=== PATIENT | female | born 1960 | race Caucasian/White ===

== ENCOUNTER 2024-01-07 12:20 | Inpatient (IN) | payer MEDICARE, SELFPAY ==
[2024-01-07] VITALS (14 sets, daily range): BP systolic 92–132; BP diastolic 70–115; PULSE 88–144; RESP 14–25; TEMP 36.1–37.1; O2SAT 94–100; BMI 53.1
--- NOTE | ~2024-01-07 | XR_ITS ---
EXAMINATION: XR chest PICC line Exam Date/Time: 01/12/2024 16:25 CDT HISTORY: PICC line placement Comparison: 01/07/2024. RESULT: Lines, tubes, and devices: New right upper extremity PICC which doubles back into an upper extremity vein, tip excluded from the [id number]. Lungs and pleura: Clear. Cardiomediastinal silhouette: Stable. Other: No acute osseous or upper abdominal finding. IMPRESSION: Malpositioned right upper extremity PICC. Discussed with technologist, practitioner aware at the time of the procedure, PICC apparently removed with a plan to place a central line. Reviewed, dictated and finalized at location K. IMPRESSION: Malpositioned right upper extremity PICC. Discussed with technologist, nigeltiti marli aware at the time of the procedure, PICC apparently removed with a plan to place a central line.
--- NOTE | ~2024-01-07 | US_ITS ---
EXAMINATION: US venous doppler [facility] DATE: 01/08/2024 09:13 INDICATION: Bilateral lower limb pain, swelling and erythema TECHNIQUE: Grayscale ultrasound images without and with compression and Doppler ultrasound images of the bilateral lower extremity veins were obtained. COMPARISON: None. FINDINGS: The visualized portions of right common femoral vein, profunda (deep) femoral vein, femoral vein, pop liteal vein, posterior tibial veins, peroneal veins, gastrocnemius vein and greater saphenous vein ou tflow are patent. The visualized portions of left common femoral vein, profunda femoral vein, femoral vein, popliteal v ein, posterior tibial veins, peroneal veins, gastrocnemius vein and greater saphenous vein outflow ar e patent. IMPRESSION: 1. No deep venous thrombosis in either lower limb. Reviewed, dictated and finalized at location B.
--- NOTE | ~2024-01-07 | XR_ITS ---
EXAMINATION: XR chest 1V portable Exam Date/Time: 01/07/2024 22:35 CDT HISTORY: rapid atrial fibrillation Comparison: None. RESULT: Lines, tubes, and devices: None. Lungs and pleura: Lordotic positioning. No focal consolidation, pleural effusion, or pneumothorax. Cardiomediastinal silhouette: Normal heart size. Somewhat nodular opacities over the left hilum. Other: No acute osseous or upper abdominal finding. IMPRESSION: Left hilar opacities may represent pulmonary arterial enlargement, as can be seen with pulmonary laurel rial hypertension, and/or lymphadenopathy. Reviewed, dictated and finalized at location K. IMPRESSION: Left hilar opacities may represent pulmonary arterial enlargement, as can be se en with pulmonary arterial hypertension, and/or lymphadenopathy.
--- NOTE | ~2024-01-07 | US_ITS ---
EXAMINATION: US renal BI DATE: 01/08/2024 09:13 INDICATION: Renal insufficiency. TECHNIQUE: Multiple ultrasound grayscale images of the kidneys were obtained. COMPARISON: None. FINDINGS: The right kidney measures 10.8 x 5.3 x 5.5 cm. The left kidney measures 9.8 x 6.0 x 4.3 cm. The kidne ys demonstrate normal echogenicity. There is no hydronephrosis in either kidney. No stones identifie d. The bladder is is not visualized, likely decompressed with patient reportedly recently voided. IMPRESSION: 1. Normal kidneys without hydronephrosis. Reviewed, dictated and finalized at location B.
--- NOTE | 2024-01-07 12:58 | PC.NURSE ---
spoke with RN in wound clinic. will come down for evaluation
--- NOTE | 2024-01-07 13:06 | ED.WOUNDLAC ---
HPI - Wound/Laceration General Chief Complaint: Wound/Laceration Stated Complaint: weird growth on my legs Time Seen by Provider: 01/07/24 12:39 History of Present Illness HPI narrative: Patient is a 63-year-old female presenting with wounds on her legs. Patient states that for the last 5-6 weeks she has had wounds on both of her lower legs. States that they started out as small blisters that then expanded and have not gone away. States that they slough a lot of white material when she cleans them with certain products. States that they do not bleed when she does this. States that she is concerned about infection. She does not have a PCP. She has had some intermittent nausea but denies other systemic symptoms. Related Data Home Medications Medication Instructions Recorded Confirmed sotalol 80 mg tablet 80 mg PO DAILY 01/07/24 01/07/24 Allergies Allergy/AdvReac Type Severity Reaction Status Date / Time codeine Allergy Unknown Other Verified 01/07/24 12:21 diazepam Allergy Unknown Other Verified 01/07/24 12:21 Review of Systems Review of Systems: All systems reviewed & are unremarkable except as noted in HPI and below PMFSH Past Medical History Medical History Cervical cancer (2011) Paroxysmal atrial fibrillation Surgical History Surgical History History of hysterectomy (2011) For cervical cancer. Family History Family History Mother CKD (chronic kidney disease) Father Lung cancer Sibling Non-Hodgkin lymphoma Social History Social History Social History: Surrogate medical decision maker: Kishan Forrester, brother. Code status: Full code. Smoking status: Never smoker Alcohol intake: never Substance use: never Do You Feel Safe in your Home?: Yes Lack of Transportation: YES Lack of Food: Never True Current Housing: I Have Housing Concerned About Future Housing: No Difficulty Paying Gas/Electric Bills: No Difficulty Paying for Meds: No Currently Unemployed: No Education: Master's Degree or Higher Difficulty w/ Childcare or Family Care: No Additional living arrangements comments: The patient lives in her own home in [place]. She has a boxer named Dana. 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. 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: No Exam Narrative: GENERAL: Nontoxic, no acute distress HEAD: Normocephalic, atraumatic. EYES: PERRLA and EOMI. ENT: grossly unremarkable NECK: Supple. CHEST: Clear to auscultation. No respiratory distress. HEART: Regular rate and rhythm ABDOMEN: Soft, nontender, nondistended EXTREMITIES: bilateral pitting edema lower legs SKIN: Warm, large superficial wounds anterior shins with thick white fibrous material sloughing off in varying degrees, some weeping of serous fluid, no bleeding NEURO: No focal deficits. Alert and oriented x3. PSYCH: Normal mood and affect. Course Vital Signs Vital signs: Vital Signs Temperature 96.9 F L 01/07/24 12:22 Pulse Rate 124 H 01/07/24 12:22 Respiratory Rate 20 01/07/24 12:22 Blood Pressure 132/115 H 01/07/24 12:22 Pulse Oximetry 98 01/07/24 12:22 Oxygen Delivery Room Air 01/07/24 12:22 Temperature 97 F L 01/14/24 05:56 Pulse Rate 84 01/14/24 12:00 Respiratory Rate 18 01/14/24 05:56 Blood Pressure 110/82 01/14/24 05:56 Pulse Oximetry 97 01/14/24 05:56 Oxygen Delivery Room Air 01/14/24 08:00 MDM - Wound/Laceration MDM Narrative Medical decision making narrative: 63-year-old female presenting with bilateral leg wounds. Patient is tachycardic, otherwise vitals are within normal limits. EKG per my interpretation shows AFib with RVR. Wound care graciously came to see the pat
--- NOTE | 2024-01-07 13:23 | ECG_ITS ---
Measurements Intervals [place] Rate: 148 P: TN: 0 QRS: 56 QRSD: 100 T: 29 QT: 303 QTc: 477 Interpretive Statements ATRIAL FIBRILLATION WITH RAPID VENTRICULAR RESPONSE INCOMPLETE RIGHT BUNDLE BRANCH BLOCK LOW QRS VOLTAGE IN PRECORDIAL LEADS BASELINE ARTIFACT- II, III, AVF ABNORMAL ECG NO PREVIOUS ECG AVAILABLE FOR COMPARISON Electronically Signed On 01-07-2024 13:44:42 CDT by Vernon Mcgowan D.O.
[2024-01-07 13:32] LABS: Basophils Absolute Auto 0.1 K/mm3 (0.0-0.1); Basophils Percent Auto 0.5 % (0.2-1.2); Eosinophils Absolute Auto 0.1 K/mm3 (0-0.3); Eosinophils Percent Auto 0.5 % (0-4.4); Hematocrit 44.2 % (37.0-47.0); Hemoglobin 14.7 g/dL (12.0-15.0); Immature Granulocyte Absolute 0.07 K/mm3 (0.00-0.031); Immature Granulocyte Percent A 0.7 % (0-0.5); Lymphocytes Absolute Auto 1.07 K/mm3 (0.9-3.2); Lymphocytes Percent Auto 10.6 % (18.3-44.2); Mean Corpuscular HGB Conc 33.3 g/dl (32-36); Mean Corpuscular Hemoglobin 30.4 pg (26-34); Mean Corpuscular Volume 91.5 fl (80-100); Mean Platelet Volume 9.2 fl (7.4-10.4); Monocytes Absolute Auto 0.7 K/mm3 (0.1-0.6); Monocytes Percent Auto 7.3 % (2.6-8.5); Neutrophils Absolute Auto 8.1 K/mm3 (1.3-6.7); Neutrophils Percent Auto 80.4 % (45.5-73.1); Platelet Count Result 390 k/mm3 (150-375); Red Blood Count 4.83 M/mm3 (4.2-5.4); Red Cell Distribution Width 13.9 % (11.5-14.5); White Blood Count 10.1 K/mm3 (4.5-10.0)
[2024-01-07] MEDS: SODIUM CHLORIDE 0.9% IV 1,000 ML 999 ML IV CONT ×2 (13:38→14:58)
[2024-01-07 13:39] LABS: Lactic Acid Reflex 1.2 mmol/L (0.7-2.0)
[2024-01-07] MEDS: KETOROLAC 30 MG/ML VIAL (*BKC) IV PUSH (13:39)
[2024-01-07 13:42] LABS: Alanine Aminotransferase 23 U/L (6-35); Albumin Level 3.9 g/dL (3.5-5.1); Alkaline Phosphatase 154 U/L (38-126); Anion Gap 10 mmol/L (8-16); Aspartate Amino Transferase 34 U/L (14-36); Bilirubin,Total 1.6 mg/dL (0.2-1.3); Blood Urea Nitrogen 45 mg/dL (7-17); Calcium 9.3 mg/dL (8.4-10.2); Carbon Dioxide 19 mmol/L (22-30); Chloride 102 mmol/L (98-107); Estimated Glomerular Filt Rate 45; Glucose 102 mg/dL (65-110); Potassium 5.3 mmol/L (3.4-5.0); Sodium 131 mmol/L (137-145)
--- NOTE | 2024-01-07 14:09 | PC.NURSE ---
wound clinic RN cleansed and dressed bilateral leg wounds, patient called out screaming that it was painful. offered pain medications to get over initial pain and patient refused. get them off of me . dressings removed and provider aware.
[2024-01-07] MEDS: CEFEPIME 1 GM/NS 50 ML 1 GM/50 ML BAG IVPB (14:55)
[2024-01-07] MEDS: dilTIAZem HCl INJ 25 MG/5 ML VIAL 10 MG IV PUSH (15:29)
[2024-01-07] MEDS: dilTIAZem 100 MG/100 ML 100 MG/100 ML BAG IV CONT ×2 (15:34→20:21)
[2024-01-07] MEDS: VANCOMYCIN 1,500 MG/NS 500 ML 1,500 MG/500 ML BAG 250 MG IVPB (15:56)
--- NOTE | 2024-01-07 16:47 | ADMGEN ---
This patient, Pili Forrester, was admitted to IMU Room 210-01. Patient/family oriented to hospital policies and general routines including ID bracelet, bed and alarms, visiting hours, pain management, procedures, bathroom and other care routines, personal items, smoking policy, room service/diet, and visiting hours. Information on how to activate the Rapid Response Team has been discussed. Patient/Family are encouraged to report perceived risks to care and to ask questions if they do not understand what they are told or what they should do.
--- NOTE | 2024-01-07 22:15 | PM.IMHP ---
H&P: HPI History of Present Illness Date/Time: 01/07/24 19:30 Chief Complaint: Lower extremity wounds. Narrative: This is a pleasant 63-year-old female with paroxysmal atrial fibrillation and cervical cancer in 2011 who presented to the emergency department via private vehicle from home for evaluation of lower extremity wounds. The patient provides the following history. About 6 weeks ago she developed a couple of small blisters on her shins which progressed in size rapidly along with swelling in her legs. Eventually the blisters burst on their own and drained serous fluid. Since that time they have been quite painful and she has noticed white/yellow plaquing around the periphery. She has been trying to care for them at home using Betadine but the areas have not improved and she decided to come in today for evaluation to rule out infection. She has otherwise been feeling okay. On arrival to the emergency department she was found to be in atrial fibrillation with rapid ventricular response and she admits that she has had palpitations and racing heart with activity for an unknown period of time. She is a patient of Dr. Pfeiffer and he prescribes her sotalol however she does not take it as prescribed, only taking 40 mg daily due to ongoing issues with low blood pressures. She has not been on anticoagulation for quite some time. Her appetite has been okay. She has no known history of congestive heart failure or venous thromboembolism. She denies fever, chills, sweats, chest pain, pleuritic pain, cough, shortness of breath, nausea, vomiting, diarrhea, and dysuria. In the ED: She was afebrile on arrival and was in atrial fibrillation with rapid ventricular response as above. Blood pressures have been towards the lower end of normal. Labs were significant for a WBC count of 10.1, sodium 131, potassium 5.3, BUN 45, creatinine 1.20, lactic acid 1.2. EKG showed atrial fibrillation with rapid ventricular response and incomplete right bundle-branch block. She was started on a diltiazem drip with improvement in her rate. She was given a dose of cefepime and vancomycin for possible infection of the legs. She is being admitted in this setting for further treatment and evaluation. Review of Systems Review of Systems: Twelve systems were reviewed and are negative except for as per HPI. [facility] Past Medical History Medical History (Updated 01/08/24 @ 00:10 by Leonor Garcia PA-C) Cervical cancer (2012) Paroxysmal atrial fibrillation Surgical History Surgical History (Updated 01/07/24 @ 22:21 by Leonor Garcia PA-C) History of hysterectomy (2012) For cervical cancer. Family History Family History Mother CKD (chronic kidney disease) Father Lung cancer Sibling Non-Hodgkin lymphoma Social History Social History (Updated 01/07/24 @ 22:22 by Leonor Garcia PA-C) Social History: Surrogate medical decision maker: Kishan Forrester, brother. Code status: Full code. Smoking status: Never smoker Alcohol intake: never Substance use: never Do You Feel Safe in your Home?: Yes Lack of Transportation: YES Lack of Food: Never True Current Housing: I Have Housing Concerned About Future Housing: No Difficulty Paying Gas/Electric Bills: No Difficulty Paying for Meds: No Currently Unemployed: No Education: Master's Degree or Higher Difficulty w/ Childcare or Family Care: No Additional living arrangements comments: The patient lives in her own home in [place]. She has a boxer named Dana. 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: No Meds Home Medications and Allergies Home Medications Medication Instructions Recorded Confirmed Type sotalol 80 mg tablet 80 mg PO DAILY 01/07/24 01/07/24 History Allergies Allergy/AdvReac Type Severity Reaction Status Date / Time c
[2024-01-07 23:22] LABS: Anion Gap 11 mmol/L (8-16); Blood Urea Nitrogen 44 mg/dL (7-17); Carbon Dioxide 13 mmol/L (22-30); Chloride 109 mmol/L (98-107); Potassium 4.7 mmol/L (3.4-5.0); Sodium 133 mmol/L (137-145)
[2024-01-07 23:23] LABS: Creatine Kinase 30 U/L (30-135); Estimated CRCL calculation 67 ml/min; Estimated Glomerular Filt Rate 56; Glucose 89 mg/dL (65-110); Magnesium 2.3 mg/dL (1.6-2.3)
[2024-01-07 23:31] LABS: NT Pro B Type Natriuretic Pept 6160 pg/mL (19.9-100)
[2024-01-07] MEDS: ACETAMINOPHEN 325 MG TABLET 650 MG PO (23:53)
[2024-01-08] VITALS (22 sets, daily range): BP systolic 96–120; BP diastolic 56–83; PULSE 78–135; RESP 12–18; TEMP 36.1–36.7; O2SAT 94–100
--- NOTE | 2024-01-08 01:49 | PC.NURSE ---
Pt attempted to get out of bed on her own. Bed alarm going off. Talked to pt about the importance of safety while in the hospital. Pt stated her legs are really hurting and she wants to get up. Recliner brought to pt's room. Pt agreeable to using the recliner. Pt given call light prior to nurse leaving the room and reminded to use it. Chair alarm in place.
[2024-01-08 05:11] LABS: Estimated CRCL calculation 67 ml/min; Estimated Glomerular Filt Rate 56
[2024-01-08 05:43] LABS: Free T4 Free Thyroxine Reflex 1.16 ng/dL (0.78-2.19)
[2024-01-08 06:30] LABS: Total Triiodothyronine (T3) 0.89 NG/ML (0.97-1.69)
[2024-01-08] MEDS: ACETAMINOPHEN 325 MG TABLET 650 MG PO (09:23)
[2024-01-08] MEDS: ENOXAPARIN 40 MG/0.4 ML SYRINGE SUB-Q (09:23)
[2024-01-08] MEDS: VANCOMYCIN 1,500 MG/NS 500 ML 1,500 MG/500 ML BAG 250 MG IVPB (09:43)
--- NOTE | 2024-01-08 10:47 | PM.CNCAR ---
Assessment and Plan Assessment and plan (1) Atrial fibrillation with rapid ventricular response: Code(s): I48.91 - Unspecified atrial fibrillation Status: Acute Assessment and Plan: Patient has longstanding complicated history with atrial flutter status post caval tricuspid isthmus ablation 2012 with paroxysmal atrial fibrillation subsequently. She was previously seen by electrophysiology many years ago but was lost to follow-up and then was seen again in our office in 2020 with last visit August 2022. CHADS2 Vasc score 2 female, age 65 or older). Therefore, according to the most recent guidelines aspirin daily is acceptable less additional risk factor identified such as hypertension, CHF, diabetes mellitus, CAD/PAD, CVA etc. as such, continue aspirin 81 mg daily without resume Xarelto unless BP tender cardioversion or to be undertaken. Given her complex and longstanding history this will not be our plan is likelihood for success more main is sinus rhythm with cardioversion expected to be very low. Unfortunately, complicated management for multiple reasons including hypertensive response to various medications, noncompliance with follow-up and medications with AFib with RVR in setting of multiple painful lower extremity wounds and clinical suspicion for cellulitis. Patient is relatively asymptomatic with atrial fibrillation. She is tolerating diltiazem 2.5 milligram/hour continuous infusion at this time. Sotalol 80 mg daily which she was taking was not controlling her atrial fibrillation with regards to rhythm therefore continuation of her prior home regimen less likely to be effective or recommended. We discussed very stops quitting AV nikky blocking agents, antiarrhythmics including but not limited to amiodarone, dronedarone, sotalol. Patient has intolerance to flecainide in the past. If patient unable to tolerate specific antiarrhythmic and her AV nikky blocking agent due to hypotension, which were limited in this regard. Dronedarone may be a reasonable option although this is a b.i.d. medication the must be taken with food and require at least 3-4 day washout of sotalol prior to initiation. If she is able to tolerate oral diltiazem with adequate heart rate control this may be reasonable. For now as she has only just begun receiving IV antibiotics for painful lower extremity leg wounds will continue IV diltiazem 2.5 milligram/hour for the time being with plans to transition to oral regimen as tolerated tomorrow. ED continue to monitor BP closely. Local wound care. I suspect her heart rate control may be somewhat more manageable once her pain is improved and underlying infection treated. Furthermore, considering mildly abnormal thyroid with TSH 6.960 would prefer to avoid amiodarone in any event. -goal for management will be heart rate control strategy as opposed to rhythm control provided she is relatively asymptomatic and tolerating medical therapy. As above, management complicated due to recorded tolerance is, failures a prior medical therapy including AV nikky blocking agents and antiarrhythmic therapy. She may benefit from outpatient electrophysiology consultation for further recommendations in this regard. Unlikely she has an AFib ablation candidate given her history and duration of atrial fibrillation. -obtain 2D echo to assess LV size/function, valve pathology, chamber size and pulmonary pressures. Recommendations to follow. -apnea link overnight to screen for sleep apnea. (2) Wounds, multiple: Code(s): T07.XXXA - Unspecified multiple injuries, initial encounter Status: Acute Assessment and Plan: As above, continue IV vancomycin and ceftriaxone. Cultures pending. Wound care. Per primary service. (3) Edema of both legs: Code(s): R60.0 - Localized edema Status: Acute Assessment and Plan: Local wound management. Patient is not clinically in decompensated heart failure present. Elevate l
[2024-01-08] MEDS: SODIUM CHLORIDE 0.9% IV 1,000 ML 100 ML IV CONT (12:30)
[2024-01-08] MEDS: MORPHINE SULFATE (*CRX) 4 MG/ML INJ IV PUSH (12:31)
[2024-01-08] MEDS: HYDROcodone/acetaminophen (*CRX) 5-325 MG TABLET 1 TAB PO (14:09)
--- NOTE | 2024-01-08 14:28 | PCPTNOTE ---
pt reports she is having pain in her feet and is not feeling up to PT today, but plans to participate tomorrow
[2024-01-08] MEDS: ONDANSETRON INJ 4 MG/2 ML VIAL IV PUSH (15:55)
--- NOTE | 2024-01-08 17:05 | PM.IMPN ---
Progress Note: A&P Assessment and Plan (1) Hypothyroidism: Code(s): E03.9 - Hypothyroidism, unspecified Status: Acute (2) Morbid obesity with BMI of 50.0-59.9, adult: Code(s): E66.01 - Morbid (severe) obesity due to excess calories; Z68.43 - Body mass index [BMI] 50.0-59.9, adult Status: Acute (3) Noncompliance w/medication treatment due to intermit use of medication: Code(s): Z91.148 - Patient's other noncompliance with medication regimen for other reason Status: Acute (4) Edema of both legs: Code(s): R60.0 - Localized edema Status: Acute (5) Wounds, multiple: Code(s): T07.XXXA - Unspecified multiple injuries, initial encounter Status: Acute (6) Renal insufficiency: Code(s): N28.9 - Disorder of kidney and ureter, unspecified Status: Acute (7) Electrolyte abnormality: Code(s): E87.8 - Other disorders of electrolyte and fluid balance, not elsewhere classified Status: Acute (8) Atrial fibrillation with rapid ventricular response: Code(s): I48.91 - Unspecified atrial fibrillation Status: Acute Plan Patient placed under director traffic and planning, advanced to full inpatient status She has multiple issues going on and she admits to be a non-compliant with meds at home Continuous cardiac tele-monitoring Continue with IV Cardizem drip to be titrated to keep heart rate around 100 Monitor cardiac enzymes ?3 Full 2-D echo with color-flow and doppler ordered in am to evaluate cardiac structure and function Cardiology consultation for evaluation, further treatment recommendations and work up Patient has bilateral lower leg weeping ulcers without much intervention over the last few weeks Continue with IV antibiotics in the form of IV vancomycin and Rocephin 9 dressing changes as per wound care Strictly advised patient to be compliant with treatment for her medical issues and bilateral lower leg wounds Patient has mild hypothyroidism and she will be started on low-dose Synthroid PT/OT evaluation ordered ? Patient seen and examined at bedside during my morning rounds ? Collaborated with patient's nurse at the bedside in detail and addressed all concerns ? Labs, electrolytes, radiology, investigations and test results reviewed ? Consult/Nursing/Ancilliary notes on the chart reviewed and appreciated ? Spoke with patient/family at the bedside and answered all the questions that they had Repeat labs in a.m. Electrolyte replacement as per protocol. Patient will be monitored very closely on the floor. Further recommendations as per the hospital course. Personal history of noncompliance with medical treatment and regimen: STRICTLY advised patient to be compliant with meds and medical recommendations. Advised patient to get established with a PCP upon discharge, take care of meds, diet and bring patient's life back on track. Time Spent With Patient Time with patient: 15 - 25 minutes Subjective Date/time seen: 01/08/24 17:05 Interval history: Patient seen and evaluated bedside. She has bilateral swelling of her legs with weeping ulcers for multiple weeks without much medical intervention. On low-dose IV Cardizem drip for A.fib control. Review of Systems Review of Systems: 14 systems were reviewed with pertinent positives and negatives per HPI. Except as documented in the HPI/progress notes, all other systems were reviewed and are negative. All systems reviewed & are unremarkable except as noted in HPI and below Exam Narrative: PHYSICAL EXAMINATION: Vital signs: Please see the chart General physical exam: Super morbidly obese female, sitting on chair at bedside, complains of being tired and fatigued Head/eyes: Atraumatic, EOMI, PERRLA ENT: Moist mucous membranes, nasal passages clear Neck: Supple, full range of motion, trachea midline CVS: S1 + S2, irregularly irregular rate and rhythm Respiratory: Bilaterally decreased air entry in both lung hurt
--- NOTE | 2024-01-08 18:17 | PC.NURSE ---
Patient appears to be more lethargic and have a dusky but clammy skin tone when this nurse entered room. Blood sugar and vital signs obtained. Patient states she just feels tired and still nauseated. Dr. Madrid called and notified of blood pressure and that the patient still isn't feeling well, nauseated and looks dusky and clammy. He states to just watch her for now and that he will swing by to see her in a bit.
[2024-01-08 18:23] LABS: Glucose Point of Care 91 mg/dl (65-105)
[2024-01-08] MEDS: dilTIAZem 100 MG/100 ML 100 MG/100 ML BAG IV CONT (21:46)
[2024-01-09] VITALS (22 sets, daily range): BP systolic 94–108; BP diastolic 53–68; PULSE 65–141; RESP 17–22; TEMP 35.8–36.7; O2SAT 95–100
[2024-01-09] MEDS: SODIUM CHLORIDE 0.9% IV 1,000 ML 75 ML IV CONT (02:05)
[2024-01-09] MEDS: dilTIAZem 100 MG/100 ML 100 MG/100 ML BAG IV CONT (02:51)
--- NOTE | 2024-01-09 02:52 | PC.NURSE ---
Addendum entered by Lisa Roca, RN 01/09/24 02:56: Pt. did not receive 0400 dose of vanco due to no IV access. aware. Original Note: Consulted MD for recommendation on pt.'s cardizem gtt. We lost all IV access, and are unable to get another one, even with our [employer] efforts. MD ordered 60 mg Cardizem PO to hold her over through the night.
[2024-01-09] MEDS: dilTIAZem HCL 60 MG TABLET PO ×4 (03:58→21:50)
[2024-01-09 04:56] LABS: Basophils Absolute Auto 0.1 K/mm3 (0.0-0.1); Basophils Percent Auto 0.5 % (0.2-1.2); Eosinophils Absolute Auto 0.1 K/mm3 (0-0.3); Eosinophils Percent Auto 1.4 % (0-4.4); Hemoglobin 13.9 g/dL (12.0-15.0); Immature Granulocyte Absolute 0.08 K/mm3 (0.00-0.031); Immature Granulocyte Percent A 0.8 % (0-0.5); Lymphocytes Absolute Auto 0.93 K/mm3 (0.9-3.2); Lymphocytes Percent Auto 9.4 % (18.3-44.2); Mean Corpuscular HGB Conc 32.3 g/dl (32-36); Mean Corpuscular Hemoglobin 30.5 pg (26-34); Mean Corpuscular Volume 94.5 fl (80-100); Mean Platelet Volume 9.3 fl (7.4-10.4); Monocytes Absolute Auto 0.9 K/mm3 (0.1-0.6); Monocytes Percent Auto 9.4 % (2.6-8.5); Neutrophils Absolute Auto 7.8 K/mm3 (1.3-6.7); Neutrophils Percent Auto 78.5 % (45.5-73.1); Platelet Count Result 335 k/mm3 (150-375); Red Blood Count 4.55 M/mm3 (4.2-5.4); Red Cell Distribution Width 14.1 % (11.5-14.5); White Blood Count 9.9 K/mm3 (4.5-10.0)
[2024-01-09 05:20] LABS: Anion Gap 7 mmol/L (8-16); Blood Urea Nitrogen 27 mg/dL (7-17); Carbon Dioxide 19 mmol/L (22-30); Chloride 108 mmol/L (98-107); Estimated CRCL calculation 94 ml/min; Estimated Glomerular Filt Rate > 60; Glucose 97 mg/dL (65-110); Phosphorus 3.7 mg/dL (2.5-4.5); Sodium 134 mmol/L (137-145)
[2024-01-09] MEDS: ENOXAPARIN 40 MG/0.4 ML SYRINGE SUB-Q (09:01)
[2024-01-09] MEDS: PERFLUTREN LIPID MICROSPHERES 1.5 ML VIAL DILUTED TO 10 ML TOTAL VOLUME IV PUSH (09:45)
[2024-01-09] MEDS: VANCOMYCIN 1,500 MG/NS 500 ML 1,500 MG/500 ML BAG 250 MG IVPB (10:13)
--- NOTE | 2024-01-09 10:50 | PM.PNCARD ---
Progress Note: A&P Assessment and Plan (1) Atrial fibrillation with rapid ventricular response: Code(s): I48.91 - Unspecified atrial fibrillation Status: Acute Assessment and Plan: Patient has longstanding complicated history with atrial flutter status post caval tricuspid isthmus ablation 2012 with paroxysmal atrial fibrillation subsequently. She was previously seen by electrophysiology many years ago but was lost to follow-up and then was seen again in our office in 2020 with last visit August 2022. Sotalol discontinued Pursuing rate control with Diltiazem - rate generally controlled in the 70's - 80's Discontinue Diltiazem gtt and continue p.o. diltiazem 60mg q6h [id number] score is 2 - she had been anticoagulated in the past and stopped taking Xarelto for unknown reasons. Will discuss risks and benefits further with patient and may restart DOAC prior to discharge. (2) Wounds, multiple: Code(s): T07.XXXA - Unspecified multiple injuries, initial encounter Status: Acute Assessment and Plan: As above, continue IV vancomycin and ceftriaxone. Cultures pending. Wound care. Per primary service. (3) Edema of both legs: Code(s): R60.0 - Localized edema Status: Acute Assessment and Plan: Local wound management. Patient is not clinically in decompensated heart failure present. Elevate legs, continue IV antibiotics. (4) Noncompliance w/medication treatment due to intermit use of medication: Code(s): Z91.148 - Patient's other noncompliance with medication regimen for other reason Status: Acute Assessment and Plan: Noncompliance with Xarelto in the past (5) Morbid obesity with BMI of 50.0-59.9, adult: Code(s): E66.01 - Morbid (severe) obesity due to excess calories; Z68.43 - Body mass index [BMI] 50.0-59.9, adult Status: Acute (6) Hypothyroidism: Code(s): E03.9 - Hypothyroidism, unspecified Status: Acute Assessment and Plan: New diagnosis elevated TSH likely subclinical but need to factor in with regards to medical therapy. Defer to primary service for definitive management. Unlikely this is contributing significantly to atrial fibrillation her arrhythmia history is longstanding. Subjective Date/time seen: 01/09/24 10:50 Interval history: Cardiology follow up for atrial fibrillation Feels better today. No palpitations, shortness of breath, or chest pain. Review of Systems Review of Systems: Remainder of the review of systems is otherwise negative aside from that noted in the HPI. All systems reviewed & are unremarkable except as noted in HPI and below Constitutional: Constitutional: Reports as per HPI and Reports no additional constitutional complaints Eyes: Eyes: Reports as per HPI and Reports no additional eye complaints ENT: Reports system reviewed and no additional complaints, except as documented and Reports as per HPI Cardiovascular: Cardiovascular: Reports as per HPI and Reports no additional cardiovascular complaints Respiratory: Respiratory: Reports as per HPI and Reports no additional respiratory complaints Gastrointestinal: Gastrointestinal: Reports as per HPI and Reports no additional gastrointestinal complaints Genitourinary: Genitourinary: Reports as per HPI Musculoskeletal: Musculoskeletal: Reports no additional musculoskeletal complaints and Reports as per HPI Integumentary/Breasts: Skin/Breast: Reports system reviewed and no additional complaints, except as docu and Reports as per HPI Neurologic: Reports system reviewed and no additional complaints, except as documented and Reports as per HPI Psychiatric: Psychiatric: Reports no additional psychiatric complaints and Reports as per HPI Endocrine: Endocrine: Reports no additional endocrine complaints and Reports as per HPI Hematologic/Lymphatic: Hematologic/Lymphatic: Reports no additional hematologic/lymphatic complaints and Repor
[2024-01-09] MEDS: MORPHINE SULFATE (*CRX) 4 MG/ML INJ IV PUSH (11:07)
--- NOTE | 2024-01-09 11:42 | PCOTNOTE ---
Addendum entered by Judith Davis, OT 01/09/24 13:41: Attempted 3rd time today and pt has been nauseous and just had an episode of emesis. Will attempt to see pt tomorrow as time allows. Original Note: Attempted to see pt twice this am. First attempt, pt was getting an Echo and on the second attempt, RN is getting ready to do a dressing change on BLEs which are weeping and RN asks that she not get up until dressing change completed. Will continue to follow.
[2024-01-09] MEDS: ONDANSETRON INJ 4 MG/2 ML VIAL IV PUSH (14:15)
--- NOTE | 2024-01-09 17:31 | PM.IMPN ---
Progress Note: A&P Assessment and Plan (1) Hypothyroidism: Code(s): E03.9 - Hypothyroidism, unspecified Status: Acute (2) Morbid obesity with BMI of 50.0-59.9, adult: Code(s): E66.01 - Morbid (severe) obesity due to excess calories; Z68.43 - Body mass index [BMI] 50.0-59.9, adult Status: Acute (3) Noncompliance w/medication treatment due to intermit use of medication: Code(s): Z91.148 - Patient's other noncompliance with medication regimen for other reason Status: Acute (4) Edema of both legs: Code(s): R60.0 - Localized edema Status: Acute (5) Wounds, multiple: Code(s): T07.XXXA - Unspecified multiple injuries, initial encounter Status: Acute (6) Renal insufficiency: Code(s): N28.9 - Disorder of kidney and ureter, unspecified Status: Acute (7) Electrolyte abnormality: Code(s): E87.8 - Other disorders of electrolyte and fluid balance, not elsewhere classified Status: Acute (8) Atrial fibrillation with rapid ventricular response: Code(s): I48.91 - Unspecified atrial fibrillation Status: Acute Plan Patient placed under motorcycle tester, advanced to full inpatient status She has multiple issues going on and she admits to be non-compliant with meds at home Continuous cardiac tele-monitoring AFib now under control control with heart rate 70-80 DC IV Cardizem drip, started patient on oral Cardizem as per Cardiology Monitor heart rate and blood pressure closely Full 2-D echo with color-flow and doppler ordered to evaluate cardiac structure and function which showed preserved left ventricular function with EF 50-55% Patient has bilateral lower leg weeping ulcers without much intervention over the last few weeks Continue with IV antibiotics in the form of IV vancomycin and Rocephin Dressing changes as per wound care ... A sweet dressing changes to Q 8-12 hours as she has consistently weeping wounds Wound cultures ordered from both left and right lower legs Strictly advised patient to be compliant with treatment for her medical issues and caring for bilateral lower leg wounds Patient has mild hypothyroidism hence started on low-dose Synthroid, which she refused as she has fluctuating thyroid levels and follows up with Endocrinology PT/OT evaluation ordered ? Patient seen and examined at bedside during my morning rounds ? Collaborated with patient's nurse at the bedside in detail and addressed all concerns ? Labs, electrolytes, radiology, investigations and test results reviewed ? Consult/Nursing/Ancilliary notes on the chart reviewed and appreciated ? Spoke with patient/family at the bedside and answered all the questions that they had Repeat labs in a.m. Electrolyte replacement as per protocol. Patient will be monitored very closely on the floor. Further recommendations as per the hospital course. Personal history of noncompliance with medical treatment and regimen: STRICTLY advised patient to be compliant with meds and medical recommendations. Advised patient to get established with a PCP upon discharge, take care of meds, diet and bring patient's life back on track. Time Spent With Patient Time with patient: 15 - 25 minutes Subjective Date/time seen: 01/09/24 17:31 Interval history: Patient lying in bed during my morning rounds. Feels tired and fatigued. Complains of weeping wounds in both legs. AFib is under control. IV Cardizem switched to p.o. Review of Systems Review of Systems: 14 systems were reviewed with pertinent positives and negatives per HPI. Except as documented in the HPI/progress notes, all other systems were reviewed and are negative. All systems reviewed & are unremarkable except as noted in HPI and below Exam Narrative: PHYSICAL EXAMINATION: Vital signs: Please see the chart General physical exam: Super morbidly obese female, sitting on chair at bedside, complains of being tired and fatigued Head/eyes: At
--- NOTE | 2024-01-09 18:18 | PC.NURSE ---
Transferred from IMU per hospital bed. No complaints voiced.
--- NOTE | 2024-01-09 18:25 | PC.NURSE ---
Addendum entered by Mercedes Gonzalez RN 01/09/24 18:28: This patient, Pili Forrester, was transferred to [ [facility]] on 01/09/24 at 1817. Personal belongings sent with patient. Report given to [Kelley ]. Appropriate documentation sent with patient. Original Note: This patient, Pili Forrester, was transferred to [ ] on 01/09/24 at 1825. Personal belongings sent with patient. Report given to [ ]. Appropriate documentation sent with patient.
--- NOTE | 2024-01-09 22:29 | ECHO_ITS ---
Patient Info Name: Pili Forrester Age: 63 years : 1960 Gender: Female Ht: 63 in Wt: 300 lbs BSA: 2.55 m2 HR: 76 bpm BP: 100 / 90 mmHg Heart Rhythm: Atrial Fibrillation Technical Quality: Good Exam Date: 01/09/2024 9:27 AM Exam Location: Echo Lab Patient Status: Inpatient Admit Date: 01/08/2024 Staff Ordering Physician: Leonor Garcia PA-C Vp Product Marketing: Jasmin Mckenna RDCS Attending Provider: Dennis Madrid MD Referring Physician: Edgar Correa MD; Exam Type: CA echo dop color flow w con Study Info Indications - suspected congestive heart failure, a fib Complete two-dimensional, color flow and Doppler transthoracic echocardiogram is performed with contrast to opacify the left ventricle and to improve the deliniation of the left ventricle endocardial borders. Contrast/Agitated Saline Contrast/Ag. Saline: Definity Amount: 3.00 ml Summary 1. Left ventricular chamber dimension is normal. 2. Left ventricular systolic function is normal, estimated at 50-55%. 3. Right ventricular chamber dimension is mildly enlarged. 4. Right ventricular systolic function is normal. 5. Left atrial chamber dimension is severely enlarged. 6. Right atrial chamber dimension is severely enlarged. 7. There is moderate to severe mitral valve regurgitation. This may be underestimated due to the eccentricity of the jet. 8. There is moderate tricuspid valve regurgitation. Left Ventricle Left ventricular chamber dimension is normal. Left ventricular systolic function is normal, estimated at 50-55%. There is no increased left ventricular wall thickness. Right Ventricle Right ventricular chamber dimension is mildly enlarged. Right ventricular systolic function is normal. Left Atria Left atrial chamber dimension is severely enlarged. Right Atria Right atrial chamber dimension is severely enlarged. Atrial Septum Intact interatrial septum visualized by color flow imaging. Aortic Valve The aortic valve is not well visualized. There is no aortic valve stenosis. There is trace aortic valve regurgitation. There is mild aortic valve calcification. Pulmonic Valve The pulmonic valve is not well visualized. There is trace pulmonic regurgitation. Mitral Valve There is moderate to severe mitral valve regurgitation. This may be underestimated due to the eccentricity of the jet. Tricuspid Valve There is moderate tricuspid valve regurgitation. Pericardium/Pleural There is no pericardial effusion. Inferior Vena Cava Dilated inferior vena cava with <50% collapse upon inspiration consistent with elevated right atrial pressure, 8 mmHg. Aorta The aortic root size at the sinus of Valsalva is normal. Left Ventricular Outflow Tract Name Value Normal LVOT 2D LVOT Diameter 1.75 cm LVOT Doppler LVOT Peak Gradient 4 mmHg LVOT Mean Gradient 2 mmHg LVOT VTI 24.12 cm LVOT VTI/AV VTI Ratio 0.90 LVOT Stroke Volume 58.22 ml LVOT CO 3.95 l/min LVOT CI 1.55 L/min/m2 Pulmonic Valv
[2024-01-10] VITALS (9 sets, daily range): BP systolic 99–131; BP diastolic 64–72; PULSE 60–91; RESP 14–16; TEMP 36.3–36.8; O2SAT 98–99
[2024-01-10] MEDS: SODIUM CHLORIDE 0.9% IV 1,000 ML 75 ML IV CONT ×2 (04:06→15:59)
[2024-01-10] MEDS: dilTIAZem HCL 60 MG TABLET PO ×4 (04:06→21:27)
[2024-01-10 04:39] LABS: Basophils Absolute Auto 0.1 K/mm3 (0.0-0.1); Basophils Percent Auto 0.7 % (0.2-1.2); Eosinophils Absolute Auto 0.2 K/mm3 (0-0.3); Eosinophils Percent Auto 2.8 % (0-4.4); Hematocrit 37.8 % (37.0-47.0); Hemoglobin 12.2 g/dL (12.0-15.0); Immature Granulocyte Absolute 0.05 K/mm3 (0.00-0.031); Immature Granulocyte Percent A 0.6 % (0-0.5); Lymphocytes Absolute Auto 1.22 K/mm3 (0.9-3.2); Lymphocytes Percent Auto 14.5 % (18.3-44.2); Mean Corpuscular HGB Conc 32.3 g/dl (32-36); Mean Corpuscular Hemoglobin 30.4 pg (26-34); Mean Corpuscular Volume 94.3 fl (80-100); Mean Platelet Volume 9.3 fl (7.4-10.4); Monocytes Percent Auto 11.6 % (2.6-8.5); Neutrophils Absolute Auto 5.9 K/mm3 (1.3-6.7); Neutrophils Percent Auto 69.8 % (45.5-73.1); Platelet Count Result 310 k/mm3 (150-375); Red Blood Count 4.01 M/mm3 (4.2-5.4); Red Cell Distribution Width 14.1 % (11.5-14.5); White Blood Count 8.4 K/mm3 (4.5-10.0)
[2024-01-10 04:45] LABS: Anion Gap 6 mmol/L (8-16); Blood Urea Nitrogen 23 mg/dL (7-17); Calcium 8.6 mg/dL (8.4-10.2); Carbon Dioxide 17 mmol/L (22-30); Chloride 109 mmol/L (98-107); Estimated CRCL calculation 94 ml/min; Estimated Glomerular Filt Rate > 60; Glucose 87 mg/dL (65-110); Potassium 4.4 mmol/L (3.4-5.0); Sodium 132 mmol/L (137-145)
[2024-01-10 04:51] LABS: Vancomycin Trough 12.4 ug/mL (10.0-20.0)
[2024-01-10] MEDS: VANCOMYCIN 1,500 MG/NS 500 ML 1,500 MG/500 ML BAG 250 MG IVPB (05:41)
[2024-01-10] MEDS: ENOXAPARIN 40 MG/0.4 ML SYRINGE SUB-Q (08:07)
[2024-01-10] MEDS: SODIUM BICARBONATE TAB 650 MG TABLET PO ×2 (09:32→15:58)
--- NOTE | 2024-01-10 09:49 | PM.PNCARD ---
Progress Note: A&P Assessment and Plan (1) Atrial fibrillation with rapid ventricular response: Code(s): I48.91 - Unspecified atrial fibrillation Status: Acute Assessment and Plan: Patient has longstanding complicated history with atrial flutter status post caval tricuspid isthmus ablation 2012 with paroxysmal atrial fibrillation subsequently. She was previously seen by electrophysiology many years ago but was lost to follow-up and then was seen again in our office in 2020 with last visit August 2022. Sotalol discontinued Pursuing rate control with Diltiazem - rate generally controlled in the 70's - 80's. Some transient tachycardia with activity. Will shift from short acting to extended release Diltiazem for dosing convenience. [id number] score is 2. With newest guidelines, a/c not necessary in this situation unless she develops another risk factor. (2) Wounds, multiple: Code(s): T07.XXXA - Unspecified multiple injuries, initial encounter Status: Acute Assessment and Plan: As above, continue IV vancomycin and ceftriaxone. Cultures pending. Wound care. Per primary service. (3) Edema of both legs: Code(s): R60.0 - Localized edema Status: Acute Assessment and Plan: Local wound management. Patient is not clinically in decompensated heart failure present. Elevate legs, continue IV antibiotics. (4) Noncompliance w/medication treatment due to intermit use of medication: Code(s): Z91.148 - Patient's other noncompliance with medication regimen for other reason Status: Acute Assessment and Plan: Noncompliance with Xarelto in the past (5) Morbid obesity with BMI of 50.0-59.9, adult: Code(s): E66.01 - Morbid (severe) obesity due to excess calories; Z68.43 - Body mass index [BMI] 50.0-59.9, adult Status: Acute (6) Hypothyroidism: Code(s): E03.9 - Hypothyroidism, unspecified Status: Acute Assessment and Plan: New diagnosis elevated TSH likely subclinical but need to factor in with regards to medical therapy. Defer to primary service for definitive management. Subjective Date/time seen: 01/10/24 09:49 Interval history: Cardiology follow up for atrial fibrillation Feels better today. No palpitations, shortness of breath, or chest pain. Date of service 01/10/2024: Not feeling well today - she is complaining of severe pain in her legs which are now open to air and bleeding from bandage removal, ambulation. She has also been feeling dizzy. Heart rate generally is controlled, but she does have some tachycardia with activity. Review of Systems Review of Systems: Remainder of the review of systems is otherwise negative aside from that noted in the HPI. All systems reviewed & are unremarkable except as noted in HPI and below Constitutional: Constitutional: Reports as per HPI and Reports no additional constitutional complaints Eyes: Eyes: Reports as per HPI and Reports no additional eye complaints ENT: Reports system reviewed and no additional complaints, except as documented and Reports as per HPI Cardiovascular: Cardiovascular: Reports as per HPI and Reports no additional cardiovascular complaints Respiratory: Respiratory: Reports as per HPI and Reports no additional respiratory complaints Gastrointestinal: Gastrointestinal: Reports as per HPI and Reports no additional gastrointestinal complaints Genitourinary: Genitourinary: Reports as per HPI Musculoskeletal: Musculoskeletal: Reports no additional musculoskeletal complaints and Reports as per HPI Integumentary/Breasts: Skin/Breast: Reports system reviewed and no additional complaints, except as docu and Reports as per HPI Neurologic: Reports system reviewed and no additional complaints, except as documented and Reports as per HPI Psychiatric: Psychiatric: Reports no additional psychiatric complaints and Reports as per HPI Endocrine: Endocrine: Reports
--- NOTE | 2024-01-10 12:30 | PHA.ABX.ID ---
Pharmacy ID Consult - Stewardship Interventions Type of Interventions: Other Pharmacy ID Note: Subjective Pharmacy was consulted by Coty Madrid regarding infectious diseases for Pili Forrester. Pili Forrester is a 63 year old F with concerns regarding potential cellulitis and wound infection. Background The patient is currently receiving Ceftriaxone 1g q12h and Vancomycin 1500 mg q18h (pharmacy to dose) (day 4 of antibiotics overall). The patient's PMH includes chronic wounds that are actively weeping. Cultures have been obtained with initial gram stain showing gram-negative rods. Other history per provider notes. No history of previous cultures. Appears no current concern of deeper/bone infection. Microbiology 01/09/24 12:03 Leg Left Wound Culture - Preliminary 01/07/24 14:53 Blood Blood Culture - Preliminary 01/07/24 14:18 Blood Blood Culture - Preliminary Laboratory Tests 01/07/24 01/07/24 01/08/24 13:22 13:22 04:35 WBC 10.1 H Creatinine 1.20 H 1.00 Estim Creat Clear Calc Lactic Acid 1.2 01/09/24 01/10/24 01/10/24 04:31 04:00 04:00 WBC 9.9 8.4 Creatinine 0.70 Estim Creat Clear Calc 94 Lactic Acid Assessment/Recommendation/Discussion Spoke very briefly with provider. Currently, would recommend following culture results to help guide targeted therapy. If any source control for wounds is needed, consider doing so. Duration of therapy should be from most recent source control. With a wound infection with this chronicity with no signs of systemic infection, often times a brief course of antibiotics are recommended - consider a 7-10 day course of targeted therapy after any applicable source control. With no culture history, consider targeted therapy from culture results (will follow for these results). Consider Ceftriaxone 2g q24h IV or a combination of oral therapy if appropriate as more information comes to light. Continue current therapy and consider targeted therapy when more information comes to light. Will continue to follow as appropriate. Please reach out if more information comes to light. Delvis Kidd, PharmD Infectious Disease/Antimicrobial Stewardship Pharmacist 01/10/24; 1230 WBC 8.4 K/mm3 (4.5-10.0) 01/10/24 04:00 Creatinine 0.70 mg/dL (0.7-1.0) 01/10/24 04:00 Estim Creat Clear Calc 94 ml/min 01/10/24 04:00
--- NOTE | 2024-01-10 13:26 | PCPTNOTE ---
Addendum entered by Hannah Brunner, SENIOR [employer] APPLICATION DEVELOPER 01/10/24 13:29: Pt was educated on mobility and increasing circulation will aid in decreasing her overall pain and improve her healing process to inturn leave the hospital sooner. Original Note: Pt refused therapy this afternoon due to open sores on B LE. Pt states she does not like being confined to her room but the alarms will not let her get up. She states she wants to walk around when she is ready and not when someone else is ready to walk her.
--- NOTE | 2024-01-10 13:46 | IVDEFINITY ---
Prior to administration of IV Definity the patient was educated on the risks and benefits of the imaging enhancing agent including potential adverse side effects. The patient verbalized understanding. Allergies were verified. No exclusion criteria were identified and at least one of the following inclusion criteria were met: 1) physician request, 2) patient technically difficult to image (per the [place] [employer] guidelines of two or more segments not discernable within the apical view), or 3) questionable left ventricular function. ?
[2024-01-10] MEDS: HYDROcodone/acetaminophen (*CRX) 5-325 MG TABLET 1 TAB PO (15:58)
[2024-01-10] MEDS: ONDANSETRON INJ 4 MG/2 ML VIAL IV PUSH (15:59)
--- NOTE | 2024-01-10 18:05 | PM.IMPN ---
Progress Note: A&P Assessment and Plan (1) Hypothyroidism: Code(s): E03.9 - Hypothyroidism, unspecified Status: Acute (2) Morbid obesity with BMI of 50.0-59.9, adult: Code(s): E66.01 - Morbid (severe) obesity due to excess calories; Z68.43 - Body mass index [BMI] 50.0-59.9, adult Status: Acute (3) Noncompliance w/medication treatment due to intermit use of medication: Code(s): Z91.148 - Patient's other noncompliance with medication regimen for other reason Status: Acute (4) Edema of both legs: Code(s): R60.0 - Localized edema Status: Acute (5) Wounds, multiple: Code(s): T07.XXXA - Unspecified multiple injuries, initial encounter Status: Acute (6) Renal insufficiency: Code(s): N28.9 - Disorder of kidney and ureter, unspecified Status: Acute (7) Electrolyte abnormality: Code(s): E87.8 - Other disorders of electrolyte and fluid balance, not elsewhere classified Status: Acute (8) Atrial fibrillation with rapid ventricular response: Code(s): I48.91 - Unspecified atrial fibrillation Status: Acute Plan Patient placed under vice president and portfolio manager, advanced to full inpatient status She has multiple issues going on and she admits to be non-compliant with meds at home Continuous cardiac tele-monitoring AFib now under control control with heart rate 70-80 DC IV Cardizem drip, started patient on oral Cardizem as per Cardiology Monitor heart rate and blood pressure closely Full 2-D echo with color-flow and doppler ordered to evaluate cardiac structure and function which showed preserved left ventricular function with EF 50-55% Started on oral sodium bicarb to address borderline low bicarb and sodium levels Patient has bilateral lower leg weeping ulcers without much intervention over the last few weeks Continue with IV antibiotics in the form of IV vancomycin and Rocephin Dressing changes as per wound care ... Recommended dressing changes to Q 8-12 hours as she has consistently weeping wounds Wound cultures ordered from both left and right lower legs which are growing Gram-negative rods with the ID and sensitivities pending Patient may likely require IV antibiotics upon discharge based on sensitivities Strictly advised patient to be compliant with treatment for her medical issues and caring for bilateral lower leg wounds Patient has mild hypothyroidism hence started on low-dose Synthroid, which she refused as she has fluctuating thyroid levels and follows up with Endocrinology Continue with PT/OT Spoke with care coordination regarding arranging intermediate facility transfer for a couple of weeks for rehabilitation and IV antibiotics ? Patient seen and examined at bedside during my morning rounds ? Collaborated with patient's nurse at the bedside in detail and addressed all concerns ? Labs, electrolytes, radiology, investigations and test results reviewed ? Consult/Nursing/Ancilliary notes on the chart reviewed and appreciated ? Spoke with patient/family at the bedside and answered all the questions that they had Repeat labs in a.m. Electrolyte replacement as per protocol. Patient will be monitored very closely on the floor. Further recommendations as per the hospital course. Personal history of noncompliance with medical treatment and regimen: STRICTLY advised patient to be compliant with meds and medical recommendations. Advised patient to get established with a PCP upon discharge, take care of meds, diet and bring patient's life back on track. Time Spent With Patient Time with patient: 15 - 25 minutes Subjective Date/time seen: 01/10/24 18:05 Interval history: Patient sitting in chair during my morning rounds. She is having dressing changes more frequently. Ordered oral bicarbonate for borderline low bicarb and sodium levels. Spoke with care coordination and ID hospitalist for discharge planning possibly on IV antibiotics. Review of Systems Review
[2024-01-10] MEDS: VANCOMYCIN 1,500 MG/NS 500 ML 1,500 MG/500 ML BAG 200 MG IVPB (23:32)
[2024-01-11] VITALS (9 sets, daily range): BP systolic 100–110; BP diastolic 54–62; PULSE 70–88; RESP 14–16; TEMP 36.3–36.4; O2SAT 98–100
[2024-01-11] MEDS: SODIUM CHLORIDE 0.9% IV 1,000 ML 75 ML IV CONT (06:52)
[2024-01-11 07:00] LABS: Basophils Absolute Auto 0.1 K/mm3 (0.0-0.1); Basophils Percent Auto 0.9 % (0.2-1.2); Eosinophils Absolute Auto 0.3 K/mm3 (0-0.3); Hematocrit 40.6 % (37.0-47.0); Immature Granulocyte Absolute 0.05 K/mm3 (0.00-0.031); Immature Granulocyte Percent A 0.6 % (0-0.5); Lymphocytes Absolute Auto 1.31 K/mm3 (0.9-3.2); Lymphocytes Percent Auto 16.5 % (18.3-44.2); Mean Corpuscular Hemoglobin 30.5 pg (26-34); Mean Corpuscular Volume 95.3 fl (80-100); Mean Platelet Volume 9.4 fl (7.4-10.4); Monocytes Absolute Auto 0.8 K/mm3 (0.1-0.6); Monocytes Percent Auto 10.6 % (2.6-8.5); Neutrophils Absolute Auto 5.4 K/mm3 (1.3-6.7); Neutrophils Percent Auto 67.4 % (45.5-73.1); Platelet Count Result 352 k/mm3 (150-375); Red Blood Count 4.26 M/mm3 (4.2-5.4); Red Cell Distribution Width 14.1 % (11.5-14.5)
[2024-01-11 07:04] LABS: Anion Gap 5 mmol/L (8-16); Blood Urea Nitrogen 21 mg/dL (7-17); Calcium 8.9 mg/dL (8.4-10.2); Carbon Dioxide 19 mmol/L (22-30); Chloride 109 mmol/L (98-107); Estimated CRCL calculation 96 ml/min; Estimated Glomerular Filt Rate > 60; Glucose 87 mg/dL (65-110); Potassium 4.2 mmol/L (3.4-5.0); Sodium 133 mmol/L (137-145)
[2024-01-11] MEDS: SODIUM BICARBONATE TAB 650 MG TABLET PO ×2 (09:43→16:59)
[2024-01-11] MEDS: dilTIAZem HCL CD 240 MG CAP.24HR PO (09:43)
[2024-01-11] MEDS: ENOXAPARIN 40 MG/0.4 ML SYRINGE SUB-Q (09:44)
[2024-01-11] MEDS: ACETAMINOPHEN 325 MG TABLET 650 MG PO (10:20)
--- NOTE | 2024-01-11 11:12 | PM.PNCARD ---
Progress Note: A&P Assessment and Plan (1) Atrial fibrillation with rapid ventricular response: Code(s): I48.91 - Unspecified atrial fibrillation Status: Acute Plan 63-year-old lady with: Chronic atrial fibrillation with adequate rate control with anticoagulation. The patient had been not seen in my office for follow-up of this for about a year and a half as she has failed appointments and did not call to reschedule. She is now on diltiazem for rate control and for the most part is doing well. She had a for prior previous prescription for sotalol which has been discontinued as she will no longer be in sinus rhythm and the last time I saw her in August of 2022 any to declined any option at attempting to restore sinus rhythm at that time. For that reason obviously rhythm control is no longer an option for her. We will continue heard diltiazem treatment and follow with you while she is in the hospital. Nik Pfeiffer MD [facility] Subjective Date/time seen: Date of service: 01/11/24 11:12 Interval history: Cardiology follow up for atrial fibrillation Feels better today. No palpitations, shortness of breath, or chest pain. Date of service 01/10/2024: Not feeling well today - she is complaining of severe pain in her legs which are now open to air and bleeding from bandage removal, ambulation. She has also been feeling dizzy. Heart rate generally is controlled, but she does have some tachycardia with activity. Date of service 01/11/2024: No cardiovascular complaints at this time. Patient continues to be hospitalized receiving wound treatment and antibiotics for lower extremity ulcers/wounds. Atrial fibrillation appears to be largely well rate controlled with diltiazem. Exam Narrative: General: Morbidly obese female sitting upright in chair, well developed, alert and oriented x3. No apparent distress, comfortable, pleasant, and cooperative. Head: atraumatic, normocephalic Eyes: EOM intact, sclerae anicteric, conjunctivae unremarkable Ears/Nose: external inspection of ears and nose were grossly normal Mouth/Throat: oral mucosa pink and moist Neck: supple, normal range of motion, no jugular venous distention or carotid bruits, thyroid nonpalpable, trachea midline. Cardiac: Irregularly irregular, tachycardic rate and rhythm, normal S1-S2, soft systolic murmur Lungs: Diminished breath sounds diffusely, no rales, wheezes, or rhonchi. Abdomen: Morbidly obese, soft, nontender, nondistended, positive bowel sounds throughout. No appreciable hepatosplenomegaly, rebound guarding or rigidity noted. Abdominal aorta nonpalpable, no appreciable bruits. Extremities: One to 2+ bilateral equal pitting lower extremity edema, no clubbing, or cyanosis. Extremities warm and well perfused. Skin: Warm erythema bilateral lower extremities, open wounds serous drainage Musculoskeletal: Muscle strength and tone intact throughout without obvious deformities. Vascular: Carotid upstrokes 2+ bilaterally, radial pulses 2+ bilaterally, dorsalis pedis pulses 1+ bilaterally Neurologic: Cranial nerves 2-12 grossly intact, examination grossly nonfocal Psychiatric: Mood calm and appropriate. Const: General: comfortable, no acute distress, alert and awake Orientation/consciousness: patient oriented x3 HENMT: Head: normal to inspection Eyes: General: appearance normal, both eyes and all related structures Pupils: Equal, round and reactive pupils present Neck: Neck: normal visual inspection, supple and no JVD Carotids: normal carotid upstroke Resp: Effort & Inspection: normal respiratory effort Auscultation: clear to auscultation bilaterally Cardio: Rate: regular rate Rhythm: abnormal rhythm irregularly irregular Heart sounds: S1 normal heart sound present, S2 normal heart sound present and Murmur heart sound present systolic GI: Auscultation: normal bowel sounds Skin: G
--- NOTE | 2024-01-11 15:32 | PCPTNOTE ---
Patient declined therapy this date stating she wants to rest up for her dressing change. Patient agreed to therapy in morning.
--- NOTE | 2024-01-11 16:38 | PM.IMPN ---
Progress Note: A&P Assessment and Plan (1) Hypothyroidism: Code(s): E03.9 - Hypothyroidism, unspecified Status: Acute (2) Morbid obesity with BMI of 50.0-59.9, adult: Code(s): E66.01 - Morbid (severe) obesity due to excess calories; Z68.43 - Body mass index [BMI] 50.0-59.9, adult Status: Acute (3) Noncompliance w/medication treatment due to intermit use of medication: Code(s): Z91.148 - Patient's other noncompliance with medication regimen for other reason Status: Acute (4) Edema of both legs: Code(s): R60.0 - Localized edema Status: Acute (5) Wounds, multiple: Code(s): T07.XXXA - Unspecified multiple injuries, initial encounter Status: Acute (6) Renal insufficiency: Code(s): N28.9 - Disorder of kidney and ureter, unspecified Status: Acute (7) Electrolyte abnormality: Code(s): E87.8 - Other disorders of electrolyte and fluid balance, not elsewhere classified Status: Acute (8) Atrial fibrillation with rapid ventricular response: Code(s): I48.91 - Unspecified atrial fibrillation Status: Acute Plan Patient placed under public affairs manager, advanced to full inpatient status She has multiple issues going on and she admits to be non-compliant with meds at home Continuous cardiac tele-monitoring AFib now under control control with heart rate 70-80 DC IV Cardizem drip, started patient on oral Cardizem as per Cardiology Monitor heart rate and blood pressure closely Adjust oral Cardizem dosing as per Cardiology to maintain SBP above 100 Full 2-D echo with color-flow and doppler ordered to evaluate cardiac structure and function which showed preserved left ventricular function with EF 50-55% Started on oral sodium bicarb to address borderline low bicarb and sodium levels Patient has bilateral lower leg weeping ulcers without much intervention over the last few weeks Continue with IV antibiotics in the form of IV vancomycin and Rocephin Dressing changes as per wound care ... Recommended dressing changes to Q 8-12 hours as she has consistently weeping wounds Wound cultures ordered from both left and right lower legs which are growing Gram-negative rods with the ID and sensitivities pending Patient may likely require IV antibiotics upon discharge based on sensitivities Strictly advised patient to be compliant with treatment for her medical issues and caring for bilateral lower leg wounds Patient has mild hypothyroidism hence recommended her to start low-dose Synthroid, which she refused as she has fluctuating thyroid levels and follows up with Endocrinology Continue with PT/OT Spoke with care coordination regarding arranging [facility] facility transfer for a couple of weeks for rehabilitation and IV antibiotics ? Patient seen and examined at bedside during my morning rounds ? Collaborated with patient's nurse at the bedside in detail and addressed all concerns ? Labs, electrolytes, radiology, investigations and test results reviewed ? Consult/Nursing/Ancilliary notes on the chart reviewed and appreciated ? Spoke with patient/family at the bedside and answered all the questions that they had Repeat labs in a.m. Electrolyte replacement as per protocol. Patient will be monitored very closely on the floor. Further recommendations as per the hospital course. Personal history of noncompliance with medical treatment and regimen: STRICTLY advised patient to be compliant with meds and medical recommendations. Advised patient to get established with a PCP upon discharge, take care of meds, diet and bring patient's life back on track. Time Spent With Patient Time with patient: 15 - 25 minutes Subjective Date/time seen: 01/11/24 16:38 Interval history: Patient feels tired and fatigued with low blood pressures caused by Cardizem. She feels that her leg ulcers are slowly improving Review of Systems Review of Systems: 14 systems were reviewed with pertinent
[2024-01-11] MEDS: VANCOMYCIN 1,500 MG/NS 500 ML 1,500 MG/500 ML BAG 200 MG IVPB (16:59)
[2024-01-11] MEDS: MORPHINE SULFATE (*CRX) 4 MG/ML INJ IV PUSH (17:05)
[2024-01-11] MEDS: ONDANSETRON INJ 4 MG/2 ML VIAL IV PUSH (17:05)
[2024-01-12] VITALS (9 sets, daily range): BP systolic 103–120; BP diastolic 66–87; PULSE 74–108; RESP 14–24; TEMP 36.8–36.9; O2SAT 97–100
--- NOTE | 2024-01-12 01:05 | PC.NURSE ---
2100 Ceftriaxone administered late due to longer administration of Vanc administration. Pt IV is positional, it was ultrasound place. Pt will need new IV site for longer IV use; especially vancomycin. Continued monitoring.
[2024-01-12] MEDS: SODIUM CHLORIDE 0.9% IV 1,000 ML 75 ML IV CONT (01:09)
[2024-01-12 06:33] LABS: Basophils Absolute Auto 0.1 K/mm3 (0.0-0.1); Eosinophils Absolute Auto 0.3 K/mm3 (0-0.3); Eosinophils Percent Auto 4.7 % (0-4.4); Hematocrit 41.8 % (37.0-47.0); Hemoglobin 13.6 g/dL (12.0-15.0); Immature Granulocyte Absolute 0.07 K/mm3 (0.00-0.031); Lymphocytes Absolute Auto 1.22 K/mm3 (0.9-3.2); Lymphocytes Percent Auto 16.7 % (18.3-44.2); Mean Corpuscular HGB Conc 32.5 g/dl (32-36); Mean Corpuscular Hemoglobin 30.5 pg (26-34); Mean Corpuscular Volume 93.7 fl (80-100); Mean Platelet Volume 9.1 fl (7.4-10.4); Monocytes Absolute Auto 0.7 K/mm3 (0.1-0.6); Monocytes Percent Auto 9.8 % (2.6-8.5); Neutrophils Absolute Auto 4.9 K/mm3 (1.3-6.7); Neutrophils Percent Auto 66.8 % (45.5-73.1); Platelet Count Result 352 k/mm3 (150-375); Red Blood Count 4.46 M/mm3 (4.2-5.4); Red Cell Distribution Width 14.3 % (11.5-14.5); White Blood Count 7.3 K/mm3 (4.5-10.0)
[2024-01-12] MEDS: dilTIAZem HCL CD 240 MG CAP.24HR PO (09:20)
[2024-01-12] MEDS: SODIUM BICARBONATE TAB 650 MG TABLET PO ×2 (09:22→19:09)
[2024-01-12] MEDS: ENOXAPARIN 40 MG/0.4 ML SYRINGE SUB-Q (09:22)
[2024-01-12] MEDS: ACETAMINOPHEN 325 MG TABLET 650 MG PO (09:28)
[2024-01-12 10:13] LABS: Anion Gap 4 mmol/L (8-16); Blood Urea Nitrogen 17 mg/dL (7-17); Carbon Dioxide 23 mmol/L (22-30); Chloride 107 mmol/L (98-107); Estimated CRCL calculation 96 ml/min; Estimated Glomerular Filt Rate > 60; Glucose 116 mg/dL (65-110); Potassium 4.2 mmol/L (3.4-5.0); Sodium 134 mmol/L (137-145)
[2024-01-12 10:24] LABS: Vancomycin Trough 15.7 ug/mL (10.0-20.0)
--- NOTE | 2024-01-12 15:54 | PM.IMPN ---
Progress Note: A&P Assessment and Plan (1) Hypothyroidism: Code(s): E03.9 - Hypothyroidism, unspecified Status: Acute (2) Morbid obesity with BMI of 50.0-59.9, adult: Code(s): E66.01 - Morbid (severe) obesity due to excess calories; Z68.43 - Body mass index [BMI] 50.0-59.9, adult Status: Acute (3) Noncompliance w/medication treatment due to intermit use of medication: Code(s): Z91.148 - Patient's other noncompliance with medication regimen for other reason Status: Acute (4) Edema of both legs: Code(s): R60.0 - Localized edema Status: Acute (5) Wounds, multiple: Code(s): T07.XXXA - Unspecified multiple injuries, initial encounter Status: Acute (6) Renal insufficiency: Code(s): N28.9 - Disorder of kidney and ureter, unspecified Status: Acute (7) Electrolyte abnormality: Code(s): E87.8 - Other disorders of electrolyte and fluid balance, not elsewhere classified Status: Acute (8) Atrial fibrillation with rapid ventricular response: Code(s): I48.91 - Unspecified atrial fibrillation Status: Acute Plan Patient placed under house repairer, advanced to full inpatient status She has multiple issues going on and she admits to be non-compliant with meds at home Continuous cardiac tele-monitoring AFib now under control control with heart rate 70-80 DC IV Cardizem drip, started patient on oral Cardizem as per Cardiology Monitor heart rate and blood pressure closely Adjust oral Cardizem dosing as per Cardiology to maintain SBP above 100 Full 2-D echo with color-flow and doppler ordered to evaluate cardiac structure and function which showed preserved left ventricular function with EF 50-55% Started on oral sodium bicarb to address borderline low bicarb and sodium levels Sodium and bicarbonate levels are slowly improving Patient has bilateral lower leg weeping ulcers without much intervention over the last few weeks Continue with IV antibiotics in the form of IV vancomycin and Rocephin Dressing changes as per wound care ... Recommended dressing changes to Q 8-12 hours as she has consistently weeping wounds Wound cultures ordered from both left and right lower legs which are growing skin geri Repeat wound cultures ordered from both legs Patient may likely require IV antibiotics upon discharge based on sensitivities PICC line ordered for better IV access Strictly advised patient to be compliant with treatment for her medical issues and caring for bilateral lower leg wounds Patient has mild hypothyroidism hence recommended her to start low-dose Synthroid, which she refused as she has fluctuating thyroid levels and follows up with Endocrinology Continue with PT/OT Spoke with care coordination regarding arranging retirement facility transfer for a couple of weeks for rehabilitation and IV antibiotics ? Patient seen and examined at bedside during my morning rounds ? Collaborated with patient's nurse at the bedside in detail and addressed all concerns ? Labs, electrolytes, radiology, investigations and test results reviewed ? Consult/Nursing/Ancilliary notes on the chart reviewed and appreciated ? Spoke with patient/family at the bedside and answered all the questions that they had Repeat labs in a.m. Electrolyte replacement as per protocol. Patient will be monitored very closely on the floor. Further recommendations as per the hospital course. Personal history of noncompliance with medical treatment and regimen: STRICTLY advised patient to be compliant with meds and medical recommendations. Advised patient to get established with a PCP upon discharge, take care of meds, diet and bring patient's life back on track. Time Spent With Patient Time with patient: 15 - 25 minutes Subjective Date/time seen: 01/12/24 15:54 Interval history: Patient seen and evaluated at bedside. Blood pressures are under better control. No major issues Review of Systems Re
[2024-01-12] MEDS: VANCOMYCIN 1,750 MG/NS 500 ML 1,750 MG/500 ML BAG 250 MG IVPB (19:00)
[2024-01-12] MEDS: HYDROcodone/acetaminophen (*CRX) 5-325 MG TABLET 1 TAB PO (19:07)
[2024-01-12] MEDS: SALINE LOCK FLUSH 10 ML IV PUSH (20:30)
[2024-01-13] VITALS (9 sets, daily range): BP systolic 101–116; BP diastolic 66–78; PULSE 70–91; RESP 16–18; TEMP 36.2–36.6; O2SAT 97–100
[2024-01-13] MEDS: SODIUM CHLORIDE 0.9% IV 1,000 ML 75 ML IV CONT ×2 (05:18→22:40)
--- NOTE | 2024-01-13 05:25 | PC.NURSE ---
Patient refuses dressing change this morning. Explained to patient that the orders are for her to get the dressings changed every 8 hours. Patient says that she wants to wait until 10 am and wants the dressings removed so her legs can air dry and it works better that way.
[2024-01-13] MEDS: SALINE LOCK FLUSH 10 ML IV PUSH ×2 (05:27→14:05)
[2024-01-13 06:48] LABS: Basophils Absolute Auto 0.1 K/mm3 (0.0-0.1); Basophils Percent Auto 1.5 % (0.2-1.2); Eosinophils Absolute Auto 0.3 K/mm3 (0-0.3); Eosinophils Percent Auto 4.3 % (0-4.4); Hematocrit 42.1 % (37.0-47.0); Hemoglobin 13.3 g/dL (12.0-15.0); Immature Granulocyte Absolute 0.05 K/mm3 (0.00-0.031); Immature Granulocyte Percent A 0.7 % (0-0.5); Lymphocytes Absolute Auto 1.03 K/mm3 (0.9-3.2); Lymphocytes Percent Auto 15.3 % (18.3-44.2); Mean Corpuscular HGB Conc 31.6 g/dl (32-36); Mean Corpuscular Hemoglobin 30.7 pg (26-34); Mean Corpuscular Volume 97.2 fl (80-100); Mean Platelet Volume 9.1 fl (7.4-10.4); Monocytes Absolute Auto 0.7 K/mm3 (0.1-0.6); Monocytes Percent Auto 10.7 % (2.6-8.5); Neutrophils Absolute Auto 4.5 K/mm3 (1.3-6.7); Neutrophils Percent Auto 67.5 % (45.5-73.1); Platelet Count Result 332 k/mm3 (150-375); Red Blood Count 4.33 M/mm3 (4.2-5.4); White Blood Count 6.7 K/mm3 (4.5-10.0)
[2024-01-13] MEDS: dilTIAZem HCL CD 240 MG CAP.24HR PO (09:03)
[2024-01-13] MEDS: SODIUM BICARBONATE TAB 650 MG TABLET PO ×2 (09:03→17:43)
[2024-01-13 09:04] LABS: Anion Gap 8 mmol/L (8-16); Blood Urea Nitrogen 17 mg/dL (7-17); Calcium 9.4 mg/dL (8.4-10.2); Carbon Dioxide 19 mmol/L (22-30); Chloride 108 mmol/L (98-107); Estimated CRCL calculation 96 ml/min; Estimated Glomerular Filt Rate > 60; Glucose 101 mg/dL (65-110); Potassium 4.9 mmol/L (3.4-5.0); Sodium 135 mmol/L (137-145)
[2024-01-13] MEDS: ENOXAPARIN 40 MG/0.4 ML SYRINGE SUB-Q (09:08)
[2024-01-13] MEDS: MORPHINE SULFATE (*CRX) 4 MG/ML INJ IV PUSH (14:18)
[2024-01-13] MEDS: ONDANSETRON INJ 4 MG/2 ML VIAL IV PUSH (14:19)
[2024-01-13] MEDS: ACETAMINOPHEN 325 MG TABLET 650 MG PO (15:02)
--- NOTE | 2024-01-13 17:11 | PM.IMPN ---
Progress Note: A&P Assessment and Plan (1) Hypothyroidism: Code(s): E03.9 - Hypothyroidism, unspecified Status: Acute (2) Morbid obesity with BMI of 50.0-59.9, adult: Code(s): E66.01 - Morbid (severe) obesity due to excess calories; Z68.43 - Body mass index [BMI] 50.0-59.9, adult Status: Acute (3) Noncompliance w/medication treatment due to intermit use of medication: Code(s): Z91.148 - Patient's other noncompliance with medication regimen for other reason Status: Acute (4) Edema of both legs: Code(s): R60.0 - Localized edema Status: Acute (5) Wounds, multiple: Code(s): T07.XXXA - Unspecified multiple injuries, initial encounter Status: Acute (6) Renal insufficiency: Code(s): N28.9 - Disorder of kidney and ureter, unspecified Status: Acute (7) Electrolyte abnormality: Code(s): E87.8 - Other disorders of electrolyte and fluid balance, not elsewhere classified Status: Acute (8) Atrial fibrillation with rapid ventricular response: Code(s): I48.91 - Unspecified atrial fibrillation Status: Acute Plan Advanced patient to full inpatient status She has multiple issues going on and she admits to be non-compliant with meds at home AFib now under control control with heart rate 70-80 DC IV Cardizem drip, started patient on oral Cardizem as per Cardiology DC Cardiopulmonary manager pmo heart rate and blood pressure closely Adjust oral Cardizem dosing as per Cardiology to maintain SBP above 100 Full 2-D echo with color-flow and doppler ordered to evaluate cardiac structure and function which showed preserved left ventricular function with EF 50-55% Started on oral sodium bicarb to address borderline low bicarb and sodium levels Sodium and bicarbonate levels are slowly improving Patient has bilateral lower leg weeping ulcers without much intervention over the last few weeks Continue with IV antibiotics in the form of IV vancomycin and Rocephin ... Day 7 for both Dressing changes as per wound care ... Recommended dressing changes to Q 8-12 hours as she has consistently weeping wounds 01/08/2024: Wound cultures ordered from both left and right lower legs which are growing skin geri 01/12/2024: Repeat wound cultures ordered from both legs which are being followed Midline ordered for better IV access Patient may require IV antibiotics for 14 days ending 01/20/2024 if she has positive wound cultures Strictly advised patient to be compliant with treatment for her medical issues and caring for bilateral lower leg wounds Patient has mild hypothyroidism hence recommended her to start low-dose Synthroid, which she refused as she has fluctuating thyroid levels and follows up with Endocrinology Continue with PT/OT Spoke with care coordination regarding arranging retirement facility transfer for a couple of weeks for rehabilitation and IV antibiotics ? Patient seen and examined at bedside during my morning rounds ? Collaborated with patient's nurse at the bedside in detail and addressed all concerns ? Labs, electrolytes, radiology, investigations and test results reviewed ? Consult/Nursing/Ancilliary notes on the chart reviewed and appreciated ? Spoke with patient/family at the bedside and answered all the questions that they had Repeat labs in a.m. Electrolyte replacement as per protocol. Patient will be monitored very closely on the floor. Further recommendations as per the hospital course. I am signing off. Patient's medical care will be taken over by my covering hospitalist attending in am. Personal history of noncompliance with medical treatment and regimen: STRICTLY advised patient to be compliant with meds and medical recommendations. Advised patient to get established with a PCP upon discharge, take care of meds, diet and bring patient's life back on track. Time Spent With Patient Time with patient: 15 - 25 minutes Subjective Date/time seen:
[2024-01-13] MEDS: VANCOMYCIN 1,750 MG/NS 500 ML 1,750 MG/500 ML BAG 250 MG IVPB (20:23)
[2024-01-14] VITALS (9 sets, daily range): BP systolic 110–119; BP diastolic 62–82; PULSE 74–113; RESP 18–19; TEMP 36.1–36.5; O2SAT 93–98
[2024-01-14] MEDS: HYDROcodone/acetaminophen (*CRX) 5-325 MG TABLET 1 TAB PO ×2 (06:58→16:12)
[2024-01-14 08:02] LABS: Basophils Absolute Auto 0.1 K/mm3 (0.0-0.1); Basophils Percent Auto 1.2 % (0.2-1.2); Eosinophils Absolute Auto 0.3 K/mm3 (0-0.3); Eosinophils Percent Auto 4.7 % (0-4.4); Hematocrit 41.5 % (37.0-47.0); Hemoglobin 13.5 g/dL (12.0-15.0); Immature Granulocyte Absolute 0.02 K/mm3 (0.00-0.031); Immature Granulocyte Percent A 0.3 % (0-0.5); Lymphocytes Absolute Auto 0.92 K/mm3 (0.9-3.2); Lymphocytes Percent Auto 13.9 % (18.3-44.2); Mean Corpuscular HGB Conc 32.5 g/dl (32-36); Mean Corpuscular Hemoglobin 30.9 pg (26-34); Mean Platelet Volume 8.8 fl (7.4-10.4); Monocytes Absolute Auto 0.7 K/mm3 (0.1-0.6); Neutrophils Absolute Auto 4.6 K/mm3 (1.3-6.7); Neutrophils Percent Auto 69.9 % (45.5-73.1); Platelet Count Result 357 k/mm3 (150-375); Red Blood Count 4.37 M/mm3 (4.2-5.4); Red Cell Distribution Width 14.1 % (11.5-14.5); White Blood Count 6.6 K/mm3 (4.5-10.0)
[2024-01-14 08:14] LABS: Anion Gap 6 mmol/L (8-16); Blood Urea Nitrogen 17 mg/dL (7-17); Carbon Dioxide 22 mmol/L (22-30); Chloride 108 mmol/L (98-107); Estimated CRCL calculation 85 ml/min; Estimated Glomerular Filt Rate > 60; Glucose 95 mg/dL (65-110); Potassium 3.9 mmol/L (3.4-5.0); Sodium 136 mmol/L (137-145)
[2024-01-14] MEDS: ENOXAPARIN 40 MG/0.4 ML SYRINGE SUB-Q (09:00)
[2024-01-14] MEDS: dilTIAZem HCL CD 240 MG CAP.24HR PO (09:00)
[2024-01-14] MEDS: FUROSEMIDE INJ 40 MG/4 ML VIAL 20 MG IV PUSH (09:01)
[2024-01-14] MEDS: SODIUM BICARBONATE TAB 650 MG TABLET PO ×2 (09:01→17:11)
--- NOTE | 2024-01-14 13:00 | PM.IMPN ---
Progress Note: A&P Assessment and Plan (1) Hypothyroidism: Code(s): E03.9 - Hypothyroidism, unspecified Status: Acute (2) Morbid obesity with BMI of 50.0-59.9, adult: Code(s): E66.01 - Morbid (severe) obesity due to excess calories; Z68.43 - Body mass index [BMI] 50.0-59.9, adult Status: Acute (3) Noncompliance w/medication treatment due to intermit use of medication: Code(s): Z91.148 - Patient's other noncompliance with medication regimen for other reason Status: Acute (4) Edema of both legs: Code(s): R60.0 - Localized edema Status: Acute (5) Wounds, multiple: Code(s): T07.XXXA - Unspecified multiple injuries, initial encounter Status: Acute (6) Renal insufficiency: Code(s): N28.9 - Disorder of kidney and ureter, unspecified Status: Acute (7) Electrolyte abnormality: Code(s): E87.8 - Other disorders of electrolyte and fluid balance, not elsewhere classified Status: Acute (8) Atrial fibrillation with rapid ventricular response: Code(s): I48.91 - Unspecified atrial fibrillation Status: Acute Plan ?63-year-old female with paroxysmal atrial fibrillation and cervical cancer in 2011 who presented to the emergency department via private vehicle from home for evaluation of lower extremity wounds.? In ER she was noted to be in AFib with RVR. , was started on Cardizem drip. Will. 1. AFib with RVR: Appreciate Cardiology help AFib now in a controlled Currently on oral Cardizem 2D echo with color Doppler showed preserved left ventricular function with EF of 50-55% Noncompliant with outpatient follow-up with Cardiology 2. Bilateral lower extremity wounds with possible cellulitis: Wound cultures have been growing skin geri Local wound care Discontinue IV fluids Will give a dose of IV Lasix Continue with vancomycin and ceftriaxone, will continue antibiotics for total 14 days, last day would be 01/20/2024 3. DVT prophylaxis: Lovenox 4. Code status: Full 5. Disposition: Anticipate discharge in next 24-48 hours, can switch to oral antibiotics upon discharge Time Spent With Patient Time with patient: 15 - 25 minutes Subjective Date/time seen: 01/14/24 13:00 Interval history: Complains of chili room, has several warm blankets on herself sent Review of Systems Review of Systems: 14 systems were reviewed with pertinent positives and negatives per HPI. Except as documented in the HPI/progress notes, all other systems were reviewed and are negative. Exam Narrative: General physical exam: Super morbidly obese female, sitting on chair at bedside, complains of being tired and fatigued Head/eyes: Atraumatic, EOMI, PERRLA ENT: Moist mucous membranes, nasal passages clear Neck: Supple, full range of motion, trachea midline CVS: S1 + S2, irregularly irregular rate and rhythm Respiratory: Bilaterally decreased air entry in both lung hurt, mild B/L crackles, symmetric chest expansion, no distress Abdomen: Soft, non-tender, bowel sounds +ve, no organomegaly Extremities: No clubbing, no cyanosis, ++++ bilateral lower leg edema, no calf tenderness Musculoskeletal: Moves all, decreased range of motion, no muscle spasms Skin: Warm, dry, no jaundice, no cyanosis, +++ erythema/scab/weeping wounds bilateral lower legs Neurological: Awake, alert, oriented x 3, cranial nerves II-XII intact, no focal neurological deficits Psychiatric: Normal mood, non suicidal Objective Data Vital Signs Vital Signs: Vital Signs - 24 hr 01/13/24 14:00 01/13/24 16:00 01/13/24 21:23 Temperature 97.4 F L 97.8 F Pulse Rate 84 90 76 Respiratory Rate 18 18 Blood Pressure 101/78 116/75 Pulse Oximetry 97 99 Oxygen Delivery 01/13/24 20:00 01/14/24 00:00 01/14/24 04:00 Temperature Pulse Rate 70 113 H 74 Respiratory Rate Blood Pressure Pulse Oximetry Oxygen Delivery 01/14/24 05:56 01/14/24 08:00 01/14/24 08
[2024-01-14] MEDS: SALINE LOCK FLUSH 10 ML IV PUSH ×2 (13:47→20:33)
[2024-01-14] MEDS: VANCOMYCIN 1,750 MG/NS 500 ML 1,750 MG/500 ML BAG 250 MG IVPB (18:23)
[2024-01-15] VITALS (9 sets, daily range): BP systolic 104–111; BP diastolic 70–78; PULSE 86–100; RESP 18–20; TEMP 36.2–36.4; O2SAT 95–100
[2024-01-15] MEDS: MORPHINE SULFATE (*CRX) 4 MG/ML INJ IV PUSH (02:17)
[2024-01-15] MEDS: ONDANSETRON INJ 4 MG/2 ML VIAL IV PUSH (02:18)
[2024-01-15] MEDS: ACETAMINOPHEN 325 MG TABLET 650 MG PO (02:53)
[2024-01-15 07:16] LABS: Basophils Absolute Auto 0.1 K/mm3 (0.0-0.1); Basophils Percent Auto 1.4 % (0.2-1.2); Eosinophils Absolute Auto 0.3 K/mm3 (0-0.3); Eosinophils Percent Auto 4.5 % (0-4.4); Hematocrit 42.6 % (37.0-47.0); Hemoglobin 13.8 g/dL (12.0-15.0); Immature Granulocyte Absolute 0.03 K/mm3 (0.00-0.031); Immature Granulocyte Percent A 0.4 % (0-0.5); Lymphocytes Absolute Auto 1.05 K/mm3 (0.9-3.2); Lymphocytes Percent Auto 14.5 % (18.3-44.2); Mean Corpuscular HGB Conc 32.4 g/dl (32-36); Mean Corpuscular Hemoglobin 30.5 pg (26-34); Mean Corpuscular Volume 94.2 fl (80-100); Mean Platelet Volume 8.8 fl (7.4-10.4); Monocytes Absolute Auto 0.7 K/mm3 (0.1-0.6); Monocytes Percent Auto 9.8 % (2.6-8.5); Neutrophils Percent Auto 69.4 % (45.5-73.1); Platelet Count Result 354 k/mm3 (150-375); Red Blood Count 4.52 M/mm3 (4.2-5.4); Red Cell Distribution Width 14.2 % (11.5-14.5); White Blood Count 7.3 K/mm3 (4.5-10.0)
[2024-01-15 07:43] LABS: Anion Gap 7 mmol/L (8-16); Blood Urea Nitrogen 21 mg/dL (7-17); Calcium 9.2 mg/dL (8.4-10.2); Carbon Dioxide 21 mmol/L (22-30); Chloride 108 mmol/L (98-107); Estimated CRCL calculation 85 ml/min; Estimated Glomerular Filt Rate > 60; Glucose 103 mg/dL (65-110); Potassium 3.9 mmol/L (3.4-5.0); Sodium 136 mmol/L (137-145)
--- NOTE | 2024-01-15 08:47 | PCNWS ---
Weekly nutritional screen. Patient is tolerating current diet with adequate intake. No weight loss reported. No nutritional needs at this time.
[2024-01-15] MEDS: FUROSEMIDE INJ 40 MG/4 ML VIAL 20 MG IV PUSH (09:05)
[2024-01-15] MEDS: SODIUM BICARBONATE TAB 650 MG TABLET PO ×2 (09:05→16:20)
[2024-01-15] MEDS: dilTIAZem HCL CD 240 MG CAP.24HR PO (09:05)
[2024-01-15] MEDS: ENOXAPARIN 40 MG/0.4 ML SYRINGE SUB-Q (09:06)
--- NOTE | 2024-01-15 12:17 | PM.IMPN ---
Progress Note: A&P Assessment and Plan (1) Hypothyroidism: Code(s): E03.9 - Hypothyroidism, unspecified Status: Acute (2) Morbid obesity with BMI of 50.0-59.9, adult: Code(s): E66.01 - Morbid (severe) obesity due to excess calories; Z68.43 - Body mass index [BMI] 50.0-59.9, adult Status: Acute (3) Noncompliance w/medication treatment due to intermit use of medication: Code(s): Z91.148 - Patient's other noncompliance with medication regimen for other reason Status: Acute (4) Edema of both legs: Code(s): R60.0 - Localized edema Status: Acute (5) Wounds, multiple: Code(s): T07.XXXA - Unspecified multiple injuries, initial encounter Status: Acute (6) Renal insufficiency: Code(s): N28.9 - Disorder of kidney and ureter, unspecified Status: Acute (7) Electrolyte abnormality: Code(s): E87.8 - Other disorders of electrolyte and fluid balance, not elsewhere classified Status: Acute (8) Atrial fibrillation with rapid ventricular response: Code(s): I48.91 - Unspecified atrial fibrillation Status: Acute Plan ?63-year-old female with paroxysmal atrial fibrillation and cervical cancer in 2011 who presented to the emergency department via private vehicle from home for evaluation of lower extremity wounds.? In ER she was noted to be in AFib with RVR. , was started on Cardizem drip. Will. 1. AFib with RVR: Appreciate Cardiology help AFib now in a controlled Currently on oral Cardizem 2D echo with color Doppler showed preserved left ventricular function with EF of 50-55% Noncompliant with outpatient follow-up with Cardiology 2. Bilateral lower extremity wounds with possible cellulitis: Wound cultures have been growing skin geri Local wound care Discontinue IV fluids Will give a dose of IV Lasix All cultures have been negative till date, discontinue vancomycin and ceftriaxone will start on Ceftin and doxycycline to complete a total 14 day course, last day would be 01/20/2024 3. DVT prophylaxis: Lovenox 4. Code status: Full 5. Disposition: Patient would benefit from SNF placement which would allow good local wound care. Anticipate discharge in next 24-48 hours Time Spent With Patient Time with patient: 15 - 25 minutes Subjective Date/time seen: 01/15/24 12:17 Interval history: No acute events overnight Review of Systems Review of Systems: 14 systems were reviewed with pertinent positives and negatives per HPI. Except as documented in the HPI/progress notes, all other systems were reviewed and are negative. Exam Narrative: General physical exam: Super morbidly obese female, sitting on chair at bedside, complains of being tired and fatigued Head/eyes: Atraumatic, EOMI, PERRLA ENT: Moist mucous membranes, nasal passages clear Neck: Supple, full range of motion, trachea midline CVS: S1 + S2, irregularly irregular rate and rhythm Respiratory: Bilaterally decreased air entry in both lung hurt, mild B/L crackles, symmetric chest expansion, no distress Abdomen: Soft, non-tender, bowel sounds +ve, no organomegaly Extremities: No clubbing, no cyanosis, ++++ bilateral lower leg edema, no calf tenderness Musculoskeletal: Moves all, decreased range of motion, no muscle spasms Skin: Warm, dry, no jaundice, no cyanosis, +++ erythema/scab/weeping wounds bilateral lower legs Neurological: Awake, alert, oriented x 3, cranial nerves II-XII intact, no focal neurological deficits Psychiatric: Normal mood, non suicidal Objective Data Vital Signs Vital Signs: Vital Signs - 24 hr 01/14/24 14:00 01/14/24 16:00 01/14/24 21:25 Temperature 97.7 F 97.2 F L Pulse Rate 94 97 90 Respiratory Rate 18 19 Blood Pressure 118/72 119/62 Pulse Oximetry 98 93 Oxygen Delivery 01/14/24 20:00 01/15/24 00:00 01/15/24 04:00 Temperature Pulse Rate 84 88 91 Respiratory Rate Blood Pressure Pulse Oximetry Oxygen D
[2024-01-15] MEDS: HYDROcodone/acetaminophen (*CRX) 5-325 MG TABLET 1 TAB PO (16:20)
[2024-01-15] MEDS: SALINE LOCK FLUSH 10 ML IV PUSH ×2 (16:21→21:55)
[2024-01-15] MEDS: DOXYCYCLINE HYCLATE 100 MG TABLET PO (21:15)
[2024-01-15] MEDS: cefuroxime axetiL 250 MG TABLET 500 MG PO (21:53)
[2024-01-16] VITALS: PULSE 89
[2024-01-16 05:52] VITALS: BP 113/74; PULSE 98; RESP 18; TEMP 36.4; O2SAT 99
[2024-01-16] MEDS: SALINE LOCK FLUSH 10 ML IV PUSH ×3 (06:11→20:25)
[2024-01-16 06:56] LABS: Basophils Absolute Auto 0.1 K/mm3 (0.0-0.1); Basophils Percent Auto 0.9 % (0.2-1.2); Eosinophils Absolute Auto 0.3 K/mm3 (0-0.3); Eosinophils Percent Auto 3.8 % (0-4.4); Hematocrit 44.7 % (37.0-47.0); Hemoglobin 14.7 g/dL (12.0-15.0); Immature Granulocyte Absolute 0.04 K/mm3 (0.00-0.031); Immature Granulocyte Percent A 0.5 % (0-0.5); Lymphocytes Percent Auto 13.5 % (18.3-44.2); Mean Corpuscular HGB Conc 32.9 g/dl (32-36); Mean Corpuscular Hemoglobin 30.6 pg (26-34); Mean Corpuscular Volume 93.1 fl (80-100); Mean Platelet Volume 9.1 fl (7.4-10.4); Monocytes Absolute Auto 0.7 K/mm3 (0.1-0.6); Monocytes Percent Auto 8.8 % (2.6-8.5); Neutrophils Absolute Auto 5.4 K/mm3 (1.3-6.7); Neutrophils Percent Auto 72.5 % (45.5-73.1); Platelet Count Result 353 k/mm3 (150-375); Red Cell Distribution Width 14.3 % (11.5-14.5); White Blood Count 7.4 K/mm3 (4.5-10.0)
[2024-01-16 07:26] LABS: Anion Gap 7 mmol/L (8-16); Blood Urea Nitrogen 24 mg/dL (7-17); Calcium 9.7 mg/dL (8.4-10.2); Carbon Dioxide 24 mmol/L (22-30); Chloride 104 mmol/L (98-107); Estimated CRCL calculation 85 ml/min; Estimated Glomerular Filt Rate > 60; Glucose 112 mg/dL (65-110); Potassium 3.7 mmol/L (3.4-5.0); Sodium 135 mmol/L (137-145)
--- NOTE | 2024-01-16 07:53 | P.PNINF_ITS ---
Pharmacy ID Consult - Stewardship Interventions Type of Interventions: Other Pharmacy ID Note: 01/15: Update - noted patient currently on course to finish a 14 day total course with oral antibiotics (cefuroxime/doxycycline). Wound cultures have finalized out with no growth. Will sign off at this time. Consider reconsultation if needed. WBC 7.4 K/mm3 (4.5-10.0) 01/16/24 06:31 Creatinine 0.80 mg/dL (0.7-1.0) 01/16/24 06:31 Estim Creat Clear Calc 85 ml/min 01/16/24 06:31 Subjective Pharmacy was consulted by Coty Madrid regarding infectious diseases for Pili Forrester. Pili Forrester is a 63 year old F with concerns regarding potential cellulitis and wound infection. Background The patient is currently receiving Ceftriaxone 1g q12h and Vancomycin 1500 mg q18h (pharmacy to dose) (day 4 of antibiotics overall). The patient's PMH includes chronic wounds that are actively weeping. Cultures have been obtained with initial gram stain showing gram-negative rods. Other history per provider notes. No history of previous cultures. Appears no current concern of deeper/bone infection. Microbiology 01/09/24 12:03 Leg Left Wound Culture - Preliminary 01/07/24 14:53 Blood Blood Culture - Preliminary 01/07/24 14:18 Blood Blood Culture - Preliminary Laboratory Tests 01/07/24 01/07/24 01/08/24 13:22 13:22 04:35 WBC 10.1 H Creatinine 1.20 H 1.00 Estim Creat Clear Calc Lactic Acid 1.2 01/09/24 01/10/24 01/10/24 04:31 04:00 04:00 WBC 9.9 8.4 Creatinine 0.70 Estim Creat Clear Calc 94 Lactic Acid Assessment/Recommendation/Discussion Spoke very briefly with provider. Currently, would recommend following culture results to help guide targeted therapy. If any source control for wounds is needed, consider doing so. Duration of therapy should be from most recent source control. With a wound infection with this chronicity with no signs of systemic infection, often times a brief course of antibiotics are recommended - consider a 7-10 day course of targeted therapy after any applicable source control. With no culture history, consider targeted therapy from culture results (will follow for these results). Consider Ceftriaxone 2g q24h IV or a combination of oral therapy if appropriate as more information comes to light. Continue current therapy and consider targeted therapy when more information comes to light. Will continue to follow as appropriate. Please reach out if more information comes to light. Delvis Kidd, PharmD Infectious Disease/Antimicrobial Stewardship Pharmacist 01/10/24; [id number]
[2024-01-16] MEDS: FUROSEMIDE INJ 40 MG/4 ML VIAL IV PUSH (08:58)
[2024-01-16] MEDS: SODIUM BICARBONATE TAB 650 MG TABLET PO ×2 (08:59→18:17)
[2024-01-16] MEDS: dilTIAZem HCL CD 240 MG CAP.24HR PO (08:59)
[2024-01-16] MEDS: DOXYCYCLINE HYCLATE 100 MG TABLET PO ×2 (08:59→20:24)
[2024-01-16] MEDS: cefuroxime axetiL 250 MG TABLET 500 MG PO ×2 (08:59→20:24)
[2024-01-16] MEDS: ENOXAPARIN 40 MG/0.4 ML SYRINGE SUB-Q (08:59)
[2024-01-16 10:41] VITALS: O2SAT 94
--- NOTE | 2024-01-16 13:34 | PM.IMPN ---
Progress Note: A&P Assessment and Plan (1) Hypothyroidism: Code(s): E03.9 - Hypothyroidism, unspecified Status: Acute (2) Morbid obesity with BMI of 50.0-59.9, adult: Code(s): E66.01 - Morbid (severe) obesity due to excess calories; Z68.43 - Body mass index [BMI] 50.0-59.9, adult Status: Acute (3) Noncompliance w/medication treatment due to intermit use of medication: Code(s): Z91.148 - Patient's other noncompliance with medication regimen for other reason Status: Acute (4) Edema of both legs: Code(s): R60.0 - Localized edema Status: Acute (5) Wounds, multiple: Code(s): T07.XXXA - Unspecified multiple injuries, initial encounter Status: Acute (6) Renal insufficiency: Code(s): N28.9 - Disorder of kidney and ureter, unspecified Status: Acute (7) Electrolyte abnormality: Code(s): E87.8 - Other disorders of electrolyte and fluid balance, not elsewhere classified Status: Acute (8) Atrial fibrillation with rapid ventricular response: Code(s): I48.91 - Unspecified atrial fibrillation Status: Acute Plan ?63-year-old female with paroxysmal atrial fibrillation and cervical cancer in 2011 who presented to the emergency department via private vehicle from home for evaluation of lower extremity wounds.? In ER she was noted to be in AFib with RVR. , was started on Cardizem drip. Will. 1. AFib with RVR: Appreciate Cardiology help AFib now in a controlled Currently on oral Cardizem 2D echo with color Doppler showed preserved left ventricular function with EF of 50-55% Noncompliant with outpatient follow-up with Cardiology 2. Bilateral lower extremity wounds with possible cellulitis: Wound cultures have been growing skin geri Local wound care Will give a dose of IV Lasix All cultures have been negative till date, discontinue vancomycin and ceftriaxone will start on Ceftin and doxycycline to complete a total 14 day course, last day would be 01/20/2024 3. DVT prophylaxis: Lovenox 4. Code status: Full 5. Disposition: Patient would benefit from SNF placement which would allow good local wound care. Insurance denied SNF care. Plan to discharge her home with home health. Plan for discharge tomorrow morning. Time Spent With Patient Time with patient: 15 - 25 minutes Subjective Date/time seen: 01/16/24 13:34 Interval history: No acute events overnight Review of Systems Review of Systems: 14 systems were reviewed with pertinent positives and negatives per HPI. Except as documented in the HPI/progress notes, all other systems were reviewed and are negative. Exam Narrative: General physical exam: Super morbidly obese female, sitting on chair at bedside, complains of being tired and fatigued Head/eyes: Atraumatic, EOMI, PERRLA ENT: Moist mucous membranes, nasal passages clear Neck: Supple, full range of motion, trachea midline CVS: S1 + S2, irregularly irregular rate and rhythm Respiratory: Bilaterally decreased air entry in both lung hurt, mild B/L crackles, symmetric chest expansion, no distress Abdomen: Soft, non-tender, bowel sounds +ve, no organomegaly Extremities: No clubbing, no cyanosis, ++++ bilateral lower leg edema, no calf tenderness Musculoskeletal: Moves all, decreased range of motion, no muscle spasms Skin: Warm, dry, no jaundice, no cyanosis, +++ erythema/scab/weeping wounds bilateral lower legs Neurological: Awake, alert, oriented x 3, cranial nerves II-XII intact, no focal neurological deficits Psychiatric: Normal mood, non suicidal Objective Data Vital Signs Vital Signs: Vital Signs - 24 hr 01/15/24 13:55 01/15/24 16:00 01/15/24 21:21 Temperature 97.3 F L 97.5 F L Pulse Rate 88 95 86 Respiratory Rate 18 20 Blood Pressure 109/76 104/78 Pulse Oximetry 100 99 Oxygen Delivery 01/15/24 20:00 01/15/24 20:00 01/16/24 00:00 Temperature Pulse Rate 94 89 Respiratory Rate
--- NOTE | 2024-01-16 13:46 | PCPTNOTE ---
Patient declined PT this afternoon stating she would like to get up and walk but does feel like she could make a lot of progress due to receiving lasix this morning and is frequently needing to urinate. PT will continue to follow per plan of care.
--- NOTE | 2024-01-16 13:58 | PC.NURSE ---
During morning med pass, pt sitting in recliner at 0835, refusing to take meds until later . Pt finally took medications at 1025. Pt refusing dressing changes this AM at 0835, again with med pass (1025), 1130, and 1345. Pt educated on necessity of wound care to ensure wound cleanliness and healing. Pt voices understanding, but she says she can't right now. Offered pain medications, but pt states she needs to pee too much and she will let me know when I am able to do dressings.
[2024-01-16 14:00] VITALS: BP 123/92; PULSE 97; RESP 18; TEMP 36.2; O2SAT 100
[2024-01-16 16:00] VITALS: PULSE 84
[2024-01-16] MEDS: ACETAMINOPHEN 325 MG TABLET 650 MG PO (18:16)
[2024-01-16 21:07] VITALS: BP 109/61; PULSE 96; RESP 14; TEMP 36.8; O2SAT 98
[2024-01-17 04:00] VITALS: PULSE 85
[2024-01-17 05:49] VITALS: BP 121/70; PULSE 89; RESP 12; TEMP 36.5; O2SAT 98
[2024-01-17 08:00] VITALS: PULSE 96
[2024-01-17] MEDS: dilTIAZem HCL CD 240 MG CAP.24HR PO (11:03)
[2024-01-17] MEDS: SODIUM BICARBONATE TAB 650 MG TABLET PO (11:03)
[2024-01-17] MEDS: DOXYCYCLINE HYCLATE 100 MG TABLET PO (11:03)
[2024-01-17] MEDS: cefuroxime axetiL 250 MG TABLET 500 MG PO (11:06)
--- NOTE | 2024-01-17 11:34 | PCPTNOTE ---
Patient declined PT at this time stating she has weeping from LE's and will need LE dressings changed before participating in PT. PT will continue to follow per plan of care. RN aware.
[2024-01-17 12:00] VITALS: PULSE 100
[2024-01-17 14:00] VITALS: BP 108/61; PULSE 83; RESP 22; TEMP 36.6; O2SAT 98
--- NOTE | 2024-01-17 15:22 | PM.DS ---
DS: Admitting Diagnosis Discharge Date January 17, 2024 Admitting Diagnosis Wounds of the lower extremity DS: Discharge Diagnosis Discharge Diagnosis (1) Morbid obesity with BMI of 50.0-59.9, adult: Code(s): E66.01 - Morbid (severe) obesity due to excess calories; Z68.43 - Body mass index [BMI] 50.0-59.9, adult Status: Acute (2) Hypothyroidism: Code(s): E03.9 - Hypothyroidism, unspecified Status: Acute (3) Noncompliance w/medication treatment due to intermit use of medication: Code(s): Z91.148 - Patient's other noncompliance with medication regimen for other reason Status: Acute (4) Edema of both legs: Code(s): R60.0 - Localized edema Status: Acute (5) Atrial fibrillation with rapid ventricular response: Code(s): I48.91 - Unspecified atrial fibrillation Status: Acute (6) Electrolyte abnormality: Code(s): E87.8 - Other disorders of electrolyte and fluid balance, not elsewhere classified Status: Acute DS: Summary Hospital Course Hospital Course: 63-year-old female with a history of paroxysmal atrial fibrillation and cervical cancer in 2011 and morbid obesity presents with complaint of lower extremity wounds and worsening swelling. She also arrived in AFib with RVR. She has been noncompliant with therapy and discontinue diltiazem. She was on sotalol and discontinue Xarelto has well. The patient has been educated but has been resistant to provided recommendations. None the less she has been started on diltiazem 240 mg p.o. q.a.m. which has rate controlled her. Educated on the risk and benefits of taking anticoagulation an even antiplatelet however the patient prefers to manage on her own and forego further therapy. As for her leg swelling she has been heavily counseled on weight lost and the therapies for chronic stasis such as elevation of the legs and compression stockings. She is being set up with a new PCP and she knows to follow up with wound care as well. He will also be prescribed cefuroxime and doxycycline for another 3 days to complete a 14 day course for possible cellulitis. Wound cultures taken on 01/08 and 01/11 menstruating normal skin geri and blood cultures taken on 01/06 demonstrating no growth. She will have repeat BMP in 3 days for mild electrolyte abnormalities. She was found to have a elevated TSH normal T4 and decreased total T3. Again with her other therapies we hope she can follow up with primary care. On 01/17/2024 the patient is stable for discharge to home with home health. Time Spent with Patient Time attestation: Total time spent providing and/or coordinating discharge services: Exam Const: General: comfortable and no acute distress Other: A&O x3. Morbidly obese female Eyes: Pupils: Equal, round and reactive pupils present Neck: Neck: supple Resp: Effort & Inspection: normal respiratory effort Auscultation: crackles (Mild at the bases) and diminished lung sounds Cardio: Rate: regular rate Rhythm: abnormal rhythm Heart sounds: no gallops, no murmurs and no rubs GI: GI Palp: Yes Soft to palpation and No Tenderness to palpation present (GI) Extrem: General: edema (Severe edema chronic stasis changes and venous insufficiency wounds) Discharge Plan Discharge Attending physician on discharge: India Hudson Consulting providers: Laura Brooks Discharging Clinician: India Hudson Patient Disposition: Home Health Service Activity: may shower Diet: heart healthy Discharge Instructions: Patient has an appointment with: Dr. Yuri Lugo MD on 01/23/24 at 10:00 am. [address] [facility] [address] [place] [address] Please arrive 15 minutes prior to the appointment to complete paper work and bring a photo ID and insurance card. Pt is requesting home health services with [facility] once she has been seen and please fax order to [facility] [employer] production manager eleni
[2024-01-17] MEDS: NEOMYCIN/POLYMYXIN/BACITRACIN OINTMENT PACKET 1 PACKET (15:45)
== END 2024-01-17 17:26 | disposition home or self-care (01) | DRG 300 ==
LOC: ANHED 16:36 → ANHIMU 17:09 → ANH3MEDSUR 01-16 13:34 → ANHIMU 01-20 16:55
PROVIDERS: Family Medicine; Physician Assistant; Admitting Provider Internal Medicine; Emergency Provider Emergency Medicine; Referring Provider Emergency Medicine; Visit Provider General Practice
DX: I87.2 Venous insufficiency (chronic) (peripheral) (principal); L03.115 Cellulitis of right lower limb; L03.116 Cellulitis of left lower limb; L97.229 Non-pressure chronic ulcer of left calf with unspecified severity; Z68.43 Body mass index [BMI] 50.0-59.9, adult; L97.219 Non-pressure chronic ulcer of right calf with unspecified severity; I48.0 Paroxysmal atrial fibrillation; E66.01 Morbid (severe) obesity due to excess calories; E03.9 Hypothyroidism, unspecified; R60.0 Localized edema; Z91.148 Patient's other noncompliance with medication regimen for other reason; Z85.41 Personal history of malignant neoplasm of cervix uteri; Z90.710 Acquired absence of both cervix and uterus; Z79.01 Long term (current) use of anticoagulants; Z86.16 Personal history of COVID-19; Z28.21 Immunization not carried out because of patient refusal
CPT/HCPCS: 36415; 36569; 71045; 76775; 80048; 80053; 80202; 82550; 82565; 82948; 83605; 83735; 83880; 84100; 84439; 84443; 84480; 85025; 85055; 87040; 87070; 87205; 93005; 93970; 94762; 96361; 96365; 96366; 96367; 96372; 96375; 96376; 97161; 97165; 97530; 97535; 99285; A9270; C1751; C8929; G0378; J0692; J0696; J1650; J1885; J1940; J2270; J2405; J3370; J7030; Q9957

== ENCOUNTER 2024-02-08 16:40 | Observation (INO) | payer MEDICARE, SELFPAY ==
[2024-02-08] VITALS (15 sets, daily range): BP systolic 114–138; BP diastolic 68–100; PULSE 100–169; RESP 18–26; TEMP 36.6; O2SAT 97–100
--- NOTE | ~2024-02-08 | US_ITS ---
EXAMINATION: US renal BI DATE: 02/09/2024 08:35 INDICATION: Hematuria TECHNIQUE: Multiple ultrasound grayscale images of the kidneys were obtained. COMPARISON: 01/08/2024 FINDINGS: The right kidney measures 10.3 x 5.6 x 5.7 cm. The left kidney measures 12.1 x 5.8 x 4.7 cm. The kidn eys demonstrate normal echogenicity. Mild left hydronephrosis.. There is no hydronephrosis of the rig ht kidney. No stones identified. There is mild diffuse bladder wall thickening. IMPRESSION: 1. Mild left hydronephrosis. 2. Diffuse mild bladder wall thickening which can be seen with chronic outlet obstruction, neurogenic bladder or cystitis either acute or chronic. Correlate with urinalysis. Reviewed, dictated and finalized at location A. IMPRESSION: 1. Mild left hydronephrosis. 2. Diffuse mild bladder wall thickening which can be seen with chronic outlet o bstruction, neurogenic bladder or cystitis either acute or chronic. Correlate w ith urinalysis.
--- NOTE | ~2024-02-08 | XR_ITS ---
EXAMINATION: XR abdomen/kub 1V DATE: 02/08/2024 21:19 INDICATION: Left flank pain. TECHNIQUE: A supine view of the abdomen on 3 radiographs was obtained. COMPARISON: None. FINDINGS: There are no dilated loops of bowel. There is a moderate volume of stool in the colon. Ther e is no visible urolithiasis. IMPRESSION: 1. Normal bowel gas pattern. Reviewed, dictated and finalized at location E.
--- NOTE | 2024-02-08 19:17 | ECG_ITS ---
SEE SCANNED COPY FOR CONFIRMED REPORT MTDD
--- NOTE | 2024-02-08 19:21 | ED.FEMALEGU ---
HPI - Female Genitourinary General Chief complaint: Urogenital-Female Stated complaint: peeing blood L back pain Time Seen by Provider: 02/08/24 18:36 Source: patient Mode of arrival: ambulatory Limitations: no limitations History of Present Illness HPI Narrative: this is a 63-year-old female with PMH of a hip, morbid obesity, chronic lower leg wounds who presents to the ED for chief complaint of hematuria. Reports it started last night she has had 2 separate episodes of blood tinged urine. Also reports she is developing abdominal pain with left-sided flank pain. Reports the pain is 7/10 and it comes in waves. Reports nausea comes in waves as well. Denies fevers, chills, diarrhea, cough, Related Data Allergies Allergy/AdvReac Type Severity Reaction Status Date / Time codeine Allergy Unknown Other Verified 02/08/24 19:03 diazepam Allergy Unknown Other Verified 02/08/24 19:03 Review of Systems Review of Systems: All systems as dictated in HPI [facility] Past Medical History Medical History Cervical cancer (2011) Paroxysmal atrial fibrillation Surgical History Surgical History History of hysterectomy (2011) For cervical cancer. Family History Family History Mother CKD (chronic kidney disease) Father Lung cancer Sibling Non-Hodgkin lymphoma Social History Social History Social History: Surrogate medical decision maker: Kishan Forrester, brother. Code status: Full code. Smoking status: Never smoker Alcohol intake: never Substance use: never Do You Feel Safe in your Home?: Yes Lack of Transportation: YES Lack of Food: Never True Current Housing: I Have Housing Concerned About Future Housing: No Difficulty Paying Gas/Electric Bills: No Difficulty Paying for Meds: No Currently Unemployed: No Education: Master's Degree or Higher Difficulty w/ Childcare or Family Care: No Additional living arrangements comments: The patient lives in her own home in [place]. She has a boxer named Dana. 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: No Exam Narrative: GENERAL: morbidly obese. Resting comfortably. HEAD: Normocephalic, atraumatic. EYES: PERRLA and EOMI. ENT: Nares clear, no rhinorrhea or epistaxis. Mucous membranes moist. Oropharynx without tonsillar hypertrophy exudate or other lesions. NECK: Supple. No adenopathy or masses. CHEST: No respiratory distress. Clear to auscultation. No wheezes rales or rhonchi HEART: Regular rate and rhythm. No murmur heard. Normal peripheral pulses. ABDOMEN: Mild left-sided abdominal tenderness and left flank tenderness. Soft, nondistended, normal active bowel sounds. MSK: Normal range of motion. No edema. SKIN: Warm, dry, no rash. NEURO: Alert and oriented x3. No focal deficits. PSYCH: Normal mood and affect. Course Vital Signs Vital signs: Vital Signs Temperature 97.9 F 02/08/24 16:55 Pulse Rate 108 H 02/08/24 16:55 Respiratory Rate 18 02/08/24 16:55 Blood Pressure 138/100 H 02/08/24 16:55 Pulse Oximetry 100 02/08/24 16:55 Oxygen Delivery Room Air 02/08/24 16:55 Temperature 97.9 F 02/08/24 16:55 Pulse Rate 118 H 02/08/24 23:51 Respiratory Rate 20 02/08/24 23:51 Blood Pressure 114/76 02/08/24 23:51 Pulse Oximetry 98 02/08/24 23:51 Oxygen Delivery Room Air 02/08/24 16:55 MDM - Female Genitourinary MDM Narrative Medical decision making narrative: This is a 63-year-old female who presents to the ED for chief complaint of hematuria and flank pain. Vitals show initial tachycardia and mild hypertension. No fever. EKG remarkable for AFib with RVR. Exam does show left flank tender
[2024-02-08] MEDS: SODIUM CHLORIDE 0.9% IV 1,000 ML 999 ML IV CONT ×2 (19:30→20:38)
--- NOTE | 2024-02-08 19:30 | PC.NURSE ---
Patient declining dilaudid and zofran at this time. Wants to hold until in pain.
[2024-02-08 19:43] LABS: Basophils Absolute Auto 0.1 K/mm3 (0.0-0.1); Basophils Percent Auto 0.4 % (0.2-1.2); Eosinophils Percent Auto 0.2 % (0-4.4); Hematocrit 38.2 % (37.0-47.0); Hemoglobin 12.6 g/dL (12.0-15.0); Immature Granulocyte Absolute 0.04 K/mm3 (0.00-0.031); Immature Granulocyte Percent A 0.3 % (0-0.5); Lymphocytes Absolute Auto 1.28 K/mm3 (0.9-3.2); Lymphocytes Percent Auto 10.3 % (18.3-44.2); Mean Corpuscular Hemoglobin 31.1 pg (26-34); Mean Corpuscular Volume 94.3 fl (80-100); Mean Platelet Volume 10.8 fl (7.4-10.4); Monocytes Absolute Auto 1.1 K/mm3 (0.1-0.6); Monocytes Percent Auto 9.2 % (2.6-8.5); Neutrophils Absolute Auto 9.9 K/mm3 (1.3-6.7); Neutrophils Percent Auto 79.6 % (45.5-73.1); Platelet Count Result 291 k/mm3 (150-375); Red Blood Count 4.05 M/mm3 (4.2-5.4); Red Cell Distribution Width 15.5 % (11.5-14.5); White Blood Count 12.5 K/mm3 (4.5-10.0)
[2024-02-08 19:54] LABS: INR 1.1; Prothrombin Time 14.9 Seconds (11.1-14.7)
[2024-02-08 19:55] LABS: Partial Thromboplastin Time 28.5 Seconds (22.3-36.8)
[2024-02-08 19:58] LABS: Appearance Urine Cloudy (Clear); Bacteria Urine None Seen /hpf; Bilirubin Urine 1+ (Negative); Blood Urine 3+ (Negative); Budding Yeast Urine Present /hpf; Calcium Oxalate Crystals Urine Present /hpf; Color Urine Dark Yellow (Yellow); Glucose Urine UA Negative (Negative); Ketones Urine Trace mg/dL (Negative); Leukocyte Esterase Ur Trace LEU/UL (Negative); Mucus Urine Present /lpf; Need Manual Microscopic Reviewed; Nitrate Urine Negative (Negative); Protein Urine 1+ mg/dL (Negative); RBC Urine >100 /hpf (0-2); Specific Grav Ur 1.019 (1.001-1.035); Squamous Epithelial Cell Urine Few /hpf (Few); WBC Urine 0-5 /hpf (0-3); pH Urine 5.5 (5.0-9.0)
[2024-02-08 19:59] LABS: Add Urine Microscopic? YES
[2024-02-08 20:52] LABS: Alanine Aminotransferase 18 U/L (6-35); Alkaline Phosphatase 126 U/L (38-126); Anion Gap 8 mmol/L (4-12); Aspartate Amino Transferase 25 U/L (14-36); Bilirubin,Total 1.5 mg/dL (0.2-1.3); Blood Urea Nitrogen 17 mg/dL (7-17); Calcium 9.4 mg/dL (8.4-10.2); Carbon Dioxide 25 mmol/L (22-30); Chloride 106 mmol/L (98-107); Estimated CRCL calculation 71 ml/min; Estimated Glomerular Filt Rate 50; Glucose 96 mg/dL (65-110); Lactic Acid Reflex 1.9 mmol/L (0.7-2.0); Lipase 118 U/L (23-300); Potassium 3.9 mmol/L (3.4-5.0); Sodium 139 mmol/L (137-145)
[2024-02-08] MEDS: dilTIAZem HCl INJ 25 MG/5 ML VIAL 10 MG IV PUSH (21:51)
[2024-02-08] MEDS: dilTIAZem 100 MG/100 ML 100 MG/100 ML BAG IV CONT (23:36)
--- NOTE | 2024-02-08 23:55 | PM.IMHP ---
H&P: HPI History of Present Illness Date/Time: 02/08/24 22:30 Chief Complaint: Left flank pain and blood in urine Narrative: 63-year-old female with a past medical history of cervical cancer status post hysterectomy, super morbid obesity, chronic lymphedema and longstanding paroxysmal atrial fibrillation (not on anticoagulation) and family history of kidney stones who presented to the ER via private vehicle due to left flank pain and blood in her urine. The patient reports that in the middle the night she began having pain in her left lower flank. The pain is constant with occasional episodes of increased intensity up to a 7/10. She reports the pain seemed to improve when she would get up and ambulate. She denied any specific eliciting factors. She denies history of kidney stones but does have a significant family history of kidney stones. She had associated symptoms of acute fatigue and just not feeling well the day prior. She denies any dysuria or changes in urinary frequency. She reports that she solid collection of blood at the bottom of the toilet but denied having any active clots. She had 2 episodes of hematuria prior to coming to the ER. She has not had any fevers. She has chronic chills. She reports that the ER his freezing because she keeps her house at 75? all the time. She used to be on sotalol for AFib but in December was hospitalized for chronic venous stasis wound and AFib RVR. She reports that her wounds have been doing better since her last hospitalization but she is upset that she has not had a chance to change her dressings today. She is still having weeping from her extremities. She did complete her 14 day course of cefuroxime and doxycycline. He she was on sotalol prior to her recent hospitalization but this was discontinued it was not controlling her AFib. She was subsequently switched to Cardizem 240 mg daily. She was noted to be in AFib RVR on presentation to the ER with heart rates anywhere between 110 and 160. The patient reports that she does not really feel when she is in AFib in denies any shortness of breath chest pain or palpitations. She is frustrated that providers rate when discussing her AFib since she was not coming in complaining of symptoms of such. She is not on chronic anticoagulation based on most recent guidelines. It is unclear if the patient has been taking the daily recommend 81 mg aspirin as is not listed on her home med rec. She denies history of obstructive sleep apnea. She has had significant weight gain since her last polysomnogram many years ago. She denies daytime fatigue except for in the setting of acute illness. She denies any known history of snoring but lives alone. Review of Systems Review of Systems: 12 systems were reviewed with pertinent positives and negatives per HPI. Except as documented in the HPI, all other systems were reviewed and are negative. 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 Moderate tricuspid valve regurgitation Morbid obesity with BMI of 60.0-69.9, adult Paroxysmal atrial fibrillation Severe mitral valve regurgitation Surgical History Surgical History (Updated 02/09/24 @ 04:36 by Isabel Welch DO) History of total abdominal hysterectomy and bilateral salpingo-oophorectomy (2011) Family History Family History (Updated 02/09/24 @ 04:37 by Isabel Welch DO) Mother CKD (chronic kidney disease), Onset Age: 18 Glomerular nephritis Father Lung cancer Sibling Non-Hodgkin lymphoma Recurrent kidney stones Social History Social History (Updated 02/09/24 @ 04:39 by Isabel Welch DO) Social History: Surrogate medical decision maker: Kishan Forrester, brother. Code status: DNR/DNI Smoking status: Never smoker Second hand tobacco smoke exposure: No Alcohol intake: never Substance use: never Do You Feel Safe
--- NOTE | 2024-02-08 23:57 | PC.NURSE ---
Dilaudid and zofran held until patient wanted them. Not given in ED(see MAR), patient has PRN orders place by hospitalist.
[2024-02-09] VITALS (23 sets, daily range): BP systolic 99–120; BP diastolic 52–70; PULSE 86–150; RESP 16–20; TEMP 36.3–37.2; O2SAT 95–97; BMI 62.8
[2024-02-09 00:54] LABS: Procalcitonin 0.1 ng/mL
--- NOTE | 2024-02-09 02:46 | ADMGEN ---
This patient, Pili Forrester, was admitted to IMU Room 209-01. Patient/family oriented to hospital policies and general routines including ID bracelet, bed and alarms, visiting hours, pain management, procedures, bathroom and other care routines, personal items, smoking policy, room service/diet, and visiting hours. Information on how to activate the Rapid Response Team has been discussed. Patient/Family are encouraged to report perceived risks to care and to ask questions if they do not understand what they are told or what they should do.
[2024-02-09] MEDS: SODIUM CHLORIDE 0.9% IV 1,000 ML 100 ML IV CONT ×2 (03:10→13:58)
--- NOTE | 2024-02-09 03:10 | PC.NURSE ---
Dr Welch made aware of patient history of SI many years ago while taking zoloft. No hx of SI attempt, no suicidal ideation since. No need for suicide precautions.
[2024-02-09] MEDS: ACETAMINOPHEN 325 MG TABLET 650 MG PO ×2 (03:21→22:10)
[2024-02-09 06:03] LABS: Hematocrit 34.3 % (37.0-47.0); Hemoglobin 10.7 g/dL (12.0-15.0); Mean Corpuscular HGB Conc 31.2 g/dl (32-36); Mean Corpuscular Hemoglobin 30.8 pg (26-34); Mean Corpuscular Volume 98.8 fl (80-100); Mean Platelet Volume 9.4 fl (7.4-10.4); Platelet Count Result 289 k/mm3 (150-375); Red Blood Count 3.47 M/mm3 (4.2-5.4); Red Cell Distribution Width 15.6 % (11.5-14.5); White Blood Count 10.9 K/mm3 (4.5-10.0)
[2024-02-09 06:16] LABS: Anion Gap 8 mmol/L (4-12); Blood Urea Nitrogen 17 mg/dL (7-17); Calcium 8.6 mg/dL (8.4-10.2); Carbon Dioxide 20 mmol/L (22-30); Chloride 111 mmol/L (98-107); Estimated CRCL calculation 80 ml/min; Estimated Glomerular Filt Rate > 60; Glucose 92 mg/dL (65-110); Potassium 3.5 mmol/L (3.4-5.0); Sodium 139 mmol/L (137-145)
[2024-02-09] MEDS: dilTIAZem HCL CD 240 MG CAP.24HR PO (08:50)
[2024-02-09] MEDS: MULTIVITAMINS /C LUTEIN (CENTRUM SILVER) TABLET *BKC 1 TAB PO (08:50)
--- NOTE | 2024-02-09 09:30 | PM.IMPN ---
Progress Note: A&P Assessment and Plan (1) Abnormal finding on urinalysis: Code(s): R82.90 - Unspecified abnormal findings in urine Status: Acute Assessment and Plan: Urine culture was sent report pending. Will continue with IV antibiotics. (2) Acute kidney injury: Code(s): N17.9 - Acute kidney failure, unspecified Status: Acute Assessment and Plan: Will continue with fluids and monitor creatinine closely. (3) Leukocytosis: Qualifiers: Leukocytosis type: unspecified Qualified Code(s): D72.829 - Elevated white blood cell count, unspecified Code(s): D72.829 - Elevated white blood cell count, unspecified Status: Acute Assessment and Plan: Probably secondary to increased UTI. Will continue with IV antibiotics and monitor closely (4) Atrial fibrillation with rapid ventricular response: Code(s): I48.91 - Unspecified atrial fibrillation Status: Acute Assessment and Plan: Stable on current medications, will continue current treat (5) Morbid obesity with BMI of 60.0-69.9, adult: Code(s): E66.01 - Morbid (severe) obesity due to excess calories; Z68.44 - Body mass index [BMI] 60.0-69.9, adult Status: Acute Assessment and Plan: Diet instructions. 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 (7) Wounds, multiple: Code(s): T07.XXXA - Unspecified multiple injuries, initial encounter Status: Acute Assessment and Plan: Wound care consult. Plan The patient is having flank pain and has urine that demonstrated significant hematuria with greater than 100 rbc's. Patient denies known history of kidney stones. She had prior renal ultrasound in December which demonstrated no significant pathology. It would be nice to see teeth patient for a kidney stone unfortunately her body habitus prohibits CT scan. She is below the weight limit for the CT scanner but the maximum circumference that would fit into the CT scanner is 27 in in the patient's waist circumference is 35 in and her circumference to her hips is even larger. KUB performed in the ER did not demonstrate any evidence of stones. Patient's urine did not seem overtly suggestive of infection but patient does have some mild leukocytosis. Original UA did not reflex to culture however I have placed a separate order for urine culture. Patient was started on empiric antibiotic therapy with Rocephin. Patient does have some mild acute kidney injury. Patient been placed on gentle IV fluid hydration. Again concern for possible kidney stone. Will strain urine. Given that we cannot imaged the patient will consult Urology for possible evaluation for kidney stone versus bladder pathology and subsequent recommendations The patient does have history of paroxysmal AFib in is in AFib RVR. When patient insist upon standing and ambulating to the bathroom patient's heart rate is jumping up to 190. At rest patient's heart rate [id number]. Patient reportedly took her home Cardizem. Will continue patient's home Cardizem and place patient on a Cardizem drip as well. Cardizem drip has now been increased to 10 with only minimal improvement in heart rate control. Will consult cardiology for further recommendations and management. Will monitor strict I&O's and daily weights. Patient has chronic lymphedema chronic wounds. Patient would benefit from further outpatient lymphedema management but has difficulty with mobility and has had a history of noncompliance with follow-up in the past. Will consult wound care and continue with dressing changes. No evidence of acute infection. Patient does have morbid obesity. Instead of her weight going down since her last hospitalization (which significant diet lifestyle modification was recommended at that
[2024-02-09] MEDS: dilTIAZem 100 MG/100 ML 100 MG/100 ML BAG 10 MG IV CONT (10:00)
--- NOTE | 2024-02-09 11:25 | WPDURCON ---
Assessment and Plan Assessment and plan (1) Gross hematuria: Code(s): R31.0 - Gross hematuria Status: Acute Assessment and Plan: patient's presenting complaint which started overnight 02/08/2024. - Discussed with patient the differential diagnosis for gross hematuria which could include infection, stones in the bladder kidney, vascular conditions, inflammatory conditions, tumor in the kidney, ureter, bladder, urethra. - Her hematuria is new reportedly somewhat mild associated with mild left flank pain which is now essentially resolved - discussed with her the general workup for hematuria would include CT urogram and cystoscopy. Of note due to body habitus the patient is unable to obtain inpatient CT scan here at [facility] and thus our workup is significantly limited. We did obtain a renal ultrasound this morning that demonstrated no obvious mass lesions there is may be very mild left hydronephrosis, no obvious stones were identified. No large mass visualized within the bladder or clot. - Given the hematuria seems to be improved this morning would monitor closely however do not think she has an urgent / emergent indication for transfer or more aggressive workup at this point time. If hematuria continues to be improved hopefully we can get her a CT at another facility as an outpatient and she can follow up for outpatient cystoscopy (2) Left flank pain: Code(s): R10.9 - Unspecified abdominal pain Status: Acute Assessment and Plan: resolved this morning in the setting of mild left hydronephrosis on ultrasound it is possible this was due to either clot or perhaps a small kidney stone. Would monitor for return of pain, but for now do not think this needs urgent investigation given we cannot get a CT scan. (3) Hydronephrosis, left: Code(s): N13.30 - Unspecified hydronephrosis Status: Acute Assessment and Plan: As above (4) UTI (urinary tract infection): Code(s): N39.0 - Urinary tract infection, site not specified Status: Acute Assessment and Plan: straight cath urine from the ER does not show bacteria and is nitrite negative, it was positive for yeast. In light of her new hematuria and mild leukocytosis agree with empiric antibiotics, follow-up culture. Would also consider adding Diflucan until cultures resolved given yeast on urine sample albeit there is a high probability of contamination given patient's body habitus. Should the patient develop fevers, chills, other signs of more substantial clinical instability please notify our service as at that point we may consider taking her urgently for empiric stent placement given the mild left hydronephrosis, however with pain resolved and patient overall appearing quite stable this morning I am not certain this is warranted at this point time Urology Consult Note HPI Date Seen: 02/09/24 Requesting Physician: Isabel Welch DO Primary Care Provider: WHEELCHAIR RENTAL CLERK PHYSICIAN Consult Narrative Narrative: Pili Forrester is a 63 year old female with history of AFib, morbid obesity, chronic lower extremity leg wounds, endometrial cancer status post hysterectomy who presented to the emergency department yesterday with complaint of new gross hematuria and left flank pain that began Saturday night. She reports feeling about her baseline and Saturday night noticed some mild left flank and left lower quadrant pain, overnight into Saturday morning she noticed some bloody urine with possibly small clot like debris then cleared over the day. Pain worsened yesterday was the main reason she came to the emergency department. In the emergency department she was assessed in is seen to have mild left flank pain, vital signs were largely normal except for she is in AFib which is a chronic state for her with her rate mostly around 100 although overnight did have several episodes of RVR with her a size 190. Straight cath urine demonst
--- NOTE | 2024-02-09 11:39 | WPDURCON ---
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 Moderate tricuspid valve regurgitation Morbid obesity with BMI of 60.0-69.9, adult Paroxysmal atrial fibrillation Severe mitral valve regurgitation Surgical History Surgical History (Updated 02/09/24 @ 04:36 by Isabel Welch DO) History of total abdominal hysterectomy and bilateral salpingo-oophorectomy (2011) Family History Family History (Updated 02/09/24 @ 04:37 by Isabel Welch DO) Mother CKD (chronic kidney disease), Onset Age: 18 Glomerular nephritis Father Lung cancer Sibling Non-Hodgkin lymphoma Recurrent kidney stones Social History Social History (Updated 02/09/24 @ 04:39 by Isabel Welch DO) Social History: Surrogate medical decision maker: Kishan Forrester, brother. Code status: DNR/DNI Smoking status: Never smoker Second hand tobacco smoke exposure: No Alcohol intake: never Substance use: never Do You Feel Safe in your Home?: Yes Lack of Transportation: No Lack of Food: Never True Current Housing: I Have Housing Concerned About Future Housing: No Difficulty Paying Gas/Electric Bills: No Difficulty Paying for Meds: No Currently Unemployed: No Education: Master's Degree or Higher Difficulty w/ Childcare or Family Care: No Additional living arrangements comments: The patient lives in her own home in [place]. She has a boxer named Dana. She does not have any children. 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: No Meds Home Medications and Allergies Home Medications Medication Instructions Recorded Confirmed Type diltiazem HCl 240 mg 240 mg PO QAM #30 caps 01/17/24 02/09/24 Rx capsule,extended release 24 hr, controlled multivit with minerals-iron 18 1 tablet PO DAILY 02/09/24 02/09/24 History mg-folic ac 400 mcg-vit K 25 mcg tablet (Adults Multivitamin) Allergies Allergy/AdvReac Type Severity Reaction Status Date / Time codeine Allergy Unknown Other Verified 02/08/24 19:03 diazepam Allergy Unknown Other Verified 02/08/24 19:03 Vital Signs Vital Signs - 24 hr 02/08/24 16:55 02/08/24 19:02 02/08/24 19:16 Temperature 36.6 C Pulse Rate 108 H 156 H 169 H Respiratory Rate 18 19 20 Blood Pressure 138/100 H 120/87 131/99 H Pulse Oximetry 100 99 Oxygen Delivery Room Air 02/08/24 19:32 02/08/24 19:46 02/08/24 20:01 Temperature Pulse Rate 141 H 141 H 129 H Respiratory Rate 20 Blood Pressure 116/82 126/87 126/68 Pulse Oximetry 97 Oxygen Delivery 02/08/24 20:36 02/08/24 21:00 02/08/24 21:01 Temperature Pulse Rate 132 H 114 H 142 H Respiratory Rate 21 H 26 H 25 H Blood Pressure 121/90 119/92 H Pulse Oximetry 98 Oxygen Delivery 02/08/24 21:52 02/08/24 22:01 02/08/24 22:30 Temperature Pulse Rate 138 H 100 121 H Respiratory Rate 23 H 20 Blood Pressure 121/89 120/82 Pulse Oximetry 97 Oxygen Delivery 02/08/24 22:32 02/08/24 23:36 02/08/24 23:51 Temperature Pulse Rate 133 H 143 H 118 H Respiratory Rate 22 H 20 Blood Pressure 117/87 114/82 114/76 Pulse Oximetry 98 Oxygen Delivery 02/09/24 04:29 02/09/24 04:00 02/09/24 00:30 Temperature 36.6 C Pulse Rate 120 H 108 H Respiratory Rate 16 Blood Pressure 114/70 114/70 Pulse Oximetry 96 Oxygen Delivery Room Air 02/09/24 06:11 02/09/24 00:11 02/09/24 04:00 Temperature 36.9 C Pulse Rate 104 H 124 H Respiratory Rate 20 Blood Pressure 112/52 L 120/70 Pulse Oximetry 97 Oxygen Delivery Room Air 02/09/24 06:00 02/09/24 02:00 02/09/24 04:00 Temperature Pu
--- NOTE | 2024-02-09 11:42 | PM.CNCAR ---
Assessment and Plan Assessment and plan (1) Atrial fibrillation with rapid ventricular response: Code(s): I48.91 - Unspecified atrial fibrillation Status: Acute Plan Persistent atrial fibrillation with RVR Likely ventricular rate is uncontrolled in the setting of sepsis and bleeding with discomfort Hematuria possible kidney stones Bilateral extremity cellulitis Plan Continue diltiazem 240 mg daily Add metoprolol 25 mg b.i.d. Consider oral anticoagulation were discussed bleeding is low History of Present Illness History of Present Illness Consult date/time: 02/09/24 11:42 Reason For Visit: Hematuria, Atrial fibrillation with RVR Narrative: 63 years old female patient presents to the hospital because of left flank pain. Pain was moderate to severe and was admitted. She was admitted for workup for possible stone versus urine tract infection. She has history of atrial fibrillation and has not been on oral anticoagulation. She has been subtle for the past that was discontinued and has been on diltiazem since then. She she has been receiving treatment for lower extremity bilateral lower extremity cellulitis for last month. She knows she has been having more frequent episodes of AFib. Since hospital admission patient was noted to have atrial fibrillation that is relatively controlled at rest increase significantly was walking to a heart rate up to 180 beats per minute. 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 Moderate tricuspid valve regurgitation Morbid obesity with BMI of 60.0-69.9, adult Paroxysmal atrial fibrillation Severe mitral valve regurgitation Surgical History Surgical History (Updated 02/09/24 @ 04:36 by Isabel Welch DO) History of total abdominal hysterectomy and bilateral salpingo-oophorectomy (2011) Family History Family History (Updated 02/09/24 @ 04:37 by Isabel Welch DO) Mother CKD (chronic kidney disease), Onset Age: 18 Glomerular nephritis Father Lung cancer Sibling Non-Hodgkin lymphoma Recurrent kidney stones Social History Social History (Updated 02/09/24 @ 04:39 by Isabel Welch DO) Social History: Surrogate medical decision maker: Kishan Forrester, brother. Code status: DNR/DNI Smoking status: Never smoker Second hand tobacco smoke exposure: No Alcohol intake: never Substance use: never Do You Feel Safe in your Home?: Yes Lack of Transportation: No Lack of Food: Never True Current Housing: I Have Housing Concerned About Future Housing: No Difficulty Paying Gas/Electric Bills: No Difficulty Paying for Meds: No Currently Unemployed: No Education: Master's Degree or Higher Difficulty w/ Childcare or Family Care: No Additional living arrangements comments: The patient lives in her own home in [place]. She has a boxer named Dana. She does not have any children. 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: No Meds Home Medications and Allergies Home Medications Medication Instructions Recorded Confirmed Type diltiazem HCl 240 mg 240 mg PO QAM #30 caps 01/17/24 02/09/24 Rx capsule,extended release 24 hr, controlled multivit with minerals-iron 18 1 tablet PO DAILY 02/09/24 02/09/24 History mg-folic ac 400 mcg-vit K 25 mcg tablet (Adults Multivitamin) Allergies Allergy/AdvReac Type Severity Reaction Status Date / Time codeine Allergy Unknown Other Verified 02/08/24 19:03 diazepam Allergy Unknown Other Verified 02/08/24 19:03 Vital Signs Vital Signs - 24 hr 02/08/24 16:55 02/08/24 19:02 02/08/24 19:16 Temperature 36.6 C Pulse Rate 108 H 156 H 169 H Respiratory Rate
--- NOTE | 2024-02-09 13:00 | PC.NURSE ---
Updated patient and visitor on plan of care per Dr. Lerma. Reviewed fall precautions with patient and reason external catheter was placed on patient.
--- NOTE | 2024-02-09 16:45 | PC.NURSE ---
RN and CCT to bedside. Patient continues to refuse basic perineal care including external catheter care.
--- NOTE | 2024-02-09 20:07 | PCRCNOTE ---
Pt refusing apnea link this evening. Pt stated that she had an apnea link study last time she was here and doesn't want to do it again. RN aware.
[2024-02-09] MEDS: METOPROLOL TARTRATE 25 MG TABLET PO (20:18)
[2024-02-09] MEDS: dilTIAZem 100 MG/100 ML 100 MG/100 ML BAG IV CONT (20:19)
--- NOTE | 2024-02-09 23:40 | PC.NURSE ---
After receiving po metoprolol and with diltiazem drip at 5mg/hr, pt able to ambulate to BR with elevation in HR to only mid 150's.
[2024-02-10] VITALS (22 sets, daily range): BP systolic 94–118; BP diastolic 57–69; PULSE 74–105; RESP 16–20; TEMP 36.7–37.3; O2SAT 94–96
[2024-02-10] MEDS: SODIUM CHLORIDE 0.9% IV 1,000 ML 100 ML IV CONT ×3 (02:03→21:26)
--- NOTE | 2024-02-10 07:48 | WPDUROPN2 ---
Progress Note: A&P Assessment and Plan (1) Gross hematuria: Code(s): R31.0 - Gross hematuria Status: Acute Assessment and Plan: Resolved. Etiology unknown. Question if she passed a stone. Will sign off. Outpatient follow-up (2) Left flank pain: Code(s): R10.9 - Unspecified abdominal pain Status: Acute Assessment and Plan: Resolved Subjective Subjective Date/Time Seen: 02/10/24 07:48 Interval history: She states hematuria has resolved. There is no flank pain or nausea. No urologic complaints at this time Exam Narrative: Obese No acute distress Is using an external urine collection device Objective Data Vital Signs Vital Signs: Vital Signs - 24 hr 02/09/24 08:00 02/09/24 08:00 02/09/24 08:00 Temperature Pulse Rate 90 96 Respiratory Rate Blood Pressure 103/63 Pulse Oximetry 96 Oxygen Delivery Room Air 02/09/24 09:57 02/09/24 10:00 02/09/24 10:00 Temperature Pulse Rate 110 H 102 H 102 H Respiratory Rate Blood Pressure 101/63 101/63 101/63 Pulse Oximetry Oxygen Delivery 02/09/24 10:00 02/09/24 11:36 02/09/24 12:00 Temperature 97.6 F Pulse Rate 102 H 108 H 98 Respiratory Rate 16 Blood Pressure 113/65 Pulse Oximetry 96 Oxygen Delivery 02/09/24 12:00 02/09/24 12:00 02/09/24 14:00 Temperature Pulse Rate 108 H 94 Respiratory Rate Blood Pressure 113/65 99/60 L Pulse Oximetry 97 Oxygen Delivery Room Air 02/09/24 14:00 02/09/24 14:00 02/09/24 16:00 Temperature 99 F Pulse Rate 94 94 86 Respiratory Rate 18 Blood Pressure 99/60 L 105/64 Pulse Oximetry 96 Oxygen Delivery 02/09/24 16:00 02/09/24 16:00 02/09/24 16:00 Temperature Pulse Rate 91 94 Respiratory Rate Blood Pressure 105/64 Pulse Oximetry 96 Oxygen Delivery Room Air 02/09/24 18:00 02/09/24 18:00 02/09/24 18:00 Temperature Pulse Rate 98 107 H 107 H Respiratory Rate Blood Pressure 103/68 103/68 Pulse Oximetry Oxygen Delivery 02/09/24 19:53 02/09/24 20:00 02/09/24 20:18 Temperature 98.8 F Pulse Rate 102 H 102 H 105 H Respiratory Rate 16 Blood Pressure 103/68 103/68 Pulse Oximetry 95 Oxygen Delivery 02/09/24 20:19 02/09/24 20:19 02/09/24 20:24 Temperature 98.8 F Pulse Rate 103 H 103 H 102 H Respiratory Rate 16 Blood Pressure 103/68 Pulse Oximetry 95 Oxygen Delivery 02/09/24 22:03 02/09/24 20:00 02/10/24 00:19 Temperature 98.0 F Pulse Rate 102 H 95 Respiratory Rate 20 Blood Pressure 111/67 110/61 Pulse Oximetry 94 Oxygen Delivery Room Air 02/10/24 00:00 02/09/24 20:00 02/09/24 22:00 Temperature Pulse Rate 106 H 105 H Respiratory Rate Blood Pressure Pulse Oximetry Oxygen Delivery Room Air 02/10/24 00:00 02/10/24 02:00 02/10/24 02:00 Temperature Pulse Rate 98 96 84 Respiratory Rate Blood Pressure 105/61 Pulse Oximetry Oxygen Delivery 02/10/24 04:15 02/10/24 04:00 02/10/24 04:00 Temperature 98.1 F Pulse Rate 89 84 Respiratory Rate 20 Blood Pressure 107/66 Pulse Oximetry 96 Oxygen Delivery Room Air 02/10/24 06:06 02/10/24 06:00 Temperature Pulse Rate 85 84 Respiratory Rate Blood Pressure 94/61 L Pulse Oximetry Oxygen Delivery Intake/Output Intake/Output: Intake & Output 02/07/24 02/08/24 02/09/24 02/10/24 23:59 23:59 23:59 23:59 Intake Total 1999 3051.9 465.3 Output Total 600 150 Balance 1999 2451.9 315.3 Meds/Results Medications: Active Medications Generic Name Dose Route Start Last Admin Trade Name Freq PRN Reason Stop Dose Admin Acetaminophen 650 mg 02/09/24 02:50 02/09/24 22:10 Acetaminophen 325 Mg Tablet PO 650 mg Q6H PRN Administration Mild Pain (1-3) or Fever Diltiazem HCl 240 mg 02/09/24 09:00 02/09/24 08:50 Diltiazem Hcl Cd 240 Mg Cap.24hr PO 240 mg QAM YONI Administration Enoxaparin So
[2024-02-10] MEDS: METOPROLOL TARTRATE 25 MG TABLET PO ×2 (08:28→21:26)
[2024-02-10] MEDS: ENOXAPARIN 40 MG/0.4 ML SYRINGE SUB-Q (08:28)
[2024-02-10] MEDS: MULTIVITAMINS /C LUTEIN (CENTRUM SILVER) TABLET *BKC 1 TAB PO (08:28)
[2024-02-10] MEDS: dilTIAZem HCL CD 240 MG CAP.24HR PO (08:29)
--- NOTE | 2024-02-10 09:00 | PM.PNCARD ---
Progress Note: A&P Assessment and Plan (1) Atrial fibrillation with rapid ventricular response: Code(s): I48.91 - Unspecified atrial fibrillation Status: Acute Assessment and Plan: Persistent atrial fibrillation now with RVR in the setting of pain, kidney stones, cellulitis. Rate control with diltiazem and metoprolol Rate better controlled with the addition of metoprolol D/c diltiazem gtt and up titrate metoprolol as need be [id number] score is 2. With newest guidelines, a/c not necessary in this situation unless she develops another risk factor. This was discussed again today. Continue telemetry Subjective Date/time seen: 02/10/24 09:00 Interval history: Cardiology follow up for atrial fibrillation Date of service 02/10/2024: She feels better today. Flank pain has resolved. Still has pain in her lower legs bilaterally. Denies any palpitations, shortness of breath, chest pain. Review of Systems Review of Systems: All systems reviewed & are unremarkable except as noted in HPI and below Exam Const: General: comfortable and no acute distress Other: Able to lie flat HENMT: Face/Nose/Sinus: Normal nares present and no epistaxis Mouth: Yes moist mucous membranes Eyes: Sclera: sclerae normal Pupils: Equal, round and reactive pupils present Neck: Neck: supple Carotids: no bruits Other: unable to assess for JVD due to body habitus Resp: Auscultation: clear to auscultation bilaterally and lung sounds not diminished Other: No chest wall tenderness Cardio: Rate: abnormal rate Rhythm: abnormal rhythm Heart sounds: no gallops, no murmurs and no rubs GI: Auscultation: normal bowel sounds Skin: General skin exam: normal color, erythema and wounds noted Other: bilateral LE edema and erythema, wounds. Neuro: Cranial nerves: Yes Equal, round and reactive pupils present Speech: normal speech Other: No obvious focal deficit or facial asymmetry Extrem: General: edema bilateral Other: Erythema both lower extremities Objective Data Vital Signs Vital Signs: Vital Signs - 24 hr 02/09/24 09:57 02/09/24 10:00 02/09/24 10:00 Temperature Pulse Rate 110 H 102 H 102 H Respiratory Rate Blood Pressure 101/63 101/63 101/63 Pulse Oximetry Oxygen Delivery 02/09/24 10:00 02/09/24 11:36 02/09/24 12:00 Temperature 36.4 C Pulse Rate 102 H 108 H 98 Respiratory Rate 16 Blood Pressure 113/65 Pulse Oximetry 96 Oxygen Delivery 02/09/24 12:00 02/09/24 12:00 02/09/24 14:00 Temperature Pulse Rate 108 H 94 Respiratory Rate Blood Pressure 113/65 99/60 L Pulse Oximetry 97 Oxygen Delivery Room Air 02/09/24 14:00 02/09/24 14:00 02/09/24 16:00 Temperature 37.2 C Pulse Rate 94 94 86 Respiratory Rate 18 Blood Pressure 99/60 L 105/64 Pulse Oximetry 96 Oxygen Delivery 02/09/24 16:00 02/09/24 16:00 02/09/24 16:00 Temperature Pulse Rate 91 94 Respiratory Rate Blood Pressure 105/64 Pulse Oximetry 96 Oxygen Delivery Room Air 02/09/24 18:00 02/09/24 18:00 02/09/24 18:00 Temperature Pulse Rate 98 107 H 107 H Respiratory Rate Blood Pressure 103/68 103/68 Pulse Oximetry Oxygen Delivery 02/09/24 19:53 02/09/24 20:00 02/09/24 20:18 Temperature 37.1 C Pulse Rate 102 H 102 H 105 H Respiratory Rate 16 Blood Pressure 103/68 103/68 Pulse Oximetry 95 Oxygen Delivery 02/09/24 20:19 02/09/24 20:19 02/09/24 20:24 Temperature 37.1 C Pulse Rate 103 H 103 H 102 H Respiratory Rate 16 Blood Pressure 103/68 Pulse Oximetry 95 Oxygen Delivery 02/09/24 22:03 02/09/24 20:00 02/10/24 00:19 Temperature 36.7 C Pulse Rate 102 H 95 Respiratory Rate 20 Blood Pressure 111/67 110/61 Pulse Oximetry 94 Oxygen Delivery Room Air 02/10/24 00:00 02/09/24 20:00 02/09/24 22:00 Temperature Pulse Rate 106 H 105 H Respiratory Rate Blood P
--- NOTE | 2024-02-10 11:04 | PM.IMPN ---
Progress Note: A&P Assessment and Plan (1) Abnormal finding on urinalysis: Code(s): R82.90 - Unspecified abnormal findings in urine Status: Acute (2) Acute kidney injury: Code(s): N17.9 - Acute kidney failure, unspecified Status: Acute (3) Leukocytosis: Qualifiers: Leukocytosis type: unspecified Qualified Code(s): D72.829 - Elevated white blood cell count, unspecified Code(s): D72.829 - Elevated white blood cell count, unspecified Status: Acute (4) Atrial fibrillation with rapid ventricular response: Code(s): I48.91 - Unspecified atrial fibrillation Status: Acute (5) Morbid obesity with BMI of 60.0-69.9, adult: Code(s): E66.01 - Morbid (severe) obesity due to excess calories; Z68.44 - Body mass index [BMI] 60.0-69.9, adult Status: Acute (6) 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 She was noted to be tachycardic and mildly hypertensive on presentation to the ER. EKG revealed AFib with RVR. Lab work revealed mild leukocytosis at 12.5 CMP unremarkable lactic acid was normal UA showed [address] abdomen pelvis could not be done due to her work KUB did not show any acute findings For atrial fibrillation with rapid ventricular rate she was given IV push diltiazem with decent control she was started on diltiazem drip Urology and cardiology was consulted. She has been placed on Rocephin for possible UTI. She was noted to have mild CARIDAD on presentation Her hematuria has resolved supportive treatment and hence plans to further workup as an outpatient basis. Renal ultrasound with mild left hydronephrosis. Diffuse mild bladder wall thickening which can be seen with chronic outlet obstruction neurogenic bladder cystitis. Cardiology plans to taper off Cardizem drip and stone oral metoprolol. Chronic lymphedema and/or venous insufficiency with chronic lower extremity wound, seems venous ulcers. Follows with wound care with dressing changes no signs of acute infection venous duplex 01/18 was negative for DVT. Echo 01/18 with moderate to severe MR moderate TR Morbid obesity Atrial fibrillation with history of ablation in the past. Has not been on oral anticoagulation. Moderate to severe mitral valve regurgitation she lied to follow-up with cardiology as an outpatient Moderate tricuspid regurgitation Code status DNR Subjective Date/time seen: 02/10/24 11:04 Interval history: No overnight events. Remains on Cardizem drip. Blood pressure borderline discussed with Cardiology plan to taper off Cardizem drip she used to be on sotalol history of ablation in the past. Leg wound ongoing since November has lower extremity swelling she tries to elevate her legs Review of Systems Review of Systems: All systems reviewed & are unremarkable except as noted in HPI and below Exam Narrative: ?GENERAL:? morbidly obese.? Resting comfortably. HEAD: Normocephalic, atraumatic. EYES: PERRLA and EOMI. ENT: Nares clear, no rhinorrhea or epistaxis.? Mucous membranes moist. NECK: Supple.? No adenopathy or masses.? CHEST: No respiratory distress. Clear to auscultation. No wheezes rales or rhonchi HEART: Regular rate and rhythm.? No murmur heard.? Normal peripheral pulses. ABDOMEN:? Soft nontender MSK: Normal range of motion.? Bilateral lower extremity edema with ulceration noted in her buenrostro bilaterally SKIN: Warm, dry, no rash. NEURO: Alert and oriented x3. No focal deficits.? PSYCH: Normal mood and affect. Objective Data Vital Signs Vital Signs: Vital Signs - 24 hr 02/09/24 11
[2024-02-10] MEDS: ACETAMINOPHEN 325 MG TABLET 650 MG PO ×2 (12:47→23:01)
--- NOTE | 2024-02-10 21:29 | PCRCNOTE ---
Patient refuses apnea link this evening. Patient states she had one completed at her last admission and would not like to complete another one. Nurse is aware.
[2024-02-11] VITALS (14 sets, daily range): BP systolic 99–111; BP diastolic 56–71; PULSE 73–104; RESP 18–28; TEMP 36.4–36.8; O2SAT 92–97
[2024-02-11 04:35] LABS: Basophils Absolute Auto 0.1 K/mm3 (0.0-0.1); Basophils Percent Auto 0.6 % (0.2-1.2); Eosinophils Absolute Auto 0.2 K/mm3 (0-0.3); Hematocrit 32.8 % (37.0-47.0); Hemoglobin 10.5 g/dL (12.0-15.0); Immature Granulocyte Absolute 0.06 K/mm3 (0.00-0.031); Immature Granulocyte Percent A 0.6 % (0-0.5); Lymphocytes Absolute Auto 1.08 K/mm3 (0.9-3.2); Lymphocytes Percent Auto 10.5 % (18.3-44.2); Mean Corpuscular Hemoglobin 31.3 pg (26-34); Mean Corpuscular Volume 97.9 fl (80-100); Mean Platelet Volume 9.7 fl (7.4-10.4); Monocytes Absolute Auto 0.8 K/mm3 (0.1-0.6); Monocytes Percent Auto 7.7 % (2.6-8.5); Neutrophils Absolute Auto 8.1 K/mm3 (1.3-6.7); Neutrophils Percent Auto 78.6 % (45.5-73.1); Platelet Count Result 241 k/mm3 (150-375); Red Blood Count 3.35 M/mm3 (4.2-5.4); Red Cell Distribution Width 15.9 % (11.5-14.5); White Blood Count 10.3 K/mm3 (4.5-10.0)
[2024-02-11 07:22] LABS: Alanine Aminotransferase 13 U/L (6-35); Albumin Level 3.2 g/dL (3.5-5.1); Alkaline Phosphatase 94 U/L (38-126); Anion Gap 8 mmol/L (4-12); Aspartate Amino Transferase 29 U/L (14-36); Bilirubin,Total 1.1 mg/dL (0.2-1.3); Blood Urea Nitrogen 20 mg/dL (7-17); Calcium 8.5 mg/dL (8.4-10.2); Carbon Dioxide 19 mmol/L (22-30); Chloride 112 mmol/L (98-107); Estimated CRCL calculation 92 ml/min; Estimated Glomerular Filt Rate > 60; Glucose 114 mg/dL (65-110); Magnesium 2.2 mg/dL (1.6-2.3); Potassium 3.7 mmol/L (3.4-5.0); Sodium 139 mmol/L (137-145)
--- NOTE | 2024-02-11 08:06 | PM.PNCARD ---
Progress Note: A&P Assessment and Plan (1) Atrial fibrillation with rapid ventricular response: Code(s): I48.91 - Unspecified atrial fibrillation Status: Acute Assessment and Plan: Persistent atrial fibrillation now with RVR in the setting of pain, kidney stones, cellulitis. Diltiazem gtt d/c'd 02/10/24 Rate control with diltiazem and metoprolol [id number] score is 2. With newest guidelines, a/c not necessary in this situation unless she develops another risk factor. This was discussed again today. Continue telemetry Cardiology will follow along on an as needed basis. Please call with questions. Subjective Date/time seen: 02/11/24 08:06 Interval history: Cardiology follow up for atrial fibrillation Date of service 02/10/2024: She feels better today. Flank pain has resolved. Still has pain in her lower legs bilaterally. Denies any palpitations, shortness of breath, chest pain. Date of service 02/11/2024: Doing better today. Rate remains well controlled. Review of Systems Review of Systems: All systems reviewed & are unremarkable except as noted in HPI and below Exam Const: General: comfortable and no acute distress Other: Able to lie flat HENMT: Face/Nose/Sinus: Normal nares present and no epistaxis Mouth: Yes moist mucous membranes Eyes: Sclera: sclerae normal Pupils: Equal, round and reactive pupils present Neck: Neck: supple and no JVD Carotids: no bruits Other: unable to assess for JVD due to body habitus Resp: Auscultation: clear to auscultation bilaterally and lung sounds not diminished Other: No chest wall tenderness Cardio: Rate: regular rate Rhythm: abnormal rhythm Heart sounds: no gallops, no murmurs and no rubs GI: Auscultation: normal bowel sounds Skin: General skin exam: normal color, rashes and/or lesions noted, erythema and wounds noted Wounds: wounds noted Other: bilateral LE edema and erythema, wounds. Neuro: Cranial nerves: Yes Equal, round and reactive pupils present Speech: normal speech Other: No obvious focal deficit or facial asymmetry Extrem: General: edema bilateral Other: Erythema both lower extremities Objective Data Vital Signs Vital Signs: Vital Signs - 24 hr 02/10/24 08:28 02/10/24 09:35 02/10/24 10:00 Temperature Pulse Rate 100 89 78 Respiratory Rate Blood Pressure Pulse Oximetry Oxygen Delivery 02/10/24 11:34 02/10/24 12:00 02/10/24 12:00 Temperature 37.3 C Pulse Rate 76 74 Respiratory Rate 20 Blood Pressure 105/69 Pulse Oximetry 95 Oxygen Delivery Room Air 02/10/24 15:38 02/10/24 14:00 02/10/24 16:00 Temperature 37.3 C Pulse Rate 83 82 94 Respiratory Rate 20 Blood Pressure 108/64 Pulse Oximetry 94 Oxygen Delivery 02/10/24 16:00 02/10/24 18:00 02/10/24 20:22 Temperature 37.1 C Pulse Rate 78 105 H Respiratory Rate 16 Blood Pressure 118/63 Pulse Oximetry 95 Oxygen Delivery Room Air 02/10/24 21:26 02/11/24 00:18 02/10/24 20:00 Temperature 36.4 C Pulse Rate 91 95 103 H Respiratory Rate 21 H Blood Pressure 111/66 Pulse Oximetry 92 Oxygen Delivery 02/10/24 22:00 02/11/24 00:00 02/10/24 20:00 Temperature Pulse Rate 85 94 Respiratory Rate Blood Pressure Pulse Oximetry Oxygen Delivery Room Air 02/11/24 00:00 02/11/24 02:00 02/11/24 04:00 Temperature Pulse Rate 78 83 Respiratory Rate Blood Pressure Pulse Oximetry Oxygen Delivery Room Air 02/11/24 04:00 02/11/24 04:00 02/11/24 06:00 Temperature 36.8 C Pulse Rate 86 73 Respiratory Rate 19 Blood Pressure 99/56 L Pulse Oximetry 95 Oxygen Delivery Room Air Intake/Output Intake/Output: Intake & Output 02/08/24 02/09/24 02/10/24 02/11/24 23:59 23:59 23:59 23:59 Intake Total 1999 3101.9 5114.4 350 Output Total 600 300 Balance 1999 2501.9 4814.4 350 Meds/Results M
[2024-02-11] MEDS: SODIUM CHLORIDE 0.9% IV 1,000 ML 100 ML IV CONT (08:34)
[2024-02-11] MEDS: dilTIAZem HCL CD 240 MG CAP.24HR PO (09:52)
[2024-02-11] MEDS: MULTIVITAMINS /C LUTEIN (CENTRUM SILVER) TABLET *BKC 1 TAB PO (09:52)
[2024-02-11] MEDS: METOPROLOL TARTRATE 25 MG TABLET PO ×2 (09:52→20:27)
[2024-02-11] MEDS: ENOXAPARIN 40 MG/0.4 ML SYRINGE SUB-Q (09:53)
--- NOTE | 2024-02-11 10:21 | PCPTNOTE ---
Spoke with hospitalist, Janneth Mensah APRN, who is OK with removal of bedrest orders for pt. Will make RN aware.
--- NOTE | 2024-02-11 15:02 | P.PNIM_ITS ---
Progress Note: A&P Assessment and Plan (1) UTI (urinary tract infection): Code(s): N39.0 - Urinary tract infection, site not specified Status: Acute Assessment and Plan: 02/11/2024: * UA shown 1+ protein, trace ketone, 3+ urine blood, 1+ urine bili, trace leukocytes, greater than 100 urine RBCs * Urine culture showing E coli which is pansensitive * Currently on Rocephin, Will switch to oral cefdinir today * Urology was consulted and following * Renal ultrasound was essentially normal * Will likely need outpatient cystoscopy in the near future. We were unable to get a CT scan here in [place] due to a body habitus and we are currently limited. * Hematuria resolving, urology feels that she may have passed a stone (2) Gross hematuria: Code(s): R31.0 - Gross hematuria Status: Acute Assessment and Plan: See above plan of care (3) Left flank pain: Code(s): R10.9 - Unspecified abdominal pain Status: Acute Assessment and Plan: See above plan of care (4) Atrial fibrillation with rapid ventricular response: Code(s): I48.91 - Unspecified atrial fibrillation Status: Acute Assessment and Plan: 02/11/2024: * Patient has history of AFib * EKG shown AFib with RVR with a rate of 148, right bundle branch block * Currently in AFib in the 80s to 90s however when she is up moving around her heart rate goes up to 120s * Continue with cardiac monitoring * Continue metoprolol and diltiazem * Patient does not appear to be on any blood thinners * Cardiology was consulted and following * Echo from 01/09/2024 was reviewed and shown normal LV systolic function with an estimated EF of 50-55%, normal RV systolic function, moderate to severe mitral regurgitation, moderate tricuspid regurgitation. (5) Morbid obesity with BMI of 60.0-69.9, adult: Code(s): E66.01 - Morbid (severe) obesity due to excess calories; Z68.44 - Body mass index [BMI] 60.0-69.9, adult Status: Chronic Assessment and Plan: 02/11/2024: * BMI 65.9, 163.5 kg * Dietitian consulted * Patient's weight fluctuates due to fluid shifts * Ensure compact b.i.d. 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: Code(s): I89.0 - Lymphedema, not elsewhere classified; R60.9 - Edema, unspecified Status: Chronic Assessment and Plan: 02/11/2024: * Bilateral lower extremity lymphedema with chronic wounds * 4+ pitting * Lymphedema wraps ordered (7) Wounds, multiple: Code(s): T07.XXXA - Unspecified multiple injuries, initial encounter Status: Chronic Assessment and Plan: 02/11/2024: * See pictures in chart * Wound consulted Time Spent With Patient Time with patient: Greater than 35 minutes Subjective Date/time seen: 02/11/24 15:02 Interval history: This is a 63-year-old female presented to the hospital on 02/08/2024 with left flank pain and blood in the urine. Workup in the hospital included Abdominal x- ray showing normal gas pattern. Renal ultrasound showing mild left hydronephrosis, diffuse mild bladder with wall thickening which can be seen with chronic outlet obstruction versus cystitis. Initial labs showed a white blood cell count of 12.5, creatinine 1.1 a, lactic acid was 1 point night, total bili was 1.5, liver enzymes are normal, lipase was 118, pro count was 0.1. UA was performed which showed 1+ urine protein, trace ketones, 3+ urine blood, 1+ urine bili, trace leukocytes, greater than 100 urine RBCs, and yeast was present. Blood cultures are showing no growth on preliminary read. Urine culture showing E col
--- NOTE | 2024-02-11 15:02 | PM.IMPN ---
Progress Note: A&P Assessment and Plan (1) UTI (urinary tract infection): Code(s): N39.0 - Urinary tract infection, site not specified Status: Acute Assessment and Plan: 02/11/2024: UA shown 1+ protein, trace ketone, 3+ urine blood, 1+ urine bili, trace leukocytes, greater than 100 urine RBCs Urine culture showing E coli which is pansensitive Currently on Rocephin, Will switch to oral cefdinir today Urology was consulted and following Renal ultrasound was essentially normal Will likely need outpatient cystoscopy in the near future. We were unable to get a CT scan here in [place] due to a body habitus and we are currently limited. Hematuria resolving, urology feels that she may have passed a stone (2) Gross hematuria: Code(s): R31.0 - Gross hematuria Status: Acute Assessment and Plan: See above plan of care (3) Left flank pain: Code(s): R10.9 - Unspecified abdominal pain Status: Acute Assessment and Plan: See above plan of care (4) Atrial fibrillation with rapid ventricular response: Code(s): I48.91 - Unspecified atrial fibrillation Status: Acute Assessment and Plan: 02/11/2024: Patient has history of AFib EKG shown AFib with RVR with a rate of 148, right bundle branch block Currently in AFib in the 80s to 90s however when she is up moving around her heart rate goes up to 120s Continue with cardiac monitoring Continue metoprolol and diltiazem Patient does not appear to be on any blood thinners Cardiology was consulted and following Echo from 01/09/2024 was reviewed and shown normal LV systolic function with an estimated EF of 50-55%, normal RV systolic function, moderate to severe mitral regurgitation, moderate tricuspid regurgitation. (5) Morbid obesity with BMI of 60.0-69.9, adult: Code(s): E66.01 - Morbid (severe) obesity due to excess calories; Z68.44 - Body mass index [BMI] 60.0-69.9, adult Status: Chronic Assessment and Plan: 02/11/2024: BMI 65.9, 163.5 kg Dietitian consulted Patient's weight fluctuates due to fluid shifts Ensure compact b.i.d. 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: Code(s): I89.0 - Lymphedema, not elsewhere classified; R60.9 - Edema, unspecified Status: Chronic Assessment and Plan: 02/11/2024: Bilateral lower extremity lymphedema with chronic wounds 4+ pitting Lymphedema wraps ordered (7) Wounds, multiple: Code(s): T07.XXXA - Unspecified multiple injuries, initial encounter Status: Chronic Assessment and Plan: 02/11/2024: See pictures in chart Wound consulted Time Spent With Patient Time with patient: Greater than 35 minutes Subjective Date/time seen: 02/11/24 15:02 Interval history: This is a 63-year-old female presented to the hospital on 02/08/2024 with left flank pain and blood in the urine. Workup in the hospital included Abdominal x-ray showing normal gas pattern. Renal ultrasound showing mild left hydronephrosis, diffuse mild bladder with wall thickening which can be seen with chronic outlet obstruction versus cystitis. Initial labs showed a white blood cell count of 12.5, creatinine 1.1 a, lactic acid was 1 point night, total bili was 1.5, liver enzymes are normal, lipase was 118, pro count was 0.1. UA was performed which showed 1+ urine protein, trace ketones, 3+ urine blood, 1+ urine bili, trace leukocytes, greater than 100 urine RBCs, and yeast was present. Blood cultures are showing no growth on preliminary read. Urine culture showing E coli on final read which is pansensitive. Last echo was reviewed 01/09/2024 showing LV systolic function normal with an estimated EF of 50-55%, moderate tricuspid valve regurgitation normal, moderate to severe mitral valve regurgitation RV systolic function. Patient was given pain medication and nausea medication while in the ED. urology and Cardiology were consulted. Patient was started Rocephin.
[2024-02-12] VITALS (10 sets, daily range): BP systolic 105–110; BP diastolic 62–74; PULSE 78–97; RESP 16–22; TEMP 36.4–36.6; O2SAT 94–98
[2024-02-12] MEDS: ACETAMINOPHEN 325 MG TABLET 650 MG PO (06:45)
[2024-02-12 07:55] LABS: Basophils Absolute Auto 0.1 K/mm3 (0.0-0.1); Basophils Percent Auto 0.9 % (0.2-1.2); Eosinophils Absolute Auto 0.4 K/mm3 (0-0.3); Eosinophils Percent Auto 5.2 % (0-4.4); Hematocrit 35.1 % (37.0-47.0); Hemoglobin 11.1 g/dL (12.0-15.0); Immature Granulocyte Absolute 0.04 K/mm3 (0.00-0.031); Immature Granulocyte Percent A 0.5 % (0-0.5); Lymphocytes Absolute Auto 1.24 K/mm3 (0.9-3.2); Lymphocytes Percent Auto 16.3 % (18.3-44.2); Mean Corpuscular HGB Conc 31.6 g/dl (32-36); Mean Corpuscular Hemoglobin 30.7 pg (26-34); Mean Platelet Volume 9.6 fl (7.4-10.4); Monocytes Absolute Auto 0.6 K/mm3 (0.1-0.6); Monocytes Percent Auto 8.4 % (2.6-8.5); Neutrophils Absolute Auto 5.2 K/mm3 (1.3-6.7); Neutrophils Percent Auto 68.7 % (45.5-73.1); Platelet Count Result 285 k/mm3 (150-375); Red Blood Count 3.62 M/mm3 (4.2-5.4); Red Cell Distribution Width 15.7 % (11.5-14.5); White Blood Count 7.6 K/mm3 (4.5-10.0)
[2024-02-12] MEDS: ENOXAPARIN 40 MG/0.4 ML SYRINGE SUB-Q (08:03)
[2024-02-12] MEDS: MULTIVITAMINS /C LUTEIN (CENTRUM SILVER) TABLET *BKC 1 TAB PO (08:03)
[2024-02-12] MEDS: dilTIAZem HCL CD 240 MG CAP.24HR PO (08:03)
[2024-02-12] MEDS: METOPROLOL TARTRATE 25 MG TABLET PO (08:04)
[2024-02-12 08:05] LABS: Alanine Aminotransferase 12 U/L (6-35); Albumin Level 3.4 g/dL (3.5-5.1); Alkaline Phosphatase 111 U/L (38-126); Anion Gap 5 mmol/L (4-12); Aspartate Amino Transferase 20 U/L (14-36); Blood Urea Nitrogen 19 mg/dL (7-17); Calcium 8.8 mg/dL (8.4-10.2); Carbon Dioxide 22 mmol/L (22-30); Chloride 110 mmol/L (98-107); Estimated CRCL calculation 92 ml/min; Estimated Glomerular Filt Rate > 60; Glucose 91 mg/dL (65-110); Potassium 3.6 mmol/L (3.4-5.0); Sodium 137 mmol/L (137-145)
--- NOTE | 2024-02-12 11:37 | PM.PNCARD ---
Progress Note: A&P Assessment and Plan (1) Atrial fibrillation with rapid ventricular response: Code(s): I48.91 - Unspecified atrial fibrillation Status: Acute Assessment and Plan: Persistent atrial fibrillation now with RVR in the setting of pain, kidney stones, cellulitis. Diltiazem gtt d/c'd 02/10/24 Rate control with diltiazem and metoprolol In my opinion she has a chads Vasc score of 3. This is based upon age, gender and heart failure. She does have moderate to severe mitral regurgitation and a low ejection fraction given the severity of her mitral regurgitation and therefore a cardiomyopathy which is equivalent to heart failure as another risk factor. She should be anticoagulated in my opinion. She has severe left atrial enlargement also. Will start her on Xarelto 20 mg daily. Continue telemetry Continue rate control (2) Edema of both legs: Code(s): R60.0 - Localized edema Status: Acute Assessment and Plan: She has significant lower extremity edema. Furosemide 40 mg IV x1 (3) Electrolyte abnormality: Code(s): E87.8 - Other disorders of electrolyte and fluid balance, not elsewhere classified Status: Acute Assessment and Plan: KCL 40 mEq p.o. x1 (4) Morbid obesity with BMI of 50.0-59.9, adult: Code(s): E66.01 - Morbid (severe) obesity due to excess calories; Z68.43 - Body mass index [BMI] 50.0-59.9, adult Status: Acute Assessment and Plan: Dietary and lifestyle modification for weight loss (5) Nonrheumatic mitral valve regurgitation: Code(s): I34.0 - Nonrheumatic mitral (valve) insufficiency Status: Acute Assessment and Plan: Moderate to severe Subjective Date/time seen: 02/12/24 11:37 Interval history: Cardiology follow up for atrial fibrillation Date of service 02/10/2024: She feels better today. Flank pain has resolved. Still has pain in her lower legs bilaterally. Denies any palpitations, shortness of breath, chest pain. Date of service 02/12/2024: Wants to go home. Has significant lower extremity edema. No chest pain or shortness of breath Review of Systems Constitutional: Constitutional: Denies body ache(s) Cardiovascular: Cardiovascular: Denies chest pain and Reports leg edema Exam Narrative: Awake alert oriented appears stated age Const: General: comfortable and no acute distress Other: Able to lie flat HENMT: Face/Nose/Sinus: Normal nares present and no epistaxis Mouth: Yes moist mucous membranes Eyes: General: appearance normal, both eyes and all related structures Sclera: sclerae normal Neck: Neck: supple and no JVD Carotids: no bruits Other: unable to assess for JVD due to body habitus Resp: Auscultation: clear to auscultation bilaterally and lung sounds not diminished Other: No chest wall tenderness Cardio: Rate: regular rate Rhythm: abnormal rhythm and abnormal rhythm irregularly irregular Heart sounds: no gallops, no murmurs and no rubs GI: Auscultation: normal bowel sounds Skin: General skin exam: normal color, rashes and/or lesions noted, erythema and wounds noted Wounds: wounds noted Other: bilateral LE edema and erythema, wounds. Neuro: Speech: normal speech Other: No obvious focal deficit or facial asymmetry Extrem: General: edema bilateral Other: Erythema both lower extremities Psych: Mental Status: mental status grossly normal Objective Data Vital Signs Vital Signs: Vital Signs - 24 hr 02/11/24 11:53 02/11/24 12:00 02/11/24 12:00 Temperature 36.6 C Pulse Rate 87 Respiratory Rate 28 H Blood Pressure 103/64 Pulse Oximetry 96 Oxygen Delivery Room Air Room Air 02/11/24 12:00 02/11/24 14:00 02/11/24 16:00 Temperature Pulse Rate 95 80 86 Respiratory Rate Blood Pressure Pulse Oximetry Oxygen Delivery 02/11/24 16:00 02/11/24 19:36 02/11/24 20:27 Temperature 36.7 C
--- NOTE | 2024-02-12 12:16 | PM.DS ---
DS: Admitting Diagnosis Discharge Date 02/12/24 Admitting Diagnosis Abnormal Findings urinalysis Acute kidney injury Leukocytosis AFib with RVR Morbid obesity Lymphedema Multiple wounds DS: Discharge Diagnosis Discharge Diagnosis (1) UTI (urinary tract infection): Code(s): N39.0 - Urinary tract infection, site not specified Status: Acute (2) Gross hematuria: Code(s): R31.0 - Gross hematuria Status: Acute (3) Left flank pain: Code(s): R10.9 - Unspecified abdominal pain Status: Acute (4) Atrial fibrillation with rapid ventricular response: Code(s): I48.91 - Unspecified atrial fibrillation Status: Acute (5) Morbid obesity with BMI of 60.0-69.9, adult: Code(s): E66.01 - Morbid (severe) obesity due to excess calories; Z68.44 - Body mass index [BMI] 60.0-69.9, adult Status: Chronic (6) 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 Workup in the hospital included Abdominal x-ray showing normal gas pattern.? Renal ultrasound showing mild left hydronephrosis, diffuse mild bladder with wall thickening which can be seen with chronic outlet obstruction versus cystitis.? Initial labs showed a white blood cell count of 12.5, creatinine 1.1 a, lactic acid was 1 point night, total bili was 1.5, liver enzymes are normal, lipase was 118, pro count was 0.1.? UA was performed which showed 1+ urine protein, trace ketones, 3+ urine blood, 1+ urine bili, trace leukocytes, greater than 100 urine RBCs, and yeast was present.? Blood cultures are showing no growth on preliminary read.? Urine culture showing E coli on final read which is pansensitive.? Last echo was reviewed 01/09/2024 showing LV systolic function normal with an estimated EF of 50-55%, moderate tricuspid valve regurgitation normal, moderate to severe mitral valve regurgitation RV systolic function.? Patient was given pain medication and nausea medication while in the ED. urology and Cardiology were consulted.? Patient was started Rocephin.? Last apnea link was reviewed as well which was performed on 01/10/2024 which showed an AHI of 7.1, [place] of 10.4.? On exam today patient states she is feeling much better.? She is still in AFib which is chronic for her.? At rest her heart rate is in the 80s to 90s, whenever she is up moving around her heart rate gets up to 120.? Patient states she has a long history of these bouts of AFib where her heart rate goes up and she contributes that to be around the same time of hormone changes.? She tried getting workup with an border measurer and cutter however was unable to get in when she was actually having the symptoms at the same time.? I will discuss with Case coordination to see if we can find a new border measurer and cutter for her before discharge.? She denies any fever, chills, nausea, vomiting, diarrhea, abdominal pain, chest pain, shortness a breath. 01/12/24: Patient denies any new complaints today. Labs today show a hemoglobin of 11.1, otherwise essentially normal. Patient is stable for discharge at this time. She will continue on metoprolol, Xarelto, Cardizem for her atrial fibrillation. She will need to follow up with Cardiology in 2 weeks. She also was found to have a urinary tract infection and was thought to possibly passed a stone which was causing her hematuria. She was started on Rocephin and switched over to cefdinir oral today and she will need to finish his antibiotic
[2024-02-12] MEDS: CEFDINIR 300 MG CAPSULE PO (12:35)
--- NOTE | 2024-02-18 08:30 | PC.NURSE ---
Blood cx are negative.
== END 2024-02-12 14:13 | disposition home or self-care (01) ==
LOC: ANHED 23:27 → ANHIMU 02-09 00:28
PROVIDERS: Internal Medicine; Nurse Practitioner Acute Care; Admitting Provider Internal Medicine; Emergency Provider Physician Assistant; PCP Family Medicine; Visit Provider Family Medicine
DX: N39.0 Urinary tract infection, site not specified (principal); B96.20 Unspecified Escherichia coli [E. coli] as the cause of diseases classified elsewhere; R31.0 Gross hematuria; N17.9 Acute kidney failure, unspecified; I48.91 Unspecified atrial fibrillation; E66.01 Morbid (severe) obesity due to excess calories; Z68.44 Body mass index [BMI] 60.0-69.9, adult; L97.909 Non-pressure chronic ulcer of unspecified part of unspecified lower leg with unspecified severity; L03.116 Cellulitis of left lower limb; L03.115 Cellulitis of right lower limb; R60.0 Localized edema; I89.0 Lymphedema, not elsewhere classified; E87.8 Other disorders of electrolyte and fluid balance, not elsewhere classified; N13.30 Unspecified hydronephrosis; R53.83 Other fatigue; I08.1 Rheumatic disorders of both mitral and tricuspid valves; Z90.710 Acquired absence of both cervix and uterus; Z66 Do not resuscitate; Z79.899 Other long term (current) drug therapy; Z85.41 Personal history of malignant neoplasm of cervix uteri; Z84.1 Family history of disorders of kidney and ureter
CPT/HCPCS: 36415; 74018; 76775; 80048; 80053; 81001; 83605; 83690; 83735; 84145; 85025; 85027; 85610; 85730; 87040; 87077; 87086; 87088; 87186; 93005; 96361; 96365; 96366; 96372; 96375; 96376; 97161; 97165; 99285; A9270; G0378; J0696; J1650; J7030

== ENCOUNTER 2024-04-11 15:34 | Inpatient (IN) | payer MEDICARE, SELFPAY ==
[2024-04-11] VITALS (15 sets, daily range): BP systolic 105–131; BP diastolic 73–95; PULSE 99–143; RESP 13–37; TEMP 36.1–37.1; O2SAT 93–97; BMI 59.1
--- NOTE | ~2024-04-11 | XR_ITS ---
XR chest PICC line Ordering provider: Maribel Siddiqui APRN History: 63 years Female with . PICC line placement . Comparison: April 11, 2024 FINDINGS: MEDIASTINUM: The cardiac silhouette is slightly enlarged. Congestive delfino. LUNGS: No pneumothorax. Opacification in the left lung base suggestive of atelectasis versus pneumoni a. Pleural effusion cannot be excluded. Prominent markings in the right lung base. OTHER: No free air under the diaphragm. Degenerative changes of the spine. IMPRESSION: Left basal atelectasis versus pneumonia. Left Minimal effusion is not excluded. Reviewed, dictated and finalized at location A. IMPRESSION: Left basal atelectasis versus pneumonia. Left Minimal effusion is not excluded .
--- NOTE | ~2024-04-11 | US_ITS ---
Abdominal wall ULTRASOUND (Doppler ultrasound interrogation techniques used as needed for this exam.) Ordering provider: Maribel Siddiqui APRN History: . pannus, assess for necrotizing fasciitis . Comparison: None. FINDINGS/impression: No definite abnormality seen. The subcutaneous fat is normal in echogenicity. Reviewed, dictated and finalized at location A.
--- NOTE | ~2024-04-11 | US_ITS ---
EXAMINATION: US venous doppler [facility] DATE: 04/12/2024 17:59 INDICATION: Lower limb edema. TECHNIQUE: Grayscale ultrasound images without and with compression and Doppler ultrasound images of the bilateral lower extremity veins were obtained. COMPARISON: Ultrasound 01/08/2024 FINDINGS: The visualized portions of right common femoral vein, profunda (deep) femoral vein, femoral vein, pop liteal vein, and greater saphenous vein outflow are patent. The calf veins are not well visualized. The visualized portions of left common femoral vein, profunda femoral vein, femoral vein, popliteal v ein, and greater saphenous vein outflow are patent. The calf veins are not well visualized. IMPRESSION: 1. No deep venous thrombosis. Reviewed, dictated and finalized at location E.
--- NOTE | ~2024-04-11 | US_ITS ---
EXAMINATION: US renal BI DATE: 04/13/2024 16:51 INDICATION: Elevated creatinine. Urinary tract infection. Prior nephrolithiasis. TECHNIQUE: Multiple ultrasound grayscale images of the kidneys were obtained. COMPARISON: None. FINDINGS: The right kidney measures 11.8 x 5.6 x 6.3 cm. The left kidney measures 10.4 x 5.8 x 4.8 cm. The kidn eys demonstrate normal echogenicity. There is no hydronephrosis in either kidney. No stones identifi ed. The bladder is partially decompressed which limits evaluation. Appears be a small amount of ascit es in the pelvis. IMPRESSION: 1. Normal kidneys without hydronephrosis. 2. Possible small amount of ascites in the pelvis. Reviewed, dictated and finalized at location A.
--- NOTE | ~2024-04-11 | CT_ITS ---
CT brain wo con Ordering provider: Jennifer Orellana PA-C History: 63 years Female with . AMS . Comparison: None. Technique: CT of the head without contrast. FINDINGS: BRAIN PARENCHYMA AND CSF SPACES: No midline shift, mass effect or hemorrhage. The brain parenchyma a nd CSF spaces are otherwise normal. The posterior fossa cannot be properly evaluated due to artifacts . VISUALIZED PARANASAL SINUSES: Bilateral ethmoid and frontal sinus disease. Right maxillary sinus dise ase. MASTOIDS: Well aerated. BONES: No definite bony fracture. SOFT TISSUES: Visualized nasopharynx is normal. Subgaleal Hematoma in the both frontal scalp and bot h parieto-occipital scalp. Otherwise, Superficial soft tissues are normal. Air is seen in the area posterior to the right maxillary sinus and the temporal soft tissue area. The re is also seen anterior to the right maxillary sinus. IMPRESSION: No acute intracranial findings. Huge scalp hematoma involving the posterior frontal, parietal and occipital scalp. Reviewed, dictated and finalized at location A. IMPRESSION: No acute intracranial findings. Huge scalp hematoma involving the posterior frontal, parietal and occipital sca lp.
--- NOTE | ~2024-04-11 | XR_ITS ---
EXAMINATION: XR chest 1V portable DATE: 04/14/2024 06:07 INDICATION: Hypotension. TECHNIQUE: A single frontal view of the chest was obtained. COMPARISON: Chest single view 04/13/2024 FINDINGS: There is mild atelectasis in left mid and lower lung zones. There is a small left pleural e ffusion. No pneumothorax. Cardiomegaly is noted. A left upper extremity peripherally inserted central venous catheter (PICC) is seen with tip in the superior vena cava. IMPRESSION: 1. Mild atelectasis in left mid lower lung zones. 2. Stable small left pleural effusion. 3. Cardiomegaly. Reviewed, dictated and finalized at location E.
--- NOTE | ~2024-04-11 | XR_ITS ---
EXAMINATION: XR chest PICC line Exam Date/Time: 04/13/2024 14:55 CDT HISTORY: PICC line placement Comparison: 04/13/2020 4:25 PM. RESULT: Lines, tubes, and devices: Interval left upper extremity PICC replacement, tip terminating in the mi d SVC. Lungs and pleura: Streaky left basilar opacities with mild left costophrenic angle blunting. No pneu mothorax. Cardiomediastinal silhouette: Stable. Other: No acute osseous or upper abdominal finding. IMPRESSION: Left upper extremity PICC in good position. Left basilar opacities may represent atelectasis/scar. Possible small left pleural effusion. Reviewed, dictated and finalized at location K. IMPRESSION: Left upper extremity PICC in good position. Left basilar opacities may represent atelectasis/scar. Possible small left pleu ral effusion.
--- NOTE | ~2024-04-11 | XR_ITS ---
XR chest 1V Ordering provider: Jennifer Orellana PA-C History: 63 years Female with . weakness . Comparison: January 12, 2024 FINDINGS: MEDIASTINUM: The cardiac silhouette is moderately enlarged. Congestive delfino. LUNGS: No effusion or pneumothorax. Opacification the left lung base is seen suggestive of atelectasi s versus pneumonia. OTHER: No free air under the diaphragm. Degenerative spine. IMPRESSION: Left basilar atelectasis versus pneumonia. Cardiomegaly. Reviewed, dictated and finalized at location A.
--- NOTE | 2024-04-11 15:54 | ECG_ITS ---
Test Date: 2024-04-11 16:03:33 Measurements Intervals [facility] Rate: 142 P: 0 RI: 0 QRS: 85 QRSD: 87 T: 0 QT: 309 QTc: 475 Interpretive Statements ATRIAL FIBRILLATION WITH RAPID VENTRICULAR RESPONSE LOW QRS VOLTAGE IN PRECORDIAL LEADS [QRS DEFLECTION < 1.0 mV IN CHEST LEADS] ANTEROSEPTAL MYOCARDIAL INFARCTION , PROBABLY OLD [40+ ms Q WAVE IN V1-V4] No previous ECG available for comparison Electronically Signed On 04-12-2024 12:58:10 CDT by Vahe Almonte M.D.
--- NOTE | 2024-04-11 15:58 | ED.FALL ---
HPI - Fall General Chief Complaint: Fall <Jennifer Orellana PA-C - Last Filed: 04/11/24 22:43> Stated Complaint: FALL <PRICILA Hay Last Filed: 04/11/24 22:43> Time Seen by Provider: 04/11/24 15:43 <PRICILA Hay Last Filed: 04/11/24 22:43> Source: patient <PRICILA Hay Last Filed: 04/11/24 22:43> Mode of arrival: EMS <PRICILA Hay Last Filed: 04/11/24 22:43> Limitations: clinical condition <PRICILA Hay Last Filed: 04/11/24 22:43> History of Present Illness HPI Narrative: This is a 63 year old female that presents to the ER after being found on the floor by her brother. Reports she has been on the floor for days. Patient mildly altered, unable to provide much history. Covered in urine and bed sores. <PRICILA Hay Last Filed: 04/11/24 22:43> Related Data Home Medications: Home Medications Medication Instructions Recorded Confirmed multivit with minerals-iron 18 1 tablet PO DAILY 02/09/24 04/12/24 mg-folic ac 400 mcg-vit K 25 mcg tablet (Adults Multivitamin) diltiazem HCl 240 mg capsule,24 240 mg PO DAILY 04/12/24 04/12/24 hr,extended release <PRICILA Hay Last Filed: 04/11/24 22:43> Allergies/Adverse Reactions: Allergies Allergy/AdvReac Type Severity Reaction Status Date / Time codeine Allergy Unknown Other Verified 04/12/24 00:21 diazepam Allergy Unknown Other Verified 04/12/24 00:21 <PRICILA Hay Last Filed: 04/11/24 22:43> Review of Systems Review of Systems: ROS unobtainable: Yes unobtainable due to mental status <PRICILA Hay Last Filed: 04/11/24 22:43> [facility] Past Medical History Medical History: Medical History (Updated 04/12/24 @ 09:30 by Maribel Siddiqui APRN) Cervical cancer (2012) 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 Moderate tricuspid valve regurgitation Morbid obesity with BMI of 60.0-69.9, adult Paroxysmal atrial fibrillation Severe mitral valve regurgitation <Jennifer Orellana PA-C - Last Filed: 04/11/24 22:43> Surgical History Surgical History: Surgical History (Updated 02/09/24 @ 04:36 by Isabel Welch DO) History of total abdominal hysterectomy and bilateral salpingo-oophorectomy (2011) <Jennifer Orellana PA-C - Last Filed: 04/11/24 22:43> Family History Family History: Family History Mother CKD (chronic kidney disease), Onset Age: 18 Glomerular nephritis Father Lung cancer Sibling Non-Hodgkin lymphoma Recurrent kidney stones <Jennifer Orellana PA-C - Last Filed: 04/11/24 22:43> Social History Social History: Social History (Updated 02/09/24 @ 04:39 by Isabel Welch DO) Social History: Surrogate medical decision maker: Kishan Forrester, brother. Code status: DNR/DNI Smoking status: Never smoker Second hand tobacco smoke exposure: No Alcohol intake: never Substance use: never Do You Feel Safe in your Home?: Yes Lack of Transportation: No Lack of Food: Never True Current Housing: I Have Housing Concerned About Future Housing: No Difficulty Paying Gas/Electric Bills: No Difficulty Paying for Meds: No Currently Unemployed: No Education: Master's Degree or Higher Difficulty w/ Childcare or Family Care: No Additional living arrangements comments: The patient lives in her own home in [place]. She has a boxer named Dana. She does not have any children. 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: No <Jennifer Orellana PA-C - Last Filed: 04/11/24 22:43> Exam Narrative: GENERAL: Lethargic, obese, dishevelled HEAD: Normocephalic, atraumatic. EYES: PERRLA and EOMI. ENT: Nares clear, no rhinorrhea or epistaxis. Mucous membranes moist. Oropharynx without tonsillar hypertrophy exudate or other lesions. Bilateral
[2024-04-11] MEDS: SODIUM CHLORIDE 0.9% IV 1,000 ML 999 ML IV CONT (16:20)
[2024-04-11] MEDS: dilTIAZem HCl INJ 25 MG/5 ML VIAL 10 MG IV PUSH (17:21)
[2024-04-11 18:00] LABS: Appearance Urine Cloudy (Clear); Bacteria Urine 4+ /hpf; Bilirubin Urine 2+ (Negative); Blood Urine Negative (Negative); Color Urine Dark Yellow (Yellow); Glucose Urine UA Negative (Negative); Ketones Urine Trace mg/dL (Negative); Leukocyte Esterase Ur 1+ LEU/UL (Negative); Need Manual Microscopic Reviewed; Nitrate Urine Negative (Negative); Protein Urine 1+ mg/dL (Negative); Specific Grav Ur 1.026 (1.001-1.035); Squamous Epithelial Cell Urine Few /hpf (Few); pH Urine 5.5 (5.0-9.0)
[2024-04-11 18:02] LABS: Add Urine Microscopic? YES
[2024-04-11 19:01] LABS: Basophils Percent Auto 0.2 % (0.2-1.2); Eosinophils Percent Auto 0.4 % (0-4.4); Hematocrit 42.4 % (37.0-47.0); Hemoglobin 13.3 g/dL (12.0-15.0); Immature Granulocyte Absolute 0.08 K/mm3 (0.00-0.031); Immature Granulocyte Percent A 0.8 % (0-0.5); Lymphocytes Absolute Auto 1.04 K/mm3 (0.9-3.2); Lymphocytes Percent Auto 10.9 % (18.3-44.2); Mean Corpuscular HGB Conc 31.4 g/dl (32-36); Mean Corpuscular Hemoglobin 31.5 pg (26-34); Mean Corpuscular Volume 100.5 fl (80-100); Mean Platelet Volume 10.6 fl (7.4-10.4); Monocytes Absolute Auto 0.8 K/mm3 (0.1-0.6); Monocytes Percent Auto 8.1 % (2.6-8.5); Neutrophils Absolute Auto 7.6 K/mm3 (1.3-6.7); Neutrophils Percent Auto 79.6 % (45.5-73.1); Nucleated Red Blood Cells Perc 0.4 % (0.0-0.2); Platelet Count Result 212 k/mm3 (150-375); Red Blood Count 4.22 M/mm3 (4.2-5.4); Red Cell Distribution Width 16.6 % (11.5-14.5); White Blood Count 9.5 K/mm3 (4.5-10.0)
[2024-04-11 19:13] LABS: Alanine Aminotransferase 31 U/L (6-35); Albumin Level 3.3 g/dL (3.5-5.1); Alkaline Phosphatase 83 U/L (38-126); Anion Gap 13 mmol/L (4-12); Aspartate Amino Transferase 38 U/L (14-36); Blood Urea Nitrogen 33 mg/dL (7-17); CRP 6.9 mg/dL (<1.0); Calcium 8.8 mg/dL (8.4-10.2); Carbon Dioxide 20 mmol/L (22-30); Chloride 121 mmol/L (98-107); Creatine Kinase 65 U/L (30-135); Estimated CRCL calculation 75 ml/min; Estimated Glomerular Filt Rate > 60; Glucose 95 mg/dL (65-110); Potassium 3.7 mmol/L (3.4-5.0); Sodium 154 mmol/L (137-145)
[2024-04-11 19:30] LABS: Lipase 191 U/L (23-300)
[2024-04-11] MEDS: dilTIAZem 100 MG/100 ML 100 MG/100 ML BAG IV CONT (19:50)
--- NOTE | 2024-04-11 19:55 | PM.IMHP ---
H&P: HPI History of Present Illness Date/Time: 04/11/24 19:55 Chief Complaint: Fall Narrative: This is a 63-year-old female with past medical history significant for morbid obesity, cervical cancer, chronic lymphedema, paroxysmal atrial fibrillation, severe mitral valve regurgitation. Patient presents to the emergency room after she was found down by her brother who came to do a wellness checkup on her last time he had seen her was over 2 weeks before, patient is unable to contribute in a meaningful way to history taking. Preliminary workup was significant for chemistry panel with sodium of 154, chloride 121, a chest x-ray showed a left basilar infiltrate. patient is been admitted for further evaluation management and treatment. CT brain wo con Ordering provider: Jennifer Orellana PA-C History: 63 years Female with . AMS . Comparison: None. Technique: CT of the head without contrast. FINDINGS: BRAIN PARENCHYMA AND CSF SPACES: No midline shift, mass effect or hemorrhage. The brain parenchyma and CSF spaces are otherwise normal. The posterior fossa cannot be properly evaluated due to artifacts. VISUALIZED PARANASAL SINUSES: Bilateral ethmoid and frontal sinus disease. Right maxillary sinus disease. MASTOIDS: Well aerated. BONES: No definite bony fracture. SOFT TISSUES: Visualized nasopharynx is normal. Subgaleal Hematoma in the both frontal scalp and both parieto-occipital scalp. Otherwise, Superficial soft tissues are normal. Air is seen in the area posterior to the right maxillary sinus and the temporal soft tissue area. There is also seen anterior to the right maxillary sinus. IMPRESSION: No acute intracranial findings. Huge scalp hematoma involving the posterior frontal, parietal and occipital scalp. XR chest 1V Ordering provider: Jennifer Orellana PA-C History: 63 years Female with . weakness . Comparison: January 12, 2024 FINDINGS: MEDIASTINUM: The cardiac silhouette is moderately enlarged. Congestive delfino. LUNGS: No effusion or pneumothorax. Opacification the left lung base is seen suggestive of atelectasis versus pneumonia. OTHER: No free air under the diaphragm. Degenerative spine. IMPRESSION: Left basilar atelectasis versus pneumonia. Cardiomegaly. 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 Moderate tricuspid valve regurgitation Morbid obesity with BMI of 60.0-69.9, adult Paroxysmal atrial fibrillation Severe mitral valve regurgitation Surgical History Surgical History (Updated 02/09/24 @ 04:36 by Isabel Welch DO) History of total abdominal hysterectomy and bilateral salpingo-oophorectomy (2011) Family History Family History Mother CKD (chronic kidney disease), Onset Age: 18 Glomerular nephritis Father Lung cancer Sibling Non-Hodgkin lymphoma Recurrent kidney stones Social History Social History (Updated 02/09/24 @ 04:39 by Isabel Welch DO) Social History: Surrogate medical decision maker: Kishan Forrester, brother. Code status: DNR/DNI Smoking status: Never smoker Second hand tobacco smoke exposure: No Alcohol intake: never Substance use: never Do You Feel Safe in your Home?: Yes Lack of Transportation: No Lack of Food: Never True Current Housing: I Have Housing Concerned About Future Housing: No Difficulty Paying Gas/Electric Bills: No Difficulty Paying for Meds: No Currently Unemployed: No Education: Master's Degree or Higher Difficulty w/ Childcare or Family Care: No Additional living arrangements comments: The patient lives in her own home in [place]. She has a boxer named Dana. She does not have any children.
[2024-04-11] MEDS: LACTATED RINGERS 1,000 ML 999 ML IV CONT (20:24)
[2024-04-11 20:41] LABS: Lactic Acid Reflex 2.7 mmol/L (0.7-2.0)
[2024-04-11] MEDS: AZITHROMYCIN 500 MG/NS 250 ML 500 MG/250 ML BAG 250 MG IVPB (21:25)
--- NOTE | 2024-04-11 22:39 | PC.NURSE ---
This patient, Pili Forrester, was admitted to IMU Room 205-02 at 2239. Patient/family oriented to hospital policies and general routines including ID bracelet, bed and alarms, visiting hours, pain management, procedures, bathroom and other care routines, personal items, smoking policy, room service/diet, and visiting hours. Information on how to activate the Rapid Response Team has been discussed. Patient/Family are encouraged to report perceived risks to care and to ask questions if they do not understand what they are told or what they should do.
[2024-04-11 23:26] LABS: Reflex Lactic Acid Yes or No Add Lactic
[2024-04-12] VITALS (20 sets, daily range): BP systolic 86–130; BP diastolic 53–83; PULSE 78–110; RESP 16–22; TEMP 36.3–36.6; O2SAT 96–100
[2024-04-12 00:13] LABS: Lactic Acid 2.5 mmol/L (0.7-2.0)
[2024-04-12 02:12] LABS: Anion Gap 9 mmol/L (4-12); Blood Urea Nitrogen 31 mg/dL (7-17); Calcium 8.6 mg/dL (8.4-10.2); Carbon Dioxide 25 mmol/L (22-30); Chloride 121 mmol/L (98-107); Estimated CRCL calculation 77 ml/min; Estimated Glomerular Filt Rate > 60; Glucose 91 mg/dL (65-110); Magnesium 2.3 mg/dL (1.6-2.3); Phosphorus 3.8 mg/dL (2.5-4.5); Potassium 3.5 mmol/L (3.4-5.0); Sodium 155 mmol/L (137-145)
[2024-04-12] MEDS: dilTIAZem 100 MG/100 ML 100 MG/100 ML BAG 10 MG IV CONT (03:40)
[2024-04-12] MEDS: DEXTROSE 5%/0.45% SOD CHL 1,000 ML 75 ML IV CONT (03:52)
[2024-04-12 08:10] LABS: Sodium 154 mmol/L (137-145)
--- NOTE | 2024-04-12 09:02 | P.PNIM_ITS ---
Progress Note: A&P Assessment and Plan (1) CAP (community acquired pneumonia): Code(s): J18.9 - Pneumonia, unspecified organism Status: Acute Assessment and Plan: Imaging concerns for possible left basilar atelectasis versus pneumonia * Patient reports congested cough with yellow phlegm * Subjective fever and chills * White count is normal but neutrophils elevated * Initially was started on Rocephin azithromycin however antibiotics were escalated to cefepime and vanc given both recent hospitalization and concerns for possible abdominal infection * Incentive spirometry, pep * Guaifenesin b.i.d. * Region antigen, mycoplasma IgM, pneumococcal antigen pending * Albuterol nebulizer p.r.n. q.4 (2) Atrial fibrillation with RVR: Code(s): I48.91 - Unspecified atrial fibrillation Status: Acute Assessment and Plan: Atrial fibrillation with RVR on admission with a rate in the 130s * typically on diltiazem 240 mg daily * started on diltiazem gtt * Will start oral diltiazem 60 mg QID per cards * Continue with her metoprolol 25 mg * BNP elevated but likely from demand * TSH normal * Recent echo from December 2023 reviewed shows normal LV function with EF estimated at 50-55%. Moderate to severe mitral valve regurgitation. Moderate tricuspid regurgitation. * Xarelto currently on hold in case she needs surgical intervention for abdominal wound * Lovenox DVT prophylaxis (3) Hypernatremia: Code(s): E87.0 - Hyperosmolality and hypernatremia Status: Acute Assessment and Plan: Sodium 154 on admission. Patient has been down at home for 5 days * tacky mucous membranes * ED gave LR and D51/2 NS---stopped and started D5W @ 100 ml per hour * Repeat BMP this afternoon at 1500 (4) UTI (urinary tract infection): Code(s): N39.0 - Urinary tract infection, site not specified Status: Acute Assessment and Plan: UA concerning for infection * Blood and urine culture pending * Procalcitonin negative * initially was started on Rocephin for azithromycin for HAP * Switched to Cefepime and Vancomycin for abdominal coverage of possible necrotizing fasciitis * None the less antibiotics will cover for urinary bug * Lynch in place--urine is clear (5) Wounds, multiple: Code(s): T07.XXXA - Unspecified multiple injuries, initial encounter Status: Chronic Assessment and Plan: * Photos were taken * BLE wounds in various stages of healing--clean with soap and water, apply thin layer of silver gel to open areas with yellow slough, cover with Vaseline or Adaptic gauze, ABD pad and then wrap with Kerlix. Change dressing b.i.d. or as needed * Wounds to bilateral arms covered with Mepilex * Abdominal wound with c/o necrotic tissue, yellow and pale pink wound bed with foul smell. * CT was ordered to assess for possible necrotizing fasciitis. Unable to do CT due to body habitus. * US ordered instead * CRP elevated * Wound consult placed and rec's appreciated (6) Fall: Code(s): W19.XXXA - Unspecified fall, initial encounter Status: Acute Assessment and Plan: Mechanical fall at home * Urine drug screen pending * Ethanol less than 10 * PT OT consult * Patient is likely going to need SNF placement Plan Feeding: Heart healthy diet Analgesia: Tylenol Thromboembolic prophylaxis: Lovenox Lines: PIV Antibiotics: Cefepime, vancomycin Disposition: Likely SNF Subjective Date/time seen: 04/12/24 09:02 Interval history: This is a 63-year-old female wi
--- NOTE | 2024-04-12 09:02 | PM.IMPN ---
Progress Note: A&P Assessment and Plan (1) CAP (community acquired pneumonia): Code(s): J18.9 - Pneumonia, unspecified organism Status: Acute Assessment and Plan: Imaging concerns for possible left basilar atelectasis versus pneumonia Patient reports congested cough with yellow phlegm Subjective fever and chills White count is normal but neutrophils elevated Initially was started on Rocephin azithromycin however antibiotics were escalated to cefepime and vanc given both recent hospitalization and concerns for possible abdominal infection Incentive spirometry, pep Guaifenesin b.i.d. Region antigen, mycoplasma IgM, pneumococcal antigen pending Albuterol nebulizer p.r.n. q.4 (2) Atrial fibrillation with RVR: Code(s): I48.91 - Unspecified atrial fibrillation Status: Acute Assessment and Plan: Atrial fibrillation with RVR on admission with a rate in the 130s typically on diltiazem 240 mg daily started on diltiazem gtt Will start oral diltiazem 60 mg QID per cards Continue with her metoprolol 25 mg BNP elevated but likely from demand TSH normal Recent echo from December 2023 reviewed shows normal LV function with EF estimated at 50-55%. Moderate to severe mitral valve regurgitation. Moderate tricuspid regurgitation. Xarelto currently on hold in case she needs surgical intervention for abdominal wound Lovenox DVT prophylaxis (3) Hypernatremia: Code(s): E87.0 - Hyperosmolality and hypernatremia Status: Acute Assessment and Plan: Sodium 154 on admission. Patient has been down at home for 5 days tacky mucous membranes ED gave LR and D51/2 NS---stopped and started D5W @ 100 ml per hour Repeat BMP this afternoon at 1500 (4) UTI (urinary tract infection): Code(s): N39.0 - Urinary tract infection, site not specified Status: Acute Assessment and Plan: UA concerning for infection Blood and urine culture pending Procalcitonin negative initially was started on Rocephin for azithromycin for HAP Switched to Cefepime and Vancomycin for abdominal coverage of possible necrotizing fasciitis None the less antibiotics will cover for urinary bug Lynch in place--urine is clear (5) Wounds, multiple: Code(s): T07.XXXA - Unspecified multiple injuries, initial encounter Status: Chronic Assessment and Plan: Photos were taken BLE wounds in various stages of healing--clean with soap and water, apply thin layer of silver gel to open areas with yellow slough, cover with Vaseline or Adaptic gauze, ABD pad and then wrap with Kerlix. Change dressing b.i.d. or as needed Wounds to bilateral arms covered with Mepilex Abdominal wound with c/o necrotic tissue, yellow and pale pink wound bed with foul smell. CT was ordered to assess for possible necrotizing fasciitis. Unable to do CT due to body habitus. US ordered instead CRP elevated Wound consult placed and rec's appreciated (6) Fall: Code(s): W19.XXXA - Unspecified fall, initial encounter Status: Acute Assessment and Plan: Mechanical fall at home Urine drug screen pending Ethanol less than 10 PT OT consult Patient is likely going to need SNF placement Plan Feeding: Heart healthy diet Analgesia: Tylenol Thromboembolic prophylaxis: Lovenox Lines: PIV Antibiotics: Cefepime, vancomycin Disposition: Likely SNF Subjective Date/time seen: 04/12/24 09:02 Interval history: This is a 63-year-old female with a past medical history of cervical cancer status post hysterectomy, super morbid obesity, chronic lymphedema and longstanding paroxysmal atrial fibrillation (not on anticoagulation) and family history of kidney stones who presented to the ER via EMS after being found down at home by her brother. The patient provides the following information but she is somewhat a difficult historian so some of the information is supplemented through chart review. Th
[2024-04-12 09:25] LABS: Basophils Percent Auto 0.2 % (0.2-1.2); Eosinophils Absolute Auto 0.1 K/mm3 (0-0.3); Eosinophils Percent Auto 0.7 % (0-4.4); Hematocrit 42.6 % (37.0-47.0); Hemoglobin 12.8 g/dL (12.0-15.0); Immature Granulocyte Absolute 0.07 K/mm3 (0.00-0.031); Immature Granulocyte Percent A 0.8 % (0-0.5); Lymphocytes Absolute Auto 1.09 K/mm3 (0.9-3.2); Lymphocytes Percent Auto 12.1 % (18.3-44.2); Mean Corpuscular Volume 103.1 fl (80-100); Mean Platelet Volume 10.6 fl (7.4-10.4); Monocytes Absolute Auto 0.7 K/mm3 (0.1-0.6); Monocytes Percent Auto 7.9 % (2.6-8.5); Neutrophils Percent Auto 78.3 % (45.5-73.1); Nucleated Red Blood Cells Perc 0.4 % (0.0-0.2); Platelet Count Result 186 k/mm3 (150-375); Red Blood Count 4.13 M/mm3 (4.2-5.4); Red Cell Distribution Width 17.2 % (11.5-14.5)
[2024-04-12 10:43] LABS: Alanine Aminotransferase 26 U/L (6-35); Albumin Level 2.7 g/dL (3.5-5.1); Alkaline Phosphatase 65 U/L (38-126); Anion Gap 5 mmol/L (4-12); Aspartate Amino Transferase 35 U/L (14-36); Bilirubin,Total 2.8 mg/dL (0.2-1.3); Blood Urea Nitrogen 32 mg/dL (7-17); Calcium 8.4 mg/dL (8.4-10.2); Carbon Dioxide 24 mmol/L (22-30); Chloride 124 mmol/L (98-107); Estimated CRCL calculation 85 ml/min; Estimated Glomerular Filt Rate > 60; Glucose 97 mg/dL (65-110); Magnesium 2.3 mg/dL (1.6-2.3); Potassium 3.7 mmol/L (3.4-5.0); Sodium 153 mmol/L (137-145)
[2024-04-12] MEDS: CEFEPIME 2 GM/NS 50 ML 2 GM/50 ML BAG IVPB ×2 (10:56→20:50)
[2024-04-12] MEDS: DEXTROSE 5% 1,000 ML 1,000 ML 100 ML IV CONT (10:58)
[2024-04-12 11:26] LABS: Creatine Kinase 51 U/L (30-135)
[2024-04-12 11:27] LABS: Lactic Acid Reflex 1.6 mmol/L (0.7-2.0)
[2024-04-12 11:29] LABS: Ethanol < 10 mg/dL (<10)
[2024-04-12 11:38] LABS: NT Pro B Type Natriuretic Pept 7290 pg/mL (19.9-100)
[2024-04-12 11:58] LABS: Procalcitonin 0.1 ng/mL
[2024-04-12] MEDS: VANCOMYCIN 1,250 MG/NS 250 ML 1,250 MG/250 ML BAG 166.67 MG IVPB ×2 (11:59→13:35)
--- NOTE | 2024-04-12 12:16 | PCPTNOTE ---
attempted PT evaluation. Pt refused, stated just not up to it, do not have it in me today. Discussed sitting on edge of bed, doing LE exercises, she continued to refuse.
--- NOTE | 2024-04-12 12:19 | PM.CNCAR ---
Assessment and Plan Assessment and plan (1) Atrial fibrillation with RVR: Code(s): I48.91 - Unspecified atrial fibrillation Status: Acute Plan Persistent atrial fibrillation Status post fall mechanical Morbid obesity Dehydration on presentation Hyponatremia presented Echocardiogram Start diltiazem 60 mg q.i.d. Continue metoprolol Oral anticoagulation with rivaroxaban 20 mg daily History of Present Illness History of Present Illness Consult date/time: 04/12/24 12:19 Reason For Visit: AFib with RVR, dehydration Narrative: 63-year-old female patient presented to the hospital with a fall. She had a mechanical fall few days ago at home. She denies any dizziness or loss of consciousness. However after fall she was very weak going to get out of the floor. she chiquita't get seek medical help. She stayed in floor for several days until her family members came for visit. She was admitted with dehydration and electrolyte abnormalities. She was noted to have AF rate controlled with Diltiazem 10 mg per hour. 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 Moderate tricuspid valve regurgitation Morbid obesity with BMI of 60.0-69.9, adult Paroxysmal atrial fibrillation Severe mitral valve regurgitation Surgical History Surgical History (Updated 02/09/24 @ 04:36 by Isabel Welch DO) History of total abdominal hysterectomy and bilateral salpingo-oophorectomy (2011) Family History Family History Mother CKD (chronic kidney disease), Onset Age: 18 Glomerular nephritis Father Lung cancer Sibling Non-Hodgkin lymphoma Recurrent kidney stones Social History Social History (Updated 02/09/24 @ 04:39 by Isabel Welch DO) Social History: Surrogate medical decision maker: Kishan Forrester, brother. Code status: DNR/DNI Smoking status: Never smoker Second hand tobacco smoke exposure: No Alcohol intake: never Substance use: never Do You Feel Safe in your Home?: Yes Lack of Transportation: No Lack of Food: Never True Current Housing: I Have Housing Concerned About Future Housing: No Difficulty Paying Gas/Electric Bills: No Difficulty Paying for Meds: No Currently Unemployed: No Education: Master's Degree or Higher Difficulty w/ Childcare or Family Care: No Additional living arrangements comments: The patient lives in her own home in [place]. She has a boxer named Dana. She does not have any children. 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. 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: No Meds Home Medications and Allergies Home Medications Medication Instructions Recorded Confirmed Type multivit with minerals-iron 18 1 tablet PO DAILY 02/09/24 04/12/24 History mg-folic ac 400 mcg-vit K 25 mcg tablet (Adults Multivitamin) metoprolol tartrate 25 mg tablet 25 mg PO Q12HR #60 tabs 02/12/24 04/12/24 Rx rivaroxaban 20 mg tablet (Xarelto) 20 mg PO DAILY@1700 #30 tabs 02/12/24 04/12/24 Rx diltiazem HCl 240 mg capsule,24 240 mg PO DAILY 04/12/24 04/12/24 History hr,extended release Allergies Allergy/AdvReac Type Severity Reaction Status Date / Time codeine Allergy Unknown Other Verified 04/12/24 00:21 diazepam Allergy Unknown Other Verified 04/12/24 00:21 Vital Signs Vital Signs - 24 hr 04/11/24 16:07 04/11/24 17:23 04/11/24 17:27 Temperature 36.1 C L 37.0 C 37.0 C Pulse Rate 143 H 123 H 118 H Respiratory Rate 19 19 34 H Blood Pressure 122/87 105/85 Pulse Oximetry 93 97 Oxygen Delivery Room Air 04/11/24 17:30 04/11/24 17:31 04/11/24 17:49 Temperature 37.0 C 37.1 C 37.0 C Pulse Rate 109 H 99 123 H Respiratory R
[2024-04-12] MEDS: dilTIAZem HCL 60 MG TABLET PO ×2 (12:40→18:36)
--- NOTE | 2024-04-12 15:26 | PCOTNOTE ---
Attempted to see pt. for occupational therapy evaluation. Pt. declined therapy on this date due to pain and fatigue. Nursing aware. Following.
[2024-04-12 15:54] LABS: Sodium 151 mmol/L (137-145)
[2024-04-12 17:48] LABS: Amphetamine Screen Urine Negative (Negative); Barbiturate Screen Urine Negative (Negative); Benzodiazepines Screen Urine Negative (Negative); Cannabinoid Screen Urine Negative (Negative); Cocaine Screen Urine Negative (Negative); Methadone Screen Urine Negative (Negative); Opiate Screen Urine Negative (Negative); Phencyclidine Screen Urine Negative (Negative)
[2024-04-12] MEDS: METOPROLOL TARTRATE 25 MG TABLET PO (20:50)
[2024-04-12] MEDS: guaiFENesin 12 HR 600 MG TABCR 1200 MG PO (20:52)
[2024-04-13] VITALS (19 sets, daily range): BP systolic 90–103; BP diastolic 50–79; PULSE 74–97; RESP 20–24; TEMP 36.1–37; O2SAT 96–98; BMI 10.0
[2024-04-13 04:42] LABS: Basophils Absolute Auto 0.1 K/mm3 (0.0-0.1); Basophils Percent Auto 0.6 % (0.2-1.2); Eosinophils Absolute Auto 0.4 K/mm3 (0-0.3); Hematocrit 44.7 % (37.0-47.0); Hemoglobin 13.5 g/dL (12.0-15.0); Immature Granulocyte Absolute 0.22 K/mm3 (0.00-0.031); Immature Granulocyte Percent A 1.8 % (0-0.5); Lymphocytes Absolute Auto 1.22 K/mm3 (0.9-3.2); Lymphocytes Percent Auto 9.8 % (18.3-44.2); Mean Corpuscular HGB Conc 30.2 g/dl (32-36); Mean Corpuscular Hemoglobin 31.3 pg (26-34); Mean Corpuscular Volume 103.7 fl (80-100); Mean Platelet Volume 10.2 fl (7.4-10.4); Neutrophils Absolute Auto 9.6 K/mm3 (1.3-6.7); Neutrophils Percent Auto 76.8 % (45.5-73.1); Nucleated Red Blood Cells Perc 0.6 % (0.0-0.2); Platelet Count Result 164 k/mm3 (150-375); Red Blood Count 4.31 M/mm3 (4.2-5.4); Red Cell Distribution Width 16.5 % (11.5-14.5); White Blood Count 12.5 K/mm3 (4.5-10.0)
[2024-04-13 04:50] LABS: Hemoglobin A1C 4.8 % (<5.7)
[2024-04-13 04:52] LABS: Partial Thromboplastin Time 31.6 Seconds (22.3-36.8)
[2024-04-13 04:54] LABS: Alanine Aminotransferase 25 U/L (6-35); Albumin Level 3.2 g/dL (3.5-5.1); Alkaline Phosphatase 83 U/L (38-126); Anion Gap 10 mmol/L (4-12); Aspartate Amino Transferase 30 U/L (14-36); Blood Urea Nitrogen 32 mg/dL (7-17); CRP 5.7 mg/dL (<1.0); Calcium 8.2 mg/dL (8.4-10.2); Carbon Dioxide 20 mmol/L (22-30); Chloride 112 mmol/L (98-107); Estimated CRCL calculation 65 ml/min; Estimated Glomerular Filt Rate 50; Glucose 135 mg/dL (65-110); Magnesium 2.2 mg/dL (1.6-2.3); Potassium 3.7 mmol/L (3.4-5.0); Sodium 142 mmol/L (137-145)
[2024-04-13 04:56] LABS: Lactic Acid Reflex 2.9 mmol/L (0.7-2.0)
[2024-04-13] MEDS: VANCOMYCIN 1,500 MG/NS 500 ML 1,500 MG/500 ML BAG 250 MG IVPB (05:48)
[2024-04-13] MEDS: dilTIAZem HCL 60 MG TABLET PO ×2 (05:48)
[2024-04-13 07:37] LABS: Reflex Lactic Acid Yes or No Add Lactic
[2024-04-13 08:24] LABS: Lactic Acid 2.5 mmol/L (0.7-2.0)
--- NOTE | 2024-04-13 09:28 | P.PNIM_ITS ---
Progress Note: A&P Assessment and Plan (1) CAP (community acquired pneumonia): Code(s): J18.9 - Pneumonia, unspecified organism Status: Acute Assessment and Plan: Imaging concerns for possible left basilar atelectasis versus pneumonia * Patient reports congested cough with yellow phlegm * Subjective fever and chills * White count is normal but neutrophils elevated * Initially was started on Rocephin azithromycin however antibiotics were escalated to cefepime and vanc given both recent hospitalization and concerns for possible abdominal infection * Incentive spirometry, pep * Guaifenesin b.i.d. * legionella antigen, mycoplasma IgM, pneumococcal antigen pending * Albuterol nebulizer p.r.n. q.4 04/13: * Continue cefepime, vancomycin * Initial blood cultures have 1/2 bottle with staph epidermis. Repeat cultures ordered * Urine culture pending * WBC slightly increased today 12.5, Cr 1.1, Tbili 3.0 (2) Atrial fibrillation with RVR: Code(s): I48.91 - Unspecified atrial fibrillation Status: Acute Assessment and Plan: Atrial fibrillation with RVR on admission with a rate in the 130s * typically on diltiazem 240 mg daily * started on diltiazem gtt * Will start oral diltiazem 60 mg QID per cards * Continue with her metoprolol 25 mg * BNP elevated but likely from demand * TSH normal * Recent echo from December 2023 reviewed shows normal LV function with EF estimated at 50-55%. Moderate to severe mitral valve regurgitation. Moderate tricuspid regurgitation. * Lovenox DVT prophylaxis 04/13: * a-fib, heart rate in the 70's * diltiazem on hold after hypotensive episode this morning * Continue with metoprolol but do not give if SBP less than 110 mm hg (3) UTI (urinary tract infection): Code(s): N39.0 - Urinary tract infection, site not specified Status: Acute Assessment and Plan: UA concerning for infection * Blood and urine culture pending * Procalcitonin negative * initially was started on Rocephin for azithromycin for HAP * Switched to Cefepime and Vancomycin for abdominal coverage of possible necrotizing fasciitis * None the less antibiotics will cover for urinary bug * Lynch in place--urine is clear 04/13: * Urine culture pending * Urine today is pink and cloudy * Will get renal US today (4) Hypernatremia: Code(s): E87.0 - Hyperosmolality and hypernatremia Status: Acute Assessment and Plan: Sodium 154 on admission. Patient has been down at home for 5 days * tacky mucous membranes * ED gave LR and D51/2 NS---stopped and started D5W @ 100 ml per hour * Repeat BMP this afternoon at 1500 04/13: * Sodium has improved. Na+ 142 (5) Wounds, multiple: Code(s): T07.XXXA - Unspecified multiple injuries, initial encounter Status: Chronic Assessment and Plan: * Photos were taken * BLE wounds in various stages of healing--clean with soap and water, apply thin layer of silver gel to open areas with yellow slough, cover with Vaseline or Adaptic gauze, ABD pad and then wrap with Kerlix. Change dressing b.i.d. or as needed * Wounds to bilateral arms covered with Mepilex * Abdominal wound with c/o necrotic tissue, yellow and pale pink wound bed with foul smell. * US ordered instead * CRP elevated * Wound consult placed and rec's appreciated (6) Fall: Code(s): W19.XXXA - Unspecified fall, initial encounter Status: Acute Assessment and Plan: Mechanical fall at home * Urine drug screen pending * Ethanol le
--- NOTE | 2024-04-13 09:28 | PM.IMPN ---
Progress Note: A&P Assessment and Plan (1) CAP (community acquired pneumonia): Code(s): J18.9 - Pneumonia, unspecified organism Status: Acute Assessment and Plan: Imaging concerns for possible left basilar atelectasis versus pneumonia Patient reports congested cough with yellow phlegm Subjective fever and chills White count is normal but neutrophils elevated Initially was started on Rocephin azithromycin however antibiotics were escalated to cefepime and vanc given both recent hospitalization and concerns for possible abdominal infection Incentive spirometry, pep Guaifenesin b.i.d. legionella antigen, mycoplasma IgM, pneumococcal antigen pending Albuterol nebulizer p.r.n. q.4 04/13: Continue cefepime, vancomycin Initial blood cultures have 1/2 bottle with staph epidermis. Repeat cultures ordered Urine culture pending WBC slightly increased today 12.5, Cr 1.1, Tbili 3.0 (2) Atrial fibrillation with RVR: Code(s): I48.91 - Unspecified atrial fibrillation Status: Acute Assessment and Plan: Atrial fibrillation with RVR on admission with a rate in the 130s typically on diltiazem 240 mg daily started on diltiazem gtt Will start oral diltiazem 60 mg QID per cards Continue with her metoprolol 25 mg BNP elevated but likely from demand TSH normal Recent echo from December 2023 reviewed shows normal LV function with EF estimated at 50-55%. Moderate to severe mitral valve regurgitation. Moderate tricuspid regurgitation. Lovenox DVT prophylaxis 04/13: a-fib, heart rate in the 70's diltiazem on hold after hypotensive episode this morning Continue with metoprolol but do not give if SBP less than 110 mm hg (3) UTI (urinary tract infection): Code(s): N39.0 - Urinary tract infection, site not specified Status: Acute Assessment and Plan: UA concerning for infection Blood and urine culture pending Procalcitonin negative initially was started on Rocephin for azithromycin for HAP Switched to Cefepime and Vancomycin for abdominal coverage of possible necrotizing fasciitis None the less antibiotics will cover for urinary bug Lynch in place--urine is clear 04/13: Urine culture pending Urine today is pink and cloudy Will get renal US today (4) Hypernatremia: Code(s): E87.0 - Hyperosmolality and hypernatremia Status: Acute Assessment and Plan: Sodium 154 on admission. Patient has been down at home for 5 days tacky mucous membranes ED gave LR and D51/2 NS---stopped and started D5W @ 100 ml per hour Repeat BMP this afternoon at 1500 04/13: Sodium has improved. Na+ 142 (5) Wounds, multiple: Code(s): T07.XXXA - Unspecified multiple injuries, initial encounter Status: Chronic Assessment and Plan: Photos were taken BLE wounds in various stages of healing--clean with soap and water, apply thin layer of silver gel to open areas with yellow slough, cover with Vaseline or Adaptic gauze, ABD pad and then wrap with Kerlix. Change dressing b.i.d. or as needed Wounds to bilateral arms covered with Mepilex Abdominal wound with c/o necrotic tissue, yellow and pale pink wound bed with foul smell. US ordered instead CRP elevated Wound consult placed and rec's appreciated (6) Fall: Code(s): W19.XXXA - Unspecified fall, initial encounter Status: Acute Assessment and Plan: Mechanical fall at home Urine drug screen pending Ethanol less than 10 PT OT consult Patient is likely going to need SNF placement Plan Feeding: Heart healthy diet Analgesia: Tylenol Thromboembolic prophylaxis: Lovenox Lines: PIV Antibiotics: Cefepime, vancomycin Disposition: Likely SNF Subjective Date/time seen: 04/13/24 09:28 Interval history: This is a 63-year-old female with a past medical history of cervical cancer status post hysterectomy, super morbid obesity, chronic lymphedema and l
--- NOTE | 2024-04-13 09:54 | PM.PNCARD ---
Progress Note: A&P Assessment and Plan (1) Atrial fibrillation with RVR: Code(s): I48.91 - Unspecified atrial fibrillation Status: Acute Plan Persistent atrial fibrillation Status post fall mechanical Morbid obesity Dehydration on presentation Echocardiogram pending Continue diltiazem 60mg q6h Continue metoprolol Oral anticoagulation with rivaroxaban 20 mg daily Subjective Date/time seen: 04/13/24 09:54 Interval history: Cardiology follow up for atrial fibrillation She is currently rate controlled on current regimen. No cardiac complaints. Review of Systems Review of Systems: All systems reviewed & are unremarkable except as noted in HPI and below Exam Const: General: comfortable and no acute distress Other: Able to lie flat, morbidly obese HENMT: Face/Nose/Sinus: Normal nares present and no epistaxis Mouth: Yes moist mucous membranes Other: Bruising seen on her neck Eyes: Sclera: sclerae normal Pupils: Equal, round and reactive pupils present Neck: Neck: supple Carotids: no bruits Resp: Auscultation: clear to auscultation bilaterally and lung sounds not diminished Other: No chest wall tenderness Cardio: Rate: regular rate Rhythm: abnormal rhythm irregularly irregular Heart sounds: no gallops, no murmurs and no rubs GI: Auscultation: normal bowel sounds Skin: General skin exam: normal color, rashes and/or lesions noted and no erythema Other: Warm Neuro: Cranial nerves: Yes Equal, round and reactive pupils present Speech: normal speech Other: No obvious focal deficit or facial asymmetry Extrem: General: no edema Other: Normal capillary refills Intact distal pulses. Objective Data Vital Signs Vital Signs: Vital Signs - 24 hr 04/12/24 10:00 04/12/24 12:00 04/12/24 12:00 Temperature 36.4 C L Pulse Rate 79 87 104 H Respiratory Rate 20 20 Blood Pressure 100/79 Pulse Oximetry 97 97 Oxygen Delivery Room Air 04/12/24 12:00 04/12/24 14:00 04/12/24 16:00 Temperature 36.6 C 36.4 C L Pulse Rate 94 84 91 Respiratory Rate 16 20 Blood Pressure 97/83 L 86/53 L Pulse Oximetry 96 97 Oxygen Delivery 04/12/24 16:00 04/12/24 16:00 04/12/24 20:37 Temperature 36.6 C Pulse Rate 82 91 91 Respiratory Rate 20 20 Blood Pressure 100/65 Pulse Oximetry 97 98 Oxygen Delivery Room Air 04/12/24 20:50 04/12/24 20:00 04/12/24 20:45 Temperature Pulse Rate 99 85 Respiratory Rate Blood Pressure Pulse Oximetry Oxygen Delivery Room Air 04/12/24 22:00 04/12/24 23:36 04/13/24 00:00 Temperature 36.4 C Pulse Rate 105 H 95 86 Respiratory Rate 18 Blood Pressure 130/81 Pulse Oximetry 100 Oxygen Delivery 04/13/24 00:00 04/13/24 02:00 04/13/24 04:21 Temperature 36.4 C Pulse Rate 94 83 Respiratory Rate 22 H Blood Pressure 103/69 Pulse Oximetry 97 Oxygen Delivery Room Air 04/13/24 04:00 04/13/24 04:00 04/13/24 06:00 Temperature Pulse Rate 86 87 Respiratory Rate Blood Pressure Pulse Oximetry Oxygen Delivery Room Air 04/13/24 07:48 Temperature 36.8 C Pulse Rate 88 Respiratory Rate 24 H Blood Pressure Pulse Oximetry 96 Oxygen Delivery Intake/Output Intake/Output: Intake & Output 04/10/24 04/11/24 04/12/24 04/13/24 23:59 23:59 23:59 23:59 Intake Total 2308.4 1851.8 1960 Output Total 800 0 Balance 2308.4 1051.8 1959 Meds/Results Medications: Active Medications Generic Name Dose Route Start Last Admin Trade Name Freq PRN Reason Stop Dose Admin Acetaminophen 650 mg 04/12/24 14:11 Acetaminophen 325 Mg Tablet PO Q4H PRN Headache Albuterol 2.5 mg 04/12/24 14:15 Albuterol Sulfate Neb 2.5 Mg/3 Ml Inh INHALATION Q4HRT PRN Shortness Of Breath Diltiazem HCl 60 mg 04/12/24 12:35 04/13/24 05:48 Diltiazem Hcl 60 Mg Tablet PO 60 mg Q6HR YONI Administration Enoxaparin Sodium 15
[2024-04-13] MEDS: CEFEPIME 2 GM/NS 50 ML 2 GM/50 ML BAG IVPB ×2 (10:08→21:12)
[2024-04-13] MEDS: guaiFENesin 12 HR 600 MG TABCR 1200 MG PO ×2 (10:08→21:10)
[2024-04-13] MEDS: ENOXAPARIN 80 MG/0.8 ML SYRINGE 150 MG SUB-Q (10:08)
[2024-04-13] MEDS: LACTATED RINGERS 1,000 ML 999 ML IV CONT ×2 (10:08→11:45)
[2024-04-13] MEDS: METOPROLOL TARTRATE 25 MG TABLET PO (10:09)
[2024-04-13] MEDS: LIDOCAINE HCL 1% PF INJ 5 ML VIAL INFILTRATE (13:00)
[2024-04-13] MEDS: DEXTROSE 5% 1,000 ML 1,000 ML 100 ML IV CONT ×2 (16:14)
[2024-04-13 17:45] LABS: Lactic Acid Reflex 1.9 mmol/L (0.7-2.0)
[2024-04-13] MEDS: TOLNAFTATE 1% POWDER 45 GM BTL 1 APPLIC TOPICAL (18:40)
[2024-04-13 20:04] LABS: Anion Gap 6 mmol/L (4-12); Blood Urea Nitrogen 33 mg/dL (7-17); Calcium 8.1 mg/dL (8.4-10.2); Carbon Dioxide 25 mmol/L (22-30); Chloride 109 mmol/L (98-107); Estimated CRCL calculation 57 ml/min; Estimated Glomerular Filt Rate 41; Glucose 163 mg/dL (65-110); Potassium 3.5 mmol/L (3.4-5.0); Sodium 140 mmol/L (137-145)
[2024-04-13 20:10] LABS: MRSA (PCR) NOT DETECTED (NOT DETECTE)
[2024-04-13] MEDS: CENTRAL LINE FLUSH 10 ML IV PUSH (23:02)
[2024-04-14] VITALS (17 sets, daily range): BP systolic 86–117; BP diastolic 65–86; PULSE 61–98; RESP 16–20; TEMP 36.3–36.6; O2SAT 95–98
[2024-04-14 00:47] LABS: Vancomycin Trough 18.3 ug/mL (10.0-20.0)
[2024-04-14] MEDS: DEXTROSE 5% 1,000 ML 1,000 ML 100 ML IV CONT (02:42)
[2024-04-14] MEDS: VANCOMYCIN 1,500 MG/NS 500 ML 1,500 MG/500 ML BAG 250 MG IVPB (02:43)
[2024-04-14] MEDS: TOLNAFTATE 1% POWDER 45 GM BTL 1 APPLIC TOPICAL ×3 (02:44→21:01)
[2024-04-14] MEDS: CENTRAL LINE FLUSH 10 ML IV PUSH ×3 (05:03→21:08)
[2024-04-14 05:06] LABS: Basophils Absolute Auto 0.1 K/mm3 (0.0-0.1); Basophils Percent Auto 0.4 % (0.2-1.2); Eosinophils Absolute Auto 0.5 K/mm3 (0-0.3); Eosinophils Percent Auto 4.3 % (0-4.4); Hematocrit 38.3 % (37.0-47.0); Hemoglobin 12.1 g/dL (12.0-15.0); Immature Granulocyte Absolute 0.25 K/mm3 (0.00-0.031); Immature Granulocyte Percent A 2.2 % (0-0.5); Lymphocytes Absolute Auto 1.68 K/mm3 (0.9-3.2); Lymphocytes Percent Auto 14.7 % (18.3-44.2); Mean Corpuscular HGB Conc 31.6 g/dl (32-36); Mean Corpuscular Hemoglobin 31.2 pg (26-34); Mean Corpuscular Volume 98.7 fl (80-100); Mean Platelet Volume 10.7 fl (7.4-10.4); Monocytes Percent Auto 8.7 % (2.6-8.5); Neutrophils Percent Auto 69.7 % (45.5-73.1); Platelet Count Result 144 k/mm3 (150-375); Red Blood Count 3.88 M/mm3 (4.2-5.4); Red Cell Distribution Width 16.4 % (11.5-14.5); White Blood Count 11.5 K/mm3 (4.5-10.0)
[2024-04-14 05:17] LABS: INR 1.6; Prothrombin Time 19.7 Seconds (11.1-14.7)
[2024-04-14 05:23] LABS: Alanine Aminotransferase 20 U/L (6-35); Albumin Level 2.7 g/dL (3.5-5.1); Alkaline Phosphatase 73 U/L (38-126); Anion Gap 7 mmol/L (4-12); Aspartate Amino Transferase 26 U/L (14-36); Bilirubin,Total 2.3 mg/dL (0.2-1.3); Blood Urea Nitrogen 33 mg/dL (7-17); CRP 4.8 mg/dL (<1.0); Carbon Dioxide 22 mmol/L (22-30); Chloride 110 mmol/L (98-107); Estimated CRCL calculation 61 ml/min; Estimated Glomerular Filt Rate 45; Glucose 110 mg/dL (65-110); Potassium 3.4 mmol/L (3.4-5.0); Sodium 139 mmol/L (137-145)
[2024-04-14] MEDS: SODIUM CHLORIDE 0.9% IV 1,000 ML 100 ML IV CONT ×2 (06:31→20:53)
[2024-04-14] MEDS: SODIUM CHLORIDE 0.9% IV 500 ML IV CONT (06:31)
[2024-04-14 06:46] LABS: Lactic Acid Reflex 2.1 mmol/L (0.7-2.0)
[2024-04-14] MEDS: CEFEPIME 2 GM/NS 50 ML 2 GM/50 ML BAG IVPB (08:48)
[2024-04-14] MEDS: dilTIAZem HCL 60 MG TABLET PO ×3 (08:48→16:47)
[2024-04-14] MEDS: METOPROLOL TARTRATE 25 MG TABLET PO ×2 (08:49→20:59)
[2024-04-14] MEDS: guaiFENesin 12 HR 600 MG TABCR 1200 MG PO ×2 (08:49→20:59)
[2024-04-14 09:33] LABS: Reflex Lactic Acid Yes or No Add Lactic
[2024-04-14 10:20] LABS: Lactic Acid 1.4 mmol/L (0.7-2.0)
--- NOTE | 2024-04-14 10:35 | PCPTNOTE ---
Attempted to see aptient for PT, however patient refused. Patient reported she had a rough night and did not want to work with PT at this time.
--- NOTE | 2024-04-14 10:51 | P.PNIM_ITS ---
Progress Note: A&P Assessment and Plan (1) CAP (community acquired pneumonia): Code(s): J18.9 - Pneumonia, unspecified organism Status: Acute Assessment and Plan: Imaging concerns for possible left basilar atelectasis versus pneumonia * Patient reports congested cough with yellow phlegm * Subjective fever and chills * White count is normal but neutrophils elevated * Initially was started on Rocephin azithromycin however antibiotics were escalated to cefepime and vanc given both recent hospitalization and concerns for possible abdominal infection * Incentive spirometry, pep * Guaifenesin b.i.d. * legionella antigen, mycoplasma IgM, pneumococcal antigen pending * Albuterol nebulizer p.r.n. q.4 04/13: * Continue cefepime, vancomycin * Initial blood cultures have 1/2 bottle with staph epidermis. Repeat cultures ordered * Urine culture pending * WBC slightly increased today 12.5, Cr 1.1, Tbili 3.0 04/14: * E-coli growing in urine culture * Repeat Blood cultures pending * WBC 11.5 today * Afebrile overnight * Can d/c vancomycin today, continue cefepime, azithromycin 5 days (2) Atrial fibrillation with RVR: Code(s): I48.91 - Unspecified atrial fibrillation Status: Acute Assessment and Plan: Atrial fibrillation with RVR on admission with a rate in the 130s * typically on diltiazem 240 mg daily * started on diltiazem gtt * Will start oral diltiazem 60 mg QID per cards * Continue with her metoprolol 25 mg * BNP elevated but likely from demand * TSH normal * Recent echo from December 2023 reviewed shows normal LV function with EF estimated at 50-55%. Moderate to severe mitral valve regurgitation. Moderate tricuspid regurgitation. * Lovenox DVT prophylaxis 04/13: * a-fib, heart rate in the 70's * diltiazem on hold after hypotensive episode this morning * Continue with metoprolol but do not give if SBP less than 110 mm hg 04/14: * A-fib, rate controlled in the 80's * Diltiazem 60 mg QID, hold if SBP less than 100 mm hg (3) Elevated brain natriuretic peptide (BNP) level: Code(s): R79.89 - Other specified abnormal findings of blood chemistry Status: Acute Assessment and Plan: BNP elevated on admission at 7290 * likely secondary to demand from a-fib RVR * also morbidly obese * small, left pleural effusion seen on chest XR today 04/14 * Monitor for fluid overload with IV infusion * ECHO from 12/2023 shows normal LV, RV systolic function with estimated EF at 50-55%, moderate to severe mitral valve regurg, moderate tricuspid regurg (4) UTI (urinary tract infection): Code(s): N39.0 - Urinary tract infection, site not specified Status: Acute Assessment and Plan: UA concerning for infection * Blood and urine culture pending * Procalcitonin negative * initially was started on Rocephin for azithromycin for HAP * Switched to Cefepime and Vancomycin for abdominal coverage of possible necrotizing fasciitis * None the less antibiotics will cover for urinary bug * Lynch in place--urine is clear 04/13: * Urine culture pending * Urine today is pink and cloudy * Will get renal US today 04/14: * UA growing ecoli * renal US shows normal kidneys and possible small amount of ascites in the pelvis * Lynch continues (5) Hypernatremia: Code(s): E87.0 - Hyperosmolality and hypernatremia Status: Acute Assessment and Plan: Sodium 154 on admission. Patient has been down at home for 5 days * tacky mucous membranes * ED gave LR and
--- NOTE | 2024-04-14 10:51 | PM.IMPN ---
Progress Note: A&P Assessment and Plan (1) CAP (community acquired pneumonia): Code(s): J18.9 - Pneumonia, unspecified organism Status: Acute Assessment and Plan: Imaging concerns for possible left basilar atelectasis versus pneumonia Patient reports congested cough with yellow phlegm Subjective fever and chills White count is normal but neutrophils elevated Initially was started on Rocephin azithromycin however antibiotics were escalated to cefepime and vanc given both recent hospitalization and concerns for possible abdominal infection Incentive spirometry, pep Guaifenesin b.i.d. legionella antigen, mycoplasma IgM, pneumococcal antigen pending Albuterol nebulizer p.r.n. q.4 04/13: Continue cefepime, vancomycin Initial blood cultures have 1/2 bottle with staph epidermis. Repeat cultures ordered Urine culture pending WBC slightly increased today 12.5, Cr 1.1, Tbili 3.0 04/14: E-coli growing in urine culture Repeat Blood cultures pending WBC 11.5 today Afebrile overnight Can d/c vancomycin today, continue cefepime, azithromycin 5 days (2) Atrial fibrillation with RVR: Code(s): I48.91 - Unspecified atrial fibrillation Status: Acute Assessment and Plan: Atrial fibrillation with RVR on admission with a rate in the 130s typically on diltiazem 240 mg daily started on diltiazem gtt Will start oral diltiazem 60 mg QID per cards Continue with her metoprolol 25 mg BNP elevated but likely from demand TSH normal Recent echo from December 2023 reviewed shows normal LV function with EF estimated at 50-55%. Moderate to severe mitral valve regurgitation. Moderate tricuspid regurgitation. Lovenox DVT prophylaxis 04/13: a-fib, heart rate in the 70's diltiazem on hold after hypotensive episode this morning Continue with metoprolol but do not give if SBP less than 110 mm hg 04/14: A-fib, rate controlled in the 80's Diltiazem 60 mg QID, hold if SBP less than 100 mm hg (3) Elevated brain natriuretic peptide (BNP) level: Code(s): R79.89 - Other specified abnormal findings of blood chemistry Status: Acute Assessment and Plan: BNP elevated on admission at 7290 likely secondary to demand from a-fib RVR also morbidly obese small, left pleural effusion seen on chest XR today 04/14 Monitor for fluid overload with IV infusion ECHO from 12/2023 shows normal LV, RV systolic function with estimated EF at 50-55%, moderate to severe mitral valve regurg, moderate tricuspid regurg (4) UTI (urinary tract infection): Code(s): N39.0 - Urinary tract infection, site not specified Status: Acute Assessment and Plan: UA concerning for infection Blood and urine culture pending Procalcitonin negative initially was started on Rocephin for azithromycin for HAP Switched to Cefepime and Vancomycin for abdominal coverage of possible necrotizing fasciitis None the less antibiotics will cover for urinary bug Lynch in place--urine is clear 04/13: Urine culture pending Urine today is pink and cloudy Will get renal US today 04/14: UA growing ecoli renal US shows normal kidneys and possible small amount of ascites in the pelvis Lynch continues (5) Hypernatremia: Code(s): E87.0 - Hyperosmolality and hypernatremia Status: Acute Assessment and Plan: Sodium 154 on admission. Patient has been down at home for 5 days tacky mucous membranes ED gave LR and D51/2 NS---stopped and started D5W @ 100 ml per hour Repeat BMP this afternoon at 1500 04/13: Sodium has improved. Na+ 142 RESOLVED (6) Wounds, multiple: Code(s): T07.XXXA - Unspecified multiple injuries, initial encounter Status: Chronic Assessment and Plan: Photos were taken BLE wounds in various stages of healing--clean with soap and water, apply thin layer of silver gel to open areas with yellow slough, cover with
[2024-04-14] MEDS: AZITHROMYCIN 250 MG TABLET 500 MG PO (12:17)
--- NOTE | 2024-04-14 15:07 | PCOTNOTE ---
The patient treatment was not able to be completed at 14:56 on this date due to working with PT at this time. Will plan to continue treatment per plan of care.
[2024-04-14] MEDS: RIVAROXABAN 20 MG TABLET PO (16:47)
[2024-04-14] MEDS: cefTRIAXone 2 GM/NS 100 ML 2 GM/100 ML BAG IVPB (20:54)
[2024-04-15] VITALS (12 sets, daily range): BP systolic 100–119; BP diastolic 59–83; PULSE 69–89; RESP 18–26; TEMP 36.2–37; O2SAT 95–100
[2024-04-15 05:06] LABS: Basophils Absolute Auto 0.1 K/mm3 (0.0-0.1); Basophils Percent Auto 0.5 % (0.2-1.2); Eosinophils Absolute Auto 0.6 K/mm3 (0-0.3); Eosinophils Percent Auto 5.2 % (0-4.4); Hematocrit 36.2 % (37.0-47.0); Hemoglobin 11.2 g/dL (12.0-15.0); Immature Granulocyte Absolute 0.21 K/mm3 (0.00-0.031); Immature Granulocyte Percent A 1.9 % (0-0.5); Lymphocytes Absolute Auto 1.34 K/mm3 (0.9-3.2); Lymphocytes Percent Auto 11.8 % (18.3-44.2); Mean Corpuscular HGB Conc 30.9 g/dl (32-36); Mean Corpuscular Hemoglobin 30.7 pg (26-34); Mean Corpuscular Volume 99.2 fl (80-100); Mean Platelet Volume 10.7 fl (7.4-10.4); Monocytes Percent Auto 8.8 % (2.6-8.5); Neutrophils Absolute Auto 8.2 K/mm3 (1.3-6.7); Neutrophils Percent Auto 71.8 % (45.5-73.1); Platelet Count Result 140 k/mm3 (150-375); Red Blood Count 3.65 M/mm3 (4.2-5.4); Red Cell Distribution Width 16.4 % (11.5-14.5); White Blood Count 11.4 K/mm3 (4.5-10.0)
[2024-04-15 05:21] LABS: Alanine Aminotransferase 16 U/L (6-35); Albumin Level 2.4 g/dL (3.5-5.1); Alkaline Phosphatase 77 U/L (38-126); Anion Gap 6 mmol/L (4-12); Aspartate Amino Transferase 22 U/L (14-36); Bilirubin,Total 1.5 mg/dL (0.2-1.3); Blood Urea Nitrogen 30 mg/dL (7-17); CRP 3.4 mg/dL (<1.0); Calcium 6.8 mg/dL (8.4-10.2); Carbon Dioxide 20 mmol/L (22-30); Chloride 112 mmol/L (98-107); Estimated CRCL calculation 74 ml/min; Estimated Glomerular Filt Rate 56; Glucose 110 mg/dL (65-110); Potassium 2.9 mmol/L (3.4-5.0); Sodium 138 mmol/L (137-145)
[2024-04-15] MEDS: SODIUM CHLORIDE 0.9% IV 1,000 ML 100 ML IV CONT ×2 (06:47→14:25)
[2024-04-15] MEDS: CENTRAL LINE FLUSH 10 ML IV PUSH ×3 (06:48→22:47)
[2024-04-15] MEDS: dilTIAZem HCL 60 MG TABLET PO ×3 (06:49→17:15)
[2024-04-15] MEDS: AZITHROMYCIN 250 MG TABLET 500 MG PO (08:45)
[2024-04-15] MEDS: METOPROLOL TARTRATE 25 MG TABLET PO ×2 (08:46→20:58)
[2024-04-15] MEDS: guaiFENesin 12 HR 600 MG TABCR 1200 MG PO ×2 (09:00→20:59)
--- NOTE | 2024-04-15 09:49 | P.PNIM_ITS ---
Progress Note: A&P Assessment and Plan (1) CAP (community acquired pneumonia): Code(s): J18.9 - Pneumonia, unspecified organism Status: Acute Assessment and Plan: Imaging concerns for possible left basilar atelectasis versus pneumonia * Subjective fever and chills * White count is normal but neutrophils elevated * Initially was started on Rocephin azithromycin however antibiotics were escalated to cefepime and vanc given both recent hospitalization and concerns for possible abdominal infection * Incentive spirometry, pep * Guaifenesin b.i.d. * Region antigen, mycoplasma IgM, pneumococcal antigen pending * Albuterol nebulizer p.r.n. q.4 (2) Atrial fibrillation with RVR: Code(s): I48.91 - Unspecified atrial fibrillation Status: Acute Assessment and Plan: Atrial fibrillation with RVR on admission with a rate in the 130s * typically on diltiazem 240 mg daily * started on diltiazem gtt * Will start oral diltiazem 60 mg QID per cards * Continue with her metoprolol 25 mg * BNP elevated but likely from demand * TSH normal * Recent echo from December 2023 reviewed shows normal LV function with EF estimated at 50-55%. Moderate to severe mitral valve regurgitation. Moderate tricuspid regurgitation. * Xarelto currently on hold in case she needs surgical intervention for abdominal wound * Lovenox DVT prophylaxis * * card consulted- Rate controlled. Continue diltiazem 60mg q6h. Can switch this to her long-acting Diltiazem upon discharge. Continue metoprolol. Oral anticoagulation with rivaroxaban 20 mg daily. (3) Elevated brain natriuretic peptide (BNP) level: Code(s): R79.89 - Other specified abnormal findings of blood chemistry Status: Acute (4) UTI (urinary tract infection): Code(s): N39.0 - Urinary tract infection, site not specified Status: Acute Assessment and Plan: UA concerning for infection * Blood and urine culture pending * Procalcitonin negative * initially was started on Rocephin for azithromycin for HAP * Switched to Cefepime and Vancomycin for abdominal coverage of possible necrotizing fasciitis * None the less antibiotics will cover for urinary bug * Lynch in place--urine is clear (5) Hypernatremia: Code(s): E87.0 - Hyperosmolality and hypernatremia Status: Acute Assessment and Plan: Sodium 154 on admission. Patient has been down at home for 5 days * NS @ 100 ml per hour * monitor (6) Wounds, multiple: Code(s): T07.XXXA - Unspecified multiple injuries, initial encounter Status: Chronic Assessment and Plan: * Photos were taken * BLE wounds in various stages of healing--clean with soap and water, apply thin layer of silver gel to open areas with yellow slough, cover with Vaseline or Adaptic gauze, ABD pad and then wrap with Kerlix. Change dressing b.i.d. or as needed * Wounds to bilateral arms covered with Mepilex * Abdominal wound with c/o necrotic tissue, yellow and pale pink wound bed with foul smell. * CT was ordered to assess for possible necrotizing fasciitis. Unable to do CT due to body habitus. * US ordered instead * CRP elevated * Wound consult placed and rec's appreciated (7) Fall: Code(s): W19.XXXA - Unspecified fall, initial encounter Status: Acute Assessment and Plan: Mechanical fall at home * Urine drug screen pending * Ethanol less than 10 * PT OT consult * Patient is likely going to need SNF placement Plan Feeding: Heart healthy diet Analgesia: Tylenol Thrombo
--- NOTE | 2024-04-15 09:49 | PM.IMPN ---
Progress Note: A&P Assessment and Plan (1) CAP (community acquired pneumonia): Code(s): J18.9 - Pneumonia, unspecified organism Status: Acute Assessment and Plan: Imaging concerns for possible left basilar atelectasis versus pneumonia Subjective fever and chills White count is normal but neutrophils elevated Initially was started on Rocephin azithromycin however antibiotics were escalated to cefepime and vanc given both recent hospitalization and concerns for possible abdominal infection Incentive spirometry, pep Guaifenesin b.i.d. Region antigen, mycoplasma IgM, pneumococcal antigen pending Albuterol nebulizer p.r.n. q.4 (2) Atrial fibrillation with RVR: Code(s): I48.91 - Unspecified atrial fibrillation Status: Acute Assessment and Plan: Atrial fibrillation with RVR on admission with a rate in the 130s typically on diltiazem 240 mg daily started on diltiazem gtt Will start oral diltiazem 60 mg QID per cards Continue with her metoprolol 25 mg BNP elevated but likely from demand TSH normal Recent echo from December 2023 reviewed shows normal LV function with EF estimated at 50-55%. Moderate to severe mitral valve regurgitation. Moderate tricuspid regurgitation. Xarelto currently on hold in case she needs surgical intervention for abdominal wound Lovenox DVT prophylaxis card consulted- Rate controlled. Continue diltiazem 60mg q6h. Can switch this to her long-acting Diltiazem upon discharge. Continue metoprolol. Oral anticoagulation with rivaroxaban 20 mg daily. (3) Elevated brain natriuretic peptide (BNP) level: Code(s): R79.89 - Other specified abnormal findings of blood chemistry Status: Acute (4) UTI (urinary tract infection): Code(s): N39.0 - Urinary tract infection, site not specified Status: Acute Assessment and Plan: UA concerning for infection Blood and urine culture pending Procalcitonin negative initially was started on Rocephin for azithromycin for HAP Switched to Cefepime and Vancomycin for abdominal coverage of possible necrotizing fasciitis None the less antibiotics will cover for urinary bug Lynch in place--urine is clear (5) Hypernatremia: Code(s): E87.0 - Hyperosmolality and hypernatremia Status: Acute Assessment and Plan: Sodium 154 on admission. Patient has been down at home for 5 days NS @ 100 ml per hour monitor (6) Wounds, multiple: Code(s): T07.XXXA - Unspecified multiple injuries, initial encounter Status: Chronic Assessment and Plan: Photos were taken BLE wounds in various stages of healing--clean with soap and water, apply thin layer of silver gel to open areas with yellow slough, cover with Vaseline or Adaptic gauze, ABD pad and then wrap with Kerlix. Change dressing b.i.d. or as needed Wounds to bilateral arms covered with Mepilex Abdominal wound with c/o necrotic tissue, yellow and pale pink wound bed with foul smell. CT was ordered to assess for possible necrotizing fasciitis. Unable to do CT due to body habitus. US ordered instead CRP elevated Wound consult placed and rec's appreciated (7) Fall: Code(s): W19.XXXA - Unspecified fall, initial encounter Status: Acute Assessment and Plan: Mechanical fall at home Urine drug screen pending Ethanol less than 10 PT OT consult Patient is likely going to need SNF placement Plan Feeding: Heart healthy diet Analgesia: Tylenol Thromboembolic prophylaxis: Lovenox Lines: PIV Antibiotics: Cefepime, vancomycin Disposition: Likely SNF Time Spent With Patient Time with patient: 25 - 35 minutes Subjective Date/time seen: 04/15/24 09:49 Interval history: This is a 63-year-old female with a past medical history of cervical cancer status post hysterectomy, super morbid obesity, chronic lymphedema and longstanding paroxysmal atrial fibrillation (not on anticoagulation) and
[2024-04-15] MEDS: TOLNAFTATE 1% POWDER 45 GM BTL 1 APPLIC TOPICAL (10:00)
[2024-04-15] MEDS: KCL 20 MEQ/SW 100 ML 100 ML 50 MEQ IVPB (13:00)
--- NOTE | 2024-04-15 13:01 | PM.PNCARD ---
Progress Note: A&P Assessment and Plan (1) Atrial fibrillation with RVR: Code(s): I48.91 - Unspecified atrial fibrillation Status: Acute Plan Persistent atrial fibrillation Status post fall mechanical Morbid obesity Dehydration on presentation PLAN: Rate controlled. Continue Continue diltiazem 60mg q6h. Can switch this to her long-acting Diltiazem upon discharge. Continue metoprolol. Oral anticoagulation with rivaroxaban 20 mg daily. Okay for discharge from a cardiology standpoint. Will arrange for outpatient follow up. Recommendations and plan discussed with Hospitalist. Cardiology will sign off at this time. Subjective Date/time seen: 04/15/24 13:01 Interval history: Cardiology follow up for atrial fibrillation She is currently rate controlled on current regimen. Quite sleepy today, but reports she is feeling well. Review of Systems Review of Systems: All systems reviewed & are unremarkable except as noted in HPI and below (HPI) Exam Const: General: comfortable and no acute distress HENMT: Mouth: Yes moist mucous membranes Eyes: General: appearance normal, both eyes and all related structures Sclera: sclerae normal Resp: Effort & Inspection: normal respiratory effort Cardio: Rhythm: abnormal rhythm irregularly irregular Skin: General skin exam: normal color Neuro: Speech: normal speech Psych: Mental Status: mental status grossly normal Affect: normal affect Objective Data Vital Signs Vital Signs: Vital Signs - 24 hr 04/14/24 14:00 04/14/24 16:00 04/14/24 16:00 Temperature 36.6 C Pulse Rate 92 82 82 Respiratory Rate 20 Blood Pressure 117/86 Pulse Oximetry 95 Oxygen Delivery 04/14/24 18:00 04/14/24 16:00 04/14/24 19:59 Temperature 36.4 C Pulse Rate 71 61 Respiratory Rate 20 Blood Pressure 114/72 Pulse Oximetry 97 Oxygen Delivery Room Air 04/14/24 20:00 04/14/24 22:00 04/15/24 00:48 Temperature 36.6 C Pulse Rate 78 76 69 Respiratory Rate 20 Blood Pressure 100/66 Pulse Oximetry 99 Oxygen Delivery 04/15/24 02:00 04/15/24 04:00 04/15/24 05:29 Temperature Pulse Rate 70 82 71 Respiratory Rate Blood Pressure Pulse Oximetry Oxygen Delivery 04/15/24 04:00 04/15/24 08:46 04/15/24 08:00 Temperature 36.6 C 36.4 C L Pulse Rate 86 89 82 Respiratory Rate 18 26 H Blood Pressure 104/74 112/72 Pulse Oximetry 99 97 Oxygen Delivery 04/15/24 08:00 04/15/24 08:00 Temperature Pulse Rate 89 Respiratory Rate Blood Pressure Pulse Oximetry Oxygen Delivery Room Air Intake/Output Intake/Output: Intake & Output 04/12/24 04/13/24 04/14/24 04/15/24 23:59 23:59 23:59 23:59 Intake Total 1851.8 4240 3675 1230 Output Total 800 475 125 400 Balance 1051.8 3765 3550 830 Meds/Results Medications: Active Medications Generic Name Dose Route Start Last Admin Trade Name Freq PRN Reason Stop Dose Admin Acetaminophen 650 mg 04/12/24 14:11 Acetaminophen 325 Mg Tablet PO Q4H PRN Headache Albuterol 2.5 mg 04/12/24 14:15 Albuterol Sulfate Neb 2.5 Mg/3 Ml Inh INHALATION Q4HRT PRN Shortness Of Breath Azithromycin 500 mg 04/14/24 10:55 04/15/24 08:45 Azithromycin 250 Mg Tablet PO 04/18/24 21:00 500 mg DAILY YONI Administration Diltiazem HCl 60 mg 04/14/24 09:00 04/15/24 06:49 Diltiazem Hcl 60 Mg Tablet PO 60 mg Q6HR YONI Administration Guaifenesin 1,200 mg 04/12/24 14:30 04/15/24 08:46 Guaifenesin 12 Hr 600 Mg Tabcr PO 1,200 mg Q12HR YONI Administration Sodium Chloride 1,000 mls @ 100 mls/hr 04/14/24 05:50 04/15/24 06:47 Normal Saline Iv IV CONT 100 mls/hr .Q10H YONI Administration Ceftriaxone Sodium 2 gm in 100 mls @ 200 mls/hr 04/14/24 21:00 04/14/24 20:54 Rocephin 2 Gm/Ns 100 Ml IVPB 200 mls/hr Q24H YONI Administration Metoprolol Tartrate 25 mg 04/12/24 21:00 04/15/24 08:46 Metoprolol Tartrate
[2024-04-15] MEDS: RIVAROXABAN 20 MG TABLET PO (17:14)
--- NOTE | 2024-04-15 17:58 | PC.NURSE ---
This patient, Pili Forrester, was received from [[facility]] on 04/15/24 at 1758. Patient/family oriented to unit policies and routine. Report from Missy
[2024-04-15 18:38] LABS: Pneumococcal Antigen Urine NOT DETECTED
[2024-04-15] MEDS: cefTRIAXone 2 GM/NS 100 ML 2 GM/100 ML BAG IVPB (20:57)
[2024-04-16] VITALS (11 sets, daily range): BP systolic 99–108; BP diastolic 69–90; PULSE 56–83; RESP 20–22; TEMP 36.1–36.8; O2SAT 91–100
[2024-04-16] MEDS: TOLNAFTATE 1% POWDER 45 GM BTL 1 APPLIC TOPICAL ×3 (00:46→20:25)
[2024-04-16] MEDS: SODIUM CHLORIDE 0.9% IV 1,000 ML 100 ML IV CONT (00:46)
[2024-04-16] MEDS: dilTIAZem HCL 60 MG TABLET PO ×5 (00:46→23:39)
[2024-04-16 05:35] LABS: Basophils Percent Auto 0.4 % (0.2-1.2); Eosinophils Absolute Auto 0.6 K/mm3 (0-0.3); Eosinophils Percent Auto 5.4 % (0-4.4); Hematocrit 38.7 % (37.0-47.0); Hemoglobin 12.3 g/dL (12.0-15.0); Immature Granulocyte Absolute 0.15 K/mm3 (0.00-0.031); Immature Granulocyte Percent A 1.4 % (0-0.5); Lymphocytes Absolute Auto 1.32 K/mm3 (0.9-3.2); Lymphocytes Percent Auto 12.5 % (18.3-44.2); Mean Corpuscular HGB Conc 31.8 g/dl (32-36); Mean Corpuscular Hemoglobin 31.1 pg (26-34); Mean Platelet Volume 10.5 fl (7.4-10.4); Monocytes Percent Auto 9.6 % (2.6-8.5); Neutrophils Absolute Auto 7.5 K/mm3 (1.3-6.7); Neutrophils Percent Auto 70.7 % (45.5-73.1); Platelet Count Result 177 k/mm3 (150-375); Red Blood Count 3.95 M/mm3 (4.2-5.4); Red Cell Distribution Width 16.8 % (11.5-14.5); White Blood Count 10.5 K/mm3 (4.5-10.0)
[2024-04-16 05:50] LABS: Alanine Aminotransferase 21 U/L (6-35); Alkaline Phosphatase 105 U/L (38-126); Anion Gap 5 mmol/L (4-12); Aspartate Amino Transferase 32 U/L (14-36); Bilirubin,Total 1.5 mg/dL (0.2-1.3); Blood Urea Nitrogen 31 mg/dL (7-17); CRP 2.6 mg/dL (<1.0); Carbon Dioxide 22 mmol/L (22-30); Chloride 108 mmol/L (98-107); Estimated CRCL calculation 69 ml/min; Estimated Glomerular Filt Rate 50; Glucose 92 mg/dL (65-110); Magnesium 2.1 mg/dL (1.6-2.3); Potassium 3.6 mmol/L (3.4-5.0); Sodium 135 mmol/L (137-145)
--- NOTE | 2024-04-16 07:31 | P.PNIM_ITS ---
Progress Note: A&P Assessment and Plan (1) CAP (community acquired pneumonia): Code(s): J18.9 - Pneumonia, unspecified organism Status: Acute Assessment and Plan: Imaging concerns for possible left basilar atelectasis versus pneumonia * Subjective fever and chills * White count is normal but neutrophils elevated * Initially was started on Rocephin azithromycin however antibiotics were escalated to cefepime and vanc given both recent hospitalization and concerns for possible abdominal infection * Incentive spirometry, pep * Guaifenesin b.i.d. * Region antigen, mycoplasma IgM, pneumococcal antigen pending * Albuterol nebulizer p.r.n. q.4 04/16-complete zithromax-last dose on continue IS, ambulation (2) Atrial fibrillation with RVR: Code(s): I48.91 - Unspecified atrial fibrillation Status: Acute Assessment and Plan: Atrial fibrillation with RVR on admission with a rate in the 130s * typically on diltiazem 240 mg daily * started on diltiazem gtt * Will start oral diltiazem 60 mg QID per cards * Continue with her metoprolol 25 mg * BNP elevated but likely from demand * TSH normal * Recent echo from December 2023 reviewed shows normal LV function with EF estimated at 50-55%. Moderate to severe mitral valve regurgitation. Moderate tricuspid regurgitation. * Xarelto currently on hold in case she needs surgical intervention for abdominal wound * Lovenox DVT prophylaxis * * card consulted- Rate controlled. Continue diltiazem 60mg q6h. Can switch this to her long-acting Diltiazem upon discharge. Continue metoprolol. Oral anticoagulation with rivaroxaban 20 mg daily. 04/16- stable- continue cardizem (3) Elevated brain natriuretic peptide (BNP) level: Code(s): R79.89 - Other specified abnormal findings of blood chemistry Status: Acute (4) UTI (urinary tract infection): Code(s): N39.0 - Urinary tract infection, site not specified Status: Acute Assessment and Plan: UA concerning for infection * Blood and urine culture pending * Procalcitonin negative * initially was started on Rocephin for azithromycin for HAP * Switched to Cefepime and Vancomycin for abdominal coverage of possible necrotizing fasciitis * None the less antibiotics will cover for urinary bug * Lynch in place--urine is clear * - 04/16-continue antibiotics for UTI (5) Wounds, multiple: Code(s): T07.XXXA - Unspecified multiple injuries, initial encounter Status: Chronic Assessment and Plan: * Photos were taken * BLE wounds in various stages of healing--clean with soap and water, apply thin layer of silver gel to open areas with yellow slough, cover with Vaseline or Adaptic gauze, ABD pad and then wrap with Kerlix. Change dressing b.i.d. or as needed * Wounds to bilateral arms covered with Mepilex * Abdominal wound with c/o necrotic tissue, yellow and pale pink wound bed with foul smell. * CT was ordered to assess for possible necrotizing fasciitis. Unable to do CT due to body habitus. * US ordered instead * CRP elevated * Wound consult placed and rec's appreciated (6) Fall: Code(s): W19.XXXA - Unspecified fall, initial encounter Status: Acute Assessment and Plan: Mechanical fall at home * Urine drug screen pending * Ethanol less than 10 * PT OT consult * Patient is likely going to need SNF placement Plan Feeding: Heart healthy diet Analgesia: Tylenol Thromboembolic prophylaxis: Lovenox Lines: PIV Antibiotics: Cefepime, vancomycin Disposition: Likely SNF Time S
--- NOTE | 2024-04-16 07:31 | PM.IMPN ---
Progress Note: A&P Assessment and Plan (1) CAP (community acquired pneumonia): Code(s): J18.9 - Pneumonia, unspecified organism Status: Acute Assessment and Plan: Imaging concerns for possible left basilar atelectasis versus pneumonia Subjective fever and chills White count is normal but neutrophils elevated Initially was started on Rocephin azithromycin however antibiotics were escalated to cefepime and vanc given both recent hospitalization and concerns for possible abdominal infection Incentive spirometry, pep Guaifenesin b.i.d. Region antigen, mycoplasma IgM, pneumococcal antigen pending Albuterol nebulizer p.r.n. q.4 04/16-complete zithromax-last dose on continue IS, ambulation (2) Atrial fibrillation with RVR: Code(s): I48.91 - Unspecified atrial fibrillation Status: Acute Assessment and Plan: Atrial fibrillation with RVR on admission with a rate in the 130s typically on diltiazem 240 mg daily started on diltiazem gtt Will start oral diltiazem 60 mg QID per cards Continue with her metoprolol 25 mg BNP elevated but likely from demand TSH normal Recent echo from December 2023 reviewed shows normal LV function with EF estimated at 50-55%. Moderate to severe mitral valve regurgitation. Moderate tricuspid regurgitation. Xarelto currently on hold in case she needs surgical intervention for abdominal wound Lovenox DVT prophylaxis card consulted- Rate controlled. Continue diltiazem 60mg q6h. Can switch this to her long-acting Diltiazem upon discharge. Continue metoprolol. Oral anticoagulation with rivaroxaban 20 mg daily. 04/16- stable- continue cardizem (3) Elevated brain natriuretic peptide (BNP) level: Code(s): R79.89 - Other specified abnormal findings of blood chemistry Status: Acute (4) UTI (urinary tract infection): Code(s): N39.0 - Urinary tract infection, site not specified Status: Acute Assessment and Plan: UA concerning for infection Blood and urine culture pending Procalcitonin negative initially was started on Rocephin for azithromycin for HAP Switched to Cefepime and Vancomycin for abdominal coverage of possible necrotizing fasciitis None the less antibiotics will cover for urinary bug Lynch in place--urine is clear - 04/16-continue antibiotics for UTI (5) Wounds, multiple: Code(s): T07.XXXA - Unspecified multiple injuries, initial encounter Status: Chronic Assessment and Plan: Photos were taken BLE wounds in various stages of healing--clean with soap and water, apply thin layer of silver gel to open areas with yellow slough, cover with Vaseline or Adaptic gauze, ABD pad and then wrap with Kerlix. Change dressing b.i.d. or as needed Wounds to bilateral arms covered with Mepilex Abdominal wound with c/o necrotic tissue, yellow and pale pink wound bed with foul smell. CT was ordered to assess for possible necrotizing fasciitis. Unable to do CT due to body habitus. US ordered instead CRP elevated Wound consult placed and rec's appreciated (6) Fall: Code(s): W19.XXXA - Unspecified fall, initial encounter Status: Acute Assessment and Plan: Mechanical fall at home Urine drug screen pending Ethanol less than 10 PT OT consult Patient is likely going to need SNF placement Plan Feeding: Heart healthy diet Analgesia: Tylenol Thromboembolic prophylaxis: Lovenox Lines: PIV Antibiotics: Cefepime, vancomycin Disposition: Likely SNF Time Spent With Patient Time with patient: 25 - 35 minutes Subjective Date/time seen: 04/16/24 07:31 Interval history: This is a 63-year-old female with a past medical history of cervical cancer status post hysterectomy, super morbid obesity, chronic lymphedema and longstanding paroxysmal atrial fibrillation (not on anticoagulation) and family history of kidney stones who presented to the ER via EMS after being found down at home by
[2024-04-16] MEDS: POTASSIUM CHLORIDE 20 MEQ PACKET (FOR LIQUID) 40 MEQ PO (09:18)
[2024-04-16] MEDS: METOPROLOL TARTRATE 25 MG TABLET PO ×2 (09:19→20:23)
[2024-04-16] MEDS: AZITHROMYCIN 250 MG TABLET 500 MG PO (09:19)
[2024-04-16] MEDS: guaiFENesin 12 HR 600 MG TABCR 1200 MG PO ×2 (09:19→20:23)
--- NOTE | 2024-04-16 11:52 | PCPTNOTE ---
Attempted to see patient for PT, however patient was eating lunch.
[2024-04-16] MEDS: CENTRAL LINE FLUSH 10 ML IV PUSH ×2 (13:16→20:26)
--- NOTE | 2024-04-16 14:19 | PCPTNOTE ---
Attempted to see patient for PT, however patient declined. 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
[2024-04-16] MEDS: RIVAROXABAN 20 MG TABLET PO (17:09)
[2024-04-16] MEDS: AMOXICILLIN/CLAVULANATE K 875-125 MG TAB 1 TABLET PO (20:23)
[2024-04-17] VITALS (10 sets, daily range): BP systolic 102–117; BP diastolic 68–75; PULSE 62–100; RESP 19–22; TEMP 36.1–36.3; O2SAT 97–100
[2024-04-17] MEDS: dilTIAZem HCL 60 MG TABLET PO (05:31)
[2024-04-17] MEDS: CENTRAL LINE FLUSH 10 ML IV PUSH ×3 (05:35→21:10)
[2024-04-17 06:35] LABS: Basophils Absolute Auto 0.1 K/mm3 (0.0-0.1); Basophils Percent Auto 0.6 % (0.2-1.2); Eosinophils Absolute Auto 0.4 K/mm3 (0-0.3); Eosinophils Percent Auto 4.6 % (0-4.4); Hematocrit 38.3 % (37.0-47.0); Hemoglobin 11.8 g/dL (12.0-15.0); Immature Granulocyte Absolute 0.13 K/mm3 (0.00-0.031); Immature Granulocyte Percent A 1.4 % (0-0.5); Lymphocytes Absolute Auto 1.27 K/mm3 (0.9-3.2); Lymphocytes Percent Auto 13.5 % (18.3-44.2); Mean Corpuscular HGB Conc 30.8 g/dl (32-36); Mean Corpuscular Hemoglobin 31.1 pg (26-34); Mean Corpuscular Volume 100.8 fl (80-100); Mean Platelet Volume 10.9 fl (7.4-10.4); Monocytes Percent Auto 10.1 % (2.6-8.5); Neutrophils Absolute Auto 6.6 K/mm3 (1.3-6.7); Neutrophils Percent Auto 69.8 % (45.5-73.1); Platelet Count Result 197 k/mm3 (150-375); Red Cell Distribution Width 17.2 % (11.5-14.5); White Blood Count 9.4 K/mm3 (4.5-10.0)
[2024-04-17 06:48] LABS: Alanine Aminotransferase 21 U/L (6-35); Albumin Level 2.8 g/dL (3.5-5.1); Alkaline Phosphatase 103 U/L (38-126); Anion Gap 6 mmol/L (4-12); Aspartate Amino Transferase 35 U/L (14-36); Bilirubin,Total 1.5 mg/dL (0.2-1.3); Blood Urea Nitrogen 33 mg/dL (7-17); CRP 1.7 mg/dL (<1.0); Calcium 8.1 mg/dL (8.4-10.2); Carbon Dioxide 21 mmol/L (22-30); Chloride 108 mmol/L (98-107); Estimated CRCL calculation 77 ml/min; Estimated Glomerular Filt Rate 56; Glucose 91 mg/dL (65-110); Potassium 3.8 mmol/L (3.4-5.0); Sodium 135 mmol/L (137-145)
--- NOTE | 2024-04-17 08:02 | P.PNIM_ITS ---
Progress Note: A&P Assessment and Plan (1) CAP (community acquired pneumonia): Code(s): J18.9 - Pneumonia, unspecified organism Status: Acute Assessment and Plan: * Initially was started on Rocephin azithromycin however antibiotics were escalated to cefepime and vanc given both recent hospitalization and concerns for possible abdominal infection * Incentive spirometry, pep * Guaifenesin b.i.d. * Region antigen, mycoplasma IgM, pneumococcal antigen pending * Albuterol nebulizer p.r.n. q.4 04/16-complete zithromax-last dose on - continue IS, ambulation (2) Atrial fibrillation with RVR: Code(s): I48.91 - Unspecified atrial fibrillation Status: Acute Assessment and Plan: Atrial fibrillation with RVR on admission with a rate in the 130s * typically on diltiazem 240 mg daily * started on diltiazem gtt * Will start oral diltiazem 60 mg QID per cards * Continue with her metoprolol 25 mg * BNP elevated but likely from demand * TSH normal * Recent echo from December 2023 reviewed shows normal LV function with EF estimated at 50-55%. Moderate to severe mitral valve regurgitation. Moderate tricuspid regurgitation. * Xarelto currently on hold in case she needs surgical intervention for abdominal wound * Lovenox DVT prophylaxis * * card consulted- Rate controlled. Continue diltiazem 60mg q6h. Can switch this to her long-acting Diltiazem upon discharge. Continue metoprolol. Oral anticoagulation with rivaroxaban 20 mg daily. 04/16- stable- continue cardizem 04/17- stable-continue (3) Elevated brain natriuretic peptide (BNP) level: Code(s): R79.89 - Other specified abnormal findings of blood chemistry Status: Acute (4) UTI (urinary tract infection): Code(s): N39.0 - Urinary tract infection, site not specified Status: Acute Assessment and Plan: UA concerning for infection * Blood and urine culture pending * Procalcitonin negative * initially was started on Rocephin for azithromycin for HAP * Switched to Cefepime and Vancomycin for abdominal coverage of possible necrotizing fasciitis * None the less antibiotics will cover for urinary bug * Lynch in place--urine is clear * 04/16-continue antibiotics for UTI * 04/17- improving-continue - remove Lynch (5) Wounds, multiple: Code(s): T07.XXXA - Unspecified multiple injuries, initial encounter Status: Chronic Assessment and Plan: * Photos were taken * BLE wounds in various stages of healing--clean with soap and water, apply thin layer of silver gel to open areas with yellow slough, cover with Vaseline or Adaptic gauze, ABD pad and then wrap with Kerlix. Change dressing b.i.d. or as needed * Wounds to bilateral arms covered with Mepilex * Abdominal wound with c/o necrotic tissue, yellow and pale pink wound bed with foul smell. * CT was ordered to assess for possible necrotizing fasciitis. Unable to do CT due to body habitus. * US completed * CRP elevated-but trending down now * Wound consulted and rec's appreciated (6) Fall: Code(s): W19.XXXA - Unspecified fall, initial encounter Status: Acute Assessment and Plan: Mechanical fall at home * Ethanol less than 10 * PT OT * SNF placement Plan Feeding: Heart healthy diet Analgesia: Tylenol Thromboembolic prophylaxis: Lovenox Lines: PIV Antibiotics: Cefepime, vancomycin Disposition: Likely SNF Time Spent With Patient Time with patient: 25 - 35 minutes Subjective Date/time seen: 04/17/24 08:02 Interval h
--- NOTE | 2024-04-17 08:02 | PM.IMPN ---
Progress Note: A&P Assessment and Plan (1) CAP (community acquired pneumonia): Code(s): J18.9 - Pneumonia, unspecified organism Status: Acute Assessment and Plan: Initially was started on Rocephin azithromycin however antibiotics were escalated to cefepime and vanc given both recent hospitalization and concerns for possible abdominal infection Incentive spirometry, pep Guaifenesin b.i.d. Region antigen, mycoplasma IgM, pneumococcal antigen pending Albuterol nebulizer p.r.n. q.4 04/16-complete zithromax-last dose on - continue IS, ambulation (2) Atrial fibrillation with RVR: Code(s): I48.91 - Unspecified atrial fibrillation Status: Acute Assessment and Plan: Atrial fibrillation with RVR on admission with a rate in the 130s typically on diltiazem 240 mg daily started on diltiazem gtt Will start oral diltiazem 60 mg QID per cards Continue with her metoprolol 25 mg BNP elevated but likely from demand TSH normal Recent echo from December 2023 reviewed shows normal LV function with EF estimated at 50-55%. Moderate to severe mitral valve regurgitation. Moderate tricuspid regurgitation. Xarelto currently on hold in case she needs surgical intervention for abdominal wound Lovenox DVT prophylaxis card consulted- Rate controlled. Continue diltiazem 60mg q6h. Can switch this to her long-acting Diltiazem upon discharge. Continue metoprolol. Oral anticoagulation with rivaroxaban 20 mg daily. 04/16- stable- continue cardizem 04/17- stable-continue (3) Elevated brain natriuretic peptide (BNP) level: Code(s): R79.89 - Other specified abnormal findings of blood chemistry Status: Acute (4) UTI (urinary tract infection): Code(s): N39.0 - Urinary tract infection, site not specified Status: Acute Assessment and Plan: UA concerning for infection Blood and urine culture pending Procalcitonin negative initially was started on Rocephin for azithromycin for HAP Switched to Cefepime and Vancomycin for abdominal coverage of possible necrotizing fasciitis None the less antibiotics will cover for urinary bug Lynch in place--urine is clear 04/16-continue antibiotics for UTI 04/17- improving-continue - remove Lynch (5) Wounds, multiple: Code(s): T07.XXXA - Unspecified multiple injuries, initial encounter Status: Chronic Assessment and Plan: Photos were taken BLE wounds in various stages of healing--clean with soap and water, apply thin layer of silver gel to open areas with yellow slough, cover with Vaseline or Adaptic gauze, ABD pad and then wrap with Kerlix. Change dressing b.i.d. or as needed Wounds to bilateral arms covered with Mepilex Abdominal wound with c/o necrotic tissue, yellow and pale pink wound bed with foul smell. CT was ordered to assess for possible necrotizing fasciitis. Unable to do CT due to body habitus. US completed CRP elevated-but trending down now Wound consulted and rec's appreciated (6) Fall: Code(s): W19.XXXA - Unspecified fall, initial encounter Status: Acute Assessment and Plan: Mechanical fall at home Ethanol less than 10 PT OT SNF placement Plan Feeding: Heart healthy diet Analgesia: Tylenol Thromboembolic prophylaxis: Lovenox Lines: PIV Antibiotics: Cefepime, vancomycin Disposition: Likely SNF Time Spent With Patient Time with patient: 25 - 35 minutes Subjective Date/time seen: 04/17/24 08:02 Interval history: This is a 63-year-old female with a past medical history of cervical cancer status post hysterectomy, super morbid obesity, chronic lymphedema and longstanding paroxysmal atrial fibrillation (not on anticoagulation) and family history of kidney stones who presented to the ER via EMS after being found down at home by her brother. The patient provides the following information but she is somewhat a difficult historian so some of the information is supplemen
[2024-04-17] MEDS: AMOXICILLIN/CLAVULANATE K 875-125 MG TAB 1 TABLET PO ×2 (08:55→21:06)
[2024-04-17] MEDS: AZITHROMYCIN 250 MG TABLET 500 MG PO (08:55)
[2024-04-17] MEDS: METOPROLOL TARTRATE 25 MG TABLET PO ×2 (08:55→21:07)
[2024-04-17] MEDS: POTASSIUM CHLORIDE 20 MEQ PACKET (FOR LIQUID) 40 MEQ PO (08:56)
[2024-04-17] MEDS: TOLNAFTATE 1% POWDER 45 GM BTL 1 APPLIC TOPICAL ×2 (08:57→21:07)
--- NOTE | 2024-04-17 11:05 | PM.PNCARD ---
Progress Note: A&P Assessment and Plan (1) Atrial fibrillation with RVR: Code(s): I48.91 - Unspecified atrial fibrillation Status: Acute Plan will discontinue diltiazem and transition to diltiazem CD 2 140 mg daily which was her maintenance dosage. Patient has no other active cardiovascular problems at this time. She states plans are to discharge her to a rehab facility which certainly sounds appropriate with her propensity to fall and significant injury risk while she is anticoagulated with morbid obese Nik Pfeiffer MD [facility] Subjective Date/time seen: Date of service:04/17/24 11:05 Interval history: Follow-up visit in this 63-year-old woman with: Chronic atrial fibrillation managed with rate control and anticoagulation. Compliance with medication is certainly questionable. While on diltiazem heart rate control is excellent. She has no cardiovascular complaints today. Discussed transitioning her back to long-acting diltiazem Exam Const: General: comfortable and no acute distress Other: Able to lie flat, morbidly obese HENMT: Face/Nose/Sinus: Normal nares present and no epistaxis Mouth: Yes moist mucous membranes Other: Bruising seen on her neck Eyes: General: appearance normal, both eyes and all related structures Sclera: sclerae normal Pupils: Equal, round and reactive pupils present Neck: Neck: supple and no JVD Carotids: no bruits Resp: Effort & Inspection: normal respiratory effort Auscultation: clear to auscultation bilaterally and lung sounds not diminished Other: No chest wall tenderness Cardio: Rate: regular rate Rhythm: abnormal rhythm irregularly irregular Heart sounds: no gallops, no murmurs and no rubs GI: Auscultation: normal bowel sounds Skin: General skin exam: normal color, rashes and/or lesions noted and no erythema Other: Warm Neuro: Cranial nerves: Yes Equal, round and reactive pupils present Speech: normal speech Other: No obvious focal deficit or facial asymmetry Extrem: General: no edema Other: Normal capillary refills Intact distal pulses. Psych: Mental Status: mental status grossly normal Affect: normal affect Objective Data Vital Signs Vital Signs: Vital Signs - 24 hr 04/16/24 12:00 04/16/24 14:00 04/16/24 15:49 Temperature 36.1 C L Pulse Rate 82 76 Respiratory Rate 21 H Blood Pressure 99/69 L 108/90 Pulse Oximetry 100 04/16/24 16:00 04/16/24 20:23 04/16/24 21:15 Temperature 36.8 C Pulse Rate 80 80 77 Respiratory Rate 20 Blood Pressure 106/79 Pulse Oximetry 98 04/17/24 00:00 04/17/24 04:00 04/17/24 06:22 Temperature 36.1 C L Pulse Rate 78 62 73 Respiratory Rate 22 H Blood Pressure 102/68 Pulse Oximetry 100 04/17/24 08:55 04/17/24 08:00 Temperature Pulse Rate 73 67 Respiratory Rate Blood Pressure Pulse Oximetry Intake/Output Intake/Output: Intake & Output 04/14/24 04/15/24 04/16/24 04/17/24 23:59 23:59 23:59 23:59 Intake Total 3775 2833.3 3236 180 Output Total 125 1400 1150 300 Balance 3650 1433.3 2086 -120 Meds/Results Medications: Active Medications Generic Name Dose Route Start Last Admin Trade Name Freq PRN Reason Stop Dose Admin Acetaminophen 650 mg 04/12/24 14:11 Acetaminophen 325 Mg Tablet PO Q4H PRN Headache Albuterol 2.5 mg 04/12/24 14:15 Albuterol Sulfate Neb 2.5 Mg/3 Ml Inh INHALATION Q4HRT PRN Shortness Of Breath Amoxicillin/Clavulanate Potassium 1 tablet 04/16/24 21:00 04/17/24 08:55 Amoxicillin/Clavulanate K 875-125 Mg Tab PO 04/21/24 09:01 1 tablet Q12HR YONI Administration Azithromycin 500 mg 04/14/24 10:55 04/17/24 08:55 Azithromycin 250 Mg Tablet PO 04/18/24 21:00 500 mg DAILY YONI Administration Diltiazem HCl 240 mg 04/18/24 09:00 Diltiazem Hcl Cd 240 Mg Cap.24hr PO QAM YONI Guaifenesin 1,200 mg 04/12/24 14:30 04/16/24 20:
--- NOTE | 2024-04-17 12:20 | PCPTNOTE ---
Attempted to see patient for Physical Therapy, however patient was not able to be seen due to her eating lunch.
[2024-04-17] MEDS: guaiFENesin 12 HR 600 MG TABCR 1200 MG PO ×2 (15:26→21:07)
[2024-04-17] MEDS: RIVAROXABAN 20 MG TABLET PO (17:16)
[2024-04-17] MEDS: ACETAMINOPHEN 325 MG TABLET 650 MG PO (21:07)
[2024-04-18] VITALS (9 sets, daily range): BP systolic 98–101; BP diastolic 58–75; PULSE 72–86; RESP 16–20; TEMP 36.7–37.2; O2SAT 97–99
[2024-04-18] MEDS: CENTRAL LINE FLUSH 10 ML IV PUSH ×2 (06:13→13:28)
[2024-04-18 06:41] LABS: Basophils Absolute Auto 0.1 K/mm3 (0.0-0.1); Basophils Percent Auto 1.2 % (0.2-1.2); Eosinophils Absolute Auto 0.5 K/mm3 (0-0.3); Eosinophils Percent Auto 5.9 % (0-4.4); Hematocrit 37.5 % (37.0-47.0); Hemoglobin 11.5 g/dL (12.0-15.0); Immature Granulocyte Percent A 1.3 % (0-0.5); Lymphocytes Absolute Auto 1.31 K/mm3 (0.9-3.2); Lymphocytes Percent Auto 16.8 % (18.3-44.2); Mean Corpuscular HGB Conc 30.7 g/dl (32-36); Mean Corpuscular Hemoglobin 30.5 pg (26-34); Mean Corpuscular Volume 99.5 fl (80-100); Mean Platelet Volume 10.2 fl (7.4-10.4); Monocytes Absolute Auto 0.9 K/mm3 (0.1-0.6); Monocytes Percent Auto 11.2 % (2.6-8.5); Neutrophils Percent Auto 63.6 % (45.5-73.1); Platelet Count Result 199 k/mm3 (150-375); Red Blood Count 3.77 M/mm3 (4.2-5.4); White Blood Count 7.8 K/mm3 (4.5-10.0)
[2024-04-18 06:56] LABS: Alanine Aminotransferase 31 U/L (6-35); Albumin Level 2.8 g/dL (3.5-5.1); Alkaline Phosphatase 121 U/L (38-126); Anion Gap 3 mmol/L (4-12); Aspartate Amino Transferase 46 U/L (14-36); Bilirubin,Total 1.6 mg/dL (0.2-1.3); Blood Urea Nitrogen 31 mg/dL (7-17); Calcium 8.3 mg/dL (8.4-10.2); Carbon Dioxide 23 mmol/L (22-30); Chloride 109 mmol/L (98-107); Estimated CRCL calculation 85 ml/min; Estimated Glomerular Filt Rate > 60; Glucose 81 mg/dL (65-110); Potassium 4.3 mmol/L (3.4-5.0); Sodium 135 mmol/L (137-145)
[2024-04-18] MEDS: METOPROLOL TARTRATE 25 MG TABLET PO ×2 (08:31→20:22)
[2024-04-18] MEDS: AZITHROMYCIN 250 MG TABLET 500 MG PO (08:31)
[2024-04-18] MEDS: ACETAMINOPHEN 325 MG TABLET 650 MG PO (08:31)
[2024-04-18] MEDS: AMOXICILLIN/CLAVULANATE K 875-125 MG TAB 1 TABLET PO ×2 (08:31→20:22)
[2024-04-18] MEDS: guaiFENesin 12 HR 600 MG TABCR 1200 MG PO ×2 (08:31→20:21)
[2024-04-18] MEDS: dilTIAZem HCL CD 240 MG CAP.24HR PO (08:31)
[2024-04-18] MEDS: POTASSIUM CHLORIDE 20 MEQ PACKET (FOR LIQUID) 40 MEQ PO (08:32)
[2024-04-18] MEDS: TOLNAFTATE 1% POWDER 45 GM BTL 1 APPLIC TOPICAL ×2 (08:32→20:22)
--- NOTE | 2024-04-18 08:33 | P.PNIM_ITS ---
Progress Note: A&P Assessment and Plan (1) CAP (community acquired pneumonia): Code(s): J18.9 - Pneumonia, unspecified organism Status: Acute Assessment and Plan: * Initially was started on Rocephin azithromycin however antibiotics were escalated to cefepime and vanc given both recent hospitalization and concerns for possible abdominal infection * Incentive spirometry, pep * Guaifenesin b.i.d. * Region antigen, mycoplasma IgM, pneumococcal antigen pending * Albuterol nebulizer p.r.n. q.4 04/16-complete zithromax-last dose on - continue IS, ambulation 04/18- IS, up to the chair TID (2) Atrial fibrillation with RVR: Code(s): I48.91 - Unspecified atrial fibrillation Status: Acute Assessment and Plan: Atrial fibrillation with RVR on admission with a rate in the 130s * typically on diltiazem 240 mg daily * started on diltiazem gtt * Will start oral diltiazem 60 mg QID per cards * Continue with her metoprolol 25 mg * BNP elevated but likely from demand * TSH normal * Recent echo from December 2023 reviewed shows normal LV function with EF estimated at 50-55%. Moderate to severe mitral valve regurgitation. Moderate tricuspid regurgitation. * Xarelto currently on hold in case she needs surgical intervention for abdominal wound * Lovenox DVT prophylaxis * * card consulted- Rate controlled. Continue diltiazem 60mg q6h. Can switch this to her long-acting Diltiazem upon discharge. Continue metoprolol. Oral anticoagulation with rivaroxaban 20 mg daily. 04/16- stable- continue cardizem 04/17- stable-continue (3) Elevated brain natriuretic peptide (BNP) level: Code(s): R79.89 - Other specified abnormal findings of blood chemistry Status: Acute (4) UTI (urinary tract infection): Code(s): N39.0 - Urinary tract infection, site not specified Status: Acute Assessment and Plan: UA concerning for infection * Blood and urine culture pending * Procalcitonin negative * initially was started on Rocephin for azithromycin for HAP * Switched to Cefepime and Vancomycin for abdominal coverage of possible necrotizing fasciitis * None the less antibiotics will cover for urinary bug * Mathis in place--urine is clear * 04/16-continue antibiotics for UTI * 04/17- improving-continue - remove Mathis * 04/18- pt refused mathis removal yesterday- will discuss again today. aware of risks of leaving mathis in like cauti, retentions, etc (5) Wounds, multiple: Code(s): T07.XXXA - Unspecified multiple injuries, initial encounter Status: Chronic Assessment and Plan: * Photos were taken * BLE wounds in various stages of healing--clean with soap and water, apply thin layer of silver gel to open areas with yellow slough, cover with Vaseline or Adaptic gauze, ABD pad and then wrap with Kerlix. Change dressing b.i.d. or as needed * Wounds to bilateral arms covered with Mepilex * Abdominal wound with c/o necrotic tissue, yellow and pale pink wound bed with foul smell. * CT was ordered to assess for possible necrotizing fasciitis. Unable to do CT due to body habitus. * US completed * CRP elevated-but trending down now * Wound consulted and rec's appreciated * - continue wound care : clear antifungal barrier cream- ok to leave open to air (6) Fall: Code(s): W19.XXXA - Unspecified fall, initial encounter Status: Acute Assessment and Plan: Mechanical fall at home * Ethanol less than 10 * PT OT * SNF placement Plan Feeding: Heart healthy diet Analgesia: Tylenol Thromb
--- NOTE | 2024-04-18 08:33 | PM.IMPN ---
Progress Note: A&P Assessment and Plan (1) CAP (community acquired pneumonia): Code(s): J18.9 - Pneumonia, unspecified organism Status: Acute Assessment and Plan: Initially was started on Rocephin azithromycin however antibiotics were escalated to cefepime and vanc given both recent hospitalization and concerns for possible abdominal infection Incentive spirometry, pep Guaifenesin b.i.d. Region antigen, mycoplasma IgM, pneumococcal antigen pending Albuterol nebulizer p.r.n. q.4 04/16-complete zithromax-last dose on - continue IS, ambulation 04/18- IS, up to the chair TID (2) Atrial fibrillation with RVR: Code(s): I48.91 - Unspecified atrial fibrillation Status: Acute Assessment and Plan: Atrial fibrillation with RVR on admission with a rate in the 130s typically on diltiazem 240 mg daily started on diltiazem gtt Will start oral diltiazem 60 mg QID per cards Continue with her metoprolol 25 mg BNP elevated but likely from demand TSH normal Recent echo from December 2023 reviewed shows normal LV function with EF estimated at 50-55%. Moderate to severe mitral valve regurgitation. Moderate tricuspid regurgitation. Xarelto currently on hold in case she needs surgical intervention for abdominal wound Lovenox DVT prophylaxis card consulted- Rate controlled. Continue diltiazem 60mg q6h. Can switch this to her long-acting Diltiazem upon discharge. Continue metoprolol. Oral anticoagulation with rivaroxaban 20 mg daily. 04/16- stable- continue cardizem 04/17- stable-continue (3) Elevated brain natriuretic peptide (BNP) level: Code(s): R79.89 - Other specified abnormal findings of blood chemistry Status: Acute (4) UTI (urinary tract infection): Code(s): N39.0 - Urinary tract infection, site not specified Status: Acute Assessment and Plan: UA concerning for infection Blood and urine culture pending Procalcitonin negative initially was started on Rocephin for azithromycin for HAP Switched to Cefepime and Vancomycin for abdominal coverage of possible necrotizing fasciitis None the less antibiotics will cover for urinary bug Mathis in place--urine is clear 04/16-continue antibiotics for UTI 04/17- improving-continue - remove Mathis 04/18- pt refused mathis removal yesterday- will discuss again today. aware of risks of leaving mathis in like cauti, retentions, etc (5) Wounds, multiple: Code(s): T07.XXXA - Unspecified multiple injuries, initial encounter Status: Chronic Assessment and Plan: Photos were taken BLE wounds in various stages of healing--clean with soap and water, apply thin layer of silver gel to open areas with yellow slough, cover with Vaseline or Adaptic gauze, ABD pad and then wrap with Kerlix. Change dressing b.i.d. or as needed Wounds to bilateral arms covered with Mepilex Abdominal wound with c/o necrotic tissue, yellow and pale pink wound bed with foul smell. CT was ordered to assess for possible necrotizing fasciitis. Unable to do CT due to body habitus. US completed CRP elevated-but trending down now Wound consulted and rec's appreciated - continue wound care : clear antifungal barrier cream- ok to leave open to air (6) Fall: Code(s): W19.XXXA - Unspecified fall, initial encounter Status: Acute Assessment and Plan: Mechanical fall at home Ethanol less than 10 PT OT SNF placement Plan Feeding: Heart healthy diet Analgesia: Tylenol Thromboembolic prophylaxis: Lovenox Lines: PIV Antibiotics: Cefepime, vancomycin Disposition: Likely SNF Time Spent With Patient Time with patient: 15 - 25 minutes Subjective Date/time seen: 04/18/24 08:33 Interval history: This is a 63-year-old female with a past medical history of cervical cancer status post hysterectomy, super morbid obesity, chronic lymphedema and longstanding paroxysmal atrial fibrillation (not on anticoagulation
--- NOTE | 2024-04-18 13:56 | P.DS_ITS ---
DS: Admitting Diagnosis Discharge Date 04/18/24 Admitting Diagnosis fall, uti, pneumonia DS: Discharge Diagnosis Discharge Diagnosis (1) CAP (community acquired pneumonia): Code(s): J18.9 - Pneumonia, unspecified organism Status: Acute Assessment and Plan: * Initially was started on Rocephin azithromycin however antibiotics were escalated to cefepime and vanc given both recent hospitalization and concerns for possible abdominal infection * Incentive spirometry, pep * Guaifenesin b.i.d. * Region antigen, mycoplasma IgM, pneumococcal antigen pending * Albuterol nebulizer p.r.n. q.4 04/16-complete zithromax-last dose on - continue IS, ambulation 04/18- IS, up to the chair TID (2) Atrial fibrillation with RVR: Code(s): I48.91 - Unspecified atrial fibrillation Status: Acute Assessment and Plan: Atrial fibrillation with RVR on admission with a rate in the 130s * typically on diltiazem 240 mg daily * started on diltiazem gtt * Will start oral diltiazem 60 mg QID per cards * Continue with her metoprolol 25 mg * BNP elevated but likely from demand * TSH normal * Recent echo from December 2023 reviewed shows normal LV function with EF estimated at 50-55%. Moderate to severe mitral valve regurgitation. Moderate tricuspid regurgitation. * Xarelto currently on hold in case she needs surgical intervention for a bdominal wound * Lovenox DVT prophylaxis * * card consulted- Rate controlled. Continue diltiazem 60mg q6h. Can switch this to her long-acting Diltiazem upon discharge. Continue metoprolol. Oral antico agulation with rivaroxaban 20 mg daily. 04/16- stable- continue cardizem 04/17- stable-continue (3) Elevated brain natriuretic peptide (BNP) level: Code(s): R79.89 - Other specified abnormal findings of blood chemistry Status: Acute (4) UTI (urinary tract infection): Code(s): N39.0 - Urinary tract infection, site not specified Status: Acute Assessment and Plan: UA concerning for infection * Blood and urine culture pending * Procalcitonin negative * initially was started on Rocephin for azithromycin for HAP * Switched to Cefepime and Vancomycin for abdominal coverage of possible necrotizing fasciitis * None the less antibiotics will cover for urinary bug * Mathis in place--urine is clear * 04/16-continue antibiotics for UTI * 04/17- improving-continue - remove Mathis * 04/18- pt refused mathis removal yesterday- will discuss again today. aware of risks of leaving mathis in like cauti, retentions, etc (5) Wounds, multiple: Code(s): T07.XXXA - Unspecified multiple injuries, initial encounter Status: Chronic Assessment and Plan: * Photos were taken * BLE wounds in various stages of healing--clean with soap and water, apply thin layer of silver gel to open areas with yellow slough, cover with Vaseline or Adaptic gauze, ABD pad and then wrap with Kerlix. Change dressing b.i.d. or as needed * Wounds to bilateral arms covered with Mepilex * Abdominal wound with c/o necrotic tissue, yellow and pale pink wound bed with foul smell. * CT was ordered to assess for possible necrotizing fasciitis. Unable to do CT due to body habitus. * US completed * CRP elevated-but trending down now * Wound consulted and rec's appreciated * - continue wound care : clear antifungal barrier cream- ok to leave open to air (6) Fall: Code(s): W19.XXXA - Unspecified fall, initial encounter Status: Acute Assessment and Plan: Mechanical fall at home * Ethanol less than
--- NOTE | 2024-04-18 13:56 | PM.DS ---
DS: Admitting Diagnosis Discharge Date 04/18/24 Admitting Diagnosis fall, uti, pneumonia DS: Discharge Diagnosis Discharge Diagnosis (1) CAP (community acquired pneumonia): Code(s): J18.9 - Pneumonia, unspecified organism Status: Acute Assessment and Plan: Initially was started on Rocephin azithromycin however antibiotics were escalated to cefepime and vanc given both recent hospitalization and concerns for possible abdominal infection Incentive spirometry, pep Guaifenesin b.i.d. Region antigen, mycoplasma IgM, pneumococcal antigen pending Albuterol nebulizer p.r.n. q.4 04/16-complete zithromax-last dose on - continue IS, ambulation 04/18- IS, up to the chair TID (2) Atrial fibrillation with RVR: Code(s): I48.91 - Unspecified atrial fibrillation Status: Acute Assessment and Plan: Atrial fibrillation with RVR on admission with a rate in the 130s typically on diltiazem 240 mg daily started on diltiazem gtt Will start oral diltiazem 60 mg QID per cards Continue with her metoprolol 25 mg BNP elevated but likely from demand TSH normal Recent echo from December 2023 reviewed shows normal LV function with EF estimated at 50-55%. Moderate to severe mitral valve regurgitation. Moderate tricuspid regurgitation. Xarelto currently on hold in case she needs surgical intervention for abdominal wound Lovenox DVT prophylaxis card consulted- Rate controlled. Continue diltiazem 60mg q6h. Can switch this to her long-acting Diltiazem upon discharge. Continue metoprolol. Oral anticoagulation with rivaroxaban 20 mg daily. 04/16- stable- continue cardizem 04/17- stable-continue (3) Elevated brain natriuretic peptide (BNP) level: Code(s): R79.89 - Other specified abnormal findings of blood chemistry Status: Acute (4) UTI (urinary tract infection): Code(s): N39.0 - Urinary tract infection, site not specified Status: Acute Assessment and Plan: UA concerning for infection Blood and urine culture pending Procalcitonin negative initially was started on Rocephin for azithromycin for HAP Switched to Cefepime and Vancomycin for abdominal coverage of possible necrotizing fasciitis None the less antibiotics will cover for urinary bug Mathis in place--urine is clear 04/16-continue antibiotics for UTI 04/17- improving-continue - remove Mathis 04/18- pt refused mathis removal yesterday- will discuss again today. aware of risks of leaving mathis in like cauti, retentions, etc (5) Wounds, multiple: Code(s): T07.XXXA - Unspecified multiple injuries, initial encounter Status: Chronic Assessment and Plan: Photos were taken BLE wounds in various stages of healing--clean with soap and water, apply thin layer of silver gel to open areas with yellow slough, cover with Vaseline or Adaptic gauze, ABD pad and then wrap with Kerlix. Change dressing b.i.d. or as needed Wounds to bilateral arms covered with Mepilex Abdominal wound with c/o necrotic tissue, yellow and pale pink wound bed with foul smell. CT was ordered to assess for possible necrotizing fasciitis. Unable to do CT due to body habitus. US completed CRP elevated-but trending down now Wound consulted and rec's appreciated - continue wound care : clear antifungal barrier cream- ok to leave open to air (6) Fall: Code(s): W19.XXXA - Unspecified fall, initial encounter Status: Acute Assessment and Plan: Mechanical fall at home Ethanol less than 10 PT OT SNF placement Plan Feeding: Heart healthy diet Analgesia: Tylenol Thromboembolic prophylaxis: Lovenox Lines: PIV Antibiotics: Cefepime, vancomycin Disposition: Likely SNF DS: Summary Hospital Course Hospital Course: Interval history: This is a 63-year-old female with a past medical history of cervical cancer status post hysterectomy, super morbid obesity, chronic lymphedema and longstanding paroxysmal atri
[2024-04-18] MEDS: SODIUM CHLORIDE 0.9% IV 250 ML 999 ML IV CONT (15:23)
[2024-04-18] MEDS: RIVAROXABAN 20 MG TABLET PO (16:38)
[2024-04-19 22:43] LABS: Mycoplasma IgM Antibody Titer 115 U/mL
[2024-04-28 15:49] LABS: Parathyroid Hormone Related Pr 7 pg/mL (11-20)
[2024-04-30 02:03] LABS: Legionella pneumophila Ag Ur NOT DETECTED
== END 2024-04-18 23:15 | DRG 193 ==
LOC: ANHED 15:46 → ANHIMU 20:45 → ANH3MEDSUR 04-18 14:04 → ANHIMU 04-20 14:07
PROVIDERS: Internal Medicine; Nurse Practitioner Acute Care; Admitting Provider Internal Medicine; Emergency Provider Physician Assistant; PCP Family Medicine; Visit Provider Nurse Practitioner
DX: J18.9 Pneumonia, unspecified organism (principal); M72.6 Necrotizing fasciitis; E87.0 Hyperosmolality and hypernatremia; Z68.44 Body mass index [BMI] 60.0-69.9, adult; J98.11 Atelectasis; I48.19 Other persistent atrial fibrillation; N39.0 Urinary tract infection, site not specified; B96.20 Unspecified Escherichia coli [E. coli] as the cause of diseases classified elsewhere; E86.0 Dehydration; W01.0XXA Fall on same level from slipping, tripping and stumbling without subsequent striking against object, initial encounter; E66.01 Morbid (severe) obesity due to excess calories; R91.8 Other nonspecific abnormal finding of lung field; I89.0 Lymphedema, not elsewhere classified; Z85.41 Personal history of malignant neoplasm of cervix uteri; Z90.710 Acquired absence of both cervix and uterus; Z90.722 Acquired absence of ovaries, bilateral
CPT/HCPCS: 36415; 36569; 70450; 71045; 76705; 76775; 80048; 80053; 80202; 80307; 81001; 82306; 82550; 83036; 83519; 83605; 83690; 83735; 83880; 84100; 84145; 84295; 84443; 85025; 85610; 85730; 86140; 86738; 87040; 87077; 87086; 87088; 87181; 87186; 87449; 87641; 87899; 93005; 93970; 96361; 96365; 96366; 96367; 96372; 96375; 96376; 97161; 97165; 97530; 97535; 99285; A9270; G0378; J0456; J0692; J0696; J1650; J3370; J3480; J7030; J7040; J7070; J7120

== ENCOUNTER 2024-06-26 07:14 | Outpatient (RCR) | payer MEDICARE, SELFPAY ==
[2024-06-19 12:43] VITALS: BMI 69.0
--- NOTE | 2024-06-30 12:55 | PCWOUND ---
WOCN NOTE Patient called to cancel for today and Saturday. States she twisted her back and can not get around. I instructed her to remove her compression wraps from both legs and start doing daily dressing changes daily she she had done previously. She stated she has removed the left leg but not the right one. Reinforced to remove both and start previous daily changes, patient expressed understanding. Patient states she will call back to reschedule when she is ready for another appointment.
== END 2024-08-10 14:45 | disposition home or self-care (01) ==
LOC: ANHWOC 07:14
PROVIDERS: PCP Family Medicine; Visit Provider Family Medicine
DX: I83.10 Varicose veins of unspecified lower extremity with inflammation (principal); I10 Essential (primary) hypertension; E66.9 Obesity, unspecified; R20.8 Other disturbances of skin sensation
CPT/HCPCS: 29581; A9270

== ENCOUNTER 2024-07-09 20:23 | Inpatient (IN) | payer MEDICARE, SELFPAY ==
[2024-07-09] VITALS (26 sets, daily range): BP systolic 63–107; BP diastolic 42–95; PULSE 107–182; RESP 17–28; TEMP 36.4; O2SAT 92–100
--- NOTE | ~2024-07-09 | US_ITS ---
EXAMINATION: US renal BI DATE: 07/10/2024 14:15 INDICATION: Acute kidney injury. TECHNIQUE: Multiple ultrasound grayscale images of the kidneys were obtained. COMPARISON: Ultrasound 04/13/2024 FINDINGS: The right kidney measures 11.0 x 5.9 x 4.8 cm. The left kidney measures 11.6 x 5.9 x 4.8 cm. The kidn eys demonstrate normal parenchymal echogenicity. There is no hydronephrosis. The bladder is decompres sed by a Lynch catheter. IMPRESSION: 1. Normal kidneys. No hydronephrosis. Reviewed, dictated and finalized at location A.
--- NOTE | ~2024-07-09 | US_ITS ---
EXAMINATION: US right upper quadrant DATE: 07/12/2024 10:32 INDICATION: Hyperbilirubinemia TECHNIQUE: Multiple grayscale and Doppler ultrasound images of the abdomen were obtained. COMPARISON: None FINDINGS: The pancreatic head and body are normal in appearance. The pancreatic tail is not visualized. Liver has normal echogenicity and contour, with a smooth surface. No liver lesion identified. No intrahepat ic biliary duct dilation suspected. Portal venous flow was seen in the hepatopetal, normal direction with increased venous pulsatility. The gallbladder is normal in appearance. There is no cholelithias is. The common bile duct measures 3-4 mm, which is normal. Sonographic Ames sign was reported as ne gative by the management rep. IMPRESSION: 1. Increased portal venous pulsatility which can be seen with tricuspid regurgitation, right heart fa ilure or other causes of elevated right heart pressures. Reviewed, dictated and finalized at location A. IMPRESSION: 1. Increased portal venous pulsatility which can be seen with tricuspid regurgi tation, right heart failure or other causes of elevated right heart pressures.
--- NOTE | ~2024-07-09 | XR_ITS ---
XR tibia fibula RT 2V Ordering provider: Beto Moreau History: . wounds TO ENTIRE B/L LOWER LEG . Comparison: None. FINDINGS: BONES: No acute fracture or dislocation. JOINT SPACES: Normal. SOFT TISSUES: Normal. IMPRESSION: No acute osseous abnormality right leg. Reviewed, dictated and finalized at location A.
--- NOTE | ~2024-07-09 | XR_ITS ---
XR chest 1V portable Ordering provider: Beto Moreau MD History: 63 years Female with . chest palpitations . Comparison: April 14, 2024 FINDINGS: MEDIASTINUM: The cardiac silhouette is grossly enlarged. Congestive delfino. LUNGS: No infiltrates, effusions or pneumothorax. Prominent markings in the lower lobes. OTHER: No free air under the diaphragm. Dextroscoliosis. IMPRESSION: Cardiomegaly. Prominent markings in the left lower lobe.Atelectasis versus early pneumonia is not excluded. Reviewed, dictated and finalized at location A.
--- NOTE | ~2024-07-09 | US_ITS ---
EXAMINATION: US venous doppler [facility] DATE: 07/12/2024 10:33 INDICATION: Lower limb swelling TECHNIQUE: Grayscale ultrasound images without and with compression and Doppler ultrasound images of the bilateral lower extremity veins were obtained. COMPARISON: None. FINDINGS: Vascular flow seen on color Doppler in the right common femoral vein, profunda (deep) femoral vein, f emoral vein, popliteal vein, posterior tibial veins, peroneal vein and greater saphenous vein outflow . The vessels are however unable to be clearly visualized on the grayscale imaging due to patient bod y habitus which is limits assessment for nonocclusive thrombus. Vascular flow is also seen on color Doppler in the left common femoral vein, profunda femoral vein, f emoral vein, popliteal vein, posterior tibial veins, peroneal vein and greater saphenous vein, again with none. IMPRESSION: 1. Vascular flow is identified in the deep veins of both lower limbs with no completely thrombosed v essels identified. The vessel are however unable to be clearly visualized on grayscale imaging preclu ding assessment for compressibility and non occlusive thrombus. Reviewed, dictated and finalized at location A. IMPRESSION: 1. Vascular flow is identified in the deep veins of both lower limbs with no c ompletely thrombosed vessels identified. The vessel are however unable to be cl early visualized on grayscale imaging precluding assessment for compressibility and non occlusive thrombus.
--- NOTE | ~2024-07-09 | XR_ITS ---
EXAMINATION: XR chest PICC line DATE: 07/10/2024 10:30 INDICATION: PICC line placement TECHNIQUE: frontal view of the chest was obtained. COMPARISON: Chest radiograph dated 07/09/2024 FINDINGS: Right upper extremity peripherally inserted central venous catheter (PICC) tip at the base of the ri ght neck along side the right-sided the trachea likely within either the right internal jugular vein or a smaller branch vein. Lungs are clear with no focal airspace opacities, pulmonary edema, pleural effusion or pneumothorax. Cardiomegaly. IMPRESSION: 1. Right upper extremity PICC line tip at the right base of the neck likely within either the right i nternal jugular vein or a smaller branch vein. Consider repositioning. 2. No acute cardiopulmonary disease. Reviewed, dictated and finalized at location B. IMPRESSION: 1. Right upper extremity PICC line tip at the right base of the neck likely wit hin either the right internal jugular vein or a smaller branch vein. Consider r epositioning. 2. No acute cardiopulmonary disease.
--- NOTE | ~2024-07-09 | XR_ITS ---
XR tibia fibula LT 2V Ordering provider: Beto Moreau MD History: . wounds . Comparison: None. FINDINGS: BONES: No acute fracture or dislocation. Calcaneal spur. JOINT SPACES: Normal. SOFT TISSUES: Normal. IMPRESSION: No acute osseous abnormality left leg. Reviewed, dictated and finalized at location A.
--- NOTE | 2024-07-09 20:30 | ECG_ITS ---
Test Date: 2024-07-09 20:31:43 Measurements Intervals [place] Rate: 185 P: 0 SC: 0 QRS: 72 QRSD: 90 T: -4 QT: 224 QTc: 394 Interpretive Statements ATRIAL FIBRILLATION WITH RAPID VENTRICULAR RESPONSE LOW QRS VOLTAGE IN PRECORDIAL LEADS ANTEROSEPTAL INFARCT, AGE INDETERMINATE BORDERLINE ST-T WAVE ABNORMALITY- DIFFUSE LEADS BASELINE WANDER- II, III, AVF ABNORMAL ECG Compared to ECG 04/11/2024 16:03:33 HEART RATE HAS INCREASED Electronically Signed On 07-10-2024 06:40:43 CDT by Vernon Mcgowan D.O.
[2024-07-09] MEDS: ASPIRIN 81 MG CHEWABLE TABLET 324 MG PO ×2 (20:56→23:42)
[2024-07-09] MEDS: dilTIAZem HCl INJ 25 MG/5 ML VIAL 20 MG IV PUSH (20:59)
[2024-07-09] MEDS: SODIUM CHLORIDE 0.9% IV 1,000 ML 999 ML IV CONT ×3 (21:12→23:59)
[2024-07-09] MEDS: dilTIAZem 100 MG/100 ML 100 MG/100 ML BAG IV CONT (21:13)
[2024-07-09 22:50] LABS: Basophils Absolute Auto 0.1 K/mm3 (0.0-0.1); Basophils Percent Auto 0.5 % (0.2-1.2); Eosinophils Absolute Auto 0.1 K/mm3 (0-0.3); Eosinophils Percent Auto 0.6 % (0-4.4); Hematocrit 34.1 % (37.0-47.0); Hemoglobin 11.2 g/dL (12.0-15.0); Immature Granulocyte Absolute 0.09 K/mm3 (0.00-0.031); Immature Granulocyte Percent A 0.6 % (0-0.5); Lymphocytes Absolute Auto 0.24 K/mm3 (0.9-3.2); Lymphocytes Percent Auto 1.7 % (18.3-44.2); Mean Corpuscular HGB Conc 32.8 g/dl (32-36); Mean Corpuscular Hemoglobin 30.9 pg (26-34); Mean Corpuscular Volume 93.9 fl (80-100); Mean Platelet Volume 9.3 fl (7.4-10.4); Monocytes Absolute Auto 0.4 K/mm3 (0.1-0.6); Monocytes Percent Auto 2.7 % (2.6-8.5); Neutrophils Absolute Auto 13.1 K/mm3 (1.3-6.7); Neutrophils Percent Auto 93.9 % (45.5-73.1); Platelet Count Result 284 k/mm3 (150-375); Red Blood Count 3.63 M/mm3 (4.2-5.4); Red Cell Distribution Width 15.8 % (11.5-14.5)
[2024-07-09 23:00] LABS: Alanine Aminotransferase 20 U/L (6-35); Albumin Level 3.1 g/dL (3.5-5.1); Alkaline Phosphatase 126 U/L (38-126); Anion Gap 12 mmol/L (4-12); Aspartate Amino Transferase 42 U/L (14-36); Bilirubin,Total 4.4 mg/dL (0.2-1.3); Blood Urea Nitrogen 48 mg/dL (7-17); Calcium 8.1 mg/dL (8.4-10.2); Carbon Dioxide 18 mmol/L (22-30); Chloride 98 mmol/L (98-107); Estimated Glomerular Filt Rate 35; Glucose 74 mg/dL (65-110); Lipase 56 U/L (23-300); Potassium 4.9 mmol/L (3.4-5.0); Sodium 128 mmol/L (137-145)
[2024-07-09 23:04] LABS: INR 1.8; Prothrombin Time 21.5 Seconds (11.1-14.7)
[2024-07-09 23:05] LABS: Partial Thromboplastin Time 33.1 Seconds (22.3-36.8)
[2024-07-09 23:13] LABS: Troponin I 0.071 ng/mL (0.000-0.034)
--- NOTE | 2024-07-09 23:14 | ED.GENADULT ---
HPI - General Adult General Chief complaint: Arrhythmia/Palpitations Stated complaint: MULTIPLE C/O Time Seen by Provider: 07/09/24 20:41 History of Present Illness HPI narrative: patient is a 63-year-old female who presents emergency department with chief complaint of bilateral lower extremity infection. The patient reports she was recently hospitalized for both dehydration AFib with RVR and ulcerations or lower extremities the patient is morbidly obese and has been recently hospitalized the patient states she has been home her legs have started to swell more she has had weeping from her ulcerations on her legs. Patient denies abdominal pain reports that she feels as though her heart is beating fast Related Data Home Medications Medication Instructions Recorded Confirmed multivit with minerals-iron 18 1 tablet PO DAILY 02/09/24 06/19/24 mg-folic ac 400 mcg-vit K 25 mcg tablet (Adults Multivitamin) Allergies Allergy/AdvReac Type Severity Reaction Status Date / Time codeine Allergy Unknown Other Verified 06/19/24 14:21 diazepam Allergy Unknown Other Verified 06/19/24 14:21 Review of Systems Review of Systems: A 10 system review of systems was completed on the patient and is negative except for what is stated in the HPI. Nursing and ancillary documentation was reviewed. [facility] Past Medical History Medical History Cervical cancer (2011) 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 Moderate tricuspid valve regurgitation Morbid obesity with BMI of 60.0-69.9, adult Paroxysmal atrial fibrillation Severe mitral valve regurgitation Surgical History Surgical History History of total abdominal hysterectomy and bilateral salpingo-oophorectomy (2011) Family History Family History Mother CKD (chronic kidney disease), Onset Age: 18 Glomerular nephritis Father Lung cancer Sibling Non-Hodgkin lymphoma Recurrent kidney stones Social History Social History Social History: Surrogate medical decision maker: Kishan Forrester, brother. Code status: DNR/DNI Smoking status: Never smoker Second hand tobacco smoke exposure: No Alcohol intake: never Substance use: never Do You Feel Safe in your Home?: Yes Lack of Transportation: No Lack of Food: Never True Current Housing: I Have Housing Concerned About Future Housing: No Difficulty Paying Gas/Electric Bills: No Difficulty Paying for Meds: No Currently Unemployed: No Education: Master's Degree or Higher Difficulty w/ Childcare or Family Care: No Additional living arrangements comments: The patient lives in her own home in [place]. She has a boxer named Dana. She does not have any children. 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: No Exam Narrative: GENERAL: ill-appearing, morbidly obese, and in no acute distress. HEAD: Normocephalic, atraumatic. EYES: PERRLA and EOMI. ENT: Nares clear, no rhinorrhea or epistaxis. Mucous membranes moist. NECK: Supple. CHEST: Clear to auscultation. No respiratory distress. HEART: tachycardic rate and rhythm. No murmur heard. Normal peripheral pulses. ABDOMEN: Soft, nontender, nondistended, normal active bowel sounds. EXTREMITIES: Normal range of motion. No edema. SKIN: Warm, dry, redness and weeping of the lower extremities below the knees malodorous drainage. NEURO: No focal deficits. Alert and oriented x3. PSYCH: Normal mood and affect. Course Vital Signs Vital signs: Vital Signs Temperature 36.4 C 07/09/24 20:22 Pulse Rate 182 H 07/09/24 20:22 Respiratory Rate 17 07/09/24 20:22 Blood Pressure 107/95 H 07/09/24 20:22 Pulse Oximetry 96
[2024-07-09 23:18] LABS: Procalcitonin 8.3 ng/mL
[2024-07-09 23:32] LABS: CRP 31.6 mg/dL (<1.0)
[2024-07-09 23:33] LABS: Erythrocyte Sedimentation Rate 85 mm/hr (0-20)
[2024-07-09] MEDS: CEFEPIME 2 GM/NS 50 ML 2 GM/50 ML BAG IVPB (23:42)
[2024-07-09 23:54] LABS: Influenza A QL RT-PCR Negative (Negative); Influenza B QL RT-PCR Negative (Negative); RSV RNA, RT-PCR Negative (Negative); SARS-CoV-2 RNA PCR Negative (Negative)
[2024-07-10] VITALS (52 sets, daily range): BP systolic 61–105; BP diastolic 41–84; PULSE 91–146; RESP 15–33; TEMP 35.9–38; O2SAT 82–100; BMI 59.4
--- NOTE | 2024-07-10 01:26 | PC.NURSE ---
temp mathis placed at this time.
[2024-07-10] MEDS: VANCOMYCIN 2,000 MG/NS 500 ML 2,000 MG/500 ML BAG 250 MG IVPB (01:27)
[2024-07-10 01:48] LABS: Reflex Lactic Acid Yes or No Add Lactic
[2024-07-10 01:54] LABS: Add Urine Microscopic? YES; Appearance Urine Cloudy (Clear); Bacteria Urine None Seen /hpf; Bilirubin Urine 1+ (Negative); Blood Urine Negative (Negative); Color Urine Dark Yellow (Yellow); Glucose Urine UA Negative (Negative); Ketones Urine Negative (Negative); Leukocyte Esterase Ur Trace LEU/UL (Negative); Need Manual Microscopic Reviewed; Nitrate Urine Positive (Negative); Protein Urine 1+ mg/dL (Negative); Specific Grav Ur 1.025 (1.001-1.035); Squamous Epithelial Cell Urine Few /hpf (Few); WBC Urine 0-5 /hpf (0-3)
--- NOTE | 2024-07-10 02:42 | PC.NURSE ---
Report recieved from GAMALIEL Oquendo.
[2024-07-10] MEDS: SODIUM CHLORIDE 0.9% IV 1,000 ML 125 ML IV CONT (04:08)
[2024-07-10 04:54] LABS: Lactic Acid 2.6 mmol/L (0.7-2.0)
[2024-07-10 05:12] LABS: Troponin I 0.064 ng/mL (0.000-0.034)
[2024-07-10] MEDS: DIGOXIN INJ 250 MCG/ML 2 ML AMP (*BKC) 125 MCG IV PUSH (05:20)
[2024-07-10 05:42] LABS: MRSA (PCR) NOT DETECTED (NOT DETECTE)
[2024-07-10] MEDS: ACETAMINOPHEN 500 MG TABLET 1000 MG PO ×2 (06:34→18:37)
--- NOTE | 2024-07-10 08:46 | PM.IMHP ---
H&P: HPI History of Present Illness Date/Time: 07/10/24 08:46 Chief Complaint: Bilateral LE infection Narrative: 63yo female with hx of cervical CA, lymphedema, morbid obesity and pAFib with severe MR here for concern for lower extremity infection. Patient noted small blister in her leg back in November that has progressed multiple wounds in the bilateral lower extremities. Over the next 6 months, patient was seen in the [facility] and has had multiple rounds of antibiotic treatments for her lower extremity wounds. She has not seen a surgeon for this that she is aware of. She was using soap and water 2-3 times per day, vasoline gauze and wrapping legs with improvement. More recently over the past 3-4 weeks, she has been going to the wound care clinic for dressing changes that she gets every other day. She has chronic pain to the legs but noted increasing pain over the past month. She has also had chills off and on the past month but no fevers. She noted increasing drainage more recently but no strong odor to the wounds. She does have a chronic erythema to the legs but this has worsened over the past month as well. She denies any chest pain, palpitations, cough or shortness of breath recently. She states that she feels that she is in and out of atrial fibrillation over the past 2-3 months that she correlates with blurry vision although she never checked her heart rate or heart rhythm to correlate this. She has been feeling lightheaded with standing over the past 3-4 days. She does complain of left hip pain from a ?pulled muscle? but no trauma. No dysuria or hematuria. No nausea, vomiting, diarrhea constipation. No complaint of abdominal pain. She does have a history kidney stones she passed a few months ago. No headache, odynophagia or dysphagia. She has been eating normally. She does not wear oxygen at home. She has been tested for sleep apnea and was negative. She walks with crutches. He states she takes Xarelto intermittently. She stops Xarelto for about 4-5 days at a time due to bruising but denies overt bleeding and her urine or bowels. Because of lightheadedness, increasing pain in the legs and erythema she present to the emergency room for evaluation On presentation, patient was tachycardic with HR 182 and BP 107/95. SpO2 96% on room air. EKG showing AFib/RVR (185), low voltage, age indeterminate anteroseptal infarct and borderline ST-T wave changes. CXR showing CMG and prominent markings in the left lower lobe. Bilateral tibia/fibula xrays were negative. WBC 14K, INR 1.8, sodium 128, serum bicarb 18 (AG12), BUN 48 and Cr 1.5. Lactic 3.0 with TBili 4.4 and AST 42. Troponin 0.071 but downtrending on repeat. CRP 31.6. UA abnormal and blood and urine cultures obtained. MRSA nasal swab negative. Influenza, RSV and COVID PCR negative. Patient was given ASA, Diltiazem 20mg IV once but BP dropped requiring fluid boluses. She received 3L in the ED. She was started on cefepime and Vancomycin. Digoxin was given once. Diltiazem drip started. She remained hypotensive throughout her stay in the ED and so moved to ICU. 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
[2024-07-10] MEDS: ASPIRIN 81 MG CHEWABLE TABLET PO (09:42)
[2024-07-10] MEDS: LIDOCAINE HCL 1% PF INJ 5 ML VIAL INFILTRATE (10:00)
[2024-07-10] MEDS: PHENYLEPHRINE HCL INJ 50 MG in DEXTROSE 5% IN WATER 250 ML/245 ML BAG 12 ML IV CONT (11:20)
[2024-07-10 11:56] LABS: Hematocrit 33.1 % (37.0-47.0); Hemoglobin 10.9 g/dL (12.0-15.0); Mean Corpuscular HGB Conc 32.9 g/dl (32-36); Mean Corpuscular Hemoglobin 30.8 pg (26-34); Mean Corpuscular Volume 93.5 fl (80-100); Mean Platelet Volume 9.2 fl (7.4-10.4); Platelet Count Result 261 k/mm3 (150-375); Red Blood Count 3.54 M/mm3 (4.2-5.4); Red Cell Distribution Width 15.9 % (11.5-14.5); White Blood Count 14.4 K/mm3 (4.5-10.0)
--- NOTE | 2024-07-10 11:59 | WPDCNINT ---
Assessment and Plan Assessment and plan (1) Septic shock: Code(s): A41.9 - Sepsis, unspecified organism; R65.21 - Severe sepsis with septic shock Status: Acute Assessment and Plan: Septic shock secondary to bilateral lower extremity cellulitis and UTI Do not feel any crepitus and x-rays do not suggest any subcu air Blood and urine cultures have been sent Empiric vancomycin and cefepime Start phenylephrine maintain mean arterial pressure Will decrease the rate of fluids now (2) Bilateral lower leg cellulitis: Code(s): L03.116 - Cellulitis of left lower limb; L03.115 - Cellulitis of right lower limb Status: Acute Assessment and Plan: See above Consult wound care (3) Atrial fibrillation with RVR: Code(s): I48.91 - Unspecified atrial fibrillation Status: Acute Assessment and Plan: History of chronic AFib and now in RVR On Cardizem infusion for rate control A Xarelto (4) Hyponatremia: Code(s): E87.1 - Hypo-osmolality and hyponatremia Status: Acute Assessment and Plan: Likely secondary to CHF Monitor sodium (5) UTI (urinary tract infection): Code(s): N39.0 - Urinary tract infection, site not specified Status: Acute Assessment and Plan: See above (6) Congestive heart failure: Code(s): I50.9 - Heart failure, unspecified Status: Acute Assessment and Plan: Patient appears to have right heart failure Most recent echo Summary 1. Left ventricular chamber dimension is normal. 2. Left ventricular systolic function is normal, estimated at 50-55%. 3. Right ventricular chamber dimension is mildly enlarged. 4. Right ventricular systolic function is normal. 5. Left atrial chamber dimension is severely enlarged. 6. Right atrial chamber dimension is severely enlarged. 7. There is moderate to severe mitral valve regurgitation. This may be underestimated due to the eccentricity of the jet. 8. There is moderate tricuspid valve regurgitation. (7) Morbid obesity: Code(s): E66.01 - Morbid (severe) obesity due to excess calories Status: Acute Plan DVT prophylaxis -Xarelto Nutrition -diet ordered Total Critical Care Time -30 minutes Due to a high probability of clinically significant, life threatening deterioration, the patient required my highest level of preparedness to intervene emergently and I personally spent this critical care time directly and personally managing the patient. This critical care time included obtaining a history; examining the patient; pulse oximetry; ordering and review of studies; arranging urgent treatment with development of a management plan; evaluation of patient's response to treatment; frequent reassessment; and discussions with other providers. It was exclusive of separately billable procedures and treating other patients and teaching time. Please see Assessment and Plan section and the rest of the note for further information on patient assessment and treatment [employer] Consult Note Consult date: 07/10/24 Reason for consult: Sepsis, AFib with RVR HPI: Pili Forrester is a 63 year old female with past medical history of morbid obesity, bilateral lower extremity edema and lymphedema, AFib presented to ER with chief complaint of worsening of swelling of her lower legs and redness. Patient states that she has had swelling more than 6 months and has been getting worse. Over time she developed oozing of fluid from the skin and redness. Several areas of skin breakdown over her legs. She was going to wound care clinic for management. She feels that it had gotten worse that she had to come to the hospital. She does have history of AFib and did notice some palpitations. She denies any chest pain fever shortness of breath nausea vomiting abdominal pain diarrhea constipation. She denies any dysuria hematuria or foul-smelling urine. Review of system was also positive for aching c
[2024-07-10 12:08] LABS: Alanine Aminotransferase 20 U/L (6-35); Albumin Level 2.8 g/dL (3.5-5.1); Alkaline Phosphatase 122 U/L (38-126); Anion Gap 12 mmol/L (4-12); Aspartate Amino Transferase 38 U/L (14-36); Bilirubin,Total 4.7 mg/dL (0.2-1.3); Blood Urea Nitrogen 51 mg/dL (7-17); Calcium 7.8 mg/dL (8.4-10.2); Carbon Dioxide 17 mmol/L (22-30); Chloride 101 mmol/L (98-107); Estimated CRCL calculation 47 ml/min; Estimated Glomerular Filt Rate 35; Glucose 77 mg/dL (65-110); Lactic Acid Reflex 2.1 mmol/L (0.7-2.0); Magnesium 2.2 mg/dL (1.6-2.3); Potassium 4.8 mmol/L (3.4-5.0); Sodium 130 mmol/L (137-145)
[2024-07-10] MEDS: CEFEPIME 1 GM/NS 50 ML 1 GM/50 ML BAG IVPB ×2 (12:21→23:58)
[2024-07-10] MEDS: SODIUM BICARBONATE TAB 650 MG TABLET PO ×2 (12:38→17:56)
[2024-07-10 13:03] LABS: Creatinine Urine 228.6 mg/dL
[2024-07-10 13:06] LABS: Potassium Urine Random 86.1 meq/L
[2024-07-10 13:08] LABS: Sodium Urine Random < 5 meq/L
[2024-07-10 13:25] LABS: Eosinophil Urine None Seen % (None Seen)
[2024-07-10 13:26] LABS: Urine Eos QC DJS
[2024-07-10] MEDS: CENTRAL LINE FLUSH 10 ML IV PUSH ×2 (14:04→22:00)
[2024-07-10 14:53] LABS: Reflex Lactic Acid Yes or No Add Lactic
[2024-07-10 15:31] LABS: Lactic Acid 1.9 mmol/L (0.7-2.0)
[2024-07-10 17:32] LABS: Creatine Kinase 129 U/L (30-135)
[2024-07-10] MEDS: RIVAROXABAN 20 MG TABLET PO (17:56)
[2024-07-10] MEDS: ALBUMIN HUMAN 25% 25 GM/100 ML 100 ML IVPB (17:56)
[2024-07-10] MEDS: dilTIAZem 100 MG/100 ML 100 MG/100 ML BAG IV CONT (19:10)
--- NOTE | 2024-07-10 23:02 | ADMGEN ---
This patient, Pili Forrester, was admitted to Intensive Care Unit-7 on 07/10/24 at 0315. Patient/family oriented to hospital policies and general routines including ID bracelet, bed and alarms, visiting hours, pain management, procedures, bathroom and other care routines, personal items, smoking policy, room service/diet, and visiting hours. Information on how to activate the Rapid Response Team has been discussed. Patient/Family are encouraged to report perceived risks to care and to ask questions if they do not understand what they are told or what they should do.
[2024-07-11] VITALS (16 sets, daily range): BP systolic 80–101; BP diastolic 61–77; PULSE 86–109; RESP 17–25; TEMP 36.8–37.1; O2SAT 95–100
[2024-07-11] MEDS: dilTIAZem 100 MG/100 ML 100 MG/100 ML BAG IV CONT
[2024-07-11] MEDS: ALBUMIN HUMAN 25% 25 GM/100 ML 100 ML IVPB ×2 (00:30→05:52)
[2024-07-11] MEDS: ACETAMINOPHEN 500 MG TABLET 1000 MG PO ×2 (00:34→17:15)
[2024-07-11 03:49] LABS: Vancomycin Random 10.6 ug/mL (10-20)
[2024-07-11] MEDS: VANCOMYCIN 2,000 MG/NS 500 ML 2,000 MG/500 ML BAG 250 MG IVPB (05:35)
[2024-07-11 06:42] LABS: Hematocrit 32.5 % (37.0-47.0); Hemoglobin 10.7 g/dL (12.0-15.0); Mean Corpuscular HGB Conc 32.9 g/dl (32-36); Mean Corpuscular Hemoglobin 30.5 pg (26-34); Mean Corpuscular Volume 92.6 fl (80-100); Mean Platelet Volume 9.5 fl (7.4-10.4); Platelet Count Result 257 k/mm3 (150-375); Red Blood Count 3.51 M/mm3 (4.2-5.4); Red Cell Distribution Width 16.1 % (11.5-14.5); White Blood Count 15.6 K/mm3 (4.5-10.0)
[2024-07-11 06:51] LABS: Alanine Aminotransferase 20 U/L (6-35); Alkaline Phosphatase 121 U/L (38-126); Anion Gap 12 mmol/L (4-12); Aspartate Amino Transferase 37 U/L (14-36); Bilirubin,Total 3.7 mg/dL (0.2-1.3); Blood Urea Nitrogen 56 mg/dL (7-17); Calcium 8.1 mg/dL (8.4-10.2); Carbon Dioxide 16 mmol/L (22-30); Chloride 101 mmol/L (98-107); Estimated CRCL calculation 47 ml/min; Estimated Glomerular Filt Rate 35; Glucose 104 mg/dL (65-110); Magnesium 2.4 mg/dL (1.6-2.3); Phosphorus 4.1 mg/dL (2.5-4.5); Potassium 4.4 mmol/L (3.4-5.0); Sodium 129 mmol/L (137-145)
[2024-07-11] MEDS: PHENYLEPHRINE HCL INJ 50 MG in DEXTROSE 5% IN WATER 250 ML/245 ML BAG 12 ML IV CONT (06:57)
[2024-07-11] MEDS: CENTRAL LINE FLUSH 10 ML IV PUSH ×3 (06:59→22:00)
[2024-07-11 08:21] LABS: Bilirubin Indirect 0.8 mg/dL (0-1.1)
[2024-07-11] MEDS: SODIUM BICARBONATE TAB 650 MG TABLET 1300 MG PO ×2 (08:50→17:17)
[2024-07-11] MEDS: MULTIVITAMINS /C LUTEIN (CENTRUM SILVER) TABLET *BKC 1 TAB PO (08:50)
[2024-07-11] MEDS: ASPIRIN 81 MG CHEWABLE TABLET PO (08:50)
[2024-07-11] MEDS: dilTIAZem HCL 30 MG TABLET PO ×3 (08:51→17:15)
--- NOTE | 2024-07-11 09:43 | WPDINTPN ---
Progress Note: A&P Assessment and Plan (1) Septic shock: Code(s): A41.9 - Sepsis, unspecified organism; R65.21 - Severe sepsis with septic shock Status: Acute Assessment and Plan: Septic shock secondary to bilateral lower extremity cellulitis and UTI Blood cultures growing Gram-negative rods Do not feel any crepitus and x-rays do not suggest any subcutaneous air Continue Empiric vancomycin and cefepime Continue low-dose phenylephrine maintain mean arterial pressure Patient is overall volume overloaded hence further fluids have been discontinued Patient received albumin (2) Bilateral lower leg cellulitis: Code(s): L03.116 - Cellulitis of left lower limb; L03.115 - Cellulitis of right lower limb Status: Acute Assessment and Plan: See above Local wound care per Wound Care consultation (3) Atrial fibrillation with RVR: Code(s): I48.91 - Unspecified atrial fibrillation Status: Acute Assessment and Plan: History of chronic AFib and now in RVR On low rate Cardizem infusion for rate control Will switch to p.o. Continue Xarelto (4) Hyponatremia: Code(s): E87.1 - Hypo-osmolality and hyponatremia Status: Acute Assessment and Plan: Likely secondary to CHF Sodium chloride tablet Monitor sodium (5) UTI (urinary tract infection): Code(s): N39.0 - Urinary tract infection, site not specified Status: Acute Assessment and Plan: See above (6) Congestive heart failure: Code(s): I50.9 - Heart failure, unspecified Status: Acute Assessment and Plan: Patient appears to have right heart failure Most recent echo Summary 1. Left ventricular chamber dimension is normal. 2. Left ventricular systolic function is normal, estimated at 50-55%. 3. Right ventricular chamber dimension is mildly enlarged. 4. Right ventricular systolic function is normal. 5. Left atrial chamber dimension is severely enlarged. 6. Right atrial chamber dimension is severely enlarged. 7. There is moderate to severe mitral valve regurgitation. This may be underestimated due to the eccentricity of the jet. 8. There is moderate tricuspid valve regurgitation. (7) Morbid obesity: Code(s): E66.01 - Morbid (severe) obesity due to excess calories Status: Acute (8) Acute kidney injury: Code(s): N17.9 - Acute kidney failure, unspecified Status: Acute Assessment and Plan: Elevated creatinine likely secondary to sepsis and shock Patient received IV fluids but no significant improvement in creatinine at this time Monitor urine output electrolytes and creatinine She had recent renal ultrasound which showed normal kidneys with without any hydronephrosis Normal CK Consult nephrology Plan DVT prophylaxis -Xarelto Nutrition -diet ordered Total Critical Care Time -30 minutes Due to a high probability of clinically significant, life threatening deterioration, the patient required my highest level of preparedness to intervene emergently and I personally spent this critical care time directly and personally managing the patient. This critical care time included obtaining a history; examining the patient; pulse oximetry; ordering and review of studies; arranging urgent treatment with development of a management plan; evaluation of patient's response to treatment; frequent reassessment; and discussions with other providers. It was exclusive of separately billable procedures and treating other patients and teaching time. Please see Assessment and Plan section and the rest of the note for further information on patient assessment and treatment Subjective Date/time seen: 07/11/24 Overnight events reviewed. Afebrile On room air Low urine output Tolerating p.o. diet Continues to be in AFib but ventricular rate is controlled on Cardizem 2.5 milligram/hour infusion On low-dose Jama-Synephrine to support her blood pressure She complains
--- NOTE | 2024-07-11 11:51 | PM.CNNEP ---
Assessment and Plan Assessment and plan (1) Renal insufficiency: Code(s): N28.9 - Disorder of kidney and ureter, unspecified Status: Acute Assessment and Plan: The patient has an elevated creatinine. Prior to this it had usually been normal. The patient has a low urine sodium of less than 5. Her renal ultrasound is unremarkable. Most likely the patient has pre renal azotemia and possibly ATN from sepsis. The pre renal azotemia is probably multifactorial, including low blood pressure, mitral regurg and poor cardiac output, and 3rd spacing from sepsis. At this point the patient looks relatively stable. She is not short of breath and she is on room air. Her blood pressure is pretty good but is on the phenylephrine still. With treatment of the hypotension and giving antibiotics hopefully the renal function will improve but it may take a few days. (2) Edema of both legs: Code(s): R60.0 - Localized edema Status: Acute Assessment and Plan: The patient has severe edema. This is most likely due to her tricuspid regurgitation. Will check a urine protein as well to see if she has nephrotic range proteinuria. Her urinalysis showed only 1 +protein in a concentrated urine so I do not think this is the case. She does have a history of uterine cancer. Down the line when more stable we might consider a CT of the abdomen and pelvis just to make sure there is nothing going on in the retroperitoneal space.. (3) Wounds, multiple: Code(s): T07.XXXA - Unspecified multiple injuries, initial encounter Status: Chronic Assessment and Plan: The patient is getting local care and antibiotics. (4) Atrial fibrillation with rapid ventricular response: Code(s): I48.91 - Unspecified atrial fibrillation Status: Acute Assessment and Plan: The patient has atrial fibrillation. HR 98 (5) Hypothyroidism: Code(s): E03.9 - Hypothyroidism, unspecified Status: Acute Assessment and Plan: TSH normal in March. She is not on any supplement. (6) Leukocytosis: Qualifiers: Leukocytosis type: unspecified Qualified Code(s): D72.829 - Elevated white blood cell count, unspecified Code(s): D72.829 - Elevated white blood cell count, unspecified Status: Acute Assessment and Plan: Says probably due to the cellulitis in her legs History of Present Illness Reason for Consult Consult date: 07/11/24 Chief Complaint Chief complaint: Atrial fibrillation with rapid ventricular respons History of Present Illness Narrative: Pili is a very pleasant 63-year-old lady who has an elevated creatinine. The patient has history of cervical cancer, lymphedema, morbid obesity, paroxysmal atrial fibrillation with severe mitral regurgitation. The patient came into the hospital because of lower extremity infection. She says that in November noticed a blister 1 morning when she woke up. She treated it with Neosporin and over the next few days to weeks the skin became more and more inflamed. She started seeing [facility] here at [facility]. She was getting local wound care. This continued to worsen and eventually she came in the hospital yesterday because of the wounds. She told me that she had no swelling at all before October. The swelling that she has now began at the same time as the blistering. She told me that she has never had any kidney problems. She has been in an out of the hospital a couple of times in the last few months dealing with the wounds and the swelling. Her creatinine generally has been normal although occasionally has been a little bit above 1. On admission this time the creatinine was 1.5 and is not improved The patient does have hypotension. It is felt that she has sepsis and septic shock. She is on phenylephrine to maintain her blood pressure. Patient has chronic atrial fibrillation and is on Xarelto plus Cardizem. The patient nowak
[2024-07-11] MEDS: CEFEPIME 1 GM/NS 50 ML 1 GM/50 ML BAG IVPB (12:08)
--- NOTE | 2024-07-11 16:57 | PM.IMPN ---
Progress Note: A&P Assessment and Plan (1) Septic shock: Code(s): A41.9 - Sepsis, unspecified organism; R65.21 - Severe sepsis with septic shock Status: Acute Assessment and Plan: Patient presents with symptoms of bilateral lower extremity cellulitis. Patient with septic shock noted by fever, low blood pressure, tachycardia, leukocytosis, and lactic acidosis. Consider also cardiogenic shock from severe tachycardia. Doubt that she is in cardiogenic failure from the mitral valve given that her chest x-ray is not consistent with pulmonary edema. Lactic acid trended to normal. Blood pressure has improved with IV fluids and phenylephrine. This is complicated by patient being on diltiazem her AFib/RVR. BCx growing pasteurella multocida in both bottles. LE skin lesions do not appear to resemble purpura fulminans which is more purpuric lesions with skin necrosis. Source is probably her dog. Risk of endocarditis is extremely rare. Continue cefepime and vancomycin. Check cortisol and TSH. Wound care consulted Repeat BCx. (2) Atrial fibrillation with rapid ventricular response: Code(s): I48.91 - Unspecified atrial fibrillation Status: Acute Assessment and Plan: Patient has a history of paroxysmal atrial fibrillation. Unclear if she is been in an out of AFib since her symptom is blurry vision. Echo in December 2023 showing normal LV systolic function with EF of 50-55%, mildly enlarged RV with normal RV systolic function, severe biatrial enlargement, moderate-severe MR and moderate TR. Patient is noncompliant with Xarelto and admits to stopping Xarelto for 4-5 days at a time due to bruising. Baseline hemoglobin is 11-13. Hemoglobin 11.2 on admission and trending down. Started on Diltiazem IV drip but BP became soft so phenylephrine started. Heart rate became better controlled. Switched to oral diltiazem. Continue pressor support to improve blood pressure. Consider amiodarone. Consider cardiology consult. Xarelto resumed. Monitor hemoglobin. Monitor HR and BP (3) Bilateral lower leg cellulitis: Code(s): L03.116 - Cellulitis of left lower limb; L03.115 - Cellulitis of right lower limb Status: Acute Assessment and Plan: As above. Continue IV antibiotics. Wound care consult. Continue wound care treatment. Check LE venous dopplers to exclude DVT since she takes Xarelto intermittently. (4) Hyponatremia: Code(s): E87.1 - Hypo-osmolality and hyponatremia Status: Acute Assessment and Plan: Sodium 128 on admission. Probably related to dehydration given the elevated renal function. Urine Eos negative. Urine Na <5 with FENa .02% consistent prerenal (probably from poor renal perfusion from HoTN) Sodium about the same. She has been fluid resuscitated and is positive 7.1L. Follow (5) Acute kidney injury: Code(s): N17.9 - Acute kidney failure, unspecified Status: Acute Assessment and Plan: Patient has normal baseline renal function. BUN 48 and creatinine 1.5 on admission. Prior related to ATN from sepsis/HoTN and/or prerenal from dehydration although she has been eating well, not on diuretics and she denies nausea, vomiting or diarrhea. Renal ultrasound showing normal kidneys. Renal function worse with BUN 56 and Cr unchanged. Now with worsening metabolic acidosis. BP still soft but better and fluid positive so probably ATN. Nephrology consulted and appreciate their input. Follow (6) Abnormal finding on urinalysis: Code(s): R82.90 - Unspecified abnormal findings in urine Status: Acute Assessment and Plan: UA noted. Consider UTI. Antibiotics started as above UCx pending (7) Nonrheumatic mitral valve regurgitation: Code(s): I34.0 - Nonrheumatic mitral (valve) insufficiency Status: Acute Assessment and Plan: Echocardiogram in December 2023 showing moderate-severe mitral valve regurgitation which may be an undere
[2024-07-11] MEDS: RIVAROXABAN 20 MG TABLET PO (17:15)
[2024-07-12] VITALS (18 sets, daily range): BP systolic 86–132; BP diastolic 64–90; PULSE 82–104; RESP 15–21; TEMP 36.6–37.2; O2SAT 94–98
[2024-07-12] MEDS: dilTIAZem HCL 30 MG TABLET PO ×4 (00:15→17:22)
[2024-07-12] MEDS: CEFEPIME 1 GM/NS 50 ML 1 GM/50 ML BAG IVPB ×2 (00:15→11:25)
[2024-07-12] MEDS: PHENYLEPHRINE HCL INJ 50 MG in DEXTROSE 5% IN WATER 250 ML/245 ML BAG 12 ML IV CONT (04:45)
[2024-07-12] MEDS: ACETAMINOPHEN 500 MG TABLET 1000 MG PO ×2 (06:05→20:16)
[2024-07-12] MEDS: CENTRAL LINE FLUSH 10 ML IV PUSH ×3 (06:08→20:16)
[2024-07-12 06:45] LABS: Hematocrit 33.8 % (37.0-47.0); Hemoglobin 11.1 g/dL (12.0-15.0); Mean Corpuscular HGB Conc 32.8 g/dl (32-36); Mean Corpuscular Hemoglobin 30.2 pg (26-34); Mean Corpuscular Volume 92.1 fl (80-100); Mean Platelet Volume 9.8 fl (7.4-10.4); Platelet Count Result 256 k/mm3 (150-375); Red Blood Count 3.67 M/mm3 (4.2-5.4); White Blood Count 15.8 K/mm3 (4.5-10.0)
[2024-07-12 06:55] LABS: Alanine Aminotransferase 20 U/L (6-35); Albumin Level 2.9 g/dL (3.5-5.1); Alkaline Phosphatase 138 U/L (38-126); Anion Gap 10 mmol/L (4-12); Aspartate Amino Transferase 35 U/L (14-36); Bilirubin,Total 2.5 mg/dL (0.2-1.3); Blood Urea Nitrogen 51 mg/dL (7-17); Calcium 8.2 mg/dL (8.4-10.2); Carbon Dioxide 18 mmol/L (22-30); Chloride 101 mmol/L (98-107); Estimated CRCL calculation 59 ml/min; Estimated Glomerular Filt Rate 45; Glucose 85 mg/dL (65-110); Magnesium 2.4 mg/dL (1.6-2.3); Phosphorus 3.1 mg/dL (2.5-4.5); Potassium 4.4 mmol/L (3.4-5.0); Sodium 129 mmol/L (137-145)
[2024-07-12 06:57] LABS: Lactate Dehydrogenase 194 U/L (120-246)
[2024-07-12 07:02] LABS: Vancomycin Random 14.9 ug/mL (10-20)
--- NOTE | 2024-07-12 07:51 | WPDINTPN ---
Progress Note: A&P Assessment and Plan (1) Septic shock: Code(s): A41.9 - Sepsis, unspecified organism; R65.21 - Severe sepsis with septic shock Status: Acute Assessment and Plan: Septic shock secondary to bilateral lower extremity cellulitis and UTI Blood cultures x 2 growing Pasteurella Multocida. Patient has a dog at home which often lays in her legs or clicks her legs which have skin breakdown. This is likely the cause of infection. Do not feel any crepitus and x-rays do not suggest any subcutaneous air Continue Empiric cefepime and add Flagyl. DC vancomycin. Will continue IV antibiotics until patient is on pressors and then transition to p.o. Continue low-dose phenylephrine maintain mean arterial pressure Patient is overall volume overloaded hence further fluids have been discontinued Patient received albumin At midodrin (2) Bilateral lower leg cellulitis: Code(s): L03.116 - Cellulitis of left lower limb; L03.115 - Cellulitis of right lower limb Status: Acute Assessment and Plan: See above Local wound care per Wound Care consultation (3) Atrial fibrillation with RVR: Code(s): I48.91 - Unspecified atrial fibrillation Status: Acute Assessment and Plan: History of chronic AFib and now in RVR On p.o. Cardizem Continue Xarelto (4) Hyponatremia: Code(s): E87.1 - Hypo-osmolality and hyponatremia Status: Acute Assessment and Plan: Likely secondary to CHF Sodium bicarbonate and chloride tablet Monitor sodium (5) UTI (urinary tract infection): Code(s): N39.0 - Urinary tract infection, site not specified Status: Acute Assessment and Plan: See above (6) Congestive heart failure: Code(s): I50.9 - Heart failure, unspecified Status: Acute Assessment and Plan: Patient appears to have right heart failure Most recent echo Summary 1. Left ventricular chamber dimension is normal. 2. Left ventricular systolic function is normal, estimated at 50-55%. 3. Right ventricular chamber dimension is mildly enlarged. 4. Right ventricular systolic function is normal. 5. Left atrial chamber dimension is severely enlarged. 6. Right atrial chamber dimension is severely enlarged. 7. There is moderate to severe mitral valve regurgitation. This may be underestimated due to the eccentricity of the jet. 8. There is moderate tricuspid valve regurgitation. (7) Morbid obesity: Code(s): E66.01 - Morbid (severe) obesity due to excess calories Status: Acute (8) Acute kidney injury: Code(s): N17.9 - Acute kidney failure, unspecified Status: Acute Assessment and Plan: Elevated creatinine likely secondary to sepsis and shock Patient received IV fluids earlier but now off Creatinine marginally improved to 1.2 Monitor urine output electrolytes and creatinine She had recent renal ultrasound which showed normal kidneys with without any hydronephrosis Normal CK Nephrology consult Plan DVT prophylaxis -Xarelto Nutrition -diet ordered PT OT Up in chair Total Critical Care Time -31 minutes Due to a high probability of clinically significant, life threatening deterioration, the patient required my highest level of preparedness to intervene emergently and I personally spent this critical care time directly and personally managing the patient. This critical care time included obtaining a history; examining the patient; pulse oximetry; ordering and review of studies; arranging urgent treatment with development of a management plan; evaluation of patient's response to treatment; frequent reassessment; and discussions with other providers. It was exclusive of separately billable procedures and treating other patients and teaching time. Please see Assessment and Plan section and the rest of the note for further information on patient assessment and treatment Subjective Date/time seen: 07/12/24 Overnight e
[2024-07-12] MEDS: MULTIVITAMINS /C LUTEIN (CENTRUM SILVER) TABLET *BKC 1 TAB PO (07:53)
[2024-07-12] MEDS: ASPIRIN 81 MG CHEWABLE TABLET PO (07:53)
[2024-07-12] MEDS: SODIUM BICARBONATE TAB 650 MG TABLET 1300 MG PO ×2 (07:53→17:22)
[2024-07-12 08:31] LABS: Free T4 Free Thyroxine Reflex 1.24 ng/dL (0.78-2.19)
--- NOTE | 2024-07-12 08:32 | PC.NURSE ---
Family updated that patient requested no visitors until after lunch today. Family verbalized understanding.
--- NOTE | 2024-07-12 08:53 | PM.PNNEP ---
Progress Note: A&P Assessment and Plan (1) Renal insufficiency: Code(s): N28.9 - Disorder of kidney and ureter, unspecified Status: Acute Assessment and Plan: The patient has an elevated creatinine. Prior to this it had usually been normal. The patient has a low urine sodium of less than 5. Her renal ultrasound is unremarkable. Patient has acute kidney injury. This is multifactorial. She probably has ATN from sepsis. She probably has pre renal azotemia from low blood pressure, 3rd spacing from sepsis, tricuspid regurgitation. She is getting antibiotics and pressors for blood pressure support. Her urine sodium is very low so she probably needs a little fluid. She is very swollen of course but I do think she is pre renal. We can not fix tricuspid regurg unfortunately. Hopefully 3rd spacing from sepsis will improve from antibiotics. Blood pressure is better but she is still dry. Will give a little bit of IV fluids. (2) Edema of both legs: Code(s): R60.0 - Localized edema Status: Acute Assessment and Plan: The patient has severe edema. This is most likely due to her tricuspid regurgitation. I doubt if she has much proteinuria but will check this. Will check an apnea link to see if she has sleep apnea. Consider CT abdomen and pelvis without contrast down the let to look at the retroperitoneal area. (3) Wounds, multiple: Code(s): T07.XXXA - Unspecified multiple injuries, initial encounter Status: Chronic Assessment and Plan: The patient is getting local care and antibiotics. (4) Atrial fibrillation with rapid ventricular response: Code(s): I48.91 - Unspecified atrial fibrillation Status: Acute Assessment and Plan: The patient has atrial fibrillation. HR 87 (5) Hypothyroidism: Code(s): E03.9 - Hypothyroidism, unspecified Status: Acute Assessment and Plan: TSH normal in March. She is not on any supplement. (6) Leukocytosis: Qualifiers: Leukocytosis type: unspecified Qualified Code(s): D72.829 - Elevated white blood cell count, unspecified Code(s): D72.829 - Elevated white blood cell count, unspecified Status: Acute Assessment and Plan: Says probably due to the cellulitis in her legs Subjective Date/time seen: 07/12/24 08:53 Interval history: Patient feels about the same. She still very sore in her legs. Review of Systems Cardiovascular: Cardiovascular: Reports no additional cardiovascular complaints Respiratory: Respiratory: Reports no additional respiratory complaints Gastrointestinal: Gastrointestinal: Reports no additional gastrointestinal complaints Genitourinary: Genitourinary: Reports no additional female genitourinary complaints Exam Narrative: WDWN in NAD skin no rash head ncat lungs clear cor irregularly irregular rhythm no rub abd BS+ nontender and soft ext 2 to3+ bilateral edema. Venous stasis changes. Objective Data Vital Signs Vital Signs: Vital Signs - 24 hr 07/11/24 10:00 07/11/24 10:00 07/11/24 10:00 Temperature 98.4 F Pulse Rate 98 98 98 Respiratory Rate 20 Blood Pressure 89/72 L 89/72 L Pulse Oximetry 98 Oxygen Delivery 07/11/24 12:00 07/11/24 12:00 07/11/24 12:00 Temperature 98.7 F Pulse Rate 100 100 Respiratory Rate 24 H Blood Pressure 96/70 L 96/70 L Pulse Oximetry 100 100 Oxygen Delivery Room Air 07/11/24 12:00 07/11/24 14:00 07/11/24 14:00 Temperature 98.7 F Pulse Rate 92 94 94 Respiratory Rate 18 Blood Pressure 99/71 L Pulse Oximetry 97 Oxygen Delivery 07/11/24 16:00 07/11/24 14:00 07/11/24 16:00 Temperature 98.7 F Pulse Rate 99 94 99 Respiratory Rate 19 Blood Pressure 93/77 L 99/71 L 93/77 L Pulse Oximetry 98 Oxygen Delivery 07/11/24 16:00 07/11/24 16:00 07/11/24 18:00 Temperature Pulse Rate 105 H 100 Respiratory Rate Blood Pressure 95/70 L
[2024-07-12] MEDS: metroNIDAZOLE 500 MG/ISO 100ML 500 MG/100 ML BAG 100 MG IVPB ×3 (09:09→20:16)
[2024-07-12] MEDS: SODIUM CHLORIDE 500 MG TABLET PO (09:09)
[2024-07-12] MEDS: MIDODRINE HCL 10 MG TABLET PO ×3 (09:09→17:22)
[2024-07-12 09:15] LABS: Total Triiodothyronine (T3) 0.55 NG/ML (0.97-1.69)
[2024-07-12] MEDS: SODIUM CHLORIDE 0.9% IV 1,000 ML 100 ML IV CONT (09:19)
[2024-07-12 09:59] LABS: Creatine Kinase 38 U/L (30-135); Total Protein Urine Random 15 mg/dL; Ur Ttl Prot Creatinine Ratio 0.16 mg/mg (0-0.20)
--- NOTE | 2024-07-12 11:43 | PM.IMPN ---
Progress Note: A&P Assessment and Plan (1) Septic shock: Code(s): A41.9 - Sepsis, unspecified organism; R65.21 - Severe sepsis with septic shock Status: Acute Assessment and Plan: Patient presents with symptoms of bilateral lower extremity cellulitis. Patient with septic shock noted by fever, low blood pressure, tachycardia, leukocytosis, and lactic acidosis. Consider also cardiogenic shock from severe tachycardia. Doubt that she is in cardiogenic failure from the mitral valve given that her chest x-ray is not consistent with pulmonary edema. Lactic acid trended to normal. Blood pressure has improved with IV fluids and phenylephrine. This is complicated by patient being on diltiazem her AFib/RVR. Cortisol and TSH okay. Cortisol elevated but infection causing a stress response. BCx growing pasteurella multocida in both bottles. LE skin lesions do not appear to resemble purpura fulminans which is more purpuric lesions with skin necrosis. Source is probably her dog. Risk of endocarditis is extremely rare. Continue cefepime. Flagyl added. Midodrinie added. Weaning off phyenlephrine as BP tolerates. Wound care consulted Repeat BCx pending. (2) Atrial fibrillation with rapid ventricular response: Code(s): I48.91 - Unspecified atrial fibrillation Status: Acute Assessment and Plan: Patient has a history of paroxysmal atrial fibrillation. Unclear if she is been in an out of AFib since her symptom is blurry vision. Echo in December 2023 showing normal LV systolic function with EF of 50-55%, mildly enlarged RV with normal RV systolic function, severe biatrial enlargement, moderate-severe MR and moderate TR. Patient is noncompliant with Xarelto and admits to stopping Xarelto for 4-5 days at a time due to bruising. Baseline hemoglobin is 11-13. Hemoglobin 11.2 on admission and trending down. Xarelto resumed. Started on Diltiazem IV drip but BP became soft so phenylephrine started. Heart rate became better controlled. Switched to oral diltiazem. Continue pressor support to improve blood pressure. Monitor hemoglobin. Monitor HR and BP (3) Bilateral lower leg cellulitis: Code(s): L03.116 - Cellulitis of left lower limb; L03.115 - Cellulitis of right lower limb Status: Acute Assessment and Plan: LE venous doppler showing no thrombosed vessels but exam incomplete due to her size. Possible right sided failure with moderate TR As above. Continue IV antibiotics. Wound care consult. Continue wound care treatment. Continue Xarelto (4) Hyponatremia: Code(s): E87.1 - Hypo-osmolality and hyponatremia Status: Acute Assessment and Plan: Sodium 128 on admission. Probably related to dehydration given the elevated renal function. Urine Eos negative. Urine Na <5 with FENa .02% consistent prerenal (probably from poor renal perfusion from HoTN) Sodium about the same. She has been fluid resuscitated and she is fluid positive. Follow (5) Acute kidney injury: Code(s): N17.9 - Acute kidney failure, unspecified Status: Acute Assessment and Plan: Patient has normal baseline renal function. BUN 48 and creatinine 1.5 on admission. Prior related to ATN from sepsis/HoTN and/or prerenal from dehydration although she has been eating well, not on diuretics and she denies nausea, vomiting or diarrhea. Renal ultrasound showing normal kidneys. Renal function better with BUN 51 and Cr 1.2. Metabolic acidosis improved. Probably prerenal from dehydration and HoTN with ATN from sepsis. Nephrology consulted and appreciate their input. Follow (6) Abnormal finding on urinalysis: Code(s): R82.90 - Unspecified abnormal findings in urine Status: Acute Assessment and Plan: UA noted. Consider UTI. Antibiotics started as above UCx growing mixed genital geri. UTI ruled out (7) Nonrheumatic mitral valve regurgitation: Code(s): I34.0 - Nonrheumat
[2024-07-12] MEDS: RIVAROXABAN 20 MG TABLET PO (17:22)
--- NOTE | 2024-07-12 21:41 | PC.NURSE ---
Patient was made aware of apena link study planned for overnight. Patient states she has had in the past and doesn't feel it is necessary to do again. Patient was advised of patient rights to refuse treatment, provided education. Patient states she would not wear a cpap even if she was dx with sleep apnea and is declining to perform study. Will notify Resp Therapist nas.
[2024-07-13] VITALS (13 sets, daily range): BP systolic 94–108; BP diastolic 66–82; PULSE 80–114; RESP 16–22; TEMP 36.8–37.1; O2SAT 95–100
[2024-07-13] MEDS: dilTIAZem HCL 30 MG TABLET PO ×4 (00:06→18:42)
[2024-07-13] MEDS: CEFEPIME 1 GM/NS 50 ML 1 GM/50 ML BAG IVPB (00:07)
[2024-07-13] MEDS: metroNIDAZOLE 500 MG/ISO 100ML 500 MG/100 ML BAG 100 MG IVPB ×2 (02:26→08:30)
--- NOTE | 2024-07-13 03:12 | PCRCNOTE ---
Pt told the RN and the Respiratory therapist that she did not want to do the Apnea link test after it was explained to her. She stated she was tested previously. Apnea link was refused by patient.
[2024-07-13 05:16] LABS: Hematocrit 33.7 % (37.0-47.0); Hemoglobin 11.1 g/dL (12.0-15.0); Mean Corpuscular HGB Conc 32.9 g/dl (32-36); Mean Corpuscular Hemoglobin 30.7 pg (26-34); Mean Corpuscular Volume 93.4 fl (80-100); Mean Platelet Volume 9.5 fl (7.4-10.4); Platelet Count Result 259 k/mm3 (150-375); Red Blood Count 3.61 M/mm3 (4.2-5.4); White Blood Count 15.9 K/mm3 (4.5-10.0)
[2024-07-13 05:45] LABS: Alanine Aminotransferase 18 U/L (6-35); Albumin Level 2.8 g/dL (3.5-5.1); Alkaline Phosphatase 142 U/L (38-126); Anion Gap 7 mmol/L (4-12); Aspartate Amino Transferase 38 U/L (14-36); Bilirubin,Total 1.9 mg/dL (0.2-1.3); Blood Urea Nitrogen 44 mg/dL (7-17); Carbon Dioxide 21 mmol/L (22-30); Chloride 102 mmol/L (98-107); Estimated CRCL calculation 70 ml/min; Estimated Glomerular Filt Rate 56; Glucose 92 mg/dL (65-110); Magnesium 2.3 mg/dL (1.6-2.3); Phosphorus 2.8 mg/dL (2.5-4.5); Potassium 4.3 mmol/L (3.4-5.0); Sodium 130 mmol/L (137-145)
[2024-07-13] MEDS: CENTRAL LINE FLUSH 10 ML IV PUSH ×3 (06:30→21:02)
[2024-07-13] MEDS: MULTIVITAMINS /C LUTEIN (CENTRUM SILVER) TABLET *BKC 1 TAB PO (08:30)
[2024-07-13] MEDS: ASPIRIN 81 MG CHEWABLE TABLET PO (08:30)
[2024-07-13] MEDS: SODIUM BICARBONATE TAB 650 MG TABLET 1300 MG PO ×2 (08:30→18:42)
[2024-07-13] MEDS: MIDODRINE HCL 10 MG TABLET PO ×3 (08:30→18:41)
[2024-07-13] MEDS: SODIUM CHLORIDE 500 MG TABLET PO (08:30)
--- NOTE | 2024-07-13 08:39 | WPDINTPN ---
Progress Note: A&P Assessment and Plan (1) Septic shock: Code(s): A41.9 - Sepsis, unspecified organism; R65.21 - Severe sepsis with septic shock Status: Acute Assessment and Plan: Septic shock secondary to bilateral lower extremity cellulitis and UTI Blood cultures x 2 growing Pasteurella Multocida. Patient has a dog at home which often lays in her legs or clicks her legs which have skin breakdown. This is likely the cause of infection. Do not feel any crepitus and x-rays do not suggest any subcutaneous air Currently on cefepime and add Flagyl. Off vancomycin. Will switch to p.o. Augmentin Continue low-dose phenylephrine maintain mean arterial pressure has been weaned Patient is overall volume overloaded hence further fluids have been discontinued Patient received albumin earlier and will continue for another 24 hours Continue midodrine (2) Bilateral lower leg cellulitis: Code(s): L03.116 - Cellulitis of left lower limb; L03.115 - Cellulitis of right lower limb Status: Acute Assessment and Plan: See above Local wound care per Wound Care consultation (3) Atrial fibrillation with RVR: Code(s): I48.91 - Unspecified atrial fibrillation Status: Acute Assessment and Plan: History of chronic AFib and now in RVR On p.o. Cardizem Continue Xarelto (4) Hyponatremia: Code(s): E87.1 - Hypo-osmolality and hyponatremia Status: Acute Assessment and Plan: Likely secondary to CHF Sodium bicarbonate and chloride tablet Monitor sodium (5) UTI (urinary tract infection): Code(s): N39.0 - Urinary tract infection, site not specified Status: Acute Assessment and Plan: See above (6) Congestive heart failure: Code(s): I50.9 - Heart failure, unspecified Status: Acute Assessment and Plan: Patient appears to have right heart failure. Dobutamine not started due to AFib with RVR Most recent echo Summary 1. Left ventricular chamber dimension is normal. 2. Left ventricular systolic function is normal, estimated at 50-55%. 3. Right ventricular chamber dimension is mildly enlarged. 4. Right ventricular systolic function is normal. 5. Left atrial chamber dimension is severely enlarged. 6. Right atrial chamber dimension is severely enlarged. 7. There is moderate to severe mitral valve regurgitation. This may be underestimated due to the eccentricity of the jet. 8. There is moderate tricuspid valve regurgitation. (7) Morbid obesity: Code(s): E66.01 - Morbid (severe) obesity due to excess calories Status: Acute (8) Acute kidney injury: Code(s): N17.9 - Acute kidney failure, unspecified Status: Acute Assessment and Plan: Elevated creatinine likely secondary to sepsis and shock Patient received IV fluids earlier but now off Creatinine marginally improved to 1.0 Monitor urine output electrolytes and creatinine She had recent renal ultrasound which showed normal kidneys with without any hydronephrosis Normal [facility] Nephrology following Plan DVT prophylaxis -Xarelto Nutrition -diet ordered PT OT Up in chair Discussed with Dr. Salter and Dr. Burdick Total Critical Care Time -30 minutes Due to a high probability of clinically significant, life threatening deterioration, the patient required my highest level of preparedness to intervene emergently and I personally spent this critical care time directly and personally managing the patient. This critical care time included obtaining a history; examining the patient; pulse oximetry; ordering and review of studies; arranging urgent treatment with development of a management plan; evaluation of patient's response to treatment; frequent reassessment; and discussions with other providers. It was exclusive of separately billable procedures and treating other patients and teaching time. Please see Assessment and Plan section and the rest of the note for further infor
--- NOTE | 2024-07-13 09:47 | PM.PNNEP ---
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 and tricuspid regurgitation evaluation to date noted: urine electrolytes prerenal renal ultrasound unremarkable urine eosinophils negative CPK normal no significant proteinuria s/p trial of IVFs on 07/12 creatinine better with improvement in UOP follow trend of repeat labs and urine output (2) Septic shock: Code(s): A41.9 - Sepsis, unspecified organism; R65.21 - Severe sepsis with septic shock Status: Acute Assessment and Plan: thought to be secondary to bilateral lower extremity cellulitis and UTI blood culture with Pasteurella multocida suspect her dog licked her LE wounds/areas of skin breakdown leading to infection on antibiotic therapy weaned off vasopressor therapy on midodrine therapy (3) Hyponatremia: Code(s): E87.1 - Hypo-osmolality and hyponatremia Status: Acute Assessment and Plan: likely due to 3rd spacing and previous IVF resuscitation still suspect some element of intravascular volume depletion despite outward signs of volume overload on salt tabs and sodium bicrabonate follow trend of sodium (4) Bilateral lower leg cellulitis: Code(s): L03.116 - Cellulitis of left lower limb; L03.115 - Cellulitis of right lower limb Status: Acute Assessment and Plan: see #2 continue local wound care and therapy as outlined (5) Atrial fibrillation with RVR: Code(s): I48.91 - Unspecified atrial fibrillation Status: Acute Assessment and Plan: known history of chronic AFib continue rate control strategy on anticoagulation (6) UTI (urinary tract infection): Code(s): N39.0 - Urinary tract infection, site not specified Status: Acute Assessment and Plan: admission UA suggestive urine culture negative (7) Congestive heart failure: Code(s): I50.9 - Heart failure, unspecified Status: Acute Assessment and Plan: appears right sided with associated MR and TR difficult to treat given suspected intravascular volume depletion continue supportive therapy Will continue to follow. Subjective Date/time seen: 07/13/24 09:47 Interval history: Follow-up for acute kidney injury/acute renal failure. Chart reviewed -- assuming care from Dr. Burdick; renal function/creatinine better with slight improvement in urine output following trial of IVFs yesterday; weaned off vasopressor therapy with relative stability in hemodynamics; reports that overall she feels better but still has significant discomfort/pain in her lower extremities particularly with dressings changes. Exam Narrative: General: large female in NAD Heart: normal S1 and S2; no rub Lungs: clear to auscultation Abdomen: obese but soft, nontender, nondistended, positive bowel sounds Extremities: extensive swelling/edema/lymphedema noted Skin: LEs with erythema, tenderness to touch, and multiple areas of skin breakdown associated with fluid; chronic venous stasis changes present Objective Data Vital Signs Vital Signs: Vital Signs Temp Pulse Resp BP Pulse Ox O2 Del Method 07/13/24 08:00 110 H 07/13/24 08:00 Room Air 07/13/24 08:00 107 H 101/77 07/13/24 08:00 98.3 F 102 H 20 101/77 96 07/13/24 07:15 88 105/70 07/13/24 06:00 89 101/66 07/13/24 06:00 98.3 F 89 21 H 101/66 96 07/13/24 06:00 89 07/13/24 04:00 Room Air 07/13/24 04:00 80 07/13/24 04:00 98.4 F 86 16 97/66 L 96 07/13/24 04:00 86 97/66 L 07/13/24 02:00 83 07/13/24 02:00 98.6 F 83 16 98/68 L 95 07/13/24 02:00 83 98/68 L
--- NOTE | 2024-07-13 09:47 | P.PNNP_ITS ---
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 tricuspid regurgitation * evaluation to date noted: * urine electrolytes prerenal * renal ultrasound unremarkable * urine eosinophils negative * CPK normal * no significant proteinuria * s/p trial of IVFs on 07/12 * creatinine better with improvement in UOP * follow trend of repeat labs and urine output (2) Septic shock: Code(s): A41.9 - Sepsis, unspecified organism; R65.21 - Severe sepsis with septic shock Status: Acute Assessment and Plan: * thought to be secondary to bilateral lower extremity cellulitis and UTI * blood culture with Pasteurella multocida * suspect her dog licked her LE wounds/areas of skin breakdown leading to infection * on antibiotic therapy * weaned off vasopressor therapy * on midodrine therapy (3) Hyponatremia: Code(s): E87.1 - Hypo-osmolality and hyponatremia Status: Acute Assessment and Plan: * likely due to 3rd spacing and previous IVF resuscitation * still suspect some element of intravascular volume depletion despite outward signs of volume overload * on salt tabs and sodium bicrabonate * follow trend of sodium (4) Bilateral lower leg cellulitis: Code(s): L03.116 - Cellulitis of left lower limb; L03.115 - Cellulitis of right lower limb Status: Acute Assessment and Plan: * see #2 * continue local wound care and therapy as outlined (5) Atrial fibrillation with RVR: Code(s): I48.91 - Unspecified atrial fibrillation Status: Acute Assessment and Plan: * known history of chronic AFib * continue rate control strategy * on anticoagulation (6) UTI (urinary tract infection): Code(s): N39.0 - Urinary tract infection, site not specified Status: Acute Assessment and Plan: * admission UA suggestive * urine culture negative (7) Congestive heart failure: Code(s): I50.9 - Heart failure, unspecified Status: Acute Assessment and Plan: * appears right sided with associated MR and TR * difficult to treat given suspected intravascular volume depletion * continue supportive therapy Will continue to follow. Subjective Date/time seen: 09/16/24 09:47 Interval history: Follow-up for acute kidney injury/acute renal failure. Chart reviewed -- assuming care from Dr. Burdick; renal function/creatinine better with slight improvement in urine output following trial of IVFs yesterday; weaned off vasopressor therapy with relative stability in hemo dynamics; reports that overall she feels better but still has significant discomfort/pain in her lower extremities particularly with dressings changes. Exam Narrative: General: large female in NAD Heart: normal S1 and S2; no rub Lungs: clear to auscultation Abdomen: obese but soft, nontender, nondistended, positive bowel sounds Extremities: extensive swelling/edema/lymphedema noted Skin: LEs with erythema, tenderness to touch, and multiple areas of skin breakdown associated with fluid; chronic venous stasis changes present Objective Data Vital Signs Vital Signs:
[2024-07-13] MEDS: AMOXICILLIN/CLAVULANATE K 875-125 MG TAB 1 TABLET PO ×3 (09:50→21:01)
[2024-07-13] MEDS: CEFEPIME 2 GM/NS 50 ML 2 GM/50 ML BAG IVPB (09:50)
[2024-07-13] MEDS: ALBUMIN HUMAN 25% 25 GM/100 ML 100 ML IVPB ×2 (11:35→17:38)
[2024-07-13] MEDS: ACETAMINOPHEN 500 MG TABLET 1000 MG PO (15:07)
--- NOTE | 2024-07-13 16:13 | PM.IMPN ---
Progress Note: A&P Assessment and Plan (1) Septic shock: Code(s): A41.9 - Sepsis, unspecified organism; R65.21 - Severe sepsis with septic shock Status: Acute Assessment and Plan: Patient presents with symptoms of bilateral lower extremity cellulitis. Patient with septic shock noted by fever, low blood pressure, tachycardia, leukocytosis, and lactic acidosis. Consider also cardiogenic shock from severe tachycardia. Doubt that she is in cardiogenic failure from the mitral valve given that her chest x-ray is not consistent with pulmonary edema. Lactic acid trended to normal. Blood pressure has improved with IV fluids and phenylephrine. This is complicated by patient being on diltiazem her AFib/RVR. Cortisol and TSH okay. Cortisol elevated but infection causing a stress response. BCx growing pasteurella multocida in both bottles. LE skin lesions do not appear to resemble purpura fulminans which is more purpuric lesions with skin necrosis. Source is probably her dog. Risk of endocarditis is extremely rare. Continue cefepime. Flagyl added. Midodrine added. Weaned off phyenlephrine WBC unchanged at 15K. Repeat BCx NGTD. Continue current wound care treatment. Continue abx. (2) Atrial fibrillation with rapid ventricular response: Code(s): I48.91 - Unspecified atrial fibrillation Status: Acute Assessment and Plan: Patient has a history of paroxysmal atrial fibrillation. Unclear if she is been in an out of AFib since her symptom is blurry vision. Echo in December 2023 showing normal LV systolic function with EF of 50-55%, mildly enlarged RV with normal RV systolic function, severe biatrial enlargement, moderate-severe MR and moderate TR. Patient is noncompliant with Xarelto and admits to stopping Xarelto for 4-5 days at a time due to bruising. Baseline hemoglobin is 11-13. Hemoglobin 11.2 on admission and stable Xarelto resumed. Started on Diltiazem IV drip but BP became soft so phenylephrine started. Heart rate became better controlled. Switched to oral diltiazem. Monitor hemoglobin. Monitor HR and BP (3) Bilateral lower leg cellulitis: Code(s): L03.116 - Cellulitis of left lower limb; L03.115 - Cellulitis of right lower limb Status: Acute Assessment and Plan: LE venous doppler showing no thrombosed vessels but exam incomplete due to her size. Possible right sided failure with moderate TR, PASP 43mmHg and mildly dilated RV size but normal RV function. Elevated RAP 8mmHg. As above. Continue antibiotics. Wound care consult. Continue wound care treatment. Continue Xarelto. Start diuresis when able (4) Hyponatremia: Code(s): E87.1 - Hypo-osmolality and hyponatremia Status: Acute Assessment and Plan: Sodium 128 on admission. Probably related to dehydration given the elevated renal function. Urine Eos negative. Urine Na <5 with FENa .02% consistent prerenal (probably from poor renal perfusion from HoTN) She has been fluid resuscitated and she is fluid positive. Sodium better at 130. Follow (5) Acute kidney injury: Code(s): N17.9 - Acute kidney failure, unspecified Status: Acute Assessment and Plan: Patient has normal baseline renal function. BUN 48 and creatinine 1.5 on admission. Probably related to ATN from sepsis/HoTN and/or prerenal from dehydration although she has been eating well, not on diuretics and denies n/v/d Renal ultrasound showing normal kidneys. Renal function better with BUN 44 and Cr 1.0. Metabolic acidosis improved with oral bicarb Nephrology consulted and appreciate their input. Follow (6) Nonrheumatic mitral valve regurgitation: Code(s): I34.0 - Nonrheumatic mitral (valve) insufficiency Status: Acute Assessment and Plan: Echocardiogram in December 2023 showing moderate-severe mitral valve regurgitation which may be an underestimation due to the eccentricity of the jet. She also has moderate TR. EF wa
[2024-07-13] MEDS: ONDANSETRON INJ 4 MG/2 ML VIAL IV PUSH (17:37)
[2024-07-13] MEDS: RIVAROXABAN 20 MG TABLET PO (18:42)
--- NOTE | 2024-07-13 20:47 | PCRCNOTE ---
Pt refused Apnea link.
[2024-07-14] VITALS (17 sets, daily range): BP systolic 103–112; BP diastolic 68–86; PULSE 81–100; RESP 14–20; TEMP 36.7–37.3; O2SAT 95–100
[2024-07-14] MEDS: ALBUMIN HUMAN 25% 25 GM/100 ML 100 ML IVPB ×2 (00:40→05:03)
[2024-07-14] MEDS: dilTIAZem HCL 30 MG TABLET PO ×4 (00:46→18:12)
[2024-07-14] MEDS: ACETAMINOPHEN 500 MG TABLET 1000 MG PO ×2 (04:22→20:08)
[2024-07-14] MEDS: ONDANSETRON INJ 4 MG/2 ML VIAL IV PUSH (04:34)
[2024-07-14] MEDS: CENTRAL LINE FLUSH 10 ML IV PUSH ×3 (04:34→22:15)
[2024-07-14 04:36] LABS: Hematocrit 32.9 % (37.0-47.0); Hemoglobin 10.7 g/dL (12.0-15.0); Mean Corpuscular HGB Conc 32.5 g/dl (32-36); Mean Corpuscular Hemoglobin 30.3 pg (26-34); Mean Corpuscular Volume 93.2 fl (80-100); Mean Platelet Volume 9.4 fl (7.4-10.4); Platelet Count Result 267 k/mm3 (150-375); Red Blood Count 3.53 M/mm3 (4.2-5.4); Red Cell Distribution Width 16.3 % (11.5-14.5); White Blood Count 14.6 K/mm3 (4.5-10.0)
[2024-07-14 04:49] LABS: Alanine Aminotransferase 16 U/L (6-35); Albumin Level 3.6 g/dL (3.5-5.1); Alkaline Phosphatase 118 U/L (38-126); Anion Gap 11 mmol/L (4-12); Aspartate Amino Transferase 29 U/L (14-36); Bilirubin,Total 2.4 mg/dL (0.2-1.3); Blood Urea Nitrogen 39 mg/dL (7-17); Calcium 8.5 mg/dL (8.4-10.2); Carbon Dioxide 21 mmol/L (22-30); Chloride 100 mmol/L (98-107); Estimated CRCL calculation 77 ml/min; Estimated Glomerular Filt Rate > 60; Glucose 88 mg/dL (65-110); Magnesium 2.3 mg/dL (1.6-2.3); Phosphorus 2.8 mg/dL (2.5-4.5); Potassium 4.6 mmol/L (3.4-5.0); Sodium 132 mmol/L (137-145)
[2024-07-14] MEDS: AMOXICILLIN/CLAVULANATE K 875-125 MG TAB 1 TABLET PO ×3 (05:03→22:15)
[2024-07-14] MEDS: SODIUM BICARBONATE TAB 650 MG TABLET 1300 MG PO ×2 (08:50→16:28)
[2024-07-14] MEDS: SODIUM CHLORIDE 500 MG TABLET PO (08:54)
[2024-07-14] MEDS: MIDODRINE HCL 10 MG TABLET PO ×3 (08:54→16:28)
[2024-07-14] MEDS: MULTIVITAMINS /C LUTEIN (CENTRUM SILVER) TABLET *BKC 1 TAB PO (08:54)
[2024-07-14] MEDS: ASPIRIN 81 MG CHEWABLE TABLET PO (08:54)
--- NOTE | 2024-07-14 09:36 | WPDINTPN ---
Progress Note: A&P Assessment and Plan (1) Septic shock: Code(s): A41.9 - Sepsis, unspecified organism; R65.21 - Severe sepsis with septic shock Status: Acute Assessment and Plan: Septic shock secondary to bilateral lower extremity cellulitis and UTI Blood cultures x 2 growing Pasteurella Multocida. Patient has a dog at home which often lays in her legs or clicks her legs which have skin breakdown. This is likely the cause of infection. -Do not feel any crepitus and x-rays do not suggest any subcutaneous air Patient was on Flagyl and cefepime and vancomycin which are currently off -these was switched to p.o. Augmentin as blood cultures grew pasteurella multocida -patient has been weaned off pressors -currently on midodrine with adequate blood pressures and MAP -status post albumin (2) Bilateral lower leg cellulitis: Code(s): L03.116 - Cellulitis of left lower limb; L03.115 - Cellulitis of right lower limb Status: Acute Assessment and Plan: See above Local wound care per Wound Care Team (3) Atrial fibrillation with RVR: Code(s): I48.91 - Unspecified atrial fibrillation Status: Acute Assessment and Plan: History of chronic AFib and now in RVR Currently on diltiazem 30 mg q.6 hours p.o. -remains in atrial fibrillation, rate controlled Continue Xarelto (4) Hyponatremia: Code(s): E87.1 - Hypo-osmolality and hyponatremia Status: Acute Assessment and Plan: Likely secondary to CHF Sodium bicarbonate and chloride tablet Monitor sodium -improved (5) UTI (urinary tract infection): Code(s): N39.0 - Urinary tract infection, site not specified Status: Acute Assessment and Plan: See above (6) Congestive heart failure: Code(s): I50.9 - Heart failure, unspecified Status: Acute Assessment and Plan: Patient appears to have right heart failure. Dobutamine not started due to AFib with RVR Most recent echo Summary 1. Left ventricular chamber dimension is normal. 2. Left ventricular systolic function is normal, estimated at 50-55%. 3. Right ventricular chamber dimension is mildly enlarged. 4. Right ventricular systolic function is normal. 5. Left atrial chamber dimension is severely enlarged. 6. Right atrial chamber dimension is severely enlarged. 7. There is moderate to severe mitral valve regurgitation. This may be underestimated due to the eccentricity of the jet. 8. There is moderate tricuspid valve regurgitation. (7) Morbid obesity: Code(s): E66.01 - Morbid (severe) obesity due to excess calories Status: Acute Assessment and Plan: Chronic -PT/OT following (8) Acute kidney injury: Code(s): N17.9 - Acute kidney failure, unspecified Status: Acute Assessment and Plan: Elevated creatinine likely secondary to sepsis and shock Patient received IV fluids earlier but now off Creatinine improved to 0.90 on 07/14 Monitor urine output electrolytes and creatinine She had recent renal ultrasound which showed normal kidneys with without any hydronephrosis Normal CK Nephrology following Plan DVT prophylaxis -Xarelto Nutrition -heart healthy diet Code status: Full code Critical care time spent: 33 minutes Continue PT/OT Patient currently up in chair Discussed with Dr. Salter, to transfer patient out of the ICU Due to a high probability of clinically significant, life threatening deterioration, the patient required my highest level of preparedness to intervene emergently and I personally spent this critical care time directly and personally managing the patient. This critical care time included obtaining a history; examining the patient; pulse oximetry; ordering and review of studies; arranging urgent treatment with development of a management plan; evaluation of patient's response to treatment; frequent reassessment; and discussions with other providers. It was exclusive of
--- NOTE | 2024-07-14 09:57 | P.PNNP_ITS ---
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 and tricuspid regurgitation * evaluation to date noted: * urine electrolytes prerenal * renal ultrasound unremarkable * urine eosinophils negative * CPK normal * no significant proteinuria * s/p trial of IVFs on 07/12 * creatinine better with improvement in UOP * follow trend of repeat labs and urine output (2) Septic shock: Code(s): A41.9 - Sepsis, unspecified organism; R65.21 - Severe sepsis with septic shock Status: Acute Assessment and Plan: * clinically improving * thought to be secondary to bilateral lower extremity cellulitis and UTI * blood culture with Pasteurella multocida * suspect her dog licked her LE wounds/areas of skin breakdown leading to infection * on antibiotic therapy * weaned off vasopressor therapy * on midodrine therapy (3) Hyponatremia: Code(s): E87.1 - Hypo-osmolality and hyponatremia Status: Acute Assessment and Plan: * likely due to 3rd spacing and previous IVF resuscitation * still suspect some element of intravascular volume depletion despite outward signs of volume overload * on salt tabs and sodium bicarbonate - wean off as tolerated * follow trend of sodium (4) Bilateral lower leg cellulitis: Code(s): L03.116 - Cellulitis of left lower limb; L03.115 - Cellulitis of right lower limb Status: Acute Assessment and Plan: * see #2 * continue local wound care and therapy as outlined (5) Atrial fibrillation with RVR: Code(s): I48.91 - Unspecified atrial fibrillation Status: Acute Assessment and Plan: * known history of chronic AFib * continue rate control strategy * on anticoagulation (6) UTI (urinary tract infection): Code(s): N39.0 - Urinary tract infection, site not specified Status: Acute Assessment and Plan: * admission UA suggestive * urine culture negative (7) Congestive heart failure: Code(s): I50.9 - Heart failure, unspecified Status: Acute Assessment and Plan: * appears right sided with associated MR and TR * difficult to treat given suspected intravascular volume depletion * continue supportive therapy Not much else to add at this time -- will continue to follow from a distance. Subjective Date/time seen: 07/14/24 09:57 Interval history: Follow-up for acute kidney injury/acute renal failure. Major complaint at this time is that of on/off nausea and some heartburn that she thinks is related to her dinner last night; otherwise, remains hemodynamically stable as well; renal function remains stable at this time with acceptable urine output; no other events overnight or earlier this AM. Exam Narrative: General: large female in NAD Heart: normal S1 and S2; no rub Lungs: clear to auscultation Abdomen: obese but soft, nontender, nondistended, positive bowel sounds Extremities: extensive swelling/edema/lymphedema noted in LEs Skin: LEs with erythema, tenderness to touch, and multiple areas of skin breakdown associated with fluid Objective Data Vital Signs Vital Signs:
--- NOTE | 2024-07-14 09:57 | PM.PNNEP ---
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 and tricuspid regurgitation evaluation to date noted: urine electrolytes prerenal renal ultrasound unremarkable urine eosinophils negative CPK normal no significant proteinuria s/p trial of IVFs on 07/12 creatinine better with improvement in UOP follow trend of repeat labs and urine output (2) Septic shock: Code(s): A41.9 - Sepsis, unspecified organism; R65.21 - Severe sepsis with septic shock Status: Acute Assessment and Plan: clinically improving thought to be secondary to bilateral lower extremity cellulitis and UTI blood culture with Pasteurella multocida suspect her dog licked her LE wounds/areas of skin breakdown leading to infection on antibiotic therapy weaned off vasopressor therapy on midodrine therapy (3) Hyponatremia: Code(s): E87.1 - Hypo-osmolality and hyponatremia Status: Acute Assessment and Plan: likely due to 3rd spacing and previous IVF resuscitation still suspect some element of intravascular volume depletion despite outward signs of volume overload on salt tabs and sodium bicarbonate - wean off as tolerated follow trend of sodium (4) Bilateral lower leg cellulitis: Code(s): L03.116 - Cellulitis of left lower limb; L03.115 - Cellulitis of right lower limb Status: Acute Assessment and Plan: see #2 continue local wound care and therapy as outlined (5) Atrial fibrillation with RVR: Code(s): I48.91 - Unspecified atrial fibrillation Status: Acute Assessment and Plan: known history of chronic AFib continue rate control strategy on anticoagulation (6) UTI (urinary tract infection): Code(s): N39.0 - Urinary tract infection, site not specified Status: Acute Assessment and Plan: admission UA suggestive urine culture negative (7) Congestive heart failure: Code(s): I50.9 - Heart failure, unspecified Status: Acute Assessment and Plan: appears right sided with associated MR and TR difficult to treat given suspected intravascular volume depletion continue supportive therapy Not much else to add at this time -- will continue to follow from a distance. Subjective Date/time seen: 07/14/24 09:57 Interval history: Follow-up for acute kidney injury/acute renal failure. Major complaint at this time is that of on/off nausea and some heartburn that she thinks is related to her dinner last night; otherwise, remains hemodynamically stable as well; renal function remains stable at this time with acceptable urine output; no other events overnight or earlier this AM. Exam Narrative: General: large female in NAD Heart: normal S1 and S2; no rub Lungs: clear to auscultation Abdomen: obese but soft, nontender, nondistended, positive bowel sounds Extremities: extensive swelling/edema/lymphedema noted in LEs Skin: LEs with erythema, tenderness to touch, and multiple areas of skin breakdown associated with fluid Objective Data Vital Signs Vital Signs: Vital Signs Temp Pulse Resp BP Pulse Ox O2 Del Method 07/14/24 08:00 98.4 F 98 16 103/86 96 07/14/24 07:36 99 18 96 Room Air 07/14/24 07:35 99 07/14/24 06:00 96 112/79 07/14/24 06:00 96 07/14/24 06:00 98.6 F 96 18 112/79 96 07/14/24 04:00 Room Air 07/14/24 04:00 98.7 F 91 17 104/78 96 07/14/24 02:00 98.8 F 95 20 109/77 97 07/14/24 04:00 91 104/78 07/14/24 04:00 91 07/14/24 02:00 100 07/14/24 02:00 100 109/77 07/14/24 00:00 98.9 F 89 19 103/78 95 07/14/24 00:00
--- NOTE | 2024-07-14 11:31 | PC.NURSE ---
pt assisted to be with coaching by OT. Pt able to stand assist x 1 able to side step to bed with walker. Assist x 2 for positioning in bed. Pt tearful but staff reinforced positive effort by pt and need to keep mobility. Pt verb understanding.
--- NOTE | 2024-07-14 13:26 | PCPTNOTE ---
Attempted to see patient for PT, however patient declined due to wanting to rest at this time.
--- NOTE | 2024-07-14 13:54 | PM.IMPN ---
Progress Note: A&P Assessment and Plan (1) Septic shock: Code(s): A41.9 - Sepsis, unspecified organism; R65.21 - Severe sepsis with septic shock Status: Acute Assessment and Plan: Patient presents with symptoms of bilateral lower extremity cellulitis. Patient with septic shock noted by fever, low blood pressure, tachycardia, leukocytosis, and lactic acidosis. Consider also cardiogenic shock from severe tachycardia. Doubt that she is in cardiogenic failure from the mitral valve given that her chest x-ray is not consistent with pulmonary edema. Lactic acid trended to normal. Blood pressure has improved with IV fluids and phenylephrine. This is complicated by patient being on diltiazem her AFib/RVR. Cortisol and TSH okay. Cortisol elevated but infection causing a stress response. BCx growing pasteurella multocida in both bottles. LE skin lesions do not appear to resemble purpura fulminans which is more purpuric lesions with skin necrosis. Source is probably her dog. Risk of endocarditis is extremely rare. treated with cefepime and Flagyl. Midodrine added. Weaned off phyenlephrine WBC unchanged at 15K. Repeat BCx NGTD. Changed to Augmentin. Add Doxycycline. Continue current wound care treatment. Continue abx. (2) Atrial fibrillation with rapid ventricular response: Code(s): I48.91 - Unspecified atrial fibrillation Status: Acute Assessment and Plan: Patient has a history of paroxysmal atrial fibrillation. Unclear if she is been in an out of AFib since her symptom is blurry vision. Echo in December 2023 showing normal LV systolic function with EF of 50-55%, mildly enlarged RV with normal RV systolic function, severe biatrial enlargement, moderate-severe MR and moderate TR. Patient is noncompliant with Xarelto and admits to stopping Xarelto for 4-5 days at a time due to bruising. Baseline hemoglobin is 11-13. Hemoglobin 11.2 on admission and stable Xarelto resumed. Started on Diltiazem IV drip but BP became soft so phenylephrine started. Heart rate became better controlled. Switched to oral diltiazem and tolerating this well. Monitor hemoglobin. Monitor HR and BP (3) Bilateral lower leg cellulitis: Code(s): L03.116 - Cellulitis of left lower limb; L03.115 - Cellulitis of right lower limb Status: Acute Assessment and Plan: LE venous doppler showing no thrombosed vessels but exam incomplete due to her size. Wound care consulted. Possible right sided failure with moderate TR, PASP 43mmHg and mildly dilated RV size but normal RV function. Elevated RAP 8mmHg. As above. Continue antibiotics. Continue wound care treatment. Continue Xarelto. Start diuresis when able (4) Hyponatremia: Code(s): E87.1 - Hypo-osmolality and hyponatremia Status: Acute Assessment and Plan: Sodium 128 on admission. Probably related to dehydration given the elevated renal function. Urine Eos negative. Urine Na <5 with FENa .02% consistent prerenal (probably from poor renal perfusion from HoTN) She has been fluid resuscitated and she is fluid positive. Sodium better at 132. Follow (5) Acute kidney injury: Code(s): N17.9 - Acute kidney failure, unspecified Status: Acute Assessment and Plan: Patient has normal baseline renal function. BUN 48 and creatinine 1.5 on admission. Probably related to ATN from sepsis/HoTN and/or prerenal from dehydration although she has been eating well, not on diuretics and denies n/v/d Renal ultrasound showing normal kidneys. Renal function better with BUN 39 and Cr 0.9. Metabolic acidosis improved with oral bicarb Nephrology consulted and appreciate their input. Follow (6) Nonrheumatic mitral valve regurgitation: Code(s): I34.0 - Nonrheumatic mitral (valve) insufficiency Status: Acute Assessment and Plan: Echocardiogram in December 2023 showing moderate-severe mitral valve regurgitation which may be an underestimatio
[2024-07-14] MEDS: RIVAROXABAN 20 MG TABLET PO (16:28)
[2024-07-14] MEDS: DOXYCYCLINE HYCLATE 100 MG TABLET PO (20:10)
[2024-07-15] VITALS (11 sets, daily range): BP systolic 97–130; BP diastolic 68–71; PULSE 68–103; RESP 18–20; TEMP 36.1–36.8; O2SAT 96–99
[2024-07-15] MEDS: dilTIAZem HCL 30 MG TABLET PO ×5 (00:20→23:41)
[2024-07-15] MEDS: ACETAMINOPHEN 500 MG TABLET 1000 MG PO ×2 (04:38→17:39)
[2024-07-15 05:36] LABS: Basophils Absolute Auto 0.1 K/mm3 (0.0-0.1); Basophils Percent Auto 0.9 % (0.2-1.2); Eosinophils Absolute Auto 0.2 K/mm3 (0-0.3); Eosinophils Percent Auto 1.6 % (0-4.4); Hematocrit 33.5 % (37.0-47.0); Hemoglobin 10.7 g/dL (12.0-15.0); Immature Granulocyte Absolute 1.35 K/mm3 (0.00-0.031); Immature Granulocyte Percent A 9.3 % (0-0.5); Lymphocytes Absolute Auto 1.39 K/mm3 (0.9-3.2); Lymphocytes Percent Auto 9.6 % (18.3-44.2); Mean Corpuscular HGB Conc 31.9 g/dl (32-36); Mean Corpuscular Hemoglobin 29.8 pg (26-34); Mean Corpuscular Volume 93.3 fl (80-100); Mean Platelet Volume 9.2 fl (7.4-10.4); Neutrophils Absolute Auto 10.3 K/mm3 (1.3-6.7); Neutrophils Percent Auto 71.6 % (45.5-73.1); Nucleated Red Blood Cells Perc 0.2 % (0.0-0.2); Platelet Count Result 302 k/mm3 (150-375); Red Blood Count 3.59 M/mm3 (4.2-5.4); Red Cell Distribution Width 16.2 % (11.5-14.5); White Blood Count 14.4 K/mm3 (4.5-10.0)
[2024-07-15 05:46] LABS: Alanine Aminotransferase 14 U/L (6-35); Albumin Level 3.1 g/dL (3.5-5.1); Alkaline Phosphatase 116 U/L (38-126); Anion Gap 8 mmol/L (4-12); Aspartate Amino Transferase 30 U/L (14-36); Bilirubin,Total 2.1 mg/dL (0.2-1.3); Blood Urea Nitrogen 34 mg/dL (7-17); Calcium 8.5 mg/dL (8.4-10.2); Carbon Dioxide 22 mmol/L (22-30); Chloride 101 mmol/L (98-107); Estimated CRCL calculation 86 ml/min; Estimated Glomerular Filt Rate > 60; Glucose 85 mg/dL (65-110); Magnesium 2.3 mg/dL (1.6-2.3); Phosphorus 2.7 mg/dL (2.5-4.5); Potassium 4.7 mmol/L (3.4-5.0); Sodium 131 mmol/L (137-145)
[2024-07-15] MEDS: AMOXICILLIN/CLAVULANATE K 875-125 MG TAB 1 TABLET PO ×3 (06:02→20:21)
[2024-07-15] MEDS: CENTRAL LINE FLUSH 10 ML IV PUSH ×3 (06:02→20:21)
[2024-07-15] MEDS: MIDODRINE HCL 10 MG TABLET PO ×3 (08:07→17:36)
[2024-07-15] MEDS: SODIUM CHLORIDE 500 MG TABLET PO (08:07)
[2024-07-15] MEDS: ASPIRIN 81 MG CHEWABLE TABLET PO (08:07)
[2024-07-15] MEDS: SODIUM BICARBONATE TAB 650 MG TABLET 1300 MG PO ×2 (08:07→17:36)
[2024-07-15] MEDS: MULTIVITAMINS /C LUTEIN (CENTRUM SILVER) TABLET *BKC 1 TAB PO (08:07)
[2024-07-15] MEDS: DOXYCYCLINE HYCLATE 100 MG TABLET PO ×2 (08:07→20:20)
[2024-07-15] MEDS: polyethylene glycoL 3350 17 GM POWD.PACK PO (08:09)
[2024-07-15] MEDS: ALTEPLASE 2 MG VIAL (CATHFLO) IV PUSH ×2 (12:14→14:20)
[2024-07-15] MEDS: RIVAROXABAN 20 MG TABLET PO (17:36)
--- NOTE | 2024-07-15 17:42 | PC.NURSE ---
This patient, Pili Forrester, was transferred to [250 ] on 07/15/24 at 1742. Personal belongings sent with patient. Report given to [GAMALIEL Todd @ [phone] ]. Appropriate documentation sent with patient.
--- NOTE | 2024-07-15 18:03 | PC.NURSE ---
Patient transferred to room 246 from IMU room 211. Oriented to new room, placed on tele, and shown call light.
--- NOTE | 2024-07-15 18:49 | PM.IMPN ---
Progress Note: A&P Assessment and Plan (1) Septic shock: Code(s): A41.9 - Sepsis, unspecified organism; R65.21 - Severe sepsis with septic shock Status: Acute Assessment and Plan: Patient presents with symptoms of bilateral lower extremity cellulitis. Patient with septic shock noted by fever, low blood pressure, tachycardia, leukocytosis, and lactic acidosis. Consider also cardiogenic shock from severe tachycardia. Doubt that she is in cardiogenic failure from the mitral valve given that her chest x-ray is not consistent with pulmonary edema. Lactic acid trended to normal. Blood pressure has improved with IV fluids and phenylephrine. This is complicated by patient being on diltiazem her AFib/RVR. Cortisol and TSH okay. Cortisol elevated but infection causing a stress response. BCx growing pasteurella multocida in both bottles. LE skin lesions do not appear to resemble purpura fulminans which is more purpuric lesions with skin necrosis. Source is probably her dog. Risk of endocarditis is extremely rare. treated with cefepime and Flagyl. Midodrine added. Weaned off phyenlephrine WBC unchanged at around 15K. Repeat BCx NGTD. Changed to Augmentin. Added Doxycycline. Continue current wound care treatment. Continue abx. (2) Atrial fibrillation with rapid ventricular response: Code(s): I48.91 - Unspecified atrial fibrillation Status: Acute Assessment and Plan: Patient has a history of paroxysmal atrial fibrillation. Unclear if she is been in an out of AFib since her symptom is blurry vision. Echo in December 2023 showing normal LV systolic function with EF of 50-55%, mildly enlarged RV with normal RV systolic function, severe biatrial enlargement, moderate-severe MR and moderate TR. Patient is noncompliant with Xarelto and admits to stopping Xarelto for 4-5 days at a time due to bruising. Baseline hemoglobin is 11-13. Hemoglobin 11.2 on admission and stable Xarelto resumed. Started on Diltiazem IV drip but BP became soft so phenylephrine started. Heart rate became better controlled. Switched to oral diltiazem and tolerating this well. Monitor hemoglobin. Monitor HR and BP (3) Bilateral lower leg cellulitis: Code(s): L03.116 - Cellulitis of left lower limb; L03.115 - Cellulitis of right lower limb Status: Acute Assessment and Plan: LE venous doppler showing no thrombosed vessels but exam incomplete due to her size. Wound care consulted. Possible right sided failure with moderate TR, PASP 43mmHg and mildly dilated RV size but normal RV function. Elevated RAP 8mmHg. As above. Continue antibiotics. Continue wound care treatment. Continue Xarelto. Start diuresis when able after BP is under control (4) Hyponatremia: Code(s): E87.1 - Hypo-osmolality and hyponatremia Status: Acute Assessment and Plan: Sodium 128 on admission. Probably related to dehydration given the elevated renal function. Urine Eos negative. Urine Na <5 with FENa .02% consistent prerenal (probably from poor renal perfusion from HoTN) She has been fluid resuscitated and she is fluid positive. Sodium better at 131. Follow (5) Acute kidney injury: Code(s): N17.9 - Acute kidney failure, unspecified Status: Acute Assessment and Plan: Patient has normal baseline renal function. BUN 48 and creatinine 1.5 on admission. Probably related to ATN from sepsis/HoTN and/or prerenal from dehydration although she has been eating well, not on diuretics and denies n/v/d Renal ultrasound showing normal kidneys. Renal function better with BUN 39 and Cr 0.9. Metabolic acidosis improved with oral bicarb Nephrology consulted and appreciate their input. Follow (6) Nonrheumatic mitral valve regurgitation: Code(s): I34.0 - Nonrheumatic mitral (valve) insufficiency Status: Acute Assessment and Plan: Echocardiogram in December 2023 showing moderate-severe mitral valve regurgita
[2024-07-16] VITALS (10 sets, daily range): BP systolic 103–106; BP diastolic 59–71; PULSE 83–110; RESP 18–20; TEMP 36.7–36.8; O2SAT 95–97
[2024-07-16] MEDS: dilTIAZem HCL 30 MG TABLET PO ×4 (05:33→23:28)
[2024-07-16] MEDS: CENTRAL LINE FLUSH 10 ML IV PUSH ×3 (05:34→21:48)
[2024-07-16] MEDS: AMOXICILLIN/CLAVULANATE K 875-125 MG TAB 1 TABLET PO ×3 (05:34→21:47)
[2024-07-16] MEDS: CENTRAL LINE FLUSH 20 ML IV PUSH (05:34)
[2024-07-16 05:41] LABS: Basophils Absolute Auto 0.1 K/mm3 (0.0-0.1); Basophils Percent Auto 0.4 % (0.2-1.2); Eosinophils Absolute Auto 0.3 K/mm3 (0-0.3); Eosinophils Percent Auto 1.7 % (0-4.4); Hematocrit 31.4 % (37.0-47.0); Hemoglobin 10.3 g/dL (12.0-15.0); Immature Granulocyte Absolute 1.73 K/mm3 (0.00-0.031); Immature Granulocyte Percent A 10.2 % (0-0.5); Lymphocytes Absolute Auto 1.44 K/mm3 (0.9-3.2); Lymphocytes Percent Auto 8.5 % (18.3-44.2); Mean Corpuscular HGB Conc 32.8 g/dl (32-36); Mean Corpuscular Hemoglobin 30.6 pg (26-34); Mean Corpuscular Volume 93.2 fl (80-100); Mean Platelet Volume 8.9 fl (7.4-10.4); Monocytes Percent Auto 5.9 % (2.6-8.5); Neutrophils Absolute Auto 12.4 K/mm3 (1.3-6.7); Neutrophils Percent Auto 73.3 % (45.5-73.1); Platelet Count Result 321 k/mm3 (150-375); Red Blood Count 3.37 M/mm3 (4.2-5.4); Red Cell Distribution Width 16.3 % (11.5-14.5); White Blood Count 16.9 K/mm3 (4.5-10.0)
[2024-07-16 06:01] LABS: Anion Gap 6 mmol/L (4-12); Blood Urea Nitrogen 31 mg/dL (7-17); Calcium 8.4 mg/dL (8.4-10.2); Carbon Dioxide 24 mmol/L (22-30); Chloride 100 mmol/L (98-107); Estimated CRCL calculation 83 ml/min; Estimated Glomerular Filt Rate > 60; Glucose 83 mg/dL (65-110); Potassium 4.6 mmol/L (3.4-5.0); Sodium 130 mmol/L (137-145)
[2024-07-16 06:27] LABS: Anisocytosis 1+; Hypochromasia 1+; Platelet Estimate Adequate (Adequate); Schistocytes None Seen
[2024-07-16] MEDS: ASPIRIN 81 MG CHEWABLE TABLET PO (09:21)
[2024-07-16] MEDS: MULTIVITAMINS /C LUTEIN (CENTRUM SILVER) TABLET *BKC 1 TAB PO (09:21)
[2024-07-16] MEDS: MIDODRINE HCL 10 MG TABLET PO ×3 (09:21→17:32)
[2024-07-16] MEDS: SODIUM CHLORIDE 500 MG TABLET PO (09:21)
[2024-07-16] MEDS: SODIUM BICARBONATE TAB 650 MG TABLET 1300 MG PO ×2 (09:21→17:32)
[2024-07-16] MEDS: DOXYCYCLINE HYCLATE 100 MG TABLET PO ×2 (09:24→21:47)
[2024-07-16 09:56] LABS: Bilirubin,Total 2.1 mg/dL (0.2-1.3)
[2024-07-16] MEDS: FUROSEMIDE INJ 40 MG/4 ML VIAL IV PUSH (11:36)
--- NOTE | 2024-07-16 14:59 | PM.IMPN ---
Progress Note: A&P Assessment and Plan (1) Septic shock: Code(s): A41.9 - Sepsis, unspecified organism; R65.21 - Severe sepsis with septic shock Status: Acute Assessment and Plan: Patient presents with symptoms of bilateral lower extremity cellulitis. Patient with septic shock noted by fever, low blood pressure, tachycardia, leukocytosis, and lactic acidosis. Consider also cardiogenic shock from severe tachycardia. Doubt that she is in cardiogenic failure from the mitral valve given that her chest x-ray is not consistent with pulmonary edema. Lactic acid trended to normal. Blood pressure has improved with IV fluids and phenylephrine. This is complicated by patient being on diltiazem her AFib/RVR. Cortisol and TSH okay. Cortisol elevated but infection causing a stress response. BCx from 07/09/2024 growing pasteurella multocida in both bottles. LE skin lesions do not appear to resemble purpura fulminans which is more purpuric lesions with skin necrosis. Source is probably her dog licking her leg wounds. Risk of endocarditis is extremely rare. Repeat blood cultures 07/12/2024 are negative so far Patient initially treated with the IV cefepime and Flagyl, now switched to oral Augmentin and doxycycline Midodrine added. Weaned off phyenlephrine WBC count remains between 14 and 17 Continue with antibiotics in the form of Augmentin and doxycycline Continue current wound care treatment (2) Atrial fibrillation with rapid ventricular response: Code(s): I48.91 - Unspecified atrial fibrillation Status: Acute Assessment and Plan: Patient has a history of paroxysmal atrial fibrillation. Unclear if she is been in an out of AFib since her symptom is blurry vision. Echo in December 2023 showing normal LV systolic function with EF of 50-55%, mildly enlarged RV with normal RV systolic function, severe biatrial enlargement, moderate-severe MR and moderate TR. Patient is noncompliant with Xarelto and admits to stopping Xarelto for 4-5 days at a time due to bruising. Baseline hemoglobin is 11-13. Hemoglobin 11.2 on admission and stable Xarelto resumed. Started on Diltiazem IV drip but BP became soft so phenylephrine started. Heart rate became better controlled. Switched to oral diltiazem and tolerating this well. Consider switching to oral Cardizem CD/SR upon discharge Monitor hemoglobin. Monitor HR and BP (3) Bilateral lower leg cellulitis: Code(s): L03.116 - Cellulitis of left lower limb; L03.115 - Cellulitis of right lower limb Status: Acute Assessment and Plan: LE venous doppler showing no thrombosed vessels but exam incomplete due to her size. Wound care consulted. Possible right sided failure with moderate TR, PASP 43mmHg and mildly dilated RV size but normal RV function. Elevated RAP 8mmHg. As above. Continue antibiotics. Continue wound care treatment. Continue Xarelto. 07/16/2024: Patient given Lasix 40 mg IV x1 dose Start patient on Lasix 20 mg IV b.i.d. from tomorrow, increase dose as tolerated to 40 mg IV b.i.d. if blood pressure remains stable Strict input and output monitoring (4) Hyponatremia: Code(s): E87.1 - Hypo-osmolality and hyponatremia Status: Acute Assessment and Plan: Sodium 128 on admission. Probably related to dehydration given the elevated renal function. Urine Eos negative. Urine Na <5 with FENa .02% consistent prerenal (probably from poor renal perfusion from HoTN) She has been fluid resuscitated and she is fluid positive. Sodium better at 130 Follow-up closely with Nephrology Consider adding oral sodium chloride pills for few days (5) Acute kidney injury: Code(s): N17.9 - Acute kidney failure, unspecified Status: Acute Assessment and Plan: Patient has normal baseline renal function. BUN 48 and creatinine 1.5 on admission. Probably related to ATN from sepsis/HoTN and/or prerenal from dehydration although she has been eating
[2024-07-16] MEDS: RIVAROXABAN 20 MG TABLET PO (17:32)
[2024-07-16] MEDS: FUROSEMIDE INJ 40 MG/4 ML VIAL 20 MG IV PUSH (18:55)
[2024-07-17] VITALS (9 sets, daily range): BP systolic 95–108; BP diastolic 62–69; PULSE 87–99; RESP 12–20; TEMP 36.1–36.7; O2SAT 99–100
[2024-07-17 05:40] LABS: Basophils Absolute Auto 0.1 K/mm3 (0.0-0.1); Basophils Percent Auto 0.5 % (0.2-1.2); Eosinophils Absolute Auto 0.3 K/mm3 (0-0.3); Eosinophils Percent Auto 1.6 % (0-4.4); Hematocrit 30.6 % (37.0-47.0); Hemoglobin 9.9 g/dL (12.0-15.0); Immature Granulocyte Percent A 8.7 % (0-0.5); Lymphocytes Absolute Auto 1.36 K/mm3 (0.9-3.2); Lymphocytes Percent Auto 7.9 % (18.3-44.2); Mean Corpuscular HGB Conc 32.4 g/dl (32-36); Mean Corpuscular Hemoglobin 30.2 pg (26-34); Mean Corpuscular Volume 93.3 fl (80-100); Monocytes Absolute Auto 1.2 K/mm3 (0.1-0.6); Monocytes Percent Auto 7.1 % (2.6-8.5); Neutrophils Absolute Auto 12.8 K/mm3 (1.3-6.7); Neutrophils Percent Auto 74.2 % (45.5-73.1); Platelet Count Result 331 k/mm3 (150-375); Red Blood Count 3.28 M/mm3 (4.2-5.4); Red Cell Distribution Width 16.2 % (11.5-14.5); White Blood Count 17.3 K/mm3 (4.5-10.0)
[2024-07-17] MEDS: AMOXICILLIN/CLAVULANATE K 875-125 MG TAB 1 TABLET PO ×3 (05:53→20:21)
[2024-07-17] MEDS: dilTIAZem HCL 30 MG TABLET PO ×3 (05:53→17:59)
[2024-07-17] MEDS: CENTRAL LINE FLUSH 10 ML IV PUSH ×3 (05:54→22:19)
[2024-07-17] MEDS: CENTRAL LINE FLUSH 20 ML IV PUSH (05:54)
--- NOTE | 2024-07-17 09:34 | P.PNIM_ITS ---
Progress Note: A&P Assessment and Plan (1) Septic shock: Code(s): A41.9 - Sepsis, unspecified organism; R65.21 - Severe sepsis with septic shock Status: Acute Assessment and Plan: Patient presents with symptoms of bilateral lower extremity cellulitis. Patient with septic shock noted by fever, low blood pressure, tachycardia, leukocytosis, and lactic acidosis. Consider also cardiogenic shock from severe tachycardia. Doubt that she is in cardiogenic failure from the mitral valve given that her chest x-ray is not consistent with pulmonary edema. Lactic acid trended to normal. Blood pressure has improved with IV fluids and phenylephrine. This is complicated by patient being on diltiazem her AFib/RVR. Cortisol and TSH okay. Cortisol elevated but infection causing a stress response. BCx from 07/09/2024 growing pasteurella multocida in both bottles. LE skin lesions do not appear to resemble purpura fulminans which is more purpuric lesions with skin necrosis. Source is probably her dog licking her leg wounds. Risk of endocarditis is extremely rare. Repeat blood cultures 07/12/2024 are negative so far Patient initially treated with the IV cefepime and Flagyl, now switched to oral Augmentin and doxycycline Midodrine added. Weaned off phyenlephrine WBC count remains between 14 and 17 Continue with antibiotics in the form of Augmentin and doxycycline Continue current wound care treatment (2) Atrial fibrillation with rapid ventricular response: Code(s): I48.91 - Unspecified atrial fibrillation Status: Acute Assessment and Plan: Patient has a history of paroxysmal atrial fibrillation. Unclear if she is been in and out of AFib since her symptom is blurry vision. Echo in December 2023 showing normal LV systolic function with EF of 50-55%, mildly enlarged RV with normal RV systolic function, severe biatrial enlargement, moderate-severe MR and moderate TR. Patient is noncompliant with Xarelto and admits to stopping Xarelto for 4-5 days at a time due to bruising. Baseline hemoglobin is 11-13. Hemoglobin 11.2 on admission and stable Xarelto resumed. Started on Diltiazem IV drip but BP became soft so phenylephrine started. Heart rate became better controlled. Switched to oral diltiazem and tolerating this well. Consider switching to oral Cardizem CD/SR upon discharge Monitor hemoglobin. Monitor HR and BP (3) Bilateral lower leg cellulitis: Code(s): L03.116 - Cellulitis of left lower limb; L03.115 - Cellulitis of right lower limb Status: Acute Assessment and Plan: LE venous doppler showing no thrombosed vessels but exam incomplete due to her size. Wound care consulted. Possible right sided failure with moderate TR, PASP 43mmHg and mildly dilated RV size but normal RV function. Elevated RAP 8mmHg. As above. Continue antibiotics. Continue wound care treatment. Continue Xarelto. 07/16/2024: Patient given Lasix 40 mg IV x1 dose And started on Lasix 20 mg IV b.i.d. as tolerated (4) Hyponatremia: Code(s): E87.1 - Hypo-osmolality and hyponatremia Status: Acute Assessment and Plan: Sodium 128 on admission. Probably related to dehydration given the elevated renal function. Urine Eos negative. Urine Na <5 with FENa .02% consistent prerenal (probably from poor renal perfusion from HoTN) She has been fluid resuscitated and she is fluid positive. Sodium better at 130 Follow-up closely with Nephrology Consider adding oral sodium chloride pills for few days (5) Acute kidney injury: Code(s): N17.9 - Acute kidney failure, unspecified Status: Acute
[2024-07-17] MEDS: MIDODRINE HCL 10 MG TABLET PO ×3 (09:47→18:00)
[2024-07-17] MEDS: FUROSEMIDE INJ 40 MG/4 ML VIAL 20 MG IV PUSH ×2 (09:47→18:00)
[2024-07-17] MEDS: ASPIRIN 81 MG CHEWABLE TABLET PO (09:47)
[2024-07-17] MEDS: DOXYCYCLINE HYCLATE 100 MG TABLET PO ×2 (09:47→20:16)
[2024-07-17] MEDS: MULTIVITAMINS /C LUTEIN (CENTRUM SILVER) TABLET *BKC 1 TAB PO (09:48)
[2024-07-17] MEDS: SODIUM CHLORIDE 500 MG TABLET PO (09:48)
[2024-07-17] MEDS: polyethylene glycoL 3350 17 GM POWD.PACK PO (09:48)
[2024-07-17] MEDS: SODIUM BICARBONATE TAB 650 MG TABLET 1300 MG PO ×2 (09:49→17:59)
[2024-07-17] MEDS: ACETAMINOPHEN 500 MG TABLET 1000 MG PO (09:49)
[2024-07-17 10:17] LABS: Alanine Aminotransferase 15 U/L (6-35); Alkaline Phosphatase 111 U/L (38-126); Anion Gap 8 mmol/L (4-12); Aspartate Amino Transferase 39 U/L (14-36); Bilirubin,Total 1.9 mg/dL (0.2-1.3); Blood Urea Nitrogen 29 mg/dL (7-17); Calcium 8.2 mg/dL (8.4-10.2); Carbon Dioxide 26 mmol/L (22-30); Chloride 99 mmol/L (98-107); Estimated CRCL calculation 93 ml/min; Estimated Glomerular Filt Rate > 60; Glucose 107 mg/dL (65-110); Potassium 3.4 mmol/L (3.4-5.0); Sodium 133 mmol/L (137-145)
--- NOTE | 2024-07-17 10:33 | P.CDI_ITS ---
CDI Query Clarification Request CHF has been documented in progress notes. Please specify type and acuity of heart failure if known. Treatment: IV lasix BID * Acute * Chronic * Acute on Chronic * Unknown * Systolic * Diastolic * Combined Systolic and Diastolic * Unknown <Scarlett Fierro RN - Last Filed: 07/17/24 10:38> Provider Comments Acute on Chronic Diastolic <Daniel Valdivia MD - Last Filed: 07/18/24 18:30>
--- NOTE | 2024-07-17 10:33 | WPDCDIQUERY2 ---
CDI Query Clarification Request CHF has been documented in progress notes. Please specify type and acuity of heart failure if known. Treatment: IV lasix BID Acute Chronic Acute on Chronic Unknown Systolic Diastolic Combined Systolic and Diastolic Unknown <Scarlett Fierro RN - Last Filed: 07/17/24 10:38> Provider Comments Acute on Chronic Diastolic <Daniel Valdivia MD - Last Filed: 07/18/24 18:30>
--- NOTE | 2024-07-17 10:35 | PCNWS ---
Weekly nutritional screen. Patient is tolerating current diet with adequate intake. No weight loss reported. No nutritional needs at this time.
--- NOTE | 2024-07-17 10:59 | PCPTNOTE ---
Patient refused treatment this session due to pain and increase edema. Educated patient on the benefits of therapy and increasing movement, patient continued to refuse. RN aware.
[2024-07-17] MEDS: RIVAROXABAN 20 MG TABLET PO (18:00)
[2024-07-18] VITALS (10 sets, daily range): BP systolic 93–111; BP diastolic 57–69; PULSE 81–98; RESP 16–20; TEMP 36.1–36.4; O2SAT 96–100
[2024-07-18] MEDS: dilTIAZem HCL 30 MG TABLET PO ×4 (00:10→17:25)
[2024-07-18] MEDS: AMOXICILLIN/CLAVULANATE K 875-125 MG TAB 1 TABLET PO ×3 (05:58→21:33)
[2024-07-18] MEDS: CENTRAL LINE FLUSH 10 ML IV PUSH ×3 (06:00→21:34)
[2024-07-18 06:27] LABS: Basophils Absolute Auto 0.1 K/mm3 (0.0-0.1); Basophils Percent Auto 0.6 % (0.2-1.2); Eosinophils Absolute Auto 0.3 K/mm3 (0-0.3); Eosinophils Percent Auto 1.6 % (0-4.4); Hematocrit 31.6 % (37.0-47.0); Hemoglobin 10.1 g/dL (12.0-15.0); Immature Granulocyte Absolute 1.01 K/mm3 (0.00-0.031); Lymphocytes Percent Auto 8.3 % (18.3-44.2); Mean Corpuscular Hemoglobin 29.9 pg (26-34); Mean Corpuscular Volume 93.5 fl (80-100); Mean Platelet Volume 9.2 fl (7.4-10.4); Monocytes Absolute Auto 1.2 K/mm3 (0.1-0.6); Monocytes Percent Auto 7.2 % (2.6-8.5); Neutrophils Absolute Auto 12.8 K/mm3 (1.3-6.7); Neutrophils Percent Auto 76.3 % (45.5-73.1); Platelet Count Result 355 k/mm3 (150-375); Red Blood Count 3.38 M/mm3 (4.2-5.4); Red Cell Distribution Width 16.3 % (11.5-14.5); White Blood Count 16.8 K/mm3 (4.5-10.0)
[2024-07-18 06:41] LABS: Alanine Aminotransferase 14 U/L (6-35); Alkaline Phosphatase 116 U/L (38-126); Anion Gap 8 mmol/L (4-12); Aspartate Amino Transferase 32 U/L (14-36); Bilirubin,Total 1.7 mg/dL (0.2-1.3); Blood Urea Nitrogen 30 mg/dL (7-17); Calcium 8.2 mg/dL (8.4-10.2); Carbon Dioxide 27 mmol/L (22-30); Chloride 98 mmol/L (98-107); Estimated CRCL calculation 107 ml/min; Estimated Glomerular Filt Rate > 60; Glucose 95 mg/dL (65-110); Magnesium 1.7 mg/dL (1.6-2.3); Potassium 3.5 mmol/L (3.4-5.0); Sodium 133 mmol/L (137-145)
[2024-07-18 07:19] LABS: Platelet Estimate Adequate (Adequate)
[2024-07-18 07:20] LABS: Anisocytosis 1+; Hypochromasia 1+; Schistocytes None Seen
[2024-07-18] MEDS: SODIUM BICARBONATE TAB 650 MG TABLET 1300 MG PO (10:05)
[2024-07-18] MEDS: DOXYCYCLINE HYCLATE 100 MG TABLET PO ×2 (10:06→21:34)
[2024-07-18] MEDS: ASPIRIN 81 MG CHEWABLE TABLET PO (10:06)
[2024-07-18] MEDS: SODIUM CHLORIDE 500 MG TABLET PO (10:06)
[2024-07-18] MEDS: FUROSEMIDE INJ 40 MG/4 ML VIAL 20 MG IV PUSH (10:07)
[2024-07-18] MEDS: polyethylene glycoL 3350 17 GM POWD.PACK PO (10:07)
[2024-07-18] MEDS: MULTIVITAMINS /C LUTEIN (CENTRUM SILVER) TABLET *BKC 1 TAB PO (10:07)
[2024-07-18] MEDS: MIDODRINE HCL 10 MG TABLET PO ×3 (10:07→17:25)
--- NOTE | 2024-07-18 13:51 | PM.IMPN ---
Progress Note: A&P Assessment and Plan (1) Septic shock: Code(s): A41.9 - Sepsis, unspecified organism; R65.21 - Severe sepsis with septic shock Status: Acute Assessment and Plan: Patient presents with symptoms of bilateral lower extremity cellulitis. Patient with septic shock noted by fever, low blood pressure, tachycardia, leukocytosis, and lactic acidosis. Consider also cardiogenic shock from severe tachycardia. Doubt that she is in cardiogenic failure from the mitral valve given that her chest x-ray is not consistent with pulmonary edema. Lactic acid trended to normal. Blood pressure has improved with IV fluids and phenylephrine. This is complicated by patient being on diltiazem her AFib/RVR. Cortisol and TSH okay. Cortisol elevated but infection causing a stress response. BCx from 07/09/2024 growing pasteurella multocida in both bottles. LE skin lesions do not appear to resemble purpura fulminans which is more purpuric lesions with skin necrosis. Source is probably her dog licking her leg wounds. Risk of endocarditis is extremely rare. Repeat blood cultures 07/12/2024 are negative so far Patient initially treated with the IV cefepime and Flagyl, now switched to oral Augmentin and doxycycline Midodrine added. Weaned off phyenlephrine WBC count remains between 14 and 17 Continue with antibiotics in the form of Augmentin and doxycycline Continue current wound care treatment (2) Atrial fibrillation with rapid ventricular response: Code(s): I48.91 - Unspecified atrial fibrillation Status: Acute Assessment and Plan: Patient has a history of paroxysmal atrial fibrillation. Unclear if she is been in and out of AFib since her symptom is blurry vision. Echo in December 2023 showing normal LV systolic function with EF of 50-55%, mildly enlarged RV with normal RV systolic function, severe biatrial enlargement, moderate-severe MR and moderate TR. Patient is noncompliant with Xarelto and admits to stopping Xarelto for 4-5 days at a time due to bruising. Baseline hemoglobin is 11-13. Hemoglobin 11.2 on admission and stable Xarelto resumed. Started on Diltiazem IV drip but BP became soft so phenylephrine started. Heart rate became better controlled. Switched to oral diltiazem and tolerating this well. Consider switching to oral Cardizem CD/SR upon discharge Monitor hemoglobin. Monitor HR and BP (3) Bilateral lower leg cellulitis: Code(s): L03.116 - Cellulitis of left lower limb; L03.115 - Cellulitis of right lower limb Status: Acute Assessment and Plan: LE venous doppler showing no thrombosed vessels but exam incomplete due to her size. Wound care consulted. Possible right sided failure with moderate TR, PASP 43mmHg and mildly dilated RV size but normal RV function. Elevated RAP 8mmHg. As above. Continue antibiotics. Continue wound care treatment. Continue Xarelto. 07/16/2024: Patient given Lasix 40 mg IV x1 dose And started on Lasix 20 mg IV b.i.d. as tolerated, will increase to 20 mg q8hrs. add iv albumin as well. (4) Hyponatremia: Code(s): E87.1 - Hypo-osmolality and hyponatremia Status: Acute Assessment and Plan: Sodium 128 on admission. Probably related to dehydration given the elevated renal function. Urine Eos negative. Urine Na <5 with FENa .02% consistent prerenal (probably from poor renal perfusion from HoTN) She has been fluid resuscitated and she is fluid positive. Sodium better at 130 Follow-up closely with Nephrology Consider adding oral sodium chloride pills for few days (5) Acute kidney injury: Code(s): N17.9 - Acute kidney failure, unspecified Status: Acute Assessment and Plan: Patient has normal baseline renal function. BUN 48 and creatinine 1.5 on admission. Probably related to ATN from sepsis/HoTN and/or prerenal from dehydration although she has been eating well, not on diuretics and denies n/v/d Renal ultrasound showin
[2024-07-18] MEDS: ALBUMIN HUMAN 25% 25 GM/100 ML 100 ML IVPB (17:25)
[2024-07-18] MEDS: RIVAROXABAN 20 MG TABLET PO (17:25)
[2024-07-18] MEDS: ACETAMINOPHEN 500 MG TABLET 1000 MG PO (21:34)
[2024-07-19] VITALS (11 sets, daily range): BP systolic 101–112; BP diastolic 61–82; PULSE 73–103; RESP 18–20; TEMP 36.4–36.7; O2SAT 97–100
[2024-07-19] MEDS: ALBUMIN HUMAN 25% 25 GM/100 ML 100 ML IVPB ×5 (01:50→23:55)
[2024-07-19] MEDS: dilTIAZem HCL 30 MG TABLET PO ×5 (01:57→23:55)
[2024-07-19] MEDS: AMOXICILLIN/CLAVULANATE K 875-125 MG TAB 1 TABLET PO ×3 (05:50→21:42)
[2024-07-19] MEDS: CENTRAL LINE FLUSH 10 ML IV PUSH ×3 (05:50→21:43)
--- NOTE | 2024-07-19 08:23 | P.PNCROSS_ITS ---
Event Note Event Note Event Note: Labs stable. as stated by him, Dr. Dean will continue to follow from a dis tance
[2024-07-19] MEDS: DOXYCYCLINE HYCLATE 100 MG TABLET PO ×2 (08:57→21:43)
[2024-07-19] MEDS: MIDODRINE HCL 10 MG TABLET PO ×3 (08:57→17:55)
[2024-07-19] MEDS: ASPIRIN 81 MG CHEWABLE TABLET PO (08:57)
[2024-07-19] MEDS: SODIUM CHLORIDE 500 MG TABLET PO (08:57)
[2024-07-19] MEDS: polyethylene glycoL 3350 17 GM POWD.PACK PO (08:57)
[2024-07-19] MEDS: MULTIVITAMINS /C LUTEIN (CENTRUM SILVER) TABLET *BKC 1 TAB PO (08:57)
[2024-07-19 10:57] LABS: Basophils Absolute Auto 0.1 K/mm3 (0.0-0.1); Basophils Percent Auto 0.6 % (0.2-1.2); Eosinophils Absolute Auto 0.2 K/mm3 (0-0.3); Eosinophils Percent Auto 1.9 % (0-4.4); Hematocrit 29.6 % (37.0-47.0); Hemoglobin 9.3 g/dL (12.0-15.0); Immature Granulocyte Absolute 0.31 K/mm3 (0.00-0.031); Immature Granulocyte Percent A 2.5 % (0-0.5); Lymphocytes Absolute Auto 1.09 K/mm3 (0.9-3.2); Lymphocytes Percent Auto 8.6 % (18.3-44.2); Mean Corpuscular HGB Conc 31.4 g/dl (32-36); Mean Corpuscular Hemoglobin 29.5 pg (26-34); Mean Platelet Volume 8.9 fl (7.4-10.4); Monocytes Percent Auto 8.1 % (2.6-8.5); Neutrophils Absolute Auto 9.9 K/mm3 (1.3-6.7); Neutrophils Percent Auto 78.3 % (45.5-73.1); Platelet Count Result 341 k/mm3 (150-375); Red Blood Count 3.15 M/mm3 (4.2-5.4); Red Cell Distribution Width 16.6 % (11.5-14.5); White Blood Count 12.7 K/mm3 (4.5-10.0)
[2024-07-19 11:08] LABS: Alanine Aminotransferase 14 U/L (6-35); Albumin Level 3.5 g/dL (3.5-5.1); Alkaline Phosphatase 98 U/L (38-126); Anion Gap 8 mmol/L (4-12); Aspartate Amino Transferase 34 U/L (14-36); Bilirubin,Total 2.5 mg/dL (0.2-1.3); Blood Urea Nitrogen 27 mg/dL (7-17); Calcium 8.6 mg/dL (8.4-10.2); Carbon Dioxide 28 mmol/L (22-30); Chloride 96 mmol/L (98-107); Estimated CRCL calculation 107 ml/min; Estimated Glomerular Filt Rate > 60; Glucose 127 mg/dL (65-110); Magnesium 1.8 mg/dL (1.6-2.3); Potassium 3.4 mmol/L (3.4-5.0); Sodium 132 mmol/L (137-145)
--- NOTE | 2024-07-19 12:50 | P.PNIM_ITS ---
Progress Note: A&P Assessment and Plan (1) Septic shock: Code(s): A41.9 - Sepsis, unspecified organism; R65.21 - Severe sepsis with septic shock Status: Acute Assessment and Plan: Patient presents with symptoms of bilateral lower extremity cellulitis. Patient with septic shock noted by fever, low blood pressure, tachycardia, leukocytosis, and lactic acidosis. Consider also cardiogenic shock from severe tachycardia. Doubt that she is in cardiogenic failure from the mitral valve given that her chest x-ray is not consistent with pulmonary edema. Lactic acid trended to normal. Blood pressure has improved with IV fluids and phenylephrine. This is complicated by patient being on diltiazem her AFib/RVR. Cortisol and TSH okay. Cortisol elevated but infection causing a stress response. BCx from 07/09/2024 growing pasteurella multocida in both bottles. LE skin lesions do not appear to resemble purpura fulminans which is more purpuric lesions with skin necrosis. Source is probably her dog licking her leg wounds. Risk of endocarditis is extremely rare. Repeat blood cultures 07/12/2024 are negative so far Patient initially treated with the IV cefepime and Flagyl, now switched to oral Augmentin and doxycycline Midodrine added. Weaned off phyenlephrine WBC count remains between 14 and 17 Continue with antibiotics in the form of Augmentin and doxycycline Continue current wound care treatment (2) Atrial fibrillation with rapid ventricular response: Code(s): I48.91 - Unspecified atrial fibrillation Status: Acute Assessment and Plan: Patient has a history of paroxysmal atrial fibrillation. Unclear if she is been in and out of AFib since her symptom is blurry vision. Echo in December 2023 showing normal LV systolic function with EF of 50-55%, mildly enlarged RV with normal RV systolic function, severe biatrial enlargement, moderate-severe MR and moderate TR. Patient is noncompliant with Xarelto and admits to stopping Xarelto for 4-5 days at a time due to bruising. Baseline hemoglobin is 11-13. Hemoglobin 11.2 on admission and stable Xarelto resumed. Started on Diltiazem IV drip but BP became soft so phenylephrine started. Heart rate became better controlled. Switched to oral diltiazem and tolerating this well. Consider switching to oral Cardizem CD/SR upon discharge Monitor hemoglobin. Monitor HR and BP Will add beta-royer and titrate as tolerated (3) Bilateral lower leg cellulitis: Code(s): L03.116 - Cellulitis of left lower limb; L03.115 - Cellulitis of right lower limb Status: Acute Assessment and Plan: LE venous doppler showing no thrombosed vessels but exam incomplete due to her size. Wound care consulted. Possible right sided failure with moderate TR, PASP 43mmHg and mildly dilated RV size but normal RV function. Elevated RAP 8mmHg. As above. Continue antibiotics. Continue wound care treatment. Continue Xarelto. 07/16/2024: Patient given Lasix 40 mg IV x1 dose And started on Lasix 20 mg IV b.i.d. as tolerated, will increase to 20 mg q8hrs. add iv albumin as well. (4) Hyponatremia: Code(s): E87.1 - Hypo-osmolality and hyponatremia Status: Acute Assessment and Plan: Sodium 128 on admission. Probably related to dehydration given the elevated renal function. Urine Eos negative. Urine Na <5 with FENa .02% consistent prerenal (probably from poor renal perfusion from [facility]) She has been fluid resuscitated and she is fluid positive. Sodium better at 130 Follow-up closely with Nephrology Consider adding oral sodium chloride pills for few days (5) Acute kidney injur
[2024-07-19] MEDS: METOPROLOL TARTRATE 12.5 MG TABLET PO ×2 (13:53→21:42)
[2024-07-19] MEDS: RIVAROXABAN 20 MG TABLET PO (17:55)
[2024-07-19] MEDS: FUROSEMIDE INJ 40 MG/4 ML VIAL 20 MG IV PUSH (17:55)
[2024-07-20] VITALS (11 sets, daily range): BP systolic 100–125; BP diastolic 61–75; PULSE 51–105; RESP 17–18; TEMP 36.8–37; O2SAT 95–97
--- NOTE | 2024-07-20 | ECHO_ITS ---
Patient Info Name: Pili Forrester Age: 63 years : 1960 Gender: Female Ht: 62 in Wt: 306 lbs BSA: 2.56 m2 HR: 76 bpm BP: 109 / 61 mmHg Heart Rhythm: Atrial Fibrillation Technical Quality: Fair Exam Date: 07/20/2024 12:48 PM Exam Location: Echo Lab Patient Status: Inpatient Admit Date: 07/11/2024 Staff Ordering Physician: Daniel Valdivia MD [place] Operator: Mari Bennett [facility] Attending Provider: Jeremiah Hall MD Exam Type: CA echo doppler color flow Study Info Indications I50.20 - Unspecified systolic (congestive) heart failure Complete two-dimensional, color flow and Doppler transthoracic echocardiogram is performed. Summary 1. Left ventricular chamber dimension is normal. 2. Left ventricular systolic function is normal, estimated at 55-60%. 3. Right ventricular chamber dimension is moderately enlarged. 4. Right ventricular systolic function is normal. 5. Flattening of the ventricular septum in mid to late diastole consistent with right ventricular volume overload. 6. Left atrial chamber dimension is moderately enlarged. 7. Right atrial chamber dimension is moderately enlarged. 8. There is mild aortic valve regurgitation. 9. There is moderate to severe mitral valve regurgitation. Severity of regurgitation may be underestimated due to eccentricity of the jet. 10. There is moderate to severe tricuspid valve regurgitation. Severity of regurgitation may be underestimated due to eccentricity of the jet. 11. There is trivial anterior pericardial effusion. 12. Pulmonary hypertension, estimated pulmonary arterial systolic pressure is 50 mmHg. Left Ventricle Left ventricular chamber dimension is normal. Left ventricular systolic function is normal, estimated at 55-60%. There is no increased left ventricular wall thickness. The left ventricular diastolic function is abnormal. Right Ventricle Flattening of the ventricular septum in mid to late diastole consistent with right ventricular volume overload. Right ventricular chamber dimension is moderately enlarged. Right ventricular systolic function is normal. Left Atria Left atrial chamber dimension is moderately enlarged. Right Atria Right atrial chamber dimension is moderately enlarged. Atrial Septum Intact interatrial septum visualized by color flow imaging. Aortic Valve The aortic valve is trileaflet. There is no aortic valve stenosis. There is mild aortic valve regurgitation. There is mild aortic valve calcification. Pulmonic Valve The pulmonic valve is not well visualized. There is trace pulmonic regurgitation. Mitral Valve There is moderate to severe mitral valve regurgitation. Severity of regurgitation may be underestimated due to eccentricity of the jet. The mitral valve annulus is mildly calcified. Tricuspid Valve There is moderate to severe tricuspid valve regurgitation. Severity of regurgitation may be underestimated due to eccentricity of the jet. Pulmonary hypertension, estimated pulmonary arterial systolic pressure is 50 mmHg. Pericardium/Pleural There is trivial anterior pericardial effusion. Inferior Vena Cava Dilated inferior vena cava with <50% collapse upon inspiration consistent with elevated right atrial pressure, 15 mmHg. Aorta The aortic root size at the sinus of Valsalva is normal. Left Ventricular Outflow Tract Name Value Normal LVOT 2D
[2024-07-20 05:30] LABS: Basophils Absolute Auto 0.1 K/mm3 (0.0-0.1); Basophils Percent Auto 0.5 % (0.2-1.2); Eosinophils Absolute Auto 0.2 K/mm3 (0-0.3); Eosinophils Percent Auto 1.2 % (0-4.4); Hematocrit 28.6 % (37.0-47.0); Hemoglobin 9.3 g/dL (12.0-15.0); Immature Granulocyte Percent A 1.5 % (0-0.5); Lymphocytes Absolute Auto 1.08 K/mm3 (0.9-3.2); Lymphocytes Percent Auto 8.1 % (18.3-44.2); Mean Corpuscular HGB Conc 32.5 g/dl (32-36); Mean Corpuscular Hemoglobin 30.7 pg (26-34); Mean Corpuscular Volume 94.4 fl (80-100); Mean Platelet Volume 9.5 fl (7.4-10.4); Monocytes Absolute Auto 1.2 K/mm3 (0.1-0.6); Monocytes Percent Auto 9.1 % (2.6-8.5); Neutrophils Absolute Auto 10.6 K/mm3 (1.3-6.7); Neutrophils Percent Auto 79.6 % (45.5-73.1); Platelet Count Result 295 k/mm3 (150-375); Red Blood Count 3.03 M/mm3 (4.2-5.4); Red Cell Distribution Width 16.4 % (11.5-14.5); White Blood Count 13.3 K/mm3 (4.5-10.0)
[2024-07-20] MEDS: AMOXICILLIN/CLAVULANATE K 875-125 MG TAB 1 TABLET PO ×3 (05:30→21:27)
[2024-07-20] MEDS: dilTIAZem HCL 30 MG TABLET PO (05:30)
[2024-07-20] MEDS: ALBUMIN HUMAN 25% 25 GM/100 ML 100 ML IVPB ×3 (05:30→17:18)
[2024-07-20] MEDS: CENTRAL LINE FLUSH 10 ML IV PUSH ×3 (05:30→21:27)
[2024-07-20 05:42] LABS: Alanine Aminotransferase 13 U/L (6-35); Albumin Level 3.8 g/dL (3.5-5.1); Alkaline Phosphatase 106 U/L (38-126); Anion Gap 10 mmol/L (4-12); Aspartate Amino Transferase 35 U/L (14-36); Bilirubin,Total 3.1 mg/dL (0.2-1.3); Blood Urea Nitrogen 28 mg/dL (7-17); Carbon Dioxide 29 mmol/L (22-30); Chloride 96 mmol/L (98-107); Estimated CRCL calculation 93 ml/min; Estimated Glomerular Filt Rate > 60; Glucose 94 mg/dL (65-110); Magnesium 1.8 mg/dL (1.6-2.3); Potassium 3.6 mmol/L (3.4-5.0); Sodium 135 mmol/L (137-145)
--- NOTE | 2024-07-20 07:56 | PM.IMPN ---
Progress Note: A&P Assessment and Plan (1) Septic shock: Code(s): A41.9 - Sepsis, unspecified organism; R65.21 - Severe sepsis with septic shock Status: Acute Assessment and Plan: Patient presents with symptoms of bilateral lower extremity cellulitis. Patient with septic shock noted by fever, low blood pressure, tachycardia, leukocytosis, and lactic acidosis. Consider also cardiogenic shock from severe tachycardia. Doubt that she is in cardiogenic failure from the mitral valve given that her chest x-ray is not consistent with pulmonary edema. Lactic acid trended to normal. Blood pressure has improved with IV fluids and phenylephrine. This is complicated by patient being on diltiazem her AFib/RVR. Cortisol and TSH okay. Cortisol elevated but infection causing a stress response. BCx from 07/09/2024 growing pasteurella multocida in both bottles. LE skin lesions do not appear to resemble purpura fulminans which is more purpuric lesions with skin necrosis. Source is probably her dog licking her leg wounds. Risk of endocarditis is extremely rare. Repeat blood cultures 07/12/2024 are negative so far Patient initially treated with the IV cefepime and Flagyl, now switched to oral Augmentin and doxycycline Midodrine added. Weaned off phyenlephrine WBC count improved but still persistent Continue with antibiotics in the form of Augmentin and doxycycline Continue current wound care treatment (2) Atrial fibrillation with rapid ventricular response: Code(s): I48.91 - Unspecified atrial fibrillation Status: Acute Assessment and Plan: Patient has a history of paroxysmal atrial fibrillation. Unclear if she is been in and out of AFib since her symptom is blurry vision. Echo in December 2023 showing normal LV systolic function with EF of 50-55%, mildly enlarged RV with normal RV systolic function, severe biatrial enlargement, moderate-severe MR and moderate TR. Patient is noncompliant with Xarelto and admits to stopping Xarelto for 4-5 days at a time due to bruising. Baseline hemoglobin is 11-13. Hemoglobin 11.2 on admission and stable Xarelto resumed. Started on Diltiazem IV drip but BP became soft so phenylephrine started. Heart rate became better controlled. Switched to oral diltiazem and tolerating this well. Consider switching to oral Cardizem CD/SR upon discharge Monitor hemoglobin. Monitor HR and BP added beta-royer and titrate as tolerated Went into AFib with RVR 07/19/2024. Cardiology on board (3) Bilateral lower leg cellulitis: Code(s): L03.116 - Cellulitis of left lower limb; L03.115 - Cellulitis of right lower limb Status: Acute Assessment and Plan: LE venous doppler showing no thrombosed vessels but exam incomplete due to her size. Wound care consulted. Possible right sided failure with moderate TR, PASP 43mmHg and mildly dilated RV size but normal RV function. Elevated RAP 8mmHg. As above. Continue antibiotics. Continue wound care treatment. Continue Xarelto. 07/16/2024: Patient given Lasix 40 mg IV x1 dose And started on Lasix 20 mg IV b.i.d. as tolerated, will increase to 20 mg q8hrs. add iv albumin as well. remains on Lasix IV b.i.d. with severe tricuspid regurgitation and right heart failure probably has normal room to go up on the diuresis. Particularly with low blood pressure (4) Hyponatremia: Code(s): E87.1 - Hypo-osmolality and hyponatremia Status: Acute Assessment and Plan: Sodium 128 on admission. Probably related to dehydration given the elevated renal function. Urine Eos negative. Urine Na <5 with FENa .02% consistent prerenal (probably from poor renal perfusion from [facility]) She has been fluid resuscitated and she is fluid positive. Sodium better at 130 Follow-up closely with Nephrology on sodium chloride tablets (5) Acute kidney injury: Code(s): N17.9 - Acute kidney failure, unspecified Status: Acute Assessment and Plan
[2024-07-20] MEDS: SODIUM CHLORIDE 500 MG TABLET PO (08:39)
[2024-07-20] MEDS: MIDODRINE HCL 10 MG TABLET PO ×3 (08:40→17:17)
[2024-07-20] MEDS: DOXYCYCLINE HYCLATE 100 MG TABLET PO ×2 (08:40→21:27)
[2024-07-20] MEDS: dilTIAZem HCL CD 120 MG CAP.24HR PO (08:40)
[2024-07-20] MEDS: MULTIVITAMINS /C LUTEIN (CENTRUM SILVER) TABLET *BKC 1 TAB PO (08:40)
[2024-07-20] MEDS: ASPIRIN 81 MG CHEWABLE TABLET PO (08:40)
[2024-07-20] MEDS: METOPROLOL TARTRATE 12.5 MG TABLET PO ×2 (08:40→21:27)
[2024-07-20] MEDS: polyethylene glycoL 3350 17 GM POWD.PACK PO (08:41)
[2024-07-20] MEDS: FUROSEMIDE INJ 40 MG/4 ML VIAL 20 MG IV PUSH ×2 (08:42→17:17)
--- NOTE | 2024-07-20 09:21 | PM.CNCAR ---
Assessment and Plan Assessment and plan (1) Atrial fibrillation with rapid ventricular response: Code(s): I48.91 - Unspecified atrial fibrillation Status: Acute Assessment and Plan: She has chronic atrial fibrillation being managed with rate control and anticoagulation. Has intermittent AF RVR, mostly with activity. Low dose metoprolol was added to her regimen yesterday which I agree with. This seems to be providing better rate control. Can up titrate metoprolol as needed and as blood pressure allows. Continue Diltiazem 120mg daily. Continue Xarelto. She is also on aspirin here which I do not believe she has an indication for so this can be discontinued. (2) Mitral regurgitation: Code(s): I34.0 - Nonrheumatic mitral (valve) insufficiency Status: Acute Assessment and Plan: Moderate to severe by echo in December 2023. Repeat echo has been ordered by the hospitalist. Will review results when available. History of Present Illness History of Present Illness Consult date/time: 07/20/24 09:21 Requesting physician: Jeremiah Hall MD Consult reason: known to you Reason For Visit: Atrial fibrillation with rapid ventricular respons Narrative: Patient is a 63-year-old female with past medical history significant for atrial flutter status post caval tricuspid isthmus ablation and was rib [employer] 2012, paroxysmal atrial fibrillation, intolerance to flecainide, morbid obesity, history of cervical cancer who is admitted for treatment of lower extremity cellulitis and sepsis. The patient has requested that she be seen by cardiology during her hospital stay. She has no cardiovascular complaints but she is frustrated that her physical therapy is being limited by tachycardia. She has been having atrial fibrillation with rapid ventricular response during periods of activity with heart rates in the 160's. She does not feel palpitations or shortness of breath. She is sitting comfortably in the chair at the time of my evaluation and has no complaints. 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 She has a dog Lifelong nonsmoker. Denies alcohol or drug use. Surrogate medical decision maker: Kishan Forrester, brother. Code status: Full Smoking status: Never smoker Second hand tobacco smoke exposure: No Alcohol intake: former Substance use: never Do You Feel Safe in your Home?: Yes Lack of Transportation: No Lack of Food: Never True Current Housing: I Have Housing Concerned About Future Housing: No Difficulty Paying Gas/Electric Bills: No Difficulty Paying for Meds: No Currently Unemployed: No Education: Master's Degree or Higher Difficulty w/ Childcare or Family Care: No Additional living arrangements comments: The patient lives in her own home in [place]. She has a boxer named Dana. She does not have any children. 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
[2024-07-20] MEDS: POTASSIUM CHLORIDE 20 MEQ ER TABLET 40 MEQ PO (13:58)
[2024-07-20] MEDS: MAGNESIUM OXIDE 400 MG TABLET PO (13:58)
[2024-07-20] MEDS: RIVAROXABAN 20 MG TABLET PO (17:17)
[2024-07-20] MEDS: ACETAMINOPHEN 500 MG TABLET 1000 MG PO (21:27)
[2024-07-21] VITALS (12 sets, daily range): BP systolic 113–127; BP diastolic 65–80; PULSE 65–109; RESP 17–18; TEMP 36.5–37.4; O2SAT 94–97
[2024-07-21] MEDS: ALBUMIN HUMAN 25% 25 GM/100 ML 100 ML IVPB ×4 (00:57→17:24)
[2024-07-21] MEDS: AMOXICILLIN/CLAVULANATE K 875-125 MG TAB 1 TABLET PO ×3 (04:43→21:35)
[2024-07-21] MEDS: CENTRAL LINE FLUSH 10 ML IV PUSH ×3 (04:43→21:35)
[2024-07-21 05:58] LABS: Basophils Absolute Auto 0.1 K/mm3 (0.0-0.1); Basophils Percent Auto 0.7 % (0.2-1.2); Eosinophils Absolute Auto 0.2 K/mm3 (0-0.3); Eosinophils Percent Auto 1.7 % (0-4.4); Hematocrit 26.2 % (37.0-47.0); Hemoglobin 8.3 g/dL (12.0-15.0); Immature Granulocyte Absolute 0.12 K/mm3 (0.00-0.031); Immature Granulocyte Percent A 1.1 % (0-0.5); Immature Platelet Fraction Pct 1.9 % (0.9-11.2); Lymphocytes Absolute Auto 0.93 K/mm3 (0.9-3.2); Lymphocytes Percent Auto 8.4 % (18.3-44.2); Mean Corpuscular HGB Conc 31.7 g/dl (32-36); Mean Corpuscular Hemoglobin 30.3 pg (26-34); Mean Corpuscular Volume 95.6 fl (80-100); Mean Platelet Volume 11.7 fl (7.4-10.4); Monocytes Absolute Auto 0.9 K/mm3 (0.1-0.6); Monocytes Percent Auto 8.4 % (2.6-8.5); Neutrophils Absolute Auto 8.8 K/mm3 (1.3-6.7); Neutrophils Percent Auto 79.7 % (45.5-73.1); Platelet Count Result 375 k/mm3 (150-375); Red Blood Count 2.74 M/mm3 (4.2-5.4); Red Cell Distribution Width 16.5 % (11.5-14.5)
[2024-07-21 06:28] LABS: Alanine Aminotransferase 13 U/L (6-35); Alkaline Phosphatase 87 U/L (38-126); Anion Gap 10 mmol/L (4-12); Aspartate Amino Transferase 30 U/L (14-36); Bilirubin,Total 3.7 mg/dL (0.2-1.3); Blood Urea Nitrogen 30 mg/dL (7-17); Carbon Dioxide 29 mmol/L (22-30); Chloride 95 mmol/L (98-107); Estimated CRCL calculation 93 ml/min; Estimated Glomerular Filt Rate > 60; Glucose 90 mg/dL (65-110); Magnesium 1.9 mg/dL (1.6-2.3); Potassium 3.6 mmol/L (3.4-5.0); Sodium 134 mmol/L (137-145)
[2024-07-21] MEDS: dilTIAZem HCL CD 120 MG CAP.24HR PO (08:53)
[2024-07-21] MEDS: ASPIRIN 81 MG CHEWABLE TABLET PO (08:53)
[2024-07-21] MEDS: FUROSEMIDE INJ 40 MG/4 ML VIAL 20 MG IV PUSH (08:54)
[2024-07-21] MEDS: MAGNESIUM OXIDE 400 MG TABLET PO (08:54)
[2024-07-21] MEDS: SODIUM CHLORIDE 500 MG TABLET PO (08:54)
[2024-07-21] MEDS: MIDODRINE HCL 10 MG TABLET PO ×3 (08:54→17:24)
[2024-07-21] MEDS: MULTIVITAMINS /C LUTEIN (CENTRUM SILVER) TABLET *BKC 1 TAB PO (08:55)
[2024-07-21] MEDS: METOPROLOL TARTRATE 12.5 MG TABLET PO (08:55)
[2024-07-21] MEDS: polyethylene glycoL 3350 17 GM POWD.PACK PO (08:55)
--- NOTE | 2024-07-21 09:18 | PM.PNCARD ---
Progress Note: A&P Assessment and Plan (1) Atrial fibrillation with rapid ventricular response: Code(s): I48.91 - Unspecified atrial fibrillation Status: Acute Assessment and Plan: She has chronic atrial fibrillation being managed with rate control and anticoagulation. Has intermittent AF RVR, mostly with activity, improved with low dose metoprolol being added to her regimen yesterday. This seems to be providing better rate control than diltiazem alone. Can up titrate metoprolol as needed and as blood pressure allows. Continue Diltiazem 120mg daily. Continue Xarelto. She is also on aspirin here which I do not believe she has an indication for so this can be discontinued. (2) Mitral regurgitation: Code(s): I34.0 - Nonrheumatic mitral (valve) insufficiency Status: Acute Assessment and Plan: Moderate to severe by echo in December 2023. Repeat echo has been ordered by the hospitalist. Will review results when available. Subjective Date/time seen: 07/21/24 09:18 Interval history: Cardiology follow up for atrial fibrillation Date of service 07/21/2024: Feels fatigued today but otherwise has no complaints. Review of Systems Review of Systems: All systems reviewed & are unremarkable except as noted in HPI and below Exam Const: General: comfortable, no acute distress, alert and awake Orientation/consciousness: patient oriented x3 Other: Morbidly obese HENMT: Head: normal to inspection Eyes: General: appearance normal, both eyes and all related structures Pupils: Equal, round and reactive pupils present Neck: Neck: normal visual inspection and supple Carotids: normal carotid upstroke Other: Unable to assess for JVD due to body habitus Resp: Effort & Inspection: normal respiratory effort Auscultation: clear to auscultation bilaterally Cardio: Rate: regular rate Rhythm: abnormal rhythm irregularly irregular Heart sounds: S1 normal heart sound present, S2 normal heart sound present and no murmurs GI: Auscultation: normal bowel sounds Urinary Catheter: Urinary Catheter: patent and draining Skin: General skin exam: normal color and wounds noted (Bilateral lower extremities) Wounds: wounds noted (Bilateral lower extremities) Neuro: General: patient oriented x3 Cranial nerves: Yes Equal, round and reactive pupils present Extrem: General: abnormal to inspection, edema and pedal edema Psych: Appearance: grossly normal Mental Status: mental status grossly normal Objective Data Vital Signs Vital Signs: Vital Signs - 24 hr 07/20/24 12:00 07/20/24 14:00 07/20/24 16:00 Temperature 36.8 C Pulse Rate 95 84 96 Respiratory Rate 18 Blood Pressure 125/71 Pulse Oximetry 97 Oxygen Delivery 07/20/24 20:24 07/20/24 20:00 07/20/24 20:00 Temperature 36.8 C Pulse Rate 51 L 51 L 101 H Respiratory Rate 17 17 Blood Pressure 100/75 Pulse Oximetry 95 95 Oxygen Delivery Room Air 07/21/24 00:00 07/21/24 04:00 07/21/24 05:05 Temperature 36.5 C Pulse Rate 97 87 65 Respiratory Rate 17 Blood Pressure 117/66 Pulse Oximetry 96 Oxygen Delivery 07/21/24 08:55 Temperature Pulse Rate 101 H Respiratory Rate Blood Pressure Pulse Oximetry Oxygen Delivery Intake/Output Intake/Output: Intake & Output 07/18/24 07/19/24 07/20/24 07/21/24 23:59 23:59 23:59 23:59 Intake Total 0951 508 9326 450 Output Total 2450 950 1750 600 Balance -610 -70 -80 -150 Meds/Results Medications: Active Medications Generic Name Dose Route Start Last Admin Trade Name Freq PRN Reason Stop Dose Admin Acetaminophen 1,000 mg 07/10/24 06:18 07/20/24 21:27 Acetaminophen 500 Mg Tablet PO 1,000 mg Q6H PRN Administration Mild Pain (1-3) or Fever Hydrocodone Bitart/Acetaminophen 1 tab 07/12/24 08:06 Hydrocodone/Acetaminophen (*Crx) 5-325 Mg Tablet PO Q4H PRN Pain Rated 4-6 Alteplase, Recombinant 2 mg
[2024-07-21] MEDS: DOXYCYCLINE HYCLATE 100 MG TABLET PO ×2 (10:28→20:26)
--- NOTE | 2024-07-21 11:09 | PC.NURSE ---
On 07/21/24, the student, [Sarah Mejia], provided care and completed [facility] documentation on this patient. I have reviewed the student's documentation and agree with the findings.
--- NOTE | 2024-07-21 11:22 | PCPTNOTE ---
Patient refused treatment this session. Patient reported she has a lot going on right now and needed a moment to herself. Encouraged patient for participation, patient continued to refuse.
[2024-07-21 12:02] LABS: Add Urine Microscopic? YES; Appearance Urine Clear (Clear); Bacteria Urine None Seen /hpf; Bilirubin Urine Negative (Negative); Blood Urine 3+ (Negative); Color Urine Dark Yellow (Yellow); Glucose Urine UA Negative (Negative); Ketones Urine Negative (Negative); Leukocyte Esterase Ur Negative LEU/UL (Negative); Nitrate Urine Negative (Negative); Protein Urine Negative (Negative); Specific Grav Ur 1.013 (1.001-1.035); Squamous Epithelial Cell Urine None Seen /hpf (Few); WBC Urine 0-5 /hpf (0-3); pH Urine 5.5 (5.0-9.0)
--- NOTE | 2024-07-21 12:35 | PM.IMPN ---
Progress Note: A&P Assessment and Plan (1) Septic shock: Code(s): A41.9 - Sepsis, unspecified organism; R65.21 - Severe sepsis with septic shock Status: Acute Assessment and Plan: Patient presents with symptoms of bilateral lower extremity cellulitis. Patient with septic shock noted by fever, low blood pressure, tachycardia, leukocytosis, and lactic acidosis. Consider also cardiogenic shock from severe tachycardia. Doubt that she is in cardiogenic failure from the mitral valve given that her chest x-ray is not consistent with pulmonary edema. Lactic acid trended to normal. Blood pressure has improved with IV fluids and phenylephrine. This is complicated by patient being on diltiazem her AFib/RVR. Cortisol and TSH okay. Cortisol elevated but infection causing a stress response. BCx from 07/09/2024 growing pasteurella multocida in both bottles. LE skin lesions do not appear to resemble purpura fulminans which is more purpuric lesions with skin necrosis. Source is probably her dog licking her leg wounds. Risk of endocarditis is extremely rare. Repeat blood cultures 07/12/2024 are negative so far Patient initially treated with the IV cefepime and Flagyl, now switched to oral Augmentin and doxycycline Midodrine added. Weaned off phyenlephrine WBC count improved but still persistent Continue with antibiotics in the form of Augmentin and doxycycline Continue current wound care treatment (2) Atrial fibrillation with rapid ventricular response: Code(s): I48.91 - Unspecified atrial fibrillation Status: Acute Assessment and Plan: Patient has a history of paroxysmal atrial fibrillation. Unclear if she is been in and out of AFib since her symptom is blurry vision. Echo in December 2023 showing normal LV systolic function with EF of 50-55%, mildly enlarged RV with normal RV systolic function, severe biatrial enlargement, moderate-severe MR and moderate TR. Patient is noncompliant with Xarelto and admits to stopping Xarelto for 4-5 days at a time due to bruising. Baseline hemoglobin is 11-13. Hemoglobin 11.2 on admission and stable Xarelto resumed. Started on Diltiazem IV drip but BP became soft so phenylephrine started. Heart rate became better controlled. Switched to oral diltiazem and tolerating this well. Consider switching to oral Cardizem CD/SR upon discharge Monitor hemoglobin. Monitor HR and BP added beta-royer and titrate as tolerated Went into AFib with RVR 07/19/2024. Cardiology on board line will up titrate beta-royer (3) Bilateral lower leg cellulitis: Code(s): L03.116 - Cellulitis of left lower limb; L03.115 - Cellulitis of right lower limb Status: Acute Assessment and Plan: LE venous doppler showing no thrombosed vessels but exam incomplete due to her size. Wound care consulted. Possible right sided failure with moderate TR, PASP 43mmHg and mildly dilated RV size but normal RV function. Elevated RAP 8mmHg. As above. Continue antibiotics. Continue wound care treatment. Continue Xarelto. 07/16/2024: Patient given Lasix 40 mg IV x1 dose And started on Lasix 20 mg IV b.i.d. as tolerated, will increase to 20 mg q8hrs. add iv albumin as well. remains on Lasix IV b.i.d. with severe tricuspid regurgitation and right heart failure probably has normal room to go up on the diuresis. Particularly with low blood pressure Echo repeated 07/20/2024 with moderate to severe TR and MR, PASP 50 mm Hg Refused apnea link testing (4) Hyponatremia: Code(s): E87.1 - Hypo-osmolality and hyponatremia Status: Acute Assessment and Plan: Sodium 128 on admission. Probably related to dehydration given the elevated renal function. Urine Eos negative. Urine Na <5 with FENa .02% consistent prerenal (probably from poor renal perfusion from [facility]) She has been fluid resuscitated and she is fluid positive. Sodium better at 130 Follow-up closely with Nephrology on sodium chloride tablets
[2024-07-21] MEDS: RIVAROXABAN 20 MG TABLET PO (17:24)
[2024-07-21] MEDS: METOPROLOL TARTRATE 25 MG TABLET PO (20:26)
[2024-07-22] VITALS (11 sets, daily range): BP systolic 108–132; BP diastolic 63–74; PULSE 89–115; RESP 16–18; TEMP 36.9–37.3; O2SAT 94–98
[2024-07-22] MEDS: ALBUMIN HUMAN 25% 25 GM/100 ML 100 ML IVPB ×2 (00:07→06:18)
[2024-07-22 06:14] LABS: Basophils Absolute Auto 0.1 K/mm3 (0.0-0.1); Basophils Percent Auto 0.9 % (0.2-1.2); Eosinophils Absolute Auto 0.2 K/mm3 (0-0.3); Eosinophils Percent Auto 1.9 % (0-4.4); Hematocrit 23.7 % (37.0-47.0); Hemoglobin 7.3 g/dL (12.0-15.0); Immature Granulocyte Absolute 0.09 K/mm3 (0.00-0.031); Immature Granulocyte Percent A 0.9 % (0-0.5); Lymphocytes Absolute Auto 1.03 K/mm3 (0.9-3.2); Lymphocytes Percent Auto 10.2 % (18.3-44.2); Mean Corpuscular HGB Conc 30.8 g/dl (32-36); Mean Corpuscular Hemoglobin 29.4 pg (26-34); Mean Corpuscular Volume 95.6 fl (80-100); Mean Platelet Volume 10.7 fl (7.4-10.4); Monocytes Percent Auto 10.3 % (2.6-8.5); Neutrophils Absolute Auto 7.7 K/mm3 (1.3-6.7); Neutrophils Percent Auto 75.8 % (45.5-73.1); Platelet Count Result 205 k/mm3 (150-375); Red Blood Count 2.48 M/mm3 (4.2-5.4); Red Cell Distribution Width 16.5 % (11.5-14.5); White Blood Count 10.1 K/mm3 (4.5-10.0)
[2024-07-22] MEDS: CENTRAL LINE FLUSH 10 ML IV PUSH ×3 (06:18→21:10)
[2024-07-22] MEDS: AMOXICILLIN/CLAVULANATE K 875-125 MG TAB 1 TABLET PO ×3 (06:18→21:10)
[2024-07-22 06:21] LABS: Potassium 3.4 mmol/L (3.4-5.0)
[2024-07-22 06:28] LABS: Alanine Aminotransferase 13 U/L (6-35); Albumin Level 3.9 g/dL (3.5-5.1); Alkaline Phosphatase 78 U/L (38-126); Anion Gap 11 mmol/L (4-12); Aspartate Amino Transferase 34 U/L (14-36); Bilirubin,Total 3.4 mg/dL (0.2-1.3); Blood Urea Nitrogen 36 mg/dL (7-17); Calcium 9.2 mg/dL (8.4-10.2); Carbon Dioxide 28 mmol/L (22-30); Chloride 96 mmol/L (98-107); Estimated CRCL calculation 93 ml/min; Estimated Glomerular Filt Rate > 60; Glucose 88 mg/dL (65-110); Magnesium 1.8 mg/dL (1.6-2.3); Sodium 135 mmol/L (137-145)
[2024-07-22 08:17] LABS: Hematocrit 23.2 % (37.0-47.0); Hemoglobin 7.5 g/dL (12.0-15.0)
[2024-07-22] MEDS: MIDODRINE HCL 10 MG TABLET PO ×3 (08:42→17:37)
[2024-07-22] MEDS: DOXYCYCLINE HYCLATE 100 MG TABLET PO ×2 (08:42→20:19)
[2024-07-22] MEDS: METOPROLOL TARTRATE 25 MG TABLET PO ×2 (08:42→20:19)
[2024-07-22] MEDS: dilTIAZem HCL CD 120 MG CAP.24HR PO (08:42)
[2024-07-22] MEDS: polyethylene glycoL 3350 17 GM POWD.PACK PO (08:42)
[2024-07-22] MEDS: SODIUM CHLORIDE 500 MG TABLET PO (08:42)
[2024-07-22] MEDS: MAGNESIUM SULF 2 GM/WATER 50ML 2 GM/50 ML BAG IVPB (08:47)
[2024-07-22] MEDS: POTASSIUM CHLORIDE 20 MEQ PACKET (FOR LIQUID) 40 MEQ PO (08:52)
[2024-07-22 09:43] LABS: Iron 31 ug/dL (37-170)
[2024-07-22 09:44] LABS: Bilirubin Direct 0.8 mg/dL (0-0.3); Bilirubin Indirect 1.3 mg/dL (0-1.1); Creatine Kinase 24 U/L (30-135)
[2024-07-22 09:53] LABS: Percent Iron Saturation 17 % (20-50)
[2024-07-22 10:53] LABS: Folic Acid 8.1 ng/mL (2.76->20)
[2024-07-22] MEDS: MAGNESIUM OXIDE 400 MG TABLET PO (12:27)
[2024-07-22] MEDS: MULTIVITAMINS /C LUTEIN (CENTRUM SILVER) TABLET *BKC 1 TAB PO (12:28)
--- NOTE | 2024-07-22 17:19 | PM.IMPN ---
Progress Note: A&P Assessment and Plan (1) Septic shock: Code(s): A41.9 - Sepsis, unspecified organism; R65.21 - Severe sepsis with septic shock Status: Acute Assessment and Plan: Patient presents with symptoms of bilateral lower extremity cellulitis. Patient with septic shock noted by fever, low blood pressure, tachycardia, leukocytosis, and lactic acidosis. Consider also cardiogenic shock from severe tachycardia. Blood pressure has improved with IV fluids and phenylephrine. This was complicated by patient being on diltiazem for her AFib/RVR. TSH okay. Cortisol elevated but infection causing a stress response. BCx from 07/09/2024 growing pasteurella multocida in all 4 bottles. Source is probably her dog licking her leg wounds. Repeat blood cultures 07/12/2024 are negative Patient initially treated with the IV cefepime and Flagyl, now switched to oral Augmentin and doxycycline to complete a course Midodrine added. Weaned off phenylephrine WBC trending to normal. Continue with antibiotics in the form of Augmentin and doxycycline Continue current wound care treatment (2) Atrial fibrillation with rapid ventricular response: Code(s): I48.91 - Unspecified atrial fibrillation Status: Acute Assessment and Plan: Patient has a history of paroxysmal atrial fibrillation. Unclear if she is been in and out of AFib since her symptom is blurry vision. Echo in December 2023 showing normal LV systolic function with EF of 50-55%, mildly enlarged RV with normal RV systolic function, severe biatrial enlargement, moderate-severe MR and moderate TR. Patient is noncompliant with Xarelto and admits to stopping Xarelto for 4-5 days at a time due to bruising. Xarelto resumed. Started on Diltiazem IV drip but BP became soft so phenylephrine started. Heart rate became better controlled. Switched to oral diltiazem and tolerating this well. Added beta-royer Went into AFib with RVR 07/19/2024. Cardiology on board line will up titrate beta-royer Monitor HR and BP (3) Anemia: Code(s): D64.9 - Anemia, unspecified Status: Acute Assessment and Plan: Baseline hemoglobin is 11-13. Hemoglobin 11.2 on admission Hgb initially stable but has drifted down to the 9-10 range. Over the past 3 dasy, Hgb dropped to 9.3->8.3->7.3 today Anemia of chronic disease. B12/folate normal. Stool guaiac pending Repeat Hgb stable. May be mobilizing fluids with albumin and increased activity. Follow closely with serial HH. Hold Xarelot (4) Bilateral lower leg cellulitis: Code(s): L03.116 - Cellulitis of left lower limb; L03.115 - Cellulitis of right lower limb Status: Acute Assessment and Plan: LE venous doppler showing no thrombosed vessels but exam incomplete due to her size. Wound care consulted. Possible right sided failure with moderate TR, PASP 43mmHg and mildly dilated RV size but normal RV function. Elevated RAP 8mmHg. As above. Continue antibiotics and wound care treatment. Continue Xarelto. 07/16/2024: Patient given Lasix 40 mg IV x1 dose And started on Lasix 20 mg IV b.i.d. through 07/21. IV albumin added at this time. Not on diruetics at home Echo repeated 07/20/2024 with moderate to severe TR and MR, PASP 50 mm Hg Refused apnea link testing. Stop Albumin. Start Lasix oral for a slower diuresis (5) Hyponatremia: Code(s): E87.1 - Hypo-osmolality and hyponatremia Status: Acute Assessment and Plan: Sodium 128 on admission. Probably related to dehydration given the elevated renal function. Urine Eos negative. Urine Na <5 with FENa .02% consistent prerenal (probably from poor renal perfusion from HoTN) She was fluid resuscitated and she remains fluid positive. Sodium better at 135 Follow-up closely with Nephrology Remains on sodium chloride tablets; will stop and monitor (6) Acute kidney injury: Code(s): N17.9 - Acute kidney failure, unspecified Stat
[2024-07-22 20:36] LABS: Hematocrit 24.7 % (37.0-47.0); Hemoglobin 7.9 g/dL (12.0-15.0)
[2024-07-23] VITALS (12 sets, daily range): BP systolic 101–104; BP diastolic 52–69; PULSE 85–159; RESP 18–20; TEMP 36.8–37; O2SAT 96–99
[2024-07-23] MEDS: CENTRAL LINE FLUSH 10 ML IV PUSH ×3 (06:21→21:15)
[2024-07-23] MEDS: AMOXICILLIN/CLAVULANATE K 875-125 MG TAB 1 TABLET PO (06:21)
[2024-07-23 06:25] LABS: Basophils Absolute Auto 0.1 K/mm3 (0.0-0.1); Basophils Percent Auto 1.1 % (0.2-1.2); Eosinophils Absolute Auto 0.2 K/mm3 (0-0.3); Hematocrit 22.3 % (37.0-47.0); Hemoglobin 7.1 g/dL (12.0-15.0); Immature Granulocyte Absolute 0.07 K/mm3 (0.00-0.031); Immature Granulocyte Percent A 0.8 % (0-0.5); Lymphocytes Absolute Auto 0.94 K/mm3 (0.9-3.2); Lymphocytes Percent Auto 10.6 % (18.3-44.2); Mean Corpuscular HGB Conc 31.8 g/dl (32-36); Mean Corpuscular Hemoglobin 30.5 pg (26-34); Mean Corpuscular Volume 95.7 fl (80-100); Mean Platelet Volume 11.4 fl (7.4-10.4); Monocytes Percent Auto 10.7 % (2.6-8.5); Neutrophils Absolute Auto 6.6 K/mm3 (1.3-6.7); Neutrophils Percent Auto 74.8 % (45.5-73.1); Platelet Count Result 158 k/mm3 (150-375); Red Blood Count 2.33 M/mm3 (4.2-5.4); Red Cell Distribution Width 16.7 % (11.5-14.5); White Blood Count 8.9 K/mm3 (4.5-10.0)
[2024-07-23 06:34] LABS: Albumin Level 3.6 g/dL (3.5-5.1); Anion Gap 7 mmol/L (4-12); Blood Urea Nitrogen 38 mg/dL (7-17); Calcium 8.8 mg/dL (8.4-10.2); Carbon Dioxide 29 mmol/L (22-30); Chloride 100 mmol/L (98-107); Estimated CRCL calculation 107 ml/min; Estimated Glomerular Filt Rate > 60; Glucose 85 mg/dL (65-110); Magnesium 2.1 mg/dL (1.6-2.3); Phosphorus 3.3 mg/dL (2.5-4.5); Potassium 3.9 mmol/L (3.4-5.0); Sodium 136 mmol/L (137-145)
[2024-07-23] MEDS: FUROSEMIDE 20 MG TABLET PO ×2 (08:56→17:26)
[2024-07-23] MEDS: DOXYCYCLINE HYCLATE 100 MG TABLET PO ×2 (08:56→20:36)
[2024-07-23] MEDS: dilTIAZem HCL CD 120 MG CAP.24HR PO (08:56)
[2024-07-23] MEDS: polyethylene glycoL 3350 17 GM POWD.PACK PO (08:57)
[2024-07-23] MEDS: MIDODRINE HCL 10 MG TABLET PO ×3 (08:57→17:26)
[2024-07-23] MEDS: METOPROLOL TARTRATE 25 MG TABLET PO ×2 (08:57→20:37)
[2024-07-23 11:34] LABS: Hematocrit 22.6 % (37.0-47.0); Hemoglobin 7.1 g/dL (12.0-15.0)
[2024-07-23] MEDS: MAGNESIUM OXIDE 400 MG TABLET PO (12:06)
[2024-07-23] MEDS: MULTIVITAMINS /C LUTEIN (CENTRUM SILVER) TABLET *BKC 1 TAB PO (12:06)
--- NOTE | 2024-07-23 17:51 | PM.IMPN ---
Progress Note: A&P Assessment and Plan (1) Septic shock: Code(s): A41.9 - Sepsis, unspecified organism; R65.21 - Severe sepsis with septic shock Status: Acute Assessment and Plan: Patient presents with symptoms of bilateral lower extremity cellulitis. Patient with septic shock noted by fever, low blood pressure, tachycardia, leukocytosis, and lactic acidosis. Consider also cardiogenic shock from severe tachycardia. Blood pressure has improved with IV fluids and phenylephrine. This was complicated by patient being on diltiazem for her AFib/RVR. TSH okay. Cortisol elevated but infection causing a stress response. BCx from 07/09/2024 growing pasteurella multocida in all 4 bottles. Source is probably her dog licking her leg wounds. Repeat blood cultures 07/12/2024 are negative Patient initially treated with the IV cefepime and Flagyl, now switched to oral Augmentin and doxycycline to complete a course Midodrine added. Weaned off phenylephrine WBC normal. Completed 10days of Augmentin. Continue doxycycline Continue current wound care treatment (2) Atrial fibrillation with rapid ventricular response: Code(s): I48.91 - Unspecified atrial fibrillation Status: Acute Assessment and Plan: Patient has a history of paroxysmal atrial fibrillation. Unclear if she is been in and out of AFib Echo as mentioned below Patient is noncompliant with Xarelto and admits to stopping Xarelto for 4-5 days at a time due to bruising. Xarelto resumed here. Started on Diltiazem IV drip but BP became soft so phenylephrine started. Heart rate became better controlled. Switched to oral diltiazem and tolerating this well. Beta-royer added Cardiology following and appreciate their input. HR well controlled unless she is exerting herself Xarelto held due to low HH. Monitor Hgb, HR and BP (3) Anemia: Code(s): D64.9 - Anemia, unspecified Status: Acute Assessment and Plan: Baseline hemoglobin is 11-13. Hemoglobin 11.2 on admission Hgb initially stable but has drifted down to the 9-10 range. Over the past 3-4 days, Hgb dropped to 9.3->8.3->7.1 today Anemia of chronic disease. B12/folate normal. Stool guaiac pending Repeat Hgb low but stable. May be mobilizing fluids with albumin and increased activity. Follow closely with serial HH. Holding Xarelto. Lasix added to try to improve fluid status. (4) Bilateral lower leg cellulitis: Code(s): L03.116 - Cellulitis of left lower limb; L03.115 - Cellulitis of right lower limb Status: Acute Assessment and Plan: LE venous doppler showing no thrombosed vessels but exam incomplete due to her size. Wound care consulted. Edema possibly related to right sided failure with moderate TR, PASP 43mmHg and mildly dilated RV size but normal RV function. Continue antibiotics and wound care treatment. 07/16/2024: Patient given Lasix 40 mg IV x1 dose and started on Lasix 20 mg IV b.i.d. through 07/21. IV albumin added at this time. Not on diuretics at home Echo repeated 07/20/2024 with moderate to severe TR and MR, PASP 50 mm Hg Refused apnea link testing. Albumin stopped. Started Lasix (5) Hyponatremia: Code(s): E87.1 - Hypo-osmolality and hyponatremia Status: Acute Assessment and Plan: Sodium 128 on admission. Probably related to dehydration given the elevated renal function. She was fluid resuscitated and she remains fluid positive. Was on sodium chloride tablets but now stopped Sodium better at 136 Follow-up closely with Nephrology (6) Acute kidney injury: Code(s): N17.9 - Acute kidney failure, unspecified Status: Acute Assessment and Plan: Patient has normal baseline renal function. BUN 48 and creatinine 1.5 on admission. Probably related to ATN from sepsis/HoTN and/or prerenal from dehydration although she has been eating well, not on diuretics and denies n/v/d. Urine Eos negative. Urine Na <5 with FEN
[2024-07-23 18:33] LABS: Hematocrit 23.4 % (37.0-47.0); Hemoglobin 7.4 g/dL (12.0-15.0)
[2024-07-23] MEDS: ONDANSETRON INJ 4 MG/2 ML VIAL IV PUSH (22:12)
[2024-07-24] VITALS (11 sets, daily range): BP systolic 96–101; BP diastolic 52–65; PULSE 61–88; RESP 12–20; TEMP 36.6–36.8; O2SAT 95–100
[2024-07-24 05:45] LABS: Hematocrit 22.5 % (37.0-47.0); Immature Platelet Fraction Pct 1.9 % (0.9-11.2); Mean Corpuscular HGB Conc 31.1 g/dl (32-36); Mean Corpuscular Hemoglobin 30.4 pg (26-34); Mean Corpuscular Volume 97.8 fl (80-100); Mean Platelet Volume 12.7 fl (7.4-10.4); Platelet Count Result 415 k/mm3 (150-375); White Blood Count 8.4 K/mm3 (4.5-10.0)
[2024-07-24] MEDS: CENTRAL LINE FLUSH 10 ML IV PUSH ×3 (05:57→21:07)
[2024-07-24 06:01] LABS: Anion Gap 8 mmol/L (4-12); Blood Urea Nitrogen 34 mg/dL (7-17); Calcium 8.9 mg/dL (8.4-10.2); Carbon Dioxide 28 mmol/L (22-30); Chloride 99 mmol/L (98-107); Estimated CRCL calculation 93 ml/min; Estimated Glomerular Filt Rate > 60; Glucose 91 mg/dL (65-110); Potassium 4.1 mmol/L (3.4-5.0); Sodium 135 mmol/L (137-145)
[2024-07-24] MEDS: dilTIAZem HCL CD 120 MG CAP.24HR PO (09:54)
[2024-07-24] MEDS: METOPROLOL TARTRATE 25 MG TABLET PO ×2 (09:54→21:06)
[2024-07-24] MEDS: DOXYCYCLINE HYCLATE 100 MG TABLET PO (09:54)
[2024-07-24] MEDS: MIDODRINE HCL 10 MG TABLET PO ×3 (09:54→17:18)
[2024-07-24] MEDS: FUROSEMIDE 20 MG TABLET PO ×2 (09:55→17:18)
[2024-07-24] MEDS: MULTIVITAMINS /C LUTEIN (CENTRUM SILVER) TABLET *BKC 1 TAB PO (12:50)
[2024-07-24] MEDS: MAGNESIUM OXIDE 400 MG TABLET PO (12:50)
--- NOTE | 2024-07-24 13:01 | PM.IMPN ---
Progress Note: A&P Assessment and Plan (1) Septic shock: Code(s): A41.9 - Sepsis, unspecified organism; R65.21 - Severe sepsis with septic shock Status: Acute Assessment and Plan: Patient presents with symptoms of bilateral lower extremity cellulitis. Patient with septic shock noted by fever, low blood pressure, tachycardia, leukocytosis, and lactic acidosis. Consider also cardiogenic shock from severe tachycardia. Blood pressure has improved with IV fluids and phenylephrine. This was complicated by patient being on diltiazem for her AFib/RVR. TSH okay. Cortisol elevated but infection causing a stress response. BCx from 07/09/2024 growing pasteurella multocida in all 4 bottles. Source is probably her dog licking her leg wounds. Repeat blood cultures 07/12/2024 are negative Patient initially treated with the IV cefepime and Flagyl, now switched to oral Augmentin and doxycycline to complete a course Midodrine added. Weaned off phenylephrine WBC normal. Completed 10days of Augmentin and doxycycline. Abx stopped 07/24 Continue current wound care treatment (2) Atrial fibrillation with rapid ventricular response: Code(s): I48.91 - Unspecified atrial fibrillation Status: Acute Assessment and Plan: Patient has a history of paroxysmal atrial fibrillation. Unclear if she is been in and out of AFib Echo as mentioned below Patient is noncompliant with Xarelto and admits to stopping Xarelto for 4-5 days at a time due to bruising. Xarelto was resumed here. Started on Diltiazem IV drip but BP became soft so phenylephrine started. Heart rate became better controlled. Switched to oral diltiazem and tolerating this well. Beta-royer added Cardiology following and appreciate their input. HR well controlled unless she is exerting herself Xarelto held due to low HH. Monitor Hgb, HR and BP (3) Anemia: Code(s): D64.9 - Anemia, unspecified Status: Acute Assessment and Plan: Baseline hemoglobin is 11-13. Hemoglobin 11.2 on admission Hgb initially stable but has drifted down to the 9-10 range. Over the past 3-4 days, Hgb dropped to 9.3->8.3->7 range Anemia of chronic disease. B12/folate normal. Stool guaiac pending Repeat Hgb low but stable. No schistocytes seen. Elevated TBili noted. May be mobilizing fluids with albumin and increased activity. Follow closely with serial HH. Holding Xarelto. Lasix added to try to improve fluid status. Transfuse 1U PRBC (has Ab so consider low grade hemolysis). Heme consult (4) Bilateral lower leg cellulitis: Code(s): L03.116 - Cellulitis of left lower limb; L03.115 - Cellulitis of right lower limb Status: Acute Assessment and Plan: LE venous doppler showing no thrombosed vessels but exam incomplete due to her size. Wound care consulted. Edema possibly related to right sided failure with moderate TR, PASP 43mmHg and mildly dilated RV size but normal RV function. Continue antibiotics and wound care treatment. 07/16/2024: Patient given Lasix 40 mg IV x1 dose and started on Lasix 20 mg IV b.i.d. through 07/21. IV albumin added at this time. Not on diuretics at home Echo repeated 07/20/2024 with EF 55-60%, moderate to severe TR and MR, PASP 50 mm Hg completed abx 07/24 Refused apnea link testing. Albumin stopped. Started Lasix to improve fluid status (5) Hyponatremia: Code(s): E87.1 - Hypo-osmolality and hyponatremia Status: Acute Assessment and Plan: Sodium 128 on admission. Probably related to dehydration given the elevated renal function. She was fluid resuscitated and she remains fluid positive. Was on sodium chloride tablets but now stopped Sodium better at 135 Follow-up closely with Nephrology (6) Acute kidney injury: Code(s): N17.9 - Acute kidney failure, unspecified Status: Acute Assessment and Plan: Patient has normal baseline renal function. BUN 48 and creatinine 1.5 on admission
[2024-07-24 13:19] LABS: Lactate Dehydrogenase 120 U/L (120-246)
[2024-07-24 13:36] LABS: Immature Reticulocyte Fraction 35.5 % (3.0-15.9); Reticulocyte Hemoglobin Conten 33.7 pg (28.2-36.6); Reticulocyte Percent 3.71 % (0.7-4.3); Reticulocytes Absolute 0.08 10^6/uL (0.02-0.10)
--- NOTE | 2024-07-24 14:27 | PC.NURSE ---
attempted to call hematology consult, on-call list has open noted, not sure if they are accepting consults today, message left for office to call me back
--- NOTE | 2024-07-24 18:05 | PDONCCN ---
HPI - Date of Consult Date/Time: 07/24/24 18:05 Requesting Physician: Jeremiah Hall MD Primary Care Provider: Yuri Lugo MD - Consult Narrative Reason for consult: Anemia. Narrative: Pili Forrester is a 63 year old female with history of cervical cancer, lymphedema, morbid obesity and atrial fibrillation came into the hospital with bilateral lower extremity swelling and infection. Hemoglobin on admission was 11.2 now dropped down to 7.0. She denies any bleeding . She denies any previous history of stomach surgery. Patient was admitted to the hospital with severe sepsis and septic shock. Patient received antibiotic with cefepime and fragile and subsequently switched to Augmentin and doxycycline. Xarelto was placed on hold due to anemia. Direct David test came back positive. Immature reticulocyte fraction was elevated at 35.5. Indirect bilirubin was elevated at 0.3. Iron was 31 with saturation of 17%. B12 was 331. LDH was normal at 120. Creatinine was normal at 0.7. Doppler study showed no evidence of DVT. 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 Moderate tricuspid valve regurgitation Morbid obesity with BMI of 60.0-69.9, adult Paroxysmal atrial fibrillation Severe mitral valve regurgitation Surgical History: Surgical History (Last Reviewed 07/20/24 @ 10:47 by LEANN Kay) History of foot surgery Bilateral foot surgery when she was young History of total abdominal hysterectomy and bilateral salpingo-oophorectomy Onset Date: 2011 Family History: Family History (Last Reviewed 07/20/24 @ 10:47 by LEANN Kay) Mother CKD (chronic kidney disease), Onset Age: 18 Glomerular nephritis Father Lung cancer Sibling Non-Hodgkin lymphoma Recurrent kidney stones - Social History Social History: Social History (Last Reviewed 07/20/24 @ 10:47 by LEANN Kay) Alcohol Use: Alcohol intake: former Substance Use: Substance use: never Others: 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: No Smoking Status: Smoking status: Never smoker Second hand tobacco smoke exposure: No Social Determinants of Health: Do You Feel Safe in your Home?: Yes Has the Lack of Transportation Kept You From Medical Appointments or From Getting Medications?: No Within the Past 12 Months, Were You Worried Whether Your Food Would Run Out Before You Got Money to Buy More?: Never True What is Your Housing Situation Today?: I Have Housing Are You Worried That in the Next 2 Months, You May Not Have Your Own Housing to Live In?: No Do You Have Trouble Paying Your Heating Or Electricity Bill?: No Do You Have Trouble Paying For Medicines?: No Are You Currently Unemployed and Looking for Work?: No Highest Level of Education Completed: Master's Degree or Higher Do You Have Trouble With Childcare or the Care of a Family Member?: No Exam - Vital Signs Vital Signs - 24 hr 07/23/24 19:28 07/23/24 20:37 07/23/24 20:30 Temperature 37.0 C Pulse Rate 88 94 94 Respiratory Rate 20 20 Blood Pressure 101/69 Pulse Oximetry 99 99 Oxygen Delivery Room Air 07/23/24 20:00 07/24/24 00:04 07/24/24 04:00 Temperature Pulse Rate 95 86 86 Respiratory Rate Blood Pressure Pulse Oximetry Oxygen Delivery 07/24/24 06:00 07/24/24 09:54 07/24/24 08:20 Temperature 36.8 C Pulse Rate 85 80 Respiratory Rate 20 Blood Pressure 101/53 L Pulse Oximetry 95 Oxygen Delivery Room Air 07/24/24 14:00 07/24/24 08:00 07/24/24 12:00 Temperature 36.6 C Pulse Rate 74 88 83 Respiratory Rate 12 Bl
[2024-07-24] MEDS: IRON SUCROSE COMPLEX 400 MG, IRON SUCROSE COMPLEX 100 MG in SODIUM CHLORIDE 0.9% IV 250 ML 78.57 MG IVPB (18:41)
[2024-07-25] VITALS (16 sets, daily range): BP systolic 95–132; BP diastolic 56–75; PULSE 65–94; RESP 12–16; TEMP 36.1–36.8; O2SAT 97–100
[2024-07-25 06:16] LABS: Basophils Absolute Auto 0.1 K/mm3 (0.0-0.1); Basophils Percent Auto 1.5 % (0.2-1.2); Eosinophils Absolute Auto 0.2 K/mm3 (0-0.3); Hematocrit 22.4 % (37.0-47.0); Hemoglobin 7.1 g/dL (12.0-15.0); Immature Granulocyte Absolute 0.06 K/mm3 (0.00-0.031); Immature Granulocyte Percent A 0.8 % (0-0.5); Lymphocytes Absolute Auto 0.98 K/mm3 (0.9-3.2); Lymphocytes Percent Auto 13.2 % (18.3-44.2); Mean Corpuscular HGB Conc 31.7 g/dl (32-36); Mean Corpuscular Hemoglobin 30.9 pg (26-34); Mean Corpuscular Volume 97.4 fl (80-100); Mean Platelet Volume 9.4 fl (7.4-10.4); Monocytes Absolute Auto 0.8 K/mm3 (0.1-0.6); Monocytes Percent Auto 11.2 % (2.6-8.5); Neutrophils Absolute Auto 5.3 K/mm3 (1.3-6.7); Neutrophils Percent Auto 71.3 % (45.5-73.1); Platelet Count Result 341 k/mm3 (150-375); Red Cell Distribution Width 17.2 % (11.5-14.5); White Blood Count 7.4 K/mm3 (4.5-10.0)
[2024-07-25 06:27] LABS: Anion Gap 6 mmol/L (4-12); Blood Urea Nitrogen 31 mg/dL (7-17); Calcium 8.8 mg/dL (8.4-10.2); Carbon Dioxide 29 mmol/L (22-30); Chloride 102 mmol/L (98-107); Estimated CRCL calculation 83 ml/min; Estimated Glomerular Filt Rate > 60; Glucose 91 mg/dL (65-110); Potassium 4.1 mmol/L (3.4-5.0); Sodium 137 mmol/L (137-145)
[2024-07-25] MEDS: CENTRAL LINE FLUSH 10 ML IV PUSH ×3 (06:41→22:07)
[2024-07-25] MEDS: CENTRAL LINE FLUSH 20 ML IV PUSH (06:41)
[2024-07-25] MEDS: MIDODRINE HCL 10 MG TABLET PO ×3 (09:02→17:01)
[2024-07-25] MEDS: dilTIAZem HCL CD 120 MG CAP.24HR PO (09:02)
[2024-07-25] MEDS: METOPROLOL TARTRATE 25 MG TABLET PO ×2 (09:02→22:07)
[2024-07-25] MEDS: CYANOCOBALAMIN INJ 1,000 MCG/ML VIAL 1000 MCG IM (09:03)
[2024-07-25] MEDS: polyethylene glycoL 3350 17 GM POWD.PACK PO (09:03)
[2024-07-25] MEDS: SODIUM CHLORIDE 0.9% IV 250 ML 30 ML IV CONT (11:30)
[2024-07-25] MEDS: MULTIVITAMINS /C LUTEIN (CENTRUM SILVER) TABLET *BKC 1 TAB PO (13:03)
[2024-07-25] MEDS: MAGNESIUM OXIDE 400 MG TABLET PO (13:03)
[2024-07-25] MEDS: FUROSEMIDE 20 MG TABLET PO (17:01)
[2024-07-25] MEDS: FERROUS SULFATE 325 MG TABLET DR 650 MG PO (17:01)
[2024-07-25] MEDS: RIVAROXABAN 10 MG TABLET PO (17:02)
[2024-07-25 17:26] LABS: Hematocrit 25.5 % (37.0-47.0); Hemoglobin 8.1 g/dL (12.0-15.0)
--- NOTE | 2024-07-25 18:59 | PM.IMPN ---
Progress Note: A&P Assessment and Plan (1) Septic shock: Code(s): A41.9 - Sepsis, unspecified organism; R65.21 - Severe sepsis with septic shock Status: Acute Assessment and Plan: Patient presents with symptoms of bilateral lower extremity cellulitis. Patient with septic shock noted by fever, low blood pressure, tachycardia, leukocytosis, and lactic acidosis. Consider also cardiogenic shock from severe tachycardia. Blood pressure has improved with IV fluids and phenylephrine. This was complicated by patient being on diltiazem for her AFib/RVR. TSH okay. Cortisol elevated but infection causing a stress response. BCx from 07/09/2024 growing pasteurella multocida in all 4 bottles. Source is probably her dog licking her leg wounds. Repeat blood cultures 07/12/2024 are negative Patient initially treated with the IV cefepime and Flagyl, now switched to oral Augmentin and doxycycline to complete a course Midodrine added. Weaned off phenylephrine WBC normal. Completed 10days of Augmentin and doxycycline. Abx stopped 07/24 Continue current wound care treatment (2) Atrial fibrillation with rapid ventricular response: Code(s): I48.91 - Unspecified atrial fibrillation Status: Acute Assessment and Plan: Patient has a history of paroxysmal atrial fibrillation. Unclear if she is been in and out of AFib Echo as mentioned below Patient is noncompliant with Xarelto and admits to stopping Xarelto for 4-5 days at a time due to bruising. Xarelto was resumed here. Started on Diltiazem IV drip but BP became soft so phenylephrine started. Heart rate became better controlled. Switched to oral diltiazem and tolerating this well. Beta-royer added Cardiology following and appreciate their input. HR well controlled unless she is exerting herself Xarelto held due to low HH but felt okay to resume by hematology at half the dose. If she tolerates, then advance to full dose of Xarelto. Monitor Hgb, HR and BP (3) Anemia: Code(s): D64.9 - Anemia, unspecified Status: Acute Assessment and Plan: Baseline hemoglobin is 11-13. Hemoglobin 11.2 on admission Hgb initially stable but has drifted down to the 9-10 range. Over the span of 3-4 days, Hgb dropped to 9.3->8.3->7 range Anemia of chronic disease. B12/folate normal. Stool guaiac pending Repeat Hgb low but stable. No schistocytes seen. Elevated TBili noted. Heme consult when discovered to have positive David. [place] she has low grade hemolysis. Xarerlto held and she was transfused 1U PRBC today Follow closely with serial HH. Resuming Xarelto at lower dose. Discussed. Home if HH stable. (4) Bilateral lower leg cellulitis: Code(s): L03.116 - Cellulitis of left lower limb; L03.115 - Cellulitis of right lower limb Status: Acute Assessment and Plan: LE venous doppler showing no thrombosed vessels but exam incomplete due to her size. Wound care consulted. Edema possibly related to right sided failure with moderate TR, PASP 43mmHg and mildly dilated RV size but normal RV function. Continue antibiotics and wound care treatment. 07/16/2024: Patient given Lasix 40 mg IV x1 dose and started on Lasix 20 mg IV b.i.d. through 07/21. IV albumin added at this time. Not on diuretics at home Echo repeated 07/20/2024 with EF 55-60%, moderate to severe TR and MR, PASP 50 mm Hg completed abx 07/24 Refused apnea link testing. Albumin stopped. Started Lasix to improve fluid status (5) Hyponatremia: Code(s): E87.1 - Hypo-osmolality and hyponatremia Status: Acute Assessment and Plan: Sodium 128 on admission. Probably related to dehydration given the elevated renal function. She was fluid resuscitated and she remains fluid positive. Was on sodium chloride tablets but now stopped Sodium better at 137 Follow-up closely with Nephrology (6) Acute kidney injury: Code(s): N17.9 - Acute kidney failure, unspecified St
[2024-07-26] VITALS (8 sets, daily range): BP systolic 96–117; BP diastolic 62–66; PULSE 83–93; RESP 12–18; TEMP 36.5–36.8; O2SAT 99–100
[2024-07-26 06:43] LABS: Hematocrit 25.9 % (37.0-47.0); Hemoglobin 7.9 g/dL (12.0-15.0); Mean Corpuscular HGB Conc 30.5 g/dl (32-36); Mean Corpuscular Hemoglobin 29.7 pg (26-34); Mean Corpuscular Volume 97.4 fl (80-100); Mean Platelet Volume 10.8 fl (7.4-10.4); Platelet Count Result 279 k/mm3 (150-375); Red Blood Count 2.66 M/mm3 (4.2-5.4); White Blood Count 8.2 K/mm3 (4.5-10.0)
[2024-07-26] MEDS: METOPROLOL TARTRATE 25 MG TABLET PO (09:43)
[2024-07-26] MEDS: FERROUS SULFATE 325 MG TABLET DR 650 MG PO (09:43)
[2024-07-26] MEDS: MIDODRINE HCL 10 MG TABLET PO ×2 (09:43→12:28)
[2024-07-26] MEDS: FUROSEMIDE 20 MG TABLET PO (09:44)
[2024-07-26] MEDS: CYANOCOBALAMIN 1,000 MCG TABLET 1000 MCG PO (09:46)
[2024-07-26] MEDS: CYANOCOBALAMIN INJ 1,000 MCG/ML VIAL 1000 MCG IM (09:46)
--- NOTE | 2024-07-26 09:54 | PM.DS ---
DS: Admitting Diagnosis Discharge Date 07/26/24 Admitting Diagnosis Concern for lower extremity infection DS: Discharge Diagnosis Discharge Diagnosis (1) Septic shock: Code(s): A41.9 - Sepsis, unspecified organism; R65.21 - Severe sepsis with septic shock Status: Acute (2) Atrial fibrillation with rapid ventricular response: Code(s): I48.91 - Unspecified atrial fibrillation Status: Acute (3) Anemia: Code(s): D64.9 - Anemia, unspecified Status: Acute (4) Bilateral lower leg cellulitis: Code(s): L03.116 - Cellulitis of left lower limb; L03.115 - Cellulitis of right lower limb Status: Acute (5) Hyponatremia: Code(s): E87.1 - Hypo-osmolality and hyponatremia Status: Acute (6) Acute kidney injury: Code(s): N17.9 - Acute kidney failure, unspecified Status: Acute (7) Nonrheumatic mitral valve regurgitation: Code(s): I34.0 - Nonrheumatic mitral (valve) insufficiency Status: Acute (8) Morbid obesity: Code(s): E66.01 - Morbid (severe) obesity due to excess calories Status: Acute (9) Abnormal finding on urinalysis: Code(s): R82.90 - Unspecified abnormal findings in urine Status: Acute DS: Summary Hospital Course Reason for hospitalization: 63yo female with hx of cervical CA, lymphedema, morbid obesity and pAFib with severe MR here for concern for lower extremity infection. Please see H&P for details. Hospital Course: The following issues were addressed: (1) Septic shock: Patient presented with symptoms of bilateral lower extremity cellulitis. Patient with septic shock noted by fever, low blood pressure, tachycardia, leukocytosis, and lactic acidosis. Consider also cardiogenic shock from severe tachycardia. Blood pressure improved with IV fluids and phenylephrine. This was complicated by patient being on diltiazem for her AFib/RVR. TSH okay. Cortisol elevated but infection causing a stress response. BCx from 07/09/2024 grew pasteurella multocida in all 4 bottles. Source is probably her dog licking her leg wounds. Repeat blood cultures 07/12/2024 are negative. Patient initially treated with the IV cefepime and Flagyl but switched to oral Augmentin and doxycycline and completed a course. Abx stopped 07/24. Midodrine added. Weaned off phenylephrine. WBC normalized. Wound RN consulted and routine wound care started. (2) Atrial fibrillation with rapid ventricular response: Patient has a history of paroxysmal atrial fibrillation. Unclear if she has been in and out of AFib. Echo as mentioned below. Patient is noncompliant with Xarelto and admits to stopping Xarelto for 4-5 days at a time due to bruising. Xarelto 20mg was resumed here. She was started on Diltiazem IV drip but BP became soft so phenylephrine started. Heart rate became better controlled. Switched to oral diltiazem and tolerated this well. Beta-royer added for better heart rate control. Cardiology followed and appreciate their input. HR is now well controlled unless she is exerting herself. Xarelto held due to low HH and possible hemolysis but felt okay to resume by hematology at half the dose so Xarelto 10mg resumed. Hgb remained low but stable. Advance to full dose Xarelto if Hgb remains stable. (3) Anemia: Baseline hemoglobin is 11-13. Hemoglobin 11.2 on admission. Hgb initially stable but drifted down to the 9-10 range. Over the span of 3-4 days, Hgb dropped to 9.3->8.3->7 range. Direct David test was also positive. There was no schistocytes on the peripheral smear. Iron was low at 31, TIBC low at 185 with low iron saturation of 17%. Ferritin 156. Vitamin B12 was also low at 331. Stool guaiac unable to be collected. Repeat Hgb low but stable. Elevated TBili noted but more chronic. Hematology consulted when discovered to have positive David. Anemia felt to be multifactorial secondary to autoimmune hemolytic anemia, iron and vitamin B12 deficiency,
[2024-07-26] MEDS: dilTIAZem HCL CD 120 MG CAP.24HR PO (10:27)
[2024-07-26] MEDS: MAGNESIUM OXIDE 400 MG TABLET PO (12:28)
[2024-07-26] MEDS: MULTIVITAMINS /C LUTEIN (CENTRUM SILVER) TABLET *BKC 1 TAB PO (12:28)
[2024-07-27 10:09] LABS: Haptoglobin 242 mg/dL (43-212)
--- NOTE | 2024-08-05 08:56 | PC.NURSE ---
Haptoglobin elevated at 242. (43-212). Results given to Dr. Salter and faxed to Dr. Lugo.
== END 2024-07-26 16:00 | disposition home health service (06) | DRG 871 ==
LOC: ANHED 23:21 → ANHICU 07-10 02:20 → ANHIMU 07-14 23:33 → ANH2MED 07-15 17:52
PROVIDERS: Family Medicine; Internal Medicine; Internal Medicine Nephrology; Admitting Provider Internal Medicine; Emergency Provider Emergency Medicine; PCP Family Medicine; Visit Provider Internal Medicine
DX: A41.9 Sepsis, unspecified organism (principal); I50.33 Acute on chronic diastolic (congestive) heart failure; N17.0 Acute kidney failure with tubular necrosis; R65.21 Severe sepsis with septic shock; L03.116 Cellulitis of left lower limb; L03.115 Cellulitis of right lower limb; E87.1 Hypo-osmolality and hyponatremia; Z68.43 Body mass index [BMI] 50.0-59.9, adult; D59.10 Autoimmune hemolytic anemia, unspecified; I48.20 Chronic atrial fibrillation, unspecified; L97.929 Non-pressure chronic ulcer of unspecified part of left lower leg with unspecified severity; L97.919 Non-pressure chronic ulcer of unspecified part of right lower leg with unspecified severity; I34.0 Nonrheumatic mitral (valve) insufficiency; E66.01 Morbid (severe) obesity due to excess calories; E03.9 Hypothyroidism, unspecified; D72.829 Elevated white blood cell count, unspecified; D63.8 Anemia in other chronic diseases classified elsewhere; D50.9 Iron deficiency anemia, unspecified; D51.9 Vitamin B12 deficiency anemia, unspecified; E86.0 Dehydration; Z85.41 Personal history of malignant neoplasm of cervix uteri; Z90.710 Acquired absence of both cervix and uterus; Z90.722 Acquired absence of ovaries, bilateral; Z91.148 Patient's other noncompliance with medication regimen for other reason
CPT/HCPCS: 36415; 36430; 36569; 71045; 73590; 76705; 76775; 80048; 80053; 80069; 80202; 81001; 81479; 82247; 82248; 82533; 82550; 82570; 82607; 82728; 82746; 83010; 83540; 83550; 83605; 83615; 83690; 83735; 84100; 84133; 84145; 84156; 84300; 84439; 84443; 84480; 84484; 85014; 85018; 85025; 85027; 85046; 85055; 85610; 85652; 85730; 85999; 86140; 86850; 86880; 86900; 86901; 86922; 87040; 87077; 87086; 87088; 87637; 87641; 93005; 93306; 93970; 96361; 96365; 96366; 96367; 96375; 97110; 97162; 97166; 97530; 97535; 99285; A9270; G0378; J0692; J1160; J1756; J1836; J1940; J2371; J2405; J2997; J3370; J3420; J3475; J7030; J7050; J7060; P9016; P9047

== ENCOUNTER 2024-07-27 13:32 | Observation (INO) | payer MEDICARE, SELFPAY ==
[2024-07-27 13:34] VITALS: BP 103/70; PULSE 96; RESP 17; TEMP 36.4; O2SAT 100
--- NOTE | 2024-07-27 13:42 | PC.NURSE ---
Called care coordination at this time with notification of patients living concerns
--- NOTE | 2024-07-27 14:08 | ED.WEAKNESS ---
HPI - Weakness General Chief complaint: Weakness Stated complaint: weakness Time Seen by Provider: 07/27/24 14:01 History of Present Illness HPI Narrative: Pt presetns with generalized weakness and inability to stand up and walk since being discharged from hospital yesterday after being admitted with sepsis. Pt says Home mima was set up but she is just not able to get around and walk and care for herself at home. Pt denies fever or cough. Pt says her legs are weeping a bit but actually look pretty good for her. Related Data Home Medications Medication Instructions Recorded Confirmed multivit with minerals-iron 18 1 tablet PO DAILY 02/09/24 07/11/24 mg-folic ac 400 mcg-vit K 25 mcg tablet (Adults Multivitamin) Allergies Allergy/AdvReac Type Severity Reaction Status Date / Time codeine Allergy Unknown Other Verified 06/19/24 14:21 diazepam Allergy Unknown Other Verified 06/19/24 14:21 Review of Systems Review of Systems: All systems reviewed & are unremarkable except as noted in HPI and below PMFSH Past Medical History Medical History (Updated 07/27/24 @ 17:08 by Leonor Garcia PA-C) Cervical cancer (2011) Chronic anticoagulation Iron deficiency anemia 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 Moderate tricuspid valve regurgitation Morbid obesity with BMI of 60.0-69.9, adult Paroxysmal atrial fibrillation Severe mitral valve regurgitation Surgical History Surgical History History of foot surgery Bilateral foot surgery when she was young History of total abdominal hysterectomy and bilateral salpingo-oophorectomy (2011) Family History Family History Mother CKD (chronic kidney disease), Onset Age: 18 Glomerular nephritis Father Lung cancer Sibling Non-Hodgkin lymphoma Recurrent kidney stones Social History Social History (Updated 07/27/24 @ 17:02 by Leonor Garcia PA-C) Social History: Surrogate medical decision maker: Kishan Forrester, brother. Code status: Full Code. Smoking status: Never smoker Second hand tobacco smoke exposure: No Alcohol intake: former Substance use: never Do You Feel Safe in your Home?: Yes Lack of Transportation: No Lack of Food: Never True Current Housing: I Have Housing Concerned About Future Housing: No Difficulty Paying Gas/Electric Bills: No Difficulty Paying for Meds: No Currently Unemployed: No Education: Master's Degree or Higher Difficulty w/ Childcare or Family Care: No Additional living arrangements comments: Lives in her own home in [place] with her boxer named Dana. No children. 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: No Exam Const: General: healthy appearing and no acute distress Nutritional Appearance: well nourished Orientation/consciousness: patient oriented x3 Limitations: no limitations Resp: Effort & Inspection: normal respiratory effort Auscultation: clear to auscultation bilaterally Cardio: Rate: regular rate Rhythm: regular rhythm GI: GI Palp: Yes Soft to palpation and No Tenderness to palpation present (GI) Skin: Other: erythematous b/l LE with some clear oozing and significant edema Neuro: General: patient oriented x3, moves all extremities and no focal motor deficits Speech: normal speech Extrem: General: edema Psych: Mental Status: mental status grossly normal Affect: normal affect Attitude: cooperative Course Vital Signs Vital signs: Vital Signs Temperature 97.5 F L 07/27/24 13:34 Pulse Rate 96 07/27/24 13:34 Respiratory Rate 17 07/27/24 13:34 Blood Pressure 103/70 07/27/24 13:34 Pulse Oximetry 100 07/27/24 13:34 Oxygen Delivery Room Air 07/27/24 13:34 Temperature 97.7 F 07/27/24 16:13 Pulse Rate 66 07/27/24 16:13 Respiratory Rate 20
--- NOTE | 2024-07-27 16:00 | PCCCNOTE ---
community coordinator called to the ED to speak with pt regarding placement. Pt was discharged home yesterday and felt more weak after being home. She will be admitted for placement, as her insurance requires an authorization for placement. Pt understands this. I spoke with Janneth at [facility] regarding pt going to [facility], (this was where she was going to go, prior to deciding to go home). Janneth is aware that pt is going to be admitted for placement, she will follow up tomorrow.
[2024-07-27 16:13] VITALS: BP 106/62; PULSE 66; RESP 20; TEMP 36.5; O2SAT 100
--- NOTE | 2024-07-27 17:00 | PM.IMHP ---
H&P: HPI History of Present Illness Date/Time: 07/27/24 17:00 Chief Complaint: Weakness. Narrative: This is a pleasant 63-year-old female with morbid obesity, paroxysmal atrial fibrillation on anticoagulation, suspected obstructive sleep apnea, and cervical cancer in 2011 who presented to the emergency department via EMS from home with weakness. The patient provides the following history. She was discharged from the hospital yesterday after a nearly 2 week stay in which she was treated for septic shock related to cellulitis, rapid atrial fibrillation, acute kidney injury, and hyponatremia. It was felt by multiple providers that patient would benefit from skilled placement but she declined and wished to return home. Her brother had to help her out at home lost night because she was so weak and this morning she was unable to get herself off the couch into the toilet. She has changed her mind and thinks that she does need rehab to help gain her strength back. She is otherwise feeling okay and denies fever, chills, sweats, focal weakness, paresthesias, chest pain, shortness a breath, cough, nausea, vomiting, diarrhea, and dysuria. Vital signs were stable on arrival and her labs are stable as well. Review of Systems Review of Systems: 12 systems were reviewed and are negative except for as per HPI. [facility] Past Medical History Medical History Cervical cancer (2011) Chronic anticoagulation Iron deficiency anemia 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 Moderate tricuspid valve regurgitation Morbid obesity with BMI of 60.0-69.9, adult Paroxysmal atrial fibrillation Severe mitral valve regurgitation Surgical History Surgical History History of foot surgery Bilateral foot surgery when she was young History of total abdominal hysterectomy and bilateral salpingo-oophorectomy (2011) Family History Family History Mother CKD (chronic kidney disease), Onset Age: 18 Glomerular nephritis Father Lung cancer Sibling Non-Hodgkin lymphoma Recurrent kidney stones Social History Social History Social History: Surrogate medical decision maker: Kishan Forrester, brother. Code status: Full Code. Smoking status: Never smoker Second hand tobacco smoke exposure: No Alcohol intake: former Substance use: never Substance use type: does not use Do You Feel Safe in your Home?: Yes Lack of Transportation: No Lack of Food: Never True Current Housing: I Have Housing Concerned About Future Housing: No Difficulty Paying Gas/Electric Bills: No Difficulty Paying for Meds: No Currently Unemployed: No Education: Master's Degree or Higher Difficulty w/ Childcare or Family Care: No Additional living arrangements comments: Lives in her own home in [place] with her boxer named Dana. No children. 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: No Meds Home Medications and Allergies Home Medications Medication Instructions Recorded Confirmed Type multivit with minerals-iron 18 1 tablet PO DAILY 02/09/24 07/27/24 History mg-folic ac 400 mcg-vit K 25 mcg tablet (Adults Multivitamin) metoprolol tartrate 25 mg tablet 25 mg PO Q12HR #60 tabs 02/12/24 07/27/24 Rx diltiazem HCl 120 mg 120 mg PO DAILY #60 caps 04/18/24 07/27/24 Rx capsule,extended release 24 hr (Cardizem CD) cyanocobalamin (vitamin B-12) 1,000 mcg PO QAM #30 tabs 07/26/24 07/27/24 Rx 1,000 mcg tablet (Vitamin B-12) furosemide 20 mg tablet 20 mg PO BID #60 tabs 07/26/24 07/27/24 Rx midodrine 10 mg tablet 10 mg PO TID #90 tabs 07/26/24 07/27/24 Rx rivaroxaban 20 mg tablet (Xarelto) 10 mg PO DAILY@1700 #30 tabs 07/26/24 07/27/24 Rx ferrous sulfa
[2024-07-27 17:07] LABS: Basophils Absolute Auto 0.1 K/mm3 (0.0-0.1); Basophils Percent Auto 0.8 % (0.2-1.2); Eosinophils Percent Auto 0.3 % (0-4.4); Hematocrit 25.1 % (37.0-47.0); Immature Granulocyte Absolute 0.05 K/mm3 (0.00-0.031); Immature Granulocyte Percent A 0.7 % (0-0.5); Lymphocytes Percent Auto 6.8 % (18.3-44.2); Mean Corpuscular HGB Conc 31.9 g/dl (32-36); Mean Corpuscular Hemoglobin 31.5 pg (26-34); Mean Corpuscular Volume 98.8 fl (80-100); Mean Platelet Volume 9.8 fl (7.4-10.4); Monocytes Absolute Auto 0.6 K/mm3 (0.1-0.6); Monocytes Percent Auto 7.6 % (2.6-8.5); Neutrophils Absolute Auto 6.2 K/mm3 (1.3-6.7); Neutrophils Percent Auto 83.8 % (45.5-73.1); Platelet Count Result 355 k/mm3 (150-375); Red Blood Count 2.54 M/mm3 (4.2-5.4); White Blood Count 7.4 K/mm3 (4.5-10.0)
[2024-07-27 17:18] LABS: INR 1.9; Partial Thromboplastin Time 31.8 Seconds (22.3-36.8); Prothrombin Time 22.2 Seconds (11.1-14.7)
[2024-07-27 17:18] LABS: Lactic Acid Reflex 2.1 mmol/L (0.7-2.0)
[2024-07-27 17:22] LABS: Alanine Aminotransferase 14 U/L (6-35); Albumin Level 3.5 g/dL (3.5-5.1); Alkaline Phosphatase 117 U/L (38-126); Anion Gap 6 mmol/L (4-12); Aspartate Amino Transferase 31 U/L (14-36); Bilirubin,Total 2.6 mg/dL (0.2-1.3); Blood Urea Nitrogen 29 mg/dL (7-17); CRP 5.7 mg/dL (<1.0); Calcium 8.8 mg/dL (8.4-10.2); Carbon Dioxide 30 mmol/L (22-30); Chloride 100 mmol/L (98-107); Estimated CRCL calculation 91 ml/min; Estimated Glomerular Filt Rate > 60; Glucose 88 mg/dL (65-110); Sodium 136 mmol/L (137-145)
[2024-07-27 19:15] VITALS: BP 113/68; PULSE 70; RESP 22; TEMP 36.5; O2SAT 99
[2024-07-27 19:41] VITALS: BMI 61.1
[2024-07-27 19:42] VITALS: BP 104/55; PULSE 82; RESP 20; TEMP 36.6; O2SAT 99
--- NOTE | 2024-07-27 19:42 | ADMGEN ---
This patient, Pili Forrester, was admitted to Medical Room 253-01. Patient/family oriented to hospital policies and general routines including ID bracelet, bed and alarms, visiting hours, pain management, procedures, bathroom and other care routines, personal items, smoking policy, room service/diet, and visiting hours. Information on how to activate the Rapid Response Team has been discussed. Patient/Family are encouraged to report perceived risks to care and to ask questions if they do not understand what they are told or what they should do.
[2024-07-27 20:02] LABS: Reflex Lactic Acid Yes or No Add Lactic
[2024-07-27 20:59] LABS: Lactic Acid 1.7 mmol/L (0.7-2.0)
[2024-07-28] VITALS (8 sets, daily range): BP systolic 92–115; BP diastolic 45–66; PULSE 68–104; RESP 16–20; TEMP 36.2–36.5; O2SAT 99–100
[2024-07-28 06:28] LABS: Hematocrit 25.3 % (37.0-47.0); Hemoglobin 7.8 g/dL (12.0-15.0); Mean Corpuscular HGB Conc 30.8 g/dl (32-36); Mean Corpuscular Hemoglobin 30.6 pg (26-34); Mean Corpuscular Volume 99.2 fl (80-100); Platelet Count Result 285 k/mm3 (150-375); Red Blood Count 2.55 M/mm3 (4.2-5.4); Red Cell Distribution Width 18.7 % (11.5-14.5); White Blood Count 6.3 K/mm3 (4.5-10.0)
[2024-07-28 06:43] LABS: Anion Gap 10 mmol/L (4-12); Blood Urea Nitrogen 28 mg/dL (7-17); Calcium 8.7 mg/dL (8.4-10.2); Carbon Dioxide 26 mmol/L (22-30); Chloride 100 mmol/L (98-107); Estimated CRCL calculation 99 ml/min; Estimated Glomerular Filt Rate > 60; Glucose 76 mg/dL (65-110); Magnesium 2.2 mg/dL (1.6-2.3); Potassium 3.8 mmol/L (3.4-5.0); Sodium 136 mmol/L (137-145)
--- NOTE | 2024-07-28 08:21 | PM.IMPN ---
Progress Note: A&P Assessment and Plan (1) Weakness: Code(s): R53.1 - Weakness Status: Acute Assessment and Plan: - bedrest order d/c- PT/OT ordered -working with care coordination on placement (2) Unable to care for self: Code(s): Z78.9 - Other specified health status Status: Acute (3) Morbid obesity with BMI of 60.0-69.9, adult: Code(s): E66.01 - Morbid (severe) obesity due to excess calories; Z68.44 - Body mass index [BMI] 60.0-69.9, adult Status: Chronic Assessment and Plan: life style modification - will need weight loss f/u as outpt (4) Paroxysmal atrial fibrillation: Code(s): I48.0 - Paroxysmal atrial fibrillation Status: Acute (5) Chronic anticoagulation: Code(s): Z79.01 - group home (current) use of anticoagulants Status: Acute (6) Atrial fibrillation with rapid ventricular response: Code(s): I48.91 - Unspecified atrial fibrillation Status: Acute Assessment and Plan: metoprolol, xarelto (7) Wounds, multiple: Code(s): T07.XXXA - Unspecified multiple injuries, initial encounter Status: Chronic Assessment and Plan: wound care consulted (8) Edema of both legs: Code(s): R60.0 - Localized edema Status: Acute Assessment and Plan: lasix bid Plan The patient presented to the emergency department for evaluation of weakness as per HPI. Labs, imaging, EKG, and all reports were personally reviewed. She was discharged from the hospital yesterday after 2 week stay and it was highly suggested to her that she go to rehab however she was adamant that she would be able to care for herself at home. Unfortunately she was not even able to get herself up of the couch today and realizes that she is going to need rehab to gain her strength back. Initiate fall precautions. PT/OT consulted. Care coordination consulted for placement. Vital signs were reviewed and they are stable. Labs are stable on review of previous labs. Time Spent With Patient Time with patient: Greater than 35 minutes Subjective Date/time seen: 07/28/24 08:21 Interval history: Weakness. Narrative retrieved from H/P: This is a pleasant 63-year-old female with morbid obesity, paroxysmal atrial fibrillation on anticoagulation, suspected obstructive sleep apnea, and cervical cancer in 2011 who presented to the emergency department via EMS from home with weakness. The patient provides the following history. She was discharged from the hospital yesterday after a nearly 2 week stay in which she was treated for septic shock related to cellulitis, rapid atrial fibrillation, acute kidney injury, and hyponatremia. It was felt by multiple providers that patient would benefit from skilled placement but she declined and wished to return home. Her brother had to help her out at home lost night because she was so weak and this morning she was unable to get herself off the couch into the toilet. She has changed her mind and thinks that she does need rehab to help gain her strength back. She is otherwise feeling okay and denies fever, chills, sweats, focal weakness, paresthesias, chest pain, shortness a breath, cough, nausea, vomiting, diarrhea, and dysuria. Vital signs were stable on arrival and her labs are stable as well. 07/28- pt is seen and examined today. she is pleasant and cooperative. Wants to get stronger so she can go home eventually. Denies any new or acute pain Review of Systems Review of Systems: 12 systems were reviewed and are negative except for as per HPI. Exam Narrative: General: Nontoxic-appearing female supine in bed in no acute distress. Weight: 151.6 kg. BMI: 61.1. HEENT: Normocephalic, atraumatic. PERRL, EOMI. Sclera anicteric. Oral mucosa moist. Crowded oropharynx. Neck: Supple. No obvious JVD but exam limited due to neck circumference. Respiratory: Respirations are nonlabored. Lung sounds are diminished but viraj
[2024-07-28] MEDS: MIDODRINE HCL 10 MG TABLET PO ×3 (08:39→17:31)
[2024-07-28] MEDS: CYANOCOBALAMIN 1,000 MCG TABLET 1000 MCG PO (08:39)
[2024-07-28] MEDS: FERROUS SULFATE 325 MG TABLET DR PO ×2 (08:39→17:31)
[2024-07-28] MEDS: FUROSEMIDE 20 MG TABLET PO ×2 (08:39→17:32)
[2024-07-28] MEDS: MULTIVITAMINS /C LUTEIN (CENTRUM SILVER) TABLET *BKC 1 TAB PO (08:39)
[2024-07-28] MEDS: dilTIAZem HCL CD 120 MG CAP.24HR PO (08:39)
[2024-07-28] MEDS: METOPROLOL TARTRATE 25 MG TABLET PO (09:16)
[2024-07-28] MEDS: ACETAMINOPHEN 325 MG TABLET 650 MG PO (12:30)
--- NOTE | 2024-07-28 13:44 | PC.NURSE ---
On 07/28/24, the student, [Van Seaman], provided care and completed [facility] documentation on this patient. I have reviewed the student's documentation and agree with the findings.
[2024-07-28] MEDS: RIVAROXABAN 10 MG TABLET PO (17:32)
[2024-07-29 07:00] VITALS: BP 98/60; PULSE 77; RESP 16; TEMP 36.7; O2SAT 98
[2024-07-29 08:08] LABS: Basophils Absolute Auto 0.1 K/mm3 (0.0-0.1); Basophils Percent Auto 1.1 % (0.2-1.2); Eosinophils Absolute Auto 0.2 K/mm3 (0-0.3); Eosinophils Percent Auto 4.5 % (0-4.4); Hematocrit 26.6 % (37.0-47.0); Hemoglobin 8.3 g/dL (12.0-15.0); Immature Granulocyte Absolute 0.05 K/mm3 (0.00-0.031); Immature Granulocyte Percent A 0.9 % (0-0.5); Lymphocytes Percent Auto 18.7 % (18.3-44.2); Mean Corpuscular HGB Conc 31.2 g/dl (32-36); Mean Corpuscular Hemoglobin 31.3 pg (26-34); Mean Corpuscular Volume 100.4 fl (80-100); Mean Platelet Volume 10.2 fl (7.4-10.4); Monocytes Absolute Auto 0.7 K/mm3 (0.1-0.6); Monocytes Percent Auto 13.6 % (2.6-8.5); Neutrophils Absolute Auto 3.3 K/mm3 (1.3-6.7); Neutrophils Percent Auto 61.2 % (45.5-73.1); Platelet Count Result 345 k/mm3 (150-375); Red Blood Count 2.65 M/mm3 (4.2-5.4); Red Cell Distribution Width 19.1 % (11.5-14.5); White Blood Count 5.4 K/mm3 (4.5-10.0)
--- NOTE | 2024-07-29 08:10 | PM.IMPN ---
Progress Note: A&P Assessment and Plan (1) Weakness: Code(s): R53.1 - Weakness Status: Acute Assessment and Plan: Patient was discharged from the hospital on 07/26 after 2 week stay and it was highly suggested to her that she go to rehab however she was adamant that she would be able to care for herself at home. Unfortunately she was unable to get herself up off the couch and realized that she is going to need rehab to gain her strength back. - PT/OT ordered - Initiate fall precautions. - working with care coordination on placement (2) Morbid obesity with BMI of 60.0-69.9, adult: Code(s): E66.01 - Morbid (severe) obesity due to excess calories; Z68.44 - Body mass index [BMI] 60.0-69.9, adult Status: Chronic Assessment and Plan: life style modification - will need weight loss f/u as outpt (3) Paroxysmal atrial fibrillation: Code(s): I48.0 - Paroxysmal atrial fibrillation Status: Acute Assessment and Plan: Chronic, rate controlled on metoprolol and anticoagulation with Xarelto. - Continue home medications - Monitor (4) Wounds, multiple: Code(s): T07.XXXA - Unspecified multiple injuries, initial encounter Status: Chronic Assessment and Plan: wound care consulted (5) Edema of both legs: Code(s): R60.0 - Localized edema Status: Acute Assessment and Plan: Patient states that edema has improved. Continue lasix bid Monitor Time Spent With Patient Time with patient: 25 - 35 minutes Subjective Date/time seen: 07/29/24 08:10 Interval history: 63-year-old female with morbid obesity, paroxysmal atrial fibrillation on anticoagulation, suspected obstructive sleep apnea, and cervical cancer in 2011 who presented to the emergency department via EMS from home with weakness. Patient is pleasant sitting up in the chair after working with therapy. She states that she is feeling stronger today and was able to stand and go to the chair. She continues to have lower extremity edema but states this has improved and is no longer weeping. She denies chest pain, shortness of breath, nausea/vomiting and abdominal pain. Patient is refusing her metoprolol this morning, stating that it lowers her heart rate too much and then she is unable to work with therapy. Discussed with patient that the metoprolol is for her afib which she has had issues with in the past. She states understanding and notes that she only takes her metoprolol at night as of late. Patients vital signs remain stable. Review of Systems Review of Systems: All systems reviewed & are unremarkable except as noted in HPI and below Exam Narrative: AF HR 77 RR 16 SpO2 98 BP 98/60 General: female in no acute respiratory distress who is nontoxic appearing, sitting up in her chair. HEENT: Normocephalic. Atraumatic. Extraocular movement intact. Sclera clear and anicteric. No facial asymmetry. Chest: Lungs are clear to auscultation bilaterally. No wheezes or crackles. CV: Heart was regular rate and rhythm. S1-S2. No murmurs, gallops, or rubs. Abd: Abdomen was soft. Nontender. Nondistended. Positive bowel sounds. No organomegaly or masses. Ext: Lymphadenopathy with edema to the bilateral lower extremity. Pulses remain intact. No wheeping. Neuro: Patient is alert. Cranial nerves 2-12 are intact. Speech is clear. Skin: Warm and dry. No rashes noted. Objective Data Vital Signs Vital Signs: Vital Signs - 24 hr 07/28/24 08:13 07/28/24 08:30 07/28/24 09:16 Temperature Pulse Rate 96 104 H Respiratory Rate Blood Pressure 115/45 L Pulse Oximetry 99 Oxygen Delivery Room Air Fraction of Inspired Oxygen 21 07/28/24 09:31 07/28/24 09:16 07/28/24 10:53 Temperature 97.7 F Pulse Rate 91 Respiratory Rate 20 Blood Pressure 102/66 Pulse Oximetry 99 Oxygen Delivery Room Air Room Air Fraction of Inspired Oxygen 07/28/24 11:40 07/28/24 13:51 07/28/24
[2024-07-29 08:24] LABS: Alanine Aminotransferase 13 U/L (6-35); Albumin Level 3.3 g/dL (3.5-5.1); Alkaline Phosphatase 113 U/L (38-126); Anion Gap 9 mmol/L (4-12); Aspartate Amino Transferase 24 U/L (14-36); Bilirubin,Total 1.9 mg/dL (0.2-1.3); Blood Urea Nitrogen 25 mg/dL (7-17); Calcium 8.5 mg/dL (8.4-10.2); Carbon Dioxide 27 mmol/L (22-30); Chloride 102 mmol/L (98-107); Estimated CRCL calculation 87 ml/min; Estimated Glomerular Filt Rate > 60; Glucose 83 mg/dL (65-110); Potassium 3.8 mmol/L (3.4-5.0); Sodium 138 mmol/L (137-145)
[2024-07-29] MEDS: FUROSEMIDE 20 MG TABLET PO ×2 (08:47→16:12)
[2024-07-29] MEDS: dilTIAZem HCL CD 120 MG CAP.24HR PO (08:47)
[2024-07-29] MEDS: MIDODRINE HCL 10 MG TABLET PO ×3 (08:47→16:12)
[2024-07-29] MEDS: CYANOCOBALAMIN 1,000 MCG TABLET 1000 MCG PO (08:47)
[2024-07-29] MEDS: FERROUS SULFATE 325 MG TABLET DR PO ×2 (08:47→16:12)
[2024-07-29] MEDS: MULTIVITAMINS /C LUTEIN (CENTRUM SILVER) TABLET *BKC 1 TAB PO (08:48)
[2024-07-29 08:49] VITALS: PULSE 94
[2024-07-29 14:00] VITALS: BP 92/60; PULSE 77; RESP 16; TEMP 36.6; O2SAT 99
[2024-07-29] MEDS: RIVAROXABAN 10 MG TABLET PO (16:11)
[2024-07-29 21:06] VITALS: PULSE 86
[2024-07-29] MEDS: METOPROLOL TARTRATE 25 MG TABLET PO (21:06)
[2024-07-29 21:48] VITALS: BP 92/56; PULSE 85; RESP 16; TEMP 36.6; O2SAT 97
[2024-07-30 04:41] VITALS: BP 101/55; PULSE 81; RESP 14; TEMP 36.6; O2SAT 99
[2024-07-30 06:06] LABS: Basophils Absolute Auto 0.1 K/mm3 (0.0-0.1); Basophils Percent Auto 1.6 % (0.2-1.2); Eosinophils Absolute Auto 0.3 K/mm3 (0-0.3); Eosinophils Percent Auto 5.2 % (0-4.4); Hematocrit 27.9 % (37.0-47.0); Hemoglobin 8.7 g/dL (12.0-15.0); Immature Granulocyte Absolute 0.07 K/mm3 (0.00-0.031); Immature Granulocyte Percent A 1.2 % (0-0.5); Lymphocytes Absolute Auto 0.89 K/mm3 (0.9-3.2); Lymphocytes Percent Auto 15.5 % (18.3-44.2); Mean Corpuscular HGB Conc 31.2 g/dl (32-36); Mean Corpuscular Hemoglobin 31.5 pg (26-34); Mean Corpuscular Volume 101.1 fl (80-100); Mean Platelet Volume 10.2 fl (7.4-10.4); Monocytes Absolute Auto 0.7 K/mm3 (0.1-0.6); Monocytes Percent Auto 12.2 % (2.6-8.5); Neutrophils Absolute Auto 3.7 K/mm3 (1.3-6.7); Neutrophils Percent Auto 64.3 % (45.5-73.1); Platelet Count Result 408 k/mm3 (150-375); Red Blood Count 2.76 M/mm3 (4.2-5.4); Red Cell Distribution Width 19.4 % (11.5-14.5); White Blood Count 5.7 K/mm3 (4.5-10.0)
[2024-07-30 06:19] LABS: Alanine Aminotransferase 13 U/L (6-35); Albumin Level 3.5 g/dL (3.5-5.1); Alkaline Phosphatase 121 U/L (38-126); Anion Gap 7 mmol/L (4-12); Aspartate Amino Transferase 30 U/L (14-36); Bilirubin,Total 1.8 mg/dL (0.2-1.3); Blood Urea Nitrogen 22 mg/dL (7-17); Calcium 8.5 mg/dL (8.4-10.2); Carbon Dioxide 28 mmol/L (22-30); Chloride 102 mmol/L (98-107); Estimated CRCL calculation 99 ml/min; Estimated Glomerular Filt Rate > 60; Glucose 97 mg/dL (65-110); Potassium 3.5 mmol/L (3.4-5.0); Sodium 137 mmol/L (137-145)
--- NOTE | 2024-07-30 08:04 | PM.IMPN ---
Progress Note: A&P Assessment and Plan (1) Weakness: Code(s): R53.1 - Weakness Status: Acute Assessment and Plan: Patient was discharged from the hospital on 07/26 after 2 week stay and it was highly suggested to her that she go to rehab however she was adamant that she would be able to care for herself at home. Unfortunately she was unable to get herself up off the couch and realized that she is going to need rehab to gain her strength back. - PT/OT ordered - Initiate fall precautions. - working with care coordination on placement (2) Morbid obesity with BMI of 60.0-69.9, adult: Code(s): E66.01 - Morbid (severe) obesity due to excess calories; Z68.44 - Body mass index [BMI] 60.0-69.9, adult Status: Chronic Assessment and Plan: life style modification - will need weight loss f/u as outpt (3) Paroxysmal atrial fibrillation: Code(s): I48.0 - Paroxysmal atrial fibrillation Status: Acute Assessment and Plan: Chronic, rate controlled on metoprolol and anticoagulation with Xarelto. - Continue home medications - Monitor (4) Wounds, multiple: Code(s): T07.XXXA - Unspecified multiple injuries, initial encounter Status: Chronic Assessment and Plan: wound care consulted (5) Edema of both legs: Code(s): R60.0 - Localized edema Status: Acute Assessment and Plan: Patient states that edema has improved. Continue lasix bid Monitor Subjective Date/time seen: 07/30/24 08:04 Interval history: 63-year-old female with morbid obesity, paroxysmal atrial fibrillation on anticoagulation, suspected obstructive sleep apnea, and cervical cancer in 2011 who presented to the emergency department via EMS from home with weakness. Review of Systems Review of Systems: All systems reviewed & are unremarkable except as noted in HPI and below Exam Narrative: AF HR General: female in no acute respiratory distress who is nontoxic appearing, sitting up in her chair. HEENT: Normocephalic. Atraumatic. Extraocular movement intact. Sclera clear and anicteric. No facial asymmetry. Chest: Lungs are clear to auscultation bilaterally. No wheezes or crackles. CV: Heart was regular rate and rhythm. S1-S2. No murmurs, gallops, or rubs. Abd: Abdomen was soft. Nontender. Nondistended. Positive bowel sounds. No organomegaly or masses. Ext: Lymphadenopathy with edema to the bilateral lower extremity. Pulses remain intact. No wheeping. Neuro: Patient is alert. Cranial nerves 2-12 are intact. Speech is clear. Skin: Warm and dry. No rashes noted. Objective Data Vital Signs Vital Signs: Vital Signs - 24 hr 07/29/24 08:49 07/29/24 14:00 07/29/24 21:06 Temperature 97.9 F Pulse Rate 94 77 86 Respiratory Rate 16 Blood Pressure 92/60 L Pulse Oximetry 99 07/29/24 21:48 07/30/24 04:41 Temperature 97.8 F 97.8 F Pulse Rate 85 81 Respiratory Rate 16 14 Blood Pressure 92/56 L 101/55 L Pulse Oximetry 97 99 Intake/Output Intake/Output: Intake & Output 07/27/24 07/28/24 07/29/24 07/30/24 23:59 23:59 23:59 23:59 Intake Total 850 1230 350 Output Total 345 009 6744 Balance -50 530 -650 Meds/Results Medications: Active Medications Generic Name Dose Route Start Last Admin Trade Name Freq PRN Reason Stop Dose Admin Acetaminophen 650 mg 07/27/24 23:13 07/28/24 12:30 Acetaminophen 325 Mg Tablet PO 650 mg Q6H PRN Administration Mild Pain (1-3) or Fever Cyanocobalamin 1,000 mcg 07/28/24 09:00 07/29/24 08:47 Cyanocobalamin 1,000 Mcg Tablet PO 1,000 mcg QAM YONI Administration Diltiazem HCl 120 mg 07/28/24 09:00 07/29/24 08:47 Diltiazem Hcl Cd 120 Mg Cap.24hr PO 120 mg DAILY YONI Administration Ferrous Sulfate 325 mg 07/28/24 09:00 07/29/24 16:12 Ferrous Sulfate [address] PO 325 mg BID YONI Administration Furosemide 20 mg 07/28/24 09:00 07/29/24 16:12 Furosemide 2
[2024-07-30] MEDS: FERROUS SULFATE 325 MG TABLET DR PO (08:35)
[2024-07-30] MEDS: dilTIAZem HCL CD 120 MG CAP.24HR PO (08:35)
[2024-07-30] MEDS: FUROSEMIDE 20 MG TABLET PO (08:35)
[2024-07-30] MEDS: MIDODRINE HCL 10 MG TABLET PO ×2 (08:35→12:24)
[2024-07-30] MEDS: MULTIVITAMINS /C LUTEIN (CENTRUM SILVER) TABLET *BKC 1 TAB PO (08:35)
[2024-07-30] MEDS: CYANOCOBALAMIN 1,000 MCG TABLET 1000 MCG PO (08:36)
--- NOTE | 2024-07-30 10:05 | PC.NURSE ---
Called and spoke with wound care nurse at this time about new fluid-filled blister on patient's LLE. She said we will not change up wound care orders at this time.
--- NOTE | 2024-07-30 13:32 | PM.DS ---
DS: Admitting Diagnosis Discharge Date 07/30/2024 Admitting Diagnosis weakness morbid obesity with BMI of 60-69.9 paroxysmal afib wounds, multiple edema to both legs DS: Discharge Diagnosis Discharge Diagnosis (1) Weakness: Code(s): R53.1 - Weakness Status: Acute (2) Morbid obesity with BMI of 60.0-69.9, adult: Code(s): E66.01 - Morbid (severe) obesity due to excess calories; Z68.44 - Body mass index [BMI] 60.0-69.9, adult Status: Chronic (3) Paroxysmal atrial fibrillation: Code(s): I48.0 - Paroxysmal atrial fibrillation Status: Acute (4) Wounds, multiple: Code(s): T07.XXXA - Unspecified multiple injuries, initial encounter Status: Chronic (5) Edema of both legs: Code(s): R60.0 - Localized edema Status: Acute DS: Summary Hospital Course Reason for hospitalization: weakness morbid obesity with BMI of 60-69.9 paroxysmal afib wounds, multiple edema to both legs Hospital Course: 63-year-old female with morbid obesity, paroxysmal atrial fibrillation on anticoagulation, suspected obstructive sleep apnea, and cervical cancer in 2011 who presented to the emergency department via EMS from home with weakness. Patient was discharged from the hospital on 07/26 after 2 week stay and it was highly suggested to her that she go to rehab however she was adamant that she would be able to care for herself at home. Unfortunately she was unable to get herself up off the couch and realized that she is going to need rehab to gain her strength back. During this admission she was evaluated by PT/OT who continue to recommend SNF. Care coordination was following and patient is to DC to [facility] SNF today. During her admission she was seen by wound care for her chronic wounds to the lower extremities. Patient is to continue with the silver nitrate and cover the wounds. Prior to discharge patient denied chest pain, shortness of breath, nausea/vomiting and abdominal pain. She noted that the swelling continues to improve. Patient discharged in stable condition to SNF. She is to follow up with her PCP in 1 week. Status at Discharge Functional status at discharge: uses cane/walker Time Spent with Patient Time attestation: Total time spent providing and/or coordinating discharge services: Time spent: Greater than 30 minutes Exam Narrative: AF HR 81 RR 14 Spo2 99 BP 101/55 General: female in no acute respiratory distress who is nontoxic appearing, sitting up in her chair. HEENT: Normocephalic. Atraumatic. Extraocular movement intact. Sclera clear and anicteric. No facial asymmetry. Chest: Lungs are clear to auscultation bilaterally. No wheezes or crackles. CV: Heart was regular rate and rhythm. S1-S2. No murmurs, gallops, or rubs. Abd: Abdomen was soft. Nontender. Nondistended. Positive bowel sounds. No organomegaly or masses. Ext: Lymphadenopathy with edema to the bilateral lower extremity. Pulses remain intact. No wheeping. Small 1cm blister to the left pretibial region without drainage. DS: Data Data Completed and Pending Labs on day of discharge: Labs from last 24 hours 07/30/24 05:52 WBC 5.7 RBC 2.76 L Hgb 8.7 L Hct 27.9 L MCV 101.1 H MCH 31.5 MCHC 31.2 L RDW 19.4 H Plt Count 408 H MPV 10.2 Immature Gran % (Auto) 1.2 H Neut % (Auto) 64.3 Lymph % (Auto) 15.5 L [place] % (Auto) 12.2 H Eos % (Auto) 5.2 H Baso % (Auto) 1.6 H Lymph # (Auto) 0.89 L [place] # (Auto) 0.7 H Eos # (Auto) 0.3 Baso # (Auto) 0.1 Abs Immat Gran (auto) 0.07 H Absolute Neuts (auto) 3.7 Absolute Nucleated RBC 0.000 Nucleated RBC % 0.0 Sodium 137 Potassium 3.5 Chloride 102 Carbon Dioxide 28 Anion Gap 7 BUN 22 H Creatinine 0.70 Estim Creat Clear Calc 99 Estimated GFR > 60 Glucose 97 Calcium 8.5 Total Bilirubin 1.8 H AST 30 ALT 13 Alkaline Phosphatase 121 Total Protein 7.0 Albumin 3.5 Preliminary micro results at discharge 07/27/24 16:
== END 2024-07-30 14:40 ==
LOC: ANHED 16:07 → ANH2MED 19:21
PROVIDERS: Physician Assistant; Admitting Provider General Practice; Emergency Provider Emergency Medicine; PCP Family Medicine; Visit Provider Student in an Organized Health Care Education/Training Program
DX: R53.1 Weakness (principal); E66.01 Morbid (severe) obesity due to excess calories; Z68.44 Body mass index [BMI] 60.0-69.9, adult; I48.0 Paroxysmal atrial fibrillation; D50.9 Iron deficiency anemia, unspecified; T07.XXXA Unspecified multiple injuries, initial encounter; R60.0 Localized edema; Z79.01 Long term (current) use of anticoagulants; Z85.41 Personal history of malignant neoplasm of cervix uteri; Z79.899 Other long term (current) drug therapy; Z78.9 Other specified health status
CPT/HCPCS: 36415; 80048; 80053; 83605; 83735; 85025; 85027; 85610; 85730; 86140; 87040; 97161; 97165; 97530; 99285; A9270; G0378

== ENCOUNTER 2024-08-31 11:12 | Inpatient (IN) | payer MEDICARE, SELFPAY ==
[2024-08-31] VITALS (12 sets, daily range): BP systolic 92–116; BP diastolic 52–85; PULSE 84–126; RESP 14–24; TEMP 36.4–37.7; O2SAT 95–100; BMI 65.3
--- NOTE | ~2024-08-31 | XR_ITS ---
EXAMINATION: XR chest 2V DATE: 08/31/2024 12:03 INDICATION: Weakness. TECHNIQUE: Frontal and lateral views of the chest were obtained on 3 radiographs. COMPARISON: Chest single view 07/10/2024 FINDINGS: Sensitivity is decreased by obesity. There is mild atelectasis in left midlung zone. No ple ural effusion or pneumothorax. Cardiomegaly is noted. IMPRESSION: 1. Mild atelectasis in left midlung zone. 2. Cardiomegaly. Reviewed, dictated and finalized at location A. [employer]
--- NOTE | 2024-08-31 11:17 | ECG_ITS ---
Test Date: 2024-08-31 11:19:50 Measurements Intervals [place] Rate: 122 P: 0 LA: 0 QRS: 66 QRSD: 84 T: -32 QT: 286 QTc: 409 Interpretive Statements ATRIAL FIBRILLATION WITH RAPID VENTRICULAR RESPONSE WITH ABERRANT CONDUCTION OR VENTRICULAR PREMATURE COMPLEXES LOW QRS VOLTAGE- DIFFUSE LEADS POSSIBLE RIGHT VENTRICULAR CONDUCTION DELAY CANNOT R/O SEPTAL INFARCT, AGE INDETERMINATE BORDERLINE ST-T WAVE ABNORMALITY- INF/LAT LEADS BASELINE ARTIFACT- I, III, AVR, AVL, V1-V2 ABNORMAL ECG Compared to ECG 07/09/2024 20:31:43 HEART RATE HAS DECREASED Electronically Signed On 08-31-2024 11:34:51 QUALITY ASSURANCE PRACTICE MANAGER by Vernon Mcgowan D.O.
[2024-08-31 11:32] LABS: Basophils Absolute Auto 0.1 K/mm3 (0.0-0.1); Basophils Percent Auto 1.4 % (0.2-1.2); Eosinophils Absolute Auto 0.2 K/mm3 (0-0.3); Eosinophils Percent Auto 3.8 % (0-4.4); Hematocrit 29.1 % (37.0-47.0); Hemoglobin 9.2 g/dL (12.0-15.0); Immature Granulocyte Absolute 0.01 K/mm3 (0.00-0.031); Immature Granulocyte Percent A 0.2 % (0-0.5); Lymphocytes Absolute Auto 0.81 K/mm3 (0.9-3.2); Mean Corpuscular HGB Conc 31.6 g/dl (32-36); Mean Corpuscular Hemoglobin 31.6 pg (26-34); Mean Platelet Volume 9.2 fl (7.4-10.4); Monocytes Absolute Auto 0.6 K/mm3 (0.1-0.6); Monocytes Percent Auto 11.1 % (2.6-8.5); Neutrophils Absolute Auto 3.4 K/mm3 (1.3-6.7); Neutrophils Percent Auto 67.5 % (45.5-73.1); Platelet Count Result 338 k/mm3 (150-375); Red Blood Count 2.91 M/mm3 (4.2-5.4); Red Cell Distribution Width 17.4 % (11.5-14.5); White Blood Count 5.1 K/mm3 (4.5-10.0)
--- NOTE | 2024-08-31 12:25 | ED_ITS ---
HPI - Weakness General Chief complaint: Weakness Stated complaint: increased weakness, leg infxn Time Seen by Provider: 08/31/24 12:04 History of Present Illness HPI Narrative: patient is a 63-year-old female presenting with palpitations and generalized weakness. Patient states that for the last couple days she has been having palpitations associated with nausea and anxiety. States her heart feels like it is flop flopping out of her chest. Has had some intermittent shortness of breath and lightheadedness. States that she feels very weak and it is hard for her to get around. States that she has chronic leg swelling and wounds that are actually better than they have been. States that her urine was dark this morning but denies further complaints. Related Data Home Medications Medication Instructions Recorded Confirmed multivit with minerals-iron 18 1 tablet PO DAILY 02/09/24 08/31/24 mg-folic ac 400 mcg-vit K 25 mcg tablet (Adults Multivitamin) ferrous sulfate 325 mg (65 mg 65 mg PO BID 07/27/24 08/31/24 iron) tablet,delayed release Allergies Allergy/AdvReac Type Severity Reaction Status Date / Time codeine Allergy Unknown Other Verified 08/31/24 19:28 diazepam Allergy Unknown Other Verified 08/31/24 19:28 Review of Systems Review of Systems: All systems reviewed & are unremarkable except as noted in HPI and below PMFSH Past Medical History Medical History Cervical cancer (2011) Chronic anticoagulation Iron deficiency anemia 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 Moderate tricuspid valve regurgitation Morbid obesity with BMI of 60.0-69.9, adult Paroxysmal atrial fibrillation Severe mitral valve regurgitation Surgical History Surgical History History of foot surgery Bilateral foot surgery when she was young History of total abdominal hysterectomy and bilateral salpingo-oophorectomy (2011) Family History Family History Mother CKD (chronic kidney disease), Onset Age: 18 Glomerular nephritis Father Lung cancer Sibling Non-Hodgkin lymphoma Recurrent kidney stones Social History Social History Social History: Surrogate medical decision maker: Kishan Forrester, brother. Code status: Full Code. Smoking status: Never smoker Second hand tobacco smoke exposure: No Alcohol intake: never Substance use: never Substance use type: does not use Do You Feel Safe in your Home?: Yes Lack of Transportation: No Lack of Food: Never True Current Housing: I Have Housing Concerned About Future Housing: No Difficulty Paying Gas/Electric Bills: No Difficulty Paying for Meds: No Currently Unemployed: No Education: Master's Degree or Higher Difficulty w/ Childcare or Family Care: No Additional living arrangements comments: Lives in her own home in [place] with her boxer named Dana. No children. 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: No Exam Narrative: GENERAL: Chronically ill-appearing, no acute distress, pleasant cooperative HEAD: Normocephalic, atraumatic. EYES: PERRLA and EOMI. ENT: Mucous membranes dry NECK: Supple. CHEST: No respiratory distress. HEART: irregularly irregular rhythm, tachycardic ABDOMEN: Soft, nontender, nondistended EXTREMITIES: bilateral lower extremity edema with skin thickening and changes of chronic venous stasis SKIN: Warm, dry, no rash. NEURO: Alert and oriented x3. PSYCH: Normal mood and affect. Course Vital Signs Vital signs: Vital Signs Temperature 97.5 F L 08/31/24 11:06 Pulse Rate 104 H 08/31/24 11:06 Respiratory Rate 20 08/31/24 11:06 Blood Pressure 110/73 08/31/24 11:06 Pulse Oximetry 96 08/31/24 11:06 Oxygen Delivery Room Air 08/31/24 11:06 Temperature 99.3 F 08/31/24 20:35 Pulse Rate 109 H 08/31/24 20:35 Respiratory Rate 24 H 08/31/24 20:35 Blood Pressure 116/72 08/31/24 20:35 Pulse Oximetry 95 08/31/24 20:35 Oxygen Delivery Room Air 08/31/24 20:30 MDM - Weakness MDM Narrative Medical decision making narrative: 63-year-old female presenting with palpitations, generalized weakness, lightheadedness. Patient is in AFib, EKG per my interpretation shows AFib with RVR. chest x-ray without acute abnormalities. UA concerning for UTI, Rocephin has been ordered. Blood work with low potassium. Her proBNP is 4300. Troponins are undetectable. Patient was of soft pressures, her midodrine has been ordered prior to diuresis. IV Lasix has been ordered as well. Patient requires admission for further management. She is agreeable this plan. I spoke with the hospitalist who has accepted her for admission. Differential Diagnosis Differential diagnosis: Likely other ( Anemia, AFib RVR, dehydration, UTI, electrolyte derangement) Medical Records Attestation: I reviewed the patient's medical records. Lab Data Attestation: I reviewed the patient's lab results. 08/31/24 11:25 08/31/24 12:54 Labs: Lab Results 08/31/24 08/31/24 08/31/24 Range/Units 11:25 12:54 15:44 WBC 5.1 (4.5-10.0) K/mm3 RBC 2.91 L (4.2-5.4) M/mm3 Hgb 9.2 L (12.0-15.0) g/dL Hct 29.1 L (37.0-47.0) % MCV 100.0 (80-100) fl MCH 31.6 (26-34) pg MCHC 31.6 L (32-36) g/dl RDW 17.4 H (11.5-14.5) % Plt Count 338 (150-375) k/mm3 MPV 9.2 (7.4-10.4) fl Immature Gran % (Auto) 0.2 (0-0.5) % Neut % (Auto) 67.5 (45.5-73.1) % Lymph % (Auto) 16.0 L (18.3-44.2) % [place] % (Auto) 11.1 H (2.6-8.5) % Eos % (Auto) 3.8 (0-4.4) % Baso % (Auto) 1.4 H (0.2-1.2) % Lymph # (Auto) 0.81 L (0.9-3.2) K/mm3 [place] # (Auto) 0.6 (0.1-0.6) K/mm3 Eos # (Auto) 0.2 (0-0.3) K/mm3 Baso # (Auto) 0.1 (0.0-0.1) K/mm3 Abs Immat Gran (auto) 0.01 (0.00-0.031) K/mm3 Absolute Neuts (auto) 3.4 (1.3-6.7) K/mm3 Absolute Nucleated RBC 0.000 (0.0-0.012) K/mm3 Nucleated RBC % 0.0 (0.0-0.2) % PT 19.2 H (11.1-14.7) Seconds INR 1.6 APTT 32.1 (22.3-36.8) Seconds Sodium 141 (137-145) mmol/L Potassium 3.1 L (3.4-5.0) mmol/L Chloride 105 (98-107) mmol/L Carbon Dioxide 24 (22-30) mmol/L Anion Gap 12 (4-12) mmol/L BUN 14 D (7-17) mg/dL Creatinine 0.70 (0.7-1.0) mg/dL Estim Creat Clear Calc Not Reportable Estimated GFR > 60 (59 - ) Glucose 84 (65-110) mg/dL Lactic Acid 2.4 H (0.7-2.0) mmol/L Calcium 9.0 (8.4-10.2) mg/dL Magnesium 2.0 (1.6-2.3) mg/dL Total Bilirubin 2.6 H (0.2-1.3) mg/dL AST 31 (14-36) U/L ALT 16 (6-35) U/L Alkaline Phosphatase 98 (38-126) U/L Troponin I < 0.012 < 0.012 (0.000-0.034) ng/mL NT-Pro-B Natriuret Pep 4320 H (19.9-100) pg/mL Total Protein 8.0 (6.3-8.2) g/dL Albumin 3.6 (3.5-5.1) g/dL Lipase 53 (23-300) U/L Urine Color Dark yellow (Yellow) Urine Appearance Cloudy H (Clear) Urine pH 5.0 (5.0-9.0) Ur Specific [place] 1.030 (1.001-1.035) Urine Protein 3+ H (Negative) mg/dL Urine Glucose (UA) Negative (Negative) mg/dL Urine Ketones 1+ H (Negative) mg/dL Ur Blood (Man) Negative (Negative) Urine Nitrate Positive H (Negative) Urine Bilirubin 2+ H (Negative) Urine Urobilinogen 1.0 (<2.0) mg/dL Add Ur Microanalysis Reviewed Leukocyte Esterase Rfl Trace H (Negative) JARRET/UL Urine RBC 6-10 H (0-2) /hpf Urine WBC 0-5 (0-3) /hpf Ur Squamous Epith Cells Occasional (Few) /hpf Calcium Oxalate Crystal Present (None) /hpf Urine Bacteria 4+ H /hpf Urine Casts 11-20 Hyaline Casts Present (None) /lpf Urine Mucus Present /lpf Imaging Data Radiologist's impression: ITS Impressions Chest X-Ray 08/31/24 12:07 IMPRESSION: 1. Mild atelectasis in left midlung zone. 2. Cardiomegaly. Critical Care Time Critical Care Time Critical Care Time: Yes Total Critical Care Time: 32 Discharge Plan Discharge Clinical Impression: Atrial fibrillation with rapid ventricular response, UTI (urinary tract infection), Hypokalemia, Volume overload Patient Disposition: Still a Patient Condition: Serious
[2024-08-31 13:12] LABS: Lipase 53 U/L (23-300)
[2024-08-31 13:13] LABS: Alanine Aminotransferase 16 U/L (6-35); Albumin Level 3.6 g/dL (3.5-5.1); Alkaline Phosphatase 98 U/L (38-126); Anion Gap 12 mmol/L (4-12); Aspartate Amino Transferase 31 U/L (14-36); Bilirubin,Total 2.6 mg/dL (0.2-1.3); Blood Urea Nitrogen 14 mg/dL (7-17); Carbon Dioxide 24 mmol/L (22-30); Chloride 105 mmol/L (98-107); Estimated Glomerular Filt Rate > 60; Glucose 84 mg/dL (65-110); Lactic Acid Reflex 2.4 mmol/L (0.7-2.0); Potassium 3.1 mmol/L (3.4-5.0); Sodium 141 mmol/L (137-145)
[2024-08-31 13:14] LABS: INR 1.6; Prothrombin Time 19.2 Seconds (11.1-14.7)
[2024-08-31 13:15] LABS: Partial Thromboplastin Time 32.1 Seconds (22.3-36.8)
[2024-08-31 13:21] LABS: Add Urine Microscopic? YES; Appearance Urine Cloudy (Clear); Bacteria Urine 4+ /hpf; Bilirubin Urine 2+ (Negative); Blood Urine Negative (Negative); Calcium Oxalate Crystals Urine Present /hpf; Color Urine Dark Yellow (Yellow); Glucose Urine UA Negative (Negative); Hyaline Casts Urine Present /lpf; Ketones Urine 1+ mg/dL (Negative); Leukocyte Esterase Ur Trace LEU/UL (Negative); Mucus Urine Present /lpf; Need Manual Microscopic Reviewed; Nitrate Urine Positive (Negative); Protein Urine 3+ mg/dL (Negative); Squamous Epithelial Cell Urine Occasional /hpf (Few); WBC Urine 0-5 /hpf (0-3)
[2024-08-31 13:24] LABS: NT Pro B Type Natriuretic Pept 4320 pg/mL (19.9-100); Troponin I < 0.012 ng/mL (0.000-0.034)
[2024-08-31] MEDS: MIDODRINE HCL 10 MG TABLET PO ×2 (14:33→19:37)
--- NOTE | 2024-08-31 15:46 | P.HP_ITS ---
H&P: HPI History of Present Illness Date/Time: 08/31/24 15:46 Chief Complaint: Palpitation nausea Narrative: 63-year-old female well known to this hospital with history of AFib and chronic ulcers on lower extremity lymphedema presents due to palpitations and nausea. Patient states that she recently discharged home from rehab, about 10 take its ago and felt better than she had a very long time. The last 3 days or so she states that she was getting weaker and tired and thought it was due to her anemia. This morning when standing she was dizzy had a headache and felt like she was going to fall so she came to the emergency room. Patient was found to be in AFib with RVR with a rate of 120. Patient states that while she was home she was compliant with her medication and diet. In the ED potassium was 3.1, lactic acid 2.4, proBNP 4320, UA positive for nitrates and trace leukocyte esterase started on Rocephin in ED. chest x-ray shows pulmonary edema cardiomegaly. EKG shows AFib with RVR rate of 122, p atient given midodrine and Lasix with Lynch placed in the ED. Patient admitted to IMU for close observation of respiratory status and possible diltiazem drip. Review of Systems Review of Systems: 12 systems were reviewed and are negativ e except for as per HPI. [facility] Past Medical History Medical History Cervical cancer (2011) Chronic anticoagulation Iron deficiency anemia 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 Moderate tricuspid valve regurgitation Morbid obesity with BMI of 60.0-69.9, adult Paroxysmal atrial fibrillation Severe mitral valve regurgitation Surgical History Surgical History History of foot surgery Bilateral foot surgery when she was young History of total abdominal hysterectomy and bilateral salpingo-oophorectomy (2011) Family History Family History Mother CKD (chronic kidney disease), Onset Age: 18 Glomerular nephritis Father Lung cancer Sibling Non-Hodgkin lymphoma Recurrent kidney stones Social History Social History Social History: Surrogate medical decision maker: Kishan Forrester, brother. Code status: Full Code. Smoking status: Never smoker Second hand tobacco smoke exposure: No Alcohol intake: never Substance use: never Substance use type: does not use Do You Feel Safe in your Home?: Yes Lack of Transportation: No Lack of Food: Never True Current Housing: I Have Housing Concerned About Future Housing: No Difficulty Paying Gas/Electric Bills: No Difficulty Paying for Meds: No Currently Unemployed: No Education: Master's Degree or Higher Difficulty w/ Childcare or Family Care: No Additional living arrangements comments: Lives in her own home in [place] with her boxer named Dana. No children. 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: No Meds Home Medications and Allergies Home Medications Medication Instructions Recorded Confirmed Type multivit with minerals-iron 18 1 tablet PO DAILY 02/09/24 08/31/24 History mg-folic ac 400 mcg-vit K 25 mcg tablet (Adults Multivitamin) metoprolol tartrate 25 mg tablet 25 mg PO Q12HR #60 tabs 02/12/24 08/31/24 Rx diltiazem HCl 120 mg 120 mg PO DAILY #60 caps 04/18/24 08/31/24 Rx capsule,extended release 24 hr (Cardizem CD) cyanocobalamin (vitamin B-12) 1,000 mcg PO QAM #30 tabs 07/26/24 08/31/24 Rx 1,000 mcg tablet (Vitamin B-12) furosemide 20 mg tablet 20 mg PO BID #60 tabs 07/26/24 08/31/24 Rx midodrine 10 mg tablet 10 mg PO TID #90 tabs 07/26/24 08/31/24 Rx rivaroxaban 20 mg tablet (Xarelto) 10 mg PO DAILY@1700 #30 tabs 07/26/24 08/31/24 Rx ferrous sulfate 325 mg (65 mg 65 mg PO BID 07/27/24 08/31/24 History iron) tablet,delayed release Allergies Allergy/AdvReac Type Severity Reaction Status Date / Time codeine Allergy Unknown Other Verified 08/31/24 19:28 diazepam Allergy Unknown Other Verified 08/31/24 19:28 Vital Signs Vital Signs - 24 hr 08/31/24 11:06 08/31/24 11:18 08/31/24 13:02 Temperature 97.5 F L Pulse Rate 104 H 100 Respiratory Rate 20 Blood Pressure 110/73 Pulse Oximetry 96 98 Oxygen Delivery Room Air Room Air 08/31/24 13:02 08/31/24 15:00 Temperature 98.0 F 98.3 F Pulse Rate 84 103 H Respiratory Rate 14 22 H Blood Pressure 102/85 111/69 Pulse Oximetry 100 98 Oxygen Delivery Exam Narrative: General: well appearing, appears stated age. HEENT: normocephalic, atraumatic. Mucous membranes moist. EOMI, PERRLA, bilateral sclera anicteric, no conjunctival injection. Neck supple without JVD, lymphadenopathy, or bruit. Respiratory: Diminished, clear to ascultation bilaterally. No rales/rhonic/wheezes. Cardiovascular: Regular rate and rhythm, normal S1-S2 upon ascultation. No murmurs, rubs, or clicks. PMI is nondisplaced, capillary refill less than 3 second. Abdomen: Obese bowel sounds present Extremities: Pulses are palpable 2/2. Lower extremities with lymphedema and weeping to posterior legs, no signs of infection Neuro: Alert and orientated x 4. PERRLA. Cranial nerves 2-12 intact without focal deficit. Skin: Warm, dry, and intact, without rash, erythema, or lesion. Psych: pleasant, cooperative, normal speech, normal affect, no hallucinations, no dysarthia Lynch present H&P: Results Labs Labs: Short CBC 08/31/24 Range/Units 11:25 WBC 5.1 (4.5-10.0) K/mm3 Hgb 9.2 L (12.0-15.0) g/dL Hct 29.1 L (37.0-47.0) % Plt Count 338 (150-375) k/mm3 [facility] 08/31/24 12:54 Sodium 141 Potassium 3.1 L Chloride 105 Carbon Dioxide 24 BUN 14 D Creatinine 0.70 Glucose 84 Calcium 9.0 Cardiac Enzymes 08/31/24 Range/Units 12:54 Troponin I < 0.012 (0.000-0.034) ng/mL Liver Function 08/31/24 Range/Units 12:54 Total Bilirubin 2.6 H (0.2-1.3) mg/dL AST 31 (14-36) U/L ALT 16 (6-35) U/L Alkaline Phosphatase 98 (38-126) U/L Albumin 3.6 (3.5-5.1) g/dL Urine 08/31/24 Range/Units 12:54 Urine Color Dark yellow (Yellow) Urine Appearance Cloudy H (Clear) Urine pH 5.0 (5.0-9.0) Ur Specific [place] 1.030 (1.001-1.035) Urine Protein 3+ H (Negative) mg/dL Urine Glucose (UA) Negative (Negative) mg/dL Assessment and Plan Assessment and plan (1) Atrial fibrillation with rapid ventricular response: Code(s): I48.91 - Unspecified atrial fibrillation Status: Acute Assessment and Plan: Current rate below 130, patient may need a diltiazem drip if she sustains or exceeds 130 Cardiology consulted pending recommendations Troponin negative (2) UTI (urinary tract infection): Code(s): N39.0 - Urinary tract infection, site not specified Status: Acute Assessment and Plan: Sepsis lactic 2.4, BP 100 over 50s, AFib with RVR 120, UA 1+ ketones positive for nitrates positive leukocyte Estrace 4+ bacteria IV Rocephin No IV fluids due to overload Cultures and sensitivities pending Lynch due to aggressive diuresis (3) Congestive heart failure: Code(s): I50.9 - Heart failure, unspecified Status: Acute Assessment and Plan: IV Lasix x1 given a ED Lynch for aggressive diuresis, DC once respiratory status improves Lasix 40 mg scheduled for the morning, adjust as needed monitor blood pressure closely (4) Wounds, multiple: Code(s): T07.XXXA - Unspecified multiple injuries, initial encounter Status: Chronic Assessment and Plan: Bilateral lower extremity lymphedema with areas of weeping, no signs of infection Wound care consulted for management (5) Hypokalemia: Code(s): E87.6 - Hypokalemia Status: Acute Assessment and Plan: 40 mEq x1 given in ED Replete as needed Daily BMP Quality VTE Prophylaxis VTE prophylaxis: mechanical ordered and pharmacologic ordered Includes review of chart, time spent family, consulting teams and nursing. Vital signs were reviewe. The medications will be reviewed and resumed as appropriate. Findings and treatment plan were discussed with the patient. Questions were solicited and answered to satisfaction. Care plan was discussed with nursing. Hospitalist [facility] Advance Care Plan I have confirmed that the patient's Advanced Care Plan is present, code status is documented, or surrogate decision maker is listed in patient medical record.: Yes Medication Reconciliation I have utilized all available resources to obtain, update and review the patients current medications (includes all prescriptions, OTC, herbals, cannabis, and nutritional supplements).: Yes
[2024-08-31 16:00] LABS: Reflex Lactic Acid Yes or No Add Lactic
[2024-08-31] MEDS: POTASSIUM CHLORIDE 20 MEQ ER TABLET 40 MEQ PO (16:06)
[2024-08-31 16:16] LABS: Troponin I < 0.012 ng/mL (0.000-0.034)
[2024-08-31] MEDS: cefTRIAXone 2 GM/NS 100 ML 2 GM/100 ML BAG IVPB (16:35)
[2024-08-31] MEDS: FUROSEMIDE INJ 40 MG/4 ML VIAL IV PUSH (16:36)
[2024-08-31 16:42] LABS: Lactic Acid 2.4 mmol/L (0.7-2.0)
--- NOTE | 2024-08-31 18:39 | ECG_ITS ---
Test Date: 2024-08-31 19:56:01 Measurements Intervals [place] Rate: 129 P: 0 MA: 0 QRS: 93 QRSD: 81 T: 263 QT: 283 QTc: 415 Interpretive Statements ATRIAL FIBRILLATION WITH RAPID VENTRICULAR RESPONSE POSSIBLE RIGHT VENTRICULAR CONDUCTION DELAY LOW QRS VOLTAGE- DIFFUSE LEADS BORDERLINE ST-T WAVE ABNORMALITY- DIFFUSE LEADS BASELINE ARTIFACT- I, II, III, AVR, AVL, V1-V2 ABNORMAL ECG Compared to ECG 08/31/2024 11:19:50 NO SIGNIFICANT CHANGE Electronically Signed On 09-01-2024 06:09:05 STERILE TECHNICIAN by Vernon Mcgowan D.O.
[2024-08-31] MEDS: dilTIAZem HCL CD 120 MG CAP.24HR PO (19:37)
[2024-08-31] MEDS: DOCUSATE SODIUM 100 MG CAPSULE PO (19:37)
--- NOTE | 2024-08-31 20:00 | PC.NURSE ---
Report received from Amandeep ALSTON.
--- NOTE | 2024-08-31 20:20 | ADMGEN ---
This patient, Pili Forrester, was admitted to IMU Room 200-01. Patient/family oriented to hospital policies and general routines including ID bracelet, bed and alarms, visiting hours, pain management, procedures, bathroom and other care routines, personal items, smoking policy, room service/diet, and visiting hours. Information on how to activate the Rapid Response Team has been discussed. Patient/Family are encouraged to report perceived risks to care and to ask questions if they do not understand what they are told or what they should do.
[2024-08-31] MEDS: METOPROLOL TARTRATE 25 MG TABLET PO (20:35)
[2024-08-31] MEDS: ACETAMINOPHEN 325 MG TABLET 650 MG PO (20:35)
[2024-09-01] VITALS (16 sets, daily range): BP systolic 90–109; BP diastolic 54–69; PULSE 70–104; RESP 18–24; TEMP 36.3–37.1; O2SAT 94–100
[2024-09-01] MEDS: ENOXAPARIN 40 MG/0.4 ML SYRINGE SUB-Q (09:08)
[2024-09-01] MEDS: FUROSEMIDE INJ 40 MG/4 ML VIAL IV PUSH (09:09)
[2024-09-01] MEDS: dilTIAZem HCL CD 120 MG CAP.24HR PO (09:09)
[2024-09-01] MEDS: DOCUSATE SODIUM 100 MG CAPSULE PO ×2 (09:09→17:38)
[2024-09-01] MEDS: METOPROLOL TARTRATE 25 MG TABLET PO ×2 (09:09→21:32)
[2024-09-01] MEDS: MIDODRINE HCL 10 MG TABLET PO ×3 (09:09→17:38)
--- NOTE | 2024-09-01 09:57 | PM.IMPN ---
Progress Note: A&P Assessment and Plan (1) Paroxysmal atrial fibrillation: Code(s): I48.0 - Paroxysmal atrial fibrillation Status: Acute (2) Hypokalemia: Code(s): E87.6 - Hypokalemia Status: Acute (3) Atrial fibrillation with RVR: Code(s): I48.91 - Unspecified atrial fibrillation Status: Acute Plan 63-year-old female well known to this hospital with history of AFib and chronic ulcers on lower extremity lymphedema presents due to palpitations and nausea. Patient states that she recently discharged home from rehab, about 10 take its ago and felt better than she had a very long time. The last 3 days or so she states that she was getting weaker and tired and thought it was due to her anemia. This morning when standing she was dizzy had a headache and felt like she was going to fall so she came to the emergency room. Patient was found to be in AFib with RVR with a rate of 120. Patient states that while she was home she was compliant with her medication and diet. In the ED potassium was 3.1, lactic acid 2.4, proBNP 4320, UA positive for nitrates and trace leukocyte esterase started on Rocephin in ED. chest x-ray shows pulmonary edema cardiomegaly. EKG shows AFib with RVR rate of 122, Atrial fibrillation with rapid ventricular response: Code(s): I48.91 - Unspecified atrial fibrillation Status: Acute Assessment and Plan: Current rate below 130, patient may need a diltiazem drip if she sustains or exceeds 130 Cardiology consulted pending recommendations Troponin negative Likely secondary to acute heart failure Acute heart failure Status: Acute Assessment and Plan: IV Lasix x1 given a ED Lynch for aggressive diuresis, DC once respiratory status improves Lasix 40 mg scheduled for the morning, adjust as needed monitor blood pressure closely echo July 20 showed Left ventricular systolic function is normal, estimated at 55-60%. moderate to severe tricuspid valve regurgitation. Severity ofregurgitation may be underestimated due to eccentricity of the jet. Pulmonary hypertension, estimated pulmonary arterial systolic pressureis 50 mmHg. Possible resulting from mitral tricuspid valve regurgitation Consult lip and gate builder for evaluation treatment UTI (urinary tract infection): Code(s): N39.0 - Urinary tract infection, site not specified Status: Acute Assessment and Plan: Sepsis lactic 2.4, BP 100 over 50s, AFib with RVR 120, UA 1+ ketones positive for nitrates positive leukocyte Estrace 4+ bacteria IV Rocephin No IV fluids due to overload Cultures and sensitivities pending Lynch due to aggressive diuresis Wounds, multiple: Code(s): T07.XXXA - Unspecified multiple injuries, initial encounter Status: Chronic Assessment and Plan: Bilateral lower extremity lymphedema with areas of weeping, no signs of infection Wound care consulted for management Hypokalemia: Code(s): E87.6 - Hypokalemia Status: Acute Assessment and Plan: 40 mEq x1 given in ED Replete as needed Daily BMP Subjective Date/time seen: 09/01/24 09:57 Interval history: I saw and exam patient today. Patient feels better, dyspnea is improving. Patient still has significant dyspnea with mild exertion. Patient denies chest pain abdomen pain nausea vomiting diarrhea. Exam Narrative: GENERAL: Pleasant, in no acute distress. Well-nourished. - EYES: EOMI. Anicteric. - HENT: Moist mucous membranes. - LUNGS: Coarse breath sound bilateral base - CARDIOVASCULAR: Regular rate and rhythm. No murmur. No JVD. - ABDOMEN: Soft, non-tender and non-distended. No palpable masses. - EXTREMITIES: 2+ lower extremities edema. Peripheral pulses 2+. Non-tender. - NEUROLOGIC: No focal neurological deficits. CN II-XII grossly intact. - PSYCHIATRIC: Awake, Alert and oriented x 3. Appropriate mood and affect. - SKIN:swelling, lower extremities, patient has lymphedema - LYMPH: No cervical lymphadenopathy. Objective Data Vital Signs Vital Signs: Vital Signs - 24 hr 08/31/24 11:06 08/31/24 11:18 08/31/24 13:02 Temperature 97.5 F L Pulse Rate 104 H 100 Respiratory Rate 20 Blood Pressure 110/73 Pulse Oximetry 96 98 Oxygen Delivery Room Air Room Air 08/31/24 13:02 08/31/24 15:00 08/31/24 16:37 Temperature 98.0 F 98.3 F 97.7 F Pulse Rate 84 103 H 100 Respiratory Rate 14 22 H 14 Blood Pressure 102/85 111/69 103/74 Pulse Oximetry 100 98 100 Oxygen Delivery 08/31/24 17:57 08/31/24 19:31 08/31/24 20:01 Temperature 97.7 F 97.7 F Pulse Rate 119 H 123 H 126 H Respiratory Rate 23 H 24 H Blood Pressure 106/74 Pulse Oximetry 97 100 Oxygen Delivery 08/31/24 20:35 08/31/24 20:35 08/31/24 20:30 Temperature 99.3 F Pulse Rate 116 H 109 H Respiratory Rate 24 H Blood Pressure 116/72 Pulse Oximetry 95 Oxygen Delivery Room Air 08/31/24 20:31 08/31/24 22:00 08/31/24 23:39 Temperature 99.9 F H Pulse Rate 115 H 110 H 103 H Respiratory Rate 24 H Blood Pressure 92/52 L Pulse Oximetry 95 Oxygen Delivery 09/01/24 00:00 09/01/24 00:00 09/01/24 02:00 Temperature Pulse Rate 104 H 95 Respiratory Rate Blood Pressure Pulse Oximetry Oxygen Delivery Room Air 09/01/24 04:05 09/01/24 04:00 09/01/24 04:00 Temperature 98.8 F Pulse Rate 87 91 Respiratory Rate 24 H Blood Pressure 91/54 L Pulse Oximetry 100 Oxygen Delivery Room Air 09/01/24 06:00 09/01/24 07:34 09/01/24 09:09 Temperature 98.3 F Pulse Rate 86 93 93 Respiratory Rate 20 Blood Pressure 90/54 L Pulse Oximetry 100 Oxygen Delivery Intake/Output Intake/Output: Intake & Output 08/30/24 08/30/24 08/31/24 09/01/24 00:59 23:59 23:59 23:59 Intake Total 100 240 Output Total 600 Balance 100 -360 Meds/Results Medications: Active Medications Generic Name Dose Route Start Last Admin Trade Name Freq PRN Reason Stop Dose Admin Acetaminophen 650 mg 08/31/24 18:49 08/31/24 20:35 Acetaminophen 325 Mg Tablet PO 650 mg Q4H PRN Administration Mild Pain (1-3) or Fever Hydrocodone Bitart/Acetaminophen 1 tab 08/31/24 18:49 Hydrocodone/Acetaminophen (*Crx) 5-325 Mg Tablet PO Q4H PRN Moderate Pain (4-6) Diltiazem HCl 120 mg 08/31/24 19:00 09/01/24 09:09 Diltiazem Hcl Cd 120 Mg Cap.24hr PO 120 mg DAILY YONI Administration Docusate Sodium 100 mg 08/31/24 19:00 09/01/24 09:09 Docusate Sodium 100 Mg Capsule PO 100 mg BID YONI Administration Enoxaparin Sodium 40 mg 09/01/24 09:00 09/01/24 09:08 Enoxaparin 40 Mg/0.4 Ml Syringe SUB-Q 40 mg DAILY YONI Administration Furosemide 40 mg 09/01/24 09:00 09/01/24 09:09 Furosemide Inj 40 Mg/4 Ml Vial IV PUSH 40 mg DAILY YONI Administration Metoprolol Tartrate 25 mg 08/31/24 21:00 09/01/24 09:09 Metoprolol Tartrate 25 Mg Tablet PO 25 mg Q12HR YONI Administration Midodrine 10 mg 08/31/24 19:05 09/01/24 09:09 Midodrine Hcl 10 Mg Tablet PO 10 mg TID YONI Administration Radiology Results: ITS Impressions Chest X-Ray 08/31/24 12:07 IMPRESSION: 1. Mild atelectasis in left midlung zone. 2. Cardiomegaly. Labs Labs: Laboratory Results - last 24 hr 08/31/24 08/31/24 08/31/24 11:25 12:54 15:44 WBC 5.1 RBC 2.91 L Hgb 9.2 L Hct 29.1 L MCV 100.0 MCH 31.6 MCHC 31.6 L RDW 17.4 H Plt Count 338 MPV 9.2 Immature Gran % (Auto) 0.2 Neut % (Auto) 67.5 Lymph % (Auto) 16.0 L [place] % (Auto) 11.1 H Eos % (Auto) 3.8 Baso % (Auto) 1.4 H Lymph # (Auto) 0.81 L [place] # (Auto) 0.6 Eos # (Auto) 0.2 Baso # (Auto) 0.1 Abs Immat Gran (auto) 0.01 Absolute Neuts (auto) 3.4 Absolute Nucleated RBC 0.000 Nucleated RBC % 0.0 PT 19.2 H INR 1.6 APTT 32.1 Sodium 141 Potassium 3.1 L Chloride 105 Carbon Dioxide 24 Anion Gap 12 BUN 14 D Creatinine 0.70 Estim Creat Clear Calc Not Reportable Estimated GFR > 60 Glucose 84 Lactic Acid 2.4 H Calcium 9.0 Magnesium 2.0 Total Bilirubin 2.6 H AST 31 ALT 16 Alkaline Phosphatase 98 Troponin I < 0.012 < 0.012 NT-Pro-B Natriuret Pep 4320 H Total Protein 8.0 Albumin 3.6 Lipase 53 Urine Color Dark yellow Urine Appearance Cloudy H Urine pH 5.0 Ur Specific [place] 1.030 Urine Protein 3+ H Urine Glucose (UA) Negative Urine Ketones 1+ H Ur Blood (Man) Negative Urine Nitrate Positive H Urine Bilirubin 2+ H Urine Urobilinogen 1.0 Add Ur Microanalysis Reviewed Leukocyte Esterase Rfl Trace H Urine RBC 6-10 H Urine WBC 0-5 Ur Squamous Epith Cells Occasional Calcium Oxalate Crystal Present Urine Bacteria 4+ H Urine Casts 11-20 Hyaline Casts Present Urine Mucus Present 08/31/24 16:17 WBC RBC Hgb Hct MCV MCH MCHC RDW Plt Count MPV Immature Gran % (Auto) Neut % (Auto) Lymph % (Auto) [place] % (Auto) Eos % (Auto) Baso % (Auto) Lymph # (Auto) [place] # (Auto) Eos # (Auto) Baso # (Auto) Abs Immat Gran (auto) Absolute Neuts (auto) Absolute Nucleated RBC Nucleated RBC % PT INR APTT Sodium Potassium Chloride Carbon Dioxide Anion Gap BUN Creatinine Estim Creat Clear Calc Estimated GFR Glucose Lactic Acid 2.4 H Calcium Magnesium Total Bilirubin AST ALT Alkaline Phosphatase Troponin I NT-Pro-B Natriuret Pep Total Protein Albumin Lipase Urine Color Urine Appearance Urine pH Ur Specific [place] Urine Protein Urine Glucose (UA) Urine Ketones Ur Blood (Man) Urine Nitrate Urine Bilirubin Urine Urobilinogen Add Ur Microanalysis Leukocyte Esterase Rfl Urine RBC Urine WBC Ur Squamous Epith Cells Calcium Oxalate Crystal Urine Bacteria Urine Casts Hyaline Casts Urine Mucus
[2024-09-01 16:03] LABS: Anion Gap 11 mmol/L (4-12); Blood Urea Nitrogen 15 mg/dL (7-17); Calcium 8.4 mg/dL (8.4-10.2); Carbon Dioxide 27 mmol/L (22-30); Chloride 104 mmol/L (98-107); Estimated CRCL calculation 82 ml/min; Estimated Glomerular Filt Rate > 60; Glucose 125 mg/dL (65-110); Potassium 3.4 mmol/L (3.4-5.0); Sodium 142 mmol/L (137-145)
[2024-09-02] VITALS (9 sets, daily range): BP systolic 93–104; BP diastolic 53–69; PULSE 67–93; RESP 14–20; TEMP 36.5–36.7; O2SAT 93–100; BMI 10.0
[2024-09-02] MEDS: MIDODRINE HCL 10 MG TABLET PO ×3 (08:55→17:13)
[2024-09-02] MEDS: FUROSEMIDE INJ 40 MG/4 ML VIAL IV PUSH (08:55)
[2024-09-02] MEDS: DOCUSATE SODIUM 100 MG CAPSULE PO ×2 (08:56→17:13)
[2024-09-02] MEDS: dilTIAZem HCL CD 120 MG CAP.24HR PO (08:56)
[2024-09-02] MEDS: METOPROLOL TARTRATE 25 MG TABLET PO ×2 (08:56→20:16)
[2024-09-02] MEDS: ENOXAPARIN 40 MG/0.4 ML SYRINGE SUB-Q (08:57)
--- NOTE | 2024-09-02 08:57 | P.PNIM_ITS ---
Progress Note: A&P Assessment and Plan (1) Paroxysmal atrial fibrillation: Code(s): I48.0 - Paroxysmal atrial fibrillation Status: Acute (2) Hypokalemia: Code(s): E87.6 - Hypokalemia Status: Acute (3) Atrial fibrillation with RVR: Code(s): I48.91 - Unspecified atrial fibrillation Status: Acute Plan 63-year-old female well known to this hospital with history of AFib and chronic ulcers on lower extremity lymphedema presents due to palpitations and nausea. Patient states that she recently discharged home from rehab, about 10 take its ago and felt better than she had a very long time. The last 3 days or so she states that she was getting weaker and tired and thought it was due to her anemia. This morning when standing she was dizzy had a headache and felt like she was going to fall so she came to the emergency room. Patient was found to be in AFib with RVR with a rate of 120. Patient states that while she was home she was compliant with her medication and diet. In the ED potassium was 3.1, lactic acid 2.4, proBNP 4320, UA positive for nitrates and trace leukocyte esterase started on Rocephin in ED. chest x-ray shows pulmonary edema cardiomegaly. EKG shows AFib with RVR rate of 122, Atrial fibrillation with rapid ventricular response: Code(s): I48.91 - Unspecified atrial fibrillation Status: Acute Assessment and Plan: Current rate below 130, patient may need a diltiazem drip if she sustains or exceeds 130 Cardiology consulted pending recommendations Troponin negative Likely secondary to acute heart failure Acute heart failure Status: Acute Assessment and Plan: IV Lasix x1 given a ED Lynch for aggressive diuresis, DC once respiratory status improves Lasix 40 mg scheduled for the morning, adjust as needed monitor blood pressure closely echo July 20 showed Left ventricular systolic function is normal, estimated at 55-60%. moderate to severe tricuspid valve regurgitation. Severity ofregurgitation may be underestimated due to eccentricity of the jet. Pulmonary hypertension, estimated pulmonary arterial systolic pressureis 50 mmHg. Possible resulting from mitral tricuspid valve regurgitation Consult operational risk manager for evaluation treatment UTI (urinary tract infection): Code(s): N39.0 - Urinary tract infection, site not specified Status: Acute Assessment and Plan: Sepsis lactic 2.4, BP 100 over 50s, AFib with RVR 120, UA 1+ ketones positive for nitrates positive leukocyte Estrace 4+ bacteria IV Rocephin No IV fluids due to overload Cultures and sensitivities pending Lynch due to aggressive diuresis will swicth to PO antibitoics -keflex as culture is back-kleb pneumoniae Wounds, multiple: Code(s): T07.XXXA - Unspecified multiple injuries, initial encounter Status: Chronic Assessment and Plan: Bilateral lower extremity lymphedema with areas of weeping, no signs of infection Wound care consulted for management Hypokalemia: Code(s): E87.6 - Hypokalemia Status: Acute Assessment and Plan: 40 mEq x1 given in ED Replete as needed Daily BMP Time Spent With Patient Time with patient: Greater than 35 minutes Subjective Date/time seen: 09/02/24 08:57 Interval history: Pt is seen and examined. Patient feels better, dyspnea is improving. But reports significant dyspnea with mild exertion. Patient denies chest pain abdomen pain nausea vomiting diarrhea. HR stable- 90's Review of Systems Review of Systems: 12 systems were reviewed and are negativ e except for as per HPI. Exam Narrative: GENERAL: Pleasant, in no acute distress. Well-nourished. - EYES: EOMI. Anicteric. - HENT: Moist mucous membranes. - LUNGS: Coarse breath sound bilateral base - CARDIOVASCULAR: Regular rate and rhyth m. No murmur. No JVD. - ABDOMEN: Soft, non-tender and non-dist ended. No palpable masses. - EXTREMITIES: 2+ lower extremities priya ma. Peripheral pulses 2+. Non-tender. - NEUROLOGIC: No focal neurological defi cits. CN II-XII grossly intact. - PSYCHIATRIC: Awake, Alert and oriented x 3. Appropriate mood and affect. - SKIN:swelling, lower extremities, marylu ent has lymphedema - LYMPH: No cervical lymphadenopathy. Objective Data Vital Signs Vital Signs: Vital Signs - 24 hr 09/01/24 09:09 09/01/24 10:08 09/01/24 10:00 Temperature Pulse Rate 93 81 Respiratory Rate Blood Pressure Pulse Oximetry Oxygen Delivery Room Air 09/01/24 11:07 09/01/24 11:10 09/01/24 12:00 Temperature 98.1 F Pulse Rate 84 84 Respiratory Rate 18 18 Blood Pressure 107/60 Pulse Oximetry 94 97 97 Oxygen Delivery Room Air Room Air 09/01/24 15:19 09/01/24 16:38 09/01/24 18:49 Temperature 97.4 F L 97.5 F L Pulse Rate 71 70 Respiratory Rate 18 18 Blood Pressure 97/63 L 103/69 Pulse Oximetry 97 99 Oxygen Delivery Room Air 09/01/24 20:00 09/01/24 21:32 09/02/24 00:00 Temperature 97.6 F 98.0 F Pulse Rate 88 88 75 Respiratory Rate 18 18 Blood Pressure 109/58 L 93/56 L Pulse Oximetry 100 100 Oxygen Delivery 09/01/24 20:00 09/02/24 04:00 Temperature 97.7 F Pulse Rate 67 Respiratory Rate 18 Blood Pressure 101/60 Pulse Oximetry 98 Oxygen Delivery Room Air Intake/Output Intake/Output: Intake & Output 08/30/24 08/31/24 09/01/24 09/02/24 23:59 23:59 23:59 23:59 Intake Total 100 1042 Output Total 1100 0 Balance 100 -58 0 Meds/Results Medications: Active Medications Generic Name Dose Route Start Last Admin Trade Name Freq PRN Reason Stop Dose Admin Acetaminophen 650 mg 08/31/24 18:49 08/31/24 20:35 Acetaminophen 325 Mg Tablet PO 650 mg Q4H PRN Administration Mild Pain (1-3) or Fever Hydrocodone Bitart/Acetaminophen 1 tab 08/31/24 18:49 Hydrocodone/Acetaminophen (*Crx) 5-325 Mg Tablet PO Q4H PRN Moderate Pain (4-6) Diltiazem HCl 120 mg 08/31/24 19:00 09/01/24 09:09 Diltiazem Hcl Cd 120 Mg Cap.24hr PO 120 mg DAILY YONI Administration Docusate Sodium 100 mg 08/31/24 19:00 09/01/24 17:38 Docusate Sodium 100 Mg Capsule PO 100 mg BID YONI Administration Enoxaparin Sodium 40 mg 09/01/24 09:00 09/01/24 09:08 Enoxaparin 40 Mg/0.4 Ml Syringe SUB-Q 40 mg DAILY YONI Administration Furosemide 40 mg 09/01/24 09:00 09/01/24 09:09 Furosemide Inj 40 Mg/4 Ml Vial IV PUSH 40 mg DAILY YONI Administration Metoprolol Tartrate 25 mg 08/31/24 21:00 09/01/24 21:32 Metoprolol Tartrate 25 Mg Tablet PO 25 mg Q12HR YONI Administration Midodrine 10 mg 08/31/24 19:05 09/01/24 17:38 Midodrine Hcl 10 Mg Tablet PO 10 mg TID YONI Administration Radiology Results: ITS Impressions Chest X-Ray 08/31/24 12:07 IMPRESSION: 1. Mild atelectasis in left midlung zone. 2. Cardiomegaly. Labs Labs: Laboratory Results - last 24 hr 09/01/24 15:44 Sodium 142 Potassium 3.4 Chloride 104 Carbon Dioxide 27 Anion Gap 11 BUN 15 Creatinine 0.90 Estim Creat Clear Calc 82 Estimated GFR > 60 Glucose 125 H Calcium 8.4 Quality VTE Prophylaxis VTE prophylaxis: mechanical ordered and pharmacologic ordered
--- NOTE | 2024-09-02 11:11 | PCOTNOTE ---
The patient treatment was not able to be completed MD in the room. Will plan to continue treatment per plan of care.
[2024-09-02] MEDS: cefTRIAXone 2 GM/NS 100 ML 2 GM/100 ML BAG IVPB (12:56)
--- NOTE | 2024-09-02 13:40 | PC.NURSE ---
LATE ENTRY omitted 09/02/24 1341. pt. presented to ED 08/31/24 without a mathis catheter. PHYSICIAN SURGEON had [facility] from [facility] to place indwelling mathis catheter that was placed in this facility by this RN on 08/31/24 at 1302
--- NOTE | 2024-09-02 14:42 | PCOTNOTE ---
Attempted again this afternoon. Patient had just finished up with PT services and laid back down with getting a dressing change. Patient declined this afternoon, requested OT come back tomorrow for treatment session.
[2024-09-02 15:59] LABS: Anion Gap 9 mmol/L (4-12); Blood Urea Nitrogen 16 mg/dL (7-17); Calcium 8.3 mg/dL (8.4-10.2); Carbon Dioxide 27 mmol/L (22-30); Chloride 104 mmol/L (98-107); Estimated CRCL calculation 82 ml/min; Estimated Glomerular Filt Rate > 60; Glucose 117 mg/dL (65-110); Potassium 3.2 mmol/L (3.4-5.0); Sodium 140 mmol/L (137-145)
[2024-09-03] VITALS (7 sets, daily range): BP systolic 98–121; BP diastolic 52–65; PULSE 72–88; RESP 16–20; TEMP 36.2–36.6; O2SAT 93–98
--- NOTE | 2024-09-03 08:00 | P.PNIM_ITS ---
Progress Note: A&P Assessment and Plan (1) Paroxysmal atrial fibrillation: Code(s): I48.0 - Paroxysmal atrial fibrillation Status: Acute (2) Hypokalemia: Code(s): E87.6 - Hypokalemia Status: Acute (3) Atrial fibrillation with RVR: Code(s): I48.91 - Unspecified atrial fibrillation Status: Acute Plan 63-year-old female well known to this hospital with history of AFib and chronic ulcers on lower extremity lymphedema presents due to palpitations and nausea. Patient states that she recently discharged home from rehab, about 10 take its ago and felt better than she had a very long time. The last 3 days or so she states that she was getting weaker and tired and thought it was due to her anemia. This morning when standing she was dizzy had a headache and felt like she was going to fall so she came to the emergency room. Patient was found to be in AFib with RVR with a rate of 120. Patient states that while she was home she was compliant with her medication and diet. In the ED potassium was 3.1, lactic acid 2.4, proBNP 4320, UA positive for nitrates and trace leukocyte esterase started on Rocephin in ED. chest x-ray shows pulmonary edema cardiomegaly. EKG shows AFib with RVR rate of 122, Atrial fibrillation with rapid ventricular response: Code(s): I48.91 - Unspecified atrial fibrillation Status: Acute Assessment and Plan: Current rate below 130, patient may need a diltiazem drip if she sustains or exceeds 130 Cardiology consulted -no new changes- will need holter monitor Troponin negative Likely secondary to acute heart failure wkg: Compared to ECG 08/31/2024 11:19:50 NO SIGNIFICANT CHANGE Acute heart failure Status: Acute Assessment and Plan: IV Lasix x1 given a ED Lynch for aggressive diuresis, DC once respiratory status improves Lasix 40 mg scheduled for the morning, adjust as needed monitor blood pressure closely echo July 20 showed Left ventricular systolic function is normal, estimated at 55-60%. moderate to severe tricuspid valve regurgitation. Severity ofregurgitation may be underestimated due to eccentricity of the jet. Pulmonary hypertension, estimated pulmonary arterial systolic pressureis 50 mmHg. Possible resulting from mitral tricuspid valve regurgitation Consult hotel registration clerk for evaluation treatment UTI (urinary tract infection): Code(s): N39.0 - Urinary tract infection, site not specified Status: Acute Assessment and Plan: Sepsis lactic 2.4, BP 100 over 50s, AFib with RVR 120, UA 1+ ketones positive for nitrates positive leukocyte Estrace 4+ bacteria IV Rocephin No IV fluids due to overload Cultures and sensitivities pending Lynch due to aggressive diuresis will switch to PO antibitoics -keflex as culture is back-kleb pneumoniae Wounds, multiple: Code(s): T07.XXXA - Unspecified multiple injuries, initial encounter Status: Chronic Assessment and Plan: Bilateral lower extremity lymphedema with areas of weeping, no signs of infection Wound care consulted for management Hypokalemia: Code(s): E87.6 - Hypokalemia Status: Acute Assessment and Plan: 40 mEq x1 given in ED Replete as needed Daily BMP Time Spent With Patient Time with patient: Greater than 35 minutes Subjective Date/time seen: 09/03/24 08:00 Interval history: Pt is seen and examined. Patient feels better, dyspnea is improving. But reports significant dyspnea with mild exertion. Patient denies chest pain abdomen pain nausea vomiting diarrhea. HR stable- 90's Review of Systems Review of Systems: 12 systems were reviewed and are negativ e except for as per HPI. Exam Narrative: GENERAL: Pleasant, in no acute distress. Well-nourished. - EYES: EOMI. Anicteric. - HENT: Moist mucous membranes. - LUNGS: Coarse breath sound bilateral base - CARDIOVASCULAR: Regular rate and rhyth m. No murmur. No JVD. - ABDOMEN: Soft, non-tender and non-dist ended. No palpable masses. - EXTREMITIES: 2+ lower extremities priya ma. Peripheral pulses 2+. Non-tender. - NEUROLOGIC: No focal neurological defi cits. CN II-XII grossly intact. - PSYCHIATRIC: Awake, Alert and oriented x 3. Appropriate mood and affect. - SKIN:swelling, lower extremities, marylu ent has lymphedema - LYMPH: No cervical lymphadenopathy. Objective Data Vital Signs Vital Signs: Vital Signs - 24 hr 09/02/24 08:56 09/02/24 08:58 09/02/24 10:00 Temperature Pulse Rate 77 93 90 Respiratory Rate 18 14 Blood Pressure 101/53 L 95/61 L Pulse Oximetry 98 96 09/02/24 14:00 09/02/24 18:00 09/02/24 20:16 Temperature 98 F Pulse Rate 76 72 70 Respiratory Rate 14 14 Blood Pressure 100/69 96/68 L Pulse Oximetry 98 98 09/02/24 20:39 09/03/24 04:54 Temperature 97.7 F 97.2 F L Pulse Rate 78 88 Respiratory Rate 20 16 Blood Pressure 104/69 98/59 L Pulse Oximetry 93 93 Intake/Output Intake/Output: Intake & Output 08/31/24 09/01/24 09/02/24 09/03/24 23:59 23:59 23:59 23:59 Intake Total 100 1042 720 Output Total 1100 1350 200 Balance 100 -58 -630 -200 Meds/Results Medications: Active Medications Generic Name Dose Route Start Last Admin Trade Name Freq PRN Reason Stop Dose Admin Acetaminophen 650 mg 08/31/24 18:49 08/31/24 20:35 Acetaminophen 325 Mg Tablet PO 650 mg Q4H PRN Administration Mild Pain (1-3) or Fever Hydrocodone Bitart/Acetaminophen 1 tab 08/31/24 18:49 Hydrocodone/Acetaminophen (*Crx) 5-325 Mg Tablet PO Q4H PRN Moderate Pain (4-6) Cephalexin HCl 500 mg 09/03/24 09:00 Cephalexin 500 Mg Capsule PO 09/07/24 21:01 Q12HR YONI Diltiazem HCl 120 mg 08/31/24 19:00 09/02/24 08:56 Diltiazem Hcl Cd 120 Mg Cap.24hr PO 120 mg DAILY YONI Administration Docusate Sodium 100 mg 08/31/24 19:00 09/02/24 17:13 Docusate Sodium 100 Mg Capsule PO 100 mg BID YONI Administration Enoxaparin Sodium 40 mg 09/01/24 09:00 09/02/24 08:57 Enoxaparin 40 Mg/0.4 Ml Syringe SUB-Q 40 mg DAILY YONI Administration Furosemide 40 mg 09/01/24 09:00 09/02/24 08:55 Furosemide Inj 40 Mg/4 Ml Vial IV PUSH 40 mg DAILY YONI Administration Metoprolol Tartrate 25 mg 08/31/24 21:00 09/02/24 20:16 Metoprolol Tartrate 25 Mg Tablet PO 25 mg Q12HR YONI Administration Midodrine 10 mg 08/31/24 19:05 09/02/24 17:13 Midodrine Hcl 10 Mg Tablet PO 10 mg TID YONI Administration Radiology Results: ITS Impressions Chest X-Ray 08/31/24 12:07 IMPRESSION: 1. Mild atelectasis in left midlung zone. 2. Cardiomegaly. Labs Labs: Laboratory Results - last 24 hr 09/02/24 15:27 Sodium 140 Potassium 3.2 L Chloride 104 Carbon Dioxide 27 Anion Gap 9 BUN 16 Creatinine 0.90 Estim Creat Clear Calc 82 Estimated GFR > 60 Glucose 117 H Calcium 8.3 L Quality VTE Prophylaxis VTE prophylaxis: mechanical ordered and pharmacologic ordered
[2024-09-03] MEDS: DOCUSATE SODIUM 100 MG CAPSULE PO ×2 (08:17→17:26)
[2024-09-03] MEDS: dilTIAZem HCL CD 120 MG CAP.24HR PO (08:17)
[2024-09-03] MEDS: METOPROLOL TARTRATE 25 MG TABLET PO ×2 (08:17→20:09)
[2024-09-03] MEDS: MIDODRINE HCL 10 MG TABLET PO ×3 (08:17→17:26)
[2024-09-03] MEDS: ENOXAPARIN 40 MG/0.4 ML SYRINGE SUB-Q (08:17)
[2024-09-03] MEDS: CEPHALEXIN 500 MG CAPSULE PO ×2 (08:17→20:10)
[2024-09-03 09:37] LABS: Anion Gap 7 mmol/L (4-12); Blood Urea Nitrogen 16 mg/dL (7-17); Calcium 8.5 mg/dL (8.4-10.2); Carbon Dioxide 30 mmol/L (22-30); Chloride 104 mmol/L (98-107); Estimated CRCL calculation 92 ml/min; Estimated Glomerular Filt Rate > 60; Glucose 98 mg/dL (65-110); Potassium 3.1 mmol/L (3.4-5.0); Sodium 141 mmol/L (137-145)
[2024-09-03] MEDS: POTASSIUM CHLORIDE 20 MEQ ER TABLET 40 MEQ PO (10:49)
[2024-09-03] MEDS: FERROUS SULFATE 325 MG TABLET DR PO ×2 (10:49→17:26)
[2024-09-03] MEDS: FUROSEMIDE 40 MG TABLET PO (12:21)
[2024-09-03 18:01] LABS: Anion Gap 8 mmol/L (4-12); Blood Urea Nitrogen 17 mg/dL (7-17); Calcium 8.2 mg/dL (8.4-10.2); Carbon Dioxide 28 mmol/L (22-30); Chloride 104 mmol/L (98-107); Estimated CRCL calculation 92 ml/min; Estimated Glomerular Filt Rate > 60; Glucose 106 mg/dL (65-110); Potassium 3.6 mmol/L (3.4-5.0); Sodium 140 mmol/L (137-145)
[2024-09-04 04:58] VITALS: BP 117/63; PULSE 75; RESP 16; TEMP 36.8; O2SAT 96
[2024-09-04 07:44] LABS: Anion Gap 5 mmol/L (4-12); Blood Urea Nitrogen 16 mg/dL (7-17); Calcium 8.3 mg/dL (8.4-10.2); Carbon Dioxide 30 mmol/L (22-30); Chloride 104 mmol/L (98-107); Estimated CRCL calculation 93 ml/min; Estimated Glomerular Filt Rate > 60; Glucose 81 mg/dL (65-110); Potassium 3.3 mmol/L (3.4-5.0); Sodium 139 mmol/L (137-145)
[2024-09-04 08:38] VITALS: BP 109/56; PULSE 83; RESP 18; TEMP 36.7; O2SAT 97
[2024-09-04 09:25] VITALS: PULSE 87
[2024-09-04] MEDS: METOPROLOL TARTRATE 25 MG TABLET PO ×2 (09:25→20:17)
[2024-09-04] MEDS: FUROSEMIDE 40 MG TABLET PO (09:25)
[2024-09-04] MEDS: DOCUSATE SODIUM 100 MG CAPSULE PO ×2 (09:26→16:12)
[2024-09-04] MEDS: FERROUS SULFATE 325 MG TABLET DR PO ×2 (09:26→16:12)
[2024-09-04] MEDS: ENOXAPARIN 40 MG/0.4 ML SYRINGE SUB-Q (09:26)
[2024-09-04] MEDS: dilTIAZem HCL CD 120 MG CAP.24HR PO (09:26)
[2024-09-04] MEDS: CEPHALEXIN 500 MG CAPSULE PO ×2 (09:26→20:19)
[2024-09-04] MEDS: MIDODRINE HCL 10 MG TABLET PO ×3 (09:26→16:12)
--- NOTE | 2024-09-04 09:32 | P.PNIM_ITS ---
Progress Note: A&P Assessment and Plan (1) Paroxysmal atrial fibrillation: Code(s): I48.0 - Paroxysmal atrial fibrillation Status: Acute (2) Hypokalemia: Code(s): E87.6 - Hypokalemia Status: Acute (3) Atrial fibrillation with RVR: Code(s): I48.91 - Unspecified atrial fibrillation Status: Acute Plan 63-year-old female well known to this hospital with history of AFib and chronic ulcers on lower extremity lymphedema presents due to palpitations and nausea. Patient states that she recently discharged home from rehab, about 10 take its ago and felt better than she had a very long time. The last 3 days or so she states that she was getting weaker and tired and thought it was due to her anemia. This morning when standing she was dizzy had a headache and felt like she was going to fall so she came to the emergency room. Patient was found to be in AFib with RVR with a rate of 120. Patient states that while she was home she was compliant with her medication and diet. In the ED potassium was 3.1, lactic acid 2.4, proBNP 4320, UA positive for nitrates and trace leukocyte esterase started on Rocephin in ED. chest x-ray shows pulmonary edema cardiomegaly. EKG shows AFib with RVR rate of 122, Atrial fibrillation with rapid ventricular response: Code(s): I48.91 - Unspecified atrial fibrillation Status: Acute Assessment and Plan: Current rate below 130, patient may need a diltiazem drip if she sustains or exceeds 130 Cardiology consulted -no new changes- will need holter monitor Troponin negative Likely secondary to acute heart failure wkg: Compared to ECG 08/31/2024 11:19:50 NO SIGNIFICANT CHANGE Acute heart failure Status: Acute Assessment and Plan: IV Lasix x1 given a ED Mathis for aggressive diuresis, DC once respiratory status improves Lasix 40 mg scheduled for the morning, adjust as needed monitor blood pressure closely echo July 20 showed Left ventricular systolic function is normal, estimated at 55-60%. moderate to severe tricuspid valve regurgitation. Severity ofregurgitation may be underestimated due to eccentricity of the jet. Pulmonary hypertension, estimated pulmonary arterial systolic pressures 50 mmHg. Possible resulting from mitral tricuspid valve regurgitation Consult geospatial technologist for evaluation treatment- no new orderes from cards. will need f/u as an outpt UTI (urinary tract infection): Code(s): N39.0 - Urinary tract infection, site not specified Status: Acute Assessment and Plan: Sepsis lactic 2.4, BP 100 over 50s, AFib with RVR 120, UA 1+ ketones positive for nitrates positive leukocyte Estrace 4+ bacteria IV Rocephin No IV fluids due to overload Cultures and sensitivities pending Mathis due to aggressive diuresis will switch to PO antibitoics -keflex as culture is back-kleb pneumoniae Wounds, multiple: Code(s): T07.XXXA - Unspecified multiple injuries, initial encounter Status: Chronic Assessment and Plan: Bilateral lower extremity lymphedema with areas of weeping, no signs of infection Wound care consulted for management Hypokalemia: Code(s): E87.6 - Hypokalemia Status: Acute Assessment and Plan: 40 mEq x1 given in ED Replete as needed Daily BMP Time Spent With Patient Time with patient: Greater than 35 minutes Subjective Date/time seen: 09/04/24 09:32 Interval history: Pt is seen and examined. she is up in the chair- resting with eyes closed Patient feels better, dyspnea is improving. But reports significant dyspnea with mild exertion. Patient denies chest pain abdomen pain nausea vomiting diarrhea. HR stable- 90's. working with care coordination for placement. mathis is removed Review of Systems Review of Systems: 12 systems were reviewed and are negativ e except for as per HPI. Exam Narrative: GENERAL: Pleasant, in no acute distress. Well-nourished. - EYES: EOMI. Anicteric. - HENT: Moist mucous membranes. - LUNGS: Coarse breath sound bilateral base - CARDIOVASCULAR: Regular rate and rhyth m. No murmur. No JVD. - ABDOMEN: Soft, non-tender and non-dist ended. No palpable masses. - EXTREMITIES: 2+ lower extremities priya ma. Peripheral pulses 2+. Non-tender. - NEUROLOGIC: No focal neurological defi cits. CN II-XII grossly intact. - PSYCHIATRIC: Awake, Alert and oriented x 3. Appropriate mood and affect. - SKIN:swelling, lower extremities, marylu ent has lymphedema - LYMPH: No cervical lymphadenopathy. Objective Data Vital Signs Vital Signs: Vital Signs - 24 hr 09/03/24 13:05 09/03/24 16:37 09/03/24 19:53 Temperature 97.1 F L 98 F 97.8 F Pulse Rate 83 83 79 Respiratory Rate 20 18 16 Blood Pressure 101/65 106/58 L 121/65 Pulse Oximetry 94 97 98 09/03/24 20:09 09/04/24 04:58 09/04/24 08:38 Temperature 98.2 F 98.1 F Pulse Rate 72 75 83 Respiratory Rate 16 18 Blood Pressure 117/63 109/56 L Pulse Oximetry 96 97 09/04/24 09:25 Temperature Pulse Rate 87 Respiratory Rate Blood Pressure Pulse Oximetry Intake/Output Intake/Output: Intake & Output 09/01/24 09/02/24 09/03/24 09/04/24 23:59 23:59 23:59 23:59 Intake Total 3502 652 4846 240 Output Total 1100 1350 500 750 Balance -58 -630 590 -510 Meds/Results Medications: Active Medications Generic Name Dose Route Start Last Admin Trade Name Freq PRN Reason Stop Dose Admin Acetaminophen 650 mg 08/31/24 18:49 08/31/24 20:35 Acetaminophen 325 Mg Tablet PO 650 mg Q4H PRN Administration Mild Pain (1-3) or Fever Hydrocodone Bitart/Acetaminophen 1 tab 08/31/24 18:49 Hydrocodone/Acetaminophen (*Crx) 5-325 Mg Tablet PO Q4H PRN Moderate Pain (4-6) Cephalexin HCl 500 mg 09/03/24 09:00 09/04/24 09:26 Cephalexin 500 Mg Capsule PO 09/07/24 21:01 500 mg Q12HR YONI Administration Diltiazem HCl 120 mg 08/31/24 19:00 09/04/24 09:26 Diltiazem Hcl Cd 120 Mg Cap.24hr PO 120 mg DAILY YONI Administration Docusate Sodium 100 mg 08/31/24 19:00 09/04/24 09:26 Docusate Sodium 100 Mg Capsule PO 100 mg BID YONI Administration Enoxaparin Sodium 40 mg 09/01/24 09:00 09/04/24 09:26 Enoxaparin 40 Mg/0.4 Ml Syringe SUB-Q 40 mg DAILY YONI Administration Ferrous Sulfate 325 mg 09/03/24 09:00 09/04/24 09:26 Ferrous Sulfate [address] PO 325 mg BID YONI Administration Furosemide 40 mg 09/03/24 11:05 09/04/24 09:25 Furosemide 40 Mg Tablet PO 40 mg DAILY YONI Administration Metoprolol Tartrate 25 mg 08/31/24 21:00 09/04/24 09:25 Metoprolol Tartrate 25 Mg Tablet PO 25 mg Q12HR YONI Administration Midodrine 10 mg 08/31/24 19:05 09/04/24 09:26 Midodrine Hcl 10 Mg Tablet PO 10 mg TID YONI Administration Radiology Results: ITS Impressions Chest X-Ray 08/31/24 12:07 IMPRESSION: 1. Mild atelectasis in left midlung zone. 2. Cardiomegaly. Labs Labs: Laboratory Results - last 24 hr 09/03/24 09/03/24 09/04/24 08:49 17:00 07:11 Sodium 141 140 139 Potassium 3.1 L 3.6 3.3 L Chloride 104 104 104 Carbon Dioxide 30 28 30 Anion Gap 7 8 5 BUN 16 17 16 Creatinine 0.80 0.80 0.80 Estim Creat Clear Calc 92 92 93 Estimated GFR > 60 > 60 > 60 Glucose 98 106 81 Calcium 8.5 8.2 L 8.3 L Quality VTE Prophylaxis VTE prophylaxis: mechanical ordered and pharmacologic ordered
--- NOTE | 2024-09-04 11:16 | PC.NURSE ---
Foot pumps ordered for patient, called [facility] for foot pumps, Ed from [facility] said that the hospital no longer carries foot pumps. Patient has open areas to posterior legs therefore SCD's were not placed.
[2024-09-04 13:45] VITALS: BP 112/50; PULSE 92; RESP 20; TEMP 36.2; O2SAT 98
[2024-09-04 17:51] VITALS: BP 94/61; PULSE 83; RESP 20; TEMP 36.2; O2SAT 96
[2024-09-04 20:17] VITALS: PULSE 87
[2024-09-05] VITALS (8 sets, daily range): BP systolic 95–116; BP diastolic 41–67; PULSE 78–112; RESP 16–18; TEMP 36.5–37; O2SAT 97–100
[2024-09-05 06:04] LABS: Anion Gap 5 mmol/L (4-12); Blood Urea Nitrogen 15 mg/dL (7-17); Calcium 8.3 mg/dL (8.4-10.2); Carbon Dioxide 31 mmol/L (22-30); Chloride 104 mmol/L (98-107); Estimated CRCL calculation 93 ml/min; Estimated Glomerular Filt Rate > 60; Glucose 90 mg/dL (65-110); Potassium 3.3 mmol/L (3.4-5.0); Sodium 140 mmol/L (137-145)
--- NOTE | 2024-09-05 07:40 | P.PNIM_ITS ---
Progress Note: A&P Assessment and Plan (1) Paroxysmal atrial fibrillation: Code(s): I48.0 - Paroxysmal atrial fibrillation Status: Acute (2) Hypokalemia: Code(s): E87.6 - Hypokalemia Status: Acute (3) Atrial fibrillation with RVR: Code(s): I48.91 - Unspecified atrial fibrillation Status: Acute Plan 63-year-old female well known to this hospital with history of AFib and chronic ulcers on lower extremity lymphedema presents due to palpitations and nausea. Patient states that she recently discharged home from rehab, about 10 take its ago and felt better than she had a very long time. The last 3 days or so she states that she was getting weaker and tired and thought it was due to her anemia. This morning when standing she was dizzy had a headache and felt like she was going to fall so she came to the emergency room. Patient was found to be in AFib with RVR with a rate of 120. Patient states that while she was home she was compliant with her medication and diet. In the ED potassium was 3.1, lactic acid 2.4, proBNP 4320, UA positive for nitrates and trace leukocyte esterase started on Rocephin in ED. chest x-ray shows pulmonary edema cardiomegaly. EKG shows AFib with RVR rate of 122, Atrial fibrillation with rapid ventricular response: Code(s): I48.91 - Unspecified atrial fibrillation Status: Acute Assessment and Plan: Current rate below 130, patient may need a diltiazem drip if she sustains or exceeds 130 Cardiology consulted -no new changes- will need holter monitor Troponin negative Likely secondary to acute heart failure wkg: Compared to ECG 08/31/2024 11:19:50 NO SIGNIFICANT CHANGE -HR stable-80/90's Acute heart failure Status: Acute Assessment and Plan: IV Lasix x1 given a ED Lynch for aggressive diuresis, DC once respiratory status improves Lasix 40 mg scheduled for the morning, adjust as needed monitor blood pressure closely echo July 20 showed Left ventricular systolic function is normal, estimated at 55-60%. moderate to severe tricuspid valve regurgitation. Severity ofregurgitation may be underestimated due to eccentricity of the jet. Pulmonary hypertension, estimated pulmonary arterial systolic pressures 50 mmHg. Possible resulting from mitral tricuspid valve regurgitation Consult fruit grading supervisor for evaluation treatment- no new orders from cards. will need f/u as an outpt add k supplements continue to monitor I/O would be prudent to add jardiance but with her frequent UTI may not be a good idea at this time UTI (urinary tract infection): Code(s): N39.0 - Urinary tract infection, site not specified Status: Acute Assessment and Plan: Sepsis lactic 2.4, BP 100 over 50s, AFib with RVR 120, UA 1+ ketones positive for nitrates positive leukocyte Estrace 4+ bacteria IV Rocephin No IV fluids due to overload Cultures and sensitivities pending Lynch due to aggressive diuresis will switch to PO antibiotics -keflex as culture is back-kleb pneumoniae Wounds, multiple: Code(s): T07.XXXA - Unspecified multiple injuries, initial encounter Status: Chronic Assessment and Plan: Bilateral lower extremity lymphedema with areas of weeping, no signs of infection Wound care consulted for management Hypokalemia: Code(s): E87.6 - Hypokalemia Status: Acute Assessment and Plan: 40 mEq x1 given in ED Replete as needed Daily BMP Time Spent With Patient Time with patient: Greater than 35 minutes Subjective Date/time seen: 09/05/24 07:40 Interval history: Pt is seen and examined. doing well, no acute events overnight working with care coordination for placement. HR [id number] Review of Systems Review of Systems: 12 systems were reviewed and are negativ e except for as per HPI. Exam Narrative: GENERAL: Pleasant, in no acute distress. Well-nourished. - EYES: EOMI. Anicteric. - HENT: Moist mucous membranes. - LUNGS: Coarse breath sound bilateral base - CARDIOVASCULAR: Regular rate and rhyth m. No murmur. No JVD. - ABDOMEN: Soft, non-tender and non-dist ended. No palpable masses. - EXTREMITIES: 2+ lower extremities priya ma. Peripheral pulses 2+. Non-tender. - NEUROLOGIC: No focal neurological defi cits. CN II-XII grossly intact. - PSYCHIATRIC: Awake, Alert and oriented x 3. Appropriate mood and affect. - SKIN:swelling, lower extremities, marylu ent has lymphedema - LYMPH: No cervical lymphadenopathy. Objective Data Vital Signs Vital Signs: Vital Signs - 24 hr 09/04/24 08:38 09/04/24 09:25 09/04/24 09:36 Temperature 98.1 F Pulse Rate 83 87 Respiratory Rate 18 Blood Pressure 109/56 L Pulse Oximetry 97 Oxygen Delivery Room Air 09/04/24 13:45 09/04/24 17:51 09/04/24 20:17 Temperature 97.1 F L 97.2 F L Pulse Rate 92 83 87 Respiratory Rate 20 20 Blood Pressure 112/50 L 94/61 L Pulse Oximetry 98 96 Oxygen Delivery 09/04/24 20:00 09/05/24 06:00 Temperature 98.0 F Pulse Rate 82 Respiratory Rate 18 Blood Pressure 95/56 L Pulse Oximetry 97 Oxygen Delivery Room Air Intake/Output Intake/Output: Intake & Output 09/02/24 09/03/24 09/04/24 09/05/24 23:59 23:59 23:59 23:59 Intake Total 720 1090 920 Output Total 1303 395 5239 200 Balance -630 590 -230 -200 Meds/Results Medications: Active Medications Generic Name Dose Route Start Last Admin Trade Name Freq PRN Reason Stop Dose Admin Acetaminophen 650 mg 08/31/24 18:49 08/31/24 20:35 Acetaminophen 325 Mg Tablet PO 650 mg Q4H PRN Administration Mild Pain (1-3) or Fever Hydrocodone Bitart/Acetaminophen 1 tab 08/31/24 18:49 Hydrocodone/Acetaminophen (*Crx) 5-325 Mg Tablet PO Q4H PRN Moderate Pain (4-6) Cephalexin HCl 500 mg 09/03/24 09:00 09/04/24 20:19 Cephalexin 500 Mg Capsule PO 09/07/24 21:01 500 mg Q12HR YONI Administration Diltiazem HCl 120 mg 08/31/24 19:00 09/04/24 09:26 Diltiazem Hcl Cd 120 Mg Cap.24hr PO 120 mg DAILY YONI Administration Docusate Sodium 100 mg 08/31/24 19:00 09/04/24 16:12 Docusate Sodium 100 Mg Capsule PO 100 mg BID YONI Administration Enoxaparin Sodium 40 mg 09/01/24 09:00 09/04/24 09:26 Enoxaparin 40 Mg/0.4 Ml Syringe SUB-Q 40 mg DAILY YONI Administration Ferrous Sulfate 325 mg 09/03/24 09:00 09/04/24 16:12 Ferrous Sulfate [address] PO 325 mg BID YONI Administration Furosemide 40 mg 09/03/24 11:05 09/04/24 09:25 Furosemide 40 Mg Tablet PO 40 mg DAILY YONI Administration Metoprolol Tartrate 25 mg 08/31/24 21:00 09/04/24 20:17 Metoprolol Tartrate 25 Mg Tablet PO 25 mg Q12HR YONI Administration Midodrine 10 mg 08/31/24 19:05 09/04/24 16:12 Midodrine Hcl 10 Mg Tablet PO 10 mg TID YONI Administration Radiology Results: ITS Impressions Chest X-Ray 08/31/24 12:07 IMPRESSION: 1. Mild atelectasis in left midlung zone. 2. Cardiomegaly. Labs Labs: Laboratory Results - last 24 hr 09/04/24 09/05/24 07:11 05:27 Sodium 139 140 Potassium 3.3 L 3.3 L Chloride 104 104 Carbon Dioxide 30 31 H Anion Gap 5 5 BUN 16 15 Creatinine 0.80 0.80 Estim Creat Clear Calc 93 93 Estimated GFR > 60 > 60 Glucose 81 90 Calcium 8.3 L 8.3 L Quality VTE Prophylaxis VTE prophylaxis: mechanical ordered and pharmacologic ordered
[2024-09-05] MEDS: MIDODRINE HCL 10 MG TABLET PO ×3 (09:22→17:29)
[2024-09-05] MEDS: FUROSEMIDE 40 MG TABLET PO (09:23)
[2024-09-05] MEDS: FERROUS SULFATE 325 MG TABLET DR PO ×2 (09:23→17:29)
[2024-09-05] MEDS: CEPHALEXIN 500 MG CAPSULE PO ×2 (09:23→21:29)
[2024-09-05] MEDS: DOCUSATE SODIUM 100 MG CAPSULE PO ×2 (09:24→17:29)
[2024-09-05] MEDS: POTASSIUM CHLORIDE 10 MEQ ER TABLET PO ×2 (09:24→17:29)
[2024-09-05] MEDS: ENOXAPARIN 40 MG/0.4 ML SYRINGE SUB-Q (09:25)
[2024-09-05] MEDS: METOPROLOL TARTRATE 25 MG TABLET PO ×2 (09:30→21:29)
[2024-09-05] MEDS: dilTIAZem HCL CD 120 MG CAP.24HR PO (09:30)
[2024-09-06] VITALS (9 sets, daily range): BP systolic 90–110; BP diastolic 48–72; PULSE 73–102; RESP 12–18; TEMP 36.3–36.7; O2SAT 91–100
[2024-09-06 06:13] LABS: Potassium 3.5 mmol/L (3.4-5.0)
[2024-09-06 06:28] LABS: Anion Gap 1 mmol/L (4-12); Blood Urea Nitrogen 15 mg/dL (7-17); Calcium 8.4 mg/dL (8.4-10.2); Carbon Dioxide 33 mmol/L (22-30); Chloride 105 mmol/L (98-107); Estimated CRCL calculation 83 ml/min; Estimated Glomerular Filt Rate > 60; Glucose 92 mg/dL (65-110); Sodium 139 mmol/L (137-145)
[2024-09-06] MEDS: POTASSIUM CHLORIDE 10 MEQ ER TABLET PO ×2 (08:38→17:21)
[2024-09-06] MEDS: METOPROLOL TARTRATE 25 MG TABLET PO ×2 (08:39→20:16)
[2024-09-06] MEDS: MIDODRINE HCL 10 MG TABLET PO ×3 (08:39→17:21)
[2024-09-06] MEDS: dilTIAZem HCL CD 120 MG CAP.24HR PO (08:39)
[2024-09-06] MEDS: FUROSEMIDE 40 MG TABLET PO ×2 (08:39→14:32)
[2024-09-06] MEDS: ENOXAPARIN 40 MG/0.4 ML SYRINGE SUB-Q (08:39)
[2024-09-06] MEDS: FERROUS SULFATE 325 MG TABLET DR PO ×2 (08:39→17:21)
[2024-09-06] MEDS: CEPHALEXIN 500 MG CAPSULE PO ×2 (08:39→20:15)
--- NOTE | 2024-09-06 08:53 | PM.IMPN ---
Progress Note: A&P Assessment and Plan (1) Paroxysmal atrial fibrillation: Code(s): I48.0 - Paroxysmal atrial fibrillation Status: Acute (2) Hypokalemia: Code(s): E87.6 - Hypokalemia Status: Acute (3) Atrial fibrillation with RVR: Code(s): I48.91 - Unspecified atrial fibrillation Status: Acute Plan 63-year-old female well known to this hospital with history of AFib and chronic ulcers on lower extremity lymphedema presents due to palpitations and nausea. Patient states that she recently discharged home from rehab, about 10 take its ago and felt better than she had a very long time. The last 3 days or so she states that she was getting weaker and tired and thought it was due to her anemia. This morning when standing she was dizzy had a headache and felt like she was going to fall so she came to the emergency room. Patient was found to be in AFib with RVR with a rate of 120. Patient states that while she was home she was compliant with her medication and diet. In the ED potassium was 3.1, lactic acid 2.4, proBNP 4320, UA positive for nitrates and trace leukocyte esterase started on Rocephin in ED. chest x-ray shows pulmonary edema cardiomegaly. EKG shows AFib with RVR rate of 122, Atrial fibrillation with rapid ventricular response: Code(s): I48.91 - Unspecified atrial fibrillation Status: Acute Assessment and Plan: Current rate below 130, patient may need a diltiazem drip if she sustains or exceeds 130 Cardiology consulted -no new changes- will need holter monitor Troponin negative Likely secondary to acute heart failure wkg: Compared to ECG 08/31/2024 11:19:50 NO SIGNIFICANT CHANGE -HR stable-80/90's Acute heart failure Status: Acute Assessment and Plan: IV Lasix x1 given a ED Lynch for aggressive diuresis, DC once respiratory status improves Lasix 40 mg scheduled for the morning, adjust as needed monitor blood pressure closely echo July 20 showed Left ventricular systolic function is normal, estimated at 55-60%. moderate to severe tricuspid valve regurgitation. Severity ofregurgitation may be underestimated due to eccentricity of the jet. Pulmonary hypertension, estimated pulmonary arterial systolic pressures 50 mmHg. Possible resulting from mitral tricuspid valve regurgitation Consult nursing home administrator for evaluation treatment- no new orders from cards. will need f/u as an outpt add k supplements continue to monitor I/O would be prudent to add jardiance but with her frequent UTI may not be a good idea at this time lasix 40 mg po x 1 UTI (urinary tract infection): Code(s): N39.0 - Urinary tract infection, site not specified Status: Acute Assessment and Plan: Sepsis lactic 2.4, BP 100 over 50s, AFib with RVR 120, UA 1+ ketones positive for nitrates positive leukocyte Estrace 4+ bacteria IV Rocephin No IV fluids due to overload Cultures and sensitivities pending Lynch was removed will switch to PO antibiotics -keflex as culture is back-kleb pneumoniae Wounds, multiple: Code(s): T07.XXXA - Unspecified multiple injuries, initial encounter Status: Chronic Assessment and Plan: Bilateral lower extremity lymphedema with areas of weeping, no signs of infection Wound care consulted for management Hypokalemia: Code(s): E87.6 - Hypokalemia Status: Acute Assessment and Plan: 40 mEq x1 given in ED Replete as needed Daily BMP Time Spent With Patient Time with patient: Greater than 35 minutes Subjective Date/time seen: 09/06/24 08:53 Interval history: Pt is seen and examined. doing well, no acute events overnight working with care coordination for placement. Was able to ambulate in the hallway, use steps. swelling is better but still some swelling to upper and lower extremities Review of Systems Review of Systems: weakness- slowly improving Constitutional: Constitutional: Denies body ache(s) Gastrointestinal: Gastrointestinal: Denies abdominal pain Musculoskeletal: Musculoskeletal: Denies back pain Exam Narrative: GENERAL: Pleasant, in no acute distress. Well-nourished. - EYES: EOMI. Anicteric. - HENT: Moist mucous membranes. - LUNGS: Coarse breath sound bilateral base - CARDIOVASCULAR: Regular rate and rhythm. No murmur. No JVD. - ABDOMEN: Soft, non-tender and non-distended. No palpable masses. - EXTREMITIES: 2+ lower extremities edema. Peripheral pulses 2+. Non-tender. - NEUROLOGIC: No focal neurological deficits. CN II-XII grossly intact. - PSYCHIATRIC: Awake, Alert and oriented x 3. Appropriate mood and affect. - SKIN:swelling, lower extremities, patient has lymphedema, trace upper extremities- improved - LYMPH: No cervical lymphadenopathy. Const: General: comfortable Objective Data Vital Signs Vital Signs: Vital Signs - 24 hr 09/05/24 09:30 09/05/24 10:00 09/05/24 09:20 Temperature 98.3 F Pulse Rate 112 H 98 Respiratory Rate 16 Blood Pressure 97/41 L Pulse Oximetry 100 Oxygen Delivery Room Air 09/05/24 14:00 09/05/24 18:00 09/05/24 21:29 Temperature 97.7 F 98.2 F Pulse Rate 88 78 78 Respiratory Rate 16 16 Blood Pressure 96/61 L 116/61 Pulse Oximetry 100 100 Oxygen Delivery 09/05/24 19:46 09/05/24 21:25 09/06/24 05:16 Temperature 98.6 F 97.4 F L Pulse Rate 99 78 90 Respiratory Rate 18 18 16 Blood Pressure 108/67 96/48 L Pulse Oximetry 100 100 98 Oxygen Delivery Room Air 09/06/24 08:37 09/06/24 08:39 Temperature Pulse Rate 102 H 102 H Respiratory Rate 18 Blood Pressure 106/64 Pulse Oximetry 98 Oxygen Delivery Intake/Output Intake/Output: Intake & Output 09/03/24 09/04/24 09/05/24 09/06/24 23:59 23:59 23:59 23:59 Intake Total 1090 920 840 Output Total 500 1150 1100 Balance 467 -411 -855 Meds/Results Medications: Active Medications Generic Name Dose Route Start Last Admin Trade Name Freq PRN Reason Stop Dose Admin Acetaminophen 650 mg 08/31/24 18:49 08/31/24 20:35 Acetaminophen 325 Mg Tablet PO 650 mg Q4H PRN Administration Mild Pain (1-3) or Fever Hydrocodone Bitart/Acetaminophen 1 tab 08/31/24 18:49 Hydrocodone/Acetaminophen (*Crx) 5-325 Mg Tablet PO Q4H PRN Moderate Pain (4-6) Cephalexin HCl 500 mg 09/03/24 09:00 09/06/24 08:39 Cephalexin 500 Mg Capsule PO 09/07/24 21:01 500 mg Q12HR YONI Administration Diltiazem HCl 120 mg 08/31/24 19:00 09/06/24 08:39 Diltiazem Hcl Cd 120 Mg Cap.24hr PO 120 mg DAILY YONI Administration Docusate Sodium 100 mg 08/31/24 19:00 09/06/24 08:40 Docusate Sodium 100 Mg Capsule PO Not Given BID [facility] Enoxaparin Sodium 40 mg 09/01/24 09:00 09/06/24 08:39 Enoxaparin 40 Mg/0.4 Ml Syringe SUB-Q 40 mg DAILY [facility] Administration Ferrous Sulfate 325 mg 09/03/24 09:00 09/06/24 08:39 Ferrous Sulfate [address] PO 325 mg BID [facility] Administration Furosemide 40 mg 09/03/24 11:05 09/06/24 08:39 Furosemide 40 Mg Tablet PO 40 mg DAILY [facility] Administration Metoprolol Tartrate 25 mg 08/31/24 21:00 09/06/24 08:39 Metoprolol Tartrate 25 Mg Tablet PO 25 mg Q12HR [facility] Administration Midodrine 10 mg 08/31/24 19:05 09/06/24 08:39 Midodrine Hcl 10 Mg Tablet PO 10 mg TID [facility] Administration Potassium Chloride 10 meq 09/05/24 08:00 09/06/24 08:38 Potassium Chloride 10 Meq Er Tablet PO 10 meq BIDWM YONI Administration Radiology Results: ITS Impressions Chest X-Ray 08/31/24 12:07 IMPRESSION: 1. Mild atelectasis in left midlung zone. 2. Cardiomegaly. Labs Labs: Laboratory Results - last 24 hr 09/06/24 05:33 Sodium 139 Potassium 3.5 Chloride 105 Carbon Dioxide 33 H Anion Gap 1 L BUN 15 Creatinine 0.90 Estim Creat Clear Calc 83 Estimated GFR > 60 Glucose 92 Calcium 8.4 Quality VTE Prophylaxis VTE prophylaxis: mechanical ordered and pharmacologic ordered
[2024-09-06 09:41] LABS: Hematocrit 30.3 % (37.0-47.0); Hemoglobin 9.3 g/dL (12.0-15.0); Mean Corpuscular HGB Conc 30.7 g/dl (32-36); Mean Corpuscular Hemoglobin 31.3 pg (26-34); Platelet Count Result 261 k/mm3 (150-375); Red Blood Count 2.97 M/mm3 (4.2-5.4); Red Cell Distribution Width 18.3 % (11.5-14.5); White Blood Count 4.5 K/mm3 (4.5-10.0)
[2024-09-06 09:48] LABS: Anion Gap 7 mmol/L (4-12); Blood Urea Nitrogen 15 mg/dL (7-17); Calcium 8.5 mg/dL (8.4-10.2); Carbon Dioxide 32 mmol/L (22-30); Chloride 103 mmol/L (98-107); Estimated CRCL calculation 93 ml/min; Estimated Glomerular Filt Rate > 60; Glucose 101 mg/dL (65-110); Potassium 3.6 mmol/L (3.4-5.0); Sodium 142 mmol/L (137-145)
[2024-09-07] VITALS (8 sets, daily range): BP systolic 105–170; BP diastolic 48–88; PULSE 64–105; RESP 18–20; TEMP 36.1–37; O2SAT 93–100
[2024-09-07] MEDS: ACETAMINOPHEN 325 MG TABLET 650 MG PO (05:09)
[2024-09-07 08:16] LABS: Hemoglobin 9.1 g/dL (12.0-15.0); Mean Corpuscular HGB Conc 31.4 g/dl (32-36); Mean Corpuscular Hemoglobin 31.8 pg (26-34); Mean Corpuscular Volume 101.4 fl (80-100); Mean Platelet Volume 9.1 fl (7.4-10.4); Platelet Count Result 238 k/mm3 (150-375); Red Blood Count 2.86 M/mm3 (4.2-5.4); Red Cell Distribution Width 18.1 % (11.5-14.5); White Blood Count 4.4 K/mm3 (4.5-10.0)
[2024-09-07] MEDS: CEPHALEXIN 500 MG CAPSULE PO ×2 (08:28→21:25)
[2024-09-07] MEDS: METOPROLOL TARTRATE 25 MG TABLET PO ×2 (08:28→21:23)
[2024-09-07] MEDS: dilTIAZem HCL CD 120 MG CAP.24HR PO (08:28)
[2024-09-07] MEDS: MIDODRINE HCL 10 MG TABLET PO ×3 (08:28→17:08)
[2024-09-07] MEDS: FUROSEMIDE 40 MG TABLET PO (08:28)
[2024-09-07] MEDS: POTASSIUM CHLORIDE 10 MEQ ER TABLET PO ×2 (08:29→17:08)
[2024-09-07] MEDS: ENOXAPARIN 40 MG/0.4 ML SYRINGE SUB-Q (08:29)
[2024-09-07] MEDS: FERROUS SULFATE 325 MG TABLET DR PO ×2 (08:29→17:08)
[2024-09-07 08:37] LABS: Anion Gap 5 mmol/L (4-12); Blood Urea Nitrogen 15 mg/dL (7-17); Calcium 8.2 mg/dL (8.4-10.2); Carbon Dioxide 32 mmol/L (22-30); Chloride 102 mmol/L (98-107); Estimated CRCL calculation 93 ml/min; Estimated Glomerular Filt Rate > 60; Glucose 83 mg/dL (65-110); Potassium 3.6 mmol/L (3.4-5.0); Sodium 139 mmol/L (137-145)
[2024-09-07 08:55] LABS: Band Neutrophils Percent 0 % (0-6); Neutrophils Absolute Manual 2.28 K/mm3 (1.7-7.2); Neutrophils Percent Manual 52 % (46-73); Total Cells Counted 100
[2024-09-07 08:56] LABS: Basophils Absolute Manual 0.04 K/mm3 (0.0-0.1); Basophils Percent Manual 1 % (0-1); Eosinophils Absolute Manual 0.22 K/mm3 (0.02-0.50); Eosinophils Percent Manual 5 % (0-4); Lymphocytes Absolute Manual 1.67 K/mm3 (1.1-4.5); Lymphocytes Percent Manual 38 % (18-44); Monocytes Absolute Manual 0.17 K/mm3 (0.1-0.90); Monocytes Percent Manual 4 % (3-9); Platelet Estimate Adequate (Adequate); Schistocytes None Seen
[2024-09-07 08:57] LABS: Atypical Lymphocytes Present
--- NOTE | 2024-09-07 12:16 | P.PNIM_ITS ---
Progress Note: A&P Assessment and Plan (1) Paroxysmal atrial fibrillation: Code(s): I48.0 - Paroxysmal atrial fibrillation Status: Acute (2) Hypokalemia: Code(s): E87.6 - Hypokalemia Status: Acute (3) Atrial fibrillation with RVR: Code(s): I48.91 - Unspecified atrial fibrillation Status: Acute Plan 63-year-old female well known to this hospital with history of AFib and chronic ulcers on lower extremity lymphedema presents due to palpitations and nausea. Patient states that she recently discharged home from rehab, about 10 take its ago and felt better than she had a very long time. The last 3 days or so she states that she was getting weaker and tired and thought it was due to her anemia. This morning when standing she was dizzy had a headache and felt like she was going to fall so she came to the emergency room. Patient was found to be in AFib with RVR with a rate of 120. Patient states that while she was home she was compliant with her medication and diet. In the ED potassium was 3.1, lactic acid 2.4, proBNP 4320, UA positive for nitrates and trace leukocyte esterase started on Rocephin in ED. chest x-ray shows pulmonary edema cardiomegaly. EKG shows AFib with RVR rate of 122, Atrial fibrillation with rapid ventricular response: Code(s): I48.91 - Unspecified atrial fibrillation Status: Acute Assessment and Plan: Current rate below 130, patient may need a diltiazem drip if she sustains or exceeds 130 Cardiology consulted -no new changes- will need holter monitor Troponin negative Likely secondary to acute heart failure wkg: Compared to ECG 08/31/2024 11:19:50 NO SIGNIFICANT CHANGE -HR stable-80/90's Acute heart failure Status: Acute Assessment and Plan: IV Lasix x1 given a ED Lynch for aggressive diuresis, DC once respiratory status improves Lasix 40 mg scheduled for the morning, adjust as needed monitor blood pressure closely echo July 20 showed Left ventricular systolic function is normal, estimated at 55-60%. moderate to severe tricuspid valve regurgitation. Severity ofregurgitation may be underestimated due to eccentricity of the jet. Pulmonary hypertension, estimated pulmonary arterial systolic pressures 50 mmHg. Possible resulting from mitral tricuspid valve regurgitation Consult realtime court reporter for evaluation treatment- no new orders from cards. will need f/u as an outpt add k supplements continue to monitor I/O would be prudent to add jardiance but with her frequent UTI may not be a good idea at this time lasix 40 mg po x 1 UTI (urinary tract infection): Code(s): N39.0 - Urinary tract infection, site not specified Status: Acute Assessment and Plan: Sepsis lactic 2.4, BP 100 over 50s, AFib with RVR 120, UA 1+ ketones positive for nitrates positive leukocyte Estrace 4+ bacteria IV Rocephin No IV fluids due to overload Cultures and sensitivities pending Lynch was removed will switch to PO antibiotics -keflex as culture is back-kleb pneumoniae Wounds, multiple: Code(s): T07.XXXA - Unspecified multiple injuries, initial encounter Status: Chronic Assessment and Plan: Bilateral lower extremity lymphedema with areas of weeping, no signs of infection Wound care consulted for management Hypokalemia: Code(s): E87.6 - Hypokalemia Status: Acute Assessment and Plan: 40 mEq x1 given in ED Replete as needed Daily BMP Time Spent With Patient Time with patient: Greater than 35 minutes Subjective Date/time seen: 09/07/24 12:16 Interval history: Pt is seen and examined. doing well, no acute events overnight waiting for auth.for placement Review of Systems Review of Systems: weakness- slowly improving Constitutional: Constitutional: Denies body ache(s) Gastrointestinal: Gastrointestinal: Denies abdominal pain Musculoskeletal: Musculoskeletal: Denies back pain Exam Narrative: GENERAL: Pleasant, in no acute distress. Well-nourished.up in the chair - EYES: EOMI. Anicteric. - HENT: Moist mucous membranes. - LUNGS: Coarse breath sound bilateral base - CARDIOVASCULAR: Regular rate and rhyth m. No murmur. No JVD. - ABDOMEN: Soft, non-tender and non-dist ended. No palpable masses. - EXTREMITIES: 2+ lower extremities priya ma. Peripheral pulses 2+. Non-tender. - NEUROLOGIC: No focal neurological defi cits. CN II-XII grossly intact. - PSYCHIATRIC: Awake, Alert and oriented x 3. Appropriate mood and affect. - SKIN:swelling, lower extremities, marylu ent has lymphedema, trace upper extremities- improved - LYMPH: No cervical lymphadenopathy. Const: General: comfortable Objective Data Vital Signs Vital Signs: Vital Signs - 24 hr 09/06/24 14:29 09/06/24 18:19 09/06/24 18:43 Temperature 97.8 F 98.1 F Pulse Rate 84 84 Respiratory Rate 12 16 Blood Pressure 97/60 L 90/49 L 110/72 Pulse Oximetry 99 99 Oxygen Delivery 09/06/24 20:16 09/06/24 20:14 09/06/24 23:58 Temperature 98.0 F 97.7 F Pulse Rate 82 91 73 Respiratory Rate 16 18 Blood Pressure 103/64 95/58 L Pulse Oximetry 100 91 Oxygen Delivery 09/06/24 20:00 09/07/24 04:00 09/07/24 08:28 Temperature 97.7 F Pulse Rate 105 H 90 Respiratory Rate 20 Blood Pressure 132/75 Pulse Oximetry 93 Oxygen Delivery Room Air 09/07/24 08:00 09/07/24 08:30 Temperature 98.6 F Pulse Rate 81 Respiratory Rate 18 Blood Pressure 170/88 H Pulse Oximetry 100 Oxygen Delivery Room Air Intake/Output Intake/Output: Intake & Output 09/04/24 09/05/24 09/06/24 09/07/24 23:59 23:59 23:59 23:59 Intake Total 153 683 9603 840 Output Total 1150 1100 2400 300 Balance -230 -260 -1340 540 Meds/Results Medications: Active Medications Generic Name Dose Route Start Last Admin Trade Name Freq PRN Reason Stop Dose Admin Acetaminophen 650 mg 08/31/24 18:49 09/07/24 05:09 Acetaminophen 325 Mg Tablet PO 650 mg Q4H PRN Administration Mild Pain (1-3) or Fever Hydrocodone Bitart/Acetaminophen 1 tab 08/31/24 18:49 Hydrocodone/Acetaminophen (*Crx) 5-325 Mg Tablet PO Q4H PRN Moderate Pain (4-6) Cephalexin HCl 500 mg 09/03/24 09:00 09/07/24 08:28 Cephalexin 500 Mg Capsule PO 09/07/24 21:01 500 mg Q12HR YONI Administration Diltiazem HCl 120 mg 08/31/24 19:00 09/07/24 08:28 Diltiazem Hcl Cd 120 Mg Cap.24hr PO 120 mg DAILY YONI Administration Docusate Sodium 100 mg 08/31/24 19:00 09/07/24 08:29 Docusate Sodium 100 Mg Capsule PO Not Given BID [facility] Enoxaparin Sodium 40 mg 09/01/24 09:00 09/07/24 08:29 Enoxaparin 40 Mg/0.4 Ml Syringe SUB-Q 40 mg DAILY YONI Administration Ferrous Sulfate 325 mg 09/03/24 09:00 09/07/24 08:29 Ferrous Sulfate [address] PO 325 mg BID YONI Administration Furosemide 40 mg 09/03/24 11:05 09/07/24 08:28 Furosemide 40 Mg Tablet PO 40 mg DAILY YONI Administration Metoprolol Tartrate 25 mg 08/31/24 21:00 09/07/24 08:28 Metoprolol Tartrate 25 Mg Tablet PO 25 mg Q12HR YONI Administration Midodrine 10 mg 08/31/24 19:05 09/07/24 08:28 Midodrine Hcl 10 Mg Tablet PO 10 mg TID YONI Administration Potassium Chloride 10 meq 09/05/24 08:00 09/07/24 08:29 Potassium Chloride 10 Meq Er Tablet PO 10 meq BIDWM YONI Administration Radiology Results: ITS Impressions Chest X-Ray 08/31/24 12:07 IMPRESSION: 1. Mild atelectasis in left midlung zone. 2. Cardiomegaly. Labs Labs: Laboratory Results - last 24 hr 09/07/24 07:54 WBC 4.4 L RBC 2.86 L Hgb 9.1 L Hct 29.0 L MCV 101.4 H MCH 31.8 MCHC 31.4 L RDW 18.1 H Plt Count 238 MPV 9.1 Immature Gran % (Auto) Not Reportable Neut % (Auto) Not Reportable Lymph % (Auto) Not Reportable [place] % (Auto) Not Reportable Eos % (Auto) Not Reportable Baso % (Auto) Not Reportable Lymph # (Auto) Not Reportable [place] # (Auto) Not Reportable Eos # (Auto) Not Reportable Baso # (Auto) Not Reportable Abs Immat Gran (auto) Not Reportable Absolute Neuts (auto) Not Reportable Absolute Nucleated RBC Not Reportable Total Counted 100 Neutrophils % (Manual) 52 Band Neutrophils % 0 Lymphocytes % (Manual) 38 Monocytes % (Manual) 4 Eosinophils % (Manual) 5 H Basophils % (Manual) 1 Nucleated RBC % Not Reportable Abs Neuts (Manual) 2.28 Abs Lymphs (Manual) 1.67 Abs Monocytes (Manual) 0.17 Absolute Eos (Manual) 0.22 Abs Basophils (Manual) 0.04 Atypical Lymphocytes Present Platelet Estimate Adequate Schistocytes None seen Sodium 139 Potassium 3.6 Chloride 102 Carbon Dioxide 32 H Anion Gap 5 BUN 15 Creatinine 0.80 Estim Creat Clear Calc 93 Estimated GFR > 60 Glucose 83 Calcium 8.2 L Quality VTE Prophylaxis VTE prophylaxis: mechanical ordered and pharmacologic ordered
[2024-09-08] VITALS (10 sets, daily range): BP systolic 90–118; BP diastolic 52–73; PULSE 74–98; RESP 16–20; TEMP 36.5–36.8; O2SAT 93–98
[2024-09-08 06:26] LABS: Anion Gap 3 mmol/L (4-12); Blood Urea Nitrogen 15 mg/dL (7-17); Calcium 8.5 mg/dL (8.4-10.2); Carbon Dioxide 33 mmol/L (22-30); Chloride 104 mmol/L (98-107); Estimated CRCL calculation 83 ml/min; Estimated Glomerular Filt Rate > 60; Glucose 89 mg/dL (65-110); Potassium 3.8 mmol/L (3.4-5.0); Sodium 140 mmol/L (137-145)
[2024-09-08] MEDS: POTASSIUM CHLORIDE 10 MEQ ER TABLET PO ×2 (08:16→16:47)
[2024-09-08] MEDS: METOPROLOL TARTRATE 25 MG TABLET PO ×2 (08:16→20:25)
[2024-09-08] MEDS: FUROSEMIDE 40 MG TABLET PO ×2 (08:16→13:19)
[2024-09-08] MEDS: MIDODRINE HCL 10 MG TABLET PO ×3 (08:16→16:47)
[2024-09-08] MEDS: FERROUS SULFATE 325 MG TABLET DR PO ×2 (08:17→16:47)
[2024-09-08] MEDS: dilTIAZem HCL CD 120 MG CAP.24HR PO (08:17)
[2024-09-08] MEDS: ENOXAPARIN 40 MG/0.4 ML SYRINGE SUB-Q (08:24)
--- NOTE | 2024-09-08 10:39 | P.PNIM_ITS ---
Progress Note: A&P Assessment and Plan (1) Paroxysmal atrial fibrillation: Code(s): I48.0 - Paroxysmal atrial fibrillation Status: Acute (2) Hypokalemia: Code(s): E87.6 - Hypokalemia Status: Acute (3) Atrial fibrillation with RVR: Code(s): I48.91 - Unspecified atrial fibrillation Status: Acute Plan 63-year-old female well known to this hospital with history of AFib and chronic ulcers on lower extremity lymphedema presents due to palpitations and nausea. Patient states that she recently discharged home from rehab, about 10 take its ago and felt better than she had a very long time. The last 3 days or so she states that she was getting weaker and tired and thought it was due to her anemia. This morning when standing she was dizzy had a headache and felt like she was going to fall so she came to the emergency room. Patient was found to be in AFib with RVR with a rate of 120. Patient states that while she was home she was compliant with her medication and diet. In the ED potassium was 3.1, lactic acid 2.4, proBNP 4320, UA positive for nitrates and trace leukocyte esterase started on Rocephin in ED. chest x-ray shows pulmonary edema cardiomegaly. EKG shows AFib with RVR rate of 122, Atrial fibrillation with rapid ventricular response: Code(s): I48.91 - Unspecified atrial fibrillation Status: Acute Assessment and Plan: Current rate below 130, patient may need a diltiazem drip if she sustains or exceeds 130 Cardiology consulted -no new changes- will need holter monitor Troponin negative Likely secondary to acute heart failure wkg: Compared to ECG 08/31/2024 11:19:50 NO SIGNIFICANT CHANGE -HR stable-80/90's -will f/u with card oupt holter monitor will be ordered upon discharge Acute heart failure Status: Acute Assessment and Plan: IV Lasix x1 given a ED Lynch for aggressive diuresis, DC once respiratory status improves Lasix 40 mg scheduled for the morning, adjust as needed monitor blood pressure closely echo July 20 showed Left ventricular systolic function is normal, estimated at 55-60%. moderate to severe tricuspid valve regurgitation. Severity ofregurgitation may be underestimated due to eccentricity of the jet. Pulmonary hypertension, estimated pulmonary arterial systolic pressures 50 mmHg. Possible resulting from mitral tricuspid valve regurgitation Consult it support manager for evaluation treatment- no new orders from cards. will need f/u as an outpt add k supplements continue to monitor I/O would be prudent to add jardiance but with her frequent UTI may not be a good idea at this time lasix 40 mg po x 1 09/08 stable- continue regimen monitor i/o UTI (urinary tract infection): Code(s): N39.0 - Urinary tract infection, site not specified Status: Acute Assessment and Plan: Sepsis lactic 2.4, BP 100 over 50s, AFib with RVR 120, UA 1+ ketones positive for nitrates positive leukocyte Estrace 4+ bacteria IV Rocephin No IV fluids due to overload Cultures and sensitivities pending Lynch was removed will switch to PO antibiotics -keflex as culture is back-kleb pneumoniae completed treatment Wounds, multiple: Code(s): T07.XXXA - Unspecified multiple injuries, initial encounter Status: Chronic Assessment and Plan: Bilateral lower extremity lymphedema with areas of weeping, no signs of infection Wound care consulted for management Hypokalemia: Code(s): E87.6 - Hypokalemia Status: Acute Assessment and Plan: 40 mEq x1 given in ED Replete as needed Daily BMP Time Spent With Patient Time with patient: Greater than 35 minutes Subjective Date/time seen: 09/08/24 10:39 Interval history: Waiting for auth.for placement. doing well this am, no acute events Review of Systems Review of Systems: weakness- slowly improving-working with pt/ot Constitutional: Constitutional: Denies body ache(s) Gastrointestinal: Gastrointestinal: Denies abdominal pain Musculoskeletal: Musculoskeletal: Denies back pain Exam Narrative: GENERAL: Pleasant, in no acute distress. Well-nourished. - EYES: EOMI. Anicteric. - HENT: Moist mucous membranes. - LUNGS: Coarse breath sound bilateral base - CARDIOVASCULAR: Regular rate and rhyth m. No murmur. No JVD. - ABDOMEN: Soft, non-tender and non-dist ended. No palpable masses. - EXTREMITIES: 2+ lower extremities priya ma. Peripheral pulses 2+. Non-tender. - NEUROLOGIC: No focal neurological defi cits. CN II-XII grossly intact. - PSYCHIATRIC: Awake, Alert and oriented x 3. Appropriate mood and affect. - SKIN:swelling, lower extremities, marylu ent has lymphedema, trace upper extremities- improved - LYMPH: No cervical lymphadenopathy. Const: General: comfortable Objective Data Vital Signs Vital Signs: Vital Signs - 24 hr 09/07/24 12:00 09/07/24 15:32 09/07/24 20:00 Temperature 96.9 F L 96.9 F L 97.9 F Pulse Rate 64 64 83 Respiratory Rate 18 18 20 Blood Pressure 138/52 L 135/48 L 112/77 Pulse Oximetry 98 98 99 Oxygen Delivery 09/07/24 21:23 09/07/24 21:45 09/07/24 23:24 Temperature 98.1 F Pulse Rate 80 86 Respiratory Rate 20 Blood Pressure 105/59 L Pulse Oximetry 100 Oxygen Delivery Room Air 09/08/24 04:00 09/08/24 07:45 09/08/24 08:10 Temperature 97.8 F 97.7 F Pulse Rate 83 82 Respiratory Rate 20 20 18 Blood Pressure 112/73 110/68 Pulse Oximetry 93 93 98 Oxygen Delivery Room Air 09/08/24 08:16 09/08/24 10:32 Temperature 98.1 F Pulse Rate 84 80 Respiratory Rate 16 Blood Pressure 102/64 Pulse Oximetry 96 Oxygen Delivery Intake/Output Intake/Output: Intake & Output 09/05/24 09/06/24 09/07/24 09/08/24 23:59 23:59 23:59 23:59 Intake Total 840 1060 2310 580 Output Total 1100 2400 302 Balance -260 -1340 2007 580 Meds/Results Medications: Active Medications Generic Name Dose Route Start Last Admin Trade Name Freq PRN Reason Stop Dose Admin Acetaminophen 650 mg 08/31/24 18:49 09/07/24 05:09 Acetaminophen 325 Mg Tablet PO 650 mg Q4H PRN Administration Mild Pain (1-3) or Fever Hydrocodone Bitart/Acetaminophen 1 tab 08/31/24 18:49 Hydrocodone/Acetaminophen (*Crx) 5-325 Mg Tablet PO Q4H PRN Moderate Pain (4-6) Diltiazem HCl 120 mg 08/31/24 19:00 09/08/24 08:17 Diltiazem Hcl Cd 120 Mg Cap.24hr PO 120 mg DAILY YONI Administration Docusate Sodium 100 mg 08/31/24 19:00 09/08/24 08:17 Docusate Sodium 100 Mg Capsule PO Not Given BID [facility] Enoxaparin Sodium 40 mg 09/01/24 09:00 09/08/24 08:24 Enoxaparin 40 Mg/0.4 Ml Syringe SUB-Q 40 mg DAILY [facility] Administration Ferrous Sulfate 325 mg 09/03/24 09:00 09/08/24 08:17 Ferrous Sulfate [address] PO 325 mg BID [facility] Administration Furosemide 40 mg 09/03/24 11:05 09/08/24 08:16 Furosemide 40 Mg Tablet PO 40 mg DAILY [facility] Administration Metoprolol Tartrate 25 mg 08/31/24 21:00 09/08/24 08:16 Metoprolol Tartrate 25 Mg Tablet PO 25 mg Q12HR [facility] Administration Midodrine 10 mg 08/31/24 19:05 09/08/24 08:16 Midodrine Hcl 10 Mg Tablet PO 10 mg TID [facility] Administration Potassium Chloride 10 meq 09/05/24 08:00 09/08/24 08:16 Potassium Chloride 10 Meq Er Tablet PO 10 meq BIDWM YONI Administration Radiology Results: ITS Impressions Chest X-Ray 08/31/24 12:07 IMPRESSION: 1. Mild atelectasis in left midlung zone. 2. Cardiomegaly. Labs Labs: Laboratory Results - last 24 hr 09/08/24 05:48 Sodium 140 Potassium 3.8 Chloride 104 Carbon Dioxide 33 H Anion Gap 3 L BUN 15 Creatinine 0.90 Estim Creat Clear Calc 83 Estimated GFR > 60 Glucose 89 Calcium 8.5 Quality VTE Prophylaxis VTE prophylaxis: mechanical ordered and pharmacologic ordered
--- NOTE | 2024-09-08 11:18 | PC.NURSE ---
On 09/08/24, the student, [Sarah Mejia], provided care and completed [facility] documentation on this patient. I have reviewed the student's documentation and agree with the findings.
[2024-09-09] VITALS (8 sets, daily range): BP systolic 95–113; BP diastolic 58–68; PULSE 73–113; RESP 14–18; TEMP 36.3–36.9; O2SAT 96–97
[2024-09-09 05:53] LABS: Anion Gap 5 mmol/L (4-12); Blood Urea Nitrogen 14 mg/dL (7-17); Calcium 8.2 mg/dL (8.4-10.2); Carbon Dioxide 32 mmol/L (22-30); Chloride 103 mmol/L (98-107); Estimated CRCL calculation 92 ml/min; Estimated Glomerular Filt Rate > 60; Glucose 83 mg/dL (65-110); Potassium 3.7 mmol/L (3.4-5.0); Sodium 140 mmol/L (137-145)
[2024-09-09] MEDS: ACETAMINOPHEN 325 MG TABLET 650 MG PO (08:11)
[2024-09-09] MEDS: DOCUSATE SODIUM 100 MG CAPSULE PO (08:13)
[2024-09-09] MEDS: METOPROLOL TARTRATE 25 MG TABLET PO ×2 (08:13→20:15)
[2024-09-09] MEDS: MIDODRINE HCL 10 MG TABLET PO ×3 (08:13→16:26)
[2024-09-09] MEDS: dilTIAZem HCL CD 120 MG CAP.24HR PO (08:13)
[2024-09-09] MEDS: FUROSEMIDE 40 MG TABLET PO (08:13)
[2024-09-09] MEDS: FERROUS SULFATE 325 MG TABLET DR PO ×2 (08:13→16:26)
[2024-09-09] MEDS: POTASSIUM CHLORIDE 10 MEQ ER TABLET PO ×2 (08:13→16:26)
[2024-09-09] MEDS: ENOXAPARIN 40 MG/0.4 ML SYRINGE SUB-Q (08:21)
--- NOTE | 2024-09-09 08:58 | PCNWS ---
Weekly nutritional screen. Patient is tolerating current diet with adequate intake. No weight loss reported. No nutritional needs at this time.
--- NOTE | 2024-09-09 14:24 | P.PNIM_ITS ---
Progress Note: A&P Assessment and Plan (1) Acute exacerbation of chronic heart failure: Code(s): I50.9 - Heart failure, unspecified Status: Acute Assessment and Plan: - Symptoms: Palpitations and weakness - Current medications: Cardizem 120 mg daily, Lasix 20 mg b.i.d., and metoprolol 25 mg b.i.d. - BNP: 4320 - EKG: Afib RVR - Chest XR: 1. Mild atelectasis in left midlung zone. 2. Cardiomegaly. - Echo 07/20/24: Left ventricular systolic function is normal, estimated at 55- 60%. Moderate to severe tricuspid valve regurgitation. Severity of regurgitation may be underestimated due to eccentricity of the jet. Pulmonary hypertension, estimated pulmonary arterial systolic pressures 50 mmHg. Possible resulting from mitral tricuspid valve regurgitation - IV Lasix x1 given a ED - Lynch for aggressive diuresis, discontinued. - Lasix 40 mg scheduled for the morning, adjust as needed monitor blood pressure closely - Monitor vital signs, I&Os, BUN/creatinine, daily weights, neuro status and patient is a fall risk - Monitor serum electrolytes, Keep serum Potassium>4 and serum Magnesium>2 and CBC - Consult certified phlebotomist for evaluation treatment- no new orders from cards. will need f/u as an outpt add k supplements continue to monitor I/O would be prudent to add jardiance but with her frequent UTI may not be a good idea at this time lasix 40 mg po x 1 (2) UTI (urinary tract infection): Code(s): N39.0 - Urinary tract infection, site not specified Status: Acute Assessment and Plan: - UA: cloudy appearance with 3+ protein, 1+ ketones, positive nitrates, 2+ bili, trace leukocytes, 6-10 red blood cell, and 4+ bacteria - UC obtained on 08/31: Klebsiella pneumonia - started on IV rocephin, transitioned to oral Keflex and completed course during admission (3) Atrial fibrillation with RVR: Code(s): I48.91 - Unspecified atrial fibrillation Status: Acute Assessment and Plan: Likely secondary to acute heart failure - Continue current home medication: Cardizem 120 mg daily and metoprolol 20 mg b.i.d. - Troponin negative Ekg: Compared to ECG 08/31/2024 11:19:50 NO SIGNIFICANT CHANGE -HR stable-80/90's - Cardiology consulted -no new changes- will need holter monitor and to follow up in outpatient setting (4) Hypokalemia: Code(s): E87.6 - Hypokalemia Status: Acute Assessment and Plan: K 3.1 on admission. - Started on K supplementation - K WNL, continue monitoring on am labs (5) Wounds, multiple: Code(s): T07.XXXA - Unspecified multiple injuries, initial encounter Status: Chronic Assessment and Plan: Bilateral lower extremity lymphedema with areas of weeping, no signs of infection Wound care consulted for management Time Spent With Patient Time with patient: 25 - 35 minutes Subjective Date/time seen: 09/09/24 14:24 Interval history: Patient is pleasant sitting up in her chair. She has no complaints at this time denying chest pain, shortness a breath, palpitations, nausea /vomiting, and abdominal pain. Patient is still awaiting authorization for placement. P reviously she was okay with going home however this morning she was no longer agreeable and is wanting to stay for insurance authorization. Patient continues to work with PT/ OT and is greatly improving. PT note patient was able to crouch 100 ft with standby assistance today. Patient grew upset during my assessment as she notes that she is in a continuous cycle of being in and out of the hospital. discussed with patient she may benefit from assisted living versus penitentiary for better care and access to her medical providers given her difficulties with mobility and making it to appointments. Review of Systems Review of Systems: All systems reviewed & are unremarkable except as noted in HPI and below Exam Narrative: AF HR 88 RR 16 SpO2 97 BP 107/62 General: Obese female in no acute respiratory distress who is nontoxic appearing, sitting up in her chair HEENT: Normocephalic. Atraumatic. Extraocular movement intact. Sclera clear and anicteric. No facial asymmetry. Chest: Lungs are clear but diminished to auscultation bilaterally. No wheezes or crackles. CV: Heart was regular rate and rhythm. S1-S2. No murmurs, gallops, or rubs. Abd: Abdomen was soft. Nontender. Nondistended. Positive bowel sounds. No organomegaly or masses. Ext: Chronic 2+ pitting edema. No clubbing, cyanosis. 2+ DP pulses bilaterally. Neuro: Patient is alert and oriented x4. Cranial nerves 2-12 are intact. Speech is clear. Objective Data Vital Signs Vital Signs: Vital Signs - 24 hr 09/08/24 16:00 09/08/24 20:25 09/08/24 20:59 Temperature 97.9 F 98.3 F Pulse Rate 89 74 98 Respiratory Rate 16 16 Blood Pressure 118/68 106/65 Pulse Oximetry 98 96 Oxygen Delivery 09/08/24 20:30 09/09/24 00:00 09/09/24 05:25 Temperature 98.4 F 98.0 F Pulse Rate 98 78 85 Respiratory Rate 16 16 18 Blood Pressure 106/62 100/58 L Pulse Oximetry 96 97 96 Oxygen Delivery Room Air 09/09/24 08:00 09/09/24 08:00 09/09/24 11:14 Temperature 97.3 F L 98.1 F Pulse Rate 88 73 Respiratory Rate 16 14 Blood Pressure 107/62 95/60 L Pulse Oximetry 97 97 Oxygen Delivery Room Air 09/09/24 11:34 Temperature Pulse Rate Respiratory Rate Blood Pressure 102/62 Pulse Oximetry Oxygen Delivery Intake/Output Intake/Output: Intake & Output 09/06/24 09/07/24 09/08/24 09/09/24 23:59 23:59 23:59 23:59 Intake Total 1060 2310 1450 870 Output Total 2400 302 1700 Balance -1340 2008 -250 870 Meds/Results Medications: Active Medications Generic Name Dose Route Start Last Admin Trade Name Freq PRN Reason Stop Dose Admin Acetaminophen 650 mg 08/31/24 18:49 09/09/24 08:11 Acetaminophen 325 Mg Tablet PO 650 mg Q4H PRN Administration Mild Pain (1-3) or Fever Diltiazem HCl 120 mg 08/31/24 19:00 09/09/24 08:13 Diltiazem Hcl Cd 120 Mg Cap.24hr PO 120 mg DAILY YONI Administration Docusate Sodium 100 mg 08/31/24 19:00 09/09/24 08:13 Docusate Sodium 100 Mg Capsule PO 100 mg BID YONI Administration Enoxaparin Sodium 40 mg 09/01/24 09:00 09/09/24 08:21 Enoxaparin 40 Mg/0.4 Ml Syringe SUB-Q 40 mg DAILY YONI Administration Ferrous Sulfate 325 mg 09/03/24 09:00 09/09/24 08:13 Ferrous Sulfate [address] PO 325 mg BID YONI Administration Furosemide 40 mg 09/03/24 11:05 09/09/24 08:13 Furosemide 40 Mg Tablet PO 40 mg DAILY YONI Administration Metoprolol Tartrate 25 mg 08/31/24 21:00 09/09/24 08:13 Metoprolol Tartrate 25 Mg Tablet PO 25 mg Q12HR YONI Administration Midodrine 10 mg 08/31/24 19:05 09/09/24 11:56 Midodrine Hcl 10 Mg Tablet PO 10 mg TID YONI Administration Potassium Chloride 10 meq 09/05/24 08:00 09/09/24 08:13 Potassium Chloride 10 Meq Er Tablet PO 10 meq BIDWM YONI Administration Radiology Results: ITS Impressions Chest X-Ray 08/31/24 12:07 IMPRESSION: 1. Mild atelectasis in left midlung zone. 2. Cardiomegaly. Labs Labs: Laboratory Results - last 24 hr 09/09/24 05:16 Sodium 140 Potassium 3.7 Chloride 103 Carbon Dioxide 32 H Anion Gap 5 BUN 14 Creatinine 0.80 Estim Creat Clear Calc 92 Estimated GFR > 60 Glucose 83 Calcium 8.2 L Quality VTE Prophylaxis VTE prophylaxis: pharmacologic ordered
[2024-09-10] VITALS (7 sets, daily range): BP systolic 106–122; BP diastolic 65–79; PULSE 55–96; RESP 16–18; TEMP 35.9–36.7; O2SAT 93–97
--- NOTE | 2024-09-10 06:25 | PC.NURSE ---
patient refused dressing change for her lower legs claiming that it hurts too much. Pain medication was offered before starting the procedure and education was provided about infection risk and slower healing rate without the dressing changes. Patient still refused the procedure.
[2024-09-10] MEDS: ENOXAPARIN 40 MG/0.4 ML SYRINGE SUB-Q (08:27)
[2024-09-10] MEDS: POTASSIUM CHLORIDE 10 MEQ ER TABLET PO ×2 (08:27→16:55)
[2024-09-10] MEDS: dilTIAZem HCL CD 120 MG CAP.24HR PO (08:27)
[2024-09-10] MEDS: METOPROLOL TARTRATE 25 MG TABLET PO ×2 (08:27→20:19)
[2024-09-10] MEDS: FERROUS SULFATE 325 MG TABLET DR PO ×2 (08:27→16:55)
[2024-09-10] MEDS: MIDODRINE HCL 10 MG TABLET PO ×3 (08:27→16:55)
[2024-09-10] MEDS: FUROSEMIDE 40 MG TABLET PO (08:27)
--- NOTE | 2024-09-10 08:42 | PM.IMPN ---
Progress Note: A&P Assessment and Plan (1) Acute exacerbation of chronic heart failure: Code(s): I50.9 - Heart failure, unspecified Status: Acute Assessment and Plan: - Symptoms: Palpitations and weakness - Current medications: Cardizem 120 mg daily, Lasix 20 mg b.i.d., and metoprolol 25 mg b.i.d. - BNP: 4320 - EKG: Afib RVR - Chest XR: 1. Mild atelectasis in left midlung zone. 2. Cardiomegaly. - Echo 07/20/24: Left ventricular systolic function is normal, estimated at 55-60%. Moderate to severe tricuspid valve regurgitation. Severity of regurgitation may be underestimated due to eccentricity of the jet. Pulmonary hypertension, estimated pulmonary arterial systolic pressures 50 mmHg. Possible resulting from mitral tricuspid valve regurgitation - IV Lasix x1 given a ED - [facility] for aggressive diuresis, discontinued. - Lasix 40 mg scheduled for the morning, adjust as needed monitor blood pressure closely - Monitor vital signs, I&Os, BUN/creatinine, daily weights, neuro status and patient is a fall risk - Monitor serum electrolytes, Keep serum Potassium>4 and serum Magnesium>2 and CBC - Consult barrel polisher inside for evaluation treatment- no new orders from cards. will need f/u as an outpt add k supplements continue to monitor I/O would be prudent to add jardiance but with her frequent UTI may not be a good idea at this time lasix 40 mg po x 1 (2) UTI (urinary tract infection): Code(s): N39.0 - Urinary tract infection, site not specified Status: Acute Assessment and Plan: - UA: cloudy appearance with 3+ protein, 1+ ketones, positive nitrates, 2+ bili, trace leukocytes, 6-10 red blood cell, and 4+ bacteria - UC obtained on 08/31: Klebsiella pneumonia - started on IV rocephin, transitioned to oral Keflex and completed course during admission (3) Atrial fibrillation with RVR: Code(s): I48.91 - Unspecified atrial fibrillation Status: Acute Assessment and Plan: Likely secondary to acute heart failure - Continue current home medication: Cardizem 120 mg daily and metoprolol 20 mg b.i.d. - Troponin negative Ekg: Compared to ECG 08/31/2024 11:19:50 NO SIGNIFICANT CHANGE -HR stable-80/90's - Cardiology consulted -no new changes- will need holter monitor and to follow up in outpatient setting (4) Hypokalemia: Code(s): E87.6 - Hypokalemia Status: Acute Assessment and Plan: K 3.1 on admission. - K 3.9 on a.m. labs - Started on K supplementation - K WNL, continue monitoring on am labs (5) Wounds, multiple: Code(s): T07.XXXA - Unspecified multiple injuries, initial encounter Status: Chronic Assessment and Plan: Bilateral lower extremity lymphedema with areas of weeping, no signs of infection Wound care consulted for management Time Spent With Patient Time with patient: 25 - 35 minutes Subjective Date/time seen: 09/10/24 08:42 Interval history: Patient is pleasant lying comfortably in her chair. She continues to endorse weakness and tightness in her lower extremities. She has no other complaints. She denies chest pain, shortness a breath, nausea/ vomiting, and abdominal pain. She continues to work with physical therapy and is doing well. Authorization is pending for SNF placement. Review of Systems Review of Systems: All systems reviewed & are unremarkable except as noted in HPI and below Exam Narrative: AF HR 58 RR 18 SpO2 94 BP 111/70 General: Obese female in no acute respiratory distress who is nontoxic appearing, sitting up in her chair HEENT: Normocephalic. Atraumatic. Extraocular movement intact. Sclera clear and anicteric. No facial asymmetry. Chest: Lungs are clear but diminished to auscultation bilaterally. No wheezes or crackles. CV: Heart was regular rate and rhythm. S1-S2. No murmurs, gallops, or rubs. Abd: Abdomen was soft. Nontender. Nondistended. Positive bowel sounds. No organomegaly or masses. Ext: Chronic 2+ pitting edema. No clubbing, cyanosis. 2+ DP pulses bilaterally. Neuro: Patient is alert and oriented x4. Cranial nerves 2-12 are intact. Speech is clear. Objective Data Vital Signs Vital Signs: Vital Signs - 24 hr 09/09/24 11:14 09/09/24 11:34 09/09/24 15:28 Temperature 98.1 F 97.6 F Pulse Rate 73 113 H Respiratory Rate 14 18 Blood Pressure 95/60 L 102/62 102/64 Pulse Oximetry 97 97 Oxygen Delivery 09/09/24 20:15 09/09/24 20:35 09/09/24 20:15 Temperature 97.6 F Pulse Rate 95 91 91 Respiratory Rate 18 18 Blood Pressure 113/68 Pulse Oximetry 96 96 Oxygen Delivery Room Air 09/10/24 00:00 Temperature 97.6 F Pulse Rate 91 Respiratory Rate 18 Blood Pressure 106/65 Pulse Oximetry 96 Oxygen Delivery Intake/Output Intake/Output: Intake & Output 09/07/24 09/08/24 09/09/24 09/10/24 23:59 23:59 23:59 23:59 Intake Total 2310 1450 1110 390 Output Total 302 1700 Balance 2007 1110 390 Meds/Results Medications: Active Medications Generic Name Dose Route Start Last Admin Trade Name Freq PRN Reason Stop Dose Admin Acetaminophen 650 mg 08/31/24 18:49 09/09/24 08:11 Acetaminophen 325 Mg Tablet PO 650 mg Q4H PRN Administration Mild Pain (1-3) or Fever Diltiazem HCl 120 mg 08/31/24 19:00 09/10/24 08:27 Diltiazem Hcl Cd 120 Mg Cap.24hr PO 120 mg DAILY YONI Administration Docusate Sodium 100 mg 08/31/24 19:00 09/10/24 08:32 Docusate Sodium 100 Mg Capsule PO Not Given BID YONI Enoxaparin Sodium 40 mg 09/01/24 09:00 09/10/24 08:27 Enoxaparin 40 Mg/0.4 Ml Syringe SUB-Q 40 mg DAILY YONI Administration Ferrous Sulfate 325 mg 09/03/24 09:00 09/10/24 08:27 Ferrous Sulfate [address] PO 325 mg BID YONI Administration Furosemide 40 mg 09/03/24 11:05 09/10/24 08:27 Furosemide 40 Mg Tablet PO 40 mg DAILY YONI Administration Metoprolol Tartrate 25 mg 08/31/24 21:00 09/10/24 08:27 Metoprolol Tartrate 25 Mg Tablet PO 25 mg Q12HR YONI Administration Midodrine 10 mg 08/31/24 19:05 09/10/24 08:27 Midodrine Hcl 10 Mg Tablet PO 10 mg TID YONI Administration Potassium Chloride 10 meq 09/05/24 08:00 09/10/24 08:27 Potassium Chloride 10 Meq Er Tablet PO 10 meq BIDWM YONI Administration Radiology Results: ITS Impressions Chest X-Ray 08/31/24 12:07 IMPRESSION: 1. Mild atelectasis in left midlung zone. 2. Cardiomegaly. Quality VTE Prophylaxis VTE prophylaxis: pharmacologic ordered
[2024-09-10 09:19] LABS: Hematocrit 30.9 % (37.0-47.0); Hemoglobin 9.6 g/dL (12.0-15.0); Mean Corpuscular HGB Conc 31.1 g/dl (32-36); Mean Corpuscular Hemoglobin 31.1 pg (26-34); Mean Platelet Volume 8.8 fl (7.4-10.4); Platelet Count Result 245 k/mm3 (150-375); Red Blood Count 3.09 M/mm3 (4.2-5.4); Red Cell Distribution Width 17.8 % (11.5-14.5); White Blood Count 4.6 K/mm3 (4.5-10.0)
[2024-09-10 09:41] LABS: Alanine Aminotransferase 10 U/L (6-35); Albumin Level 3.1 g/dL (3.5-5.1); Alkaline Phosphatase 98 U/L (38-126); Anion Gap 6 mmol/L (4-12); Aspartate Amino Transferase 28 U/L (14-36); Bilirubin,Total 1.2 mg/dL (0.2-1.3); Blood Urea Nitrogen 15 mg/dL (7-17); Calcium 8.7 mg/dL (8.4-10.2); Carbon Dioxide 31 mmol/L (22-30); Chloride 102 mmol/L (98-107); Estimated CRCL calculation 92 ml/min; Estimated Glomerular Filt Rate > 60; Glucose 85 mg/dL (65-110); Potassium 3.9 mmol/L (3.4-5.0); Sodium 139 mmol/L (137-145)
[2024-09-11] VITALS (8 sets, daily range): BP systolic 103–119; BP diastolic 59–73; PULSE 64–89; RESP 16–18; TEMP 36.2–37.1; O2SAT 92–98
--- NOTE | 2024-09-11 07:07 | P.PNIM_ITS ---
Progress Note: A&P Assessment and Plan (1) Acute exacerbation of chronic heart failure: Code(s): I50.9 - Heart failure, unspecified Status: Acute Assessment and Plan: - Symptoms: Palpitations and weakness - Current medications: Cardizem 120 mg daily, Lasix 20 mg b.i.d., and metoprolol 25 mg b.i.d. - BNP: 4320 - EKG: Afib RVR - Chest XR: 1. Mild atelectasis in left midlung zone. 2. Cardiomegaly. - Echo 07/20/24: Left ventricular systolic function is normal, estimated at 55- 60%. Moderate to severe tricuspid valve regurgitation. Severity of regurgitation may be underestimated due to eccentricity of the jet. Pulmonary hypertension, estimated pulmonary arterial systolic pressures 50 mmHg. Possible resulting from mitral tricuspid valve regurgitation - IV Lasix x1 given a ED - [facility] for aggressive diuresis, discontinued. - Lasix 40 mg scheduled for the morning, adjust as needed monitor blood pressure closely - Monitor vital signs, I&Os, BUN/creatinine, daily weights, neuro status and patient is a fall risk - Monitor serum electrolytes, Keep serum Potassium>4 and serum Magnesium>2 and CBC - Consult non destructive evaluation specialist for evaluation treatment- no new orders from cards. will need f/u as an outpt add k supplements continue to monitor I/O would be prudent to add jardiance but with her frequent UTI may not be a good idea at this time lasix 40 mg po x 1 09/11: Patient endorsing bilateral lower extremity tightness and swelling. Will give a 1 time dose 20 mg Lasix p.o. (2) UTI (urinary tract infection): Code(s): N39.0 - Urinary tract infection, site not specified Status: Acute Assessment and Plan: - UA: cloudy appearance with 3+ protein, 1+ ketones, positive nitrates, 2+ bili, trace leukocytes, 6-10 red blood cell, and 4+ bacteria - UC obtained on 08/31: Klebsiella pneumonia - started on IV rocephin, transitioned to oral Keflex and completed course during admission (3) Atrial fibrillation with RVR: Code(s): I48.91 - Unspecified atrial fibrillation Status: Acute Assessment and Plan: Likely secondary to acute heart failure - Continue current home medication: Cardizem 120 mg daily and metoprolol 20 mg b.i.d. - Troponin negative Ekg: Compared to ECG 08/31/2024 11:19:50 NO SIGNIFICANT CHANGE -HR stable-80/90's - Cardiology consulted -no new changes- will need holter monitor and to follow up in outpatient setting (4) Hypokalemia: Code(s): E87.6 - Hypokalemia Status: Acute Assessment and Plan: K 3.1 on admission. - K 3.9 on a.m. labs - Started on K supplementation - K WNL, continue monitoring on am labs (5) Wounds, multiple: Code(s): T07.XXXA - Unspecified multiple injuries, initial encounter Status: Chronic Assessment and Plan: Bilateral lower extremity lymphedema with areas of weeping, no signs of infection Wound care consulted for management Time Spent With Patient Time with patient: 25 - 35 minutes Subjective Date/time seen: 09/11/24 07:07 Interval history: Patient is pleasant sitting up comfortably in her chair. She endorses increased lower extremity tightness. Will give a one time dose of po lasix. She has no other complaints at this time denying chest pain, shortness of breath, nausea/vomiting and abdominal pain. She continues to work well with therapy. Authorization for placement is still pending. Review of Systems Review of Systems: All systems reviewed & are unremarkable except as noted in HPI and below Exam Narrative: AF HR 84 RR 16 SpO2 98 BP 111/73 General: Obese female in no acute respiratory distress who is nontoxic appearing, sitting up in her chair HEENT: Normocephalic. Atraumatic. Extraocular movement intact. Sclera clear and anicteric. No facial asymmetry. Chest: Lungs are clear but diminished to auscultation bilaterally. No wheezes or crackles. CV: Heart was regular rate and rhythm. S1-S2. No murmurs, gallops, or rubs. Abd: Abdomen was soft. Nontender. Nondistended. Positive bowel sounds. No organomegaly or masses. Ext: Chronic 2+ pitting edema. Legs are in leigha wraps. No clubbing, cyanosis. 2+ DP pulses bilaterally. Neuro: Patient is alert and oriented x4. Cranial nerves 2-12 are intact. Speech is clear. Objective Data Vital Signs Vital Signs: Vital Signs - 24 hr 09/10/24 08:00 09/10/24 08:00 09/10/24 12:00 Temperature 97.7 F 96.9 F L Pulse Rate 72 58 L Respiratory Rate 17 18 Blood Pressure 107/67 111/70 Pulse Oximetry 95 94 Oxygen Delivery Room Air 09/10/24 16:00 09/10/24 20:19 09/10/24 20:00 Temperature 96.7 F L 98.1 F Pulse Rate 96 80 55 L Respiratory Rate 18 16 Blood Pressure 114/69 122/79 Pulse Oximetry 96 93 Oxygen Delivery 09/11/24 00:00 09/10/24 20:20 09/11/24 06:50 Temperature 97.6 F 97.8 F Pulse Rate 74 74 65 Respiratory Rate 16 16 16 Blood Pressure 103/66 109/59 L Pulse Oximetry 97 97 98 Oxygen Delivery Room Air Intake/Output Intake/Output: Intake & Output 09/08/24 09/09/24 09/10/24 09/11/24 23:59 23:59 23:59 23:59 Intake Total 1450 1110 870 390 Output Total 1700 250 Balance -250 1110 620 390 Meds/Results Medications: Active Medications Generic Name Dose Route Start Last Admin Trade Name Freq PRN Reason Stop Dose Admin Acetaminophen 650 mg 08/31/24 18:49 09/09/24 08:11 Acetaminophen 325 Mg Tablet PO 650 mg Q4H PRN Administration Mild Pain (1-3) or Fever Diltiazem HCl 120 mg 08/31/24 19:00 09/10/24 08:27 Diltiazem Hcl Cd 120 Mg Cap.24hr PO 120 mg DAILY YONI Administration Docusate Sodium 100 mg 08/31/24 19:00 09/10/24 16:55 Docusate Sodium 100 Mg Capsule PO Not Given BID YONI Enoxaparin Sodium 40 mg 09/01/24 09:00 09/10/24 08:27 Enoxaparin 40 Mg/0.4 Ml Syringe SUB-Q 40 mg DAILY YONI Administration Ferrous Sulfate 325 mg 09/03/24 09:00 09/10/24 16:55 Ferrous Sulfate [address] PO 325 mg BID YONI Administration Furosemide 40 mg 09/03/24 11:05 09/10/24 08:27 Furosemide 40 Mg Tablet PO 40 mg DAILY YONI Administration Metoprolol Tartrate 25 mg 08/31/24 21:00 09/10/24 20:19 Metoprolol Tartrate 25 Mg Tablet PO 25 mg Q12HR YONI Administration Midodrine 10 mg 08/31/24 19:05 09/10/24 16:55 Midodrine Hcl 10 Mg Tablet PO 10 mg TID YONI Administration Potassium Chloride 10 meq 09/05/24 08:00 09/10/24 16:55 Potassium Chloride 10 Meq Er Tablet PO 10 meq BIDWM YONI Administration Radiology Results: ITS Impressions Chest X-Ray 08/31/24 12:07 IMPRESSION: 1. Mild atelectasis in left midlung zone. 2. Cardiomegaly. Labs Labs: Laboratory Results - last 24 hr 09/10/24 09:12 WBC 4.6 RBC 3.09 L Hgb 9.6 L Hct 30.9 L MCV 100.0 MCH 31.1 MCHC 31.1 L RDW 17.8 H Plt Count 245 MPV 8.8 Sodium 139 Potassium 3.9 Chloride 102 Carbon Dioxide 31 H Anion Gap 6 BUN 15 Creatinine 0.80 Estim Creat Clear Calc 92 Estimated GFR > 60 Glucose 85 Calcium 8.7 Total Bilirubin 1.2 AST 28 ALT 10 Alkaline Phosphatase 98 Total Protein 7.0 Albumin 3.1 L Quality VTE Prophylaxis VTE prophylaxis: pharmacologic ordered
[2024-09-11] MEDS: POTASSIUM CHLORIDE 10 MEQ ER TABLET PO ×2 (08:36→16:01)
[2024-09-11] MEDS: MIDODRINE HCL 10 MG TABLET PO ×3 (08:37→16:02)
[2024-09-11] MEDS: FERROUS SULFATE 325 MG TABLET DR PO ×2 (08:37→16:02)
[2024-09-11] MEDS: METOPROLOL TARTRATE 25 MG TABLET PO ×2 (08:37→20:26)
[2024-09-11] MEDS: FUROSEMIDE 40 MG TABLET PO (08:37)
[2024-09-11] MEDS: ENOXAPARIN 40 MG/0.4 ML SYRINGE SUB-Q (08:38)
[2024-09-11] MEDS: dilTIAZem HCL CD 120 MG CAP.24HR PO (08:38)
--- NOTE | 2024-09-11 13:42 | PCCCNOTE ---
1341-Called Agnes at [phone] and CLAIR asking for an update on the [facility] auth requesting a return call.-ernestine.
[2024-09-11] MEDS: FUROSEMIDE 20 MG TABLET PO (16:02)
[2024-09-12] VITALS (9 sets, daily range): BP systolic 97–113; BP diastolic 53–73; PULSE 68–87; RESP 16–18; TEMP 36.3–36.8; O2SAT 94–98
--- NOTE | 2024-09-12 07:21 | PM.IMPN ---
Progress Note: A&P Assessment and Plan (1) Acute exacerbation of chronic heart failure: Code(s): I50.9 - Heart failure, unspecified Status: Acute Assessment and Plan: - Symptoms: Palpitations and weakness - Current medications: Cardizem 120 mg daily, Lasix 20 mg b.i.d., and metoprolol 25 mg b.i.d. - BNP: 4320 - EKG: Afib RVR - Chest XR: 1. Mild atelectasis in left midlung zone. 2. Cardiomegaly. - Echo 07/20/24: Left ventricular systolic function is normal, estimated at 55-60%. Moderate to severe tricuspid valve regurgitation. Severity of regurgitation may be underestimated due to eccentricity of the jet. Pulmonary hypertension, estimated pulmonary arterial systolic pressures 50 mmHg. Possible resulting from mitral tricuspid valve regurgitation - IV Lasix x1 given a ED - [facility] for aggressive diuresis, discontinued. - Lasix 40 mg scheduled for the morning, adjust as needed monitor blood pressure closely - Monitor vital signs, I&Os, BUN/creatinine, daily weights, neuro status and patient is a fall risk - Monitor serum electrolytes, Keep serum Potassium>4 and serum Magnesium>2 and CBC - Consult marketing content coordinator for evaluation treatment- no new orders from cards. will need f/u as an outpt add k supplements continue to monitor I/O would be prudent to add jardiance but with her frequent UTI may not be a good idea at this time lasix 40 mg po x 1 09/11: Patient endorsing bilateral lower extremity tightness and swelling. Will give a 1 time dose 20 mg Lasix p.o. 09/12: Patient states that bilateral lower extremity tightness has much improved and has no complaints at this time. Remains on lasix 40 mg PO daily (2) UTI (urinary tract infection): Code(s): N39.0 - Urinary tract infection, site not specified Status: Acute Assessment and Plan: - UA: cloudy appearance with 3+ protein, 1+ ketones, positive nitrates, 2+ bili, trace leukocytes, 6-10 red blood cell, and 4+ bacteria - UC obtained on 08/31: Klebsiella pneumonia - started on IV rocephin, transitioned to oral Keflex and completed course during admission (3) Atrial fibrillation with RVR: Code(s): I48.91 - Unspecified atrial fibrillation Status: Acute Assessment and Plan: Likely secondary to acute heart failure - Continue current home medication: Cardizem 120 mg daily and metoprolol 20 mg b.i.d. - Troponin negative - Ekg: Compared to ECG 08/31/2024 11:19:50 NO SIGNIFICANT CHANGE -HR stable - Cardiology consulted -no new changes- will need holter monitor and to follow up in outpatient setting (4) Hypokalemia: Code(s): E87.6 - Hypokalemia Status: Acute Assessment and Plan: K 3.1 on admission. - Started on K supplementation - K WNL, continue monitoring on am labs (5) Wounds, multiple: Code(s): T07.XXXA - Unspecified multiple injuries, initial encounter Status: Chronic Assessment and Plan: Bilateral lower extremity lymphedema with areas of weeping, no signs of infection Wound care consulted for management Time Spent With Patient Time with patient: 25 - 35 minutes Subjective Date/time seen: 09/12/24 07:21 Interval history: Patient is pleasant sitting up comfortably in her chair. She states that her legs are feeling much better compared to yesterday and is no longer complaining of tightness. She continues to work well with therapy and notes that she is feeling stronger each day. She remains inpatient at this time pending authorization for SNF placement. She has no complaints denying chest pain, shortness a breath, palpitations nausea /vomiting, and abdominal pain. Review of Systems Review of Systems: All systems reviewed & are unremarkable except as noted in HPI and below Exam Narrative: AF HR 78 RR 18 SpO2 94 BP 107/60 General: Obese female in no acute respiratory distress who is nontoxic appearing, sitting up in her chair HEENT: Normocephalic. Atraumatic. Extraocular movement intact. Sclera clear and anicteric. No facial asymmetry. Chest: Lungs are clear to auscultation bilaterally. No wheezes or crackles. CV: Heart was regular rate and rhythm. S1-S2. No murmurs, gallops, or rubs. Abd: Abdomen was soft. Nontender. Nondistended. Positive bowel sounds. No organomegaly or masses. Ext: Chronic pitting edema. Legs are in leigha wraps. No clubbing, cyanosis. 2+ DP pulses bilaterally. Neuro: Patient is alert and oriented x4. Cranial nerves 2-12 are intact. Speech is clear. Objective Data Vital Signs Vital Signs: Vital Signs - 24 hr 09/11/24 08:00 09/11/24 08:37 09/11/24 08:00 Temperature 97.2 F L Pulse Rate 75 83 Respiratory Rate 16 Blood Pressure 111/73 Pulse Oximetry 97 92 Oxygen Delivery Room Air 09/11/24 12:00 09/11/24 16:00 09/11/24 20:26 Temperature 97.3 F L 97.2 F L Pulse Rate 84 89 64 Respiratory Rate 16 16 Blood Pressure 119/73 Pulse Oximetry 98 97 Oxygen Delivery 09/11/24 20:00 09/11/24 21:10 09/12/24 00:00 Temperature 98.7 F 98.2 F Pulse Rate 71 79 Respiratory Rate 18 16 Blood Pressure 105/60 98/53 L Pulse Oximetry 96 97 Oxygen Delivery Room Air 09/12/24 04:00 Temperature 97.8 F Pulse Rate 78 Respiratory Rate 18 Blood Pressure 97/61 L Pulse Oximetry 98 Oxygen Delivery Intake/Output Intake/Output: Intake & Output 09/09/24 09/10/24 09/11/24 09/12/24 23:59 23:59 23:59 23:59 Intake Total 6799 241 3796 200 Output Total 250 300 Balance 1110 620 810 200 Meds/Results Medications: Active Medications Generic Name Dose Route Start Last Admin Trade Name Freq PRN Reason Stop Dose Admin Acetaminophen 650 mg 08/31/24 18:49 09/09/24 08:11 Acetaminophen 325 Mg Tablet PO 650 mg Q4H PRN Administration Mild Pain (1-3) or Fever Benzocaine 1 lozenge 09/11/24 10:30 Benzocaine/Menthol (*Bkc) 18 Ea Lozenge PO PRN PRN Sore Throat Diltiazem HCl 120 mg 08/31/24 19:00 09/11/24 08:38 Diltiazem Hcl Cd 120 Mg Cap.24hr PO 120 mg DAILY YONI Administration Docusate Sodium 100 mg 08/31/24 19:00 09/11/24 16:02 Docusate Sodium 100 Mg Capsule PO Not Given BID YONI Enoxaparin Sodium 40 mg 09/01/24 09:00 09/11/24 08:38 Enoxaparin 40 Mg/0.4 Ml Syringe SUB-Q 40 mg DAILY YONI Administration Ferrous Sulfate 325 mg 09/03/24 09:00 09/11/24 16:02 Ferrous Sulfate [address] PO 325 mg BID YONI Administration Furosemide 40 mg 09/03/24 11:05 09/11/24 08:37 Furosemide 40 Mg Tablet PO 40 mg DAILY YONI Administration Metoprolol Tartrate 25 mg 08/31/24 21:00 09/11/24 20:26 Metoprolol Tartrate 25 Mg Tablet PO 25 mg Q12HR YONI Administration Midodrine 10 mg 08/31/24 19:05 09/11/24 16:02 Midodrine Hcl 10 Mg Tablet PO 10 mg TID YONI Administration Potassium Chloride 10 meq 09/05/24 08:00 09/11/24 16:01 Potassium Chloride 10 Meq Er Tablet PO 10 meq BIDWM YONI Administration Radiology Results: ITS Impressions Chest X-Ray 08/31/24 12:07 IMPRESSION: 1. Mild atelectasis in left midlung zone. 2. Cardiomegaly. Quality VTE Prophylaxis VTE prophylaxis: pharmacologic ordered
[2024-09-12] MEDS: METOPROLOL TARTRATE 25 MG TABLET PO ×2 (10:29→21:29)
[2024-09-12] MEDS: dilTIAZem HCL CD 120 MG CAP.24HR PO (10:29)
[2024-09-12] MEDS: FERROUS SULFATE 325 MG TABLET DR PO ×2 (10:29→17:53)
[2024-09-12] MEDS: MIDODRINE HCL 10 MG TABLET PO ×3 (10:29→17:53)
[2024-09-12] MEDS: FUROSEMIDE 40 MG TABLET PO (10:29)
[2024-09-12] MEDS: POTASSIUM CHLORIDE 10 MEQ ER TABLET PO ×2 (10:30→17:54)
[2024-09-12] MEDS: ENOXAPARIN 40 MG/0.4 ML SYRINGE SUB-Q (10:32)
[2024-09-13] VITALS (9 sets, daily range): BP systolic 94–121; BP diastolic 44–71; PULSE 64–96; RESP 16–20; TEMP 36–36.7; O2SAT 94–99
--- NOTE | 2024-09-13 08:00 | PM.IMPN ---
Progress Note: A&P Assessment and Plan (1) Acute exacerbation of chronic heart failure: Code(s): I50.9 - Heart failure, unspecified Status: Acute Assessment and Plan: - Symptoms: Palpitations and weakness - Current medications: Cardizem 120 mg daily, Lasix 20 mg b.i.d., and metoprolol 25 mg b.i.d. - BNP: 4320 - EKG: Afib RVR - Chest XR: 1. Mild atelectasis in left midlung zone. 2. Cardiomegaly. - Echo 07/20/24: Left ventricular systolic function is normal, estimated at 55-60%. Moderate to severe tricuspid valve regurgitation. Severity of regurgitation may be underestimated due to eccentricity of the jet. Pulmonary hypertension, estimated pulmonary arterial systolic pressures 50 mmHg. Possible resulting from mitral tricuspid valve regurgitation - IV Lasix x1 given a ED - [place] for aggressive diuresis, discontinued. - Lasix 40 mg scheduled for the morning, adjust as needed monitor blood pressure closely - Monitor vital signs, I&Os, BUN/creatinine, daily weights, neuro status and patient is a fall risk - Monitor serum electrolytes, Keep serum Potassium>4 and serum Magnesium>2 and CBC - Consult imaging specialist for evaluation treatment- no new orders from cards. will need f/u as an outpt add k supplements continue to monitor I/O would be prudent to add jardiance but with her frequent UTI may not be a good idea at this time lasix 40 mg po x 1 09/11: Patient endorsing bilateral lower extremity tightness and swelling. Will give a 1 time dose 20 mg Lasix p.o. 09/13: No change to current treatment plan. (2) UTI (urinary tract infection): Code(s): N39.0 - Urinary tract infection, site not specified Status: Acute Assessment and Plan: - UA: cloudy appearance with 3+ protein, 1+ ketones, positive nitrates, 2+ bili, trace leukocytes, 6-10 red blood cell, and 4+ bacteria - UC obtained on 08/31: Klebsiella pneumonia - started on IV rocephin, transitioned to oral Keflex and completed course during admission (3) Atrial fibrillation with RVR: Code(s): I48.91 - Unspecified atrial fibrillation Status: Acute Assessment and Plan: Likely secondary to acute heart failure - Continue current home medication: Cardizem 120 mg daily and metoprolol 20 mg b.i.d. - Troponin negative - Ekg: Compared to ECG 08/31/2024 11:19:50 NO SIGNIFICANT CHANGE - Cardiology consulted -no new changes- will need holter monitor and to follow up in outpatient setting Resolved. Heart rate remains stable. (4) Hypokalemia: Code(s): E87.6 - Hypokalemia Status: Acute Assessment and Plan: K 3.1 on admission. - K 3.9 on am labs - Started on K supplementation - K WNL, continue monitoring on am labs (5) Wounds, multiple: Code(s): T07.XXXA - Unspecified multiple injuries, initial encounter Status: Chronic Assessment and Plan: Bilateral lower extremity lymphedema with areas of weeping, no signs of infection Wound care consulted for management Time Spent With Patient Time with patient: 25 - 35 minutes Subjective Date/time seen: 09/13/24 08:00 Interval history: patient is pleasant sitting up comfortably in her chair. She has no complaints today denying chest pain, shortness a breath, nausea /vomiting, and abdominal pain. She remains inpatient at this time pending [facility] authorization. Review of Systems Review of Systems: All systems reviewed & are unremarkable except as noted in HPI and below Exam Narrative: AF HR 94 RR18 SpO2 94 BP 112/71 General: Obese female in no acute respiratory distress who is nontoxic appearing, sitting up in her chair HEENT: Normocephalic. Atraumatic. Extraocular movement intact. Sclera clear and anicteric. No facial asymmetry. Chest: Lungs are clear to auscultation bilaterally. No wheezes or crackles. CV: Heart was regular rate and rhythm. S1-S2. No murmurs, gallops, or rubs. Abd: Abdomen was soft. Nontender. Nondistended. Positive bowel sounds. No organomegaly or masses. Ext: Chronic pitting edema. Legs are in leigha wraps. No clubbing, cyanosis. 2+ DP pulses bilaterally. Neuro: Patient is alert and oriented x4. Cranial nerves 2-12 are intact. Speech is clear. Objective Data Vital Signs Vital Signs: Vital Signs - 24 hr 09/12/24 10:27 09/12/24 10:29 09/12/24 10:30 Temperature Pulse Rate 68 Respiratory Rate Blood Pressure 106/73 Pulse Oximetry Oxygen Delivery Room Air 09/12/24 12:00 09/12/24 16:00 09/12/24 20:00 Temperature 97.6 F 97.4 F L 98.3 F Pulse Rate 78 74 87 Respiratory Rate 18 18 18 Blood Pressure 107/60 107/60 113/68 Pulse Oximetry 94 96 96 Oxygen Delivery 09/12/24 21:29 09/12/24 21:29 09/13/24 00:00 Temperature 98.1 F Pulse Rate 83 76 Respiratory Rate 18 Blood Pressure 104/58 L Pulse Oximetry 95 Oxygen Delivery Room Air 09/13/24 04:00 Temperature 97.9 F Pulse Rate 83 Respiratory Rate 16 Blood Pressure 106/64 Pulse Oximetry 94 Oxygen Delivery Intake/Output Intake/Output: Intake & Output 09/10/24 09/11/24 09/12/24 09/13/24 23:59 23:59 23:59 23:59 Intake Total 870 1110 910 200 Output Total 250 300 350 Balance 620 810 560 200 Meds/Results Medications: Active Medications Generic Name Dose Route Start Last Admin Trade Name Freq PRN Reason Stop Dose Admin Acetaminophen 650 mg 08/31/24 18:49 09/09/24 08:11 Acetaminophen 325 Mg Tablet PO 650 mg Q4H PRN Administration Mild Pain (1-3) or Fever Benzocaine 1 lozenge 09/11/24 10:30 Benzocaine/Menthol (*Bkc) 18 Ea Lozenge PO PRN PRN Sore Throat Diltiazem HCl 120 mg 08/31/24 19:00 09/12/24 10:29 Diltiazem Hcl Cd 120 Mg Cap.24hr PO 120 mg DAILY YONI Administration Docusate Sodium 100 mg 08/31/24 19:00 09/12/24 17:52 Docusate Sodium 100 Mg Capsule PO Not Given BID YONI Enoxaparin Sodium 40 mg 09/01/24 09:00 09/12/24 10:32 Enoxaparin 40 Mg/0.4 Ml Syringe SUB-Q 40 mg DAILY YONI Administration Ferrous Sulfate 325 mg 09/03/24 09:00 09/12/24 17:53 Ferrous Sulfate [address] PO 325 mg BID YONI Administration Furosemide 40 mg 09/03/24 11:05 09/12/24 10:29 Furosemide 40 Mg Tablet PO 40 mg DAILY YONI Administration Metoprolol Tartrate 25 mg 08/31/24 21:00 09/12/24 21:29 Metoprolol Tartrate 25 Mg Tablet PO 25 mg Q12HR YONI Administration Midodrine 10 mg 08/31/24 19:05 09/12/24 17:53 Midodrine Hcl 10 Mg Tablet PO 10 mg TID YONI Administration Potassium Chloride 10 meq 09/05/24 08:00 09/12/24 17:54 Potassium Chloride 10 Meq Er Tablet PO 10 meq BIDWM YONI Administration Radiology Results: ITS Impressions Chest X-Ray 08/31/24 12:07 IMPRESSION: 1. Mild atelectasis in left midlung zone. 2. Cardiomegaly. Quality VTE Prophylaxis VTE prophylaxis: pharmacologic ordered
[2024-09-13 08:43] LABS: Hematocrit 30.1 % (37.0-47.0); Hemoglobin 9.4 g/dL (12.0-15.0); Mean Corpuscular HGB Conc 31.2 g/dl (32-36); Mean Corpuscular Hemoglobin 30.9 pg (26-34); Mean Platelet Volume 8.9 fl (7.4-10.4); Platelet Count Result 254 k/mm3 (150-375); Red Blood Count 3.04 M/mm3 (4.2-5.4); Red Cell Distribution Width 17.3 % (11.5-14.5); White Blood Count 4.2 K/mm3 (4.5-10.0)
[2024-09-13 08:55] LABS: Alanine Aminotransferase 9 U/L (6-35); Albumin Level 3.1 g/dL (3.5-5.1); Alkaline Phosphatase 109 U/L (38-126); Anion Gap 5 mmol/L (4-12); Aspartate Amino Transferase 28 U/L (14-36); Bilirubin,Total 1.4 mg/dL (0.2-1.3); Blood Urea Nitrogen 15 mg/dL (7-17); Calcium 8.6 mg/dL (8.4-10.2); Carbon Dioxide 31 mmol/L (22-30); Chloride 103 mmol/L (98-107); Estimated CRCL calculation 83 ml/min; Estimated Glomerular Filt Rate > 60; Glucose 81 mg/dL (65-110); Potassium 3.9 mmol/L (3.4-5.0); Sodium 139 mmol/L (137-145)
[2024-09-13] MEDS: METOPROLOL TARTRATE 25 MG TABLET PO ×2 (09:43→20:56)
[2024-09-13] MEDS: FERROUS SULFATE 325 MG TABLET DR PO ×2 (09:43→17:26)
[2024-09-13] MEDS: MIDODRINE HCL 10 MG TABLET PO ×3 (09:44→17:26)
[2024-09-13] MEDS: dilTIAZem HCL CD 120 MG CAP.24HR PO (09:44)
[2024-09-13] MEDS: FUROSEMIDE 40 MG TABLET PO (09:44)
[2024-09-13] MEDS: POTASSIUM CHLORIDE 10 MEQ ER TABLET PO ×2 (09:44→17:25)
[2024-09-13] MEDS: ENOXAPARIN 40 MG/0.4 ML SYRINGE SUB-Q (09:47)
[2024-09-14 04:00] VITALS: BP 122/72; PULSE 89; RESP 20; TEMP 36.3; O2SAT 95
[2024-09-14 05:58] LABS: Hematocrit 29.7 % (37.0-47.0); Hemoglobin 9.2 g/dL (12.0-15.0); Mean Corpuscular Hemoglobin 31.1 pg (26-34); Mean Corpuscular Volume 100.3 fl (80-100); Mean Platelet Volume 9.3 fl (7.4-10.4); Platelet Count Result 254 k/mm3 (150-375); Red Blood Count 2.96 M/mm3 (4.2-5.4); Red Cell Distribution Width 17.2 % (11.5-14.5); White Blood Count 4.5 K/mm3 (4.5-10.0)
[2024-09-14 06:18] LABS: Alanine Aminotransferase 10 U/L (6-35); Albumin Level 3.1 g/dL (3.5-5.1); Alkaline Phosphatase 103 U/L (38-126); Anion Gap 5 mmol/L (4-12); Aspartate Amino Transferase 36 U/L (14-36); Bilirubin,Total 1.5 mg/dL (0.2-1.3); Blood Urea Nitrogen 16 mg/dL (7-17); Calcium 8.7 mg/dL (8.4-10.2); Carbon Dioxide 31 mmol/L (22-30); Chloride 103 mmol/L (98-107); Estimated CRCL calculation 92 ml/min; Estimated Glomerular Filt Rate > 60; Glucose 80 mg/dL (65-110); Potassium 4.3 mmol/L (3.4-5.0); Sodium 139 mmol/L (137-145)
[2024-09-14 08:00] VITALS: BP 108/60; PULSE 83; RESP 18; TEMP 36.9; O2SAT 95
[2024-09-14 09:33] VITALS: PULSE 97
[2024-09-14] MEDS: POTASSIUM CHLORIDE 10 MEQ ER TABLET PO (09:33)
[2024-09-14] MEDS: FERROUS SULFATE 325 MG TABLET DR PO (09:33)
[2024-09-14] MEDS: METOPROLOL TARTRATE 25 MG TABLET PO (09:33)
[2024-09-14] MEDS: dilTIAZem HCL CD 120 MG CAP.24HR PO (09:33)
[2024-09-14] MEDS: DOCUSATE SODIUM 100 MG CAPSULE PO (09:33)
[2024-09-14] MEDS: MIDODRINE HCL 10 MG TABLET PO ×2 (09:33→12:36)
[2024-09-14] MEDS: FUROSEMIDE 40 MG TABLET PO (09:42)
[2024-09-14] MEDS: ENOXAPARIN 40 MG/0.4 ML SYRINGE SUB-Q (09:42)
[2024-09-14 09:43] VITALS: BP 119/44; PULSE 97; RESP 16; O2SAT 97
--- NOTE | 2024-09-14 10:22 | P.DS_ITS ---
DS: Admitting Diagnosis Discharge Date 09/14/2024 Admitting Diagnosis Acute exacerbation of CHF urinary tract infection AFib with RVR hypokalemia wounds, multiple DS: Discharge Diagnosis Discharge Diagnosis (1) Acute exacerbation of chronic heart failure: Code(s): I50.9 - Heart failure, unspecified Status: Acute (2) UTI (urinary tract infection): Code(s): N39.0 - Urinary tract infection, site not specified Status: Acute (3) Atrial fibrillation with RVR: Code(s): I48.91 - Unspecified atrial fibrillation Status: Acute (4) Hypokalemia: Code(s): E87.6 - Hypokalemia Status: Acute (5) Wounds, multiple: Code(s): T07.XXXA - Unspecified multiple injuries, initial encounter Status: Chronic DS: Summary Hospital Course Reason for hospitalization: Acute exacerbation of CHF urinary tract infection AFib with RVR hypokalemia wounds, multiple Hospital Course: 63-year-old female with morbid obesity, paroxysmal atrial fibrillation on anticoagulation, suspected obstructive sleep apnea, and cervical cancer in 2011 who presented to the emergency department via EMS from home with palpitations and nausea. On admission patient did not meet sepsis criteria.Patient was hypokalemic, received supplementation and this resolved. Urine sample concerning for infection. UC obtained on 08/31 grew Klebsiella pneumonia. Patient was started on IV rocephin, transitioned to oral Keflex and completed course during admission. BNP was elevated. Chest XR showed cardiomegaly and mild atelectasis. EKG showing afib RVR. Cardiology was consulted. Per cardiology there was no new recommendations. Patient is to wear a Holter monitor and to follow up in outpatient setting. Patient received lasix for heart failure exacerbation. During admission patients palpitations resolved and her heart rate returned to normal. She remained in patient for an extended period of time waiting on insurance authorization for SNF placement. However eventually insurance denied. therapy continue to work with patient during her admission. Her last session she was able to walk 174 ft using her crutches. At time of discharge patient had no complaints denying chest pain, shortness a breath, palpitations, nausea /vomiting, and abdominal pain. Patient discharged home in stable condition. during her admission she was evaluated by Physical therapy and Occupational therapy both of who recommended placement however patient's insurance denied. Had a long discussion with patient about the benefits of going home with home health however she refused. Patient is to follow-up with her primary care provider in 1 week. She is to wear a Holter monitor and follow-up with Cardiology as scheduled. Status at Discharge Functional status at discharge: uses cane/walker Time Spent with Patient Time attestation: Total time spent providing and/or coordinating discharge services: Time spent: Greater than 30 minutes Exam Narrative: AF HR 97 RR 16 SpO2 97 BP 119/44 General: Obese female in no acute respiratory distress who is nontoxic appearing, sitting up in her chair HEENT: Normocephalic. Atraumatic. Extraocular movement intact. Sclera clear and anicteric. No facial asymmetry. Chest: Lungs are clear to auscultation bilaterally. No wheezes or crackles. CV: Heart was regular rate and rhythm. S1-S2. No murmurs, gallops, or rubs. Abd: Abdomen was soft. Nontender. Nondistended. Positive bowel sounds. No organomegaly or masses. Ext: Chronic pitting edema. Legs are in leigha wraps. No clubbing, cyanosis. 2+ DP pulses bilaterally. Neuro: Patient is alert and oriented x4. Cranial nerves 2-12 are intact. Speech is clear. DS: Data Data Completed and Pending Completed studies during hospitalization: chest xr Labs on day of discharge: Labs from last 24 hours 09/14/24 09/14/24 05:38 05:37 WBC 4.5 RBC 2.96 L Hgb 9.2 L Hct 29.7 L MCV 100.3 H MCH 31.1 MCHC 31.0 L RDW 17.2 H Plt Count 254 MPV 9.3 Sodium 139 Potassium 4.3 Chloride 103 Carbon Dioxide 31 H Anion Gap 5 BUN 16 Creatinine 0.80 Estim Creat Clear Calc 92 Estimated GFR > 60 Glucose 80 Calcium 8.7 Total Bilirubin 1.5 H AST 36 ALT 10 Alkaline Phosphatase 103 Total Protein 7.0 Albumin 3.1 L Discharge Plan Discharge Attending physician on discharge: Edin Hudson Discharging Clinician: Margy Peters Anticipated Discharge Date/Time: 09/14/24 10:17 Patient Disposition: Home Health Service Activity: as tolerated Diet: as tolerated and heart healthy Discharge Instructions: Per Care Coordination: [facility] ([phone]) will call to set up initial visit. Discharge disposition: Patient was admitted to the hospital for palpitations likely secondary to afib due to heart failure exacerbation. Patient was evaluated by Cardiology and is to wear a Holter monitor at time of discharge She has been started on a potassium supplement due to low potassium levels, this has since resolved Continue all medications as prescribed Strict bleeding precautions since you are on Xarelto including shaving with an electric razor, holding pressure for greater than 20 minutes for injury, protection of had with any falls, etc. 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 as scheduled Patient was diagnosed with a urinary tract infection She completed her antibiotic course during her admission Eat well balanced meals and stay hydrated Keep active to remain strong Avoid use of diapers or pads Good ceferino Care every 2 hours Trend urine output Monitor blood pressures Take caution while standing, rising, or moving Change positions slowly taking a break between each position change If you standing feel dizzy sat back down and take a break Encouraged to continue with yearly vaccinations Return to the emergency department if he developed sudden shortness of breath, chest pain, nausea, vomiting, upset stomach or intractable diarrhea Return to the emergency department if you develop fever greater than 101.5 Follow-up with the primary care physician within 1 week Thank you for choosing [facility] for your healthcare needs Patient Instructions: Antibiotic Form, Potassium Supplement (By mouth), Rivaroxaban (By mouth), Heart Failure (DC), Hypokalemia (DC), Pain Management (DC), Urinary Tract Infection in Older Adults (DC) Patient Language: Tunisian Stand Alone Forms: General Discharge Information Follow-up/Referrals: Shaista Simmons APN-C [Advanced Practice Nurse] - Call for Appointment Yuri Lugo MD [Primary Care Provider] - 1 Week Discharge Medications: New furosemide 40 mg Tablet 40 mg PO DAILY Qty: 30 0RF potassium chloride 10 mEq capsule, extended release 10 meq PO BID Qty: 60 0RF ferrous sulfate 325 mg (65 mg iron) tablet,delayed release (DR/EC) 325 mg PO BID Qty: 14 0RF Continued Adults Multivitamin 18 mg iron-400 mcg-25 mcg Tablet 1 tablet PO DAILY metoprolol tartrate 25 mg Tablet 25 mg PO Q12HR Qty: 60 0RF diltiazem HCl [Cardizem CD] 120 mg capsule,extended release 24hr 120 mg PO DAILY Qty: 60 0RF cyanocobalamin (vitamin B-12) [Vitamin B-12] 1,000 mcg Tablet 1,000 mcg PO QAM Qty: 30 2RF midodrine 10 mg Tablet 10 mg PO TID Qty: 90 1RF Xarelto 20 mg Tablet 10 mg PO DAILY@1700 Qty: 30 0RF ferrous sulfate 325 mg (65 mg iron) tablet,delayed release (/EC) 65 mg PO BID Discontinued furosemide 20 mg Tablet 20 mg PO BID Qty: 60 0RF Patient Comments: pt requests to HOLD medication r/t immobility Other Ambulatory Orders: [place] cardiac event monitor (Routine) Timeframe: 1 Month Location[place] [facility] [place] Ordered By: Shaista Simmons Date of admission: 09/01/24 16:33 Primary Care Provider: Yuri Lugo Admitting Provider: Daniel Valdivia Attending physician on admission: Margy Peters Condition: Stable Hospitalist MIPS Heart Failure (Exclusion) Patient has history of Heart Transplant or Left Ventricular Assistive Device?: No IF YES, STOP HERE Heart Failure (Qualifier) Patient has current or prior documentation of LVEF less than or equal to 40%, or mod/servere depressed LVSF?: No IF NO, STOP HERE
[2024-09-14 12:00] VITALS: BP 115/67; PULSE 67; RESP 18; TEMP 36.2; O2SAT 93
[2024-09-14 15:13] VITALS: BP 110/65; PULSE 93; RESP 19; TEMP 36.2; O2SAT 92
== END 2024-09-14 15:25 | disposition home health service (06) | DRG 292 ==
LOC: ANHED 12:13 → ANHIMU 17:49 → ANH2MED 09-01 16:17
PROVIDERS: Hospitalist; Nurse Practitioner; Student in an Organized Health Care Education/Training Program; Admitting Provider Internal Medicine; Emergency Provider Emergency Medicine; PCP Family Medicine; Visit Provider Student in an Organized Health Care Education/Training Program
DX: I50.33 Acute on chronic diastolic (congestive) heart failure (principal); L97.219 Non-pressure chronic ulcer of right calf with unspecified severity; N39.0 Urinary tract infection, site not specified; Z68.44 Body mass index [BMI] 60.0-69.9, adult; L97.229 Non-pressure chronic ulcer of left calf with unspecified severity; I48.0 Paroxysmal atrial fibrillation; I89.0 Lymphedema, not elsewhere classified; I36.1 Nonrheumatic tricuspid (valve) insufficiency; I34.0 Nonrheumatic mitral (valve) insufficiency; D50.9 Iron deficiency anemia, unspecified; E87.6 Hypokalemia; B96.1 Klebsiella pneumoniae [K. pneumoniae] as the cause of diseases classified elsewhere; E66.01 Morbid (severe) obesity due to excess calories; Z85.41 Personal history of malignant neoplasm of cervix uteri; Z79.01 Long term (current) use of anticoagulants
CPT/HCPCS: 36415; 71046; 80048; 80053; 81001; 83605; 83690; 83735; 83880; 84484; 85025; 85027; 85610; 85730; 87086; 87186; 93005; 96365; 96372; 96375; 96376; 97110; 97116; 97161; 97165; 97530; 97535; 99285; A9270; G0378; J0696; J1650; J1940

== ENCOUNTER 2024-09-30 14:11 | Outpatient (CLI) | payer MEDICARE, SELFPAY ==
[2024-09-30 14:56] LABS: Basophils Absolute Auto 0.1 K/mm3 (0.0-0.1); Basophils Percent Auto 0.8 % (0.2-1.2); Eosinophils Absolute Auto 0.3 K/mm3 (0-0.3); Eosinophils Percent Auto 4.1 % (0-4.4); Hematocrit 31.5 % (37.0-47.0); Hemoglobin 10.1 g/dL (12.0-15.0); Immature Granulocyte Absolute 0.03 K/mm3 (0.00-0.031); Immature Granulocyte Percent A 0.5 % (0-0.5); Lymphocytes Percent Auto 14.1 % (18.3-44.2); Mean Corpuscular HGB Conc 32.1 g/dl (32-36); Mean Corpuscular Hemoglobin 31.7 pg (26-34); Mean Corpuscular Volume 98.7 fl (80-100); Mean Platelet Volume 9.1 fl (7.4-10.4); Monocytes Absolute Auto 0.7 K/mm3 (0.1-0.6); Monocytes Percent Auto 10.5 % (2.6-8.5); Neutrophils Absolute Auto 4.5 K/mm3 (1.3-6.7); Platelet Count Result 364 k/mm3 (150-375); Red Blood Count 3.19 M/mm3 (4.2-5.4); Red Cell Distribution Width 15.7 % (11.5-14.5); White Blood Count 6.4 K/mm3 (4.5-10.0)
[2024-09-30 15:24] LABS: Anion Gap 8 mmol/L (4-12); Blood Urea Nitrogen 24 mg/dL (7-17); Calcium 9.5 mg/dL (8.4-10.2); Carbon Dioxide 26 mmol/L (22-30); Chloride 105 mmol/L (98-107); Estimated Glomerular Filt Rate > 60; Glucose 101 mg/dL (65-110); Potassium 3.6 mmol/L (3.4-5.0); Sodium 139 mmol/L (137-145)
== END 2024-09-30 14:12 | disposition home or self-care (01) ==
PROVIDERS: PCP Family Medicine; Visit Provider Nurse Practitioner
DX: D50.8 Other iron deficiency anemias (principal); I48.0 Paroxysmal atrial fibrillation
CPT/HCPCS: 36415; 80048; 85025

== ENCOUNTER 2024-10-05 14:28 | Inpatient (IN) | payer MEDICARE, SELFPAY ==
[2024-10-05] VITALS (9 sets, daily range): BP systolic 92–111; BP diastolic 56–94; PULSE 105–164; RESP 22–28; TEMP 37.1–38.3; O2SAT 96–100; BMI 57.4
--- NOTE | ~2024-10-05 | XR_ITS ---
EXAMINATION: XR chest 1V portable Exam Date/Time: 10/05/2024 15:30 DIGITAL PRINT OPERATOR HISTORY: Afib rvr Comparison: 08/31/2024. RESULT: Lines, tubes, and devices: None. Lungs and pleura: Clear. Cardiomediastinal silhouette: Stable. Other: No acute osseous or upper abdominal finding. IMPRESSION: No acute cardiopulmonary process. Reviewed, dictated and finalized at location K. TAL PRINT OPERATOR
--- NOTE | 2024-10-05 14:45 | ECG_ITS ---
Test Date: 2024-10-05 14:55:31 Measurements Intervals [place] Rate: 148 P: 0 FL: 0 QRS: 55 QRSD: 86 T: 14 QT: 301 QTc: 473 Interpretive Statements ATRIAL FIBRILLATION WITH RAPID VENTRICULAR RESPONSE LOW QRS VOLTAGE IN PRECORDIAL LEADS [QRS DEFLECTION < 1.0 mV IN CHEST LEADS] ABNORMAL RHYTHM ECG Compared to ECG 08/31/2024 19:56:01 Low QRS voltage now present Electronically Signed On 10-05-2024 15:18:54 [employer] by Thomas Tovar M.D.
[2024-10-05] MEDS: dilTIAZem HCl INJ 25 MG/5 ML VIAL 30 MG IV PUSH (15:09)
--- NOTE | 2024-10-05 15:10 | ED_ITS ---
HPI - Arrhythmia/Palpitations General Chief Complaint: Arrhythmia/Palpitations Stated Complaint: sod, nausea, afib rvr Time Seen by Provider: 10/05/24 14:35 History of Present Illness HPI narrative: 63-year-old female with a past medical history including congestive heart failure, atrial fibrillation on Xarelto, chronic wounds of bilateral lower extremities. Today she presents to the emergency department in atrial fibrillation with rapid ventricular response. She woke up today feeling unwell with subjective fever and diffuse chills. She does that her legs have been having increased weepage and drainage as well as purulence on the wound dressings when she changed yesterday. She noted that she felt lightheaded but denies any chest pain shortness a breath. No nausea, vomiting, headache, vision changes, abdominal pain, back pain. She has been taking all her medications. Only recent changes to her regimen were dose adjustments to her reverse Xarelto secondary to anemia but presently she has not had any changes to her rate controlling medications including diltiazem and and metoprolol. Related Data Home Medications Medication Instructions Recorded Confirmed multivit with minerals-iron 18 1 tablet PO DAILY 02/09/24 08/31/24 mg-folic ac 400 mcg-vit K 25 mcg tablet (Adults Multivitamin) ferrous sulfate 325 mg (65 mg 65 mg PO BID 07/27/24 08/31/24 iron) tablet,delayed release Allergies Allergy/AdvReac Type Severity Reaction Status Date / Time codeine Allergy Unknown Other Verified 08/31/24 19:28 diazepam Allergy Unknown Other Verified 08/31/24 19:28 Review of Systems Review of Systems: As reviewed above in HPI [facility] Past Medical History Medical History Cervical cancer (2011) Chronic anticoagulation Iron deficiency anemia 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 Moderate tricuspid valve regurgitation Morbid obesity with BMI of 60.0-69.9, adult Paroxysmal atrial fibrillation Severe mitral valve regurgitation Surgical History Surgical History History of foot surgery Bilateral foot surgery when she was young History of total abdominal hysterectomy and bilateral salpingo-oophorectomy (2011) Family History Family History Mother CKD (chronic kidney disease), Onset Age: 18 Glomerular nephritis Father Lung cancer Sibling Non-Hodgkin lymphoma Recurrent kidney stones Social History Social History Social History: Surrogate medical decision maker: Kishan Forrester, brother. Code status: Full Code. Smoking status: Never smoker Second hand tobacco smoke exposure: No Alcohol intake: never Substance use: never Substance use type: does not use Do You Feel Safe in your Home?: Yes Lack of Transportation: No Lack of Food: Never True Current Housing: I Have Housing Concerned About Future Housing: No Difficulty Paying Gas/Electric Bills: No Difficulty Paying for Meds: No Currently Unemployed: No Education: Master's Degree or Higher Difficulty w/ Childcare or Family Care: No Additional living arrangements comments: Lives in her own home in [place] with her boxer named Dana. No children. 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. 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: No Exam Narrative: GENERAL: morbidly obese, not in any acute physical or respiratory distress, tachycardic on the monitor, answering all questions appropriately. HEAD: [Normocephalic, atraumatic.] EYES: [PERRLA and EOMI.] ENT: Nares clear, no rhinorrhea or epistaxis. Mucous membranes moist. NECK: Supple. CHEST: Mostly clear to auscultation, difficult to fully auscultate secondary to body habitus but no accessory muscle use. No obvious wheezing or rhonchi HEART: [Regular rate and rhythm]. No murmur heard. [Normal peripheral pulses.] ABDOMEN: [Soft, nondistended], [nontender], [No rigidity or guarding] EXTREMITIES: bilateral lower extremities with significant wound drainage with purulence draining from the medial posterior aspect bilateral calves. Overlying cellulitic skin changes with macerated tissue from the knees down to the ankles. Dorsalis pedis palpable, EHL and FHL with full range of motion and strength symmetrically. SKIN: wounds as described above, overall macerated and infected tissue of the legs and warm and dry bilateral upper extremities NEURO: [No focal deficits]. Alert and oriented [x3.] PSYCH: [Normal mood and affect.] Course Vital Signs Vital signs: Vital Signs Temperature 37.2 C 10/05/24 14:32 Pulse Rate 164 H 10/05/24 14:32 Respiratory Rate 27 H 10/05/24 14:32 Blood Pressure 108/73 10/05/24 14:32 Pulse Oximetry 100 10/05/24 14:32 Oxygen Delivery Room Air 10/05/24 14:32 Temperature 38.3 C H 10/05/24 21:37 Pulse Rate 108 H 10/05/24 21:37 Respiratory Rate 22 H 10/05/24 21:37 Blood Pressure 107/72 10/05/24 21:37 Pulse Oximetry 96 10/05/24 21:37 Oxygen Delivery Room Air 10/05/24 14:32 MDM - Arrhythmia/Palpitations MDM Narrative Medical decision making narrative: 63-year-old female with a past medical history of atrial fibrillation on Xarelto, says 3 congestive heart failure, chronic wounds of her bilateral lower extremities. Presents to the emergency room today in atrial fibrillation with rapid ventricular response. She also has obviously infected cellulitic skin wounds bilateral lower extremities with weepage and purulent drainage from the macerated tissue. Patient states that she changed her dressings herself and changed them yesterday and they have already soak through with purulence. she endorses diffuse chills and subjective fever at home. On triage vital she is noted to have tachycardic pulse with regular rhythm between [id number] beats per minute. She is slightly tachypneic at 27 but not any respiratory distress and she is conversing in full sentences. No hypoxia, fever. Her blood pressure is on the low side but in line with her usual levels of blood pressure during each of her visits. At this time considerations are for sepsis causing her RVR given the wounds that are clinically infected. , electrolyte derangements, fluid depletion or overload are also possible but she clinically appears euvolemic with clear breath sounds. Not any shortness of breath or chest discomfort this time, ACS or other intrathoracic process such as a pneumonia or less likely. Septic bone was ordered at this time but will restrict her to only 1 L of lactated Ringer's given that she does have history of CHF and will re-evaluate to see if she needs any more fluids. Blood cultures were obtained, CBC, CMP, lactic acid, chest x-ray, EKG obtained. EKG confirms atrial fibrillation with RVR without any ectopy or ST segment elevations depressions. She was provided 30 mg of intravenous diltiazem as initial bolus dose for rate control followed by initiation of a diltiazem infusion. Patient was having an adequate response and was now rate controlled after re-evaluation, blood pressur e remained steady at 97/66. Heart rate now in the low 100s. Still AFib on the monitor. Patient states she felt better from a dizziness perspective but still having subjective chills. She was empirically started on vancomycin and cefepime for her wounds while awaiting rest of her workup at this time. workup revealed a leukocytosis of 19.0, hemoglobin of 9.3 but stable compared to her previous levels. Platelets within normal limits. Electrolyte panel shows a mild increase in creatinine 1.10, indicative of Potential slight CARIDAD. Electrolytes all within normal limits. Normal glucose, lactic acid 2.0 and normal. Troponin mildly elevated 0.035, CRP elevated greater than 9, LFT shows slight elevated bilirubin at 2.9 but otherwise normal. Chest x-ray shows no acute cardiopulmonary process. Patient was frequently re-evaluated and had improvement in her blood pressure and heart rate. She had to be up titrated on her diltiazem infusion but maintained a good goal at around 100-110 beats per minute. Blood pressure improved to the 100 to 120 range systolic. she is currently being treated with vancomycin cefepime and at this time is stable for admission to the hospital. I discussed the case with the mid-level provider Catherine ferrer hospitalist team. We went over patient's imaging studies, laboratory assessment, clinical exam and my concern for sepsis induced atrial fibrillation with rapid ventricular response secondary to her infected leg wounds. patient was accepted the hospital to the intermediate care unit for admission and continued treatment. Patient was made aware the admission and admit orders were successfully placed. Patient currently boarded here in the emergency department awaiting bed assignment. Medical Records Attestation: I reviewed the patient's medical records. Lab Data Attestation: I reviewed the patient's lab results. 10/05/24 16:07 10/05/24 16:07 Labs: Lab Results 10/05/24 10/05/24 10/05/24 Range/Units 16:07 16:07 16:07 WBC 19.0 H (4.5-10.0) K/mm3 RBC 2.97 L (4.2-5.4) M/mm3 Hgb 9.3 L (12.0-15.0) g/dL Hct 28.6 L (37.0-47.0) % MCV 96.3 (80-100) fl MCH 31.3 (26-34) pg MCHC 32.5 (32-36) g/dl RDW 15.5 H (11.5-14.5) % Plt Count 292 (150-375) k/mm3 MPV 9.3 (7.4-10.4) fl Immature Gran % (Auto) 0.6 H (0-0.5) % Neut % (Auto) 92.5 H (45.5-73.1) % Lymph % (Auto) 3.0 L (18.3-44.2) % [place] % (Auto) 3.5 (2.6-8.5) % Eos % (Auto) 0.1 (0-4.4) % Baso % (Auto) 0.3 (0.2-1.2) % Lymph # (Auto) 0.57 L (0.9-3.2) K/mm3 [place] # (Auto) 0.7 H (0.1-0.6) K/mm3 Eos # (Auto) 0.0 (0-0.3) K/mm3 Baso # (Auto) 0.1 (0.0-0.1) K/mm3 Abs Immat Gran (auto) 0.12 H (0.00-0.031) K/mm3 Absolute Neuts (auto) 17.5 H (1.3-6.7) K/mm3 Absolute Nucleated RBC 0.000 (0.0-0.012) K/mm3 Nucleated RBC % 0.0 (0.0-0.2) % Platelet Estimate Adequate (Adequate) Polychromasia 1+ Anisocytosis 1+ Schistocytes None seen PT 18.8 H (11.1-14.7) Seconds INR 1.5 APTT 31.8 (22.3-36.8) Seconds Sodium Cancelled 136 L Potassium Cancelled 4.4 Chloride Cancelled Carbon Dioxide Anion Gap BUN Creatinine Estim Creat Clear Calc Estimated GFR Glucose Lactic Acid (0.7-2.0) mmol/L Calcium Total Bilirubin AST ALT Alkaline Phosphatase Troponin I (0.000-0.034) ng/mL C-Reactive Protein Total Protein Albumin 10/05/24 10/05/2410/05/24 Range/Units 16:07 16:07 16:07 WBC (4.5-10.0) K/mm3 RBC (4.2-5.4) M/mm3 Hgb (12.0-15.0) g/dL Hct (37.0-47.0) % MCV (80-100) fl MCH (26-34) pg MCHC (32-36) g/dl RDW (11.5-14.5) % Plt Count (150-375) k/mm3 MPV (7.4-10.4) fl Immature Gran % (Auto) (0-0.5) % Neut % (Auto) (45.5-73.1) % Lymph % (Auto) (18.3-44.2) % [place] % (Auto) (2.6-8.5) % Eos % (Auto) (0-4.4) % Baso % (Auto) (0.2-1.2) % Lymph # (Auto) (0.9-3.2) K/mm3 [place] # (Auto) (0.1-0.6) K/mm3 Eos # (Auto) (0-0.3) K/mm3 Baso # (Auto) (0.0-0.1) K/mm3 Abs Immat Gran (auto) (0.00-0.031) K/mm3 Absolute Neuts (auto) (1.3-6.7) K/mm3 Absolute Nucleated RBC (0.0-0.012) K/mm3 Nucleated RBC % (0.0-0.2) % Platelet Estimate (Adequate) Polychromasia Anisocytosis Schistocytes PT (11.1-14.7) Seconds INR APTT (22.3-36.8) Seconds Sodium Potassium Chloride 104 Carbon Dioxide Cancelled 23 Anion Gap Cancelled 9 BUN Cancelled Creatinine Estim Creat Clear Calc Estimated GFR Glucose Lactic Acid (0.7-2.0) mmol/L Calcium Total Bilirubin AST ALT Alkaline Phosphatase Troponin I (0.000-0.034) ng/mL C-Reactive Protein Total Protein Albumin 10/05/24 10/05/24 10/05/24 Range/Units 16:07 16:07 16:07 WBC (4.5-10.0) K/mm3 RBC (4.2-5.4) M/mm3 Hgb (12.0-15.0) g/dL Hct (37.0-47.0) % MCV (80-100) fl MCH (26-34) pg MCHC (32-36) g/dl RDW (11.5-14.5) % Plt Count (150-375) k/mm3 MPV (7.4-10.4) fl Immature Gran % (Auto) (0-0.5) % Neut % (Auto) (45.5-73.1) % Lymph % (Auto) (18.3-44.2) % [place] % (Auto) (2.6-8.5) % Eos % (Auto) (0-4.4) % Baso % (Auto) (0.2-1.2) % Lymph # (Auto) (0.9-3.2) K/mm3 [place] # (Auto) (0.1-0.6) K/mm3 Eos # (Auto) (0-0.3) K/mm3 Baso # (Auto) (0.0-0.1) K/mm3 Abs Immat Gran (auto) (0.00-0.031) K/mm3 Absolute Neuts (auto) (1.3-6.7) K/mm3 Absolute Nucleated RBC (0.0-0.012) K/mm3 Nucleated RBC % (0.0-0.2) % Platelet Estimate (Adequate) Polychromasia Anisocytosis Schistocytes PT (11.1-14.7) Seconds INR APTT (22.3-36.8) Seconds Sodium Potassium Chloride Carbon Dioxide Anion Gap BUN 24 H Creatinine Cancelled 1.10 H Estim Creat Clear Calc Cancelled 61 Estimated GFR Cancelled Glucose Lactic Acid (0.7-2.0) mmol/L Calcium Total Bilirubin AST ALT Alkaline Phosphatase Troponin I (0.000-0.034) ng/mL C-Reactive Protein Total Protein Albumin 10/05/24 10/05/24 10/05/24 Range/Units 16:07 16:07 16:07 WBC (4.5-10.0) K/mm3 RBC (4.2-5.4) M/mm3 Hgb (12.0-15.0) g/dL Hct (37.0-47.0) % MCV (80-100) fl MCH (26-34) pg MCHC (32-36) g/dl RDW (11.5-14.5) % Plt Count (150-375) k/mm3 MPV (7.4-10.4) fl Immature Gran % (Auto) (0-0.5) % Neut % (Auto) (45.5-73.1) % Lymph % (Auto) (18.3-44.2) % [place] % (Auto) (2.6-8.5) % Eos % (Auto) (0-4.4) % Baso % (Auto) (0.2-1.2) % Lymph # (Auto) (0.9-3.2) K/mm3 [place] # (Auto) (0.1-0.6) K/mm3 Eos # (Auto) (0-0.3) K/mm3 Baso # (Auto) (0.0-0.1) K/mm3 Abs Immat Gran (auto) (0.00-0.031) K/mm3 Absolute Neuts (auto) (1.3-6.7) K/mm3 Absolute Nucleated RBC (0.0-0.012) K/mm3 Nucleated RBC % (0.0-0.2) % Platelet Estimate (Adequate) Polychromasia Anisocytosis Schistocytes PT (11.1-14.7) Seconds INR APTT (22.3-36.8) Seconds Sodium Potassium Chloride Carbon Dioxide Anion Gap BUN Creatinine Estim Creat Clear Calc Estimated GFR 50 L Glucose Cancelled 87 Lactic Acid 2.0 (0.7-2.0) mmol/L Calcium Cancelled 9.0 Total Bilirubin Cancelled AST ALT Alkaline Phosphatase Troponin I (0.000-0.034) ng/mL C-Reactive Protein Total Protein Albumin 10/05/24 10/05/24 10/05/24 Range/Units 16:07 16:07 16:07 WBC (4.5-10.0) K/mm3 RBC (4.2-5.4) M/mm3 Hgb (12.0-15.0) g/dL Hct (37.0-47.0) % MCV (80-100) fl MCH (26-34) pg MCHC (32-36) g/dl RDW (11.5-14.5) % Plt Count (150-375) k/mm3 MPV (7.4-10.4) fl Immature Gran % (Auto) (0-0.5) % Neut % (Auto) (45.5-73.1) % Lymph % (Auto) (18.3-44.2) % [place] % (Auto) (2.6-8.5) % Eos % (Auto) (0-4.4) % Baso % (Auto) (0.2-1.2) % Lymph # (Auto) (0.9-3.2) K/mm3 [place] # (Auto) (0.1-0.6) K/mm3 Eos # (Auto) (0-0.3) K/mm3 Baso # (Auto) (0.0-0.1) K/mm3 Abs Immat Gran (auto) (0.00-0.031) K/mm3 Absolute Neuts (auto) (1.3-6.7) K/mm3 Absolute Nucleated RBC (0.0-0.012) K/mm3 Nucleated RBC % (0.0-0.2) % Platelet Estimate (Adequate) Polychromasia Anisocytosis Schistocytes PT (11.1-14.7) Seconds INR APTT (22.3-36.8) Seconds Sodium Potassium Chloride Carbon Dioxide Anion Gap BUN Creatinine Estim Creat Clear Calc Estimated GFR Glucose Lactic Acid (0.7-2.0) mmol/L Calcium Total Bilirubin 2.9 H AST Cancelled 32 ALT Cancelled 15 Alkaline Phosphatase Cancelled Troponin I (0.000-0.034) ng/mL C-Reactive Protein Total Protein Albumin 10/05/24 10/05/24 10/05/24 Range/Units 16:07 16:07 16:07 WBC (4.5-10.0) K/mm3 RBC (4.2-5.4) M/mm3 Hgb (12.0-15.0) g/dL Hct (37.0-47.0) % MCV (80-100) fl MCH (26-34) pg MCHC (32-36) g/dl RDW (11.5-14.5) % Plt Count (150-375) k/mm3 MPV (7.4-10.4) fl Immature Gran % (Auto) (0-0.5) % Neut % (Auto) (45.5-73.1) % Lymph % (Auto) (18.3-44.2) % [place] % (Auto) (2.6-8.5) % Eos % (Auto) (0-4.4) % Baso % (Auto) (0.2-1.2) % Lymph # (Auto) (0.9-3.2) K/mm3 [place] # (Auto) (0.1-0.6) K/mm3 Eos # (Auto) (0-0.3) K/mm3 Baso # (Auto) (0.0-0.1) K/mm3 Abs Immat Gran (auto) (0.00-0.031) K/mm3 Absolute Neuts (auto) (1.3-6.7) K/mm3 Absolute Nucleated RBC (0.0-0.012) K/mm3 Nucleated RBC % (0.0-0.2) % Platelet Estimate (Adequate) Polychromasia Anisocytosis Schistocytes PT (11.1-14.7) Seconds INR APTT (22.3-36.8) Seconds Sodium Potassium Chloride Carbon Dioxide Anion Gap BUN Creatinine Estim Creat Clear Calc Estimated GFR Glucose Lactic Acid (0.7-2.0) mmol/L Calcium Total Bilirubin AST ALT Alkaline Phosphatase 116 Troponin I 0.035 H* (0.000-0.034) ng/mL C-Reactive Protein Cancelled > 9.0 H Total Protein Cancelled 8.0 Albumin Cancelled 10/05/24 Range/Units 16:07 WBC (4.5-10.0) K/mm3 RBC (4.2-5.4) M/mm3 Hgb (12.0-15.0) g/dL Hct (37.0-47.0) % MCV (80-100) fl MCH (26-34) pg MCHC (32-36) g/dl RDW (11.5-14.5) % Plt Count (150-375) k/mm3 MPV (7.4-10.4) fl Immature Gran % (Auto) (0-0.5) % Neut % (Auto) (45.5-73.1) % Lymph % (Auto) (18.3-44.2) % [place] % (Auto) (2.6-8.5) % Eos % (Auto) (0-4.4) % Baso % (Auto) (0.2-1.2) % Lymph # (Auto) (0.9-3.2) K/mm3 [place] # (Auto) (0.1-0.6) K/mm3 Eos # (Auto) (0-0.3) K/mm3 Baso # (Auto) (0.0-0.1) K/mm3 Abs Immat Gran (auto) (0.00-0.031) K/mm3 Absolute Neuts (auto) (1.3-6.7) K/mm3 Absolute Nucleated RBC (0.0-0.012) K/mm3 Nucleated RBC % (0.0-0.2) % Platelet Estimate (Adequate) Polychromasia Anisocytosis Schistocytes PT (11.1-14.7) Seconds INR APTT (22.3-36.8) Seconds Sodium Potassium Chloride Carbon Dioxide Anion Gap BUN Creatinine Estim Creat Clear Calc Estimated GFR Glucose Lactic Acid (0.7-2.0) mmol/L Calcium Total Bilirubin AST ALT Alkaline Phosphatase Troponin I (0.000-0.034) ng/mL C-Reactive Protein Total Protein Albumin 3.5 Imaging Data Attestation: I personally reviewed and interpreted this imaging study as follows: My impression: Impressions Chest X-Ray 10/05/24 16:00 IMPRESSION: No acute cardiopulmonary process. ECG Data EKG #1: Attestation: I personally reviewed and interpreted this ECG as follows: ECG completion date: 10/05/24 ECG completion time: 14:55 Prior ECG tracings: available for review Interpretation: No identifiable P waves, narrow complex tachycardia with regular rhythm consistent with atrial fibrillation with rapid ventricular response, QTC normal 473, QRS of 86. No ST segment elevations, depressions or any ectopy. Overall AFib RVR, compared to previous EKG with similar AFib she is now in rapid ventricular response. EKG Interpretation: tachycardia, atrial fibrillation, no ST changes, normal QRS, normal QT and no acute changes Critical Care Time Critical Care Time Critical Care Time: Yes Total Critical Care Time: 60 Discharge Plan Discharge Clinical Impression: Atrial fibrillation with rapid ventricular response, Sepsis, Leg wound, left, Leg wound, right, Morbid obesity with BMI of 50.0-59.9, adult Patient Disposition: Still a Patient Condition: Guarded Prognosis Time of Disposition: 17:38
[2024-10-05] MEDS: dilTIAZem 100 MG/100 ML 100 MG/100 ML BAG IV CONT (15:16)
[2024-10-05] MEDS: LACTATED RINGERS 1,000 ML 999 ML IV CONT ×2 (15:27→17:15)
[2024-10-05 16:19] LABS: Basophils Absolute Auto 0.1 K/mm3 (0.0-0.1); Basophils Percent Auto 0.3 % (0.2-1.2); Eosinophils Percent Auto 0.1 % (0-4.4); Hematocrit 28.6 % (37.0-47.0); Hemoglobin 9.3 g/dL (12.0-15.0); Immature Granulocyte Absolute 0.12 K/mm3 (0.00-0.031); Immature Granulocyte Percent A 0.6 % (0-0.5); Lymphocytes Absolute Auto 0.57 K/mm3 (0.9-3.2); Mean Corpuscular HGB Conc 32.5 g/dl (32-36); Mean Corpuscular Hemoglobin 31.3 pg (26-34); Mean Corpuscular Volume 96.3 fl (80-100); Mean Platelet Volume 9.3 fl (7.4-10.4); Monocytes Absolute Auto 0.7 K/mm3 (0.1-0.6); Monocytes Percent Auto 3.5 % (2.6-8.5); Neutrophils Absolute Auto 17.5 K/mm3 (1.3-6.7); Neutrophils Percent Auto 92.5 % (45.5-73.1); Platelet Count Result 292 k/mm3 (150-375); Red Blood Count 2.97 M/mm3 (4.2-5.4); Red Cell Distribution Width 15.5 % (11.5-14.5)
[2024-10-05] MEDS: CEFEPIME 2 GM/NS 50 ML 2 GM/50 ML BAG IVPB (16:19)
[2024-10-05 16:35] LABS: Alanine Aminotransferase 15 U/L (6-35); Albumin Level 3.5 g/dL (3.5-5.1); Alkaline Phosphatase 116 U/L (38-126); Anion Gap 9 mmol/L (4-12); Aspartate Amino Transferase 32 U/L (14-36); Bilirubin,Total 2.9 mg/dL (0.2-1.3); Blood Urea Nitrogen 24 mg/dL (7-17); Carbon Dioxide 23 mmol/L (22-30); Chloride 104 mmol/L (98-107); Estimated CRCL calculation 61 ml/min; Estimated Glomerular Filt Rate 50; Glucose 87 mg/dL (65-110); Potassium 4.4 mmol/L (3.4-5.0); Sodium 136 mmol/L (137-145)
[2024-10-05 16:40] LABS: Anisocytosis 1+; Platelet Estimate Adequate (Adequate); Polychromasia 1+
[2024-10-05 16:41] LABS: Schistocytes None Seen
[2024-10-05 16:45] LABS: INR 1.5; Prothrombin Time 18.8 Seconds (11.1-14.7)
[2024-10-05 16:46] LABS: Partial Thromboplastin Time 31.8 Seconds (22.3-36.8)
[2024-10-05 16:49] LABS: CRP > 9.0 mg/dL (<1.0); Troponin I 0.035 ng/mL (0.000-0.034)
[2024-10-05] MEDS: VANCOMYCIN 1,250 MG/NS 250 ML 1,250 MG/250 ML BAG 166.67 MG IVPB ×2 (19:20→22:20)
[2024-10-05 19:53] LABS: Add Urine Microscopic? YES; Appearance Urine Cloudy (Clear); Bacteria Urine None Seen /hpf; Bilirubin Urine 1+ (Negative); Blood Urine Negative (Negative); Budding Yeast Urine Present /hpf; Color Urine Dark Yellow (Yellow); Glucose Urine UA Negative (Negative); Ketones Urine Trace mg/dL (Negative); Leukocyte Esterase Ur 1+ LEU/UL (Negative); Mucus Urine Present /lpf; Need Manual Microscopic Reviewed; Nitrate Urine Negative (Negative); Protein Urine 1+ mg/dL (Negative); Specific Grav Ur 1.026 (1.001-1.035); Squamous Epithelial Cell Urine Few /hpf (Few)
[2024-10-05] MEDS: ACETAMINOPHEN 325 MG TABLET 650 MG PO (22:30)
[2024-10-05] MEDS: SODIUM CHLORIDE 0.9% IV 1,000 ML 70 ML IV CONT (22:31)
--- NOTE | 2024-10-05 23:40 | P.HP_ITS ---
H&P: HPI History of Present Illness Date/Time: 10/05/24 23:40 Chief Complaint: ?Feeling crappy? Narrative: 63-year-old female well known to the hospitalist service with past medical history of morbid obesity BMI greater than 50, paroxysmal atrial fibrillation on anticoagulation, moderate to severe mitral and tricuspid valve regurgitation, right ventricular enlargement with history of right ventricular overload, and lipedema with associated lymphedema who has had chronic nonhealing wounds who presented to the ER feeling overall crappy., the patient had recently been hospitalized for anemia and received iron infusions and blood transfusion. She returned home on her home cardiac meds including Xarelto with the addition of iron supplementation. She has been taking her medications as directed. She stated today she was discharged from the hospital in August she started having weeping from her legs. But she overall felt okay until about a week ago. Since that time she has started having purulence smelling drainage from her feet and legs. She reported subjective fevers and chills. While in the ER she spiked a temperature up to 100.9. She has been feeling lightheaded and dizzy. She has not had any increased shortness of breath from baseline. She denies any chest pain or palpitations. She was back in AFib RVR when she arrived to the ER. She denies any urinary symptoms in is been having normal bowel movements. In the ER she received cefepime and vancomycin. Blood cultures were obtained. She received 2 L of LR was placed on a Cardizem drip after Cardizem bolus. After being on 1 bag of a Cardizem drip patient's heart rate was down to 109. The patient reports she received her morning medications but had not received her evening medications. Review of Systems 2 Review of Systems: 12 systems were reviewed with pertinent positives and negatives per HPI. Except as documented in the HPI, all other systems were reviewed and are negative. 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 Moderate tricuspid valve regurgitation Morbid obesity with BMI of 60.0-69.9, adult Paroxysmal atrial fibrillation Severe mitral valve regurgitation Surgical History Surgical History History of foot surgery Bilateral foot surgery when she was young History of total abdominal hysterectomy and bilateral salpingo-oophorectomy (2011) Family History Family History Mother CKD (chronic kidney disease), Onset Age: 18 Glomerular nephritis Father Lung cancer Sibling Non-Hodgkin lymphoma Recurrent kidney stones Social History Social History (Updated 10/06/24 @ 02:46 by Isabel Welch DO) Social History: Surrogate medical decision maker: Kishan Forrester, brother. Code status: Full Code. However she would not want long-term ventilation or feeding tube. Smoking status: Never smoker Second hand tobacco smoke exposure: No Alcohol intake: never Substance use: never Substance use type: does not use Do You Feel Safe in your Home?: Yes Lack of Transportation: No Lack of Food: Never True Current Housing: I Have Housing Concerned About Future Housing: No Difficulty Paying Gas/Electric Bills: No Difficulty Paying for Meds: No Currently Unemployed: No Education: Master's Degree or Higher Difficulty w/ Childcare or Family Care: No Additional living arrangements comments: Lives in her own home in [place] with her boxer named Dana. No children. 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: No Meds Home Medications and Allergies Home Medications ?Medication ?Instructions ?Recorded ?Confirmed ?Type multivit with minerals-iron 18 1 tablet PO DAILY 02/09/24 10/05/24 History mg-folic ac 400 mcg-vit K 25 mcg tablet (Adults Multivitamin) metoprolol tartrate 25 mg tablet 25 mg PO Q12HR #60 tabs 02/12/24 10/05/24 Rx diltiazem HCl 120 mg 120 mg PO DAILY #60 caps 04/18/24 10/05/24 Rx capsule,extended release 24 hr (Cardizem CD) cyanocobalamin (vitamin B-12) 1,000 mcg PO QAM #30 tabs 07/26/24 10/05/24 Rx 1,000 mcg tablet (Vitamin B-12) midodrine 10 mg tablet 10 mg PO TID #90 tabs 07/26/24 10/05/24 Rx rivaroxaban 20 mg tablet (Xarelto) 10 mg (1/2 x 20 mg) PO DAILY@1700 07/26/24 10/05/24 Rx #30 tabs ferrous sulfate 325 mg (65 mg 325 mg PO BID #14 tabs 09/14/24 10/05/24 Rx iron) tablet,delayed release furosemide 40 mg tablet 40 mg PO DAILY #30 tabs 09/14/24 10/05/24 Rx potassium chloride 10 mEq 10 meq PO BID #60 caps 09/14/24 10/05/24 Rx capsule,extended release Allergies Allergy/AdvReac Type Severity Reaction Status Date / Time codeine Allergy Unknown Other Verified 10/05/24 23:35 diazepam Allergy Unknown Other Verified 10/05/24 23:35 Vital Signs Vital Signs - 24 hr 10/05/24 14:32 10/05/24 14:58 10/05/24 15:16 Temperature 99.0 F 99.4 F Pulse Rate 164 H 148 H 115 H Respiratory Rate 27 H 24 H Blood Pressure 108/73 97/66 L 99/67 L Pulse Oximetry 100 97 Oxygen Delivery Room Air 10/05/24 16:30 10/05/24 17:19 10/05/24 17:36 Temperature 98.8 F Pulse Rate 116 H 121 H 123 H Respiratory Rate 25 H 28 H Blood Pressure 92/56 L 105/94 H 105/94 H Pulse Oximetry 98 96 Oxygen Delivery 10/05/24 18:11 10/05/24 21:37 Temperature 100.9 F H Pulse Rate 132 H 108 H Respiratory Rate 22 H Blood Pressure 111/78 107/72 Pulse Oximetry 96 Oxygen Delivery Exam 2 Narrative: Weight 142.6 kg BMI 57.5 Const: Other: Acutely ill-appearing, morbidly obese, lying in bed with head of bed at 20?, appears older than stated age HENMT: Other: Mucous membranes are dry, no oral pharyngeal erythema, crowded posterior oropharynx, no conjunctival pallor, no scleral icterus Neck: Other: Short neck, large neck circumference, difficult to assess for thyromegaly Resp: Other: Clear to auscultation anterior hurt, no increased work of breathing Cardio: Other: Irregularly irregular, 2+ bilateral radial pedal pulses, difficult to assess for JVD due to body habitus GI: Other: Obese, soft, nontender, normoactive bowel sounds Skin: Other: Scattered shallow wounds approximate bilateral lower extremities that her draining purulent, malodorous serous fluid in copious amounts, extremities are hot to touch from below the knee down to the ankle and feet, erythematous in color no open wounds to the feet, calluses to the heels Neuro: Other: Alert orient, speech is clear, no facial asymmetry, no localizing neurologic deficits noted during the course of conversation Extrem: Other: Marked lymphedema and lipedema bilateral lower extremities with open wounds as discussed above pitting edema to the feet edema to the remainder of the legs Psych: Other: Appropriate mood and affect, pleasant and cooperative, judgment and insight intact H&P: Results Labs Labs: Laboratory Tests 10/05/24 16:07 10/05/24 10/05/24 10/05/24 16:07 16:07 16:07 WBC 19.0 H RBC 2.97 L Hgb 9.3 L Hct 28.6 L MCV 96.3 MCH 31.3 MCHC 32.5 RDW 15.5 H Plt Count 292 MPV 9.3 Immature Gran % (Auto) 0.6 H Neut % (Auto) 92.5 H Lymph % (Auto) 3.0 L [place] % (Auto) 3.5 Eos % (Auto) 0.1 Baso % (Auto) 0.3 Lymph # (Auto) 0.57 L [place] # (Auto) 0.7 H Eos # (Auto) 0.0 Baso # (Auto) 0.1 Abs Immat Gran (auto) 0.12 H Absolute Neuts (auto) 17.5 H Absolute Nucleated RBC 0.000 Nucleated RBC % 0.0 Platelet Estimate Adequate Polychromasia 1+ Anisocytosis 1+ Schistocytes None seen PT 18.8 H INR 1.5 APTT 31.8 Sodium Cancelled 136 L Potassium Cancelled 4.4 Chloride Cancelled Carbon Dioxide Anion Gap BUN Creatinine Estim Creat Clear Calc Estimated GFR Glucose Lactic Acid Calcium Total Bilirubin AST ALT Alkaline Phosphatase Troponin I C-Reactive Protein Total Protein Albumin Procalcitonin Urine Color Urine Appearance Urine pH Ur Specific [place] Urine Protein Urine Glucose (UA) Urine Ketones Ur Blood (Man) Urine Nitrate Urine Bilirubin Urine Urobilinogen Add Ur Microanalysis Leukocyte Esterase Rfl Urine RBC Urine WBC Ur Squamous Epith Cells Urine Bacteria Urine Casts Urine Mucus Urine Yeast (Budding) 10/05/24 10/05/24 10/05/24 16:07 16:07 16:07 WBC RBC Hgb Hct MCV MCH MCHC RDW Plt Count MPV Immature Gran % (Auto) Neut % (Auto) Lymph % (Auto) [place] % (Auto) Eos % (Auto) Baso % (Auto) Lymph # (Auto) [place] # (Auto) Eos # (Auto) Baso # (Auto) Abs Immat Gran (auto) Absolute Neuts (auto) Absolute Nucleated RBC Nucleated RBC % Platelet Estimate Polychromasia Anisocytosis Schistocytes PT INR APTT Sodium Potassium Chloride 104 Carbon Dioxide Cancelled 23 Anion Gap Cancelled 9 BUN Cancelled Creatinine Estim Creat Clear Calc Estimated GFR Glucose Lactic Acid Calcium Total Bilirubin AST ALT Alkaline Phosphatase Troponin I C-Reactive Protein Total Protein Albumin Procalcitonin Urine Color Urine Appearance Urine pH Ur Specific [place] Urine Protein Urine Glucose (UA) Urine Ketones Ur Blood (Man) Urine Nitrate Urine Bilirubin Urine Urobilinogen Add Ur Microanalysis Leukocyte Esterase Rfl Urine RBC Urine WBC Ur Squamous Epith Cells Urine Bacteria Urine Casts Urine Mucus Urine Yeast (Budding) 10/05/24 10/05/24 10/05/24 16:07 16:07 16:07 WBC RBC Hgb Hct MCV MCH MCHC RDW Plt Count MPV Immature Gran % (Auto) Neut % (Auto) Lymph % (Auto) [place] % (Auto) Eos % (Auto) Baso % (Auto) Lymph # (Auto) [place] # (Auto) Eos # (Auto) Baso # (Auto) Abs Immat Gran (auto) Absolute Neuts (auto) Absolute Nucleated RBC Nucleated RBC % Platelet Estimate Polychromasia Anisocytosis Schistocytes PT INR APTT Sodium Potassium Chloride Carbon Dioxide Anion Gap BUN 24 H Creatinine Cancelled 1.10 H Estim Creat Clear Calc Cancelled 61 Estimated GFR Cancelled Glucose Lactic Acid Calcium Total Bilirubin AST ALT Alkaline Phosphatase Troponin I C-Reactive Protein Total Protein Albumin Procalcitonin Urine Color Urine Appearance Urine pH Ur Specific [place] Urine Protein Urine Glucose (UA) Urine Ketones Ur Blood (Man) Urine Nitrate Urine Bilirubin Urine Urobilinogen Add Ur Microanalysis Leukocyte Esterase Rfl Urine RBC Urine WBC Ur Squamous Epith Cells Urine Bacteria Urine Casts Urine Mucus Urine Yeast (Budding) 10/05/24 10/05/24 10/05/24 16:07 16:07 16:07 WBC RBC Hgb Hct MCV MCH MCHC RDW Plt Count MPV Immature Gran % (Auto) Neut % (Auto) Lymph % (Auto) [place] % (Auto) Eos % (Auto) Baso % (Auto) Lymph # (Auto) [place] # (Auto) Eos # (Auto) Baso # (Auto) Abs Immat Gran (auto) Absolute Neuts (auto) Absolute Nucleated RBC Nucleated RBC % Platelet Estimate Polychromasia Anisocytosis Schistocytes PT INR APTT Sodium Potassium Chloride Carbon Dioxide Anion Gap BUN Creatinine Estim Creat Clear Calc Estimated GFR 50 L Glucose Cancelled 87 Lactic Acid 2.0 Calcium Cancelled 9.0 Total Bilirubin Cancelled AST ALT Alkaline Phosphatase Troponin I C-Reactive Protein Total Protein Albumin Procalcitonin Urine Color Urine Appearance Urine pH Ur Specific [place] Urine Protein Urine Glucose (UA) Urine Ketones Ur Blood (Man) Urine Nitrate Urine Bilirubin Urine Urobilinogen Add Ur Microanalysis Leukocyte Esterase Rfl Urine RBC Urine WBC Ur Squamous Epith Cells Urine Bacteria Urine Casts Urine Mucus Urine Yeast (Budding) 10/05/24 10/05/24 10/05/24 16:07 16:07 16:07 WBC RBC Hgb Hct MCV MCH MCHC RDW Plt Count MPV Immature Gran % (Auto) Neut % (Auto) Lymph % (Auto) [place] % (Auto) Eos % (Auto) Baso % (Auto) Lymph # (Auto) [place] # (Auto) Eos # (Auto) Baso # (Auto) Abs Immat Gran (auto) Absolute Neuts (auto) Absolute Nucleated RBC Nucleated RBC % Platelet Estimate Polychromasia Anisocytosis Schistocytes PT INR APTT Sodium Potassium Chloride Carbon Dioxide Anion Gap BUN Creatinine Estim Creat Clear Calc Estimated GFR Glucose Lactic Acid Calcium Total Bilirubin 2.9 H AST Cancelled 32 ALT Cancelled 15 Alkaline Phosphatase Cancelled Troponin I C-Reactive Protein Total Protein Albumin Procalcitonin Urine Color Urine Appearance Urine pH Ur Specific [place] Urine Protein Urine Glucose (UA) Urine Ketones Ur Blood (Man) Urine Nitrate Urine Bilirubin Urine Urobilinogen Add Ur Microanalysis Leukocyte Esterase Rfl Urine RBC Urine WBC Ur Squamous Epith Cells Urine Bacteria Urine Casts Urine Mucus Urine Yeast (Budding) 10/05/24 10/05/24 10/05/24 16:07 16:07 16:07 WBC RBC Hgb Hct MCV MCH MCHC RDW Plt Count MPV Immature Gran % (Auto) Neut % (Auto) Lymph % (Auto) [place] % (Auto) Eos % (Auto) Baso % (Auto) Lymph # (Auto) [place] # (Auto) Eos # (Auto) Baso # (Auto) Abs Immat Gran (auto) Absolute Neuts (auto) Absolute Nucleated RBC Nucleated RBC % Platelet Estimate Polychromasia Anisocytosis Schistocytes PT INR APTT Sodium Potassium Chloride Carbon Dioxide Anion Gap BUN Creatinine Estim Creat Clear Calc Estimated GFR Glucose Lactic Acid Calcium Total Bilirubin AST ALT Alkaline Phosphatase 116 Troponin I 0.035 H* C-Reactive Protein Cancelled > 9.0 H Total Protein Cancelled 8.0 Albumin Cancelled Procalcitonin Urine Color Urine Appearance Urine pH Ur Specific [place] Urine Protein Urine Glucose (UA) Urine Ketones Ur Blood (Man) Urine Nitrate Urine Bilirubin Urine Urobilinogen Add Ur Microanalysis Leukocyte Esterase Rfl Urine RBC Urine WBC Ur Squamous Epith Cells Urine Bacteria Urine Casts Urine Mucus Urine Yeast (Budding) 10/05/24 10/05/24 10/05/24 16:07 19:34 23:46 WBC RBC Hgb Hct MCV MCH MCHC RDW Plt Count MPV Immature Gran % (Auto) Neut % (Auto) Lymph % (Auto) [place] % (Auto) Eos % (Auto) Baso % (Auto) Lymph # (Auto) [place] # (Auto) Eos # (Auto) Baso # (Auto) Abs Immat Gran (auto) Absolute Neuts (auto) Absolute Nucleated RBC Nucleated RBC % Platelet Estimate Polychromasia Anisocytosis Schistocytes PT INR APTT Sodium Potassium Chloride Carbon Dioxide Anion Gap BUN Creatinine Estim Creat Clear Calc Estimated GFR Glucose Lactic Acid 1.5 Calcium Total Bilirubin AST ALT Alkaline Phosphatase Troponin I 0.041 H* C-Reactive Protein Total Protein Albumin 3.5 Procalcitonin 1.8 Urine Color Dark yellow Urine Appearance Cloudy H Urine pH 5.0 Ur Specific [place] 1.026 Urine Protein 1+ H Urine Glucose (UA) Negative Urine Ketones Trace H Ur Blood (Man) Negative Urine Nitrate Negative Urine Bilirubin 1+ H Urine Urobilinogen 1.0 Add Ur Microanalysis Reviewed Leukocyte Esterase Rfl 1+ H Urine RBC 6-10 H Urine WBC 6-10 H Ur Squamous Epith Cells Few Urine Bacteria None seen Urine Casts 3-5 Urine Mucus Present Urine Yeast (Budding) Present H 10/06/24 05:00 WBC RBC Hgb Hct MCV MCH MCHC RDW Plt Count MPV Immature Gran % (Auto) Neut % (Auto) Lymph % (Auto) [place] % (Auto) Eos % (Auto) Baso % (Auto) Lymph # (Auto) [place] # (Auto) Eos # (Auto) Baso # (Auto) Abs Immat Gran (auto) Absolute Neuts (auto) Absolute Nucleated RBC Nucleated RBC % Platelet Estimate Polychromasia Anisocytosis Schistocytes PT INR APTT Sodium Pending Potassium Pending Chloride Pending Carbon Dioxide Pending Anion Gap Pending BUN Pending Creatinine Pending Estim Creat Clear Calc Pending Estimated GFR Pending Glucose Pending Lactic Acid Calcium Pending Total Bilirubin AST ALT Alkaline Phosphatase Troponin I C-Reactive Protein Total Protein Albumin Procalcitonin Urine Color Urine Appearance Urine pH Ur Specific [place] Urine Protein Urine Glucose (UA) Urine Ketones Ur Blood (Man) Urine Nitrate Urine Bilirubin Urine Urobilinogen Add Ur Microanalysis Leukocyte Esterase Rfl Urine RBC Urine WBC Ur Squamous Epith Cells Urine Bacteria Urine Casts Urine Mucus Urine Yeast (Budding) Impressions Chest X-Ray 10/05/24 16:00 IMPRESSION: No acute cardiopulmonary process. All imaging and EKGs personally reviewed and interpreted. And unless stated otherwise agree with radiologic and cardiology interpretation. Assessment and Plan Assessment and plan (1) Sepsis: Qualifiers: Sepsis type: sepsis due to unspecified organism Sepsis acute organ dysfunction status: with acute organ dysfunction Severe sepsis acute organ dysfunction type: acute renal failure Acute renal failure type: unspecified S evere sepsis shock status: without septic shock Qualified Code(s): A41.9 - Sepsis, unspecified organism; R65.20 - Severe sepsis without septic shock; N17.9 - Acute kidney failure, unspecified Code(s): A41.9 - Sepsis, unspecified organism Status: Acute (2) Leg wound, left: Qualifiers: Encounter type: initial encounter Qualified Code(s): S81.802A - Unspecified open wound, left lower leg, initial encounter Code(s): S81.802A - Unspecified open wound, left lower leg, initial encounter Status: Acute (3) Leg wound, right: Qualifiers: Encounter type: initial encounter Qualified Code(s): S81.801A - Unspecified open wound, right lower leg, initial encounter Code(s): S81.801A - Unspecified open wound, right lower leg, initial encounter Status: Acute (4) Paroxysmal atrial fibrillation with RVR: Code(s): I48.0 - Paroxysmal atrial fibrillation Status: Acute (5) Acute kidney injury: Code(s): N17.9 - Acute kidney failure, unspecified Status: Acute Plan Patient met sepsis criteria with fever, tachycardia, tachypnea and leukocytosis. Patient has sepsis due to leg wounds/cellulitis bilateral lower extremities blood cultures have been obtained and are pending. Patient was initially given cefepime in the ER but given that the wounds are venous stasis in nature will switch antibiotics to Zosyn per antibiotic stewardship guidelines. The add vancomycin as well. Patient received 2 L IV fluid in the ER. She has had improvement in her AFib RVR. Her rapid ventricular the due to a component of fever and intravascular volume depletion more so than electrical dripping tachycardia. The patient had not received her evening metoprolol dose will be given when the patient arrived to the IMU. Will resume patient's home Cardizem as well in her. Currently Cardizem drip is on hold given her improvement in her heart rate. Patient does have chronic CHF but appears actually intervascular volume depleted. Will continue IV fluids at a gentle rate overnight they will be stopped in the morning and will re-evaluate volume status at that time. Will also hold home Lasix given acute kidney injury. Will repeat electrolyte panel in a.m.. Will continue home Xarelto. The patient states that she had a at length during her prior hospitalization that did not demonstrate you. She is not interested in repeating ApneaLink or polysomnogram. Quality VTE Prophylaxis VTE prophylaxis: pharmacologic ordered (Continue home Xarelto) Hospitalist MIPS Advance Care Plan I have confirmed that the patient's Advanced Care Plan is present, code status is documented, or surrogate decision maker is listed in patient medical record.: Yes Medication Reconciliation I have utilized all available resources to obtain, update and review the patients current medications (includes all prescriptions, OTC, herbals, cannabis, and nutritional supplements).: Yes
[2024-10-06] VITALS (17 sets, daily range): BP systolic 91–105; BP diastolic 57–75; PULSE 75–107; RESP 16–21; TEMP 36.2–36.7; O2SAT 96–99
[2024-10-06] MEDS: PIPERACILLN/TAZ 3.375GM/NS50ML 3.375 GM/50 ML BAG IVPB ×4 (00:01→17:27)
[2024-10-06 00:12] LABS: Lactic Acid Reflex 1.5 mmol/L (0.7-2.0)
--- NOTE | 2024-10-06 00:14 | PC.NURSE ---
Admission report to IMU.
[2024-10-06 00:30] LABS: Troponin I 0.041 ng/mL (0.000-0.034)
--- NOTE | 2024-10-06 00:33 | PC.NURSE ---
Dr. Welch at bedside with patient. This RN spoke with Dr. Welch about continuing the diltiazem drip or not due to patient's heart rate being in the upper 90s to 110s.
[2024-10-06 00:40] LABS: Procalcitonin 1.8 ng/mL
--- NOTE | 2024-10-06 00:42 | PC.NURSE ---
Dr. Welch want the diltiazem drip held at this time, but the order to plant machinist case the patient needs it at a later time. States she still wants patient in an IMU bed.
--- NOTE | 2024-10-06 01:29 | ADMGEN ---
This patient, Pili Forrester, was admitted to IMU Room 201-01. Patient/family oriented to hospital policies and general routines including ID bracelet, bed and alarms, visiting hours, pain management, procedures, bathroom and other care routines, personal items, smoking policy, room service/diet, and visiting hours. Information on how to activate the Rapid Response Team has been discussed. Patient/Family are encouraged to report perceived risks to care and to ask questions if they do not understand what they are told or what they should do.
[2024-10-06] MEDS: METOPROLOL TARTRATE 25 MG TABLET PO (02:41)
[2024-10-06] MEDS: MIDODRINE HCL 10 MG TABLET PO ×3 (07:39→17:27)
[2024-10-06 07:46] LABS: Basophils Absolute Auto 0.1 K/mm3 (0.0-0.1); Basophils Percent Auto 0.5 % (0.2-1.2); Eosinophils Absolute Auto 0.2 K/mm3 (0-0.3); Eosinophils Percent Auto 1.6 % (0-4.4); Hematocrit 25.3 % (37.0-47.0); Hemoglobin 8.6 g/dL (12.0-15.0); Immature Granulocyte Absolute 0.07 K/mm3 (0.00-0.031); Immature Granulocyte Percent A 0.6 % (0-0.5); Lymphocytes Absolute Auto 0.93 K/mm3 (0.9-3.2); Lymphocytes Percent Auto 7.9 % (18.3-44.2); Mean Corpuscular Hemoglobin 33.2 pg (26-34); Mean Corpuscular Volume 97.7 fl (80-100); Mean Platelet Volume 10.7 fl (7.4-10.4); Monocytes Absolute Auto 0.7 K/mm3 (0.1-0.6); Monocytes Percent Auto 5.6 % (2.6-8.5); Neutrophils Absolute Auto 9.9 K/mm3 (1.3-6.7); Neutrophils Percent Auto 83.8 % (45.5-73.1); Platelet Count Result 205 k/mm3 (150-375); Red Blood Count 2.59 M/mm3 (4.2-5.4); Red Cell Distribution Width 15.6 % (11.5-14.5); White Blood Count 11.8 K/mm3 (4.5-10.0)
[2024-10-06 08:00] LABS: Anion Gap 6 mmol/L (4-12); Blood Urea Nitrogen 25 mg/dL (7-17); Calcium 8.4 mg/dL (8.4-10.2); Carbon Dioxide 21 mmol/L (22-30); Chloride 105 mmol/L (98-107); Estimated CRCL calculation 62 ml/min; Estimated Glomerular Filt Rate 50; Glucose 70 mg/dL (65-110); Potassium 4.1 mmol/L (3.4-5.0); Sodium 132 mmol/L (137-145)
[2024-10-06] MEDS: FERROUS SULFATE 325 MG TABLET DR PO ×2 (09:13→17:27)
[2024-10-06] MEDS: dilTIAZem HCL CD 120 MG CAP.24HR PO (09:14)
[2024-10-06] MEDS: POTASSIUM CHLORIDE 10 MEQ ER TABLET PO (09:14)
[2024-10-06] MEDS: CYANOCOBALAMIN 1,000 MCG TABLET 1000 MCG PO (09:15)
[2024-10-06] MEDS: MULTIVITAMINS /C LUTEIN (CENTRUM SILVER) TABLET *BKC 1 TAB PO (09:15)
--- NOTE | 2024-10-06 13:23 | P.PNIM_ITS ---
Progress Note: A&P Assessment and Plan (1) Paroxysmal atrial fibrillation with RVR: Code(s): I48.0 - Paroxysmal atrial fibrillation Status: Acute (2) Sepsis: Qualifiers: Acute renal failure type: unspecified Sepsis acute organ dysfunction status: with acute organ dysfunction Sepsis type: sepsis due to unspecified organism Severe sepsis acute organ dysfunction type: acute renal failure Severe sepsis shock status: without septic shock Qualified Code(s): A41.9 - Sepsis, unspecified organism; R65.20 - Severe sepsis without septic shock; N17.9 - Acute kidney failure, unspecified Code(s): A41.9 - Sepsis, unspecified organism Status: Acute (3) Leg wound, left: Qualifiers: Encounter type: initial encounter Qualified Code(s): S81.802A - Unspecified open wound, left lower leg, initial encounter Code(s): S81.802A - Unspecified open wound, left lower leg, initial encounter Status: Acute (4) Leg wound, right: Qualifiers: Encounter type: initial encounter Qualified Code(s): S81.801A - Unspecified open wound, right lower leg, initial encounter Code(s): S81.801A - Unspecified open wound, right lower leg, initial encounter Status: Acute (5) Acute exacerbation of chronic heart failure: Code(s): I50.9 - Heart failure, unspecified Status: Acute Plan Sepsis: Qualifiers: Sepsis type: sepsis due to unspecified organism Sepsis acute organ dysfunction status: with acute organ dysfunction Severe sepsis acute organ dysfunction type: acute renal failure Acute renal failure type: unspecified Severe sepsis shock status: without septic shock Qualified Code(s): A41.9 - Sepsis, unspecified organism; R65.20 - Severe sepsis without septic shock; Patient met sepsis criteria with fever, tachycardia, tachypnea and leukocytosis. Patient has sepsis due to leg wounds/cellulitis bilateral lower extremities blood cultures have been obtained and are pending. Patient was initially given cefepime in the ER but given that the wounds are venous stasis in nature will switch antibiotics to Zosyn per antibiotic stewardship guidelines. The add vancomycin as well. Patient received 2 L IV fluid in the ER. N17.9 - Acute kidney failure, unspecified Code(s): Elevated creatinine above baseline continue IV fluids at a gentle rate Follow-up BMP (2) Leg wound, left: Qualifiers: Encounter type: initial encounter Qualified Code(s): S81.802A - Unspecified open wound, left lower leg, initial encounter Code(s): S81.802A - Unspecified open wound, left lower leg, initial encounter Status: Acute (3) Leg wound, right: Qualifiers: Encounter type: initial encounter Qualified Code(s): S81.801A - Unspecified open wound, right lower leg, initial encounter Code(s): S81.801A - Unspecified open wound, right lower leg, initial encounter Status: Acute Erythema swelling, tender bilateral lower extremities, multiple ulcers with purulent discharge Antibiotics see above (4) Paroxysmal atrial fibrillation with RVR: Code(s): I48.0 - Paroxysmal atrial fibrillation Status: Acute Continue home Cardizem as well in her. Cardizem drip is on hold, rated control now Continue Xarelto po (5) Acute kidney injury: Code(s): N17.9 - Acute kidney failure, unspecified Status: Acute chronic CHF Compensated actually intervascular volume depleted. o hold home Lasix given acute kidney injury. Subjective Date/time seen: 10/06/24 13:23 Interval history: Patient feels better today, denies palpitation, chest pain shortness of breath. Patient is afebrile, blood pressure stable on the lower side. Leukocytosis improving, he will trending down slightly Exam Narrative: GENERAL: Pleasant, in no acute distress. Well-nourished. - EYES: EOMI. Anicteric. - HENT: Moist mucous membranes. - LUNGS: Clear to auscultation bilateral ly, no wheezing, rhonchi, or rales. - CARDIOVASCULAR: Irregular irregular r hythm,. No murmur. No JVD. - ABDOMEN: Soft, non-tender and non-dist ended. No palpable masses. - EXTREMITIES: No edema. Peripheral puls es 2+. Non-tender. - NEUROLOGIC: No focal neurological defi cits. CN II-XII grossly intact. - PSYCHIATRIC: Awake, Alert and oriented x 3. Appropriate mood and affect. - SKIN: Right knee, swelling, tender bi lateral lower extremities, multiple ulcers with draining purulent, malodorous fluid - LYMPH: No cervical lymphadenopathy. - LYMPH: No cervical lymphadenopathy. Objective Data Vital Signs Vital Signs: Vital Signs - 24 hr 10/05/24 14:32 10/05/24 14:58 10/05/24 15:16 Temperature 99.0 F 99.4 F Pulse Rate 164 H 148 H 115 H Respiratory Rate 27 H 24 H Blood Pressure 108/73 97/66 L 99/67 L Pulse Oximetry 100 97 Oxygen Delivery Room Air 10/05/24 16:30 10/05/24 17:19 10/05/24 17:36 Temperature 98.8 F Pulse Rate 116 H 121 H 123 H Respiratory Rate 25 H 28 H Blood Pressure 92/56 L 105/94 H 105/94 H Pulse Oximetry 98 96 Oxygen Delivery 10/05/24 18:11 10/05/24 21:37 10/05/24 23:41 Temperature 100.9 F H Pulse Rate 132 H 108 H 105 H Respiratory Rate 22 H Blood Pressure 111/78 107/72 Pulse Oximetry 96 Oxygen Delivery 10/06/24 00:07 10/06/24 01:00 10/06/24 02:00 Temperature 97.7 F Pulse Rate 97 84 107 H Respiratory Rate 21 H 20 Blood Pressure 98/61 L 105/75 Pulse Oximetry 96 98 Oxygen Delivery 10/06/24 02:41 10/06/24 07:20 10/06/24 08:00 Temperature 97.6 F Pulse Rate 103 H 82 94 Respiratory Rate 20 Blood Pressure 92/62 L Pulse Oximetry 96 Oxygen Delivery 10/06/24 09:15 10/06/24 10:00 10/06/24 11:14 Temperature 97.4 F L Pulse Rate 85 87 83 Respiratory Rate 20 Blood Pressure 98/59 L Pulse Oximetry 99 Oxygen Delivery Intake/Output Intake/Output: Intake & Output 10/03/24 10/04/24 10/05/24 10/06/24 23:59 23:59 23:59 23:59 Intake Total 2650.0 858 Balance 2650.0 858 Meds/Results Medications: Active Medications Generic Name Dose Route Start Last Admin Trade Name Freq PRN Reason Stop Dose Admin Acetaminophen 650 mg 10/05/24 22:06 10/05/24 22:30 Acetaminophen 325 Mg Tablet PO 650 mg Q4H PRN Administration Mild Pain (1-3) or Fever Hydrocodone Bitart/Acetaminophen 1 tab 10/06/24 02:38 Hydrocodone/Acetaminophen (*Crx) 5-325 Mg Tablet PO Q6H PRN Pain Rated 4-6 Cyanocobalamin 1,000 mcg 10/06/24 09:00 10/06/24 09:15 Cyanocobalamin 1,000 Mcg Tablet PO 1,000 mcg QAM YONI Administration Diltiazem HCl 120 mg 10/06/24 09:00 10/06/24 09:14 Diltiazem Hcl Cd 120 Mg Cap.24hr PO 120 mg DAILY YONI Administration Ferrous Sulfate 325 mg 10/06/24 09:00 10/06/24 09:13 Ferrous Sulfate [address] PO 325 mg BID [facility] Administration Piperacillin/Tazobactam/Dextrose 3.375 gm in 50 mls @ 100 mls/hr 10/05/24 23:00 10/06/24 12:44 Zosyn 3.375 Gm/Ns 50 Ml IVPB 100 mls/hr Q6HR [facility] Administration Vancomycin HCl 1,500 mg in 500 mls @ 250 mls/hr 10/06/24 14:00 Vancomycin 1,500 Mg/Ns 500 Ml IVPB Q18H [facility] Metoprolol Tartrate 25 mg 10/05/24 23:50 10/06/24 09:15 Metoprolol Tartrate 25 Mg Tablet PO Not Given Q12HR [facility] Midodrine 10 mg 10/06/24 09:00 10/06/24 12:43 Midodrine Hcl 10 Mg Tablet PO 10 mg TID [facility] Administration Morphine Sulfate 4 mg 10/06/24 02:38 Morphine Sulfate (*Crx) 4 Mg/Ml Inj IV PUSH Q4H PRN Pain Rated 7-10 Multivitamins/Minerals 1 tab 10/06/24 09:00 10/06/24 09:15 Multivitamins /C Lutein (Centrum Silver) Tablet *Bkc PO 1 tab DAILY [facility] Administration Ondansetron HCl 4 mg 10/06/24 02:38 Ondansetron Inj 4 Mg/2 Ml Vial IV PUSH Q4H PRN Nausea And Vomiting Potassium Chloride 10 meq 10/06/24 09:00 10/06/24 09:14 Potassium Chloride 10 Meq Er Tablet PO 10 meq DAILY [facility] Administration Rivaroxaban 10 mg 10/06/24 17:00 Rivaroxaban 10 Mg Tablet PO DAILY@1700 [facility] Radiology Results: ITS Impressions Chest X-Ray 10/05/24 16:00 IMPRESSION: No acute cardiopulmonary process. Labs Labs: Laboratory Results - last 24 hr 10/05/24 10/05/24 10/05/24 16:07 16:07 16:07 WBC 19.0 H RBC 2.97 L Hgb 9.3 L Hct 28.6 L MCV 96.3 MCH 31.3 MCHC 32.5 RDW 15.5 H Plt Count 292 MPV 9.3 Immature Gran % (Auto) 0.6 H Neut % (Auto) 92.5 H Lymph % (Auto) 3.0 L [place] % (Auto) 3.5 Eos % (Auto) 0.1 Baso % (Auto) 0.3 Lymph # (Auto) 0.57 L [place] # (Auto) 0.7 H Eos # (Auto) 0.0 Baso # (Auto) 0.1 Abs Immat Gran (auto) 0.12 H Absolute Neuts (auto) 17.5 H Absolute Nucleated RBC 0.000 Nucleated RBC % 0.0 Platelet Estimate Adequate Polychromasia 1+ Anisocytosis 1+ Schistocytes None seen PT 18.8 H INR 1.5 APTT 31.8 Sodium Cancelled 136 L Potassium Cancelled 4.4 Chloride Cancelled Carbon Dioxide Anion Gap BUN Creatinine Estim Creat Clear Calc Estimated GFR Glucose Lactic Acid Calcium Total Bilirubin AST ALT Alkaline Phosphatase Troponin I C-Reactive Protein Total Protein Albumin Procalcitonin Urine Color Urine Appearance Urine pH Ur Specific [place] Urine Protein Urine Glucose (UA) Urine Ketones Ur Blood (Man) Urine Nitrate Urine Bilirubin Urine Urobilinogen Add Ur Microanalysis Leukocyte Esterase Rfl Urine RBC Urine WBC Ur Squamous Epith Cells Urine Bacteria Urine Casts Urine Mucus Urine Yeast (Budding) 10/05/24 10/05/24 10/05/24 16:07 16:07 16:07 WBC RBC Hgb Hct MCV MCH MCHC RDW Plt Count MPV Immature Gran % (Auto) Neut % (Auto) Lymph % (Auto) [place] % (Auto) Eos % (Auto) Baso % (Auto) Lymph # (Auto) [place] # (Auto) Eos # (Auto) Baso # (Auto) Abs Immat Gran (auto) Absolute Neuts (auto) Absolute Nucleated RBC Nucleated RBC % Platelet Estimate Polychromasia Anisocytosis Schistocytes PT INR APTT Sodium Potassium Chloride 104 Carbon Dioxide Cancelled 23 Anion Gap Cancelled 9 BUN Cancelled Creatinine Estim Creat Clear Calc Estimated GFR Glucose Lactic Acid Calcium Total Bilirubin AST ALT Alkaline Phosphatase Troponin I C-Reactive Protein Total Protein Albumin Procalcitonin Urine Color Urine Appearance Urine pH Ur Specific [place] Urine Protein Urine Glucose (UA) Urine Ketones Ur Blood (Man) Urine Nitrate Urine Bilirubin Urine Urobilinogen Add Ur Microanalysis Leukocyte Esterase Rfl Urine RBC Urine WBC Ur Squamous Epith Cells Urine Bacteria Urine Casts Urine Mucus Urine Yeast (Budding) 10/05/24 10/05/24 10/05/24 16:07 16:07 16:07 WBC RBC Hgb Hct MCV MCH MCHC RDW Plt Count MPV Immature Gran % (Auto) Neut % (Auto) Lymph % (Auto) [place] % (Auto) Eos % (Auto) Baso % (Auto) Lymph # (Auto) [place] # (Auto) Eos # (Auto) Baso # (Auto) Abs Immat Gran (auto) Absolute Neuts (auto) Absolute Nucleated RBC Nucleated RBC % Platelet Estimate Polychromasia Anisocytosis Schistocytes PT INR APTT Sodium Potassium Chloride Carbon Dioxide Anion Gap BUN 24 H Creatinine Cancelled 1.10 H Estim Creat Clear Calc Cancelled 61 Estimated GFR Cancelled Glucose Lactic Acid Calcium Total Bilirubin AST ALT Alkaline Phosphatase Troponin I C-Reactive Protein Total Protein Albumin Procalcitonin Urine Color Urine Appearance Urine pH Ur Specific [place] Urine Protein Urine Glucose (UA) Urine Ketones Ur Blood (Man) Urine Nitrate Urine Bilirubin Urine Urobilinogen Add Ur Microanalysis Leukocyte Esterase Rfl Urine RBC Urine WBC Ur Squamous Epith Cells Urine Bacteria Urine Casts Urine Mucus Urine Yeast (Budding) 10/05/24 10/05/24 10/05/24 16:07 16:07 16:07 WBC RBC Hgb Hct MCV MCH MCHC RDW Plt Count MPV Immature Gran % (Auto) Neut % (Auto) Lymph % (Auto) [place] % (Auto) Eos % (Auto) Baso % (Auto) Lymph # (Auto) [place] # (Auto) Eos # (Auto) Baso # (Auto) Abs Immat Gran (auto) Absolute Neuts (auto) Absolute Nucleated RBC Nucleated RBC % Platelet Estimate Polychromasia Anisocytosis Schistocytes PT INR APTT Sodium Potassium Chloride Carbon Dioxide Anion Gap BUN Creatinine Estim Creat Clear Calc Estimated GFR 50 L Glucose Cancelled 87 Lactic Acid 2.0 Calcium Cancelled 9.0 Total Bilirubin Cancelled AST ALT Alkaline Phosphatase Troponin I C-Reactive Protein Total Protein Albumin Procalcitonin Urine Color Urine Appearance Urine pH Ur Specific [place] Urine Protein Urine Glucose (UA) Urine Ketones Ur Blood (Man) Urine Nitrate Urine Bilirubin Urine Urobilinogen Add Ur Microanalysis Leukocyte Esterase Rfl Urine RBC Urine WBC Ur Squamous Epith Cells Urine Bacteria Urine Casts Urine Mucus Urine Yeast (Budding) 10/05/24 10/05/24 10/05/24 16:07 16:07 16:07 WBC RBC Hgb Hct MCV MCH MCHC RDW Plt Count MPV Immature Gran % (Auto) Neut % (Auto) Lymph % (Auto) [place] % (Auto) Eos % (Auto) Baso % (Auto) Lymph # (Auto) [place] # (Auto) Eos # (Auto) Baso # (Auto) Abs Immat Gran (auto) Absolute Neuts (auto) Absolute Nucleated RBC Nucleated RBC % Platelet Estimate Polychromasia Anisocytosis Schistocytes PT INR APTT Sodium Potassium Chloride Carbon Dioxide Anion Gap BUN Creatinine Estim Creat Clear Calc Estimated GFR Glucose Lactic Acid Calcium Total Bilirubin 2.9 H AST Cancelled 32 ALT Cancelled 15 Alkaline Phosphatase Cancelled Troponin I C-Reactive Protein Total Protein Albumin Procalcitonin Urine Color Urine Appearance Urine pH Ur Specific [place] Urine Protein Urine Glucose (UA) Urine Ketones Ur Blood (Man) Urine Nitrate Urine Bilirubin Urine Urobilinogen Add Ur Microanalysis Leukocyte Esterase Rfl Urine RBC Urine WBC Ur Squamous Epith Cells Urine Bacteria Urine Casts Urine Mucus Urine Yeast (Budding) 10/05/24 10/05/24 10/05/24 16:07 16:07 16:07 WBC RBC Hgb Hct MCV MCH MCHC RDW Plt Count MPV Immature Gran % (Auto) Neut % (Auto) Lymph % (Auto) [place] % (Auto) Eos % (Auto) Baso % (Auto) Lymph # (Auto) [place] # (Auto) Eos # (Auto) Baso # (Auto) Abs Immat Gran (auto) Absolute Neuts (auto) Absolute Nucleated RBC Nucleated RBC % Platelet Estimate Polychromasia Anisocytosis Schistocytes PT INR APTT Sodium Potassium Chloride Carbon Dioxide Anion Gap BUN Creatinine Estim Creat Clear Calc Estimated GFR Glucose Lactic Acid Calcium Total Bilirubin AST ALT Alkaline Phosphatase 116 Troponin I 0.035 H* C-Reactive Protein Cancelled > 9.0 H Total Protein Cancelled 8.0 Albumin Cancelled Procalcitonin Urine Color Urine Appearance Urine pH Ur Specific [place] Urine Protein Urine Glucose (UA) Urine Ketones Ur Blood (Man) Urine Nitrate Urine Bilirubin Urine Urobilinogen Add Ur Microanalysis Leukocyte Esterase Rfl Urine RBC Urine WBC Ur Squamous Epith Cells Urine Bacteria Urine Casts Urine Mucus Urine Yeast (Budding) 10/05/24 10/05/24 10/05/24 16:07 19:34 23:46 WBC RBC Hgb Hct MCV MCH MCHC RDW Plt Count MPV Immature Gran % (Auto) Neut % (Auto) Lymph % (Auto) [place] % (Auto) Eos % (Auto) Baso % (Auto) Lymph # (Auto) [place] # (Auto) Eos # (Auto) Baso # (Auto) Abs Immat Gran (auto) Absolute Neuts (auto) Absolute Nucleated RBC Nucleated RBC % Platelet Estimate Polychromasia Anisocytosis Schistocytes PT INR APTT Sodium Potassium Chloride Carbon Dioxide Anion Gap BUN Creatinine Estim Creat Clear Calc Estimated GFR Glucose Lactic Acid 1.5 Calcium Total Bilirubin AST ALT Alkaline Phosphatase Troponin I 0.041 H* C-Reactive Protein Total Protein Albumin 3.5 Procalcitonin 1.8 Urine Color Dark yellow Urine Appearance Cloudy H Urine pH 5.0 Ur Specific [place] 1.026 Urine Protein 1+ H Urine Glucose (UA) Negative Urine Ketones Trace H Ur Blood (Man) Negative Urine Nitrate Negative Urine Bilirubin 1+ H Urine Urobilinogen 1.0 Add Ur Microanalysis Reviewed Leukocyte Esterase Rfl 1+ H Urine RBC 6-10 H Urine WBC 6-10 H Ur Squamous Epith Cells Few Urine Bacteria None seen Urine Casts 3-5 Urine Mucus Present Urine Yeast (Budding) Present H 10/06/24 10/06/24 04:55 05:00 WBC 11.8 H RBC 2.59 L Hgb 8.6 L Hct 25.3 L MCV 97.7 MCH 33.2 D MCHC 34.0 RDW 15.6 H Plt Count 205 MPV 10.7 H Immature Gran % (Auto) 0.6 H Neut % (Auto) 83.8 H Lymph % (Auto) 7.9 L [place] % (Auto) 5.6 Eos % (Auto) 1.6 Baso % (Auto) 0.5 Lymph # (Auto) 0.93 [place] # (Auto) 0.7 H Eos # (Auto) 0.2 Baso # (Auto) 0.1 Abs Immat Gran (auto) 0.07 H Absolute Neuts (auto) 9.9 H Absolute Nucleated RBC 0.000 Nucleated RBC % 0.0 Platelet Estimate Polychromasia Anisocytosis Schistocytes PT INR APTT Sodium 132 L Potassium 4.1 Chloride 105 Carbon Dioxide 21 L Anion Gap 6 BUN 25 H Creatinine 1.10 H Estim Creat Clear Calc 62 Estimated GFR 50 L Glucose 70 Lactic Acid Calcium 8.4 Total Bilirubin AST ALT Alkaline Phosphatase Troponin I C-Reactive Protein Total Protein Albumin Procalcitonin Urine Color Urine Appearance Urine pH Ur Specific [place] Urine Protein Urine Glucose (UA) Urine Ketones Ur Blood (Man) Urine Nitrate Urine Bilirubin Urine Urobilinogen Add Ur Microanalysis Leukocyte Esterase Rfl Urine RBC Urine WBC Ur Squamous Epith Cells Urine Bacteria Urine Casts Urine Mucus Urine Yeast (Budding)
[2024-10-06] MEDS: VANCOMYCIN 1,500 MG/NS 500 ML 1,500 MG/500 ML BAG 250 MG IVPB (14:54)
[2024-10-06] MEDS: HYDROcodone/acetaminophen (*CRX) 5-325 MG TABLET 1 TAB PO (17:26)
[2024-10-06] MEDS: RIVAROXABAN 10 MG TABLET PO (17:27)
[2024-10-07] VITALS (18 sets, daily range): BP systolic 87–118; BP diastolic 60–71; PULSE 82–104; RESP 16–22; TEMP 36.3–37.1; O2SAT 95–100
[2024-10-07] MEDS: PIPERACILLN/TAZ 3.375GM/NS50ML 3.375 GM/50 ML BAG IVPB ×2 (00:13→05:30)
[2024-10-07 07:24] LABS: Estimated CRCL calculation 54 ml/min; Estimated Glomerular Filt Rate 41
--- NOTE | 2024-10-07 09:27 | P.PNIM_ITS ---
Progress Note: A&P Assessment and Plan (1) Paroxysmal atrial fibrillation with RVR: Code(s): I48.0 - Paroxysmal atrial fibrillation Status: Acute (2) Sepsis: Qualifiers: Acute renal failure type: unspecified Sepsis acute organ dysfunction status: with acute organ dysfunction Sepsis type: sepsis due to unspecified organism Severe sepsis acute organ dysfunction type: acute renal failure Severe sepsis shock status: without septic shock Qualified Code(s): A41.9 - Sepsis, unspecified organism; R65.20 - Severe sepsis without septic shock; N17.9 - Acute kidney failure, unspecified Code(s): A41.9 - Sepsis, unspecified organism Status: Acute (3) Leg wound, left: Qualifiers: Encounter type: initial encounter Qualified Code(s): S81.802A - Unspecified open wound, left lower leg, initial encounter Code(s): S81.802A - Unspecified open wound, left lower leg, initial encounter Status: Acute (4) Leg wound, right: Qualifiers: Encounter type: initial encounter Qualified Code(s): S81.801A - Unspecified open wound, right lower leg, initial encounter Code(s): S81.801A - Unspecified open wound, right lower leg, initial encounter Status: Acute (5) Acute exacerbation of chronic heart failure: Code(s): I50.9 - Heart failure, unspecified Status: Acute Plan Sepsis: Qualifiers: Sepsis type: sepsis due to unspecified organism Sepsis acute organ dysfunction status: with acute organ dysfunction Severe sepsis acute organ dysfunction type: acute renal failure Acute renal failure type: unspecified Severe sepsis shock status: without septic shock Qualified Code(s): A41.9 - Sepsis, unspecified organism; R65.20 - Severe sepsis without septic shock; Patient met sepsis criteria with fever, tachycardia, tachypnea and leukocytosis. Patient has sepsis due to leg wounds/cellulitis bilateral lower extremities blood cultures have been obtained and are pending. Received cefepime and now patient is on vancomycin and Zosyn Will change to vancomycin cefepime and Flagyl to avoid nephrotoxicity Blood pressure still low Start normal saline IV 500 bolus and 100 mL/hour Leg wound, left: Qualifiers: Encounter type: initial encounter Qualified Code(s): S81.802A - Unspecified open wound, left lower leg, initial encounter Code(s): S81.802A - Unspecified open wound, left lower leg, initial encounter Status: Acute Leg wound, right: Qualifiers: Encounter type: initial encounter Qualified Code(s): S81.801A - Unspecified open wound, right lower leg, initial encounter Code(s): S81.801A - Unspecified open wound, right lower leg, initial encounter Status: Acute Erythema swelling, tender bilateral lower extremities, multiple ulcers with purulent discharge Antibiotics see above Paroxysmal atrial fibrillation with RVR: Code(s): I48.0 - Paroxysmal atrial fibrillation Status: Acute hold home Cardizem as well, BP is low Continue Xarelto po Acute kidney injury: Code(s): N17.9 - Acute kidney failure, unspecified Status: Acute N17.9 - Acute kidney failure, unspecified Code(s): Elevated creatinine above baseline continue IV fluids at a gentle rate Follow-up BMP chronic CHF Compensated actually intervascular volume depleted. o hold home Lasix given acute kidney injury. Subjective Date/time seen: 10/07/24 09:27 Interval history: Patient feels better today, patient has a general weakness, feeling better, denies palpitation, chest pain shortness of breath. Patient is afebrile, blood pressure stable on the lower side. Leukocytosis has resolved Exam Narrative: GENERAL: Pleasant, in no acute distress. Well-nourished. - EYES: EOMI. Anicteric. - HENT: Moist mucous membranes. - LUNGS: Clear to auscultation bilateral ly, no wheezing, rhonchi, or rales. - CARDIOVASCULAR: Irregular irregular r hythm,. No murmur. No JVD. - ABDOMEN: Soft, non-tender and non-dist ended. No palpable masses. - EXTREMITIES: No edema. Peripheral puls es 2+. Non-tender. - NEUROLOGIC: No focal neurological defi cits. CN II-XII grossly intact. - PSYCHIATRIC: Awake, Alert and oriented x 3. Appropriate mood and affect. - SKIN: Right knee, swelling, tender bi lateral lower extremities, multiple ulcers with draining purulent, malodorous fluid - LYMPH: No cervical lymphadenopathy. - LYMPH: No cervical lymphadenopathy. Objective Data Vital Signs Vital Signs: Vital Signs - 24 hr 10/06/24 10:00 10/06/24 11:14 10/06/24 12:00 Temperature 97.4 F L Pulse Rate 87 83 93 Respiratory Rate 20 Blood Pressure 98/59 L Pulse Oximetry 99 Oxygen Delivery 10/06/24 14:00 10/06/24 15:27 10/06/24 16:00 Temperature 97.2 F L Pulse Rate 75 84 92 Respiratory Rate 16 Blood Pressure 97/65 L Pulse Oximetry 98 Oxygen Delivery 10/06/24 18:00 10/06/24 20:00 10/06/24 20:51 Temperature 98.1 F Pulse Rate 88 89 88 Respiratory Rate 18 Blood Pressure 91/57 L Pulse Oximetry 96 Oxygen Delivery 10/06/24 22:00 10/07/24 00:00 10/07/24 00:11 Temperature 98.3 F Pulse Rate 86 88 94 Respiratory Rate 18 Blood Pressure 93/63 L Pulse Oximetry 95 Oxygen Delivery 10/07/24 02:00 10/07/24 04:00 10/07/24 04:00 Temperature Pulse Rate 88 96 Respiratory Rate Blood Pressure Pulse Oximetry Oxygen Delivery Room Air 10/07/24 05:29 10/07/24 06:00 10/07/24 07:57 Temperature 98.7 F 97.7 F Pulse Rate 86 83 97 Respiratory Rate 18 20 Blood Pressure 93/62 L 87/64 L Pulse Oximetry 95 100 Oxygen Delivery Intake/Output Intake/Output: Intake & Output 10/04/24 10/05/24 10/06/24 10/07/24 23:59 23:59 23:59 23:59 Intake Total 2650.0 1938 960 Output Total 350 300 Balance 2650.0 1588 660 Meds/Results Medications: Active Medications Generic Name Dose Route Start Last Admin Trade Name Freq PRN Reason Stop Dose Admin Acetaminophen 650 mg 10/05/24 22:06 10/05/24 22:30 Acetaminophen 325 Mg Tablet PO 650 mg Q4H PRN Administration Mild Pain (1-3) or Fever Hydrocodone Bitart/Acetaminophen 1 tab 10/06/24 02:38 10/06/24 17:26 Hydrocodone/Acetaminophen (*Crx) 5-325 Mg Tablet PO 1 tab Q6H PRN Administration Pain Rated 4-6 Cyanocobalamin 1,000 mcg 10/06/24 09:00 10/06/24 09:15 Cyanocobalamin 1,000 Mcg Tablet PO 1,000 mcg QAM YONI Administration Diltiazem HCl 120 mg 10/06/24 09:00 12/10/24 09:14 Diltiazem Hcl Cd 120 Mg Cap.24hr PO 120 mg DAILY YONI Administration Ferrous Sulfate 325 mg 10/06/24 09:00 10/06/24 17:27 Ferrous Sulfate [address] PO 325 mg BID YONI Administration Piperacillin/Tazobactam/Dextrose 3.375 gm in 50 mls @ 100 mls/hr 10/05/24 23:00 10/07/24 05:30 Zosyn 3.375 Gm/Ns 50 Ml IVPB 100 mls/hr Q6HR YONI Administration Vancomycin HCl 1,500 mg in 500 mls @ 250 mls/hr 10/06/24 14:00 10/06/24 16:54 Vancomycin 1,500 Mg/Ns 500 Ml IVPB Infused Q18H YONI Infusion Metoprolol Tartrate 25 mg 10/05/24 23:50 10/06/24 21:38 Metoprolol Tartrate 25 Mg Tablet PO Not Given Q12HR [facility] Midodrine 10 mg 10/06/24 09:00 10/06/24 17:27 Midodrine Hcl 10 Mg Tablet PO 10 mg TID [facility] Administration Morphine Sulfate 4 mg 10/06/24 02:38 Morphine Sulfate (*Crx) 4 Mg/Ml Inj IV PUSH Q4H PRN Pain Rated 7-10 Multivitamins/Minerals 1 tab 10/06/24 09:00 10/06/24 09:15 Multivitamins /C Lutein (Centrum Silver) Tablet *Bkc PO 1 tab DAILY [facility] Administration Ondansetron HCl 4 mg 10/06/24 02:38 Ondansetron Inj 4 Mg/2 Ml Vial IV PUSH Q4H PRN Nausea And Vomiting Potassium Chloride 10 meq 10/06/24 09:00 10/06/24 09:14 Potassium Chloride 10 Meq Er Tablet PO 10 meq DAILY YONI Administration Rivaroxaban 10 mg 10/06/24 17:00 10/06/24 17:27 Rivaroxaban 10 Mg Tablet PO 10 mg DAILY@1700 YONI Administration Radiology Results: ITS Impressions Chest X-Ray 10/05/24 16:00 IMPRESSION: No acute cardiopulmonary process. Labs Labs: Laboratory Results - last 24 hr 10/07/24 06:45 Creatinine 1.30 H Estim Creat Clear Calc 54 Estimated GFR 41 L
[2024-10-07] MEDS: FERROUS SULFATE 325 MG TABLET DR PO ×2 (09:35→17:38)
[2024-10-07] MEDS: POTASSIUM CHLORIDE 10 MEQ ER TABLET PO (09:35)
[2024-10-07] MEDS: CYANOCOBALAMIN 1,000 MCG TABLET 1000 MCG PO (09:35)
[2024-10-07] MEDS: MULTIVITAMINS /C LUTEIN (CENTRUM SILVER) TABLET *BKC 1 TAB PO (09:35)
[2024-10-07] MEDS: MIDODRINE HCL 10 MG TABLET PO ×3 (09:35→17:38)
[2024-10-07 09:36] LABS: Vancomycin Trough 21.1 ug/mL (10.0-20.0)
[2024-10-07 09:56] LABS: Basophils Absolute Auto 0.1 K/mm3 (0.0-0.1); Basophils Percent Auto 0.8 % (0.2-1.2); Eosinophils Absolute Auto 0.5 K/mm3 (0-0.3); Eosinophils Percent Auto 5.9 % (0-4.4); Hematocrit 29.6 % (37.0-47.0); Hemoglobin 9.6 g/dL (12.0-15.0); Immature Granulocyte Absolute 0.12 K/mm3 (0.00-0.031); Immature Granulocyte Percent A 1.5 % (0-0.5); Lymphocytes Absolute Auto 1.12 K/mm3 (0.9-3.2); Lymphocytes Percent Auto 13.6 % (18.3-44.2); Mean Corpuscular HGB Conc 32.4 g/dl (32-36); Mean Corpuscular Hemoglobin 31.3 pg (26-34); Mean Corpuscular Volume 96.4 fl (80-100); Mean Platelet Volume 9.3 fl (7.4-10.4); Monocytes Absolute Auto 0.7 K/mm3 (0.1-0.6); Monocytes Percent Auto 8.7 % (2.6-8.5); Neutrophils Absolute Auto 5.7 K/mm3 (1.3-6.7); Neutrophils Percent Auto 69.5 % (45.5-73.1); Platelet Count Result 301 k/mm3 (150-375); Red Blood Count 3.07 M/mm3 (4.2-5.4); Red Cell Distribution Width 15.3 % (11.5-14.5); White Blood Count 8.3 K/mm3 (4.5-10.0)
[2024-10-07] MEDS: SODIUM CHLORIDE 0.9% IV 500 ML IV CONT (09:58)
[2024-10-07 10:07] LABS: Anion Gap 4 mmol/L (4-12); Blood Urea Nitrogen 29 mg/dL (7-17); Calcium 8.5 mg/dL (8.4-10.2); Carbon Dioxide 23 mmol/L (22-30); Chloride 106 mmol/L (98-107); Estimated CRCL calculation 59 ml/min; Estimated Glomerular Filt Rate 45; Glucose 122 mg/dL (65-110); Sodium 133 mmol/L (137-145)
--- OUTSIDE RECORDS SUMMARY | 2024-10-07 10:33 | XMS_ITS | Continuity of Care Document ---
Author Organization [facility] Address [address] [place] [id number]- Encounter 07/30/24 - 08/21/24 [facility] [address] [place] [id number]- Discharge Disposition: Home or Self Care Attending Physician: Leanne Stacy Admitting Physician: Leanne Stacy Allergies, Adverse Reactions, Alerts Substance Criticality Severity Reaction Reaction Severity Status codeine Unable to assess criticality Medium Nausea and vomiting Active diazePAM Unable to assess criticality Medium Nausea and vomiting Active Assessment and Plan Extracted from: Title:Clinical Document Author:Grant Zhang NP Date:08/21/24 [facility] PROGRESS NOTE Pili Bernard is a 63 YO female at [facility] Residential facility for rehabilitation. Subjective: Interval History: I am seeing the patient today for a skilled encounter. she is lying comfortably in her bed. No acute concerns at this time Nursing staff with no concerns about the patient Review of Systems: A 14 point comprehensive review of systems was negative except what is documented in interval history above. Objective: Exam: Vital Signs: Vital signs were reviewed in the facility EMR and were unremarkable. General: Well developed, well nourished, in no distress - pleasant, obese Skin: Normal appearance, normal turgor, no rashes - Shekhar wraps on the lower extremities. HEENT: Normocephalic, atraumatic, no flaring Eyes: nonicteric, intact extra ocular movement, PERRL Neck: normal, supple, no lymphadenopathy Heart: Iregularly irregular rhythm, normal rate, S1, S2 normal, no murmur, click, rub or gallop Lungs: clear to auscultation, normal respirations, normal precautions Abdominal: soft, non-tender; bowel sounds normal; no masses, no organomegaly Extremities: no deformities, joint mobility appears intact, no clubbing Neuro: Non-focal, CN intact, sensory and motor intact Psychological: alert and oriented X3, appropriate mood and affect, Intact judgement and memory Lab Results: The most recent lab results were reviewed and were stable. Imaging: The most recent imaging studies were reviewed and no new findings were noted Assessment/Plan: Generalized weakness and deconditioning Had a nearly 2 week hospitalization for septic shock and cellulitis Receiving residential care and physical therapy rehabilitation 08/21 - improving Chronic atrial fibrillation anticoagulated with Xarelto rate controlled with diltiazem -Stable anemia patient reports she had have a blood transfusion during hospitalization and is to follow-up with Hematology monitor labs 08/21 - Hemoglobin in the 80s on numerous rechecks hypertension Monitor blood pressures continue current regimen - well controlled obesity educated on weight loss strategies and encouraged to lose weight Disposition: 08/21: Patient will be discharging to home today. She is comfortable with this plan and looking for to going home. She understands to call her PCP and follow-up in their office in the next 1-2 weeks. Understands to follow-up with Hematology. This note was dictated using [employer] fluency dictation system and there may be errors in loan approver. ??Despite proof reading the note, there may be mistakes and I apologize for those. By: Grant Zhang PA-C Extracted from: Title:Clinical Document Author:Cari Castro Date:08/18/24 [facility] THERAP[facility] SENIOR LIVING PROGRESS NOTE Pili Bernard is a 63 YO F at [facility] Residential facility for rehabilitation. Subjective: Interval History: Patient is being seen today for a routine skilled visit. She is sitting up in bed at the time of exam; denies any acute complaints currently. Reports car training today went well and she is excited to DC later this week. Verbalizes concern about the little bruising she noted on her bilateral arms, and reports her gums were bleeding while brushing teeth this morning. Review of Systems: A 14 point comprehensive review of systems was negative except what is documented in interval history above. Objective: Exam: Vital Signs: Vital signs were reviewed in the facility EMR and were unremarkable. General: Well developed, well nourished, in no distress, pleasant, morbidly obese Skin: Normal appearance, normal turgor, no rashes, shekhar wraps in place to bilateral lower extremities, petechiae noted to right forearm - no other sign of bruising/bleeding HEENT: Normocephalic, atraumatic, no flaring Eyes: nonicteric, intact extra ocular movement, PERRL Neck: normal, supple, no lymphadenopathy Heart: Iregularly irregular rhythm, normal rate, S1, S2 normal, no murmur, click, rub or gallop Lungs: clear to auscultation, normal respirations, normal precautions Abdominal: soft, non-tender; bowel sounds normal; no masses, no organomegaly Extremities: no deformities, joint mobility appears intact, no clubbing, shekhar wraps in place to bilateral lower extremities Neuro: Non-focal, CN intact, sensory and motor intact Psychological: alert and oriented X3, appropriate mood and affect, Intact judgement and memory Lab Results: The most recent lab results were reviewed and were stable. Will check PT/INR and CBC to reassure patient. Imaging: The most recent imaging studies were reviewed and no new findings were noted Assessment/Plan: Generalized weakness and physical deconditioning PT/OT to regain strength, balance, mobility supportive care Chronic atrial fibrillation Xarelto for AC - will check PT/INR and CBC to ensure this is stable, to reassure patient Diltiazem for rate control monitor Anemia s/p blood transfusion during most recent hospitalization follow up with Hematology as outpatient monitor CBC periodically CBC to be drawn in AM HTN/Hypotension continue current regimen monitor VS while at SNF 08/18 - stable Obesity educated on weight loss strategies and encouraged to lose weight By: DOMINIQUE Buenrostro Extracted from: Title:Clinical Document Author:Azra Zavala Date:08/18/24 2nd level appeal; transfers sba mod i bed mob mod i use of bed rail walking 178 ft ind crutches stairs cga dressing ind LB sba bathing ind LB sba toileting sba LCD 08-20 DC 08-21 Extracted from: Title:Clinical Document Author:Gallito Finley Date:08/18/24 PHYSIATRY (PM&R) PROGRESS NO TE ENVIRONMENTAL RESTORATION PLANNER: DOMINIQUE Jackman PLACE OF SERVICE: [facility] PATIENT NAME: Pili Bernard DATE OF : 1960 DATE OF SERVICE: 08/18/2024 CHIEF COMPLAINT: Mobility and ADL deficits secondary to weakness, fatigue, AFib, lymphedema. HISTORY OF PRESENT ILLNESS UPON ADMISSION: Patient is a 63 y/o female. Relevant PMH includes AFib, lymphedema, hyponatremia, cervical cancer, who was admitted to [facility] for residential and rehabilitation secondary to deficits in mobility and ADL? s. Patient presented and seen in the ED for AFib. Patient? s rate was controlled with diltiazem. The HPI was obtained through chart review and my patient visit. PAST MEDICAL HISTORY: AFib, lymphedema, hyponatremia, cervical cancer. SUBJECTIVE: The patient? s plan and progress was discussed with nursing staff and therapy. Patient reports she has gotten stronger since arriving at the facility. Patient reports she is able to walk further with her crutches. Patient reports her goal is to go home by the end of the month. Patient currently denies any chest pain, pressure, tightness, heaviness, shortness of breath, abdominal pain, nausea, vomiting, fever or chills. Patient denies pain at this time. MEDICATIONS: As per MAR/EMR. LABS/IMAGING: Reviewed in EMR. CURRENT FUNCTIONAL STATUS: Transfer SBA, mod independence. Bed mobility, mod independence with use of bed rails. Walking 178 feet independently with crutches. Stairs, CGA. Dressing upper body independent, lower body SBA, bathing upper body independent, lower body SBA, toileting SBA. PFSH/ROS: Unchanged from initial encounter unless otherwise noted in Subjective above. Otherwise, 10 systems were reviewed and were negative. PHYSICAL EXAMINATION: Vitals: Reviewed at time of exam. Constitutional: Patient alert and oriented, exhibits no signs and symptoms of distress or discomfort. Patient in her room, lying in bed at this time. HEENT: Eyes: no scleral icterus, normal conjunctiva and lids with no discharge. Ears: normal appearance, no scars, lesions, or masses. Neck: no neck masses, trachea midline. Cardiac: BLE severe lymphedema. Respiratory: Normal respiratory effort; no accessory muscle use. GI: Abdomen soft, nondistended, nontender to palpation. : No Lynch present, no suprapubic tenderness. Skin: No skin lesions or rashes noted in b/l UE or LE. Severe BLE lymphedema, noted BLE excoriation. Patient is being followed by an in-house wound nurse. Psych: A&Ox3 with good mood and appropriate affect. Neuro: Able to follow one/two step directions. Speech is clear and without aphasia. No facial droop. Good coordination in all extremities. Normal reflexes and no focal sensation loss to light touch. Musculoskeletal Exam: Inspection: No asymmetry, masses, or effusions of b/l UE and LE. Tone: Normal tone in b/l UE and LE. Stability: Joints are stable with no joint laxity or subluxation. Palpation: No tenderness to palpation of b/l UE and LE. Range of Motion: Functional ROM in b/l UE, functional ROM in b/l LE. Muscle Strength: Symmetric anti-gravity strength in b/l UE and LE. BLE 4/5. Gait: Not observed. ASSESSMENT & PLAN: 1) ADL and mobility dysfunction secondary to weakness, fatigue, AFib, lymphedema. 2) The patient will continue with their skilled therapy services. Services may include PT/OT/INSURANCE CONSULTANT with the goal of increasing strength, endurance, self-care abilities, neuromotor training, and functional mobility training. 3) Deconditioning/Gait Instability: Patient is high risk for functional impairment without therapy and adequate pain control. Anticoagulant, Xarelto. 4) Chronic AFib: Continue current medication regimen. Patient remains stable at this time. 5) Anemia: Stable at this time. No active signs and symptoms of bleeding noted. 6) Severe BLE lymphedema: BLE SHEKHAR wraps on at this time. Patient remains stable. 7) Pain: Patient? s pain is currently controlled. Continue current pain medications. 8) Bowel & Bladder Management: Will continue to monitor in conjunction with nursing team; will discuss any issues identified with internal medicine. 9) Medical comorbidities continue to be managed by primary care team. Patient will continue medications per primary care team. Labs, previous imaging, relevant previous records, and therapy notes were reviewed. Patient? s rehab and medical needs were discussed with nursing staff and therapy. Discharge planning/Disposition: Will continue discussion with the therapy team, family, and social media specialist. Will further determine as rehab progresses. Will follow the patient throughout rehabilitation course to manage rehabilitation and any barriers to therapies. Patient would like to be followed by [facility] upon discharge. Patient's goal is to return home to be able to care for herself and her dog independently. Patient may be possibly discharged home by the end of the week. I spoke with the patient on 08/06/2024, regarding CCM services. Patient verbalized understanding of CCM services and a potential patient responsibility including copay was communicated. Patient understands that only one health healthcare market consultant can furnish and bill CCM services during a calendar month and accepted terms and conditions and consented to enroll in the program. Please do not hesitate to contact me with any questions. DOMINIQUE Jackman Please note this dictation was completed with voice recording software. Unanticipated grammatical and interpretive errors may have been inadvertently transcribed. Please contact the copy writer for any clarification. Extracted from: Title:Clinical Document Author:Cari Castro Date:08/14/24 [facility] N AND THERAPY SENIOR LIVING PROGRESS NOTE Pili Bernard is a 63 YO F at [facility] Residential facility for rehabilitation. Subjective: Interval History: Patient is being seen today for a routine skilled visit. She is sitting up to the side of the bed at the time of exam; denies any acute complaints currently. Reports that she is in a second level appeal with her insurance. Review of Systems: A 14 point comprehensive review of systems was negative except what is documented in interval history above. Objective: Exam: Vital Signs: Vital signs were reviewed in the facility EMR and were unremarkable. General: Well developed, well nourished, in no distress, pleasant, morbidly obese Skin: Normal appearance, normal turgor, no rashes, shekhar wraps in place to bilateral lower extremities. HEENT: Normocephalic, atraumatic, no flaring Eyes: nonicteric, intact extra ocular movement, PERRL Neck: normal, supple, no lymphadenopathy Heart: Iregularly irregular rhythm, normal rate, S1, S2 normal, no murmur, click, rub or gallop Lungs: clear to auscultation, normal respirations, normal precautions Abdominal: soft, non-tender; bowel sounds normal; no masses, no organomegaly Extremities: no deformities, joint mobility appears intact, no clubbing, shekhar wraps in place to bilateral lower extremities Neuro: Non-focal, CN intact, sensory and motor intact Psychological: alert and oriented X3, appropriate mood and affect, Intact judgement and memory Lab Results: The most recent lab results were reviewed and were stable. Imaging: The most recent imaging studies were reviewed and no new findings were noted Assessment/Plan: Generalized weakness and physical deconditioning PT/OT to regain strength, balance, mobility supportive care Chronic atrial fibrillation Xarelto for AC Diltiazem for rate control monitor Anemia s/p blood transfusion during most recent hospitalization follow up with Hematology as outpatient monitor CBC periodically HTN/Hypotension continue current regimen monitor VS while at SNF Obesity educated on weight loss strategies and encouraged to lose weight By: DOMINIQUE Buenrostro Extracted from: Title:Clinical Document Author:Gallito Finley Date:08/13/24 PHYSIATRY (PM&R) PROGRESS NO TE ENVIRONMENTAL RESTORATION PLANNER: DOMINIQUE Jackman PLACE OF SERVICE: [facility] PATIENT NAME: Pili Bernard DATE OF : 1960 DATE OF SERVICE: 08/13/2024 CHIEF COMPLAINT: Mobility and ADL deficits secondary to weakness, fatigue, AFib, lymphedema. HISTORY OF PRESENT ILLNESS UPON ADMISSION: Patient is a 63 y/o female. Relevant PMH includes AFib, lymphedema, hyponatremia, cervical cancer, who was admitted to [facility] for residential and rehabilitation secondary to deficits in mobility and ADL? s. Patient presented and seen in the ED for AFib. Patient? s rate was controlled with diltiazem. The HPI was obtained through chart review and my patient visit. PAST MEDICAL HISTORY: AFib, lymphedema, hyponatremia, cervical cancer. SUBJECTIVE: The patient? s plan and progress was discussed with nursing staff and therapy. Patient reports she has been participating in therapy. Patient reports her goal is to go home and be able to care for herself independently. Patient reports she does have a dog to care for as well. Patient currently denies any chest pain, pressure, tightness, heaviness, nausea, vomiting, fever or chills. Patient denies pain at this time. MEDICATIONS: As per MAR/EMR. LABS/IMAGING: Reviewed in EMR. CURRENT FUNCTIONAL STATUS: Transfer SBA, bed mobility SBA. Gait 60 feet, SBA with crutches. Balance, fair-. Safety, G-. UB dressing independent, LB dressing CGA, bathing upper body min assist, lower body max assist, toileting CGA. Safety, fair-/G. Self-feeding, independent. PFSH/ROS: Unchanged from initial encounter unless otherwise noted in Subjective above. Otherwise, 10 systems were reviewed and were negative. PHYSICAL EXAMINATION: Vitals: Reviewed at time of exam. Constitutional: Patient is alert and oriented, exhibits no signs and symptoms of distress or discomfort. Patient lying in bed at this time. CRC practitioner did wrap patient leg, severe BLE lymphedema. HEENT: Eyes: no scleral icterus, normal conjunctiva and lids with no discharge. Ears: normal appearance, no scars, lesions, or masses. Neck: no neck masses, trachea midline. Cardiac: BLE severe lymphedema. Respiratory: Normal respiratory effort; no accessory muscle use. GI: Abdomen soft, nondistended, nontender to palpation. : No Lynch present, no suprapubic tenderness. Skin: No skin lesions or rashes noted in b/l UE or LE. Severe BLE lymphedema, noted BLE excoriation. Patient is being followed by an in-house wound nurse. Psych: A&Ox3 with good mood and appropriate affect. Neuro: Able to follow one/two step directions. Speech is clear and without aphasia. No facial droop. Good coordination in all extremities. Normal reflexes and no focal sensation loss to light touch. Musculoskeletal Exam: Inspection: No asymmetry, masses, or effusions of b/l UE and LE. Tone: Normal tone in b/l UE and LE. Stability: Joints are stable with no joint laxity or subluxation. Palpation: No tenderness to palpation of b/l UE and LE. Range of Motion: Functional ROM in b/l UE, functional ROM in b/l LE. Muscle Strength: Symmetric anti-gravity strength in b/l UE and LE. BLE 4/5. Gait: Not observed. ASSESSMENT & PLAN: 1) ADL and mobility dysfunction secondary to weakness, fatigue, AFib, lymphedema. 2) The patient will continue with their skilled therapy services. Services may include PT/OT/INSURANCE CONSULTANT with the goal of increasing strength, endurance, self-care abilities, neuromotor training, and functional mobility training. 3) Deconditioning/Gait Instability: Patient is high risk for functional impairment without therapy and adequate pain control. Anticoagulant, Xarelto. 4) Chronic Afib: Continue current medication regimen. Patient remains stable at this time. 5) Anemia: Stable at this time. No active signs and symptoms of bleeding noted. 6) Severe BLE lymphedema: BLE SHEKHAR wraps on at this time. Patient remains stable. 7) Pain: Patient? s pain is currently controlled. Continue current pain medications. 8) Bowel & Bladder Management: Will continue to monitor in conjunction with nursing team; will discuss any issues identified with internal medicine. 9) Medical comorbidities continue to be managed by primary care team. Patient will continue medications per primary care team. Labs, previous imaging, relevant previous records, and therapy notes were reviewed. Patient? s rehab and medical needs were discussed with nursing staff and therapy. Discharge planning/Disposition: Will continue discussion with the therapy team, family, and social media specialist. Will further determine as rehab progresses. Will follow the patient throughout rehabilitation course to manage rehabilitation and any barriers to therapies. Patient would like to be followed by [facility] upon discharge. Patient's goal is to return home to be able to care for herself and her dog independently. I spoke with the patient on 08/06/2024, regarding CCM services. Patient verbalized understanding of CCM services and a potential patient responsibility including copay was communicated. Patient understands that only one health healthcare market consultant can furnish and bill CCM services during a calendar month and accepted terms and conditions and consented to enroll in the program. Please do not hesitate to contact me with any questions. DOMINIQUE Jackman Please note this dictation was completed with voice recording software. Unanticipated grammatical and interpretive errors may have been inadvertently transcribed. Please contact the copy writer for any clarification. Extracted from: Title:Clinical Document Author:Azra Zavala Date:08/12/24 left vm for [employer] for 2nd level appeal 08-12-24 Extracted from: Title:GG Note Author:Sandy White RN Da te:08/12/24 IDT reviewed resident? s primary diagnosis and usual status. We agree that diagnosis and functional score accurately demonstrates resident? s need for skilled services, usual abilities and GG discharge goals are reasonable and measurable. See resident? s 5D section I and GG coding details. Extracted from: Title:Clinical Document Author:Grant Zhang NP Date:08/11/24 [facility] N AND THERAPY SENIOR LIVING PROGRESS NOTE Pili Bernard is a 63 YO female at [facility] Residential facility for rehabilitation. Subjective: Interval History: I am seeing the patient today for a skilled encounter. she is lying comfortably in her bed. No acute concerns at this time Nursing staff with no concerns about the patient Review of Systems: A 14 point comprehensive review of systems was negative except what is documented in interval history above. Objective: Exam: Vital Signs: Vital signs were reviewed in the facility EMR and were unremarkable. General: Well developed, well nourished, in no distress - pleasant, obese Skin: Normal appearance, normal turgor, no rashes - Shekhar wraps on the lower extremities. HEENT: Normocephalic, atraumatic, no flaring Eyes: nonicteric, intact extra ocular movement, PERRL Neck: normal, supple, no lymphadenopathy Heart: Iregularly irregular rhythm, normal rate, S1, S2 normal, no murmur, click, rub or gallop Lungs: clear to auscultation, normal respirations, normal precautions Abdominal: soft, non-tender; bowel sounds normal; no masses, no organomegaly Extremities: no deformities, joint mobility appears intact, no clubbing Neuro: Non-focal, CN intact, sensory and motor intact Psychological: alert and oriented X3, appropriate mood and affect, Intact judgement and memory Lab Results: The most recent lab results were reviewed and were stable. Imaging: The most recent imaging studies were reviewed and no new findings were noted Assessment/Plan: Generalized weakness and deconditioning Had a nearly 2 week hospitalization for septic shock and cellulitis Receiving residential care and physical therapy rehabilitation 08/11 - improving Chronic atrial fibrillation anticoagulated with Xarelto rate controlled with diltiazem -Stable anemia patient reports she had have a blood transfusion during hospitalization and is to follow-up with Hematology monitor labs hypertension Monitor blood pressures continue current regimen - well controlled obesity educated on weight loss strategies and encouraged to lose weight This note was dictated using [employer] fluency dictation system and there may be errors in loan approver. ??Despite proof reading the note, there may be mistakes and I apologize for those. By: Grant Zhang PA-C Extracted from: Title:Clinical Document Author:Gallito Finley Date:08/11/24 PHYSIATRY (PM&R) PROGRESS NO TE ENVIRONMENTAL RESTORATION PLANNER: DOMINIQUE Jackman PLACE OF SERVICE: [facility] PATIENT NAME: Pili Bernard DATE OF : 1960 DATE OF SERVICE: 08/11/2024 CHIEF COMPLAINT: Mobility and ADL deficits secondary to weakness, fatigue, AFib, lymphedema. HISTORY OF PRESENT ILLNESS UPON ADMISSION: Patient is a 63 y/o female. Relevant PMH includes AFib, lymphedema, hyponatremia, cervical cancer, who was admitted to [facility] for residential and rehabilitation secondary to deficits in mobility and ADL? s. Patient presented and seen in the ED for AFib. Patient? s rate was controlled with diltiazem. The HPI was obtained through chart review and my patient visit. PAST MEDICAL HISTORY: AFib, lymphedema, hyponatremia, cervical cancer. SUBJECTIVE: The patient? s plan and progress was discussed with nursing staff and therapy. Patient reports she has been participating in therapy and everything has been going well. Patient? s goal is to be able to go up and down steps by the end of the week. Patient currently denies any chest pain, pressure, tightness, heaviness, shortness of breath, abdominal pain, nausea, vomiting, fever or chills at this time. MEDICATIONS: As per MAR/EMR. LABS/IMAGING: Reviewed in EMR. CURRENT FUNCTIONAL STATUS: Transfer SBA, bed mobility SBA. Gait 60 feet, SBA, crutches. Balance, fair-. Safety G. UB dressing independent, LB dressing CGA, upper body bathing min assist, lower body bathing max assist, toileting CGA. PFSH/ROS: Unchanged from initial encounter unless otherwise noted in Subjective above. Otherwise, 10 systems were reviewed and were negative. PHYSICAL EXAMINATION: Vitals: Blood pressure 126/65, heart rate 73, temperature 97.7, respiratory rate 18, O2 sat 99%. Constitutional: Patient alert and oriented, exhibits no signs and symptoms of distress or discomfort. Patient in her room in bed, eating lunch at this time. HEENT: Eyes: no scleral icterus, normal conjunctiva and lids with no discharge. Ears: normal appearance, no scars, lesions, or masses. Neck: no neck masses, trachea midline. Cardiac: BLE edema, severe lymphedema. Respiratory: Normal respiratory effort; no accessory muscle use. GI: Abdomen soft, nondistended, nontender to palpation. : No Lynch present, no suprapubic tenderness. Skin: No skin lesions or rashes noted in b/l UE or LE. Severe BLE lymphedema, noted BLE excoriation. Patient is being followed by an in-house wound nurse. Psych: A&Ox3 with good mood and appropriate affect. Neuro: Able to follow one/two step directions. Speech is clear and without aphasia. No facial droop. Good coordination in all extremities. Normal reflexes and no focal sensation loss to light touch. Musculoskeletal Exam: Inspection: No asymmetry, masses, or effusions of b/l UE and LE. Tone: Normal tone in b/l UE and LE. Stability: Joints are stable with no joint laxity or subluxation. Palpation: No tenderness to palpation of b/l UE and LE. Range of Motion: Functional ROM in b/l UE, functional ROM in b/l LE. Muscle Strength: Symmetric anti-gravity strength in b/l UE and LE. BLE 4/5. Gait: Not observed. ASSESSMENT & PLAN: 1) ADL and mobility dysfunction secondary to weakness, fatigue, AFib, lymphedema. 2) The patient will continue with their skilled therapy services. Services may include PT/OT/INSURANCE CONSULTANT with the goal of increasing strength, endurance, self-care abilities, neuromotor training, and functional mobility training. 3) Deconditioning/Gait Instability: Patient is high risk for functional impairment without therapy and adequate pain control. Anticoagulant, Xarelto. 4) Chronic AFib: Continue current medication regimen. Patient remains stable at this time. 5) Anemia: Stable at this time. No active signs and symptoms of bleeding noted. 6) Severe BLE lymphedema: BLE SHEKHAR wraps on at this time. Patient remains stable. 7) Pain: Patient? s pain is currently controlled. Continue current pain medications. 8) Bowel & Bladder Management: Will continue to monitor in conjunction with nursing team; will discuss any issues identified with internal medicine. 9) Medical comorbidities continue to be managed by primary care team. Patient will continue medications per primary care team. Labs, previous imaging, relevant previous records, and therapy notes were reviewed. Patient? s rehab and medical needs were discussed with nursing staff and therapy. Discharge planning/Disposition: Will continue discussion with the therapy team, family, and social media specialist. Will further determine as rehab progresses. Will follow the patient throughout rehabilitation course to manage rehabilitation and any barriers to therapies. Patient's goal is to return home. [facility] I spoke with the patient on 08/06/2024, regarding CCM services. Patient verbalized understanding of CCM services and a potential patient responsibility including copay was communicated. Patient understands that only one health healthcare market consultant can furnish and bill CCM services during a calendar month and accepted terms and conditions and consented to enroll in the program. Please do not hesitate to contact me with any questions. DOMINIQUE Jackman Please note this dictation was completed with voice recording software. Unanticipated grammatical and interpretive errors may have Extracted from: Title:Clinical Document Author:Azra Zavala [facility] [place] Date:08/10/24 patient is doing 2nd level a ppeal ABN signed Extracted from: Title:Clinical Document Author:Azra Zavala [facility] [place] Date:08/07/24 appeal uploaded to [employer] 1 dc set for 08-10-24 nomnc served to patient and family Extracted from: Title:Clinical Document Author:Grant Zhang ENTERPRISE SECURITY ARCHITECT Date:08/04/24 [facility] AND THERAP[facility] SENIOR LIVING PROGRESS NOTE Pili Bernard is a 63 YO female at [facility] Residential facility for rehabilitation. Subjective: Interval History: I am seeing the patient today for a skilled encounter. she is lying comfortably in her bed. No acute concerns at this time Nursing staff with no concerns about the patient Review of Systems: A 14 point comprehensive review of systems was negative except what is documented in interval history above. Objective: Exam: Vital Signs: Vital signs were reviewed in the facility EMR and were unremarkable. General: Well developed, well nourished, in no distress - pleasant, obese Skin: Normal appearance, normal turgor, no rashes - Shekhar wraps on the lower extremities. HEENT: Normocephalic, atraumatic, no flaring Eyes: nonicteric, intact extra ocular movement, PERRL Neck: normal, supple, no lymphadenopathy Heart: Iregularly irregular rhythm, normal rate, S1, S2 normal, no murmur, click, rub or gallop Lungs: clear to auscultation, normal respirations, normal precautions Abdominal: soft, non-tender; bowel sounds normal; no masses, no organomegaly Extremities: no deformities, joint mobility appears intact, no clubbing Neuro: Non-focal, CN intact, sensory and motor intact Psychological: alert and oriented X3, appropriate mood and affect, Intact judgement and memory Lab Results: The most recent lab results were reviewed and were stable. Imaging: The most recent imaging studies were reviewed and no new findings were noted Assessment/Plan: Generalized weakness and deconditioning Had a nearly 2 week hospitalization for septic shock and cellulitis Receiving residential care and physical therapy rehabilitation Chronic atrial fibrillation anticoagulated with Xarelto rate controlled with diltiazem -Stable anemia patient reports she had have a blood transfusion during hospitalization and is to follow-up with Hematology monitor labs hypertension Monitor blood pressures continue current regimen - well controlled obesity educated on weight loss strategies and encouraged to lose weight This note was dictated using [employer] fluency dictation system and there may be errors in loan approver. ??Despite proof reading the note, there may be mistakes and I apologize for those. By: Grant Zhang PA-C Extracted from: Title:Clinical Document Author:Stanislav Buenrostro Pharmacist Date:08/01/24 Pharmacy Progress Note Based upon the information available at the time of the review, and assuming the accuracy and completeness of such information, it is my professional judgement that at such time, the resident? s medication regimen contained no new irregularities. 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; patient is full code; has wounds on LE with edema has shekhar wraps; also refused to wear cpap; goal is to return home with home health Diagnostic Tests Pending * Basic Met Pnl Incl GFR (BMP) * ([facility]) 08/06/24 * Magnesium Level *([facility]) 08/06/24 * CBC w/Diff *([facility]) 08/06/24 * Ferritin *([facility]) 08/03/24 * CBC w/Diff *([facility]) 08/03/24 * Basic Met Pnl Incl GFR (BMP) * ([facility]) 08/03/24 * CBC w/Diff *([facility]) 08/14/24 * CBC w/Diff *([facility]) 08/12/24 * Basic Met Pnl Incl GFR (BMP) * ([facility]) 08/14/24 * Basic Met Pnl Incl GFR (BMP) * ([facility]) 08/12/24 Functional Status 08/17/24 Behaviors Exhibited Calm, Cooperative Interventions Used to Alter Behavior Com fort and compassion 07/31/24 Affect/Behavior Appropriate, Calm, Cooperative 07/30/24 Recent Travel History No recent travel Family Member Travel History No recent t ravel Immunizations Given and Recorded Vaccine Date Status Refusal Reason tuberculin purified protein derivative 08/13/24 Gi jessica tuberculin purified protein derivative 1 07/31/24 Given 1Early/Late Reason: Early/Late Reason: Flexible Med Pass Medications acetaminophen 325 mg oral tablet = 2 tab(s), Oral, q4hr, PRN as needed for pain, 0 Refill(s), Indication: pain Start Date: 08/21/24 Status: Ordered Adult Multivitamin Gummies oral tablet, chewable 1 tab(s), Oral, Daily, 0 Refill(s), Indication: supplement Start Date: 08/21/24 Status: Ordered cyanocobalamin 1000 mcg oral tablet = 1 tab(s), Oral, Daily, 0 Refill(s), Indication: supplement Start Date: 08/21/24 Status: Ordered DilTIAZem (Eqv-Cardizem CD) 120 mg/24 hours oral capsule, extended release = 1 cap(s), Oral, Daily, 0 Refill(s), Indication: HTN Start Date: 08/21/24 Status: Ordered ferrous sulfate 325 mg (65 mg elemental iron) oral delayed release tablet = 1 tab(s), Oral, BID, 0 Refill(s), Indication: supplement Start Date: 08/21/24 Status: Ordered furosemide 20 mg oral tablet = 1 tab(s), Oral, BID, 0 Refill(s), Indication: edema Start Date: 08/21/24 Status: Ordered metoprolol succinate 25 mg oral tablet, extended release = 1 tab(s), Oral, q12hr, 0 Refill(s), Indication: HTN Start Date: 08/21/24 Status: Ordered midodrine 10 mg oral tablet = 1 tab(s), Oral, TID, 0 Refill(s), Indication: HTN Start Date: 08/21/24 Status: Ordered rivaroxaban 10 mg oral tablet = 1 tab(s), Oral, Daily, 0 Refill(s), Indication: afib Start Date: 08/21/24 Status: Ordered Results Laboratory List Name Date Protime-INR *([facility]) 08/19/24 Ongoing Evaluation Skilled Services 07/29 11/20 Ongoing Evaluation Skilled Services 07/29 Ongoing Evaluation Skilled Services 07/28 07/21 Most recent to oldest [Reference Range]: 1 2 3 WBC [4.5-10.8 K/mm3] 4.3 K/mm3 *LOW* (08/19/24 6:51 AM) RBC [3.90-5.40 M/mm^3] 2.49 M/mm^3 *LOW* (08/19/24 6:51 AM) PT [9.8-12.2 second(s)] 14.6 second(s) *HI* (08/19/24 6:51 AM) INR [0.9-1.2] 1.4 1 *HI* (08/19/24 6:51 AM) BUN [7-25 mg/dL] 12 mg/dL (08/19/24 6:51 AM) Potassium Lvl [3.5-5.3 mEq/L] 3.4 mEq/L *LOW* (08/19/24 6:51 AM) MCV [80.0-100.0 fL] 100.2 fL *HI* (08/19/24 6:51 AM) MCHC [31.0-36.5 gm/dL] 32.1 gm/dL (08/19/24 6:51 AM) Sodium Lvl [136-145 mEq/L] 141 mEq/L (08/19/24 6:51 AM) Hct [36.0-48.0 %] 24.9 % *LOW* (08/19/24 6:51 AM) Hypochrom [NEGATIVE-NEGATIVE] DNR (08/19/24 6:51 AM) Calcium Lvl [8.6-10.3 mg/dL] 8.4 mg/dL 2 *LOW* (08/19/24 6:51 AM) Glucose Lvl 83 mg/dL 3 (08/19/24 6:51 AM) MCH [26.0-35.0 pg] 32.2 pg (08/19/24 6:51 AM) Hgb [12.0-16.0 gm/dL] 8.0 gm/dL *LOW* (08/19/24 6:51 AM) NRBC Man [<1.0 /100 WBC] 0.1 /100 WBC (08/19/24 6:51 AM) MPV [6.5-12.0 fL] 9.5 fL (08/19/24 6:51 AM) Platelet [150-450 K/mm3] 168 K/mm3 (08/19/24 6:51 AM) Chloride [98-110 mEq/L] 105 mEq/L (08/19/24 6:51 AM) CO2 [21-33 mEq/L] 28 mEq/L (08/19/24 6:51 AM) RDW [11.0-16.0 %] 19.2 % *HI* (08/19/24 6:51 AM) Auto Neut % [40.0-80.0 %] 52.5 % (08/19/24 6:51 AM) Auto Lymph % [13.0-48.0 %] 23.9 % (08/19/24 6:51 AM) Auto Assumption % [2.0-12.0 %] 13.7 % *HI* (08/19/24 6:51 AM) Auto Eos % [0.0-8.0 %] 8.0 % (08/19/24 6:51 AM) Auto Baso % [0.0-2.0 %] 1.9 % (08/19/24 6:51 AM) Creatinine Lvl [0.6-1.2 mg/dL] 0.8 mg/dL (08/19/24 6:51 AM) Urine Color Urine Dipstick Yellow (08/17/24 5:44 PM) Yellow (08/16/24 4:01 PM) Yellow (08/15/24 4:45 PM) Urine Appearance Urine Dipstick Clear (08/17/24 5:44 PM) Clear (08/16/24 4:01 PM) Clear (08/15/24 4:45 PM) Baso Absolute [0.00-0.30 K/uL] 0.10 K/uL (08/19/24 6:51 AM) Eos Absolute [0.20-0.80 K/uL] 0.30 K/uL (08/19/24 6:51 AM) Neutrophils (Absolute) [1.50-7.60 K/uL] 2.30 K/uL (08/19/24 6:51 AM) GFR [>60 mL/min/1.73m2] 72 mL/min/1.73m2 4 (08/19/24 6:51 AM) GFR [>60 mL/min/1.73m2] 87 mL/min/1.73m2 (08/19/24 6:51 AM) Anisocytosis [NEGATIVE-NEGATIVE] 2+ (08/19/24 6:51 AM) Hyperchromic DNR 5 (08/19/24 6:51 AM) Macrocytic [NEGATIVE-NEGATIVE] 1+ (08/19/24 6:51 AM) Microcytosis [NEGATIVE-NEGATIVE] DNR (08/19/24 6:51 AM) BUN/Creat Ratio [6-25] 15 (08/19/24 6:51 AM) Absolute Monocytes [0.15-1.10 K/uL] 0.60 K/uL (08/19/24 6:51 AM) Absolute Lymphocytes [0.90-5.50 K/uL] 1.00 K/uL (08/19/24 6:51 AM) Lg Unstained Cell DNR (08/19/24 6:51 AM) Srinivasan (Abs) DNR (08/19/24 6:51 AM) 1Result Comment: STANDARD ANTICOAGULANT: 2.0-3.0 INR AGGRESSIVE ANTICOAGULANT: 2.5-3.5 INR [place] [address] Lab test performed by: Lab Mnemonic: MANINDER 2Result Comment: [place] [address] Lab test performed by: Lab Mnemonic: MANINDER 3Result Comment: GLUCOSE, FASTING 65-99 mg/dL GLUCOSE, NON-FASTING 65-125 mg/dL 4Result Comment: Stage of CKD eGFR (mL/min/1.73 square meters) Stage 1 >/= 90 or > 90 Stage 2 60 - 89 Stage 3 30 - 59 Stage 4 15 - 29 Stage 5 </= 14 or < 15 GFR is reliable for adults 17 to 69 years with stable kidney function. 5Result Comment: Testing performed at [facility] - [address] [place] [id number] Lab test performed by: Lab Mnemonic: SAHRA , Vital Signs Most recent to oldest [Reference Range]: 1 Blood Pressure [90-120/60-80 mmHg] 122/8 3mmHg *HI* (08/16/24 2:00 PM) Temperature Axillary [95.9-97.34 DegF] 9 8.5 DegF *HI* (08/14/24 8:29 PM) Temperature Tympanic [97.88-100.4 DegF] 98 DegF (08/08/24 2:40 PM) Peripheral Pulse Rate [60-100 bpm] 93 bp m (08/16/24 2:00 PM) Respiratory Rate [14-20 br/min] 18 br/mi n (08/16/24 2:01 PM) Temperature Infrared [96.44-98.42 DegF] 98.3 DegF (08/16/24 2:00 PM) Social History Social History Type Response Smoking Status Never (less than 100 in lifetime); Smokeless Tobacco Use: Never; Exposure to Secondhand Smoke No; Previous treatment: None entered on: 08/06/24 Sex Hospital Discharge Instructions Patient Education 08/21/2024 10:54:48 Sepsis, Self Care, Adult Sepsis, Self Care, Adult Sepsis is a serious illness that may require intensive care in the hospital. The following information explains what you need to know in order to manage your condition after you are discharged from the hospital. What are the risks? After being treated for sepsis and discharged from the hospital, you may be at a higher risk for certain problems. These problems may be physical or mental. Physical problems: ??? Weakness and tiredness. ??? Shortness of breath. ??? Pain in many areas of the body. ??? Difficulty walking. ??? Dry, itchy skin. ??? Lack of appetite. This may lead to weight loss. ??? Organ failure. Mental problems: ??? Difficulty sleeping. ??? Depression. ??? Confusion. ??? Anxiety and worry caused by having gone through a bad experience (post- traumatic stress disorder,PTSD). ??? Low self-esteem. Follow these instructions at home: Medicines ??? Take [id number] and prescription medicines only as told by your health care provider. ??? If you were prescribed an antibiotic, antiviral, or antifungal medicine, take it as told by your health care provider. Do not stop taking the medicine even if you start to feel better. Eating and drinking ??? Eat a healthy diet that includes plenty of vegetables, fruits, whole grains, low-fat dairy products, and lean protein. Ask your health care provider if you should avoid certain foods. ??? Drink enough fluid to keep your urine pale yellow. Alcohol use ??? Do not drink alcohol if: ??? Your health care provider tells you not to drink. ??? You are , may be , or are planning to become . ??? If you drink alcohol, limit how much you use to: ??? 0???1 drink a day for women. ??? 0???2 drinks a day for men. ??? Be aware of how much alcohol is in your drink. In the [place] one drink equals one 12 oz bottle of beer (355 mL), one 5 oz glass of wine (148 mL), or one 1?? oz glass of hard liquor (44 mL). Activity ??? Rest as told by your health care provider. ??? Avoid sitting for a long time without moving. Get up to take short walks every 1???2 hours. This is important to improve blood flow and breathing. Ask for help if you feel weak or unsteady. ??? Try to set small, achievable goals each week, such as dressing yourself, bathing, or walking upthe stairs. It may take a while to rebuild your strength. ??? Try to exercise regularly if you feel healthy enough to do so. Ask your health care provider what exercises are safe for you. ??? Return to your normal activities as told by your health care provider. Ask your health care provider what activities are safe for you. Preventing infection ??? Keep your vaccinations up to date. Get the flu shot every year. ??? Wash your hands often for at least 20 seconds using soap and water. If soap and water are not available, use hand ms access database developer. ??? Practice good hygiene. Keep cuts clean and covered until they heal. Managing stress Talk with your health care provider or counselor about ways to reduce stress. He or she may suggest: ??? Meditation, muscle relaxation, and breathing exercises. ??? Listening to music. ??? Talk therapy. ??? Spending time on hobbies and activities that you enjoy. General instructions ??? Get the right amount and quality of sleep. Most adults need 7???9 hours of sleep each night. Tohelp with sleep: ??? Keep your bedroom cool and dark. ??? Do not eat a heavy meal within one hour of bedtime. ??? Do not drink alcohol or caffeinated drinks before bed. ??? Avoid screen time, such as television, computers, tablets, or cell phones before bed. ??? Do not use any products that contain nicotine or tobacco. These products include cigarettes, chewing tobacco, and vaping devices, such as e-cigarettes. If you need help quitting, ask your health care provider. ??? Talk to trusted family members and friends about your condition. Explain your symptoms to them,and let them know that you are working with a health care provider to treat your condition. This can provide you with one way to get support and guidance. ??? Keep all follow-up visits. This is important. Questions to ask your health care provider: ??? What physical and emotional changes do I need to report? Do I need to have someone with me all the time? Is it safe for me to drive? Contact a health care provider if: ??? You do not feel like you are getting better or regaining strength. ??? You have muscle or joint pain. ??? You frequently feel tired. ??? You are having trouble coping with your recovery. ??? You have nightmares, or trouble falling asleep or staying asleep. ??? You feel sad, down, or depressed more often than not, every day for more than 2 weeks. ??? You have difficulty concentrating. ??? You feel irritable or you cry for no reason. Get help right away if: ??? You have difficulty breathing. ??? You have a rapid or skipping heartbeat. ??? You become confused or disoriented. ??? You see, hear, or feel things that do not exist (hallucinations). ??? You have a high fever. ??? You have an infection that is getting worse or not getting better. ??? You have thoughts of hurting yourself or others. These symptoms may represent a serious problem that is an emergency. Do not wait to see if the symptoms will go away. Get medical help right away. Call your local emergency services (061 in the [place] Do not drive yourself to the hospital. If you ever feel like you may hurt yourself or others, or have thoughts about taking your own life,get help right away. Go to your nearest emergency department or: ??? Call your local emergency services (120 in the [place] ??? Call a suicide crisis helpline, such as the National Suicide Prevention Lifeline at or 249 in the [place] This is open 24 hours a day. ??? Text the Crisis Text Line at 360997 (in the [place] Summary ??? Sepsis is a serious illness that may require intensive care in a hospital. You may experience long-term health effects after you are discharged from the hospital. ??? Try to set small, achievable goals each week, such as dressing yourself, bathing, or walking upthe stairs. It may take a while to rebuild your strength. ??? Know what symptoms you should get help right away for. ??? Keep all follow-up visits. This is important. This information is not intended to replace advice given to you by your health care provider. Make sure you discuss any questions you have with your health care provider. Document Revised: 05/09/2022 Document Reviewed: 08/28/2021 [employer] Patient Education ?? 2021 [employer]. 08/21/2024 10:54:32 Atrial Fibrillation, Guqx-fu-Hmup Atrial Fibrillation Atrial fibrillation is a type of heartbeat that is irregular or fast. If you have this condition, your heart beats without any order. This makes it hard for your heart to pump blood in a normal way. Atrial fibrillation may come and go, or it may become a long-lasting problem. If this condition is not treated, it can put you at higher risk for stroke, heart failure, and other heart problems. What are the causes? This condition may be caused by diseases that damage the heart. They include: ??? High blood pressure. ??? Heart failure. ??? Heart valve disease. ??? Heart surgery. Other causes include: ??? Diabetes. ??? Thyroid disease. ??? Being overweight. ??? Kidney disease. Sometimes the cause is not known. What increases the risk? You are more likely to develop this condition if: ??? You are older. ??? You smoke. ??? You exercise often and very hard. ??? You have a family history of this condition. ??? You are a man. ??? You use drugs. ??? You drink a lot of alcohol. ??? You have lung conditions, such as emphysema, pneumonia, or COPD. ??? You have sleep apnea. What are the signs or symptoms? Common symptoms of this condition include: ??? A feeling that your heart is beating very fast. ??? Chest pain or discomfort. ??? Feeling short of breath. ??? Suddenly feeling light-headed or weak. ??? Getting tired easily during activity. ??? Fainting. ??? Sweating. In some cases, there are no symptoms. How is this treated? Treatment for this condition depends on underlying conditions and how you feel when you have atrialfibrillation. They include: ??? Medicines to: ??? Prevent blood clots. ??? Treat heart rate or heart rhythm problems. ??? Using devices, such as a pacemaker, to correct heart rhythm problems. ??? Doing surgery to remove the part of the heart that sends bad signals. ??? Closing an area where clots can form in the heart (left atrial appendage). In some cases, your doctor will treat other underlying conditions. Follow these instructions at home: Medicines ??? Take [id number] and prescription medicines only as told by your doctor. ??? Do not take any new medicines without first talking to your doctor. ??? If you are taking blood thinners: ??? Talk with your doctor before you take any medicines that have aspirin or NSAIDs, such as ibuprofen, in them. ??? Take your medicine exactly as told by your doctor. Take it at the same time each day. ??? Avoid activities that could hurt or bruise you. Follow instructions about how to prevent falls. ??? Wear a bracelet that says you are taking blood thinners. Or, carry a card that lists what medicines you take. Lifestyle ??? Do not use any products that have nicotine or tobacco in them. These include cigarettes, e-cigarettes, and chewing tobacco. If you need help quitting, ask your doctor. ??? Eat heart-healthy foods. Talk with your doctor about the right eating plan for you. ??? Exercise regularly as told by your doctor. ??? Do not drink alcohol. ??? Lose weight if you are overweight. ??? Do not use drugs, including cannabis. General instructions ??? If you have a condition that causes breathing to stop for a short period of time (apnea), treatit as told by your doctor. ??? Keep a healthy weight. Do not use diet pills unless your doctor says they are safe for you. Diet pills may make heart problems worse. ??? Keep all follow-up visits as told by your doctor. This is important. Contact a doctor if: ??? You notice a change in the speed, rhythm, or strength of your heartbeat. ??? You are taking a blood-thinning medicine and you get more bruising. ??? You get tired more easily when you move or exercise. ??? You have a sudden change in weight. Get help right away if: ??? You have pain in your chest or your belly (abdomen). ??? You have trouble breathing. ??? You have side effects of blood thinners, such as blood in your vomit, poop (stool), or pee (urine), or bleeding that cannot stop. ??? You have any signs of a stroke. BE FAST is an easy way to remember the main warning signs: ??? B - Balance. Signs are dizziness, sudden trouble walking, or loss of balance. ??? E - Eyes. Signs are trouble seeing or a change in how you see. ??? F - Face. Signs are sudden weakness or loss of feeling in the face, or the face or eyelid drooping on one side. ??? A - Arms. Signs are weakness or loss of feeling in an arm. This happens suddenly and usually onone side of the body. ??? S - Speech. Signs are sudden trouble speaking, slurred speech, or trouble understanding what people say. ??? T - Time. Time to call emergency services. Write down what time symptoms started. ??? You have other signs of a stroke, such as: ??? A sudden, very bad headache with no known cause. ??? Feeling like you may vomit (nausea). ??? Vomiting. ??? A seizure. These symptoms may be an emergency. Do not wait to see if the symptoms will go away. Get medical help right away. Call your local emergency services (911 in the [place] Do not drive yourself to the hospital. Summary ??? Atrial fibrillation is a type of heartbeat that is irregular or fast. ??? You are at higher risk of this condition if you smoke, are older, have diabetes, or are overweight. ??? Follow your doctor's instructions about medicines, diet, exercise, and follow-up visits. ??? Get help right away if you have signs or symptoms of a stroke. ??? Get help right away if you cannot catch your breath, or you have chest pain or discomfort. This information is not intended to replace advice given to you by your health care provider. Make sure you discuss any questions you have with your health care provider. Document Revised: 04/06/2020 Document Reviewed: 04/06/2020 [employer] Patient Education ?? 2022 [employer]. Pharmacology Progress note * Stanislav Buenrostro Pharmacist: PERFORM Event Display: Pharmacy Progress Note Authored Date: [id number] Pharmacy Progress Note Based upon the information available at the time of the review, and assuming the accuracy and completeness of such information, it is my professional judgement that at such time, the resident???s medication regimen contained no new irregularities. Electronically Signed on 08/01/2024 01:23 PM CDT Stanislav Buenrostro Pharmacist Note * Shaylee Pizano MD: PERFORM Event Display: Wound Note* Authored Date: [id number] PILI BERNARD ([id number]) Progress Note Details Patient Name:?PILI BERNARD Date of /Sex:?1960 (63 y.o. Female) Primary Care Provider:? Referring Provider:? Weeks in Treatment:?2 Date of Service:?08/17/2024 1:00 PM Patient Account Number:? Nurse:? Scribe:? Treating Provider/Telepathist:?Shaylee Pizano Subjective ?? Chief Complaint Information obtained from Caregiver BLE ulcers and edema ? History of Present Illness (HPI) Admitted with BLE edema- chronic, multifactorial- venous insufficiency, lymphedema, BMI >60, morbid obesity- pt reports started as blisters that spread - uncontrolled edema despite furosemide- continue this as ordered; encouraged elevation of legs and frequent repositioning. Limited as patient c ontinues to refuse bariatric size bed; unable to reposition safely onto her side in current bed. R and L calf lymphedema/venous ulcers resolved with foam dressings and light compression with SHEKHAR wraps; Continue elevation, repositioning, walking, lasix ? Plan of Care: as above Goals for wound: closure-met Frequency of encounters: PRN Duration of expected treatment: completed Potential to heal: resolved but high risk of recurrence unless edema better controlled ? Objective ?? Integumentary (Hair, Skin) Wound #1 status is Healed - Epithelialized. Original cause of wound was Blister. The date acquired was: 07/30/2024. The wound has been in treatment 2 weeks. The wound has etiologies of Lymphedema and Venous Leg Ulcer and is located on the Left Calf. ?? Wound #2 status is Healed - Epithelialized. Original cause of wound was Blister. The date acquired was: 07/30/2024. The wound has been in treatment 2 weeks. The wound has etiologies of Lymphedema and Venous Leg Ulcer and is located on the Right Calf. ? I understand as a provider that the creation of this Progress Note is my responsibility. Based on my medical observations while examining this patient, I certify that these notes are my notes defining the medical decision making process I utilized during this visit including the etiology, grade or staging of each of the wounds. ?? Submitted: 08/18/2024 22:19? By: Shaylee Pizano Assessment ?? Active Problems ICD-10 Lymphedema, not elsewhere classified Venous insufficiency (chronic) (peripheral) Body mass index [BMI] 60.0-69.9, adult Other abnormalities of gait and mobility ? Plan ?? Nutrition: Discussed nutrition and its impact on wound healing - MVI Pressure Relief/Offloading: Follow Facility Pressure Ulcer Prevention Policy/Protocol Pressure Redistribution Mattress per Facility Policy/Protocol Wheelchair Pressure Redistribution Cushion per Facility Policy/Protocol Offload heels per Facility Policy/Protocol Plan of Care: Plan of Care discussed with Patient - elevate legs; reposition frequently Plan of Care discussed with Facility Staff ? Electronic Signature(s) Signed: 08/18/2024 9:21:24 PM By: Shaylee Pizano MD Electronically Signed on 08/18/2024 10:21 PM EDT Shaylee Pizano MD * Zenia Greer MR: PERFORM Event Display: Therapy Notes* Authored Date: [id number] * Sandy White RN: PERFORM Event Display: Progress Note - MDS Authored Date: [id number] IDT reviewed resident???s primary diagnosis and usual status. We agree that diagnosis and functional score accurately demonstrates resident???s need for skilled services, usual abilities and GG discharge goals are reasonable and measurable. See resident???s 5D section I and GG coding details. Electronically Signed on 08/12/2024 12:02 PM CDT Sandy White RN Progress note * Grant Zhang ENTERPRISE SECURITY ARCHITECT: PERFORM Event Display: Progress Note-Physician Authored Date: [id number] [facility] PROGRESS NOTE Pili Bernard is a 63 YO female at [facility] Residential facility for rehabilitation. Subjective: Interval History: I am seeing the patient today for a skilled encounter. she is lying comfortably in her bed. No acute concerns at this time Nursing staff with no concerns about the patient Review of Systems: A 14 point comprehensive review of systems was negative except what is documented in interval history above. Objective: Exam: Vital Signs: Vital signs were reviewed in the facility EMR and were unremarkable. General: Well developed, well nourished, in no distress - pleasant, obese Skin: Normal appearance, normal turgor, no rashes - Shekhar wraps on the lower extremities. HEENT: Normocephalic, atraumatic, no flaring Eyes: nonicteric, intact extra ocular movement, PERRL Neck: normal, supple, no lymphadenopathy Heart: Iregularly irregular rhythm, normal rate, S1, S2 normal, no murmur, click, rub or gallop Lungs: clear to auscultation, normal respirations, normal precautions Abdominal: soft, non-tender; bowel sounds normal; no masses, no organomegaly Extremities: no deformities, joint mobility appears intact, no clubbing Neuro: Non-focal, CN intact, sensory and motor intact Psychological: alert and oriented X3, appropriate mood and affect, Intact judgement and memory Lab Results: The most recent lab results were reviewed and were stable. Imaging: The most recent imaging studies were reviewed and no new findings were noted Assessment/Plan: Generalized weakness and deconditioning Had a nearly 2 week hospitalization for septic shock and cellulitis Receiving residential care and physical therapy rehabilitation 08/21 - improving Chronic atrial fibrillation anticoagulated with Xarelto rate controlled with diltiazem -Stable anemia patient reports she had have a blood transfusion during hospitalization and is to follow-up with Hematology monitor labs 08/21 - Hemoglobin in the 80s on numerous rechecks hypertension Monitor blood pressures continue current regimen - well controlled obesity educated on weight loss strategies and encouraged to lose weight Disposition: 08/21: Patient will be discharging to home today. She is comfortable with this plan and looking for to going home. She understands to call her PCP and follow-up in their office in the next 1-2 weeks. Understands to follow-up with Hematology. This note was dictated using M*Modal fluency dictation system and there may be errors in loan approver. ??Despite proof reading the note, there may be mistakes and I apologize for those. By: Grant Zhang PA-C Electronically Signed on 08/21/2024 01:16 PM CDT Grant Zhang ENTERPRISE SECURITY ARCHITECT equipment worker Progress note * Azra Zavala: PERFORM Event Display: Electronic Sensing Equipment Assembler Progress Note* Authored Date: [id number] 2nd level appeal; transfers sba mod i bed mob mod i use of bed rail walking 178 ft ind crutches stairs cga dressing ind LB sba bathing ind LB sba toileting sba LCD 08-20 DC 08-21 Electronically Signed on 08/18/2024 11:35 AM CDT Azra Zavala Patient Care team information Care Team Related Persons Name: MEAGAN BERNARD
--- OUTSIDE RECORDS SUMMARY | 2024-10-07 10:33 | XMS_ITS | Continuity of Care Document ---
Author Organization [facility] Address [address] [place] [address]- Care Team Providers Care Abalone Diver Name Role Phone Unavailable Primary Care Physician Unavailab le Encounter(s) 07/30/24 [facility] [address] [place] [address]- Attending Physician: Leanne Stacy Admitting Physician: Leanne Stacy Allergies, Adverse Reactions, Alerts Substance Criticality Severity Reaction Reaction Severity Status codeine Unable to assess criticality Medium Nausea and vomiting Active diazePAM Unable to assess criticality Medium Nausea and vomiting Active Assessment and Plan Extracted from: Title:Clinical Document Author:Azra Zavala Date:08/18/24 2nd level appeal; transfers sba mod i bed mob mod i use of bed rail walking 178 ft ind crutches stairs cga dressing ind LB sba bathing ind LB sba toileting sba LCD 08-20 DC 08-21 Extracted from: Title:Clinical Document Author:Gallito Finley Date:08/18/24 PHYSIATRY (PM&R) PROGRESS NO TE SLUBBER OPERATOR: DOMINIQUE Jackman PLACE OF SERVICE: [facility] PATIENT NAME: Pili Bernard. DATE OF : 1960 DATE OF SERVICE: 08/18/2024 CHIEF COMPLAINT: Mobility and ADL deficits secondary to weakness, fatigue, AFib, lymphedema. HISTORY OF PRESENT ILLNESS UPON ADMISSION: Patient is a 63 y/o female. Relevant PMH includes AFib, lymphedema, hyponatremia, cervical cancer, who was admitted to [facility] for penitentiary and rehabilitation secondary to deficits in mobility [...] their skilled therapy services. Services may include PT/OT/AVIATION TECHNICAL SYSTEMS SPECIALIST with the goal of increasing strength, endurance, [...] bleeding noted. 6) Severe BLE lymphedema: BLE JC wraps on at this time. Patient remains [...] with the therapy team, family, and social contact worker. Will further determine as rehab progresses. Will [...] communicated. Patient understands that only one health morning caregiver can furnish and bill CCM services during a calendar month and accepted terms and conditions and consented to enroll in the program. Please do not hesitate to contact me with any questions. DOMINIQUE Jackman Please note this dictation was completed with voice recording software. Unanticipated grammatical and interpretive errors may have been inadvertently transcribed. Please contact the marketing writer for any clarification. Extracted from: Title:Clinical Document Author:Cari Castro Date:08/14/24 [facility] PROGRESS NOTE Pili Bernard is a 63 YO F at [facility] facility for rehabilitation. Subjective: Interval History: Patient [...] Skin: Normal appearance, normal turgor, no rashes, jc wraps in place to bilateral lower extremities. [...] deformities, joint mobility appears intact, no clubbing, jc wraps in place to bilateral lower extremities [...] strategies and encouraged to lose weight By: Cari Castro, DELINQUENCY PREVENTION SOCIAL WORKER-C Extracted from: Title:Clinical Document Author:Gallito Finley Date:08/13/24 PHYSIATRY (PM&R) PROGRESS NO TE SLUBBER OPERATOR: DOMINIQUE Jackman PLACE OF SERVICE: [facility] PATIENT NAME: Pili Bernard DATE OF : 1960 DATE OF SERVICE: 08/13/2024 CHIEF COMPLAINT: Mobility and ADL deficits secondary to weakness, fatigue, AFib, lymphedema. HISTORY OF PRESENT ILLNESS UPON ADMISSION: Patient is a 63 y/o female. Relevant PMH includes AFib, lymphedema, hyponatremia, cervical cancer, who was admitted to [facility] for penitentiary and rehabilitation secondary to deficits in mobility [...] their skilled therapy services. Services may include PT/OT/AVIATION TECHNICAL SYSTEMS SPECIALIST with the goal of increasing strength, endurance, [...] bleeding noted. 6) Severe BLE lymphedema: BLE JC wraps on at this time. Patient remains [...] with the therapy team, family, and social contact worker. Will further determine as rehab progresses. Will [...] communicated. Patient understands that only one health morning caregiver can furnish and bill CCM services during a calendar month and accepted terms and conditions and consented to enroll in the program. Please do not hesitate to contact me with any questions. DOMINIQUE Jackman Please note this dictation was completed with voice recording software. Unanticipated grammatical and interpretive errors may have been inadvertently transcribed. Please contact the marketing writer for any clarification. Extracted from: Title:Clinical Document Author:Azra Zavala [facility] Date:08/12/24 left vm for livanta for 2nd [...] GG coding details. Extracted from: Title:Clinical Document Author:Azra Zavala SSC Date:08/10/24 patient is doing 2nd level a ppeal ABN signed Extracted from: Title:Clinical Document Author:Stanislav Buenrostro Pharmacist Date:08/01/24 Pharmacy Progress Note Based upon the information available at the time of the review, and assuming the accuracy and completeness of such information, it is my professional judgement that at such time, the resident? s medication regimen contained no new irregularities. 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; patient is full code; has wounds on LE with edema has jc wraps; also refused to wear cpap; goal is to return home with home health Diagnostic Tests Pending * Basic Met Pnl Incl GFR (BMP) * ([facility]) 08/06/24 * Magnesium Level *([facility]) 08/06/24 * CBC w/Diff *([facility]) 08/06/24 * Ferritin *([facility]) 08/03/24 * CBC w/Diff *([facility]) 08/03/24 * Basic Met Pnl Incl GFR (BMP) * ([facility]) 08/03/24 * CBC w/Diff *([facility]) 08/14/24 * CBC w/Diff *([facility]) 08/12/24 * Basic Met Pnl Incl GFR (BMP) * ([facility]) 08/14/24 * Basic Met Pnl Incl GFR (BMP) * ([facility]) 08/12/24 Functional Status 08/17/24 Behaviors Exhibited Calm, [...] Ordered Results Laboratory List Name Date Protime-INR *([facility]) 08/19/24 Ongoing Evaluation Skilled Services 07/29 11/20 [...] %] 23.9 % (08/19/24 6:51 AM) [place] % [2.0-12.0 %] 13.7 % *HI* (08/19/24 [...] AGGRESSIVE ANTICOAGULANT: 2.5-3.5 [place] [address] Lab test performed by: Lab Mnemonic: MANINDER 2Result Comment: [place] [address] Lab test performed by: Lab Mnemonic: MANINDER , 3Result Comment: GLUCOSE, FASTING 65-99 mg/dL GLUCOSE, [...] kidney function. 5Result Comment: [place] [address] Lab test performed by: Lab Mnemonic: MANINDER , Vital Signs Most recent to oldest [...] these instructions at home: Medicines ??? Take txfm-wrh-cvjdzau and prescription medicines only as told by [...] and water are not available, use hand thread inspector. ??? Practice good hygiene. Keep cuts clean [...] right away. Call your local emergency services (373 in the [place] Do not drive yourself to the hospital. If you ever feel like you may hurt yourself or others, or have thoughts about taking your own life,get help right away. Go to your nearest emergency department or: ??? Call your local emergency services (817 in the [place] ??? Call a suicide crisis helpline, such as the National Suicide Prevention Lifeline at or 672 in the [place] This is open 24 hours a day. ??? Text the Crisis Text Line at 414748 (in the [place] Summary ??? Sepsis is [...] provider. Document Revised: 05/09/2022 Document Reviewed: 08/28/2021 [employer] Patient Education ?? 2021 [employer] 08/21/2024 10:54:32 Atrial Fibrillation, Caki-wg-Ccbm Atrial Fibrillation Atrial fibrillation is a type [...] these instructions at home: Medicines ??? Take pmbu-bdi-wfmjcsk and prescription medicines only as told by [...] provider. Document Revised: 04/06/2020 Document Reviewed: 04/06/2020 [employer] Patient Education ?? 2021 [employer] Pharmacology Progress note * Stanislav Buenrostro Pharmacist: PERFORM Event Display: Pharmacy Progress Note Authored Date: [id number] Pharmacy Progress Note Based upon the information available at the time of the review, and assuming the accuracy and completeness of such information, it is my professional judgement that at such time, the resident???s medication regimen contained no new irregularities. Electronically Signed on 08/01/2024 01:23 PM CDT Stanislav Buenrostro Pharmacist Note * Shaylee Pizano MD: PERFORM Event Display: Wound Note* Authored Date: [id number] PILI BERNARD ([id number]) Progress Note Details Patient Name:?PILI BERNARD Date of /Sex:?1960 (63 y.o. Female) Primary Care Provider:? Referring Provider:? Weeks in Treatment:?2 Date of Service:?08/17/2024 1:00 PM Patient Account Number:? Nurse:? Scribe:? Treating Provider/Christian Science Nurse:?Shaylee Pizano Subjective ?? Chief Complaint Information obtained [...] with foam dressings and light compression with JC wraps; Continue elevation, repositioning, walking, lasix ? [...] PERFORM Event Display: Therapy Notes* Authored Date: [id number] * Sandy White RN: PERFORM Event Display: Progress Note - MDS Authored Date: [id number] IDT reviewed resident???s primary diagnosis and usual status. We agree that diagnosis and functional score accurately demonstrates resident???s need for skilled services, usual abilities and GG discharge goals are reasonable and measurable. See resident???s 5D section I and GG coding details. Electronically Signed on 08/12/2024 12:02 PM CDT Sandy White RN Progress note * Gallito Finley MD: PERFORM Event Display: Progress Note-Physician Authored Date: [id number] PHYSIATRY (PM&R) PROGRESS NOTE SLUBBER OPERATOR: DOMINIQUE Jackman PLACE OF SERVICE: [facility] PATIENT NAME: Pili Bernard DATE OF : 1960 DATE OF SERVICE: 08/18/2024 CHIEF COMPLAINT: Mobility and ADL deficits secondary to weakness, fatigue, AFib, lymphedema. HISTORY OF PRESENT ILLNESS UPON ADMISSION: Patient is a 63 y/o female. Relevant PMH includes AFib, lymphedema, hyponatremia, cervical cancer, who was admitted to [facility] for penitentiary and rehabilitation secondary to deficits in mobility and ADL???s. Patient presented and seen in the ED for AFib. Patient???s rate was controlled with diltiazem. The HPI was obtained through chart review and my patient visit. PAST MEDICAL HISTORY: AFib, lymphedema, hyponatremia, cervical cancer. SUBJECTIVE: The patient???s plan and progress was discussed with nursing staff and therapy. Patient reports she has gotten stronger since arriving at the facility. Patient reports she is ableto walk further with her crutches. Patient reports [...] their skilled therapy services. Services may include PT/OT/AVIATION TECHNICAL SYSTEMS SPECIALIST with the goal of increasing strength, endurance, [...] bleeding noted. 6) Severe BLE lymphedema: BLE JC wraps on at this time. Patient remains stable. 7) Pain: Patient???s pain is currently controlled. Continue current pain medications. 8) Bowel & Bladder Management: Will continue to monitor in conjunction with nursing team; will discuss any issues identified with internal medicine. 9) Medical comorbidities continue to be managed by primary care team. Patient will continue medications per primary care team. Labs, previous imaging, relevant previous records, and therapy notes were reviewed. Patient???s rehab and medical needs were discussed with nursing staff and therapy. Discharge planning/Disposition: Will continue discussion with the therapy team, family, and social contact worker. Will further determine as rehab progresses. Will [...] communicated. Patient understands that only one health morning caregiver can furnish and bill CCM services during a calendar month and accepted terms and conditions and consented to enroll in the program. Please do not hesitate to contact me with any questions. DOMINIQUE Jackman Please note this dictation was completed with voice recording software. Unanticipated grammatical and interpretive errors may have been inadvertently transcribed. Please contact the marketing writer for any clarification. Electronically Signed on 08/20/2024 01:18 PM CDT Gallito Finley MD rack production worker Progress note * Azra Zavala SSC: PERFORM Event Display: Political Consultant Progress Note* Authored Date: [id number] 2nd level appeal; transfers sba mod i bed mob mod i use of bed rail walking 178 ft ind crutches stairs cga dressing ind LB sba bathing ind LB sba toileting sba LCD 08-20 DC 08-21 Electronically Signed on 08/18/2024 11:35 AM CDT Azra Zavala [facility] Patient Care team information Care Team Related Persons Name: MEAGAN BERNARD
[2024-10-07] MEDS: SODIUM CHLORIDE 0.9% IV 1,000 ML 100 ML IV CONT (11:27)
[2024-10-07] MEDS: metroNIDAZOLE 500 MG/ISO 100ML 500 MG/100 ML BAG 100 MG IVPB ×2 (11:30→18:08)
[2024-10-07] MEDS: CEFEPIME 2 GM/NS 50 ML 2 GM/50 ML BAG IVPB ×2 (13:19→22:14)
[2024-10-07] MEDS: VANCOMYCIN 1,500 MG/NS 500 ML 1,500 MG/500 ML BAG 250 MG IVPB (15:59)
[2024-10-07] MEDS: RIVAROXABAN 10 MG TABLET PO (17:38)
[2024-10-07] MEDS: DIGOXIN INJ 250 MCG/ML 2 ML AMP (*BKC) 125 MCG IV PUSH (22:42)
[2024-10-08] VITALS (13 sets, daily range): BP systolic 94–102; BP diastolic 56–74; PULSE 84–101; RESP 16–20; TEMP 36.2–36.6; O2SAT 96–99
[2024-10-08] MEDS: metroNIDAZOLE 500 MG/ISO 100ML 500 MG/100 ML BAG 100 MG IVPB ×3 (02:16→17:11)
[2024-10-08] MEDS: SODIUM CHLORIDE 0.9% IV 1,000 ML 100 ML IV CONT (04:30)
[2024-10-08] MEDS: CEFEPIME 2 GM/NS 50 ML 2 GM/50 ML BAG IVPB ×3 (05:49→21:13)
[2024-10-08 06:08] LABS: Basophils Absolute Auto 0.1 K/mm3 (0.0-0.1); Basophils Percent Auto 1.3 % (0.2-1.2); Eosinophils Absolute Auto 0.4 K/mm3 (0-0.3); Eosinophils Percent Auto 5.6 % (0-4.4); Hematocrit 28.5 % (37.0-47.0); Hemoglobin 9.1 g/dL (12.0-15.0); Immature Granulocyte Absolute 0.09 K/mm3 (0.00-0.031); Immature Granulocyte Percent A 1.3 % (0-0.5); Lymphocytes Absolute Auto 1.24 K/mm3 (0.9-3.2); Lymphocytes Percent Auto 17.3 % (18.3-44.2); Mean Corpuscular HGB Conc 31.9 g/dl (32-36); Mean Corpuscular Hemoglobin 31.2 pg (26-34); Mean Corpuscular Volume 97.6 fl (80-100); Mean Platelet Volume 9.5 fl (7.4-10.4); Monocytes Absolute Auto 0.7 K/mm3 (0.1-0.6); Monocytes Percent Auto 10.2 % (2.6-8.5); Neutrophils Absolute Auto 4.6 K/mm3 (1.3-6.7); Neutrophils Percent Auto 64.3 % (45.5-73.1); Platelet Count Result 304 k/mm3 (150-375); Red Blood Count 2.92 M/mm3 (4.2-5.4); Red Cell Distribution Width 15.5 % (11.5-14.5); White Blood Count 7.2 K/mm3 (4.5-10.0)
[2024-10-08 06:20] LABS: Anion Gap 2 mmol/L (4-12); Blood Urea Nitrogen 23 mg/dL (7-17); Calcium 8.3 mg/dL (8.4-10.2); Carbon Dioxide 24 mmol/L (22-30); Chloride 107 mmol/L (98-107); Estimated CRCL calculation 64 ml/min; Estimated Glomerular Filt Rate 50; Glucose 76 mg/dL (65-110); Potassium 3.9 mmol/L (3.4-5.0); Sodium 133 mmol/L (137-145)
--- NOTE | 2024-10-08 07:42 | PM.IMPN ---
Progress Note: A&P Assessment and Plan (1) Paroxysmal atrial fibrillation with RVR: Code(s): I48.0 - Paroxysmal atrial fibrillation Status: Acute (2) Sepsis: Qualifiers: Acute renal failure type: unspecified Sepsis acute organ dysfunction status: with acute organ dysfunction Sepsis type: sepsis due to unspecified organism Severe sepsis acute organ dysfunction type: acute renal failure Severe sepsis shock status: without septic shock Qualified Code(s): A41.9 - Sepsis, unspecified organism; R65.20 - Severe sepsis without septic shock; N17.9 - Acute kidney failure, unspecified Code(s): A41.9 - Sepsis, unspecified organism Status: Acute (3) Leg wound, left: Qualifiers: Encounter type: initial encounter Qualified Code(s): S81.802A - Unspecified open wound, left lower leg, initial encounter Code(s): S81.802A - Unspecified open wound, left lower leg, initial encounter Status: Acute (4) Leg wound, right: Qualifiers: Encounter type: initial encounter Qualified Code(s): S81.801A - Unspecified open wound, right lower leg, initial encounter Code(s): S81.801A - Unspecified open wound, right lower leg, initial encounter Status: Acute (5) Acute exacerbation of chronic heart failure: Code(s): I50.9 - Heart failure, unspecified Status: Acute Plan Sepsis: Qualifiers: Sepsis type: sepsis due to unspecified organism Sepsis acute organ dysfunction status: with acute organ dysfunction Severe sepsis acute organ dysfunction type: acute renal failure Acute renal failure type: unspecified Severe sepsis shock status: without septic shock Qualified Code(s): A41.9 - Sepsis, unspecified organism; R65.20 - Severe sepsis without septic shock; Patient met sepsis criteria with fever, tachycardia, tachypnea and leukocytosis. Patient has sepsis due to leg wounds/cellulitis bilateral lower extremities blood cultures have been obtained and are pending. Received cefepime and now patient is on vancomycin and Zosyn 10/07 Will change to vancomycin cefepime and Flagyl to avoid nephrotoxicity Blood pressure still low Start normal saline IV 500 bolus and 100 mL/hour 10/08: BP stable. Discontinue IV fluid Leg wound, left: Qualifiers: Encounter type: initial encounter Qualified Code(s): S81.802A - Unspecified open wound, left lower leg, initial encounter Code(s): S81.802A - Unspecified open wound, left lower leg, initial encounter Status: Acute Leg wound, right: Qualifiers: Encounter type: initial encounter Qualified Code(s): S81.801A - Unspecified open wound, right lower leg, initial encounter Code(s): S81.801A - Unspecified open wound, right lower leg, initial encounter Status: Acute Erythema swelling, tender bilateral lower extremities, multiple ulcers with purulent discharge UOA Antibiotics see above Cellulitis improving, continue wound care Paroxysmal atrial fibrillation with RVR: Code(s): I48.0 - Paroxysmal atrial fibrillation Status: Acute hold home Cardizem as well, BP is low Continue Xarelto po Acute kidney injury: Code(s): N17.9 - Acute kidney failure, unspecified Status: Acute N17.9 - Acute kidney failure, unspecified Code(s): Elevated creatinine above baseline continue IV fluids at a gentle rate Follow-up BMP Chronic CHF Compensated actually intervascular volume depleted. hold home Lasix given acute kidney injury. Consult PT OT field care advocate for evaluation and assisting placement. Patient may benefit from rehab in skilled nursing May discharge patient in 1-2 days if cellulitis of lower extremities continue to improve Subjective Date/time seen: 10/08/24 07:42 Interval history: I saw exam patient in present the patient's nurse luis. Patient feels better today, patient has a general weakness, feeling better, denies palpitation, chest pain shortness of breath. Patient is afebrile, blood pressure stable on the lower side. Leukocytosis has resolved. Cellulitis of both lower extremity improving Exam Narrative: GENERAL: Pleasant, in no acute distress. Well-nourished. - EYES: EOMI. Anicteric. - HENT: Moist mucous membranes. - LUNGS: Clear to auscultation bilaterally, no wheezing, rhonchi, or rales. - CARDIOVASCULAR: Irregular irregular rhythm,. No murmur. No JVD. - ABDOMEN: Soft, non-tender and non-distended. No palpable masses. - EXTREMITIES: No edema. Peripheral pulses 2+. Non-tender. - NEUROLOGIC: No focal neurological deficits. CN II-XII grossly intact. - PSYCHIATRIC: Awake, Alert and oriented x 3. Appropriate mood and affect. - SKIN: Right knee, swelling, tender bilateral lower extremities, multiple ulcers with draining purulent, malodorous fluid - LYMPH: No cervical lymphadenopathy. - LYMPH: No cervical lymphadenopathy. Objective Data Vital Signs Vital Signs: Vital Signs - 24 hr 10/07/24 07:57 10/07/24 08:00 10/07/24 08:00 Temperature 97.7 F Pulse Rate 97 88 Respiratory Rate 20 Blood Pressure 87/64 L Pulse Oximetry 100 Oxygen Delivery Room Air 10/07/24 09:58 10/07/24 10:00 10/07/24 11:15 Temperature 97.9 F Pulse Rate 82 92 97 Respiratory Rate 16 Blood Pressure 90/65 L Pulse Oximetry 100 Oxygen Delivery 10/07/24 12:00 10/07/24 14:00 10/07/24 16:00 Temperature 97.8 F Pulse Rate 95 90 104 H Respiratory Rate 22 H Blood Pressure 118/63 Pulse Oximetry 98 Oxygen Delivery 10/07/24 16:00 10/07/24 17:25 10/07/24 20:00 Temperature 97.4 F L Pulse Rate 104 H 88 90 Respiratory Rate 16 Blood Pressure 96/71 L Pulse Oximetry 99 Oxygen Delivery 10/07/24 21:06 10/07/24 22:42 10/08/24 00:00 Temperature 97.8 F Pulse Rate 100 100 94 Respiratory Rate 16 Blood Pressure 102/60 Pulse Oximetry 97 Oxygen Delivery 10/08/24 04:00 10/08/24 07:00 Temperature 97.6 F Pulse Rate 87 96 Respiratory Rate 16 Blood Pressure 102/58 L Pulse Oximetry 99 Oxygen Delivery Intake/Output Intake/Output: Intake & Output 10/05/24 10/06/24 10/07/24 10/08/24 23:59 23:59 23:59 23:59 Intake Total 2650.0 1938 2620 1550 Output Total 350 300 700 Balance 2650.0 1588 2320 850 Meds/Results Medications: Active Medications Generic Name Dose Route Start Last Admin Trade Name Freq PRN Reason Stop Dose Admin Acetaminophen 650 mg 10/05/24 22:06 10/05/24 22:30 Acetaminophen 325 Mg Tablet PO 650 mg Q4H PRN Administration Mild Pain (1-3) or Fever Hydrocodone Bitart/Acetaminophen 1 tab 10/06/24 02:38 10/06/24 17:26 Hydrocodone/Acetaminophen (*Crx) 5-325 Mg Tablet PO 1 tab Q6H PRN Administration Pain Rated 4-6 Cyanocobalamin 1,000 mcg 10/06/24 09:00 10/07/24 09:35 Cyanocobalamin 1,000 Mcg Tablet PO 1,000 mcg QAM YONI Administration Diltiazem HCl 120 mg 10/06/24 09:00 10/07/24 09:57 Diltiazem Hcl Cd 120 Mg Cap.24hr PO Not Given DAILY YONI Ferrous Sulfate 325 mg 10/06/24 09:00 10/07/24 17:38 Ferrous Sulfate [address] PO 325 mg BID YONI Administration Sodium Chloride 1,000 mls @ 100 mls/hr 10/07/24 10:35 10/08/24 04:30 Normal Saline Iv IV CONT 100 mls/hr .Q10H YONI Administration Cefepime HCl 2 gm in 50 mls @ 100 mls/hr 10/07/24 14:00 10/08/24 05:49 Maxipime 2 Gm/Ns 50 Ml IVPB 100 mls/hr Q8H YONI Administration Metronidazole 500 mg in 100 mls @ 100 mls/hr 10/07/24 10:00 10/08/24 02:16 Flagyl 500 Mg/Iso Soln 100 Ml IVPB 100 mls/hr Q8H YONI Administration Vancomycin HCl 1,500 mg in 500 mls @ 250 mls/hr 10/07/24 15:00 10/07/24 17:59 Vancomycin 1,500 Mg/Ns 500 Ml IVPB Infused Q24H YONI Infusion Metoprolol Tartrate 25 mg 10/05/24 23:50 10/07/24 22:18 Metoprolol Tartrate 25 Mg Tablet PO Not Given Q12HR YONI Midodrine 10 mg 10/06/24 09:00 10/07/24 17:38 Midodrine Hcl 10 Mg Tablet PO 10 mg TID YONI Administration Morphine Sulfate 4 mg 10/06/24 02:38 Morphine Sulfate (*Crx) 4 Mg/Ml Inj IV PUSH Q4H PRN Pain Rated 7-10 Multivitamins/Minerals 1 tab 10/06/24 09:00 10/07/24 09:35 Multivitamins /C Lutein (Centrum Silver) Tablet *Bkc PO 1 tab DAILY YONI Administration Ondansetron HCl 4 mg 10/06/24 02:38 Ondansetron Inj 4 Mg/2 Ml Vial IV PUSH Q4H PRN Nausea And Vomiting Potassium Chloride 10 meq 10/06/24 09:00 10/07/24 09:35 Potassium Chloride 10 Meq Er Tablet PO 10 meq DAILY [facility] Administration Rivaroxaban 10 mg 10/06/24 17:00 10/07/24 17:38 Rivaroxaban 10 Mg Tablet PO 10 mg DAILY@1700 YONI Administration Radiology Results: ITS Impressions Chest X-Ray 10/05/24 16:00 IMPRESSION: No acute cardiopulmonary process. Labs Labs: Laboratory Results - last 24 hr 10/07/24 10/08/24 08:06 04:54 WBC 8.3 7.2 RBC 3.07 L 2.92 L Hgb 9.6 L 9.1 L Hct 29.6 L 28.5 L MCV 96.4 97.6 MCH 31.3 D 31.2 MCHC 32.4 31.9 L RDW 15.3 H 15.5 H Plt Count 301 304 MPV 9.3 9.5 Immature Gran % (Auto) 1.5 H 1.3 H Neut % (Auto) 69.5 64.3 Lymph % (Auto) 13.6 L 17.3 L [place] % (Auto) 8.7 H 10.2 H Eos % (Auto) 5.9 H 5.6 H Baso % (Auto) 0.8 1.3 H Lymph # (Auto) 1.12 1.24 [place] # (Auto) 0.7 H 0.7 H Eos # (Auto) 0.5 H 0.4 H Baso # (Auto) 0.1 0.1 Abs Immat Gran (auto) 0.12 H 0.09 H Absolute Neuts (auto) 5.7 4.6 Absolute Nucleated RBC 0.000 0.000 Nucleated RBC % 0.0 0.0 Sodium 133 L 133 L Potassium 4.0 3.9 Chloride 106 107 Carbon Dioxide 23 24 Anion Gap 4 2 L BUN 29 H 23 H Creatinine 1.20 H 1.10 H Estim Creat Clear Calc 59 64 Estimated GFR 45 L 50 L Glucose 122 H 76 Calcium 8.5 8.3 L Vancomycin Trough 21.1 H
[2024-10-08] MEDS: POTASSIUM CHLORIDE 10 MEQ ER TABLET PO (09:11)
[2024-10-08] MEDS: FERROUS SULFATE 325 MG TABLET DR PO ×2 (09:11→17:10)
[2024-10-08] MEDS: MULTIVITAMINS /C LUTEIN (CENTRUM SILVER) TABLET *BKC 1 TAB PO (09:11)
[2024-10-08] MEDS: CYANOCOBALAMIN 1,000 MCG TABLET 1000 MCG PO (09:11)
[2024-10-08] MEDS: MIDODRINE HCL 10 MG TABLET PO ×3 (09:11→17:10)
[2024-10-08] MEDS: ACETAMINOPHEN 325 MG TABLET 650 MG PO (10:15)
--- NOTE | 2024-10-08 10:25 | PCOTNOTE ---
Attempted OT evaluation. Patient declined stating it's a bad day . Will follow.
--- NOTE | 2024-10-08 10:35 | PCPTNOTE ---
Attempted PT evaluation. Patient declined stating it's a bad day . Will follow. Nursing present
[2024-10-08] MEDS: VANCOMYCIN 1,500 MG/NS 500 ML 1,500 MG/500 ML BAG 250 MG IVPB (15:01)
[2024-10-08] MEDS: RIVAROXABAN 10 MG TABLET PO (17:10)
[2024-10-09] VITALS (15 sets, daily range): BP systolic 107–124; BP diastolic 59–79; PULSE 78–130; RESP 14–20; TEMP 36.6; O2SAT 96–100
[2024-10-09] MEDS: metroNIDAZOLE 500 MG/ISO 100ML 500 MG/100 ML BAG 100 MG IVPB (02:26)
[2024-10-09] MEDS: CEFEPIME 2 GM/NS 50 ML 2 GM/50 ML BAG IVPB ×3 (06:21→21:16)
[2024-10-09] MEDS: POTASSIUM CHLORIDE 10 MEQ ER TABLET PO (08:10)
[2024-10-09] MEDS: CYANOCOBALAMIN 1,000 MCG TABLET 1000 MCG PO (08:10)
[2024-10-09] MEDS: MIDODRINE HCL 10 MG TABLET PO ×3 (08:10→17:12)
[2024-10-09] MEDS: FERROUS SULFATE 325 MG TABLET DR PO (08:10)
--- NOTE | 2024-10-09 09:00 | P.PNIM_ITS ---
Progress Note: A&P Assessment and Plan (1) Paroxysmal atrial fibrillation with RVR: Code(s): I48.0 - Paroxysmal atrial fibrillation Status: Acute (2) Sepsis: Qualifiers: Acute renal failure type: unspecified Sepsis acute organ dysfunction status: with acute organ dysfunction Sepsis type: sepsis due to unspecified organism Severe sepsis acute organ dysfunction type: acute renal failure Severe sepsis shock status: without septic shock Qualified Code(s): A41.9 - Sepsis, unspecified organism; R65.20 - Severe sepsis without septic shock; N17.9 - Acute kidney failure, unspecified Code(s): A41.9 - Sepsis, unspecified organism Status: Acute (3) Leg wound, left: Qualifiers: Encounter type: initial encounter Qualified Code(s): S81.802A - Unspecified open wound, left lower leg, initial encounter Code(s): S81.802A - Unspecified open wound, left lower leg, initial encounter Status: Acute (4) Leg wound, right: Qualifiers: Encounter type: initial encounter Qualified Code(s): S81.801A - Unspecified open wound, right lower leg, initial encounter Code(s): S81.801A - Unspecified open wound, right lower leg, initial encounter Status: Acute (5) Acute exacerbation of chronic heart failure: Code(s): I50.9 - Heart failure, unspecified Status: Acute Assessment and Plan: (6) Abnormal finding on urinalysis: Code(s): R82.90 - Unspecified abnormal findings in urine Status: Acute Assessment and Plan: (7) Acute kidney injury: Code(s): N17.9 - Acute kidney failure, unspecified Status: Acute Assessment and Plan: Will continue with fluids and monitor creatinine closely. (8) Leukocytosis: Qualifiers: Leukocytosis type: unspecified Qualified Code(s): D72.829 - Elevated white blood cell count, unspecified Code(s): D72.829 - Elevated white blood cell count, unspecified Status: Acute Assessment and Plan: Probably secondary to increased UTI. Will continue with IV antibiotics and monitor closely (9) Atrial fibrillation with rapid ventricular response: Code(s): I48.91 - Unspecified atrial fibrillation Status: Acute Assessment and Plan: (10) Morbid obesity with BMI of 60.0-69.9, adult: Code(s): E66.01 - Morbid (severe) obesity due to excess calories; Z68.44 - Body mass index [BMI] 60.0-69.9, adult Status: Chronic Assessment and Plan: Diet instructions. 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 (12) Wounds, multiple: Code(s): T07.XXXA - Unspecified multiple injuries, initial encounter Status: Chronic Plan 1. Acute Renal Failure Elevated creatinine above baseline continue IV fluids at a gentle rate Follow-up BMP 2. Acute on chronic systolic and diastolic heart failure. Lasix was held for CARIDAD Shortness of breath and generalized edema. Blood pressure improved. Takes mi dodrine at home Lasix on hold given acute kidney injury. Creatinine normalized today. Resume 40mg daily & monitor blood pressure --Resuming metoprolol today for afib rate control --Check NT-proBNP in AM --Cardiology consult 3. Septic shock Patient met sepsis criteria with fever, tachycardia, tachypnea and leukocytosis. Received fluids Patient has sepsis due to leg wounds/cellulitis bilateral lower extremities blood cultures have been obtained and are pending. Received cefepime and now patient is on vancomycin and Zosyn 10/07 Will change to vancomycin cefepime and Flagyl to avoid nephrotoxicity Blood pressure normalized on home midodrine 4. Paroxysmal afib Home meds: Cardizem 120, Metoprolol 25 q12, Xarelto 10mg daily --Resume metoprolol 12.5 q6 instead of 25mg BID today --Diltiazem on hold --Continue Xarelto 5. Bilateral lower extremity wounds Bilateral lower extremity edema affecting skin integrity and increasing risk of wounds. Erythema swelling, tender bilateral lower extremities, multiple ulcers with purulent discharge UOA Antibiotics see above Cellulitis improving, continue wound care Time Spent With Patient Time: 68 minutes Subjective Date/time seen: 10/09/24 09:00 Interval history: Feeling slightly short of breath when speaking, has generalized edema. 07/21 Echo showed LVEF 55-60%, moderate to severe mitral and tricuspid regurg, pulmonary HTN Metoprolol has been on hold, restarting today, changed to 12.5 q6. VSS, BP 107/73 Hospital course: 63 year old female hx morbid obesity, afib on AC, moderate- severe tricuspid regurg, right heart failure, admitted for nonhealing wounds and cellulitis. In the ED she was in afib with RVR and septic with a temperature of 100.9. Treated with a cardizem drip, and empiric Cefepime/Vancomycin/Flagyl. Cardiology was consulted for additional recommendations for management of heart failure. Review of Systems Review of Systems: 12 systems were reviewed with pertinent positives and negatives per HPI. Except as documented in the HPI, all other systems were reviewed and are negative. Exam Narrative: GENERAL: Pleasant, in no acute distress. Well-nourished. - EYES: EOMI. Anicteric. - HENT: Moist mucous membranes. - LUNGS: Clear to auscultation bilateral ly, no wheezing, rhonchi, or rales. - CARDIOVASCULAR: Irregular irregular r hythm,. No murmur. No JVD. - ABDOMEN: Soft, non-tender and non-dist ended. No palpable masses. - EXTREMITIES: No edema. Peripheral puls es 2+. Non-tender. - NEUROLOGIC: No focal neurological defi cits. CN II-XII grossly intact. - PSYCHIATRIC: Awake, Alert and oriented x 3. Appropriate mood and affect. - SKIN: Right knee, swelling, tender bi lateral lower extremities, crusting to bilateral legs, multiple ulcers with draining purulent, malodorous fluid - LYMPH: No cervical lymphadenopathy. - LYMPH: No cervical lymphadenopathy. Const: Other: Super morbidly obese, appears stated age, no acute distress, lying flat in bed HENMT: Other: Head is normocephalic atraumatic, mucous membranes are moist, crowded posterior oropharynx, good dentition Eyes: Other: Pupils are equal and reactive, no scleral icterus, no conjunctival pallor Neck: Other: Large neck circumference, no obvious JVD, supple Resp: Other: Clear to auscultation bilaterally anterior hurt, no increased work of breathing Cardio: Other: Distant heart sounds, irregularly irregular, tachycardic, no JVD, 2+ bilateral radial pulses, palpable pedal pulses GI: Other: Obese, soft, nontender, normoactive bowel sounds Skin: Other: Numerous bilateral lower extremity wounds mostly below the knee and above the ankle, please see nursing documentation for photos, chronic dark skin changes of bilateral lower extremities consistent with history of venous stasis Neuro: Other: Alert orient x4, speech is clear, no facial asymmetry, moves all extremities equally, no localizing neurologic deficits noted during conversation Extrem: Other: Marked lymphedema and lymphedema changes with multiple lower extremity wounds, equal strength in all extremities, patient is able to stand up and ambulate with maximal effort Psych: Other: Appropriate mood and affect, pleasant, judgment and insight intact Objective Data Vital Signs Vital Signs: Vital Signs - 24 hr 10/08/24 09:09 10/08/24 09:11 10/08/24 09:11 Temperature Pulse Rate 101 H 101 H Respiratory Rate Blood Pressure Pulse Oximetry 99 Oxygen Delivery Room Air 10/08/24 12:00 10/08/24 15:43 10/08/24 16:00 Temperature 97.1 F L Pulse Rate 89 94 89 Respiratory Rate 18 Blood Pressure 94/58 L Pulse Oximetry 99 Oxygen Delivery 10/08/24 17:01 10/08/24 20:00 10/08/24 20:51 Temperature 98 F 97.6 F Pulse Rate 94 84 87 Respiratory Rate 20 16 Blood Pressure 94/66 L 98/74 L Pulse Oximetry 98 96 Oxygen Delivery 10/08/24 21:11 10/09/24 00:00 10/09/24 04:00 Temperature Pulse Rate 86 78 88 Respiratory Rate Blood Pressure Pulse Oximetry Oxygen Delivery 10/09/24 07:17 10/09/24 08:11 10/09/24 08:12 Temperature 97.8 F Pulse Rate 107 H 93 Respiratory Rate 16 Blood Pressure 110/59 L 107/71 Pulse Oximetry 98 100 Oxygen Delivery Room Air 10/09/24 08:15 Temperature Pulse Rate Respiratory Rate Blood Pressure Pulse Oximetry 100 Oxygen Delivery Room Air Intake/Output Intake/Output: Intake & Output 10/06/24 10/07/24 10/08/24 10/09/24 23:59 23:59 23:59 23:59 Intake Total 1938 2620 2980 500 Output Total 188 578 0988 500 Balance 1588 2320 1730 0 Meds/Results Medications: Active Medications Generic Name Dose Route Start Last Admin Trade Name Freq PRN Reason Stop Dose Admin Acetaminophen 650 mg 10/05/24 22:06 10/08/24 10:15 Acetaminophen 325 Mg Tablet PO 650 mg Q4H PRN Administration Mild Pain (1-3) or Fever Hydrocodone Bitart/Acetaminophen 1 tab 10/06/24 02:38 10/06/24 17:26 Hydrocodone/Acetaminophen (*Crx) 5-325 Mg Tablet PO 1 tab Q6H PRN Administration Pain Rated 4-6 Cyanocobalamin 1,000 mcg 10/06/24 09:00 10/09/24 08:10 Cyanocobalamin 1,000 Mcg Tablet PO 1,000 mcg QAM YONI Administration Diltiazem HCl 120 mg 10/06/24 09:00 10/07/24 09:57 Diltiazem Hcl Cd 120 Mg Cap.24hr PO Not Given DAILY YONI Ferrous Sulfate 325 mg 10/06/24 09:00 10/09/24 08:10 Ferrous Sulfate [address] PO 325 mg BID YONI Administration Cefepime HCl 2 gm in 50 mls @ 100 mls/hr 10/07/24 14:00 10/09/24 06:21 Maxipime 2 Gm/Ns 50 Ml IVPB 100 mls/hr Q8H YONI Administration Metronidazole 500 mg in 100 mls @ 100 mls/hr 10/07/24 10:00 10/09/24 03:26 Flagyl 500 Mg/Iso Soln 100 Ml IVPB Infused Q8H YONI Infusion Vancomycin HCl 1,500 mg in 500 mls @ 250 mls/hr 10/07/24 15:00 10/08/24 17:01 Vancomycin 1,500 Mg/Ns 500 Ml IVPB Infused Q24H YONI Infusion Metoprolol Tartrate 25 mg 10/05/24 23:50 10/08/24 21:11 Metoprolol Tartrate 25 Mg Tablet PO Not Given Q12HR YONI Midodrine 10 mg 10/06/24 09:00 10/09/24 08:10 Midodrine Hcl 10 Mg Tablet PO 10 mg TID YONI Administration Morphine Sulfate 4 mg 10/06/24 02:38 Morphine Sulfate (*Crx) 4 Mg/Ml Inj IV PUSH Q4H PRN Pain Rated 7-10 Multivitamins/Minerals 1 tab 10/06/24 09:00 10/08/24 09:11 Multivitamins /C Lutein (Centrum Silver) Tablet *Bkc PO 1 tab DAILY YONI Administration Ondansetron HCl 4 mg 10/06/24 02:38 Ondansetron Inj 4 Mg/2 Ml Vial IV PUSH Q4H PRN Nausea And Vomiting Potassium Chloride 10 meq 10/06/24 09:00 10/09/24 08:10 Potassium Chloride 10 Meq Er Tablet PO 10 meq DAILY YONI Administration Rivaroxaban 10 mg 10/06/24 17:00 10/08/24 17:10 Rivaroxaban 10 Mg Tablet PO 10 mg DAILY@1700 YONI Administration Radiology Results: ITS Impressions Chest X-Ray 10/05/24 16:00 IMPRESSION: No acute cardiopulmonary process. Labs Labs: Laboratory Results - last 24 hr 02/08/24 02/08/24 02/08/24 19:32 20:35 23:40 WBC 12.5 H RBC 4.05 L Hgb 12.6 Hct 38.2 MCV 94.3 MCH 31.1 MCHC 33.0 RDW 15.5 H Plt Count 291 MPV 10.8 H Immature Gran % (Auto) 0.3 Neut % (Auto) 79.6 H Lymph % (Auto) 10.3 L [place] % (Auto) 9.2 H Eos % (Auto) 0.2 Baso % (Auto) 0.4 Lymph # (Auto) 1.28 [place] # (Auto) 1.1 H Eos # (Auto) 0.0 Baso # (Auto) 0.1 Abs Immat Gran (auto) 0.04 H Absolute Neuts (auto) 9.9 H Absolute Nucleated RBC 0.000 Nucleated RBC % 0.0 PT 14.9 H INR 1.1 APTT 28.5 Sodium 139 Potassium 3.9 Chloride 106 Carbon Dioxide 25 Anion Gap 8 BUN 17 Creatinine 1.10 H Estim Creat Clear Calc 71 Estimated GFR 50 L Glucose 96 Lactic Acid 1.9 Calcium 9.4 Total Bilirubin 1.5 H AST 25 ALT 18 Alkaline Phosphatase 126 Total Protein 8.0 Albumin 4.0 Lipase 118 Procalcitonin 0.1 Urine Color Dark yellow Urine Appearance Cloudy H Urine pH 5.5 Ur Specific [place] 1.019 Urine Protein 1+ H Urine Glucose (UA) Negative Urine Ketones Trace H Ur Blood (Man) 3+ H Urine Nitrate Negative Urine Bilirubin 1+ H Urine Urobilinogen 1.0 Add Ur Microanalysis Reviewed Leukocyte Esterase Rfl Trace H Urine RBC >100 H Urine WBC 0-5 Ur Squamous Epith Cells Few Calcium Oxalate Crystal Present Urine Bacteria None seen Urine Casts 11-20 Urine Mucus Present Urine Yeast (Budding) Present H 02/09/24 05:46 WBC 10.9 H RBC 3.47 L Hgb 10.7 L Hct 34.3 L MCV 98.8 MCH 30.8 MCHC 31.2 L RDW 15.6 H Plt Count 289 MPV 9.4 Immature Gran % (Auto) Neut % (Auto) Lymph % (Auto) [place] % (Auto) Eos % (Auto) Baso % (Auto) Lymph # (Auto) [place] # (Auto) Eos # (Auto) Baso # (Auto) Abs Immat Gran (auto) Absolute Neuts (auto) Absolute Nucleated RBC Nucleated RBC % PT INR APTT Sodium 139 Potassium 3.5 Chloride 111 H Carbon Dioxide 20 L Anion Gap 8 BUN 17 Creatinine 0.90 Estim Creat Clear Calc 80 Estimated GFR > 60 Glucose 92 Lactic Acid Calcium 8.6 Total Bilirubin AST ALT Alkaline Phosphatase Total Protein Albumin Lipase Procalcitonin Urine Color Urine Appearance Urine pH Ur Specific [place] Urine Protein Urine Glucose (UA) Urine Ketones Ur Blood (Man) Urine Nitrate Urine Bilirubin Urine Urobilinogen Add Ur Microanalysis Leukocyte Esterase Rfl Urine RBC Urine WBC Ur Squamous Epith Cells Calcium Oxalate Crystal Urine Bacteria Urine Casts Urine Mucus Urine Yeast (Budding) Quality VTE Prophylaxis VTE prophylaxis: pharmacologic ordered (Continue home Xarelto) Hospitalist MIPS Advance Care Plan I have confirmed that the patient's Advanced Care Plan is present, code status is documented, or surrogate decision maker is listed in patient medical record.: Yes Medication Reconciliation I have utilized all available resources to obtain, update and review the patients current medications (includes all prescriptions, OTC, herbals, cannabis, and nutritional supplements).: Yes
[2024-10-09 10:11] LABS: Basophils Absolute Auto 0.1 K/mm3 (0.0-0.1); Basophils Percent Auto 1.1 % (0.2-1.2); Eosinophils Absolute Auto 0.4 K/mm3 (0-0.3); Hematocrit 33.9 % (37.0-47.0); Hemoglobin 10.5 g/dL (12.0-15.0); Immature Granulocyte Absolute 0.09 K/mm3 (0.00-0.031); Immature Granulocyte Percent A 1.3 % (0-0.5); Lymphocytes Absolute Auto 0.98 K/mm3 (0.9-3.2); Lymphocytes Percent Auto 13.7 % (18.3-44.2); Mean Corpuscular Hemoglobin 30.5 pg (26-34); Mean Corpuscular Volume 98.5 fl (80-100); Mean Platelet Volume 9.1 fl (7.4-10.4); Monocytes Absolute Auto 0.6 K/mm3 (0.1-0.6); Monocytes Percent Auto 8.7 % (2.6-8.5); Neutrophils Percent Auto 70.2 % (45.5-73.1); Platelet Count Result 357 k/mm3 (150-375); Red Blood Count 3.44 M/mm3 (4.2-5.4); Red Cell Distribution Width 15.4 % (11.5-14.5); White Blood Count 7.2 K/mm3 (4.5-10.0)
[2024-10-09 10:32] LABS: Anion Gap 5 mmol/L (4-12); Blood Urea Nitrogen 19 mg/dL (7-17); Calcium 8.8 mg/dL (8.4-10.2); Carbon Dioxide 23 mmol/L (22-30); Chloride 108 mmol/L (98-107); Estimated CRCL calculation 71 ml/min; Estimated Glomerular Filt Rate 56; Glucose 77 mg/dL (65-110); Sodium 136 mmol/L (137-145)
--- NOTE | 2024-10-09 10:59 | P.CONCA_ITS ---
Assessment and Plan Assessment and plan (1) Paroxysmal atrial fibrillation with RVR: Code(s): I48.0 - Paroxysmal atrial fibrillation Status: Acute Assessment and Plan: Chronic atrial fibrillation being managed with rate control and anticoagulation. Since she does become quite symptomatic with RVR, I would recommend not discontinuing or holding her rate controlling agents because of mild, asymptomatic hypotension. I am going to resume her diltiazem. I discussed with her that at some point in the near future she needs to visit her EP doctor at [facility] to talk about better fdc management strategies. Continue anticoagulation. (2) Acute exacerbation of chronic heart failure: Code(s): I50.9 - Heart failure, unspecified Status: Acute Assessment and Plan: Clinically she does not appear to be in decompensated heart failure, though her volume status is difficult to assess due to her morbid obesity/body habitus. Chest Xray on admission was clear. Does not require any aggressive diuresis or other medication adjustments at this time. Plan Cardiology will sign off. Please call with questions. History of Present Illness History of Present Illness Consult date/time: 10/09/24 10:59 Requesting physician: Hodan Zavala APRN Consult reason: congestive heart failure Reason For Visit: Atrial fibrillation, RVR, Sepsis, Infected bilater Narrative: Pili Forrester is a 63-year-old female with past medical history significant for atrial flutter status post caval tricuspid isthmus ablation at [facility] 2012, paroxysmal atrial fibrillation, intolerance to flecainide, morbid obesity, history of cervical cancer who is admitted for treatment of lower extremity cellulitis and sepsis. Cardiology is consulted for congestive heart failure. Patient states she was having significant dizziness at home which was the main symptom that prompted her to come to the hospital. She reports having a heart rate in the 180's per EMS en route to the hospital. Heart rates have been generally controlled while here receiving treatment for her leg wounds. Patient states she is feeling better today but does complain of fatigue and weakness. Review of Systems 2 Review of Systems: All systems reviewed & are unremarkable except as noted in HPI and below PMFSH Past Medical History Medical History Iron deficiency anemia Chronic anticoagulation Moderate tricuspid valve regurgitation Severe mitral valve regurgitation 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 Morbid obesity with BMI of 60.0-69.9, adult Cervical cancer (2011) Paroxysmal atrial fibrillation Surgical History Surgical History History of foot surgery Bilateral foot surgery when she was young History of total abdominal hysterectomy and bilateral salpingo-oophorectomy (2011) Family History Family History Mother CKD (chronic kidney disease), Onset Age: 18 Glomerular nephritis Father Lung cancer Sibling Non-Hodgkin lymphoma Recurrent kidney stones Social History Social History Social History: Surrogate medical decision maker: Kishan Forrester, brother. Code status: Full Code. However she would not want long-term ventilation or feeding tube. Smoking status: Never smoker Second hand tobacco smoke exposure: No Alcohol intake: never Substance use: never Substance use type: does not use Do You Feel Safe in your Home?: Yes Lack of Transportation: No Lack of Food: Never True Current Housing: I Have Housing Concerned About Future Housing: No Difficulty Paying Gas/Electric Bills: No Difficulty Paying for Meds: No Currently Unemployed: No Education: Master's Degree or Higher Difficulty w/ Childcare or Family Care: No Additional living arrangements comments: Lives in her own home in [place] with her boxer named Dana. No children. 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: No Meds Home Medications and Allergies Home Medications ?Medication ?Instructions ?Recorded ?Confirmed ?Type multivit with minerals-iron 18 1 tablet PO DAILY 02/09/24 10/05/24 History mg-folic ac 400 mcg-vit K 25 mcg tablet (Adults Multivitamin) metoprolol tartrate 25 mg tablet 25 mg PO Q12HR #60 tabs 02/12/24 10/05/24 Rx diltiazem HCl 120 mg 120 mg PO DAILY #60 caps 04/18/24 10/05/24 Rx capsule,extended release 24 hr (Cardizem CD) cyanocobalamin (vitamin B-12) 1,000 mcg PO QAM #30 tabs 07/26/24 10/05/24 Rx 1,000 mcg tablet (Vitamin B-12) midodrine 10 mg tablet 10 mg PO TID #90 tabs 07/26/24 10/05/24 Rx rivaroxaban 20 mg tablet (Xarelto) 10 mg (1/2 x 20 mg) PO DAILY@1700 07/26/24 10/05/24 Rx #30 tabs ferrous sulfate 325 mg (65 mg 325 mg PO BID #14 tabs 09/14/24 10/05/24 Rx iron) tablet,delayed release furosemide 40 mg tablet 40 mg PO DAILY #30 tabs 09/14/24 10/05/24 Rx potassium chloride 10 mEq 10 meq PO BID #60 caps 09/14/24 10/05/24 Rx capsule,extended release Allergies Allergy/AdvReac Type Severity Reaction Status Date / Time codeine Allergy Unknown Other Verified 10/05/24 23:35 diazepam Allergy Unknown Other Verified 10/05/24 23:35 Vital Signs Vital Signs - 24 hr 10/08/24 12:00 10/08/24 15:43 10/08/24 16:00 Temperature 36.2 C L Pulse Rate 89 94 89 Respiratory Rate 18 Blood Pressure 94/58 L Pulse Oximetry 99 Oxygen Delivery 10/08/24 17:01 10/08/24 20:00 10/08/24 20:51 Temperature 36.6 C 36.4 C Pulse Rate 94 84 87 Respiratory Rate 20 16 Blood Pressure 94/66 L 98/74 L Pulse Oximetry 98 96 Oxygen Delivery 10/08/24 21:11 10/09/24 00:00 10/09/24 04:00 Temperature Pulse Rate 86 78 88 Respiratory Rate Blood Pressure Pulse Oximetry Oxygen Delivery 10/09/24 07:17 10/09/24 08:00 10/09/24 08:11 Temperature 36.6 C Pulse Rate 107 H 89 Respiratory Rate 16 Blood Pressure 110/59 L Pulse Oximetry 98 Oxygen Delivery Room Air 10/09/24 08:12 10/09/24 08:15 10/09/24 09:51 Temperature Pulse Rate 93 Respiratory Rate Blood Pressure 107/71 Pulse Oximetry 100 100 Oxygen Delivery Room Air Room Air Exam 2 Const: General: comfortable, no acute distress, alert and awake O rientation/consciousness: patient oriented x3 Other: Morbidly obese HENMT: Head: normal to inspection Eyes: General: appearance normal, both eyes and all related structures P upils: Equal, round and reactive pupils present Neck: Neck: normal visual inspection and supple Carotids: normal carotid upstroke Resp: Effort & Inspection: normal respiratory effort Auscultation: clear to auscultation bilaterally and diminished lung sounds Cardio: Rate: regular rate Rhythm: abnormal rhythm irregularly irregular Heart sounds: S1 normal heart sound present, S2 normal heart sound present and no murmurs GI: Auscultation: normal bowel sounds Skin: General skin exam: normal color Neuro: General: patient oriented x3 Cranial nerves: Yes Equal, round and reactive pupils present Extrem: General: abnormal to inspection Other: wounds and erythema bilateral lower extremities Psych: Appearance: grossly normal Mental Status: mental status grossly normal Results Labs and Meds 10/09/24 09:51 10/09/24 09:51 Lab results: CBC 10/09/24 Range/Units 09:51 WBC 7.2 (4.5-10.0) K/mm3 RBC 3.44 L (4.2-5.4) M/mm3 Hgb 10.5 L (12.0-15.0) g/dL Hct 33.9 L (37.0-47.0) % Plt Count 357 (150-375) k/mm3 Lymph # (Auto) 0.98 (0.9-3.2) K/mm3 Ocean # (Auto) 0.6 (0.1-0.6) K/mm3 Eos # (Auto) 0.4 H (0-0.3) K/mm3 Baso # (Auto) 0.1 (0.0-0.1) K/mm3 Comprehensive Metabolic Panel 10/09/24 Range/Units 09:51 Sodium 136 L (137-145) mmol/L Potassium 4.0 (3.4-5.0) mmol/L Chloride 108 H (98-107) mmol/L Carbon Dioxide 23 (22-30) mmol/L BUN 19 H (7-17) mg/dL Creatinine 1.00 (0.7-1.0) mg/dL Glucose 77 (65-110) mg/dL Calcium 8.8 (8.4-10.2) mg/dL Intake and Output 10/08/24 10/09/24 10/09/24 23:59 07:59 15:59 Intake Total 650 500 Output Total 550 500 Balance 100 0 Intake: IV 650 100 Cefepime 2 gm/Ns 50 ml 2 gm In 50 50 ml @ 100 mls/hr IVPB Q8H [facility] Rx#:[id number] Vancomycin 1,500 mg/Ns 500 ml 1 500 ,500 mg In 500 ml @ 250 mls/hr IVPB Q24H [facility] Rx#:[id number] metroNIDAZOLE 500 MG/ISO 100ML 100 100 500 mg In 100 ml @ 100 mls/hr IVPB Q8H [facility] Rx#:[id number] Oral 400 Output: Catheter Urine 550 500 External/Condom 550 500 Other: # Incontinent Voids 2
[2024-10-09] MEDS: METOPROLOL TARTRATE 12.5 MG TABLET PO ×3 (11:00→21:17)
[2024-10-09] MEDS: EUCERIN CREAM 120 GM JAR 1 APPLIC TOPICAL (11:01)
[2024-10-09] MEDS: metroNIDAZOLE 500 MG TABLET PO ×2 (13:39→21:19)
[2024-10-09] MEDS: ACETAMINOPHEN 325 MG TABLET 650 MG PO (14:17)
[2024-10-09 14:49] LABS: Vancomycin Trough 17.8 ug/mL (10.0-20.0)
[2024-10-09] MEDS: VANCOMYCIN 1,500 MG/NS 500 ML 1,500 MG/500 ML BAG 250 MG IVPB (15:37)
[2024-10-09] MEDS: FUROSEMIDE 40 MG TABLET PO (15:37)
[2024-10-09] MEDS: RIVAROXABAN 10 MG TABLET PO (17:12)
[2024-10-10] VITALS (15 sets, daily range): BP systolic 100–122; BP diastolic 61–84; PULSE 0–93; RESP 20; TEMP 36.2–36.6; O2SAT 95–98
[2024-10-10] MEDS: CEFEPIME 2 GM/NS 50 ML 2 GM/50 ML BAG IVPB ×3 (05:23→20:10)
[2024-10-10] MEDS: METOPROLOL TARTRATE 12.5 MG TABLET PO ×4 (05:24→20:10)
[2024-10-10] MEDS: metroNIDAZOLE 500 MG TABLET PO ×3 (05:25→20:10)
[2024-10-10 05:30] LABS: Anion Gap 4 mmol/L (4-12); Blood Urea Nitrogen 18 mg/dL (7-17); Calcium 8.5 mg/dL (8.4-10.2); Carbon Dioxide 23 mmol/L (22-30); Chloride 109 mmol/L (98-107); Estimated CRCL calculation 79 ml/min; Estimated Glomerular Filt Rate > 60; Glucose 109 mg/dL (65-110); Magnesium 2.3 mg/dL (1.6-2.3); Potassium 3.9 mmol/L (3.4-5.0); Sodium 136 mmol/L (137-145)
[2024-10-10] MEDS: POTASSIUM CHLORIDE 10 MEQ ER TABLET PO (09:27)
[2024-10-10] MEDS: CYANOCOBALAMIN 1,000 MCG TABLET 1000 MCG PO (09:27)
[2024-10-10] MEDS: MIDODRINE HCL 10 MG TABLET PO ×3 (09:27→18:49)
[2024-10-10] MEDS: FUROSEMIDE 40 MG TABLET PO (09:27)
[2024-10-10] MEDS: MULTIVITAMINS /C LUTEIN (CENTRUM SILVER) TABLET *BKC 1 TAB PO (09:27)
[2024-10-10] MEDS: EUCERIN CREAM 120 GM JAR 1 APPLIC TOPICAL (09:28)
[2024-10-10] MEDS: VANCOMYCIN 1,500 MG/NS 500 ML 1,500 MG/500 ML BAG 250 MG IVPB (14:30)
[2024-10-10] MEDS: ACETAMINOPHEN 325 MG TABLET 650 MG PO (14:34)
--- NOTE | 2024-10-10 16:55 | P.PNIM_ITS ---
Progress Note: A&P Assessment and Plan (1) Paroxysmal atrial fibrillation with RVR: Code(s): I48.0 - Paroxysmal atrial fibrillation Status: Acute (2) Sepsis: Qualifiers: Acute renal failure type: unspecified Sepsis acute organ dysfunction status: with acute organ dysfunction Sepsis type: sepsis due to unspecified organism Severe sepsis acute organ dysfunction type: acute renal failure Severe sepsis shock status: without septic shock Qualified Code(s): A41.9 - Sepsis, unspecified organism; R65.20 - Severe sepsis without septic shock; N17.9 - Acute kidney failure, unspecified Code(s): A41.9 - Sepsis, unspecified organism Status: Acute (3) Leg wound, left: Qualifiers: Encounter type: initial encounter Qualified Code(s): S81.802A - Unspecified open wound, left lower leg, initial encounter Code(s): S81.802A - Unspecified open wound, left lower leg, initial encounter Status: Acute (4) Leg wound, right: Qualifiers: Encounter type: initial encounter Qualified Code(s): S81.801A - Unspecified open wound, right lower leg, initial encounter Code(s): S81.801A - Unspecified open wound, right lower leg, initial encounter Status: Acute (5) Acute exacerbation of chronic heart failure: Code(s): I50.9 - Heart failure, unspecified Status: Acute Assessment and Plan: (6) Abnormal finding on urinalysis: Code(s): R82.90 - Unspecified abnormal findings in urine Status: Acute Assessment and Plan: (7) Acute kidney injury: Code(s): N17.9 - Acute kidney failure, unspecified Status: Acute Assessment and Plan: Will continue with fluids and monitor creatinine closely. (8) Leukocytosis: Qualifiers: Leukocytosis type: unspecified Qualified Code(s): D72.829 - Elevated white blood cell count, unspecified Code(s): D72.829 - Elevated white blood cell count, unspecified Status: Acute Assessment and Plan: Probably secondary to increased UTI. Will continue with IV antibiotics and monitor closely (9) Atrial fibrillation with rapid ventricular response: Code(s): I48.91 - Unspecified atrial fibrillation Status: Acute Assessment and Plan: (10) Morbid obesity with BMI of 60.0-69.9, adult: Code(s): E66.01 - Morbid (severe) obesity due to excess calories; Z68.44 - Body mass index [BMI] 60.0-69.9, adult Status: Chronic Assessment and Plan: Diet instructions. 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 (12) Wounds, multiple: Code(s): T07.XXXA - Unspecified multiple injuries, initial encounter Status: Chronic Plan 1. Acute Renal Failure Elevated creatinine above baseline continue IV fluids at a gentle rate Follow-up BMP 2. Acute on chronic systolic and diastolic heart failure. Lasix was held for CARIDAD Shortness of breath and generalized edema. Blood pressure improved. Takes mi dodrine at home Lasix was on hold given acute kidney injury. Creatinine normalized today. Resume 40mg daily & monitor blood pressure & creatinine 07/21 Echo showed LVEF 55-60%, moderate to severe mitral and tricuspid regurg, pulmonary HTN --Resumed metoprolol 10/09 for afib rate control --Check NT-proBNP in AM --Cardiology consulted 10/09, signed off 3. Septic shock Patient met sepsis criteria with fever, tachycardia, tachypnea and leukocytosis. Temp 100.9 on 10/05. Received fluids Patient has sepsis due to leg wounds/cellulitis bilateral lower extremities blood cultures have been obtained and are pending. Received cefepime and now patient is on vancomycin and Zosyn 10/07 Continue vancomycin cefepime and Flagyl to avoid nephrotoxicity Blood pressure normalized on home midodrine 4. Paroxysmal afib Home meds: Cardizem 120, Metoprolol 25 q12, Xarelto 10mg daily --Resume metoprolol 12.5 q6 instead of 25mg BID today --Diltiazem on hold, restart as 30 q6 and monitor --Continue Xarelto 5. Bilateral lower extremity wounds Bilateral lower extremity edema affecting skin integrity and increasing risk of wounds. Erythema swelling, tender bilateral lower extremities, multiple ulcers with purulent discharge UOA Antibiotics see above Cellulitis improving, continue wound care Time Spent With Patient Time: 58 minutes Subjective Date/time seen: 10/10/24 16:55 Interval history: Feeling slightly short of breath when speaking, has generalized edema. Tolerating metoprolol and furosemide. Add diltiazem in divided doses. VSS, BP 107/73 Hospital course: 63 year old female hx morbid obesity, afib on AC, moderate- severe tricuspid regurg, right heart failure, admitted for nonhealing wounds and cellulitis. In the ED she was in afib with RVR and septic with a temperature of 100.9. Treated with a cardizem drip, and empiric Cefepime/Vancomycin/Flagyl. Cardiology was consulted for additional recommendations for management of heart failure. Review of Systems Review of Systems: 12 systems were reviewed with pertinent positives and negatives per HPI. Except as documented in the HPI, all other systems were reviewed and are negative. Exam Narrative: GENERAL: Pleasant, in no acute distress. Well-nourished. - EYES: EOMI. Anicteric. - HENT: Moist mucous membranes. - LUNGS: Clear to auscultation bilateral ly, no wheezing, rhonchi, or rales. - CARDIOVASCULAR: Irregular irregular r hythm,. No murmur. No JVD. - ABDOMEN: Soft, non-tender and non-dist ended. No palpable masses. - EXTREMITIES: No edema. Peripheral puls es 2+. Non-tender. - NEUROLOGIC: No focal neurological defi cits. CN II-XII grossly intact. - PSYCHIATRIC: Awake, Alert and oriented x 3. Appropriate mood and affect. - SKIN: Right knee, swelling, tender bi lateral lower extremities, crusting to bilateral legs, wounds wrapped - LYMPH: No cervical lymphadenopathy. - LYMPH: No cervical lymphadenopathy. Objective Data Vital Signs Vital Signs: Vital Signs - 24 hr 10/09/24 17:11 10/09/24 17:12 10/09/24 19:37 Temperature 97.8 F Pulse Rate 130 H 87 Respiratory Rate 20 Blood Pressure 124/74 113/79 Pulse Oximetry 98 Oxygen Delivery 10/09/24 19:43 10/09/24 20:00 10/10/24 00:00 Temperature Pulse Rate 87 89 0 L Respiratory Rate 20 Blood Pressure Pulse Oximetry 98 Oxygen Delivery Room Air 10/10/24 04:00 10/10/24 04:27 10/10/24 07:54 Temperature 97.2 F L Pulse Rate 82 60 Respiratory Rate 20 Blood Pressure 117/84 Pulse Oximetry 97 95 Oxygen Delivery Room Air 10/10/24 08:00 10/10/24 09:26 10/10/24 09:27 Temperature Pulse Rate 76 90 90 Respiratory Rate Blood Pressure 122/68 Pulse Oximetry Oxygen Delivery 10/10/24 12:00 10/10/24 14:00 Temperature 97.8 F Pulse Rate 87 93 Respiratory Rate 20 Blood Pressure 107/64 Pulse Oximetry 98 Oxygen Delivery Intake/Output Intake/Output: Intake & Output 10/07/24 10/08/24 10/09/24 10/10/24 23:59 23:59 23:59 23:59 Intake Total 2620 2980 2130 470 Output Total 300 4474 306 8555 Balance 2320 1730 1630 -1230 Meds/Results Medications: Active Medications Generic Name Dose Route Start Last Admin Trade Name Freq PRN Reason Stop Dose Admin Acetaminophen 650 mg 10/05/24 22:06 10/10/24 14:34 Acetaminophen 325 Mg Tablet PO 650 mg Q4H PRN Administration Mild Pain (1-3) or Fever Hydrocodone Bitart/Acetaminophen 1 tab 10/06/24 02:38 10/06/24 17:26 Hydrocodone/Acetaminophen (*Crx) 5-325 Mg Tablet PO 1 tab Q6H PRN Administration Pain Rated 4-6 Cyanocobalamin 1,000 mcg 10/06/24 09:00 10/10/24 09:27 Cyanocobalamin 1,000 Mcg Tablet PO 1,000 mcg QAM YONI Administration Diltiazem HCl 120 mg 10/06/24 09:00 10/07/24 09:57 Diltiazem Hcl Cd 120 Mg Cap.24hr PO Not Given DAILY YONI Ferrous Sulfate 325 mg 10/06/24 09:00 10/09/24 08:10 Ferrous Sulfate [address] PO 325 mg BID YONI Administration Furosemide 40 mg 10/09/24 14:20 10/10/24 09:27 Furosemide 40 Mg Tablet PO 40 mg DAILY YONI Administration Cefepime HCl 2 gm in 50 mls @ 100 mls/hr 10/07/24 14:00 10/10/24 14:25 Maxipime 2 Gm/Ns 50 Ml IVPB Infused Q8H YONI Infusion Vancomycin HCl 1,500 mg in 500 mls @ 250 mls/hr 10/07/24 15:00 10/10/24 14:30 Vancomycin 1,500 Mg/Ns 500 Ml IVPB 250 mls/hr Q24H YONI Administration Metoprolol Tartrate 12.5 mg 10/09/24 10:00 10/10/24 09:27 Metoprolol Tartrate 12.5 Mg Tablet PO 12.5 mg Q6H YONI Administration Metronidazole 500 mg 10/09/24 14:00 10/10/24 13:55 Metronidazole 500 Mg Tablet PO 500 mg Q8HR YONI Administration Midodrine 10 mg 10/06/24 09:00 10/10/24 13:55 Midodrine Hcl 10 Mg Tablet PO 10 mg TID YONI Administration Morphine Sulfate 4 mg 10/06/24 02:38 Morphine Sulfate (*Crx) 4 Mg/Ml Inj IV PUSH Q4H PRN Pain Rated 7-10 Multi-Ingred Cream/Lotion/Oil/Oint 1 applic 10/09/24 10:00 10/10/24 09:28 Eucerin Cream 120 Gm Jar TOPICAL 1 applic DAILY YONI Administration Multivitamins/Minerals 1 tab 10/06/24 09:00 10/10/24 09:27 Multivitamins /C Lutein (Centrum Silver) Tablet *Bkc PO 1 tab DAILY YONI Administration Ondansetron HCl 4 mg 10/06/24 02:38 Ondansetron Inj 4 Mg/2 Ml Vial IV PUSH Q4H PRN Nausea And Vomiting Potassium Chloride 10 meq 10/06/24 09:00 10/10/24 09:27 Potassium Chloride 10 Meq Er Tablet PO 10 meq DAILY YONI Administration Rivaroxaban 10 mg 10/06/24 17:00 10/09/24 17:12 Rivaroxaban 10 Mg Tablet PO 10 mg DAILY@1700 YONI Administration Radiology Results: ITS Impressions Chest X-Ray 10/05/24 16:00 IMPRESSION: No acute cardiopulmonary process. Labs Labs: Laboratory Results - last 24 hr 10/10/24 04:39 Sodium 136 L Potassium 3.9 Chloride 109 H Carbon Dioxide 23 Anion Gap 4 BUN 18 H Creatinine 0.90 Estim Creat Clear Calc 79 Estimated GFR > 60 Glucose 109 Calcium 8.5 Magnesium 2.3 Quality VTE Prophylaxis VTE prophylaxis: pharmacologic ordered (Continue home Xarelto) Hospitalist MIPS Advance Care Plan I have confirmed that the patient's Advanced Care Plan is present, code status is documented, or surrogate decision maker is listed in patient medical record.: Yes Medication Reconciliation I have utilized all available resources to obtain, update and review the patients current medications (includes all prescriptions, OTC, herbals, cannabis, and nutritional supplements).: Yes
[2024-10-10] MEDS: RIVAROXABAN 10 MG TABLET PO (18:49)
[2024-10-10] MEDS: dilTIAZem HCL 30 MG TABLET PO ×2 (18:49→23:56)
[2024-10-11] VITALS (17 sets, daily range): BP systolic 91–112; BP diastolic 50–64; PULSE 70–89; RESP 16–24; TEMP 36.4–36.7; O2SAT 96–98
[2024-10-11] MEDS: metroNIDAZOLE 500 MG TABLET PO ×2 (04:59→13:04)
[2024-10-11] MEDS: METOPROLOL TARTRATE 12.5 MG TABLET PO ×4 (04:59→22:14)
[2024-10-11] MEDS: dilTIAZem HCL 30 MG TABLET PO ×2 (04:59→18:44)
[2024-10-11] MEDS: CEFEPIME 2 GM/NS 50 ML 2 GM/50 ML BAG IVPB ×3 (05:00→22:14)
[2024-10-11 06:03] LABS: Anion Gap 2 mmol/L (4-12); Blood Urea Nitrogen 18 mg/dL (7-17); Calcium 8.4 mg/dL (8.4-10.2); Carbon Dioxide 24 mmol/L (22-30); Chloride 110 mmol/L (98-107); Estimated CRCL calculation 78 ml/min; Estimated Glomerular Filt Rate > 60; Glucose 91 mg/dL (65-110); Magnesium 2.2 mg/dL (1.6-2.3); Potassium 3.9 mmol/L (3.4-5.0); Sodium 136 mmol/L (137-145)
[2024-10-11 06:10] LABS: NT Pro B Type Natriuretic Pept 4860 pg/mL (19.9-100)
--- NOTE | 2024-10-11 07:29 | P.PNIM_ITS ---
Progress Note: A&P Assessment and Plan (1) Paroxysmal atrial fibrillation with RVR: Code(s): I48.0 - Paroxysmal atrial fibrillation Status: Acute (2) Sepsis: Qualifiers: Acute renal failure type: unspecified Sepsis acute organ dysfunction status: with acute organ dysfunction Sepsis type: sepsis due to unspecified organism Severe sepsis acute organ dysfunction type: acute renal failure Severe sepsis shock status: without septic shock Qualified Code(s): A41.9 - Sepsis, unspecified organism; R65.20 - Severe sepsis without septic shock; N17.9 - Acute kidney failure, unspecified Code(s): A41.9 - Sepsis, unspecified organism Status: Acute (3) Leg wound, left: Qualifiers: Encounter type: initial encounter Qualified Code(s): S81.802A - Unspecified open wound, left lower leg, initial encounter Code(s): S81.802A - Unspecified open wound, left lower leg, initial encounter Status: Acute (4) Leg wound, right: Qualifiers: Encounter type: initial encounter Qualified Code(s): S81.801A - Unspecified open wound, right lower leg, initial encounter Code(s): S81.801A - Unspecified open wound, right lower leg, initial encounter Status: Acute (5) Acute exacerbation of chronic heart failure: Code(s): I50.9 - Heart failure, unspecified Status: Acute Assessment and Plan: (6) Abnormal finding on urinalysis: Code(s): R82.90 - Unspecified abnormal findings in urine Status: Acute Assessment and Plan: (7) Acute kidney injury: Code(s): N17.9 - Acute kidney failure, unspecified Status: Acute Assessment and Plan: Will continue with fluids and monitor creatinine closely. (8) Leukocytosis: Qualifiers: Leukocytosis type: unspecified Qualified Code(s): D72.829 - Elevated white blood cell count, unspecified Code(s): D72.829 - Elevated white blood cell count, unspecified Status: Acute Assessment and Plan: Probably secondary to increased UTI. Will continue with IV antibiotics and monitor closely (9) Atrial fibrillation with rapid ventricular response: Code(s): I48.91 - Unspecified atrial fibrillation Status: Acute Assessment and Plan: (10) Morbid obesity with BMI of 60.0-69.9, adult: Code(s): E66.01 - Morbid (severe) obesity due to excess calories; Z68.44 - Body mass index [BMI] 60.0-69.9, adult Status: Chronic Assessment and Plan: Diet instructions. 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 (12) Wounds, multiple: Code(s): T07.XXXA - Unspecified multiple injuries, initial encounter Status: Chronic Plan 1. Acute Renal Failure Elevated creatinine above baseline continue IV fluids at a gentle rate Follow-up BMP 2. Acute on chronic systolic and diastolic heart failure. Lasix was held for CARIDAD Shortness of breath and generalized edema. Blood pressure improved. Takes mi dodrine at home Lasix was on hold given acute kidney injury. Creatinine normalized today. Resume 40mg daily & monitor blood pressure & creatinine 07/21 Echo showed LVEF 55-60%, moderate to severe mitral and tricuspid regurg, pulmonary HTN --Resumed metoprolol 10/09 for afib rate control --Cardiology consulted 10/09, signed off 3. Septic shock Patient met sepsis criteria with fever, tachycardia, tachypnea and leukocytosis. Temp 100.9 on 10/05. Received fluids Patient has sepsis due to leg wounds/cellulitis bilateral lower extremities blood cultures have been obtained and are pending. Received cefepime and now patient is on vancomycin and Zosyn 10/07 Continue Cefepime, DC Vanc and Flagyl and monitor Blood pressure normalized on home midodrine --Blood cultures negative 4. Paroxysmal afib Home meds: Cardizem 120, Metoprolol 25 q12, Xarelto 10mg daily --Resumef metoprolol 12.5 q6 instead of 25mg BID today. Hold parameters in for meds, may need to decrease total daily dose if --Diltiazem on hold, restart as 30 q6 and monitor --Continue Xarelto 5. Bilateral lower extremity wounds Bilateral lower extremity edema affecting skin integrity and increasing risk of wounds. Evaluated wounds 10/11 and minimal drainage, appear to be healing Erythema swelling, tender bilateral lower extremities, multiple ulcers with purulent discharge UOA Antibiotics see above Cellulitis improving, continue wound care Time Spent With Patient Time: 67 minutes Subjective Date/time seen: 10/11/24 1414 Interval history: Blood pressure soft, held one dose of diltiazem. Reported mild dizziness wounds look clean, healing. Still having a lot of leg pain Hospital course: 63 year old female hx morbid obesity, afib on AC, moderate- severe tricuspid regurg, right heart failure, admitted for nonhealing wounds and cellulitis. In the ED she was in afib with RVR and septic with a temperature of 100.9. Treated with a cardizem drip, and empiric Cefepime/Vancomycin/Flagyl. Cardiology was consulted for additional recommendations for management of heart failure. Restarting home lasix, dilt and metoprolol. Review of Systems Review of Systems: 12 systems were reviewed with pertinent positives and negatives per HPI. Except as documented in the HPI, all other systems were reviewed and are negative. Exam Narrative: GENERAL: Pleasant, in no acute distress. Well-nourished. - EYES: EOMI. Anicteric. - HENT: Moist mucous membranes. - LUNGS: Clear to auscultation bilateral ly, no wheezing, rhonchi, or rales. - CARDIOVASCULAR: Irregular irregular r hythm,. No murmur. No JVD. - ABDOMEN: Soft, non-tender and non-dist ended. No palpable masses. - EXTREMITIES: No edema. Peripheral puls es 2+. Non-tender. - NEUROLOGIC: No focal neurological defi cits. CN II-XII grossly intact. - PSYCHIATRIC: Awake, Alert and oriented x 3. Appropriate mood and affect. - SKIN: Right knee, swelling, tender bi lateral lower extremities, crusting to bilateral legs, wounds wrapped - LYMPH: No cervical lymphadenopathy. - LYMPH: No cervical lymphadenopathy. Objective Data Vital Signs Vital Signs: Vital Signs - 24 hr 10/10/24 07:54 10/10/24 08:00 10/10/24 09:26 Temperature Pulse Rate 76 90 Respiratory Rate Blood Pressure 122/68 Pulse Oximetry 95 Oxygen Delivery Room Air 10/10/24 09:27 10/10/24 12:00 10/10/24 14:00 Temperature 97.8 F Pulse Rate 90 87 93 Respiratory Rate 20 Blood Pressure 107/64 Pulse Oximetry 98 Oxygen Delivery 10/10/24 16:00 10/10/24 17:15 10/10/24 19:36 Temperature 97.3 F L Pulse Rate 90 70 74 Respiratory Rate 20 Blood Pressure 106/61 Pulse Oximetry 97 Oxygen Delivery 10/10/24 20:00 10/10/24 20:00 10/10/24 20:10 Temperature Pulse Rate 84 86 Respiratory Rate Blood Pressure Pulse Oximetry Oxygen Delivery Room Air 10/10/24 22:00 10/11/24 00:00 10/11/24 04:00 Temperature 97.5 F L Pulse Rate 77 75 74 Respiratory Rate 20 Blood Pressure 100/64 Pulse Oximetry 97 Oxygen Delivery 10/11/24 04:05 10/11/24 04:59 Temperature 97.5 F L Pulse Rate 78 76 Respiratory Rate 16 Blood Pressure 112/63 Pulse Oximetry 96 Oxygen Delivery Intake/Output Intake/Output: Intake & Output 10/08/24 10/09/24 10/10/24 10/11/24 23:59 23:59 23:59 23:59 Intake Total 2980 2130 1140 250 Output Total 0154 677 0759 150 Balance 1730 1630 -560 100 Meds/Results Medications: Active Medications Generic Name Dose Route Start Last Admin Trade Name Freq PRN Reason Stop Dose Admin Acetaminophen 650 mg 10/05/24 22:06 10/10/24 14:34 Acetaminophen 325 Mg Tablet PO 650 mg Q4H PRN Administration Mild Pain (1-3) or Fever Hydrocodone Bitart/Acetaminophen 1 tab 10/06/24 02:38 10/06/24 17:26 Hydrocodone/Acetaminophen (*Crx) 5-325 Mg Tablet PO 1 tab Q6H PRN Administration Pain Rated 4-6 Cyanocobalamin 1,000 mcg 10/06/24 09:00 10/10/24 09:27 Cyanocobalamin 1,000 Mcg Tablet PO 1,000 mcg QAM YONI Administration Diltiazem HCl 30 mg 10/10/24 18:00 10/11/24 04:59 Diltiazem Hcl 30 Mg Tablet PO 30 mg Q6HR OYNI Administration Ferrous Sulfate 325 mg 10/06/24 09:00 10/09/24 08:10 Ferrous Sulfate [address] PO 325 mg BID YONI Administration Furosemide 40 mg 10/09/24 14:20 10/10/24 09:27 Furosemide 40 Mg Tablet PO 40 mg DAILY YONI Administration Cefepime HCl 2 gm in 50 mls @ 100 mls/hr 10/07/24 14:00 10/11/24 05:43 Maxipime 2 Gm/Ns 50 Ml IVPB Infused Q8H YONI Infusion Vancomycin HCl 1,500 mg in 500 mls @ 250 mls/hr 10/07/24 15:00 10/10/24 16:30 Vancomycin 1,500 Mg/Ns 500 Ml IVPB Infused Q24H YONI Infusion Metoprolol Tartrate 12.5 mg 10/09/24 10:00 10/11/24 04:59 Metoprolol Tartrate 12.5 Mg Tablet PO 12.5 mg Q6H YONI Administration Metronidazole 500 mg 10/09/24 14:00 10/11/24 04:59 Metronidazole 500 Mg Tablet PO 500 mg Q8HR YONI Administration Midodrine 10 mg 10/06/24 09:00 10/10/24 18:49 Midodrine Hcl 10 Mg Tablet PO 10 mg TID YONI Administration Morphine Sulfate 4 mg 10/06/24 02:38 Morphine Sulfate (*Crx) 4 Mg/Ml Inj IV PUSH Q4H PRN Pain Rated 7-10 Multi-Ingred Cream/Lotion/Oil/Oint 1 applic 10/09/24 10:00 10/10/24 09:28 Eucerin Cream 120 Gm Jar TOPICAL 1 applic DAILY YONI Administration Multivitamins/Minerals 1 tab 10/06/24 09:00 10/10/24 09:27 Multivitamins /C Lutein (Centrum Silver) Tablet *Bkc PO 1 tab DAILY YONI Administration Ondansetron HCl 4 mg 10/06/24 02:38 Ondansetron Inj 4 Mg/2 Ml Vial IV PUSH Q4H PRN Nausea And Vomiting Potassium Chloride 10 meq 10/06/24 09:00 10/10/24 09:27 Potassium Chloride 10 Meq Er Tablet PO 10 meq DAILY YONI Administration Rivaroxaban 10 mg 10/06/24 17:00 10/10/24 18:49 Rivaroxaban 10 Mg Tablet PO 10 mg DAILY@1700 [facility] Administration Radiology Results: ITS Impressions Chest X-Ray 10/05/24 16:00 IMPRESSION: No acute cardiopulmonary process. Labs Labs: Laboratory Results - last 24 hr 10/11/24 05:10 Sodium 136 L Potassium 3.9 Chloride 110 H Carbon Dioxide 24 Anion Gap 2 L BUN 18 H Creatinine 0.90 Estim Creat Clear Calc 78 Estimated GFR > 60 Glucose 91 Calcium 8.4 Magnesium 2.2 NT-Pro-B Natriuret Pep 4860 H Quality VTE Prophylaxis VTE prophylaxis: pharmacologic ordered (Continue home Xarelto) Hospitalist MIPS Advance Care Plan I have confirmed that the patient's Advanced Care Plan is present, code status is documented, or surrogate decision maker is listed in patient medical record.: Yes Medication Reconciliation I have utilized all available resources to obtain, update and review the patients current medications (includes all prescriptions, OTC, herbals, cannabis, and nutritional supplements).: Yes
[2024-10-11] MEDS: CYANOCOBALAMIN 1,000 MCG TABLET 1000 MCG PO (09:25)
[2024-10-11] MEDS: MIDODRINE HCL 10 MG TABLET PO ×3 (09:25→17:06)
[2024-10-11] MEDS: FUROSEMIDE 40 MG TABLET PO (09:25)
[2024-10-11] MEDS: POTASSIUM CHLORIDE 10 MEQ ER TABLET PO (09:25)
[2024-10-11] MEDS: EUCERIN CREAM 120 GM JAR 1 APPLIC TOPICAL (09:26)
[2024-10-11] MEDS: ACETAMINOPHEN 325 MG TABLET 650 MG PO (13:06)
[2024-10-11] MEDS: VANCOMYCIN 1,500 MG/NS 500 ML 1,500 MG/500 ML BAG 250 MG IVPB (15:24)
[2024-10-11] MEDS: RIVAROXABAN 10 MG TABLET PO (17:08)
[2024-10-12] VITALS (13 sets, daily range): BP systolic 98–120; BP diastolic 54–76; PULSE 63–98; RESP 18–20; TEMP 36.4–36.6; O2SAT 93–98
[2024-10-12] MEDS: dilTIAZem HCL 30 MG TABLET PO ×4 (00:07→17:19)
[2024-10-12] MEDS: METOPROLOL TARTRATE 12.5 MG TABLET PO ×4 (04:53→21:22)
[2024-10-12 06:03] LABS: Anion Gap 2 mmol/L (4-12); Blood Urea Nitrogen 18 mg/dL (7-17); Calcium 8.5 mg/dL (8.4-10.2); Carbon Dioxide 25 mmol/L (22-30); Chloride 109 mmol/L (98-107); Estimated CRCL calculation 87 ml/min; Estimated Glomerular Filt Rate > 60; Glucose 96 mg/dL (65-110); Magnesium 2.2 mg/dL (1.6-2.3); Potassium 3.9 mmol/L (3.4-5.0); Sodium 136 mmol/L (137-145)
[2024-10-12] MEDS: CEFEPIME 2 GM/NS 50 ML 2 GM/50 ML BAG IVPB (06:14)
--- NOTE | 2024-10-12 07:16 | P.PNIM_ITS ---
Progress Note: A&P Assessment and Plan (1) Paroxysmal atrial fibrillation with RVR: Code(s): I48.0 - Paroxysmal atrial fibrillation Status: Acute (2) Sepsis: Qualifiers: Acute renal failure type: unspecified Sepsis acute organ dysfunction status: with acute organ dysfunction Sepsis type: sepsis due to unspecified organism Severe sepsis acute organ dysfunction type: acute renal failure Severe sepsis shock status: without septic shock Qualified Code(s): A41.9 - Sepsis, unspecified organism; R65.20 - Severe sepsis without septic shock; N17.9 - Acute kidney failure, unspecified Code(s): A41.9 - Sepsis, unspecified organism Status: Acute (3) Leg wound, left: Qualifiers: Encounter type: initial encounter Qualified Code(s): S81.802A - Unspecified open wound, left lower leg, initial encounter Code(s): S81.802A - Unspecified open wound, left lower leg, initial encounter Status: Acute (4) Leg wound, right: Qualifiers: Encounter type: initial encounter Qualified Code(s): S81.801A - Unspecified open wound, right lower leg, initial encounter Code(s): S81.801A - Unspecified open wound, right lower leg, initial encounter Status: Acute (5) Acute exacerbation of chronic heart failure: Code(s): I50.9 - Heart failure, unspecified Status: Acute Assessment and Plan: (6) Abnormal finding on urinalysis: Code(s): R82.90 - Unspecified abnormal findings in urine Status: Acute Assessment and Plan: (7) Acute kidney injury: Code(s): N17.9 - Acute kidney failure, unspecified Status: Acute Assessment and Plan: Will continue with fluids and monitor creatinine closely. (8) Leukocytosis: Qualifiers: Leukocytosis type: unspecified Qualified Code(s): D72.829 - Elevated white blood cell count, unspecified Code(s): D72.829 - Elevated white blood cell count, unspecified Status: Acute Assessment and Plan: Probably secondary to increased UTI. Will continue with IV antibiotics and monitor closely (9) Atrial fibrillation with rapid ventricular response: Code(s): I48.91 - Unspecified atrial fibrillation Status: Acute Assessment and Plan: (10) Morbid obesity with BMI of 60.0-69.9, adult: Code(s): E66.01 - Morbid (severe) obesity due to excess calories; Z68.44 - Body mass index [BMI] 60.0-69.9, adult Status: Chronic Assessment and Plan: Diet instructions. 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 (12) Wounds, multiple: Code(s): T07.XXXA - Unspecified multiple injuries, initial encounter Status: Chronic Plan 1. Acute Renal Failure Elevated creatinine above baseline continue IV fluids at a gentle rate Follow-up BMP 2. Acute on chronic systolic and diastolic heart failure. Lasix was held for CARIDAD Shortness of breath and generalized edema. Blood pressure improved. Takes mi dodrine at home Lasix Resume 40mg daily & monitor blood pressure & creatinine 07/21 Echo showed LVEF 55-60%, moderate to severe mitral and tricuspid regurg, pulmonary HTN --Resumed metoprolol 10/09 for afib rate control --Cardiology consulted 10/09, signed off 3. Septic shock Patient met sepsis criteria with fever, tachycardia, tachypnea and leukocytosis. Temp 100.9 on 10/05. Received fluids Patient has sepsis due to leg wounds/cellulitis bilateral lower extremities blood cultures have been obtained and are pending. Received cefepime and now patient is on vancomycin and Zosyn 10/07 Continue Cefepime, DC Vanc and Flagyl and monitor Blood pressure normalized on home midodrine --Blood cultures negative 4. Paroxysmal afib Home meds: Cardizem 120, Metoprolol 25 q12, Xarelto 10mg daily --Resumef metoprolol 12.5 q6 instead of 25mg BID today. Hold parameters in for meds, may need to decrease total daily dose if --Diltiazem on hold, restart as 30 q6 and monitor --Continue Xarelto 5. Bilateral lower extremity wounds Bilateral lower extremity edema affecting skin integrity and increasing risk of wounds. Evaluated wounds 10/11 and minimal drainage, appear to be healing Erythema swelling, tender bilateral lower extremities, multiple ulcers with purulent discharge UOA Antibiotics see above Cellulitis improving, continue wound care PT/OT continue recommending placement, patient cannot care for herself at home, she is adamantly refusing placement [employer] [employer] [facility] have been contacted due to self neglect. Time Spent With Patient Time with patient: Greater than 35 minutes Subjective Date/time seen: 10/12/24 07:16 Interval history: Blood pressure soft, held one dose of diltiazem. Reported mild dizziness wounds look clean, healing. Still having a lot of leg pain, patient was able to get to chair today, patient will need to rule improve more with PT and OT before discharge home will be acceptable Hospital course: 63 year old female hx morbid obesity, afib on AC, moderate- severe tricuspid regurg, right heart failure, admitted for nonhealing wounds and cellulitis. In the ED she was in afib with RVR and septic with a temperature of 100.9. Treated with a cardizem drip, and empiric Cefepime/Vancomycin/Flagyl. Cardiology was consulted for additional recommendations for management of heart failure. Restarting home lasix, dilt and metoprolol. Review of Systems Review of Systems: 12 systems were reviewed with pertinent positives and negatives per HPI. Except as documented in the HPI, all other systems were reviewed and are negative. Exam Narrative: GENERAL: Pleasant, in no acute distress. Obese - EYES: EOMI. Anicteric. - HENT: Moist mucous membranes. - LUNGS: Clear to auscultation bilateral ly, no wheezing, rhonchi, or rales. - CARDIOVASCULAR: Irregular irregular r hythm,. No murmur. No JVD. - ABDOMEN: Soft, non-tender and non-dist ended. No palpable masses. - EXTREMITIES: 2+ edema. Peripheral pul ses 2+. Non-tender. - NEUROLOGIC: No focal neurological defi cits. CN II-XII grossly intact. - PSYCHIATRIC: Awake, Alert and oriented x 3. Appropriate mood and affect. - SKIN: Right knee, swelling, tender bi lateral lower extremities, crusting to bilateral legs, wounds wrapped - LYMPH: No cervical lymphadenopathy. - LYMPH: No cervical lymphadenopathy. Const: Other: Super morbidly obese, appears stated age, no acute distress, lying flat in bed HENMT: Other: Head is normocephalic atraumatic, mucous membranes are moist, crowded posterior oropharynx, good dentition Eyes: Other: Pupils are equal and reactive, no scleral icterus, no conjunctival pallor Neck: Other: Large neck circumference, no obvious JVD, supple Resp: Other: Clear to auscultation bilaterally anterior hurt, no increased work of breathing Cardio: Other: Distant heart sounds, irregularly irregular, tachycardic, no JVD, 2+ bilateral radial pulses, palpable pedal pulses GI: Other: Obese, soft, nontender, normoactive bowel sounds Skin: Other: Numerous bilateral lower extremity wounds mostly below the knee and above the ankle, please see nursing documentation for photos, chronic dark skin changes of bilateral lower extremities consistent with history of venous stasis Neuro: Other: Alert orient x4, speech is clear, no facial asymmetry, moves all extremities equally, no localizing neurologic deficits noted during conversation Extrem: Other: Marked lymphedema and lymphedema changes with multiple lower extremity wounds, equal strength in all extremities, patient is able to stand up and ambulate with maximal effort Psych: Other: Appropriate mood and affect, pleasant, judgment and insight intact Objective Data Vital Signs Vital Signs: Vital Signs - 24 hr 10/11/24 08:00 10/11/24 09:24 10/11/24 09:25 Temperature Pulse Rate 75 77 77 Respiratory Rate Blood Pressure 101/64 Pulse Oximetry 97 Oxygen Delivery 10/11/24 09:30 10/11/24 12:00 10/11/24 13:40 Temperature 97.9 F Pulse Rate 82 85 Respiratory Rate 24 H Blood Pressure 91/60 L Pulse Oximetry 97 97 Oxygen Delivery Room Air 10/11/24 16:00 10/11/24 17:06 10/11/24 17:08 Temperature Pulse Rate 84 86 Respiratory Rate Blood Pressure 96/62 L Pulse Oximetry Oxygen Delivery 10/11/24 18:44 10/11/24 20:00 10/11/24 21:58 Temperature 98.1 F Pulse Rate 85 70 89 Respiratory Rate 18 Blood Pressure 99/62 L 94/50 L Pulse Oximetry 98 Oxygen Delivery 10/11/24 22:14 10/12/24 04:00 10/12/24 04:53 Temperature Pulse Rate 89 79 89 Respiratory Rate Blood Pressure Pulse Oximetry Oxygen Delivery 10/12/24 06:00 Temperature 97.8 F Pulse Rate 75 Respiratory Rate 18 Blood Pressure 104/70 Pulse Oximetry 93 Oxygen Delivery Intake/Output Intake/Output: Intake & Output 10/09/24 10/10/24 10/11/24 10/12/24 23:59 23:59 23:59 23:59 Intake Total 2130 1140 1150 50 Output Total 500 1700 650 200 Balance 1630 -560 500 -150 Meds/Results Medications: Active Medications Generic Name Dose Route Start Last Admin Trade Name Freq PRN Reason Stop Dose Admin Acetaminophen 650 mg 10/05/24 22:06 10/11/24 13:06 Acetaminophen 325 Mg Tablet PO 650 mg Q4H PRN Administration Mild Pain (1-3) or Fever Hydrocodone Bitart/Acetaminophen 1 tab 10/06/24 02:38 10/06/24 17:26 Hydrocodone/Acetaminophen (*Crx) 5-325 Mg Tablet PO 1 tab Q6H PRN Administration Pain Rated 4-6 Cyanocobalamin 1,000 mcg 10/06/24 09:00 10/11/24 09:25 Cyanocobalamin 1,000 Mcg Tablet PO 1,000 mcg QAM YONI Administration Diltiazem HCl 30 mg 10/10/24 18:00 10/12/24 06:16 Diltiazem Hcl 30 Mg Tablet PO 30 mg Q6HR YONI Administration Ferrous Sulfate 325 mg 10/06/24 09:00 10/09/24 08:10 Ferrous Sulfate [address] PO 325 mg BID YONI Administration Furosemide 40 mg 10/09/24 14:20 10/11/24 09:25 Furosemide 40 Mg Tablet PO 40 mg DAILY YONI Administration Cefepime HCl 2 gm in 50 mls @ 100 mls/hr 10/07/24 14:00 10/12/24 06:47 Maxipime 2 Gm/Ns 50 Ml IVPB Infused Q8H YONI Infusion Metoprolol Tartrate 12.5 mg 10/09/24 10:00 10/12/24 04:53 Metoprolol Tartrate 12.5 Mg Tablet PO 12.5 mg Q6H YONI Administration Midodrine 10 mg 10/06/24 09:00 10/11/24 17:06 Midodrine Hcl 10 Mg Tablet PO 10 mg TID YONI Administration Morphine Sulfate 4 mg 10/06/24 02:38 Morphine Sulfate (*Crx) 4 Mg/Ml Inj IV PUSH Q4H PRN Pain Rated 7-10 Multi-Ingred Cream/Lotion/Oil/Oint 1 applic 10/09/24 10:00 10/11/24 09:26 Eucerin Cream 120 Gm Jar TOPICAL 1 applic DAILY YONI Administration Multivitamins/Minerals 1 tab 10/06/24 09:00 10/11/24 09:26 Multivitamins /C Lutein (Centrum Silver) Tablet *Bkc PO Not Given DAILY [facility] Ondansetron HCl 4 mg 10/06/24 02:38 Ondansetron Inj 4 Mg/2 Ml Vial IV PUSH Q4H PRN Nausea And Vomiting Potassium Chloride 10 meq 10/06/24 09:00 10/11/24 09:25 Potassium Chloride 10 Meq Er Tablet PO 10 meq DAILY [facility] Administration Rivaroxaban 10 mg 10/06/24 17:00 10/11/24 17:08 Rivaroxaban 10 Mg Tablet PO 10 mg DAILY@1700 [facility] Administration Radiology Results: ITS Impressions Chest X-Ray 10/05/24 16:00 IMPRESSION: No acute cardiopulmonary process. Labs Labs: Laboratory Results - last 24 hr 10/12/24 05:40 Sodium 136 L Potassium 3.9 Chloride 109 H Carbon Dioxide 25 Anion Gap 2 L BUN 18 H Creatinine 0.80 Estim Creat Clear Calc 87 Estimated GFR > 60 Glucose 96 Calcium 8.5 Magnesium 2.2 Quality VTE Prophylaxis VTE prophylaxis: pharmacologic ordered (Continue home Xarelto)
[2024-10-12] MEDS: MULTIVITAMINS /C LUTEIN (CENTRUM SILVER) TABLET *BKC 1 TAB PO (09:11)
[2024-10-12] MEDS: POTASSIUM CHLORIDE 10 MEQ ER TABLET PO (09:12)
[2024-10-12] MEDS: FUROSEMIDE 40 MG TABLET PO (09:12)
[2024-10-12] MEDS: EUCERIN CREAM 120 GM JAR 1 APPLIC TOPICAL (09:15)
[2024-10-12] MEDS: MIDODRINE HCL 10 MG TABLET PO ×2 (12:09→17:19)
[2024-10-12] MEDS: ACETAMINOPHEN 325 MG TABLET 650 MG PO (15:41)
[2024-10-12] MEDS: RIVAROXABAN 10 MG TABLET PO (17:19)
[2024-10-13] VITALS (11 sets, daily range): BP systolic 98–110; BP diastolic 56–74; PULSE 70–91; RESP 18–20; TEMP 36.5–36.6; O2SAT 97–100
[2024-10-13] MEDS: METOPROLOL TARTRATE 12.5 MG TABLET PO ×4 (04:15→21:44)
[2024-10-13] MEDS: dilTIAZem HCL 30 MG TABLET PO ×3 (06:01→12:29)
[2024-10-13] MEDS: MIDODRINE HCL 10 MG TABLET PO ×3 (09:06→17:03)
[2024-10-13] MEDS: POTASSIUM CHLORIDE 10 MEQ ER TABLET PO (09:06)
[2024-10-13] MEDS: EUCERIN CREAM 120 GM JAR 1 APPLIC TOPICAL (09:06)
[2024-10-13] MEDS: FUROSEMIDE 40 MG TABLET PO (09:06)
--- NOTE | 2024-10-13 09:21 | PCNWS ---
Weekly nutritional screen. Patient is tolerating current diet with diet supplements BID. No weight loss reported. No nutritional needs at this time.
--- NOTE | 2024-10-13 11:10 | P.PNIM_ITS ---
Progress Note: A&P Assessment and Plan (1) Paroxysmal atrial fibrillation with RVR: Code(s): I48.0 - Paroxysmal atrial fibrillation Status: Acute (2) Sepsis: Qualifiers: Acute renal failure type: unspecified Sepsis acute organ dysfunction status: with acute organ dysfunction Sepsis type: sepsis due to unspecified organism Severe sepsis acute organ dysfunction type: acute renal failure Severe sepsis shock status: without septic shock Qualified Code(s): A41.9 - Sepsis, unspecified organism; R65.20 - Severe sepsis without septic shock; N17.9 - Acute kidney failure, unspecified Code(s): A41.9 - Sepsis, unspecified organism Status: Acute (3) Leg wound, left: Qualifiers: Encounter type: initial encounter Qualified Code(s): S81.802A - Unspecified open wound, left lower leg, initial encounter Code(s): S81.802A - Unspecified open wound, left lower leg, initial encounter Status: Acute (4) Leg wound, right: Qualifiers: Encounter type: initial encounter Qualified Code(s): S81.801A - Unspecified open wound, right lower leg, initial encounter Code(s): S81.801A - Unspecified open wound, right lower leg, initial encounter Status: Acute (5) Acute exacerbation of chronic heart failure: Code(s): I50.9 - Heart failure, unspecified Status: Acute Assessment and Plan: (6) Abnormal finding on urinalysis: Code(s): R82.90 - Unspecified abnormal findings in urine Status: Acute Assessment and Plan: (7) Acute kidney injury: Code(s): N17.9 - Acute kidney failure, unspecified Status: Acute Assessment and Plan: Will continue with fluids and monitor creatinine closely. (8) Leukocytosis: Qualifiers: Leukocytosis type: unspecified Qualified Code(s): D72.829 - Elevated white blood cell count, unspecified Code(s): D72.829 - Elevated white blood cell count, unspecified Status: Acute Assessment and Plan: Probably secondary to increased UTI. Will continue with IV antibiotics and monitor closely (9) Atrial fibrillation with rapid ventricular response: Code(s): I48.91 - Unspecified atrial fibrillation Status: Acute Assessment and Plan: (10) Morbid obesity with BMI of 60.0-69.9, adult: Code(s): E66.01 - Morbid (severe) obesity due to excess calories; Z68.44 - Body mass index [BMI] 60.0-69.9, adult Status: Chronic Assessment and Plan: Diet instructions. 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 (12) Wounds, multiple: Code(s): T07.XXXA - Unspecified multiple injuries, initial encounter Status: Chronic Plan 1. Acute Renal Failure Now resolved 2. Acute on chronic systolic and diastolic heart failure. Lasix was held for CARIDAD Shortness of breath and generalized edema. Blood pressure improved. Takes midodrine at home Lasix Resume 40mg daily & monitor blood pressure & creatinine 07/21 Echo showed LVEF 55-60%, moderate to severe mitral and tricuspid regurg, pulmonary HTN --Resumed metoprolol 10/09 for afib rate control --Cardiology consulted 10/09, signed off 3. Septic shock Patient met sepsis criteria with fever, tachycardia, tachypnea and leukocytosis. Temp 100.9 on 10/05. Received fluids Patient has sepsis due to leg wounds/cellulitis bilateral lower extremities blood cultures have been obtained and are pending. Received cefepime and now patient is on vancomycin and Zosyn 10/07 Continue Cefepime, DC Vanc and Flagyl and monitor Blood pressure normalized on home midodrine --Blood cultures negative 10/13: ABX finished 4. Paroxysmal afib Home meds: Cardizem 120, Metoprolol 25 q12, Xarelto 10mg daily --Resumef metoprolol 12.5 q6 instead of 25mg BID today. Hold parameters in for meds, may need to decrease total daily dose if --Diltiazem on hold, restart as 30 q6 and monitor --Continue Xarelto 10/13: Will try diltiazem CD 120 mg QHS and metoprolol succinate 50 mg QAM 5. Bilateral lower extremity wounds Bilateral lower extremity edema affecting skin integrity and increasing risk of wounds. Evaluated wounds 10/11 and minimal drainage, appear to be healing Erythema swelling, tender bilateral lower extremities, multiple ulcers with purulent discharge UOA Antibiotics see above Cellulitis improving, continue wound care PT/OT continue recommending placement, patient cannot care for herself at home, she is adamantly refusing placement Adult protective Services have been contacted due to self neglect. Time Spent With Patient Time with patient: Greater than 35 minutes Subjective Date/time seen: 10/13/24 11:10 Interval history: Patient doing better with PT/OT, able to get up from bed to chair with walker. Patient noted iron pills have not been given recently. This is a home med which we will continue. Patient still needing help with leg dressings. Patient notes pain still bad with dressings. She still will not go to SNF/Rehab. May benefit from Swing Bed?? Review of Systems Review of Systems: All systems reviewed & are unremarkable except as noted in HPI and below Exam Narrative: - GENERAL: Pleasant, in no acute distr ess. Obese - EYES: EOMI. Anicteric. - HENT: Moist mucous membranes. - LUNGS: Clear to auscultation bilateral ly, no wheezing, rhonchi, or rales. - CARDIOVASCULAR: Irregular irregular r hythm, normal rate. No murmur. No JVD. - ABDOMEN: Soft, non-tender and non-dist ended. No palpable masses. - EXTREMITIES: 2+ edema. Peripheral pul ses 2+. Non-tender. - NEUROLOGIC: No focal neurological defi cits. CN II-XII grossly intact. - PSYCHIATRIC: Awake, Alert and oriented x 3. Appropriate mood and affect. - SKIN: Right knee, swelling, tender bi lateral lower extremities, crusting to b ilateral legs, wounds wrapped Objective Data Vital Signs Vital Signs: Vital Signs - 24 hr 10/12/24 12:01 10/12/24 14:00 10/12/24 15:42 Temperature 36.4 C Pulse Rate 84 88 88 Respiratory Rate 18 Blood Pressure 120/76 Pulse Oximetry 96 Oxygen Delivery 10/12/24 16:04 10/12/24 19:34 10/12/24 20:00 Temperature 36.5 C Pulse Rate 68 69 63 Respiratory Rate 20 Blood Pressure 98/54 L Pulse Oximetry 98 Oxygen Delivery 10/12/24 21:22 10/13/24 00:00 10/13/24 03:45 Temperature 36.6 C Pulse Rate 69 70 72 Respiratory Rate 20 Blood Pressure 98/56 L Pulse Oximetry 97 Oxygen Delivery 10/13/24 04:00 10/13/24 04:15 10/13/24 08:00 Temperature Pulse Rate 74 81 Respiratory Rate Blood Pressure Pulse Oximetry Oxygen Delivery Room Air 10/13/24 09:06 10/13/24 09:06 Temperature Pulse Rate 71 71 Respiratory Rate Blood Pressure 107/63 Pulse Oximetry Oxygen Delivery Intake/Output Intake/Output: Intake & Output 10/10/24 10/11/24 10/12/24 10/13/24 23:59 23:59 23:59 23:59 Intake Total 1140 1150 650 730 Output Total 1700 650 401 Balance -560 500 249 730 Meds/Results Medications: Active Medications Generic Name Dose Route Start Last Admin Trade Name Freq PRN Reason Stop Dose Admin Acetaminophen 650 mg 10/05/24 22:06 10/12/24 15:41 Acetaminophen 325 Mg Tablet PO 650 mg Q4H PRN Administration Mild Pain (1-3) or Fever Hydrocodone Bitart/Acetaminophen 1 tab 10/06/24 02:38 10/06/24 17:26 Hydrocodone/Acetaminophen (*Crx) 5-325 Mg Tablet PO 1 tab Q6H PRN Administration Pain Rated 4-6 Cyanocobalamin 1,000 mcg 10/06/24 09:00 10/13/24 09:05 Cyanocobalamin 1,000 Mcg Tablet PO Not Given QAM [facility] Diltiazem HCl 30 mg 10/10/24 18:00 10/13/24 06:01 Diltiazem Hcl 30 Mg Tablet PO 30 mg Q6HR YONI Administration Ferrous Sulfate 325 mg 10/06/24 09:00 10/09/24 08:10 Ferrous Sulfate [address] PO 325 mg BID YONI Administration Furosemide 40 mg 10/09/24 14:20 10/13/24 09:06 Furosemide 40 Mg Tablet PO 40 mg DAILY YONI Administration Metoprolol Tartrate 12.5 mg 10/09/24 10:00 10/13/24 09:06 Metoprolol Tartrate 12.5 Mg Tablet PO 12.5 mg Q6H YONI Administration Midodrine 10 mg 10/06/24 09:00 10/13/24 09:06 Midodrine Hcl 10 Mg Tablet PO 10 mg TID YONI Administration Morphine Sulfate 4 mg 10/06/24 02:38 Morphine Sulfate (*Crx) 4 Mg/Ml Inj IV PUSH Q4H PRN Pain Rated 7-10 Multi-Ingred Cream/Lotion/Oil/Oint 1 applic 10/09/24 10:00 10/13/24 09:06 Eucerin Cream 120 Gm Jar TOPICAL 1 applic DAILY YONI Administration Multivitamins/Minerals 1 tab 10/06/24 09:00 10/13/24 09:04 Multivitamins /C Lutein (Centrum Silver) Tablet *Bkc PO Not Given DAILY [facility] Ondansetron HCl 4 mg 10/06/24 02:38 Ondansetron Inj 4 Mg/2 Ml Vial IV PUSH Q4H PRN Nausea And Vomiting Potassium Chloride 10 meq 10/06/24 09:00 10/13/24 09:06 Potassium Chloride 10 Meq Er Tablet PO 10 meq DAILY YONI Administration Rivaroxaban 10 mg 10/06/24 17:00 10/12/24 17:19 Rivaroxaban 10 Mg Tablet PO 10 mg DAILY@1700 YONI Administration Radiology Results: ITS Impressions Chest X-Ray 10/05/24 16:00 IMPRESSION: No acute cardiopulmonary process. Pulse Oximetry SpO2 results: 97% on room air Attestation: I personally reviewed and interpreted this pulse oximetry as follows: Interpretation: No need for supplemental oxygenation at this time Quality VTE Prophylaxis VTE prophylaxis: pharmacologic ordered (Continue home Xarelto) Hospitalist [facility] Advance Care Plan I have confirmed that the patient's Advanced Care Plan is present, code status is documented, or surrogate decision maker is listed in patient medical record.: Yes Medication Reconciliation I have utilized all available resources to obtain, update and review the patients current medications (includes all prescriptions, OTC, herbals, cannabis, and nutritional supplements).: Yes
[2024-10-13] MEDS: FERROUS SULFATE 325 MG TABLET DR PO (17:03)
[2024-10-13] MEDS: RIVAROXABAN 10 MG TABLET PO (17:03)
[2024-10-13] MEDS: dilTIAZem HCL CD 120 MG CAP.24HR PO (19:54)
[2024-10-14 04:06] VITALS: PULSE 70
[2024-10-14] MEDS: METOPROLOL TARTRATE 12.5 MG TABLET PO (04:06)
[2024-10-14 04:21] VITALS: BP 97/69; PULSE 84; RESP 18; TEMP 36.5; O2SAT 99
[2024-10-14 05:53] LABS: Basophils Absolute Auto 0.1 K/mm3 (0.0-0.1); Eosinophils Absolute Auto 0.4 K/mm3 (0-0.3); Eosinophils Percent Auto 7.2 % (0-4.4); Hematocrit 32.5 % (37.0-47.0); Hemoglobin 10.1 g/dL (12.0-15.0); Immature Granulocyte Percent A 1.7 % (0-0.5); Lymphocytes Absolute Auto 1.06 K/mm3 (0.9-3.2); Lymphocytes Percent Auto 17.7 % (18.3-44.2); Mean Corpuscular HGB Conc 31.1 g/dl (32-36); Mean Corpuscular Hemoglobin 30.5 pg (26-34); Mean Corpuscular Volume 98.2 fl (80-100); Monocytes Absolute Auto 0.6 K/mm3 (0.1-0.6); Monocytes Percent Auto 10.4 % (2.6-8.5); Neutrophils Absolute Auto 3.7 K/mm3 (1.3-6.7); Platelet Count Result 376 k/mm3 (150-375); Red Blood Count 3.31 M/mm3 (4.2-5.4); Red Cell Distribution Width 16.3 % (11.5-14.5)
[2024-10-14 06:04] LABS: Alanine Aminotransferase 9 U/L (6-35); Alkaline Phosphatase 106 U/L (38-126); Anion Gap 0 mmol/L (4-12); Aspartate Amino Transferase 25 U/L (14-36); Blood Urea Nitrogen 20 mg/dL (7-17); Calcium 8.7 mg/dL (8.4-10.2); Carbon Dioxide 29 mmol/L (22-30); Chloride 109 mmol/L (98-107); Estimated CRCL calculation 70 ml/min; Estimated Glomerular Filt Rate 55; Glucose 79 mg/dL (65-110); Magnesium 2.2 mg/dL (1.6-2.3); Potassium 3.8 mmol/L (3.4-5.0); Sodium 138 mmol/L (137-145)
[2024-10-14 08:31] VITALS: PULSE 84
[2024-10-14] MEDS: POTASSIUM CHLORIDE 10 MEQ ER TABLET PO (08:31)
[2024-10-14] MEDS: FERROUS SULFATE 325 MG TABLET DR PO (08:31)
[2024-10-14] MEDS: MIDODRINE HCL 10 MG TABLET PO ×2 (08:31→12:12)
[2024-10-14] MEDS: FUROSEMIDE 40 MG TABLET PO (08:31)
[2024-10-14] MEDS: EUCERIN CREAM 120 GM JAR 1 APPLIC TOPICAL (08:31)
[2024-10-14] MEDS: METOPROLOL SUCCINATE EXT REL 50 MG TABCR PO (08:31)
[2024-10-14 08:32] VITALS: BP 110/68; PULSE 84
--- NOTE | 2024-10-14 11:02 | PCOTNOTE ---
The patient treatment was not able to be completed. Patient is getting her legs wrapped. Will plan to continue treatment per plan of care.
[2024-10-14] MEDS: ACETAMINOPHEN 325 MG TABLET 650 MG PO (12:12)
--- NOTE | 2024-10-14 12:21 | PM.DS ---
DS: Admitting Diagnosis Discharge Date 10/14/24 Admitting Diagnosis Sepsis, Wound to BLE, PAF, CARIDAD DS: Discharge Diagnosis Discharge Diagnosis (1) Acute exacerbation of chronic heart failure: Code(s): I50.9 - Heart failure, unspecified Status: Acute Assessment and Plan: Lasix was held for CARIDAD Shortness of breath and generalized edema. Blood pressure improved. Takes midodrine at home Lasix Resume 40mg daily & monitor blood pressure & creatinine 07/21 Echo showed LVEF 55-60%, moderate to severe mitral and tricuspid regurg, pulmonary HTN --Resumed metoprolol 10/09 for afib rate control --Cardiology consulted 10/09, signed off 10/14/24: Resume home meds with any changes made by Cardiology. She is at her baseline and does not appear to be in volume overload. (2) UTI (urinary tract infection): Code(s): N39.0 - Urinary tract infection, site not specified Status: Resolved Assessment and Plan: 10/14/24: Pt received full abx treatment for her infection and is no longer receiving at this time. She is appropriate for discharge. (3) Atrial fibrillation with RVR: Code(s): I48.91 - Unspecified atrial fibrillation Status: Chronic Assessment and Plan: 10/14/24: Continue current rate control medications and anticoagulation of Xarelto, Cardizem and Metoprolol. 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 (4) Hypokalemia: Code(s): E87.6 - Hypokalemia Status: Acute Assessment and Plan: 10/14/24: Resolved (5) Wounds, multiple: Code(s): T07.XXXA - Unspecified multiple injuries, initial encounter Status: Chronic Assessment and Plan: 10/14/24: Pt has finished abx therapy for her wounds to the BLE and has been evaluated by wound care. Dry dressings to be applied to wounds DS: Summary Hospital Course Reason for hospitalization: Sepsis, BLE wounds, PAF Hospital Course: This 64 year old female pt with PMH of morbid obesity BMI greater than 50, paroxysmal atrial fibrillation on anticoagulation, moderate to severe mitral and tricuspid valve regurgitation, right ventricular enlargement with history of right ventricular overload, and lipedema with associated lymphedema who has had chronic nonhealing wounds was admitted to the hospital on 10/05/24. She presented to the ER with complaints of having generalized feeling of being unwell. She was found to be septic from the presumed leg wounds and was also found to be in A-fib RVR. She was admitted to the hospital and was started on Abx therapy, rate control medications and Cardiology was consulted in addition to wound therapy. Her hospitalization has been with some met resistance to treatment compliance. Pt is not allowing Home health to come to her home for continued management of her wounds and although she was deemed needing placement by PT/OT, she refuses. Pt has been treated and cleared by Cardiology with instructions to resume treatment with her EP physician in the near future. Her leg wounds were treated with a full course of IV abx and she has now completed all oral course too. She is stable for discharge today with the caviat of APS being contacted as she is likely not safe to be living alone and caring for herself, but refuses to go to rehab/SNF or allow Home Health or other services. Status at Discharge Cognitive/behavioral status at discharge: At baseline. Able to make decisions for herself. Functional status at discharge: uses cane/walker (Pt uses two crutches to ambulate) Overall status at discharge: patient is back to baseline Time Spent with Patient Time attestation: Total time spent providing and/or coordinating discharge services: Time spent: Greater than 30 minutes Specific discharge activities: Need for placement - pt refuses, follow up, medications Exam Narrative: - GENERAL: Pleasant, in no acute distress. Obese - EYES: EOMI. Anicteric. - HENT: Moist mucous membranes. - LUNGS: Clear to auscultation bilaterally, no wheezing, rhonchi, or rales. - CARDIOVASCULAR: Irregular irregular rhythm, normal rate. No murmur. No JVD. - ABDOMEN: Soft, non-tender and non-distended. No palpable masses. - EXTREMITIES: 2+ edema. Peripheral pulses 2+. Non-tender. - NEUROLOGIC: No focal neurological deficits. CN II-XII grossly intact. - PSYCHIATRIC: Awake, Alert and oriented x 3. Appropriate mood and affect. - SKIN: Right knee, swelling, tender bilateral lower extremities, crusting to bilateral legs, wounds wrapped DS: Data Data Completed and Pending Completed studies during hospitalization: ITS Impressions Chest X-Ray 10/05/24 16:00 IMPRESSION: No acute cardiopulmonary process. Labs on day of discharge: Labs from last 24 hours 10/14/24 04:50 WBC 6.0 RBC 3.31 L Hgb 10.1 L Hct 32.5 L MCV 98.2 MCH 30.5 MCHC 31.1 L RDW 16.3 H Plt Count 376 H MPV 9.0 Immature Gran % (Auto) 1.7 H Neut % (Auto) 62.0 Lymph % (Auto) 17.7 L Luce % (Auto) 10.4 H Eos % (Auto) 7.2 H Baso % (Auto) 1.0 Lymph # (Auto) 1.06 Luce # (Auto) 0.6 Eos # (Auto) 0.4 H Baso # (Auto) 0.1 Abs Immat Gran (auto) 0.10 H Absolute Neuts (auto) 3.7 Absolute Nucleated RBC 0.000 Nucleated RBC % 0.0 Sodium 138 Potassium 3.8 Chloride 109 H Carbon Dioxide 29 Anion Gap 0 L BUN 20 H Creatinine 1.00 Estim Creat Clear Calc 70 Estimated GFR 55 L Glucose 79 Calcium 8.7 Magnesium 2.2 Total Bilirubin 1.0 AST 25 ALT 9 Alkaline Phosphatase 106 Total Protein 7.0 Albumin 3.0 L Discharge Plan Discharge Attending physician on discharge: Aleja Beltran Consulting providers: Rufino Lerma Discharging Clinician: Aleja Beltran Anticipated Discharge Date/Time: 10/14/24 12:40 Patient Disposition: Home, Self-Care Activity: as tolerated Diet: heart healthy and low sodium Wound Care Instructions: remove dressing to shower, change dressing daily and other - see discharge instructions Discharge Instructions: Clean wounds to Bilateral lower extremities with soap and water daily. Allow to dry, and for any open areas, cover with clean, dry, dressing. Take all medications as ordered. Follow up with your PCP and your Sheet Metal Helper GASTON. Patient Instructions: Antibiotic Form, Rivaroxaban (By mouth), Heart Failure (DC), Pain Management (DC) Patient Language: Cypriot Stand Alone Forms: General Discharge Information Follow-up/Referrals: Yuri Lugo MD [Primary Care Provider] - Discharge Medications: New metoprolol succinate 50 mg Tablet Extended Release 24 Hr 50 mg PO QAM Qty: 60 0RF Continued Adults Multivitamin 18 mg iron-400 mcg-25 mcg Tablet 1 tablet PO DAILY diltiazem HCl [Cardizem CD] 120 mg capsule,extended release 24hr 120 mg PO DAILY Qty: 60 0RF cyanocobalamin (vitamin B-12) [Vitamin B-12] 1,000 mcg Tablet 1,000 mcg PO QAM Qty: 30 2RF midodrine 10 mg Tablet 10 mg PO TID Qty: 90 1RF Xarelto 20 mg Tablet 10 mg PO DAILY@1700 Qty: 30 0RF furosemide 40 mg Tablet 40 mg PO DAILY Qty: 30 0RF ferrous sulfate 325 mg (65 mg iron) tablet,delayed release (DR/EC) 325 mg PO BID Qty: 14 0RF Discontinued metoprolol tartrate 25 mg Tablet 25 mg PO Q12HR Qty: 60 0RF potassium chloride 10 mEq capsule, extended release 10 meq PO BID Qty: 60 0RF Date of admission: 10/07/24 10:27 Primary Care Provider: Yuri Lugo Admitting Provider: Jeramy Crawford Attending physician on admission: Aleja Beltran Condition: Guarded Prognosis Quality VTE Prophylaxis VTE prophylaxis: pharmacologic ordered Hospitalist MIPS Heart Failure (Exclusion) Patient has history of Heart Transplant or Left Ventricular Assistive Device?: No IF YES, STOP HERE Heart Failure (Qualifier) Patient has current or prior documentation of LVEF less than or equal to 40%, or mod/servere depressed LVSF?: No IF NO, STOP HERE
[2024-10-14 14:00] VITALS: BP 100/61; PULSE 85; RESP 16; TEMP 36.6; O2SAT 97
== END 2024-10-14 16:27 | disposition home or self-care (01) | DRG 871 ==
LOC: ANHED 15:00 → ANHIMU 22:08 → ANH2MED 10-07 17:22
PROVIDERS: Hospitalist; Internal Medicine; Nurse Practitioner; Nurse Practitioner Acute Care; Admitting Provider General Practice; Emergency Provider Student in an Organized Health Care Education/Training Program; PCP Family Medicine; Visit Provider Nurse Practitioner Adult Health
DX: A41.9 Sepsis, unspecified organism (principal); I50.43 Acute on chronic combined systolic (congestive) and diastolic (congestive) heart failure; L03.115 Cellulitis of right lower limb; L97.829 Non-pressure chronic ulcer of other part of left lower leg with unspecified severity; L97.819 Non-pressure chronic ulcer of other part of right lower leg with unspecified severity; L03.116 Cellulitis of left lower limb; N17.9 Acute kidney failure, unspecified; I48.20 Chronic atrial fibrillation, unspecified; Z68.43 Body mass index [BMI] 50.0-59.9, adult; R65.20 Severe sepsis without septic shock; I87.2 Venous insufficiency (chronic) (peripheral); I48.0 Paroxysmal atrial fibrillation; I36.1 Nonrheumatic tricuspid (valve) insufficiency; I34.0 Nonrheumatic mitral (valve) insufficiency; I89.0 Lymphedema, not elsewhere classified; D50.9 Iron deficiency anemia, unspecified; E66.01 Morbid (severe) obesity due to excess calories; Z79.01 Long term (current) use of anticoagulants; Z85.41 Personal history of malignant neoplasm of cervix uteri
CPT/HCPCS: 36415; 71045; 80048; 80053; 80202; 81001; 82565; 83605; 83735; 83880; 84145; 84484; 85025; 85610; 85730; 86140; 87040; 87086; 93005; 96361; 96365; 96375; 97110; 97161; 97165; 97530; 99285; A9270; J0692; J1160; J1836; J2543; J3370; J7030; J7040; J7120